=== PATIENT | female | born 1940 | race Caucasian/White ===

== ENCOUNTER 2018-06-18 00:35 | Emergency (ER) | payer MEDICARE, OTHER, SELFPAY ==
[2018-06-18 00:35] VITALS: BP 183/91; PULSE 87; RESP 16; TEMP 36.4; O2SAT 96; BMI 32.8
--- NOTE | 2018-06-18 01:15 | EKG12_ITS ---
Test Reason : CP Blood Pressure : / mmHG Vent. Rate : 082 BPM Atrial Rate : 082 BPM P-R Int : 142 ms QRS Dur : 082 ms QT Int : 374 ms P-R-T Axes : 057 057 066 degrees QTc Int : 436 ms Normal sinus rhythm Low voltage QRS Borderline ECG Confirmed by AZUL RODRIGUEZ, TORIE ([id number]), science editor TY STAUFFER ([id number]) on 06/22/2018 5:12:04 PM Referred By: SHON Confirmed By:TORIE LIANG MD
--- NOTE | 2018-06-18 01:15 | RAD_ITS ---
STUDY: X-RAY CHEST REASON FOR EXAM: Female, 78 years old. Chest pain. TECHNIQUE: AP portable chest COMPARISON: None. FINDINGS: The lungs are clear and expanded. There is no demonstrated pleural abnormality. Mildly elevated right hemidiaphragm. Normal size heart. Normal mediastinum and augustina. Normal visualized pulmonary arteries. Normal visualized aortic arch and descending thoracic aorta. Normal visualized thoracic spine. Normal visualized ribs, clavicles, and shoulders. There is no demonstrated abnormality of the visualized soft tissue structures of the upper abdomen. RAD/Chest 1 View (Portable) IMPRESSION: No acute cardiopulmonary disease. Electronically Signed: Erik Mckinnon MD at 2:10 EST , Service support ,
[2018-06-18 01:24] LABS: Absolute Lymphocyte Count 3.73 X10^3/ul (0.83-4.51); Absolute Neutrophil Count 3.6 X10^3/uL (2.0-7.7); Basophil# 0.03 X10^3/uL; Basophil% 0.4 % (0-1); Eosinophil# 0.28 X10^3/uL; Eosinophils% 3.3 % (0-5); Hematocrit 39.4 % (37-47); Lymphocyte # 3.73 X10^3/ul (4.0); Lymphocyte % 44.6 % (19-41); Mean Corpuscular Hgb 32.2 pg (27.0-32.0); Mean Corpuscular Volume 97.5 fL (81-99); Mean Platelet Vol. 9.9 fl (6.2-12.0); Monocyte% 8.4 % (0-10); Neutrophil # 3.61 X10^3/uL (2.7-7.7); Neutrophil % 43.2 % (47-70); Platelet Count 226 K/mm3 (150-450); RBC Distribution Width CV 13.2 % (11.6-14.6); Red Blood Count 4.04 M/mm3 (4.2-5.4); White Blood Count 8.4 K/mm3 (4.4-11.0)
[2018-06-18 01:26] VITALS: O2SAT 98
[2018-06-18 01:27] LABS: POSITIVE COUNT NO; POSITIVE DIFFERENTIAL NO; POSITIVE MORPHOLOGY NO
[2018-06-18] MEDS: Mag Hydrox/Al Hydrox/Simeth 30 ML UDC PO (01:27)
[2018-06-18 01:38] LABS: ALB/GLOB Ratio 0.9 RATIO (0.9-2.4); AST(SGOT) 34 U/L (15-37); Alanine Aminotransfer ALT/SGPT 63 U/L (13-56); Albumin, Serum 3.5 g/dL (3.2-5.0); Alkaline Phosphatase 131 U/L (45-117); Anion Gap 13 (5-15); BUN 18 mg/dL (7-18); BUN/Creat Ratio 17.1 RATIO (10-20); Calcium,Total 8.1 mg/dL (8.5-10.1); Chloride 108 mmol/L (98-107); Creatinine, Serum 1.05 mg/dL (0.55-1.02); EST Glomerular Filtration Rate 54 mL/min (>60); Est Glom Filt Rate - Afr Amer 65 mL/min (>60); Estimated Creatinine Clearance 32.23 ml/min; Globulin 3.8 g/dL (2.2-4.2); Glucose 104 mg/dL (74-106); Lipase 126 U/L (73-393); Protein, Total 7.3 g/dL (6.4-8.2); Sodium Level 145 mmol/L (136-145)
[2018-06-18 02:27] VITALS: BP 138/70; PULSE 75; RESP 14; O2SAT 95
--- NOTE | 2018-06-18 03:05 | ED.VISSUMM ---
- ER Visit Summary Date of Service: 06/18/18 Chief Complaint: Burning History of Present Illness: The patient is a 78 F with a burning pain that woke her up tonight. She feels like bile is coming up from her stomach. She has pain in her stomach, chest, and throat. She tried to drink some water with no improvement. She reports a history of acid reflux. She also has a history of high blood pressure and high cholesterol. Denies smoking. She does take meloxicam among her other medications. She denies any history of heart disease, PE, or dissection. Physical Examination: Afebrile and vital signs unremarkable except for a blood pressure of 154/74. Alert and oriented. No acute distress. Moving, sitting, breathing, and speaking without difficulty. Heart regular rate and rhythm. Lungs show mild expiratory wheeze diffusely. Abdomen soft and nontender. Calves nontender. Symmetric. Skin normal without rash, pallor, or diaphoresis. Test Results: EKG showed sinus rhythm at a rate of 82. Chest x-ray showed no acute process. CBC normal. Chloride 108, creatinine 1.05, alkaline phosphatase 131 and ALT 63. Lipase normal. Troponin normal. Emergency Department Course and Treatment: Patient was treated with a GI cocktail while awaiting results. Her symptoms sounded GI in nature, but given her risk factors and age, I did check labs, EKG, chest x-ray. Workup was fairly unremarkable. Alkaline phosphatase and ALT were both very slightly elevated and I do not believe this is of any clinical significance at this point. Troponin was normal. Chest x-ray and EKG were unremarkable. Findings were discussed with the patient. She declined admission, delta EKG, delta troponin, albuterol and breathing treatments. She said the GI cocktail helped a little bit but she still had some burning. She was treated with famotidine. She says she would like to follow-up with her doctor and she declined any further testing or care here emergently. Risks and benefits were discussed. Patient should return right away for any new or worsening issues. Treatment Plan: As above Disposition: Discharge Impression: 1. Chest pain unclear etiology This note was generated with [employer] dictation software. It may contain incorrect words, spelling, and punctuation that were not noted in review of the chart prior to signing ED Disposition - Plan for ED Patient: Referrals: Sarah Moore MD [Primary Care Provider] -
--- NOTE | 2018-06-18 03:08 | ED.DEP ---
ED Disposition - Plan for ED Patient: Instructions: ED Chest Pain Atypical Unkn Cause Referrals: Sarah Moore MD [Primary Care Provider] -
[2018-06-18 03:25] VITALS: BP 157/89; PULSE 85; RESP 16; O2SAT 100
--- NOTE | 2018-06-18 03:25 | ED.RN ---
pressure bandage applied to pt after she bled through first bandage.
== END 2018-06-18 03:27 | disposition home or self-care (01) ==
LOC: ED 01:45
PROVIDERS: Emergency Provider Emergency Medicine; Family Provider Internal Medicine; PCP Internal Medicine
DX: R07.9 Chest pain, unspecified (principal); R10.9 Unspecified abdominal pain; J02.9 Acute pharyngitis, unspecified; I10 Essential (primary) hypertension; K21.9 Gastro-esophageal reflux disease without esophagitis; E78.00 Pure hypercholesterolemia, unspecified
CPT/HCPCS: 71045; 80053; 83690; 84484; 85025; 93005; 99285; A4216; J3490

== ENCOUNTER → 2018-11-24 07:53 | Outpatient (CLI) | payer MEDICARE, OTHER, SELFPAY ==
--- NOTE | 2018-11-24 08:05 | RAD_ITS ---
STUDY: X-RAY - ESOPHAGUS (BARIUM SWALLOW) WITH FLUOROSCOPY REASON FOR EXAM: Female, 78 years old. Dysphagia for solids and liquids. TECHNIQUE: 21 view(s) of the esophagus were obtained following swallowing of barium. FLUOROSCOPY TIME (if supplied): (1:00) minutes/seconds COMPARISON: None. FINDINGS: There is no demonstrated esophageal foreign body. There is dilatation of the esophagus. Decreased peristaltic activity. No mass lesion is seen. The patient ingested a 12 mm tablet of barium. The tablet is trapped at the gastroesophageal junction. There is atherosclerotic calcification of the aortic arch with tortuosity of the descending aorta. Normal visualized pulmonary parenchyma. Normal visualized osseous structures of the thorax. RAD/Esophagus Only IMPRESSION: Dilated esophagus with decreased peristaltic activity suggestive of achalasia. There is trapping of the 12 mm tablet of barium at the gastroesophageal junction. Electronically Signed: Vincenzo Ruby, at 10:23 EDT , Service support ,
== END ==
PROVIDERS: Family Provider Internal Medicine; PCP Internal Medicine; Referring Provider Nurse Practitioner Adult Health; Visit Provider Nurse Practitioner Adult Health
DX: R13.10 Dysphagia, unspecified (principal)
CPT/HCPCS: 74220

== ENCOUNTER 2021-11-26 04:08 | Emergency (ER) | payer MEDICARE, OTHER, SELFPAY ==
[2021-11-26 04:09] VITALS: BP 156/83; PULSE 73; RESP 16; TEMP 35.7; O2SAT 98; BMI 31.4
--- NOTE | 2021-11-26 04:24 | CT_ITS ---
INDICATION: neck pain, neuro EXAMINATION: CT Spine Cervical W/O Contrast Injection TECHNIQUE: Helically acquired images were obtained of the cervical spine. 2D reformatted images were reviewed. A radiation dose optimization technique was used for this scan. IV Contrast dosage and agent: None. COMPARISON: None. FINDINGS: VERTEBRAE: No fracture or traumatic subluxation. No suspicious osseous lesion identified. Minimal chronic-appearing grade 1 retrolisthesis of C2 over C3. Preserved cervical lordosis. DISCS and SPINAL CANAL: Mild degenerative disc space narrowing at C2-3 and C6-7. Multilevel degenerative facet arthropathy and small endplate osteophytes. No significant spinal canal stenosis. There are few levels of mild neural foraminal stenosis secondary to uncovertebral osteophytes and hypertrophic facet changes (on the right at C2-3, bilaterally C3-4, left C4-5, bilaterally at C6-7). NECK SOFT TISSUES: No prevertebral soft tissue swelling. No other acute findings. LUNG APICES: No acute findings. CT/Spine Cervical without Contras IMPRESSION: Mild cervical spondylosis with no acute osseous abnormality. Electronically Signed: Musa Damon MD at 5:08 EDT ,
--- NOTE | 2021-11-26 04:25 | EKG12_ITS ---
Test Reason : BACKPAIN Blood Pressure : / mmHG Vent. Rate : 066 BPM Atrial Rate : 066 BPM P-R Int : 156 ms QRS Dur : 088 ms QT Int : 414 ms P-R-T Axes : 036 014 025 degrees QTc Int : 434 ms Normal sinus rhythm Normal ECG Confirmed by AZUL RODRIGUEZ, TORIE ([id number]), assignment editor MIRIAM MEJIA ([id number]) on 11/27/2021 1:07:43 PM Referred By: MARJNA Confirmed By:TORIE LIANG MD
--- NOTE | 2021-11-26 04:27 | EX.ED.DYSGE1 ---
HPI History of Present Illness Chief Complaint: Back Informant: patient Onset/Context/Timing Onset: Weeks (1) Context: Gradual Onset Timing: Continuous and Waxes and wanes Quality: pain Location: left neck and shoulder, into LUE Current Severity: Severe Maximum Severity: Severe Worsened by: moving head and LUE Relieved by: nothing Associated Symptoms Associated Symptoms: weakness and paresthesias throughout LUE Narrative Narrative: Patient states she is having severe pain in the left side of her neck, shoulder, shoulder blade, and into her left upper extremity. It feels funny in her hand, all fingers. She states her left arm feels heavy/weak. She denies any chest discomfort or shortness of breath or diaphoresis, no nausea or vomiting or abdominal pain. She has had no rash. She did have a shingles shot in the past. She has never had this pain before the past week, she presents at 4 AM because the pain has become so severe tonight for no obvious reason. She denies any injury or obvious trigger for this pain when it started. She does states she has a history of migraines and last year her neurologist with obtained an MRI of her head as well as her cervical spine, and was told that she has degenerative disc disease in her neck but she was not having this pain at that time. She also states that she occasionally gets a shooting pain down her left lower extremity but without back pain and it is not bothering her right now. She denies any bowel or bladder dysfunction. She walked without any difficulty into the emergency department this morning. She denies having headache right now. No vision changes. [facility] Medical History (Updated 11/26/21 @ 05:[address] Peter Perez MD) Degenerative disc disease GERD (gastroesophageal reflux disease) Hypertension Migraines Home Medications cholestyramine-aspartame 4 gram oral powder (Cholestyramine Light) 1 dose PO DAILY 06/18/18 [History Last Taken Unknown] clindamycin HCl 300 mg capsule 1 cap PO 4X/DAY 06/18/18 [History Last Taken Unknown] ergocalciferol (vitamin D2) 1,250 mcg (50,000 unit) capsule (Vitamin D2) 50,000 unit PO QWEEK 06/18/18 [History Last Taken Unknown] meloxicam 15 mg tablet 15 mg PO DAILY 06/18/18 [History Last Taken Unknown] omeprazole 20 mg capsule,delayed release 20 mg PO DAILY 06/18/18 [History Last Taken Unknown] potassium chloride 10 mEq tablet,extended release(part/cryst) 10 meq PO DAILY 06/18/18 [History Last Taken Unknown] hydrocodone-acetaminophen 5-325mg 5mg-325mg 1 tab PO Q6H PRN PRN Pain 3 days #12 TABLETS 11/26/21 [Rx Last Taken Unknown] Allergy/AdvReac Type Severity Reaction Status Date / Time albuterol Allergy Unknown Verified 11/26/21 04:11 amoxicillin Allergy Hives Verified 11/26/21 04:11 Penicillins Allergy Hives Verified 11/26/21 04:11 sulfamethoxazole Allergy Hives Verified 11/26/21 04:11 [From Bactrim] trimethoprim [From Bactrim] Allergy Hives Verified 11/26/21 04:11 Social History Smoking Status: Never smoker ROS ROS ED Constitutional Constitutional ED: Denies chills or fever(s) Eyes Eyes: Denies change in vision or diplopia ENT ENT ED: Denies rhinorrhea or sore throat Cardiovascular Cardiovascular: Denies chest pain or palpitations Respiratory/Chest Respiratory/Chest: Denies cough or dyspnea Gastrointestinal Gastrointestinal: Denies abdominal pain, diarrhea, nausea or vomiting Genitourinary Genitourinary ED: Denies dysuria or hematuria Musculoskeletal Musculoskeletal: Reports extremity pain and neck pain; Denies back pain Integumentary Denies abscess or rash Neurologic Neurologic: Reports as per HPI, paresthesias LUE and weakness; Denies headache(s) Psychiatric Psychiatric: Denies anxiety or suicidal thoughts EXAM Physical Exam Const Vital Signs: 11/26/21 04:09 Temperature 96.3 F L Temperature Source Temporal Pulse Rate 73 Respiratory Rate 16 Blood Pressure 156/83 H Blood Pressure Mean 107 Pulse Ox 98 Oxygen Delivery Method Room Air Positive well nourished and well developed Constitutional Narrative: Uncomfortable in mild painful distress, grunting. No respiratory distress. General Appearance ED: well developed HEENT Reports moist mucous membranes HEENT Narrative: Normal voice normal oropharynx normocephalic and atraumatic Eyes PERRL and EOMs intact bilaterally Neck Neck Narrative: Holding head over toward the right of midline, does not want to move it because it hurts worse to do so. Supple without meningismus. No carotid bruits. Resp normal respiratory effort and clear to auscultation bilaterally Cardio regular rate, regular rhythm, no murmurs and peripheral pulses 2+ throughout GI non-tender and non-distended Auscultation: normoactive bowel sounds Palpation: soft Back/Spine no CVA tenderness General Back: other FROM Extremity normal to inspection Extremity Narrative: Limited range of motion to the left upper extremity due to pain. Exam is limited due to patient not wanting to move anything because it hurts in the left upper extremity, neck, periscapular area. Everywhere is mildly tender in the scapula/neck/shoulder area. General Extremety ED: Yes edema; Negative for pulses abnormal or tenderness General Extremity: edema bilateral lower extremity Details: mild; Negative for pulses abnormal Neuro oriented x3, CN's II-XII intact bilaterally and no sensory deficits noted Neuro Narrative: Mild weakness left upper extremity versus limited by pain. Normal symmetric 2+ biceps and triceps reflexes, same with patella. Dysesthesias all fingers left upper extremity. No rashes normal appearance of skin. Sensorium / Orientation: awake and alert Skin no rashes or lesions noted and no wounds MDM MDM MDM Narrative Medical decision making narrative: I suspect patient is having a multilevel cervical radiculopathy given the history, exam, and a history of DDD in her cervical spine. However the differential certainly could include cardiac etiologies with referred pain, muscular etiologies, and other cervical spine processes. She has no fevers or chills or reason to have an epidural abscess or other similar emergent pathology. She does not have definitive objective neurologic deficits that speak to the need for an emergent MRI. I did left shoulder x-rays in addition, given the area of her pain and limited exam, 4 views of my interpretation shows no acute abnormality but chronic arthritic abnormalities/changes. Cardiac work-up is negative with a normal EKG and a negative troponin high-sensitivity within numerical result of 4. MRI is not available at this time, I performed a CT of her cervical spine it does not show anything acute but it does show multiple areas of neuroforaminal stenoses, and actually at multiple levels on the left which certainly could be consistent with her clinical presentation. She was treated here with morphine which did help quite a bit and she was much more comfortable. I suspect this is all cervical radiculopathy. We will send her home with a prescription for something for pain, and encourage close outpatient follow-up. Should be given her PCP as well as nutrition specialist since she was having weakness and never had this in the past. She certainly she can choose to follow-up with a physician if she so desires but I am referring her to our local physicians. Lab Data Attestation: I reviewed the patient's lab results. Labs: Laboratory Results - last 24 hr 11/26/21 11/26/21 04:32 04:32 WBC 6.6 RBC 4.10 L Hgb 12.5 Hct 37.2 MCV 90.7 MCH 30.5 MCHC 33.6 RDW Std Deviation 42.9 RDW Coeff of Alea 13.0 Plt Count 253 MPV 9.5 Immature Gran % (Auto) 0.200 Neut % (Auto) 49.5 Lymph % (Auto) 35.1 [place] % (Auto) 12.2 H Eos % (Auto) 2.4 Baso % (Auto) 0.6 Absolute Neuts (auto) 3.2 Absolute Lymphs (auto) 2.30 Nucleated RBC % 0 Sodium 136 Potassium 3.3 L Chloride 102 Carbon Dioxide 27.0 Anion Gap 7 BUN 16 Creatinine 1.00 Estim Creat Clear Calc 49.94 Est GFR (MDRD) Af Amer 69 Est GFR (MDRD) Non-Af 57 L BUN/Creatinine Ratio 16.0 Glucose 102 Calcium 8.9 Troponin I High Sens 4 Radiography Diagnostic Testing: Clinical Impression(s) from Imaging Studies Cervical Spine CT 11/26/21 04:24 IMPRESSION: Mild cervical spondylosis with no acute osseous abnormality. Electronically Signed: Musa Damon MD at 5:08 EDT , Rhythm Strip Rhythm Strip: Sinus Rhythm Rate: 65 Ectopy: None EKG Initial EKG: Attestation: I personally reviewed and interpreted this EKG as follows: Interpretation: Sinus Rhythm and No Acute Injury Pattern Comments: normal EKG Discharge Plan Triage Chief Complaint: Back ED Provider: Peter Perez Dx/Rx/DC Orders Clinical Impression: Cervical radiculopathy, acute, Acute pain of left shoulder, Neck pain on left side Instructions: ED Radiculopathy, Cervical Prescriptions: New hydrocodone-acetaminophen [hydrocodone-acetaminophen] 1 TABLET tablet 1 tab PO Q6H PRN PRN (Reason: Pain) 3 Days Qty: 12 0RF No Action clindamycin HCl 300 MG capsule 1 cap PO 4X/DAY Label Comments: Take 1 capsule by mouth four times daily. meloxicam 15 MG tablet 15 mg PO DAILY omeprazole 20 MG capsule 20 mg PO DAILY ergocalciferol (vitamin D2) [Vitamin D2] 50,000 UNIT capsule 50,000 unit PO QWEEK potassium chloride 10 MEQ tablet,ER particles/crystals 10 meq PO DAILY cholestyramine-aspartame [Cholestyramine Light] 210 GM powder 1 dose PO DAILY Label Comments: USE ONE SCOOP mixed in liquid DAILY FOR ONE WEEK THEN MAY INCREASE TOTWICE DAILY DIRECTED Rx Instructions: 1 scoop daily Primary Care Provider: Sarah Moore Referrals: Sarah Moore MD [Primary Care Provider] - (as needed if in need of further pain control) Altaf Hines DO [Med Staff - Active Staff] - (call for spine follow up appt) Disposition Disposition: Home, Self Care
[2021-11-26] MEDS: Ondansetron 4 MG/2 ML Vial IV (04:31)
[2021-11-26] MEDS: Morphine 4 MG/ML Syringe IV (04:31)
[2021-11-26 04:37] LABS: Absolute Neutrophil Count 3.2 X10^3/uL (2.0-7.7); Basophil# 0.04 X10^3/uL; Basophil% 0.6 % (0-1); Eosinophil# 0.16 X10^3/uL; Eosinophils% 2.4 % (0-5); Hematocrit 37.2 % (37-47); Hemoglobin 12.5 g/dL (12.0-15.0); Lymphocyte % 35.1 % (19-41); Mean Corp Hgb Conc 33.6 g/dL (32-36); Mean Corpuscular Hgb 30.5 pg (27.0-32.0); Mean Corpuscular Volume 90.7 fL (81-99); Mean Platelet Vol. 9.5 fl (6.2-12.0); Monocyte% 12.2 % (0-10); NRBC Flagged by Analyzer 0 % (0-5); Neutrophil # 3.24 X10^3/uL (2.7-7.7); Neutrophil % 49.5 % (47-70); Platelet Count 253 K/mm3 (150-450); RBC Distribution Width SD 42.9 fl (35.1-43.9); White Blood Count 6.6 K/mm3 (4.4-11.0)
--- NOTE | 2021-11-26 04:44 | RAD_ITS ---
INDICATION: Pain radiating from neck into left shoulder. EXAMINATION/TECHNIQUE: X-RAY - LEFT XR Shoulder Min 2 Views: AP neutral, internal rotation, external rotation, and scapular Y views COMPARISON: None. FINDINGS: SOFT TISSUES: No significant soft tissue swelling. BONES/JOINTS: No acute fracture or subluxation. Normal alignment. Preservation of the joint space(s). Prominent osteophyte along the medial humeral head at the inferior margin of the glenohumeral joint. Mild acromioclavicular osteophytosis. Punctate calcification abutting superior lateral humeral head at the level of the rotator cuff insertion. RAD/Shoulder min 2 Views IMPRESSION: Mild glenohumeral and acromioclavicular osteoarthrosis with mild calcific tendinitis at level of rotator cuff insertion. Electronically Signed: Musa Damon MD at 5:35 EDT ,
[2021-11-26 05:08] LABS: Anion Gap 7 (5-15); BUN 16 mg/dL (7-18); Calcium,Total 8.9 mg/dL (8.5-10.1); Chloride 102 mmol/L (98-107); EST Glomerular Filtration Rate 57 mL/min (>60); Est Glom Filt Rate - Afr Amer 69 mL/min (>60); Estimated Creatinine Clearance 49.94 ml/min; Glucose 102 mg/dL (74-106); Potassium 3.3 mmol/L (3.5-5.1); Sodium Level 136 mmol/L (136-145); Troponin-I HS 4 pg/mL (3.0-54.0)
[2021-11-26 05:36] VITALS: RESP 18
== END 2021-11-26 05:44 | disposition home or self-care (01) ==
PROVIDERS: Emergency Provider Emergency Medicine; PCP Internal Medicine; Visit Provider Emergency Medicine
DX: M50.11 Cervical disc disorder with radiculopathy, high cervical region (principal); M19.012 Primary osteoarthritis, left shoulder
CPT/HCPCS: 72125; 73030; 80048; 84484; 85025; 93005; 96374; 96375; 99283; A4216; J2405

== ENCOUNTER → 2022-10-08 | Outpatient (CLI) | payer MEDICARE, OTHER, SELFPAY ==
[2022-10-08 10:52] LABS: Absolute Lymphocyte Count 2.11 X10^3/uL (0.83-4.51); Absolute Neutrophil Count 3.9 X10^3/uL (2.0-7.7); Basophil# 0.05 X10^3/uL; Basophil% 0.7 % (0-1); Eosinophil# 0.23 X10^3/uL; Eosinophils% 3.3 % (0-5); Hematocrit 40.9 % (37-47); Hemoglobin 13.5 g/dL (12.0-15.0); Lymphocyte # 2.11 X10^3/ul (0.83-4.51); Lymphocyte % 30.7 % (19-41); Mean Corpuscular Hgb 30.8 pg (27.0-32.0); Mean Corpuscular Volume 93.2 fL (81-99); Monocyte# 0.58 X10^3/uL; Monocyte% 8.4 % (0-10); NRBC Flagged by Analyzer 0 % (0-5); Neutrophil # 3.88 X10^3/uL (2.7-7.7); Neutrophil % 56.6 % (47-70); Platelet Count 250 K/mm3 (150-450); RBC Distribution Width CV 12.9 % (11.6-14.6); RBC Distribution Width SD 44.2 fl (35.1-43.9); Red Blood Count 4.39 M/mm3 (4.2-5.4); White Blood Count 6.9 K/mm3 (4.4-11.0)
[2022-10-08 11:30] LABS: Vitamin D,25 Hydroxy 62.4 ng/mL
[2022-10-08 11:39] LABS: ALB/GLOB Ratio 0.8 RATIO (0.9-2.4); AST(SGOT) 19 U/L (15-37); Alanine Aminotransfer ALT/SGPT 24 U/L (13-56); Albumin, Serum 3.3 g/dL (3.2-5.0); Alkaline Phosphatase 98 U/L (45-117); Anion Gap 6 (5-15); BUN 20 mg/dL (7-18); BUN/Creat Ratio 19.8 RATIO (10-20); Chloride 108 mmol/L (98-107); Cholesterol 189 mg/dL (200); Creatinine, Serum 1.01 mg/dL (0.55-1.02); EST Glomerular Filtration Rate 56 mL/min (>60); Est Glom Filt Rate - Afr Amer 68 mL/min (>60); Globulin 4.1 g/dL (2.2-4.2); Glucose 88 mg/dL (74-106); High Density Lipoprotein 67 mg/dL; Magnesium 2.1 mg/dL (1.6-2.6); Potassium 4.2 mmol/L (3.5-5.1); Protein, Total 7.4 g/dL (6.4-8.2); Sodium Level 141 mmol/L (136-145); Thyroid Stim Hormone (TSH) 1.25 uIU/mL (0.358-3.74); Triglycerides 93 mg/dL; Very Low Density Lipoprotein 19 mg/dL (5-40)
== END | disposition home or self-care (01) ==
LOC: LAB 09:19
PROVIDERS: PCP Internal Medicine; Referring Provider Internal Medicine; Visit Provider Internal Medicine
DX: E55.9 Vitamin D deficiency, unspecified (principal); M19.90 Unspecified osteoarthritis, unspecified site; I10 Essential (primary) hypertension; E78.00 Pure hypercholesterolemia, unspecified
CPT/HCPCS: 36415; 80053; 80061; 82306; 83735; 84443; 85025

== ENCOUNTER 2022-11-12 07:46 | Day surgery (SDC) | payer MEDICARE, OTHER, SELFPAY ==
[2022-11-12] VITALS (7 sets, daily range): BP systolic 117–143; BP diastolic 59–79; PULSE 79–89; RESP 16; TEMP 36.3–36.6; O2SAT 98–100; BMI 30.7
[2022-11-12] MEDS: Lactated Ringers 1,000 ML 15 ML IV (08:16)
--- NOTE | 2022-11-12 08:28 | HP.PCM_ITS ---
History and Physical Date of Admission: 11/12/22 Visit Reasons: COLONOSCOPY Chief Complaint: colonoscopy Is patient in pain?: No Allergies albuterol Allergy (Verified 10/22/22 13:15) Unknownamoxicillin Allergy (Verified 10/22/22 13:15) HivesPenicillins Allergy (Verified 10/22/22 13:15) Hivessulfamethoxazole [From Bactrim] Allergy (Verified 10/22/22 13:15) Hivestrimethoprim [From Bactrim] Allergy (Verified 10/22/22 13:15) Hives Medications cholestyramine-aspartame 4 gram oral powder (Cholestyramine Light) 1 dose PO DAILY 06/18/18 [History Confirmed 10/22/22] omeprazole 20 mg capsule,delayed release 20 mg PO DAILY 06/18/18 [History Confirmed 10/22/22] cholecalciferol (vitamin D3) 125 mcg (5,000 unit) capsule 125 mcg PO DAILY 08/28/22 [History Confirmed 10/22/22] coq10 PO 08/28/22 [History Confirmed 10/22/22] fremanezumab-vfrm 225 mg/1.5 mL subcutaneous auto-injector (Ajovy) 225 mg subcut QMONTH 08/28/22 [History Confirmed 10/22/22] ketonazole shampoo topical 08/28/22 [History Confirmed 10/22/22] magnesium 250 mg tablet See Rx Instructions PO DAILY 08/28/22 [History Confirmed 10/22/22] meclizine 12.5 mg tablet 12.5 mg PO BID-QID PRN 08/28/22 [History Confirmed 10/22/22] methocarbamol 750 mg tablet 750 mg PO .COMPLEX PRN 08/28/22 [History Confirmed 10/22/22] riboflavin (vitamin B2) 100 mg tablet 100 mg PO BID 08/28/22 [History Confirmed 10/22/22] rizatriptan 10 mg tablet See Rx Instructions PO .COMPLEX 08/28/22 [History Confirmed 10/22/22] spironolactone 25 mg tablet 25 mg PO DAILY 08/28/22 [History Confirmed 10/22/22] sucralfate 1 gram tablet 1 g PO BID 08/28/22 [History Confirmed 10/22/22] triamcinolone acetonide 0.1 % topical cream 1 applic topical BID #30 grams 09/11/22 [Rx Confirmed 10/22/22] diclofenac sodium 1 % topical gel 2 g topical BID PRN Osteoarthritis #100 grams 09/30/22 [Rx Confirmed 10/22/22] PFSH Medical History (Updated 10/22/22 @ 13:[address] Shalom Pratt MD) Chronic GERD Degenerative disc disease GERD (gastroesophageal reflux disease) Hearing problem High cholesterol Hypertension IBS (irritable bowel syndrome) Migraines Osteoarthritis Recurrent infections UTI (urinary tract infection) Surgical History (Updated 08/28/22 @ 09:42 by Omega Bustillos) Bunion FH: cholecystectomy H/O: hysterectomy History of bladder surgery History of knee replacement Family History (Updated 08/28/22 @ 09:59 by Omega Bustillos) Mother Hypertension Arthritis Bowel disease Myocardial infarction, Onset Age: 70 Age related osteoporosisFather Diabetes Myocardial infarction, Onset Age: 50 Social History (Updated 09/11/22 @ 15:26 by Omega Bustillos) adopted: No household members: spouse housing: house number of children: 6 current occupational status: employed current occupation: [employer] current occupational exposures/hazards: No pets and animals: Yes pets and animals: cat(s) leisure activities: exercise, reading and other history of recent travel: No sexually active: No Smoking Status: Never smoker alcohol intake: never substance use type: does not use well-balanced diet: daily or most days caffeine: No eating out: rarely or never during the past year weight has: increased > 10 lbs what type of physical activity do you participate in: walking and aerobics 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 Sonya Sethi for surgical consultation regarding colonoscopy. Most recent colonoscopy was January 09, [address] Bhavin Brown. By report she might of had previous polyps. It is a note that she has also had a previous esophagogastroduodenoscopy November 02, 2018 which demonstrated normal esophagus some mild gastritis. That was performed by Dr. Toy Clay. Past 2 years the patient's had progressive diarrhea. She is tentatively been diagnosed as having irritable bowel syndrome. To help with her symptoms she was started on colestipol which has helped. No bright red blood per rectum or melena. Last colonoscopy was over 10 years ago. She does have any abdominal pain. Note no unexpected weight loss. 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 She does get swelling in her legs but she is able to relieve that in the afternoons by elevating her legs. She has been told that recently a slight heart murmur was detected but that that is not felt to be of consequence. She is interested however in trying to help determine the potential source of her diarrhea and any other particular treatment patterns that might be pertinent. ROS General General: Yes fatigue; No weight change, appetite, colon cancer, breast cancer or weakness HEENT HEENT: Yes eye surgery; No difficulty swallowing, eye injury, swollen glands or hoarseness Endo Endocrine: No thyroid disease, diabetes mellitus, thyroid cancer, Hair loss, heat intolerance or cold intolerance Skin Skin: Yes rash; No changing moles Musc Musculoskeletal: Yes arthritis; No back problems, rheumatoid arthritis, gout or joint pain Cardio Cardiovascular: Yes murmur and high blood pressure; No pacemaker, heart disease, atrial fibrillation, heart attack, heart stent, palpitations, shortness of breat with exertion or chest pain Psych Psychiatric: No depression, anxiety or hearing voices Resp Respiratory: Yes shortness of breath, No sleep apnea, No cough, No COPD, No asthma, No emphysema and No wheezing Gastro Gastrointestinal: No abdominal pain, No nausea or vomiting, Yes diarrhea, No constipation, No blood in stool, Yes acid reflux, Yes hemorrhoids, No ulcers, No gallbladder problem and No black,tarry stools Kevin Hematologic: No blood thinners, No blood disorders, No bleeding, No anemia and No blood clots Neuro Neurologic: No system reviewed and no additional complaints, except as documented, No as per HPI, No abnormal gait, No abnormal hearing, No abnormal movements, No abnormal speech, No behavioral changes, No burning sensations, No confusion, No convulsions, No disequilibrium, No dizziness, No localized weakness, No frequent falls, No headache(s), No lack of coordination, No loss of vision, No memory loss, No numbness, No other visual disturbances, No radicular pain, No restless legs, No sensory deficit, No syncope, No tingling, No tremor(s), No weakness and No other Exam Const General: cooperative, comfortable and no acute distress [facility] Head: normal to inspection Eyes General: appearance normal, both eyes and all related structures Neck Neck: normal visual inspection Chest Chest palpation & inspection: normal inspection of the chest Resp Effort & Inspection: normal respiratory effort Auscultation: clear to auscultation bilaterally Cardio Rate: regular rate Rhythm: regular rhythm GI Inspection: normal to inspection Palpation: soft and no hepatosplenomegaly Musc Cervical Spine: normal cervical lordosis Skin General: no rashes or lesions noted Neuro General: patient alert and patient awake Extrem Other: 2+ bilateral extremity nonpitting edema Psych Appearance: grossly normal Assessment and Plan Assessment and Plan (1) Chronic diarrhea: Status: Chronic Plan Chronic diarrhea of undetermined etiology. The patient is living a very high quality of life and is still fully employed for close to 40 hours/week. I recommend to her colonoscopy with possible biopsy or polypectomy as indicated. Careful inspection for source of diarrhea with possible random biopsies. She is had an opportunity ask and have questions answered. I very much appreciate the kind option of assisting with the surgical care. We will schedule procedure at her discretion. Copy: Dr. Sonya Pratt M.D., F.A.C.S I have examined the patient and the H&P has been reviewed. There are no clinical changes since date of exam. Shalom Pratt M.D., F.A.C.S.
--- NOTE | 2022-11-12 09:00 | COLBX_PTH ---
PATIENT: KENDAL SHARP LOC: EN U#:[id number] AGE/SX: 82/F ROOM: RE11/12/[address]: Dr. Shalom Pratt MD : 1940 BED: DIS: 11/12/2022 SPEC #: [id number] RECD: 11/12/22 11:48 STATUS: TYSHAWN ARTEM #: [id number] KEKE: 11/12/22 09:[address]: Shalom Pratt DEPT: SURGICAL PATHOLOGY RECD BY: Pham Jensen ENTERED: 11/12/22 12:21 SP TYPE: COLON BX OT DR: Dr. Sonya Sethi MD Tissues: A - COLON BIOPSY B - Sigmoid colon biopsy Procedures: Surgery Specimen Level IV HEADER OPERATION: Colonoscopy (MAC) with polypectomy and biopsies PRE-OP DIAGNOSIS: Chronic diarrhea TISSUE SUBMITTED: A - Random colon biopsies, B - Distal sigmoid polyp MICROSCOPIC DIAGNOSIS A. Colon, random biopsy: No pathologic change. B. Distal sigmoid colon polyp, biopsy: Benign fragment of colonic mucosa with thermal artifact. AM:jorge 11/13/2022 MICROSCOPIC DESCRIPTION Slides are reviewed. GROSS DESCRIPTION A - Received in fixative is one container labeled with the patient's name and designated random colon biopsy. The specimen consists of multiple irregular fragments of light carranza soft tissue that in aggregate measure 1.5 x 0.5 x 0.1 cm. The specimen is totally submitted in one cassette. B - Received in fixative is one container labeled with the patient's name and designated distal sigmoid polyp. The specimen consists of one irregular fragment of light carranza soft tissue that measures 0.2 x 0.2 x 0.1 cm. The specimen is totally submitted in one cassette. / SJ:jorge 11/12/2022 TC:5 CPT: 56551 x2
--- NOTE | 2022-11-12 09:53 | OP.CCLET_ITS ---
11/12/2022 Sonya Sethi [facility] [address] [place] [address] Re : Colonoscopy procedure for [facility] Dear Dr. Sethi This procedure was performed on Saturday, November 12, 2022. My impressions and recommendations are as follows: Impressions : - Hemorrhoids found on perianal exam. - One 4 mm polyp in the distal sigmoid colon, removed with a hot snare. Resected and retrieved. - Diverticulosis in the sigmoid colon and in the descending colon. - Biopsies were taken with a cold forceps from the entire colon for evaluation of microscopic colitis. Recommendations : - Discharge patient to home. - Resume previous diet. - Continue present medications. - Repeat colonoscopy in 5 years for surveillance based on pathology results. - Telephone my office for pathology results in 1 week. My findings are described in the full procedure note, which is enclosed. If I can be of further assistance, please feel free to contact me at Doctor phone number(s): Work: . Sincerely, Shalom Pratt MD 11/12/2022 9:52:34 AM This report has been signed electronically.
--- NOTE | 2022-11-12 09:53 | OP.COLON_ITS ---
Patient Name: Clemencia Taylor Procedure Date: 11/12/2022 7:21 AM Date of : 1940 Age: 82 Procedure: Colonoscopy Indications: Chronic diarrhea Providers: Shalom Pratt MD Referring MD: Sonya Sethi Medicines: See the Anesthesia note for documentation of the administered medications Patient Profile: Last Colonoscopy: December 2010. Complications: No immediate complications. Procedure: Pre-Anesthesia Assessment: - Prior to the procedure, a History and Physical was performed, and patient medications and allergies were reviewed. The patient's tolerance of previous anesthesia was also reviewed. The risks and benefits of the procedure and the sedation options and risks were discussed with the patient. All questions were answered, and informed consent was obtained. Prior Anticoagulants: The patient has taken no previous anticoagulant or antiplatelet agents. ASA Grade Assessment: II - A patient with mild systemic disease. After reviewing the risks and benefits, the patient was deemed in satisfactory condition to undergo the procedure. After I obtained informed consent, the scope was passed under direct vision. Throughout the procedure, the patient's blood pressure, pulse, and oxygen saturations were monitored continuously. The pediatric colonoscope was introduced through the anus and advanced to the cecum, identified by appendiceal orifice and ileocecal valve. The colonoscopy was performed without difficulty. The patient tolerated the procedure well. The quality of the bowel preparation was good. The ileocecal valve was photographed. Scope In: 9:28:35 AM Scope Withdrawal Time 0 hours 10 minutes 24 seconds Scope Out: 9:46:15 AM Total Procedure Duration Time 0 hours 17 minutes 40 seconds Findings: Hemorrhoids were found on perianal exam. A 4 mm polyp was found in the distal sigmoid colon. The polyp was sessile. The polyp was removed with a hot snare. Resection and retrieval were complete. Multiple diverticula were found in the sigmoid colon and descending colon. Biopsies for histology were taken with a cold forceps from the entire colon for evaluation of microscopic colitis. Impression: - Hemorrhoids found on perianal exam. - One 4 mm polyp in the distal sigmoid colon, removed with a hot snare. Resected and retrieved. - Diverticulosis in the sigmoid colon and in the descending colon. - Biopsies were taken with a cold forceps from the entire colon for evaluation of microscopic colitis. Recommendation: - Discharge patient to home. - Resume previous diet. - Continue present medications. - Repeat colonoscopy in 5 years for surveillance based on pathology results. - Telephone my office for pathology results in 1 week. Procedure Code(s): --- Professional --- 69264, Colonoscopy, flexible; with removal of tumor(s), polyp(s), or other lesion(s) by snare technique 08603, 59, Colonoscopy, flexible; with biopsy, single or multiple Diagnosis Code(s): --- Professional --- K64.9, Unspecified hemorrhoids D12.5, Benign neoplasm of sigmoid colon K52.9, Noninfective gastroenteritis and colitis, unspecified K57.30, Diverticulosis of large intestine without perforation or abscess without bleeding CPT copyright 2017 [employer]. All rights reserved. The codes documented in this report are preliminary and upon resource agent review may be revised to meet current compliance requirements. Shalom Pratt MD 11/12/2022 9:52:34 AM This report has been signed electronically. Number of Addenda: 0 Note Initiated On: 11/12/2022 7:21 AM
--- NOTE | 2022-11-12 09:58 | NURSING ---
dr awan spoke to family
== END 2022-11-12 10:47 | disposition home or self-care (01) ==
LOC: EN 07:46 → AC 07:47
PROVIDERS: PCP Internal Medicine; Referring Provider Internal Medicine; Visit Provider Surgery
PROC: 0DJD8ZZ Inspection of Lower Intestinal Tract, Via Natural or Artificial Opening Endoscopic (ICD-10-PCS; CPT 45378; principal; 2022-11-12 08:55)
DX: K57.30 Diverticulosis of large intestine without perforation or abscess without bleeding (principal); K29.70 Gastritis, unspecified, without bleeding; I10 Essential (primary) hypertension; K64.9 Unspecified hemorrhoids; E78.00 Pure hypercholesterolemia, unspecified; D12.5 Benign neoplasm of sigmoid colon; K52.9 Noninfective gastroenteritis and colitis, unspecified
CPT/HCPCS: 45385; 45380; 88305; J7120; J2405

== ENCOUNTER 2022-11-12 11:28 | Emergency (ER) | payer MEDICARE, OTHER, SELFPAY ==
[2022-11-12 11:29] VITALS: BP 129/64; PULSE 83; RESP 14; TEMP 36.6; O2SAT 99; BMI 31.1
--- NOTE | 2022-11-12 11:50 | RAD_ITS ---
INDICATION: LEFT FOOT PAIN AFTER SYNCOPAL EPISODE. EXAMINATION/TECHNIQUE: X-RAY - LEFT XR Foot Min 3 Views 3 VIEWS COMPARISON: None. FINDINGS: SOFT TISSUES: No soft tissue swelling or gas. No radiopaque foreign body. BONES/JOINTS: No acute fracture or subluxation. Normal alignment. Preservation of the joint space.. No sclerotic or destructive changes observed. RAD/Foot min 3 Views IMPRESSION: No acute osseous abnormality of the left foot. Electronically Signed: Chente De La Cruz MD at 12:12 EDT Reading Location ID and State: [id number] / Unknown , Service support ,
--- NOTE | 2022-11-12 12:54 | EX.ED.DYSGE1 ---
HPI History of Present Illness Chief Complaint: Lower Extremity Injury Narrative Narrative: Patient is a 82-year-old female who had a injury yesterday. Patient was getting ready for her colonoscopy prep and in the middle of drinking her colonoscopy prep. Patient had a near syncopal episode where she had fallen, twisting her left foot somehow. Patient still was able to complete the colonoscopy prep yesterday, and she did have a colonoscopy today were only 1 polyp was removed. No complications during the colonoscopy today. Patient is having pain to the top of her left foot. Patient works at a [employer] where she is walking and moving frequently. She is due to start working again on November 14. Patient is able to walk with pain on the left foot. Patient has no other injury from the fall yesterday. Patient did not hit her head. She has no chest pain or shortness of breath, no other acute complaints. [facility] Medical History (Updated 11/12/22 @ 12:[address] Altaf Vidal, DO) Chronic GERD CPAP (continuous positive airway pressure) dependence Degenerative disc disease GERD (gastroesophageal reflux disease) Hearing problem Heart murmur High cholesterol History of echocardiogram History of IBS Hypertension IBS (irritable bowel syndrome) Migraines MRSA infection Non-smoker Osteoarthritis Recurrent infections Sleep apnea UTI (urinary tract infection) Wears glasses Wears hearing aid Home Medications omeprazole 20 mg capsule,delayed release 40 mg PO DAILY 06/18/18 [History Last Taken Unknown] cholecalciferol (vitamin D3) 125 mcg (5,000 unit) capsule 125 mcg PO DAILY 08/28/22 [History Last Taken Unknown] coq10 1 tab PO 1XD 08/28/22 [History Last Taken Unknown] fremanezumab-vfrm 225 mg/1.5 mL subcutaneous auto-injector (Ajovy) 225 mg subcut QMONTH 08/28/22 [History Last Taken Unknown] ketonazole shampoo 1 applic topical 1XD PRN dry skin 08/28/22 [History Last Taken Unknown] magnesium 250 mg tablet See Rx Instructions PO DAILY 08/28/22 [History Last Taken Unknown] meclizine 12.5 mg tablet 12.5 mg PO BID-QID PRN motion sickness 08/28/22 [History Last Taken Unknown] methocarbamol 750 mg tablet 750 mg PO .COMPLEX PRN pain 08/28/22 [History Last Taken Unknown] riboflavin (vitamin B2) 100 mg tablet 100 mg PO BID 08/28/22 [History Last Taken Unknown] rizatriptan 10 mg tablet See Rx Instructions PO .COMPLEX 08/28/22 [History Last Taken Unknown] spironolactone 25 mg tablet 25 mg PO DAILY 08/28/22 [History Last Taken Unknown] sucralfate 1 gram tablet 1 g PO BID 08/28/22 [History Last Taken Unknown] triamcinolone acetonide 0.1 % topical cream 1 applic topical BID #30 grams 09/11/22 [Rx Last Taken Unknown] diclofenac sodium 1 % topical gel 2 g topical BID PRN Osteoarthritis #100 grams 09/30/22 [Rx Last Taken Unknown] colestipol 1 gram tablet 1 g PO DAILY 11/11/22 [History Last Taken Unknown] Allergy/AdvReac Type Severity Reaction Status Date / Time albuterol Allergy Unknown Verified 11/12/22 11:29 amoxicillin Allergy Hives Verified 11/12/22 11:29 Penicillins Allergy Hives Verified 11/12/22 11:29 sulfamethoxazole Allergy Hives Verified 11/12/22 11:29 [From Bactrim] trimethoprim [From Bactrim] Allergy Hives Verified 11/12/22 11:29 Family History Mother Hypertension Arthritis Bowel disease Myocardial infarction, Onset Age: 70 Age related osteoporosis Father Diabetes Myocardial infarction, Onset Age: 50 Surgical History Bunion (~1988) FH: cholecystectomy H/O: hysterectomy (~1980) History of bladder surgery (~2003) History of knee replacement (~2013) Social History (Updated 09/11/22 @ 15:26 by Omega Bustillos) adopted: No household members: spouse housing: house number of children: 6 current occupational status: employed current occupation: [employer] current occupational exposures/hazards: No pets and animals: Yes pets and animals: cat(s) leisure activities: exercise, reading and other history of recent travel: No sexually active: No Smoking Status: Never smoker alcohol intake: never substance use type: does not use well-balanced diet: daily or most days caffeine: No eating out: rarely or never during the past year weight has: increased > 10 lbs what type of physical activity do you participate in: walking and aerobics brenda/buddhist: Religion seatbelt use: always do you feel safe at home: Yes ROS ROS ED ROS Narrative REVIEW OF SYSTEMS: Unless otherwise stated in this report the patient's positive and negative responses for review of systems for constitutional, eyes, ENT, cardiovascular, respiratory, gastrointestinal, neurological, , musculoskeletal, and integument systems and related systems to the presenting problem are either stated in the history of present illness or were not pertinent or were negative for the symptoms and/or complaints related to the presenting medical problem. EXAM Physical Exam Narrative Exam Narrative: Vital signs reviewed and patient is not hypoxic. General: The patient appears well and in no apparent distress. Patient is resting comfortably on cart. Not toxic, lethargic, or listless. Skin: Warm, dry, no pallor noted. There is no rash noted. Head: Normocephalic, atraumatic Eye: Normal conjunctiva, no drainage, EOMI. PERRL. Ears, Nose, Mouth, and Throat: oral mucosa is moist. Nares patent. Mouth without vesicles. Cardiovascular: Regular Rate and Rhythm, no murmurs, gallops, or rubs Respiratory: Patient is in no distress, no accessory muscle use, lungs are clear to auscultation, no wheezing, rales or rhonchi Musculoskeletal: The patient has full range of motion of all extremities and joints with no difficulty except to left foot. Patient has normal swelling inflammation to bilateral lateral malleoli, patient states that is chronic and dependent edema. Patient has moderate tenderness palpation to the dorsal aspect of the midfoot with minimal redness. Patient has mild pain with flexion extension of all 5 toes as well. Patient's Achilles tendon is intact. No pain to proximal fibular head. No pain to the medial or lateral malleoli of the left ankle. Patient has no motor, no sensory deficits. No obvious deformity to the left foot. Neurological: A&O x4, normal speech, no focal neurological deficits. Psychiatric: Cooperative Const Vital Signs: 11/12/22 11:29 Temperature 97.8 F Temperature Source Temporal Pulse Rate 83 Respiratory Rate 14 Blood Pressure 129/64 H Blood Pressure Mean 85 Pulse Ox 99 Oxygen Delivery Method Room Air MDM MDM MDM Narrative Medical decision making narrative: Procedure note: Patient had Valentino wrap and postop shoe placed to the left foot. Splint was assisted with Dr. Vidal. The patient was neurovascular intact before and after the splint was placed. The affected bones/injured area had proper alignment in a splint. Education on splint care at home was given at bedside. Patient and family had no questions at disposition. Patient was educated using ice, use anti-inflammatories, and wear Valentino wrap and postop shoe when she is ambulating for the next 3 to 5 days. Patient was given a work note with restrictions as well, she is due to go back to work at the [employer] on November 14. Patient had no abnormalities during the colonoscopy today. Patient at bedside. No questions at discharge. Patient x-ray showed no acute findings Radiography X-Ray: Read by ED Physician (Left foot x-ray shows no acute fracture, dislocation or acute abnormality.) Diagnostic Testing: Clinical Impression(s) from Imaging Studies Foot X-Ray 11/12/22 11:50 IMPRESSION: No acute osseous abnormality of the left foot. Electronically Signed: Chente De La Cruz MD at 12:12 EDT Reading Location ID and State: [facility] / Unknown , Service support , Discharge Plan Triage Chief Complaint: Lower Extremity Injury ED Provider: Altaf Vidal Dx/Rx/DC Orders Clinical Impression: Acute pain of left foot, Sprain of foot, left Instructions: Treating?Strains and Sprains, ED Bandage Elastic Wrap, ED Foot Sprain, ED RICE, ED Splints and Casts Prescriptions: No Action triamcinolone acetonide 0.1 % cream 1 applic topical BID Qty: 30 1RF Ajovy Autoinjector 225 mg/1.5 mL auto-injector 225 mg subcut QMONTH methocarbamol 750 mg tablet 750 mg PO .COMPLEX PRN (Reason: pain) Rx Instructions: 1 - 2 tabs orally daily PRN; rizatriptan 10 mg tablet See Rx Instructions PO .COMPLEX Rx Instructions: take 1 tab at onset of headache; if no relief may repeat 1 tab after at least 2 hrs; max = 3 tabs/24 hr PO spironolactone 25 mg tablet 25 mg PO DAILY sucralfate 1 gram tablet 1 g PO BID ketonazole shampoo 1 applic topical 1XD PRN (Reason: dry skin) Rx Instructions: 2% meclizine 12.5 mg tablet 12.5 mg PO BID-QID PRN (Reason: motion sickness) magnesium 250 mg tablet See Rx Instructions PO DAILY Rx Instructions: 2 tabs =500mg orally daily; coq10 1 tab PO 1XD Rx Instructions: 300mg daily riboflavin (vitamin B2) 100 mg tablet 100 mg PO BID cholecalciferol (vitamin D3) 125 mcg (5,000 unit) capsule 125 mcg PO DAILY omeprazole 20 MG capsule 40 mg PO DAILY colestipol 1 gram tablet 1 g PO DAILY diclofenac sodium 1 % gel 2 g topical BID PRN (Reason: Osteoarthritis) Qty: 100 5RF Rx Instructions: apply to affected area, wash hands after application. Stand Alone Forms: ED Work / School Excuse Primary Care Provider: Sonya Sethi Referrals: Sonya Sethi MD [Primary Care Provider] - Activity Restrictions/Additional Instructions: Ice 20 minutes on, 20 minutes off. Follow-up with PCP in the next 3 to 5 days no improvement. Work note given. Continue anti-inflammatories and ice. Use the Valentino wrap and a postop shoe only when you are ambulating. Disposition Disposition: Home, Self Care Discharge Date/Time: 11/12/22 12:57
== END 2022-11-12 12:57 | disposition home or self-care (01) ==
PROVIDERS: Emergency Provider Emergency Medicine; PCP Internal Medicine; Visit Provider Emergency Medicine
DX: S93.602A Unspecified sprain of left foot, initial encounter (principal); M79.672 Pain in left foot; I10 Essential (primary) hypertension; E78.00 Pure hypercholesterolemia, unspecified; K21.9 Gastro-esophageal reflux disease without esophagitis; G43.909 Migraine, unspecified, not intractable, without status migrainosus; Z90.49 Acquired absence of other specified parts of digestive tract; Z90.710 Acquired absence of both cervix and uterus; Z96.659 Presence of unspecified artificial knee joint; W18.39XA Other fall on same level, initial encounter
CPT/HCPCS: 73630; 99282

== ENCOUNTER 2023-06-04 15:49 | Emergency (ER) | payer MEDICARE, OTHER, SELFPAY ==
[2023-06-04 15:50] VITALS: BP 159/83; PULSE 96; RESP 16; TEMP 36.5; O2SAT 98; BMI 33.2
--- NOTE | 2023-06-04 16:38 | CT_ITS ---
STUDY: CT ABDOMEN AND PELVIS WITH CONTRAST REASON FOR EXAM: Female, 83 years old. abdominal pain RADIATION DOSAGE (If Supplied By Facility): CTDIvol = ( 12.72 ) mGy, DLP = ( 739.85 ) mGycm TECHNIQUE: Transaxial images were obtained from the dome of the diaphragm to the symphysis pubis without oral contrast. IV 100mL Isovue-300 was administered. Sagittal and coronal images were reconstructed. Individualized dose optimization techniques were used for this CT. COMPARISON: None. FINDINGS: Calcified granuloma left lung base. Calcific coronary artery disease and aortic valve disease. Normal liver. Gallbladder surgically absent. Normal spleen. Normal pancreas. Normal bilateral adrenal glands. Normal right kidney. Normal left kidney. Normal visualized stomach. Air-fluid levels in the small bowel. Colonic diverticulosis. Increased stool in the colon. Appendix not identified. Calcified plaque along the aorta and its branches. Normal inferior vena cava. Normal retroperitoneum. Normal urinary bladder. Fat-containing umbilical hernia. Grade [address] L4-5. [address]/Abdomen/Pelvis W IV Cont ONLY IMPRESSION: Mild ileus. Increased stool. Electronically Signed: Petey Kunz MD at 18:23 EST ,
[2023-06-04 17:09] LABS: Color, Urine Yellow (Yellow); Glucose, Dipstick Normal (Normal); Ketone-Dipstick Negative (Negative); Leukocyte Esterase-Dipstick 500 /ul (Negative); Mucous, Urine 0 SEEN /hpf (<or=2+); Nitrite-Dipstick Negative (Negative); Occult Blood-Urine 10 /ul (Negative); Protein-Dipstick 15 mg/dl (Negative); Red Blood Cells-Urine 0 SEEN /hpf (0-5); Urine Bilirubin Dipstick Negative (Negative); Urine Clarity Sl. Cloudy (Clear); Urine Urobilinogen Normal (Normal)
[2023-06-04 17:11] LABS: Absolute Neutrophil Count 6.1 X10^3/uL (2.0-7.7); Basophil# 0.05 X10^3/uL; Basophil% 0.5 % (0-1); Eosinophil# 0.28 X10^3/uL; Hematocrit 39.1 % (37-47); Hemoglobin 13.1 g/dL (12.0-15.0); Lymphocyte % 23.5 % (19-41); Mean Corp Hgb Conc 33.5 g/dL (32-36); Mean Corpuscular Hgb 30.5 pg (27.0-32.0); Mean Corpuscular Volume 90.9 fL (81-99); Mean Platelet Vol. 9.5 fl (6.2-12.0); Monocyte# 0.74 X10^3/uL; Monocyte% 7.9 % (0-10); NRBC Flagged by Analyzer 0 % (0-5); Neutrophil # 6.05 X10^3/uL (2.7-7.7); Neutrophil % 64.8 % (47-70); Platelet Count 249 K/mm3 (150-450); RBC Distribution Width CV 12.5 % (11.6-14.6); RBC Distribution Width SD 41.3 fl (35.1-43.9); White Blood Count 9.4 K/mm3 (4.4-11.0)
[2023-06-04 17:16] LABS: Bacteria RARE /hpf (None Seen); Squamous Epithelial Cells - UA 0-5 SEEN /hpf (5-10); White Blood Cells >100 SEEN /hpf (0-5)
[2023-06-04 17:39] LABS: ALB/GLOB Ratio 0.9 RATIO (0.9-2.4); AST(SGOT) 22 U/L (15-37); Alanine Aminotransfer ALT/SGPT 32 U/L (13-56); Albumin, Serum 3.6 g/dL (3.2-5.0); Alkaline Phosphatase 87 U/L (45-117); Anion Gap 6 (5-15); BUN 24 mg/dL (7-18); BUN/Creat Ratio 20.5 RATIO (10-20); Calcium,Total 9.3 mg/dL (8.5-10.1); Chloride 108 mmol/L (98-107); Creatinine, Serum 1.17 mg/dL (0.55-1.02); EST Glomerular Filtration Rate 47 mL/min (>60); Est Glom Filt Rate - Afr Amer 57 mL/min (>60); Estimated Creatinine Clearance 33.45 ml/min; Globulin 4.2 g/dL (2.2-4.2); Glucose 98 mg/dL (74-106); Lipase 30 U/L (13-75); Potassium 3.7 mmol/L (3.5-5.1); Protein, Total 7.8 g/dL (6.4-8.2); Sodium Level 138 mmol/L (136-145)
--- NOTE | 2023-06-04 17:55 | ED.VIS.GI ---
HPI HPI - GI History of Present Illness Chief Complaint: Abd Pain Narrative Narrative: 83-year-old female presenting with left lower quadrant abdominal pain. She states at times she has pain in the left back as well. Denies history of kidney stones or diverticulitis. Patient states her pain has been there constantly in the left lower quadrant for 2 weeks. It comes and goes in the left flank. Denies diarrhea or constipation. Has not had any fevers and may have had some chills. No urinary or vaginal complaints. She is eating and drinking normally. She is not vomiting. Patient states she was seen by her PCP today and was sent to the ER for evaluation. Urinalysis apparently was negative in the office. [facility] Medical History Chronic GERD CPAP (continuous positive airway pressure) dependence Degenerative disc disease GERD (gastroesophageal reflux disease) Hearing problem Heart murmur High cholesterol History of echocardiogram History of IBS Hypertension IBS (irritable bowel syndrome) Migraines MRSA infection Non-smoker Osteoarthritis Recurrent infections Sleep apnea UTI (urinary tract infection) Wears glasses Wears hearing aid Home Medications cholecalciferol (vitamin D3) 125 mcg (5,000 unit) capsule 125 mcg PO DAILY 08/28/22 [History Last Taken Unknown] coq10 1 tab PO 1XD 08/28/22 [History Last Taken Unknown] fremanezumab-vfrm 225 mg/1.5 mL subcutaneous auto-injector (Ajovy) 225 mg subcut QMONTH 08/28/22 [History Last Taken Unknown] ketonazole shampoo 1 applic topical 1XD PRN dry skin 08/28/22 [History Last Taken Unknown] magnesium 250 mg tablet See Rx Instructions PO DAILY 08/28/22 [History Last Taken Unknown] methocarbamol 750 mg tablet 750 mg PO .COMPLEX PRN pain 08/28/22 [History Last Taken Unknown] riboflavin (vitamin B2) 100 mg tablet 100 mg PO BID 08/28/22 [History Last Taken Unknown] rizatriptan 10 mg tablet See Rx Instructions PO .COMPLEX 08/28/22 [History Last Taken Unknown] triamcinolone acetonide 0.1 % topical cream 1 applic topical BID #30 grams 09/11/22 [Rx Last Taken Unknown] diclofenac sodium 1 % topical gel 2 g topical BID PRN Osteoarthritis #100 grams 09/30/22 [Rx Last Taken Unknown] diphenoxylate-atropine 2.5 mg-0.025 mg tablet 1 tab PO BID PRN diarrhea #30 tabs 05/19/23 [Rx Last Taken Unknown] meclizine 12.5 mg tablet 12.5 mg PO BID-QID PRN motion sickness #30 tabs 05/19/23 [Rx Last Taken Unknown] omeprazole 20 mg capsule,delayed release 40 mg (2 x 20 mg) PO DAILY #90 caps 05/19/23 [Rx Last Taken Unknown] spironolactone 25 mg tablet 25 mg PO DAILY #90 tabs 05/19/23 [Rx Last Taken Unknown] sucralfate 1 gram tablet 1 g PO BID #180 tabs 05/19/23 [Rx Last Taken Unknown] colestipol 1 gram tablet 1 g PO TID #270 tabs 05/26/23 [Rx Last Taken Unknown] Allergy/AdvReac Type Severity Reaction Status Date / Time albuterol Allergy Unknown Verified 06/04/23 15:50 amoxicillin Allergy Hives Verified 06/04/23 15:50 Penicillins Allergy Hives Verified 06/04/23 15:50 sulfamethoxazole Allergy Hives Verified 06/04/23 15:50 [From Bactrim] trimethoprim [From Bactrim] Allergy Hives Verified 06/04/23 15:50 Family History Mother Hypertension Arthritis Bowel disease Myocardial infarction, Onset Age: 70 Age related osteoporosis Father Diabetes Myocardial infarction, Onset Age: 50 Surgical History Bunion (~1988) FH: cholecystectomy H/O: hysterectomy (~1980) History of bladder surgery (~2003) History of knee replacement (~2013) Social History adopted: No household members: spouse housing: house number of children: 6 current occupational status: employed current occupation: [employer] current occupational exposures/hazards: No pets and animals: Yes pets and animals: cat(s) leisure activities: exercise, reading and other history of recent travel: No sexually active: No Smoking Status: Never smoker alcohol intake: never substance use type: does not use well-balanced diet: daily or most days caffeine: No eating out: rarely or never during the past year weight has: increased > 10 lbs what type of physical activity do you participate in: walking and aerobics brenda/jew: Worship seatbelt use: always do you feel safe at home: Yes ROS ROS ED Constitutional Constitutional ED: Reports chills; Denies fever(s) or sweats Eyes Eyes: Denies blurry vision or change in vision ENT ENT ED: Denies ear pain or sore throat Cardiovascular Cardiovascular: Denies chest pain, palpitations or racing heartbeat Respiratory/Chest Respiratory/Chest: Denies cough, dyspnea or sputum Gastrointestinal Gastrointestinal: Reports abdominal pain; Denies constipation, diarrhea, nausea or vomiting Genitourinary Genitourinary ED: Denies dysuria, hematuria or urinary frequency Musculoskeletal Musculoskeletal: Reports back pain; Denies arthralgias, myalgias or neck pain Integumentary Denies abscess, Abrasions or rash Neurologic Neurologic: Denies headache(s), paresthesias or weakness Psychiatric Psychiatric: Denies anxiety, depression, suicidal ideation or suicidal thoughts Endocrine Endocrinology: Denies polydipsia or polyuria EXAM Physical Exam Const Vital Signs: 06/04/23 15:50 06/04/23 20:00 06/04/23 21:06 Temperature 97.7 F L Temperature Source Temporal Pulse Rate 96 81 89 Respiratory Rate 16 16 14 Blood Pressure 159/83 H 186/105 H 159/91 H Blood Pressure Mean 108 132 113 Pulse Ox 98 98 99 Oxygen Delivery Method Room Air Positive well nourished General Appearance ED: NAD HEENT Reports moist mucous membranes normocephalic and atraumatic Eyes PERRL and EOMs intact bilaterally Neck no lymphadenopathy Resp normal respiratory effort Cardio regular rate and regular rhythm GI Palpation: tender LLQ Back/Spine no CVA tenderness Neuro Sensorium / Orientation: alert Motor Exam: strength 5/5 throughout Psych mental status grossly normal and thought process normal Skin no wounds MDM MDM MDM Narrative Medical decision making narrative: Patient presenting with left lower quadrant abdominal pain and left flank pain. Patient presenting with right flank pain. Differential includes colitis, diverticulitis, gastritis, pancreatitis, constipation, UTI, pyelonephritis, renal calculi, ureteral calculi, bowel obstruction, malignancy, dehydration, electrolyte abnormalities.. Patient denies analgesia or antiemetics. CBC was obtained to assess white blood cell count, hemoglobin, platelets. CMP to assess liver function, renal function, electrolytes, glucose. Lipase to assess for pancreatitis. Urinalysis to assess for UTI. Will obtain CT of the abdomen/pelvis with IV contrast. CBC shows normal white blood cell count 9.4. Hemoglobin 13.1. Platelets 249. Creatinine slightly elevated today at 1.17. Patient will given IV fluids. Electrolytes are normal. LFTs are normal. Lipase negative. Urinalysis shows 500 leukocyte esterase, 0-5 squamous epithelial cells and greater than 100 WBCs. Patient has not having any culture. CT of the abdomen pelvis with IV contrast shows no evidence of diverticulitis or other acute finding there is increased stool and an ileus. Patient counseled on findings. I feel she stable for discharge. Return precautions discussed. Impression: 1. Ileus 2. Constipation 3. Abdominal pain Lab Data Attestation: I reviewed the patient's lab results. Labs: Laboratory Results - last 24 hr 06/04/23 06/04/23 16:50 17:00 WBC 9.4 RBC 4.30 Hgb 13.1 Hct 39.1 MCV 90.9 MCH 30.5 MCHC 33.5 RDW Std Deviation 41.3 RDW Coeff of Alea 12.5 Plt Count 249 MPV 9.5 Immature Gran % (Auto) 0.300 Neut % (Auto) 64.8 Lymph % (Auto) 23.5 Grady % (Auto) 7.9 Eos % (Auto) 3.0 Baso % (Auto) 0.5 Absolute Neuts (auto) 6.1 Absolute Lymphs (auto) 2.20 Nucleated RBC % 0 Sodium 138 Potassium 3.7 Chloride 108 H Carbon Dioxide 24.0 Anion Gap 6 BUN 24 H Creatinine 1.17 H Estim Creat Clear Calc 33.45 Est GFR (MDRD) Af Amer 57 L Est GFR (MDRD) Non-Af 47 L BUN/Creatinine Ratio 20.5 H Glucose 98 Calcium 9.3 Total Bilirubin 0.30 AST 22 ALT 32 Alkaline Phosphatase 87 Total Protein 7.8 Albumin 3.6 Globulin 4.2 Albumin/Globulin Ratio 0.9 Lipase 30 Urine Color Yellow Urine Clarity Sl. Cloudy Urine pH 6.0 Ur Specific [place] 1.010 Urine Protein 15 H Urine Glucose (UA) Normal Urine Ketones Negative Urine Occult Blood 10 H Urine Nitrite Negative Urine Bilirubin Negative Urine Urobilinogen Normal Ur Leukocyte Esterase 500 H Urine RBC 0 SEEN Urine WBC >100 SEEN Ur Squamous Epith Cells 0-5 SEEN Urine Bacteria RARE Urine Mucus 0 SEEN Radiography Diagnostic Testing: Clinical Impression(s) from Imaging Studies Abdomen/Pelvis CT 06/04/23 16:38 IMPRESSION: Mild ileus. Increased stool. Electronically Signed: Petey Kunz MD at 18:23 EST Reading Location ID and State: [facility] / [place] Tel , Service support , Discharge Plan Triage Chief Complaint: Abd Pain ED Provider: Xavier Cherry Dx/Rx/DC Orders Instructions: ED Abdominal Pain Unkn Cause Fem, ED Constipation (Adult) Prescriptions: No Action triamcinolone acetonide 0.1 % cream 1 applic topical BID Qty: 30 1RF Ajovy Autoinjector 225 mg/1.5 mL auto-injector 225 mg subcut QMONTH methocarbamol 750 mg tablet 750 mg PO .COMPLEX PRN (Reason: pain) Rx Instructions: 1 - 2 tabs orally daily PRN; rizatriptan 10 mg tablet See Rx Instructions PO .COMPLEX Rx Instructions: take 1 tab at onset of headache; if no relief may repeat 1 tab after at least 2 hrs; max = 3 tabs/24 hr PO ketonazole shampoo 1 applic topical 1XD PRN (Reason: dry skin) Rx Instructions: 2% magnesium 250 mg tablet See Rx Instructions PO DAILY Rx Instructions: 2 tabs =500mg orally daily; coq10 1 tab PO 1XD Rx Instructions: 300mg daily riboflavin (vitamin B2) 100 mg tablet 100 mg PO BID cholecalciferol (vitamin D3) 125 mcg (5,000 unit) capsule 125 mcg PO DAILY diclofenac sodium 1 % gel 2 g topical BID PRN (Reason: Osteoarthritis) Qty: 100 5RF Rx Instructions: apply to affected area, wash hands after application. meclizine 12.5 mg tablet 12.5 mg PO BID-QID PRN (Reason: motion sickness) Qty: 30 1RF omeprazole 20 mg capsule,delayed release(DR/EC) 40 mg PO DAILY Qty: 90 3RF spironolactone 25 mg tablet 25 mg PO DAILY Qty: 90 3RF diphenoxylate-atropine 2.5-0.025 mg tablet 1 tab PO BID PRN (Reason: diarrhea) Qty: 30 1RF sucralfate 1 gram tablet 1 g PO BID Qty: 180 3RF colestipol 1 gram tablet 1 g PO TID Qty: 270 3RF Primary Care Provider: Sonya Sethi Referrals: Sonya Sethi MD [Primary Care Provider] - Disposition Disposition: Home, Self Care Discharge Date/Time: 06/04/23 21:07
[2023-06-04 20:00] VITALS: BP 186/105; PULSE 81; RESP 16; O2SAT 98
[2023-06-04 21:06] VITALS: BP 159/91; PULSE 89; RESP 14; O2SAT 99
== END 2023-06-04 21:07 | disposition home or self-care (01) ==
PROVIDERS: Emergency Provider Student in an Organized Health Care Education/Training Program; PCP Internal Medicine; Visit Provider Student in an Organized Health Care Education/Training Program
DX: R10.32 Left lower quadrant pain (principal); K56.7 Ileus, unspecified; E78.00 Pure hypercholesterolemia, unspecified; I10 Essential (primary) hypertension; Z79.899 Other long term (current) drug therapy; K21.9 Gastro-esophageal reflux disease without esophagitis; Z90.49 Acquired absence of other specified parts of digestive tract; Z90.710 Acquired absence of both cervix and uterus; Z96.659 Presence of unspecified artificial knee joint; K59.00 Constipation, unspecified
CPT/HCPCS: 74177; 80053; 81001; 83690; 85025; 87086; 99283; Q9967; A4216

== ENCOUNTER → 2023-07-01 | Outpatient (CLI) | payer MEDICARE, OTHER, SELFPAY ==
--- NOTE | 2023-07-01 13:34 | EKG12_ITS ---
Test Reason : DYSPNEA Blood Pressure : / mmHG Vent. Rate : 089 BPM Atrial Rate : 089 BPM P-R Int : 162 ms QRS Dur : 086 ms QT Int : 374 ms P-R-T Axes : 062 034 063 degrees QTc Int : 455 ms Normal sinus rhythm Normal ECG Confirmed by Randy Hussein ([id number]), business editor MIRIAM MEJIA ([id number]) on 07/02/2023 9:21:54 AM Referred By: Sonya Sethi Confirmed By:Randy Hussein
[2023-07-01 15:42] LABS: Absolute Lymphocyte Count 2.47 X10^3/uL (0.83-4.51); Absolute Neutrophil Count 5.5 X10^3/uL (2.0-7.7); Basophil# 0.05 X10^3/uL; Basophil% 0.5 % (0-1); Eosinophil# 0.28 X10^3/uL; Eosinophils% 3.1 % (0-5); Hematocrit 39.1 % (37-47); Hemoglobin 12.8 g/dL (12.0-15.0); Lymphocyte # 2.47 X10^3/ul (0.83-4.51); Lymphocyte % 27.1 % (19-41); Mean Corp Hgb Conc 32.7 g/dL (32-36); Mean Corpuscular Hgb 29.8 pg (27.0-32.0); Mean Corpuscular Volume 91.1 fL (81-99); Monocyte# 0.83 X10^3/uL; Monocyte% 9.1 % (0-10); NRBC Flagged by Analyzer 0 % (0-5); Neutrophil # 5.45 X10^3/uL (2.7-7.7); Platelet Count 263 K/mm3 (150-450); RBC Distribution Width SD 43.2 fl (35.1-43.9); Red Blood Count 4.29 M/mm3 (4.2-5.4); White Blood Count 9.1 K/mm3 (4.4-11.0)
[2023-07-01 15:55] LABS: Erythrocyte Sedimentation Rate 7 mm/hr (0-30)
[2023-07-01 16:36] LABS: Vitamin B12 611 pg/mL (211-911)
[2023-07-01 16:43] LABS: ALB/GLOB Ratio 0.9 RATIO (0.9-2.4); AST(SGOT) 28 U/L (15-37); Alanine Aminotransfer ALT/SGPT 31 U/L (13-56); Albumin, Serum 3.6 g/dL (3.2-5.0); Alkaline Phosphatase 96 U/L (45-117); Anion Gap 9 (5-15); BUN 22 mg/dL (7-18); Calcium,Total 9.1 mg/dL (8.5-10.1); Chloride 105 mmol/L (98-107); EST Glomerular Filtration Rate 57 mL/min (>60); Est Glom Filt Rate - Afr Amer 68 mL/min (>60); Free T3 3.2 pg/mL (2.18-3.98); Globulin 3.8 g/dL (2.2-4.2); Glucose 97 mg/dL (74-106); Potassium 3.5 mmol/L (3.5-5.1); Protein, Total 7.4 g/dL (6.4-8.2); Sodium Level 142 mmol/L (136-145); T4 Free Direct 0.95 ng/dL (0.76-1.46); Thyroid Stim Hormone (TSH) 1.28 uIU/mL (0.358-3.74)
--- OUTSIDE RECORDS SUMMARY | 2023-07-01 18:34 | XMS RPT_ITS | CCD ---
Author Name Unknown Address [address] [place] [address] Organization [facility] Care Team Providers Care Fig Washer Name Role Phone ADITYA PORTILLO Attending Unavailable ADITYA PORTILLO Primary Care Unavailable ADITYA PORTILLO Admitting Unavailable Adarsh Conrad MD Unavailable Kenney Atkins MD Primary Care Provider Kenney Atkins MD Primary Care Provider MORRO OTTO Admitting Unavailable MORRO OTTO Attending Unavailable MILLY KENNEY Primary Care Unavailable MORRO OTTO Admitting Unavailable MORRO OTTO Attending Unavailable MILLY, KENNEY Primary Care Unavailable Kenney Atkins MD Primary Care Provider Kenney Atkins MD Primary Care Provider Santa Sethi MD Primary Care Provider Kenney Atkins MD Primary Care Provider KENNEY ATKINS Primary Care Unavailable TERRANCE MCCAIN Attending Unavailable KENNEY ATKINS Primary Care Unavailable MILLY KENNEY Primary Care Unavailable KENNEY ATKINS Attending Unavailable JENNIFER LEDESMA Referring Unavailable SANTA SETHI Primary Care Unavailable JENNIFER LEDESMA Attending Unavailable SANTA SETHI Primary Care Unavailable SANTA SETHI Primary Care Unavailable KENNEY ATKINS Primary Care Unavailable Allergies Allergy Classification Reported Allergen(s) Allergy Type Date of Onset Reaction(s) Facility (20 sources) Amoxicillin; Translations: [AMOXICILLIN] Drug Allergy 05-13-19 04 Hives [facility] [place] [facility] Work Phone: (2 sources) Hmg-Coa Reductase Inhibitors (Statins) drug allergy 06-12-[address] [facility] Work Phone: (2 sources) Penicillins (Antibiotic) drug allergy 06-12-[address] [facility] Work Phone: (2 sources) Sulfamethoxazole / Trimethoprim Drug Allergy 06-12-19 22 headaches [facility] Work Phone: (20 sources) Albuterol; Translations: [ALBUTEROL] Drug Allergy 04-04-20 11 Intolerance [facility] Work Phone: (20 sources) Amitriptyline; Translations: [AMITRIPTYLINE] Drug Allergy 02-24-20 15 Mental Status Change [facility] Work Phone: (20 sources) Angiotensin Converting Enzyme (Jazmin) Inhibitors; Translations: [JAZMIN INHIBITORS] allergy to substance 05-13-19 04 Other: See Comments [facility] Work Phone: (20 sources) Caffeine; Translations: [CAFFEINE] Drug Allergy 05-13-19 04 Mental Status Change [facility] Work Phone: (20 sources) Codeine; Translations: [CODEINE] Drug Allergy 07-18-19 22 GI Upset, Other: See Comments [facility] Work Phone: (20 sources) Doxycycline; Translations: [DOXYCYCLINE HYCLATE] Drug Allergy 08-10-[address] [facility] Work Phone: (1 source) fluticasone / salmeterol; Translations: [ADVAIR DISKUS] Drug Allergy 07-18-[address] [facility] Work Phone: (1 source) levoFLOXacin; Translations: [LEVAQUIN] Drug Allergy 07-18-19 22 dizziness at 500mg dose [facility] Work Phone: (1 source) traMADol Drug Allergy 07-18-19 22 headache [facility] Work Phone: (1 source) PNEUMOVAX; Translations: [PNEUMOVAX] food allergy 07-18-19 22 arm swelled up for about 8 months [facility] Work Phone: (20 sources) HYDANTOINS; Translations: [HYDANTOINS] drug allergy 05-13-19 04 Other: See Comments [facility] Work Phone: (20 sources) fluticasone / salmeterol; Translations: [FLUTICASONE PROPION-SALMETEROL] Drug Allergy 04-04-20 11 Intolerance [facility] (5 sources) HMG-CoA reductase inhibitor; Translations: [VDLVBZJ-UFL-ASI REDUCTASE INHIBITORS] Propensity to adverse reactions to drug 03-22-20 15 Other: See Comments [facility] (20 sources) levoFLOXacin; Translations: [LEVOFLOXACIN] Drug Allergy 10-14-19 19 Intolerance [facility] Work Phone: (20 sources) Streptococcus pneumoniae type 1 capsular polysaccharide antigen / Streptococcus pneumoniae type 10A capsular polysaccharide antigen / Streptococcus pneumoniae type 11A capsular polysaccharide antigen / Streptococcus pneumoniae type 12F capsular polysaccharide antigen / Streptococcus pneumoniae type 14 capsular polysaccharide antigen / Streptococcus pneumoniae type 15B capsular polysaccharide antigen / Streptococcus pneumoniae type 17F capsular polysaccharide antigen / Streptococcus pneumoniae type 18C capsular polysaccharide antigen / Streptococcus pneumoniae type 19A capsular polysaccharide antigen / Streptococcus pneumoniae type 19F capsular polysaccharide antigen / Streptococcus pneumoniae type 2 capsular polysaccharide antigen / Streptococcus pneumoniae type 20 capsular polysaccharide antigen / Streptococcus pneumoniae type 22F capsular polysaccharide antigen / Streptococcus pneumoniae type 23F capsular polysaccharide antigen / Streptococcus pneumoniae type 3 capsular polysaccharide antigen / Streptococcus pneumoniae type 33F capsular polysaccharide antigen / Streptococcus pneumoniae type 4 capsular polysaccharide antigen / Streptococcus pneumoniae type 5 capsular polysaccharide antigen / Streptococcus pneumoniae type 6B capsular polysaccharide antigen / Streptococcus pneumoniae type 7F capsular polysaccharide antigen / Streptococcus pneumoniae type 8 capsular polysaccharide antigen / Streptococcus pneumoniae type 9N capsular polysaccharide antigen / Streptococcus pneumoniae type 9V capsular polysaccharide antigen; Translations: [PNEUMOCOCCAL 23-SANTOSH PS VACCINE] Drug Allergy 08-10-19 06 Other: See Comments [facility] (20 sources) Sulfamethoxazole / Trimethoprim; Translations: [SULFAMETHOXAZOLE-T RIMETHOPRIM] Drug Allergy 12-11-19 11 Rash, Other: See Comments [facility] Work Phone: (20 sources) traMADol; Translations: [TRAMADOL HCL] Drug Allergy 02-22-20 14 Other: See Comments [facility] Work Phone: (20 sources) HMG-CoA reductase inhibitor Propensity to adverse reactions to drug 03-22-20 15 Other: See Comments [facility] Medications Current Medications Medication Drug Class(es) Dates Sig (Normalized) Sig (Original) cefdinir 300 mg oral capsule (5 sources) Cephalosporin Antibacterial Start: 01-14-2023 End: 01-21-2023 take 1 capsule by mouth twice daily cefdinir (OMNICEF) 300 mg capsule Take 1 capsule by mouth twice daily for 7 days. 14 capsule 0 01/14/2023 01/21/2023 Active Completed/Discontinued Medications Medication Drug Class(es) Dates Sig (Normalized) Sig (Original) Acetaminophen (20 sources) acetaminophen (T YLENOL ORAL) Take by mouth as needed. 0 Active Problems Active Problems Problem Classification Problem Date Documented Da te Episodic/Chronic Disorders of lipid metabolism (20 sources) Mixed hyperlipidemia; Translations: [Mixed hyperlipidemia] Onset: 6 03-22-2015 Chronic Esophageal disorders (20 sources) Gastroesophageal reflux disease; Translations: [Gastro-esophageal reflux disease without esophagitis] Onset: 6 11-11-2005 Chronic Essential hypertension (20 sources) Hypertensive disorder; Translations: [Essential (primary) hypertension] Onset: 0 10-26-2009 Chronic Fluid and electrolyte disorders (1 source) Hypokalemia; Translations: [Hypokalemia] Episodic Genitourinary symptoms and ill-defined conditions (3 sources) Dysuria; Translations: [Dysuria] Episodic Headache; including migraine (20 sources) Migraine without aura; Translations: [Migraine without aura, not intractable, without status migrainosus] Onset: 6 05-11-2015 Chronic Immunizations and screening for infectious disease (1 source) Needs influenza immunization; Translations: [Encounter for immunization] Episodic Intestinal infection (1 source) Infection caused by Helicobacter pylori; Translations: [Other specified bacterial intestinal infections] Episodic Malaise and fatigue (4 sources) Weakness; Translations: [Fatigue] Onset: 0 Episodic Menopausal disorders (20 sources) Atrophic vaginitis; Translations: [Postmenopausal atrophic vaginitis] Onset: 7 08-09-2016 Chronic Noninfectious gastroenteritis (2 sources) Chronic diarrhea; Translations: [Noninfective gastroenteritis and colitis, unspecified] Episodic Nonspecific chest pain (1 source) Other chest pain; Translations: [Other chest pain] Onset: 0 Episodic Nutritional deficiencies (20 sources) Vitamin D deficiency; Translations: [Vitamin D deficiency, unspecified] Onset: 2 04-24-2012 Chronic Nutritional deficiencies (1 source) Cobalamin deficiency; Translations: [Deficiency of other specified B group vitamins] Episodic Osteoarthritis (20 sources) Degenerative joint disease involving multiple joints; Translations: [Polyosteoarthritis, unspecified] Onset: 6 09-24-2015 Chronic Osteoporosis (20 sources) Osteoporosis; Translations: [Age-related osteoporosis without current pathological fracture] Onset: 6 04-23-2021 Chronic Other connective tissue disease (2 sources) Trigger finger, right middle finger; Translations: [Trigger finger (acquired)] Onset: 2 06-12-2021 Episodic Other connective tissue disease (2 sources) Palmar fascial fibromatosis [Dupuytren]; Translations: [Contracture of palmar fascia] Onset: 2 06-12-2021 Episodic Other female genital disorders (1 source) Mass of vulva; Translations: [Other specified noninflammatory disorders of vulva and perineum] Episodic Other gastrointestinal disorders (20 sources) Irritable bowel syndrome; Translations: [Irritable bowel syndrome without diarrhea] Onset: 6 05-11-2015 Chronic Other gastrointestinal disorders (1 source) Functional disorder of intestine; Translations: [Functional intestinal disorder, unspecified] Episodic Other infections; including parasitic (1 source) Disorder due to infection; Translations: [Unspecified infectious disease] Episodic Other lower respiratory disease (1 source) Wheezing; Translations: [Wheezing] Episodic Other screening for suspected conditions (not mental disorders or infectious disease) (1 source) Patient encounter status; Translations: [Encounter for screening for diabetes mellitus] Episodic Other upper respiratory infections (2 sources) Bacterial sinusitis; Translations: [Chronic sinusitis, unspecified] Chronic Other upper respiratory infections (3 sources) Acute maxillary sinusitis; Translations: [Acute maxillary sinusitis, unspecified] Episodic Residual codes; unclassified (20 sources) Obstructive sleep apnea syndrome; Translations: [Obstructive sleep apnea (adult) (pediatric)] Onset: 6 05-11-2015 Chronic Residual codes; unclassified (1 source) Procedure not done; Translations: [Procedure and treatment not carried out, unspecified reason] 11-12-2022 Episodic Spondylosis; intervertebral disc disorders; other back problems (5 sources) Cervical spondylosis without myelopathy; Translations: [Spondylosis without myelopathy or radiculopathy, cervical region] Onset: 2 Chronic Urinary tract infections (4 sources) Recurrent urinary tract infection; Translations: [Urinary tract infection, site not specified] Onset: 4 Episodic Viral infection (1 source) Viral disease; Translations: [Viral infection, unspecified] Episodic Past or Other Problems Problem Classification Problem Date Documented Da te Episodic/Chronic Other circulatory disease (20 sources) Choking sensation; Translations: [Other specified symptoms and signs involving the circulatory and respiratory systems] Onset: 03-16-2019 03-16-2019 Episodic Spondylosis; intervertebral disc disorders; other back problems (20 sources) Lumbar radiculopathy; Translations: [Radiculopathy, lumbar region] Onset: 12-07-2013 12-07-2013 Episodic Unclassified (2 sources) Problem Results Test Name Value Interpretation Reference Range Facil ity Vital Signs Date Time Vital Sign Value Performing Clinician Facility 01-14-2023 09:31-0400 Body temperature 97.81 [degF] Lyly Calvillo PA-C Work Phone: [facility] 01-14-2023 09:31-0400 Body weight 73.48 kg Lyly Calvillo PA-C Work Phone: [facility] 01-14-2023 09:31-0400 Diastolic blood pressure 74 mm[Hg] Lyly NAIR-Renaldo Work Phone: [facility] 01-14-2023 09:31-0400 Heart rate 92 /min Lyly Athy PA-C Work Phone: [facility] 01-14-2023 09:31-0400 Respiratory rate 16 /min Lyly Athy PA-C Work Phone: [facility] 01-14-2023 09:31-0400 SaO2% (BldA) [Mass fraction] 99 % Lyly Athy PA-C Work Phone: [facility] 01-14-2023 09:31-0400 Systolic blood pressure 128 mm[Hg] Lyly Athy PA-C Work Phone: [facility] 01-08-2023 13:44-0400 Body temperature 97.7 [degF] Petey Campos MD Work Phone: [facility] 01-08-2023 13:44-0400 Body weight 73.94 kg Petey Campos MD Work Phone: [facility] 01-08-2023 13:44-0400 Diastolic blood pressure 80 mm[Hg] Petey Campos MD Work Phone: [facility] 01-08-2023 13:44-0400 Heart rate 88 /min Petey Campos MD Work Phone: [facility] 01-08-2023 13:44-0400 Respiratory rate 16 /min Petey Campos MD Work Phone: [facility] 01-08-2023 13:44-0400 SaO2% (BldA) [Mass fraction] 99 % Petey Campos MD Work Phone: [facility] 01-08-2023 13:44-0400 Systolic blood pressure 124 mm[Hg] Petey Campos MD Work Phone: [facility] 11-12-2022 11:06-0400 Body temperature 97 [degF] Altaf Katz APRN.S[employer] MACHINE [employer] Work Phone: [facility] 11-12-2022 11:06-0400 Body weight 70.31 kg Altaf Katz APRN.[employer]INE [employer] Work Phone: [facility] 11-12-2022 11:06-0400 Diastolic blood pressure 80 mm[Hg] [facility]TERY[facility].[employer] Work Phone: [facility] 11-12-2022 11:06-0400 Heart rate 92 /min [facility].[employer] Work Phone: [facility] 11-12-2022 11:06-0400 Respiratory rate 16 /min [facility] [employer].[employer] Work Phone: [facility] 11-12-2022 11:06-0400 SaO2% (BldA) [Mass fraction] 99 % [facility] [employer].[employer] Work Phone: [facility] 11-12-2022 11:06-0400 Systolic blood pressure 122 mm[Hg] [facility].[employer] Work Phone: [facility] 07-23-2022 09:27-0400 Body height 152.4 cm Kenney Atkins MD Work Phone: [facility] 07-23-2022 09:27-0400 Body temperature 97.5 [degF] Kenney Atkins MD Work Phone: [facility] 07-23-2022 09:27-0400 Body weight 70.76 kg Kenney Atkins MD Work Phone: [facility] 07-23-2022 09:27-0400 Diastolic blood pressure 76 mm[Hg] Kenney Atkins MD Work Phone: [facility] 07-23-2022 09:27-0400 Heart rate 91 /min Kenney Atkins MD Work Phone: [facility] 07-23-2022 09:27-0400 Respiratory rate 12 /min Kenney Atkins MD Work Phone: [facility] 07-23-2022 09:27-0400 SaO2% (BldA) [Mass fraction] 96 % Kenney Atkins MD Work Phone: [facility] 07-23-2022 09:27-0400 Systolic blood pressure 126 mm[Hg] Kenney Atkins MD Work Phone: [facility] 06-04-2022 14:22-0500 Diastolic blood pressure 80 mm[Hg] Kenney Atkins MD Work Phone: [facility] 06-04-2022 14:22-0500 Systolic blood pressure 132 mm[Hg] Kenney Atkins MD Work Phone: [facility] 06-04-2022 13:23-0500 Body height 152.4 cm Kenney Atkins MD Work Phone: [facility] 06-04-2022 13:23-0500 Body temperature 97.7 [degF] Kenney Atkins MD Work Phone: [facility] 06-04-2022 13:23-0500 Body weight 69.4 kg Kenney Atkins MD Work Phone: [facility] 06-04-2022 13:23-0500 Heart rate 86 /min Kenney Atkins MD Work Phone: [facility] 06-04-2022 13:23-0500 Respiratory rate 12 /min Kenney Atkins MD Work Phone: [facility] 06-04-2022 13:23-0500 SaO2% (BldA) [Mass fraction] 98 % Kenney Atkins MD Work Phone: [facility] 05-17-2022 13:24-0500 Body weight 68.95 kg Nellie Tustin BATTERYMAN.[employer]ACH[employer] Work Phone: [facility] 05-17-2022 13:24-0500 Diastolic blood pressure 70 mm[Hg] Nellie Pamela BATTERYMAN.[employer] Work Phone: [facility] 05-17-2022 13:24-0500 Systolic blood pressure 132 mm[Hg] Nellie Pamela BATTERYMAN.[employer] Work Phone: [facility] 04-29-2022 09:25-0500 Body temperature 97.59 [degF] Petey Campos MD Work Phone: [facility] 04-29-2022 09:25-0500 Body weight 67.77 kg Petey Campos MD Work Phone: [facility] 04-29-2022 09:25-0500 Diastolic blood pressure 84 mm[Hg] Petey Campos MD Work Phone: [facility] 04-29-2022 09:25-0500 Heart rate 104 /min Petey Campos MD Work Phone: [facility] 04-29-2022 09:25-0500 Respiratory rate 18 /min Petey Campos MD Work Phone: [facility] 04-29-2022 09:25-0500 SaO2% (BldA) [Mass fraction] 98 % Petey Campos MD Work Phone: [facility] 04-29-2022 09:25-0500 Systolic blood pressure 124 mm[Hg] Petey Campos MD Work Phone: [facility] 04-23-2022 09:01-0500 Body temperature 98.6 [degF] Margaux Callow BATTERYMAN.[employer] Work Phone: [facility] 04-23-2022 09:01-0500 Body weight 68.49 kg Margaux Callow BATTERYMAN.[employer] Work Phone: [facility] 04-23-2022 09:01-0500 Diastolic blood pressure 90 mm[Hg] Margaux Callow BATTERYMAN.[employer] Work Phone: [facility] 04-23-2022 09:01-0500 Heart rate 96 /min Margaux Callow BATTERYMAN.[employer] Work Phone: [facility] 04-23-2022 09:01-0500 Respiratory rate 18 /min Margaux Callow BATTERYMAN.[employer] Work Phone: [facility] 04-23-2022 09:01-0500 SaO2% (BldA) [Mass fraction] 100 % Margaux Callow BATTERYMAN.[employer] Work Phone: [facility] 04-23-2022 09:01-0500 Systolic blood pressure 138 mm[Hg] Margaux Callow DEJAN Work Phone: [facility] 02-12-2022 12:12-0400 Body temperature 97.39 [degF] Kenney Atkins MD Work Phone: [facility] 02-12-2022 12:12-0400 Body weight 71.67 kg Kenney Atkins MD Work Phone: [facility] 02-12-2022 12:12-0400 Diastolic blood pressure 80 mm[Hg] Kenney Atkins MD Work Phone: [facility] 02-12-2022 12:12-0400 Heart rate 77 /min Kenney Atkins MD Work Phone: [facility] 02-12-2022 12:12-0400 Respiratory rate 14 /min Kenney Atkins MD Work Phone: [facility] 02-12-2022 12:12-0400 SaO2% (BldA) [Mass fraction] 9 % Kenney Atkins MD Work Phone: [facility] 02-12-2022 12:12-0400 Systolic blood pressure 132 mm[Hg] Kenney Atkins MD Work Phone: [facility] 01-10-2022 15:09-0400 Body height 151.1 cm Teresa Rodriguez PA-C Work Phone: [facility] 01-10-2022 15:09-0400 Body weight 72.08 kg Teresa Rodriguez PA-C Work Phone: [facility] 01-10-2022 15:09-0400 Diastolic blood pressure 67 mm[Hg] Teresa Rodriguez PA-C Work Phone: [facility] 01-10-2022 15:09-0400 Heart rate 80 /min Teresa Rodriguez PA-C Work Phone: [facility] 01-10-2022 15:09-0400 SaO2% (BldA) [Mass fraction] 99 % Teresa Rodriguez PA-C Work Phone: [facility] 01-10-2022 15:09-0400 Systolic blood pressure 153 mm[Hg] Teresa Rodriguez PA-C Work Phone: [facility] 12-14-2021 13:34-0400 Body height 149.9 cm Kenney Atkins MD Work Phone: [facility] 12-14-2021 13:34-0400 Body temperature 97.81 [degF] Kenney Atkins MD Work Phone: [facility] 12-14-2021 13:34-0400 Body weight 69.85 kg Kenney Atkins MD Work Phone: [facility] 12-14-2021 13:34-0400 Diastolic blood pressure 72 mm[Hg] Kenney Atkins MD Work Phone: [facility] 12-14-2021 13:34-0400 Heart rate 68 /min Kenney Atkins MD Work Phone: [facility] 12-14-2021 13:34-0400 Respiratory rate 12 /min Kenney Atkins MD Work Phone: [facility] 12-14-2021 13:34-0400 SaO2% (BldA) [Mass fraction] 98 % Kenney Atkins MD Work Phone: [facility] 12-14-2021 13:34-0400 Systolic blood pressure 138 mm[Hg] Kenney Atkins MD Work Phone: [facility] 11-13-2021 09:45-0400 Body height 149.9 cm Kenney Atkins MD Work Phone: [facility] 11-13-2021 09:45-0400 Body temperature 98.1 [degF] Kenney Atkins MD Work Phone: [facility] 11-13-2021 09:45-0400 Body weight 70.76 kg Kenney Atkins MD Work Phone: [facility] 11-13-2021 09:45-0400 Diastolic blood pressure 72 mm[Hg] Kenney Atkins MD Work Phone: [facility] 11-13-2021 09:45-0400 Heart rate 83 /min Kenney Atkins MD Work Phone: [facility] 11-13-2021 09:45-0400 Respiratory rate 12 /min Kenney Atkins MD Work Phone: [facility] 11-13-2021 09:45-0400 SaO2% (BldA) [Mass fraction] 97 % Kenney Atkins MD Work Phone: [facility] 11-13-2021 09:45-0400 Systolic blood pressure 132 mm[Hg] Kenney Atkins MD Work Phone: [facility] 11-09-2021 09:09-0400 Body height 149.9 cm Jennifer Leedsma PA-C Work Phone: [facility] 11-09-2021 09:09-0400 Body temperature 97.7 [degF] Jennifer Ledesma PA-C Work Phone: [facility] 11-09-2021 09:09-0400 Body weight 71.67 kg Jennifer Ledesma PA-C Work Phone: [facility] 11-09-2021 09:09-0400 Diastolic blood pressure 76 mm[Hg] Jennifer Ledesma PA-C Work Phone: [facility] 11-09-2021 09:09-0400 Heart rate 98 /min Jennifer Ledesma PA-C Work Phone: [facility] 11-09-2021 09:09-0400 Respiratory rate 14 /min Jennifer Ledesma PA-C Work Phone: [facility] 11-09-2021 09:09-0400 SaO2% (BldA) [Mass fraction] 97 % Jennifer Ledesma PA-C Work Phone: [facility] 11-09-2021 09:09-0400 Systolic blood pressure 142 mm[Hg] Jennifer Ledesma PA-C Work Phone: [facility] 11-01-2021 11:19-0400 Body height 152.4 cm Terrance Mccain MD Work Phone: [facility] 11-01-2021 11:19-0400 Body weight 70.53 kg Terrance Mccain MD Work Phone: [facility] 11-01-2021 11:19-0400 Diastolic blood pressure 71 mm[Hg] Terrance Mccain MD Work Phone: [facility] 11-01-2021 11:19-0400 Heart rate 86 /min Terrance Mccain MD Work Phone: [facility] 11-01-2021 11:19-0400 Systolic blood pressure 137 mm[Hg] Terrance Mccain MD Work Phone: [facility] NEGATED: Highlighted [id number] 10:48-0400 Body height 152.4 cm Madison Delgadoaro AT [facility] Work Phone: NEGATED: Highlighted [id number] 10:48-0400 Body height 152 cm Madison Sandyaro AT [facility] Work Phone: NEGATED: Highlighted [id number] 10:48-0400 Body mass index (BMI) [Ratio] 30.18 kg/m2 Madison Sandyaro AT [facility] Work Phone: NEGATED: Highlighted [id number] 10:48-0400 Body weight 69.85 kg Madison Applebobbyaro AT [facility] Work Phone: NEGATED: Highlighted [id number] 10:48-0400 Body weight 70 kg Madison Sandyaro AT [facility] Work Phone: NEGATED: Highlighted [id number] 10:17-0500 Body height 152.4 cm Maureen Dumont RN [facility] Work Phone: NEGATED: Highlighted [id number] 10:17-0500 Body height 152 cm Maureen Dumont RN [facility] Work Phone: NEGATED: Highlighted [id number] 10:17-0500 Body mass index (BMI) [Ratio] 30.18 kg/m2 Maureen Dumont RN [facility] Work Phone: NEGATED: Highlighted [id number] 10:17-0500 Body weight 69.85 kg Maureen Dumont RN [facility] Work Phone: NEGATED: Highlighted [id number] 10:170500 Body weight 70 kg Maureen Dumont RN [facility] Work Phone: Encounters Encounter Date Encounter Type Care Provider Facility Start: 06-25-2023 Telephone encounter Terrance dumont MD Work Phone: Neurology Procedures Date Procedure Procedure Detail Performing Clinician Start: 01-08-2023 Urnls dip stick/tabl et rgnt auto w/o microscopy Lyly FULTONC Work Phone: Start: 04-29-2022 COVID WITH FLUA+B, ROUTINE Petey Campos MD Work Phone: Start: 04-23-2022 COVID WITH FLUA+B, ROUTINE Margaux Aaron APRN.CNP Work Phone: Start: 02-12-2022 INFLUENZA SEASONAL QUADRIVALENT HIGH DOSE AGE 65+ Kenney Atkins MD Work Phone: Start: 11-09-2021 Urnls dip stick/tabl et rgnt auto w/o microscopy Jennifer Ledesma PA-C Work Phone: Start: 07-17-2021 End: 07-17-2021 BP scrn no perf at interval Adarsh Conrad MD Work Phone: Start: 07-17-2021 End: 07-17-2021 Calc BMI abv up hoang f/u Adarsh Conrad MD Work Phone: Start: 07-17-2021 End: 03-22-2022 Current tobacco non-user cad cap copd pv dm Adarsh Conrad MD Work Phone: Start: 07-17-2021 End: 07-17-2021 Docrev cur meds by samantha Conrad MD Work Phone: Start: 07-17-2021 End: 07-17-2021 No doc of pain Adarsh Conrad MD Work Phone: Start: 07-17-2021 End: 07-17-2021 Patient encounter procedure Adarsh Conrad MD Work Phone: Start: 06-12-2021 End: 06-12-2021 BP scrn no perf at interval Adarsh Conrad MD Work Phone: Start: 06-12-2021 End: 06-12-2021 Calc BMI abv up hoang f/u Adarsh Conrad MD Work Phone: Start: 06-12-2021 End: 06-12-2021 Current tobacco non-user cad cap copd pv dm Adarsh Conrad MD Work Phone: Start: 06-12-2021 End: 06-12-2021 Docrev cur meds by samantha Conrad MD Work Phone: Start: 06-12-2021 End: 06-12-2021 Pain doc pos and plan Adarsh Conrad MD Work Phone: Start: 06-12-2021 End: 06-12-2021 Patient encounter procedure Adarsh Conrad MD Work Phone: Start: 03-20-2018 Adult depression screening assessment Terrance Mccain MD Work Phone: NEGATED: Highlighted rowStart: 07-17-2021 End: 07-17-2021 Documentation of current medications Madison Lambert AT NEGATED: Highlighted rowStart: 06-12-2021 End: 06-12-2021 Documentation of current medications Maureen Dumont RN Plan of Treatment Date Care Activity Detail Author Start: 05-14-2025 DIABETES SCREEN DIABETES SCREEN [facility] Start: 05-14-2025 Diabetes Screening Diabetes Screening [facility] Start: 11-29-2023 DIABETES SCREEN DIABETES SCREEN [facility] Start: 04-28-2023 Advance Directive Discussion Advance Directive Discussion [facility] Start: 04-28-2023 Depression Assessment Depression Assessment [facility] Start: 02-12-2023 ANNUAL PCP TEAM CHRONIC DISEASE VISIT ANNUAL PCP TEAM CHRONIC DISEASE VISIT [facility] Start: 12-27-2022 Influenza vaccination [facility] Start: 12-14-2022 ANNUAL PCP TEAM CHRONIC DISEASE VISIT ANNUAL PCP TEAM CHRONIC DISEASE VISIT [facility] Start: 11-13-2022 ANNUAL PCP TEAM CHRONIC DISEASE VISIT ANNUAL PCP TEAM CHRONIC DISEASE VISIT [facility] Start: 07-10-2022 ANNUAL PCP TEAM CHRONIC DISEASE VISIT ANNUAL PCP TEAM CHRONIC DISEASE VISIT [facility] Start: 07-10-2022 BP CONTROLLED (<130/80) BP CONTROLLED (<130/80) [facility] Start: 05-15-2022 End: 07-15-2022 Basic metabolic 2000 panel - Serum or Plasma BASIC METABOLIC PNL Lab Routine Mixed hyperlipidemia Expected: 05/15/2022, Expires: 07/15/2022 [facility] Work Phone: Immunizations Immunization Date Immunization Notes Care Provider Fa cili 02-12-2022 influenza, high-dose , quadrivalent vaccine (FLUZONE HIGH DOSE QUADRIVALENT) Kenney Atkins MD Work Phone: [facility] 02-12-2022 influenza virus vacc ine, unspecified formulation Petey Campos MD Work Phone: [facility] 11-28-2020 zoster vaccine recombinant Terrance Mccain MD Work Phone: [facility] Work Phone: 08-03-2020 zoster vaccine recombinant Terrance Mccain MD Work Phone: [facility] Work Phone: 01-04-2020 influenza, high-dose , quadrivalent vaccine (FLUZONE HIGH DOSE QUADRIVALENT) Terrance Mccain MD Work Phone: [facility] 02-02-2019 influenza, high dose seasonal, preservative-free Terrance Mccain MD Work Phone: [facility] 02-23-2015 influenza, high dose seasonal, preservative-free Terrance Mccain MD Work Phone: [facility] 02-04-2014 influenza, injectabl e, quadrivalent, preservative free Terrance Mccain MD Work Phone: [facility] 03-19-2013 influenza virus vacc ine, unspecified formulation Terrance Mccain MD Work Phone: [facility] 03-03-2012 influenza virus vacc ine, unspecified formulation Terrance Mccain MD Work Phone: [facility] 01-29-2011 influenza virus vacc ine, unspecified formulation Terrance Mccain MD Work Phone: [facility] 02-09-2010 influenza virus vacc ine, unspecified formulation Terrance Mccain MD Work Phone: [facility] Work Phone: 08-10-2007 tetanus and diphther ia toxoids, adsorbed, preservative free, for adult use (2 Lf of tetanus toxoid and 2 Lf of diphtheria toxoid) Terrance Mccain MD Work Phone: [facility] 03-06-2007 influenza virus vacc ine, unspecified formulation Terrance Mccain MD Work Phone: [facility] Work Phone: 03-15-2005 influenza virus vacc ine, unspecified formulation Terrance Mccain MD Work Phone: [facility] Work Phone: 05-06-1994 pneumococcal polysaccharide vaccine, 23 valent Terrance Mccain MD Work Phone: [facility] Work Phone: Payers Date Payer Category Payer Private Health Insurance [facility] A[employer] SUPPLEMENT [id number] 2014-Present [phone] [id number] [place] [address] Indemnity [id number] 2014 Private Health Insurance [facility] [employer] SUPPLEMENT [id number] 2014-Present [phone] [address] [place] [address] Indemnity [id number] 2014 Unknown [id number] 2007 Medicare [id number] 2007 Medicare MEDICARE MEDICAR E A AND B [id number] 2007-Present [phone] [place] [address] Medicare [id number] 2007 Medicare MEDICARE MEDICAR E A AND B [id number] 2007-Present [phone] [place] [address] Medicare [id number] 1940 Unknown [id number] Unknown [id number] Social History Date Type Detail Facility Start: 07-17-2021 End: 07-17-2021 Assertion Unknown if ever smoked [facility] Work Phone: Start: 11-18-2011 End: 12-14-2021 Tobacco smoking status NHIS Never smoked tobacco [facility] Start: 07-10-2021 End: 07-23-2022 Alcohol intake Current non-drinker of alcohol (finding) [facility] Start: 1940 Sex Assigned At Not on file [facility] Start: 10-22-2021 End: 03-12-2022 Exposure to SARS-CoV-2 (event) Not sure [facility] Start: 11-18-2011 End: 12-14-2021 Tobacco use and exposure Smokeless tobacco non-user [facility] Start: 11-01-2022 End: 11-12-2022 History of Social function [facility] Start: 11-01-2022 End: 11-12-2022 Tobacco use panel [facility] Adult Depression Screening Assessment 0 [facility] Start: 04-22-2023 Alcohol intake Ex-drinker (finding) [facility] NEGATED: Highlighted rowStart: 06-12-2021 End: 06-12-2021 Alcohol use Alcohol use [facility] Work Phone: NEGATED: Highlighted rowStart: 06-12-2021 End: 06-12-2021 Details of drug misuse behavior Details of drug misuse behavior [facility] Work Phone: NEGATED: Highlighted rowStart: 06-12-2021 End: 06-12-2021 Employment detail Employment detail [facility] Work Phone: NEGATED: Highlighted rowStart: 06-12-2021 End: 06-12-2021 Assertion Never smoker [facility] Work Phone: NEGATED: Highlighted rowStart: 07-17-2021 End: 07-17-2021 Employment detail Employment detail [facility] Work Phone: Medical Equipment Procedure Code Equipment Code Equipment Origin al Text Equipment Identifier Dates Yevgeniy Bn Smpx P Ra dpq Fd Strl - [id number] Start: 02-02-2014 Comp Fem 4 Rt Kn Ps Yevgeniy Trthln - [id number] Start: 02-02-2014 Ins Tib 4 11mm K n X3 Ps Trthln - [id number] Start: 02-02-2014 Ins Tib 4 11mm K n X3 Ps Trthln - [id number] Start: 02-23-2014 Comp Pat 3 10mm 32mm Asym - [id number] Start: 02-02-2014 Baseplt Tib Trth ln 4 Kn Yevgeniy - [id number] Start: 02-02-2014 Clinical Notes 03-30-2016 to 06-25-2023 Telephone Encounter - Linda Nava - 06/25/2023 1:11 PM Lyly Lang PA- C - 01/14/2023 10:59 AM EDTTelephone Encounter - Ronit KrishnamurthyHELGA snell - 01/11/2023 8:50 AM EDTPatient Instructions Note Date & Type Note Facility 06-25-2023 Miscellaneous Notes Kendal is calling Terrance Mccain MD today to request a 90 day supply of : fremanezumab-vfrm (AJOVY AUTOINJECTOR) 225 mg/1.5 mL auto-injector to be sent to [facility]. It costs her more if she only gets one at a time like the current script is written for. No chief complaint on file. Patient has been identified by name and birthdate. Duration of symptoms: N/A Person calling: self Call patient at: on cell [phone] (home) [phone] (cell) Was an appointment scheduled: No Closing statement: Results or non-symptom based questions: Thank you for calling [facility], your call will be returned within the next business day. Linda Martínez documented in this encounter [facility] 04-22-2023 Note HNO ID: [id number] Author: Jennifer Ledesma PA-C Service: ? Author Type: Physician Acid Dumper Type: Progress Notes Filed: 04/22/2023 4:01 PM Note Text: [facility] [place] Some elements copied from his previous note, which have been updated where appropriate, and all reflect current medical decision making from date of this visit. PATIENT INFO: Kendal Taylor CHIEF COMPLAINT: UTI Follow-up HPI: This is a 83 year old female who is here for follow up on recurrent UTIs UTI prevention, topical Estrogen working but unable to afford the brand name so new Rx sent to P today Refilled Estrogen and Macrodantin 50 mg daily Restart Topical estrogen and daily Macrobid 50 mg once daily Urine Culture sent today Results for orders placed or performed in visit on 04/22/23 UA DIP, URINE (POC) Result Value Ref Range GLUCOSE UA (POCT) Negative Negative mg/dL BILIRUBIN UA (POCT) Negative Negative KETONE UA (POCT) Trace Negative mg/dL SPECIFIC GRAVITY UA (POCT) >=1.030 1.005 - 1.030 HEMOGLOBIN/BLOOD UA (POCT) Trace-intact (A) Negative PH UA (POCT) 5.5 4.5 - 8.0 PROTEIN UA (POCT) Negative Negative mg/dL UROBILINOGEN UA (POCT) 0.2 Normal E.U./dL NITRITE UA (POCT) Positive (A) Negative LEUKOCYTES UA (POCT) Moderate (A) Negative COLOR UA (POCT) Yellow CLARITY UA (POCT) Cloudy *Note: Due to a large number of results and/or encounters for the requested time period, some results have not been displayed. A complete set of results can be found in Results Review. MEDICATIONS benzonatate (TESSALON PERLES) 100 mg capsule Take 2 capsules by mouth three times daily as needed. rizatriptan (MAXALT) 10 mg tablet Take 1 tablet by mouth as needed (at onset of headache. May repeat after 2 hours.). Do not exceed 30 mg per day. fremanezumab-vfrm ([email or web address] AUTOINJECTOR) 225 mg/1.5 mL auto-injector Inject 1.5 mL subcutaneously once every month. Do not shake. spironolactone (ALDACTONE) 25 mg tablet Take 1 tablet by mouth once daily. colestipol (COLESTID) 1 gram tablet Take 3 tablets by mouth once daily. sucralfate (CARAFATE) 1 gram tablet Take 1 tablet by mouth twice daily. methocarbamol (ROBAXIN) 750 mg tablet Take 1 tablet by mouth twice daily as needed. riboflavin, vitamin B2, (VITAMIN B2) 100 mg tab Take 200 mg by mouth twice daily. MAGNESIUM ORAL Take 500 mg by mouth daily at bedtime. coenzyme Q10 (COENZYME Q-10) 100 mg cap capsule Take 200 mg by mouth once daily. diphenoxylate-atropine (LOMOTIL) 2.5-0.025 mg per tablet Take 1 tablet by mouth twice daily as needed for diarrhea for up to 90 days. omeprazole (PRILOSEC) 40 mg capsule TAKE 1 CAPSULE DAILY meclizine (ANTIVERT) 12.5 mg tab Take 1 tablet by mouth three times daily as needed (dizziness). acetaminophen (TYLENOL ORAL) Take by mouth as needed. cholecalciferol, vitamin D3, (VITAMIN D3 ORAL) Take 5,000 Units by mouth once daily. nitrofurantoin macrocrystal (MACRODANTIN) 50 mg capsule Take 1 capsule by mouth once daily. estradiol (E2) emollient cream 0.2 mg/gram (CPD) Finger-Tip amount applied to indicated area at bedtime every other day fluconazole (DIFLUCAN) 150 mg tablet Take 1 tablet by mouth Every 3 Days. ketoconazole (NIZORAL) 2 % shampoo Apply to scalp rash every other day until clear- Lather and rinse and then lather 2nd time and leave set on hair for 5 min and rinse again. (Patient not taking: Reported on 04/22/2023) HYDROcodone-acetaminophen (NORCO) 5-325 mg per tablet Take 1 tablet by mouth every 8 hours as needed for pain. (Patient not taking: Reported on 04/22/2023) potassium chloride SR (MICRO-K) 10 mEq CR capsule Take 1 capsule by mouth once daily. (Patient not taking: Reported on 04/22/2023) REVIEW OF SYSTEMS: GENERAL: No fever, chills, weight loss, or fatigue. PHYSICAL EXAM: Blood pressure 140/72, pulse 94, temperature 36.6 ?C (97.9 ?F), temperature source Temporal, resp. rate 12, height 149.9 cm (4' 11 ), weight 77 kg (169 lb 12.8 oz), SpO2 99%. GENERAL:WNL nutrition, no deformities, healthy appearing IMPRESSION/PLAN: > History of Atrophic Vaginitis > Topical Estrogen - Refilled at [facility] > UTI - Restart Topical estrogen and daily Macrobid 50 mg once daily Urine Culture sent today > [address] [place], PA-C for refill JOHANNA Combs MT, PA-C Electronically signed [facility] 01-14-2023 Note HNO ID: [id number] Author: Lyly Calvillo PA-C Service: ? Author Type: Physician Acid Dumper Type: Progress Notes Filed: 01/14/2023 11:03 AM Note Text: This note was created using Pole Starriter. Demi Taylor is a 82 year old female. HPI Patient presents with a chief complaint of sinus pressure and congestion over the past 10 days. She has had a cough. No chest pain. She states sometimes it is productive. She had a fever in the beginning but none since then. She did take some Tylenol today for her headache. No home COVID test done. She denies sick contacts. No diarrhea or vomiting. She states she has had sinus infections previously and this feels similar. Review of Systems Constitutional: Positive for fatigue and fever. HENT: Positive for congestion, sinus pressure and sinus pain. Negative for ear pain and sore throat. Respiratory: Positive for cough. Negative for shortness of breath and wheezing. Cardiovascular: Negative. Gastrointestinal: Negative. Genitourinary: Negative. Musculoskeletal: Negative. All other systems reviewed and are negative. 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 12/24/2010 Carpal tunnel syndrome, right 06/05/2015 Contact dermatitis and other eczema, due to unspecified cause 05/14/2006 Diarrhea Diverticulosis of colon (without mention of hemorrhage) DIVERTICULOSIS OF COLON W/O BLEED 08/09/2005 Essential hypertension, benign Fracture of left distal radius 06/04/2011 Inguinal hernia without mention of obstruction or gangrene, unilateral or unspecified, (not specified as recurrent) 12/14/2013 Internal hemorrhoids without mention of complication 01/09/2011 IRRITABLE COLON 08/09/2005 Knee joint replacement status 04/04/2014 Macular edema 08/17/2010 Osteoarthritis OSTEOPOROSIS NOS 08/09/2005 Personal history of colonic polyps 11/11/2005 Colonoscopy - 11 October 2005 - Repeat in five years PURE HYPERCHOLESTEROLEM 08/09/2005 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 14 capsule 0 rizatriptan (MAXALT) 10 mg tablet Take 1 tablet by mouth as needed (at onset of headache. May repeat after 2 hours.). Do not exceed 30 mg per day. 10 tablet 3 spironolactone (ALDACTONE) 25 mg tablet Take 1 tablet by mouth once daily. 90 tablet 3 colestipol (COLESTID) 1 gram tablet Take 3 tablets by mouth once daily. 270 tablet 3 sucralfate (CARAFATE) 1 gram tablet Take 1 tablet by mouth twice daily. 360 tablet 3 methocarbamol (ROBAXIN) 750 mg tablet Take 1 tablet by mouth twice daily as needed. 60 tablet 3 conjugated estrogens (PREMARIN) vaginal cream Apply finger-tip amount as directed in handout ( no applicator needed) daily 30 g 4 riboflavin, vitamin B2, (VITAMIN B2) 100 mg tab Take 200 mg by mouth twice daily. MAGNESIUM ORAL Take 500 mg by mouth daily at bedtime. coenzyme Q10 (COENZYME Q-10) 100 mg cap capsule Take 200 mg by mouth once daily. diphenoxylate-atropine (LOMOTIL) 2.5-0.025 mg per tablet Take 1 tablet by mouth twice daily as needed for diarrhea for up to 90 days. 90 tablet 1 potassium chloride SR (MICRO-K) 10 mEq CR capsule Take 1 capsule by mouth once daily. 90 capsule 3 omeprazole (PRILOSEC) 40 mg capsule TAKE 1 CAPSULE DAILY 90 capsule 3 meclizine (ANTIVERT) 12.5 mg tab Take 1 tablet by mouth three times daily as needed (dizziness). 90 tablet 1 acetaminophen (TYLENOL ORAL) Take by mouth as needed. cholecalciferol, vitamin D3, (VITAMIN D3 ORAL) Take 5,000 Units by mouth once daily. cefdinir (OMNICEF) 300 mg capsule Take 1 capsule by mouth twice daily for 7 days. 14 capsule 0 benzonatate (TESSALON PERLES) 100 mg capsule Take 2 capsules by mouth three times daily as needed. 30 capsule 0 fremanezumab-vfrm (flyRuby.comOVY AUTOINJECTOR) 225 mg/1.5 mL auto-injector Inject 1.5 mL subcutaneously once every month. Do not shake. 4.5 mL 3 fluconazole (DIFLUCAN) 150 mg tablet Take 1 tablet by mouth Every 3 Days. (Patient not taking: Reported on 01/08/2023) 3 tablet 1 ketoconazole (NIZORAL) 2 % shampoo Apply to scalp rash every other day until clear- Lather and rinse and then lather 2nd time and leave set on hair for 5 min and rinse again. (Patient taking differently: once daily as needed. Apply to scalp rash every other day until clear- Lather and rinse and then lather 2nd time and leave set on hair for 5 min and rinse again.) 120 mL 2 nitrofurantoin macrocrystal (MACRODANTIN) 50 mg capsule Take 1 capsule by mouth once daily. (Patient not taking: (more content not included)... [facility] 01-14-2023 History of Present illness Narrative This note was created using Pole Starriter. Subjective Kendal Taylor is a 82 year old female. HPI Patient presents with a chief complaint of sinus pressure and congestion over the past 10 days. She has had a cough. No chest pain. She states sometimes it is productive. She had a fever in the beginning but none since then. She did take some Tylenol today for her headache. No home COVID test done. She denies sick contacts. No diarrhea or vomiting. She states she has had sinus infections previously and this feels similar. Review of Systems Constitutional: Positive for fatigue and fever. HENT: Positive for congestion, sinus pressure and sinus pain. Negative for ear pain and sore throat. Respiratory: Positive for cough. Negative for shortness of breath and wheezing. Cardiovascular: Negative. Gastrointestinal: Negative. Genitourinary: Negative. Musculoskeletal: Negative. All other systems reviewed and are negative. 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 12/24/2010 Carpal tunnel syndrome, right 06/05/2015 Contact dermatitis and other eczema, due to unspecified cause 05/14/2006 Diarrhea Diverticulosis of colon (without mention of hemorrhage) DIVERTICULOSIS OF COLON W/O BLEED 08/09/2005 Essential hypertension, benign Fracture of left distal radius 06/04/2011 Inguinal hernia without mention of obstruction or gangrene, unilateral or unspecified, (not specified as recurrent) 12/14/2013 Internal hemorrhoids without mention of complication 01/09/2011 IRRITABLE COLON 08/09/2005 Knee joint replacement status 04/04/2014 Macular edema 08/17/2010 Osteoarthritis OSTEOPOROSIS NOS 08/09/2005 Personal history of colonic polyps 11/11/2005 Colonoscopy - 11 October 2005 - Repeat in five years PURE HYPERCHOLESTEROLEM 08/09/2005 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 14 capsule 0 rizatriptan (MAXALT) 10 mg tablet Take 1 tablet by mouth as needed (at onset of headache. May repeat after 2 hours.). Do not exceed 30 mg per day. 10 tablet 3 spironolactone (ALDACTONE) 25 mg tablet Take 1 tablet by mouth once daily. 90 tablet 3 colestipol (COLESTID) 1 gram tablet Take 3 tablets by mouth once daily. 270 tablet 3 sucralfate (CARAFATE) 1 gram tablet Take 1 tablet by mouth twice daily. 360 tablet 3 methocarbamol (ROBAXIN) 750 mg tablet Take 1 tablet by mouth twice daily as needed. 60 tablet 3 conjugated estrogens (PREMARIN) vaginal cream Apply finger-tip amount as directed in handout ( no applicator needed) daily 30 g 4 riboflavin, vitamin B2, (VITAMIN B2) 100 mg tab Take 200 mg by mouth twice daily. MAGNESIUM ORAL Take 500 mg by mouth daily at bedtime. coenzyme Q10 (COENZYME Q-10) 100 mg cap capsule Take 200 mg by mouth once daily. diphenoxylate-atropine (LOMOTIL) 2.5-0.025 mg per tablet Take 1 tablet by mouth twice daily as needed for diarrhea for up to 90 days. 90 tablet 1 potassium chloride SR (MICRO-K) 10 mEq CR capsule Take 1 capsule by mouth once daily. 90 capsule 3 omeprazole (PRILOSEC) 40 mg capsule TAKE 1 CAPSULE DAILY 90 capsule 3 meclizine (ANTIVERT) 12.5 mg tab Take 1 tablet by mouth three times daily as needed (dizziness). 90 tablet 1 acetaminophen (TYLENOL ORAL) Take by mouth as needed. cholecalciferol, vitamin D3, (VITAMIN D3 ORAL) Take 5,000 Units by mouth once daily. cefdinir (OMNICEF) 300 mg capsule Take 1 capsule by mouth twice daily for 7 days. 14 capsule 0 benzonatate (TESSALON PERLES) 100 mg capsule Take 2 capsules by mouth three times daily as needed. 30 capsule 0 fremanezumab-vfrm (AJOVY AUTOINJECTOR) 225 mg/1.5 mL auto-injector Inject 1.5 mL subcutaneously once every month. Do not shake. 4.5 mL 3 fluconazole (DIFLUCAN) 150 mg tablet Take 1 tablet by mouth Every 3 Days. (Patient not taking: Reported on 01/08/2023) 3 tablet 1 ketoconazole (NIZORAL) 2 % shampoo Apply to scalp rash every other day until clear- Lather and rinse and then lather 2nd time and leave set on hair for 5 min and rinse again. (Patient taking differently: once daily as needed. Apply to scalp rash every other day until clear- Lather and rinse and then lather 2nd time and leave set on hair for 5 min and rinse again.) 120 mL 2 nitrofurantoin macrocrystal (MACRODANTIN) 50 mg capsule Take 1 capsule by mouth once daily. (Patient not taking: Reported on 01/08/2023) 90 capsule 3 HYDROcodone-acetaminophen (NORCO) 5-325 mg per tablet Take 1 tablet by mouth every 8 hours as needed for pain. 30 tablet 0 No current facility-administered medications for this visit. PAST SURGICAL HISTORY Procedure Laterality Date ANTERIOR COLPORRAPHY RPR CYSTOCELE W/CYSTO 2003 Cystocele repair ARTHROSCOPY KNEE DIAGNOSTIC W/WO SYNOVIAL BX SPX 2004 Arthroscopy, knee right ARTHROSCOPY KNEE DIAGNOSTIC W/WO SYNOVIAL BX SPX 1994 Arthroscopy, knee left and right COLONOSCOPY FLX DX W/COLLJ SPEC WHEN PFRMD 10/01/2002 Colonoscopy COLONOSCOPY FLX DX W/COLLJ SPEC WHEN PFRMD 01/09/2011 Colonoscopy COLONOSCOPY W/BIOPSY SINGLE/MULTIPLE 10/11/05 Diverticulosis CYSTOSCOPY 04/13/15 DESTRUCTION BENIGN LESIONS UP TO 14 10/16/06 Right infraorbital skin lesion ablation ESOPHAGOGASTRODUODENOSCOPY TRANSORAL DIAGNOSTIC 11/02/2018 EGD LAPAROSCOPY SURG CHOLECYSTECTOMY 1989' Cholecystectomy, lap PAST SURGICAL HISTORY OF 09/29 repair prolapse bladder PAST SURGICAL HISTORY OF eye laser surgery PAST SURGICAL HISTORY OF 1988 B/L bunion surgery - Dr. Solis - [facility] PAST SURGICAL HISTORY OF 02/02/2014 right TKA & I&D of right TKA on 02/23/14 PAST SURGICAL HISTORY OF 06/02/2015 right ring trigger finger release REVISE MEDIAN N/CARPAL TUNNEL SURG 06/02/2015 right carpal tunnel release SKIN BX, 1 LESION 03/10/12 Left cheek skin lesion bx TOTAL ABDOMINAL HYSTERECT W/WO RMVL TUBE OVARY 1981 FAMILY HISTORY Problem Relation Age of Onset Heart Mother Hypertension Mother other (Colitis) Mother Heart Father Diabetes Father DVT Father Diabetes Paternal Aunt Diabetes Paternal Uncle Hypertension Maternal Grandmother Heart Maternal Grandmother DVT Brother other (Colitis) Sister Social History Tobacco Use Smoking status: Never Smokeless tobacco: Never Vaping Use Vaping Use: Never used Substance Use Topics Alcohol use: No Drug use: No Objective BP 128/74 Pulse 92 Temp 36.6 C (97.8 F) Resp 16 Wt 73.5 kg (162 lb) SpO2 99% BMI 31.64 kg/m Physical Exam Vitals reviewed. Constitutional: Appearance: Normal appearance. HENT: Head: Normocephalic and atraumatic. Right Ear: Tympanic membrane, ear canal and external ear normal. Left Ear: Tympanic membrane, ear canal and external ear normal. Nose: Congestion present. Right Sinus: Maxillary sinus tenderness and frontal sinus tenderness present. Left Sinus: Maxillary sinus tenderness and frontal sinus tenderness present. Mouth/Throat: Mouth: Mucous membranes are moist. Pharynx: Oropharynx is clear. Cardiovascular: Rate and Rhythm: Normal rate and regular rhythm. Heart sounds: Normal heart sounds. Pulmonary: Effort: Pulmonary effort is normal. Breath sounds: Normal breath sounds. Musculoskeletal: Cervical back: Neck supple. Lymphadenopathy: Cervical: No cervical adenopathy. Skin: General: Skin is warm and dry. Neurological: General: No focal deficit present. Mental Status: She is alert. Assessment and Plan ASSESSMENT/PLAN: 1. Acute non-recurrent pansinusitis - ICD9: 461.8, ICD10: J01.40 - Will begin treatment with as per antibiotic as written, see orders - Supportive care with plenty of fluids, rest, and analgesia prn. - Follow up in 3-5 days if symptoms persist or worsen. Lyly Calvillo PA-C documented in this encounter [facility] 01-11-2023 Miscellaneous Notes Left detailed message on identifiable voicemail Is on the correct antibiotic according to urine culture please make sure symptoms are improving. If symptoms or not improving she should follow-up with primary care. documented in this encounter [facility] 01-10-2023 Miscellaneous Notes Patient returned call. She reports she is taking macrobid as directed by EC until 01/15/23. She verbalized understanding to resume the 50 mg Macrodantin the following day. She does have a prescription of the macrodantin coming for [facility]. I called and left a message for the patient to contact the office. I recommend holding 50 mg Macrodantin only when taking full course of antibiotics for UTI JOHANNA Combs, MAL, MECHE Patient called. Verified name and date of . Patient seen in Urgent Care yesterday for UTI and was ordered Macrodantin 100 MG by mouth twice daily for seven days. She is questioning being able to resume taking Macrodantin 50 MG daily as maintenance dose stating Dr. Atkins has told her to stop taking it in July due to seeing her for being tired. Had been doing well on the maintenance dose and plans to have refill done to restart taking it after higher dose completed. Patient would like Jennifer Ledesma PA-C to review and verify okay to restart taking the 50 MG daily. Please review and advise. Flower Baez LPN documented in this encounter [facility] 01-08-2023 Note HNO ID: [id number] Author: Petey Campos MD Service: ? Author Type: Physician Type: Progress Notes Filed: 01/08/2023 2:18 PM Note Text: Patient presents with: Urinary Frequency: burning with urination, low back pain and odor x 5 days HPI: Symptoms for 5 days. Dysuria: Yes Frequency: Yes Hematuria: No Nausea: No Fever or chills: no but does not feel well Back pain: Yes Abdominal pain: Yes Prior UTI: Yes She had been on nitrofurantoin through urology, but her mail away pharmacy said her doctor cancelled the prescription. MEDICATIONS: Current Outpatient Medications Medication Sig rizatriptan (MAXALT) 10 mg tablet Take 1 tablet by mouth as needed (at onset of headache. May repeat after 2 hours.). Do not exceed 30 mg per day. fremanezumab-vfrm (flyRuby.comOVY AUTOINJECTOR) 225 mg/1.5 mL auto-injector Inject 1.5 mL subcutaneously once every month. Do not shake. spironolactone (ALDACTONE) 25 mg tablet Take 1 tablet by mouth once daily. colestipol (COLESTID) 1 gram tablet Take 3 tablets by mouth once daily. sucralfate (CARAFATE) 1 gram tablet Take 1 tablet by mouth twice daily. methocarbamol (ROBAXIN) 750 mg tablet Take 1 tablet by mouth twice daily as needed. ketoconazole (NIZORAL) 2 % shampoo Apply to scalp rash every other day until clear- Lather and rinse and then lather 2nd time and leave set on hair for 5 min and rinse again. (Patient taking differently: once daily as needed. Apply to scalp rash every other day until clear- Lather and rinse and then lather 2nd time and leave set on hair for 5 min and rinse again.) conjugated estrogens (PREMARIN) vaginal cream Apply finger-tip amount as directed in handout ( no applicator needed) daily riboflavin, vitamin B2, (VITAMIN B2) 100 mg tab Take 200 mg by mouth twice daily. MAGNESIUM ORAL Take 500 mg by mouth daily at bedtime. coenzyme Q10 (COENZYME Q-10) 100 mg cap capsule Take 200 mg by mouth once daily. HYDROcodone-acetaminophen (NORCO) 5-325 mg per tablet Take 1 tablet by mouth every 8 hours as needed for pain. diphenoxylate-atropine (LOMOTIL) 2.5-0.025 mg per tablet Take 1 tablet by mouth twice daily as needed for diarrhea for up to 90 days. potassium chloride SR (MICRO-K) 10 mEq CR capsule Take 1 capsule by mouth once daily. omeprazole (PRILOSEC) 40 mg capsule TAKE 1 CAPSULE DAILY meclizine (ANTIVERT) 12.5 mg tab Take 1 tablet by mouth three times daily as needed (dizziness). acetaminophen (TYLENOL ORAL) Take by mouth as needed. cholecalciferol, vitamin D3, (VITAMIN D3 ORAL) Take 5,000 Units by mouth once daily. fluconazole (DIFLUCAN) 150 mg tablet Take 1 tablet by mouth Every 3 Days. (Patient not taking: Reported on 01/08/2023) nitrofurantoin macrocrystal (MACRODANTIN) 50 mg capsule Take 1 capsule by mouth once daily. (Patient not taking: Reported on 01/08/2023) No current facility-administered medications for this visit. ALLERGIES: ALLERGIES Allergen Reactions Jazmin Inhibitors Other: See Comments listril, zestril; makes headaches worse Advair Diskus [Flut* Intolerance sore mouth Albuterol Intolerance anxiety,jitters,tachycardia Amitriptyline Mental Status Change sedation with high doses only. Takes regularly Amoxicillin Hives HIVES Bactrim [Sulfametho* Rash, Other: See Comments fever from medication Caffeine Mental Status Change NAUSEA, MIGRAINES excedrin plus Mountain Dew but can tolerate low dose caffeine seizure 1980 Codeine GI Upset, Other: See Comments NAUSEA, MIGRAINES Doxycycline Hyclate Hives hives Hydantoins Other: See Comments Dilantin; does not remember reaction Levaquin [Levofloxa* Intolerance Dizziness at 500mg dose Pneumovax 23 [Pneum* Other: See Comments had one in 1997,, had reaction; arm swelled up for about 8 months [id number]-[id number] Red* Other: See Comments pt declines-not work Ultram [Tramadol Hc* Other: See Comments headache VITALS: BP 124/80 Pulse 88 Temp 36.5 ?C (97.7 ?F) Resp 16 Wt 73.9 kg (163 lb) SpO2 99% BMI 31.83 kg/m? PHYSICAL EXAM: GEN: NAD HEENT: EOMI, conjunctiva clear, HEART: regular rate and rhythm, no murmurs LUNGS: clear to auscultation, no wheezes or crackles, no increased WOB ABDOMEN: Soft, nondistended, no masses, suprapubic tenderness BACK: No CVA tenderness ASSESSMENT/PLAN: 1. Urinary frequency - ICD9: 788.41, ICD10: R35.0 - UA positive for efrain esterase and hematuria - UA DIP, URINE (POC) - URINE CULTURE Start - NITROFURANTOIN MONOHYDRATE AND MACROCRYSTAL 100 MG ORAL CAP. Suppressive dose prescription has not been cancelled in the EMR - it is not clear why the pharmacy did not continue filling it. She will contact urology to see about a refill. She has switched PCP to Navdeep since Dr Atkins is doing a fellowship. Petey Campos MD [facility] 01-08-2023 History of Present illness Narrative Patient presents with: Urinary Frequency: burning with urination, low back pain and odor x 5 days HPI: Symptoms for 5 days. Dysuria: Yes Frequency: Yes Hematuria: No Nausea: No Fever or chills: no but does not feel well Back pain: Yes Abdominal pain: Yes Prior UTI: Yes She had been on nitrofurantoin through urology, but her mail away pharmacy said her doctor cancelled the prescription. MEDICATIONS: Current Outpatient Medications Medication Sig rizatriptan (MAXALT) 10 mg tablet Take 1 tablet by mouth as needed (at onset of headache. May repeat after 2 hours.). Do not exceed 30 mg per day. fremanezumab-vfrm (AJOVY AUTOINJECTOR) 225 mg/1.5 mL auto-injector Inject 1.5 mL subcutaneously once every month. Do not shake. spironolactone (ALDACTONE) 25 mg tablet Take 1 tablet by mouth once daily. colestipol (COLESTID) 1 gram tablet Take 3 tablets by mouth once daily. sucralfate (CARAFATE) 1 gram tablet Take 1 tablet by mouth twice daily. methocarbamol (ROBAXIN) 750 mg tablet Take 1 tablet by mouth twice daily as needed. ketoconazole (NIZORAL) 2 % shampoo Apply to scalp rash every other day until clear- Lather and rinse and then lather 2nd time and leave set on hair for 5 min and rinse again. (Patient taking differently: once daily as needed. Apply to scalp rash every other day until clear- Lather and rinse and then lather 2nd time and leave set on hair for 5 min and rinse again.) conjugated estrogens (PREMARIN) vaginal cream Apply finger-tip amount as directed in handout ( no applicator needed) daily riboflavin, vitamin B2, (VITAMIN B2) 100 mg tab Take 200 mg by mouth twice daily. MAGNESIUM ORAL Take 500 mg by mouth daily at bedtime. coenzyme Q10 (COENZYME Q-10) 100 mg cap capsule Take 200 mg by mouth once daily. HYDROcodone-acetaminophen (NORCO) 5-325 mg per tablet Take 1 tablet by mouth every 8 hours as needed for pain. diphenoxylate-atropine (LOMOTIL) 2.5-0.025 mg per tablet Take 1 tablet by mouth twice daily as needed for diarrhea for up to 90 days. potassium chloride SR (MICRO-K) 10 mEq CR capsule Take 1 capsule by mouth once daily. omeprazole (PRILOSEC) 40 mg capsule TAKE 1 CAPSULE DAILY meclizine (ANTIVERT) 12.5 mg tab Take 1 tablet by mouth three times daily as needed (dizziness). acetaminophen (TYLENOL ORAL) Take by mouth as needed. cholecalciferol, vitamin D3, (VITAMIN D3 ORAL) Take 5,000 Units by mouth once daily. fluconazole (DIFLUCAN) 150 mg tablet Take 1 tablet by mouth Every 3 Days. (Patient not taking: Reported on 01/08/2023) nitrofurantoin macrocrystal (MACRODANTIN) 50 mg capsule Take 1 capsule by mouth once daily. (Patient not taking: Reported on 01/08/2023) No current facility-administered medications for this visit. ALLERGIES: ALLERGIES Allergen Reactions Jazmin Inhibitors Other: See Comments listril, zestril; makes headaches worse Advair Diskus [Flut* Intolerance sore mouth Albuterol Intolerance anxiety,jitters,tachycardia Amitriptyline Mental Status Change sedation with high doses only. Takes regularly Amoxicillin Hives HIVES Bactrim [Sulfametho* Rash, Other: See Comments fever from medication Caffeine Mental Status Change NAUSEA, MIGRAINES excedrin plus Mountain Dew but can tolerate low dose caffeine seizure 1980 Codeine GI Upset, Other: See Comments NAUSEA, MIGRAINES Doxycycline Hyclate Hives hives Hydantoins Other: See Comments Dilantin; does not remember reaction Levaquin [Levofloxa* Intolerance Dizziness at 500mg dose Pneumovax 23 [Pneum* Other: See Comments had one in 1997,, had reaction; arm swelled up for about 8 months [id number]-Nao-Fvp Red* Other: See Comments pt declines-not work Ultram [Tramadol Hc* Other: See Comments headache VITALS: BP 124/80 Pulse 88 Temp 36.5 C (97.7 F) Resp 16 Wt 73.9 kg (163 lb) SpO2 99% BMI 31.83 kg/m PHYSICAL EXAM: GEN: NAD HEENT: EOMI, conjunctiva clear, HEART: regular rate and rhythm, no murmurs LUNGS: clear to auscultation, no wheezes or crackles, no increased WOB ABDOMEN: Soft, nondistended, no masses, suprapubic tenderness BACK: No CVA tenderness ASSESSMENT/PLAN: 1. Urinary frequency - ICD9: 788.41, ICD10: R35.0 - UA positive for efrain esterase and hematuria - UA DIP, URINE (POC) - URINE CULTURE Start - NITROFURANTOIN MONOHYDRATE & MACROCRYSTAL 100 MG ORAL CAP. Suppressive dose prescription has not been cancelled in the EMR - it is not clear why the pharmacy did not continue filling it. She will contact urology to see about a refill. She has switched PCP to Navdeep since Dr Atkins is doing a fellowship. Petey Campos MD documented in this encounter [facility] 12-31-2022 Miscellaneous Notes PA for Robaxin completed and approved documented in this encounter [facility] 11-18-2022 Note Patient Outreach (KATI TNAV) TAYLORKENDAL SIDDIQUI ([id number]) 1940 F Date Time Provider Department 11/18/22 CAMI RATLIFF During your visit today, we recorded the following information about you: Cami Ratliff MA 11/18/2022 1:39 PM Signed POPULATION HEALTH NAVIGATION OUTREACH Action/ no answer [email or web address] message sent ANNUAL MEDICARE WELLNESS EXAN ADVANCE DIRECTIVE DISCUSSION Patient Identified by Name and : NO Outreach Outcome/Action Unable to reach patient: Phone number not valid / voicemail full Disruptor Beamhart message sent Did you use a PCP flex slot to schedule this appointment? N/A Reason for Outreach Care Gap or Scheduling/Wellness visits Payer: Payor: MEDICARE / Plan: MEDICARE A AND B / Product Type: Medicare / Care Gap Reviewed:: Annual Wellness visit Reminder: Reminder note to check Health Maintenance for items below Health Maintenance items due: COVID-19 VACCINE(1) Never done DTAP,TDAP,TD(1 - Tdap) due on 08/11/2007 ADVANCE DIRECTIVE DISCUSSION Never done Navigation Signature: Cami Ratliff MA November 18, 2022 9:05 AM Allergies As of Date: 11/18/2022 Noted Allergy Reaction JAZMIN INHIBITORS 05/13/2003 14 - Other: See Comments Comments: listril, zestril; makes headaches worse ADVAIR DISKUS (FLUTICASONE PROPIO*04/04/2011 5 - Intolerance Comments: sore mouth ALBUTEROL 04/04/2011 5 - Intolerance Comments: anxiety,jitters,tachycardia AMITRIPTYLINE 02/23/2015 1 - Mental Status Change Comments: sedation with high doses only. Takes regularly AMOXICILLIN 05/13/2003 4 - Hives Comments: HIVES BACTRIM (SULFAMETHOXAZOLE-TRIMETH* 011 2 - Rash 14 - Other: See Comments Comments: fever from medication CAFFEINE 05/13/2003 1 - Mental Status Change Comments: NAUSEA, MIGRAINES excedrin plus Mountain Dew but can tolerate low dose caffeine seizure 1980 CODEINE 8 - GI Upset 14 - Other: See Comments Comments: NAUSEA, MIGRAINES DOXYCYCLINE HYCLATE 08/10/2007 4 - Hives Comments: hives HYDANTOINS 05/13/2003 14 - Other: See Comments Comments: Dilantin; does not remember reaction LEVAQUIN (LEVOFLOXACIN) 10/13/2018 5 - Intolerance Comments: Dizziness at 500mg dose PNEUMOVAX 23 (PNEUMOCOCCAL 23-SANTOSH*08/09/2005 14 - Other: See Comments Comments: had one in 1997,, had reaction; arm swelled up for about 8 months ERNGRQL-IRT-OHA REDUCTASE INHIBIT*03/22/2015 14 - Other: See Comments Comments: pt declines-not work ULTRAM (TRAMADOL HCL) 02/21/2014 14 - Other: See Comments Comments: headache Date Reviewed: 11/12/2022 Reviewed by: Altaf Katz APRN.SCREW MACHINE HAND - Fully Assessed Reason for Visit: Population Health Navigation Outreach [3910] Cmt: TATE ARREOLA PCSA Prescriptions as of 11/18/2022 - rizatriptan (MAXALT) 10 mg tablet Take 1 tablet by mouth as needed (at onset of headache. May repeat after 2 hours.). Do not exceed 30 mg per day. - fremanezumab-vfrm (AJOVY AUTOINJECTOR) 225 mg/1.5 mL auto-injector Inject 1.5 mL subcutaneously once every month. Do not shake. - spironolactone (ALDACTONE) 25 mg tablet Take 1 tablet by mouth once daily. - fluconazole (DIFLUCAN) 150 mg tablet Take 1 tablet by mouth Every 3 Days. - colestipol (COLESTID) 1 gram tablet Take 3 tablets by mouth once daily. - sucralfate (CARAFATE) 1 gram tablet Take 1 tablet by mouth twice daily. - methocarbamol (ROBAXIN) 750 mg tablet Take 1 tablet by mouth twice daily as needed. - sodium chloride (SALINE MIST) 0.65 % nasal spray Use 1 Sully in the nose as needed for cold/allergy symptoms. - ketoconazole (NIZORAL) 2 % shampoo Apply to scalp rash every other day until clear- Lather and rinse and then lather 2nd time and leave set on hair for 5 min and rinse again. - conjugated estrogens (PREMARIN) vaginal cream Apply finger-tip amount as directed in handout ( no applicator needed) daily - nitrofurantoin macrocrystal (MACRODANTIN) 50 mg capsule Take 1 capsule by mouth once daily. - riboflavin, vitamin B2, (VITAMIN B2) 100 mg tab Take 200 mg by mouth twice daily. - MAGNESIUM ORAL Take 500 mg by mouth daily at bedtime. - coenzyme Q10 (COENZYME Q-10) 100 mg cap capsule Take 200 mg by mouth once daily. - HYDROcodone-acetaminophen (NORCO) 5-325 mg per tablet Take 1 tablet by mouth every 8 hours as needed for pain. - diphenoxylate-atropine (LOMOTIL) 2.5-0.025 mg per tablet Take 1 tablet by mouth twice daily as needed for diarrhea for up to 90 days. - potassium chloride SR (MICRO-K) 10 mEq CR capsule Take 1 capsule by mouth once daily. - omeprazole (PRILOSEC) 40 mg capsule TAKE 1 CAPSULE DAILY - meclizine (ANTIVERT) 12.5 mg tab Take 1 tablet by mouth three times daily as needed (dizziness). - acetaminophen (TYLENOL ORAL) Take by mouth as needed. - cholecalciferol, vitamin D3, (VITAMIN D3 ORAL) Take 5,000 Units by mouth once daily. Problem List As Of Date 11/18/2022 Not (more content not included)... [facility] 11-18-2022 Note HNO ID: [id number] Author: Cami Ratliff MA Service: ? Author Type: Bliss Press Operator Type: Progress Notes Filed: 11/18/2022 1:39 PM Note Text: POPULATION HEALTH NAVIGATION OUTREACH Action/I no answer RoommateFitt message sent ANNUAL MEDICARE WELLNESS EXAN ADVANCE DIRECTIVE DISCUSSION Patient Identified by Name and : NO Outreach Outcome/Action Unable to reach patient: Phone number not valid / voicemail full Disruptor Beamhart message sent Did you use a PCP flex slot to schedule this appointment? N/A Reason for Outreach Care Gap or Scheduling/Wellness visits Payer: Payor: MEDICARE / Plan: MEDICARE A AND B / Product Type: Medicare / Care Gap Reviewed:: Annual Wellness visit Reminder: Reminder note to check Health Maintenance for items below Health Maintenance items due: COVID-19 VACCINE(1) Never done DTAP,TDAP,TD(1 - Tdap) due on 08/11/2007 ADVANCE DIRECTIVE DISCUSSION Never done Navigation Signature: Cami Ratliff MA November 18, 2022 9:05 AM [facility] 11-12-2022 Note HNO ID: [id number] Author: Altaf Katz APRN.CNP Service: ? Author Type: Nurse Practitioner Type: Progress Notes Filed: 11/12/2022 11:24 AM Note Text: Nontoxic-appearing female presents urgent care chief complaint left foot and ankle pain. Duration of symptoms today associated symptoms left ankle or foot pain. Patient states she had a syncopal episode when she was on the toilet resulting in falling off the toilet injuring her foot. Bruising and swelling noted to the foot. With patient's syncopal episode recommend patient be seen the ED for further evaluation care. Patient verbalized understand agrees with plan of care. Altaf Katz APRN.CNP [facility] 11-12-2022 History of Present illness Narrative Nontoxic-appearing female presents urgent care chief complaint left foot and ankle pain. Duration of symptoms today associated symptoms left ankle or foot pain. Patient states she had a syncopal episode when she was on the toilet resulting in falling off the toilet injuring her foot. Bruising and swelling noted to the foot. With patient's syncopal episode recommend patient be seen the ED for further evaluation care. Patient verbalized understand agrees with plan of care. Altaf Katz APRN.CNP documented in this encounter [facility] 11-01-2022 Note HNO ID: [id number] Author: Terrance Mccain MD Service: ? Author Type: Physician Type: Progress Notes Filed: 11/01/2022 11:31 AM Note Text: DISTANCE HEALTH VISIT This is a virtual visit using HIPAA compliant video platform. All issues as below were discussed and addressed but no physical exam was performed unless allowed by visual confirmation. If it was felt that the patient should be evaluated in clinic then they were directed there. Patient and/or parent(s) verbally consented to visit. I have communicated my name and active licensure. The patient's identity and physical location were verified at the time of this visit. Either the patient or their legal door to door sales representative has been informed of the risks and benefits of -- and alternatives to -- treatment through a remote evaluation and consents to proceed with the evaluation remotely. [facility] [place] Follow up visit History of Present Illness: Ms. Taylor is a 82 year old female following up for headaches. I last saw her on 06/18/2022. Briefly, she has a long history of migraines without aura that have responded well to Ajovy. She continues to do very well. She states that she had a temporary increase in headaches in August because she had to work more hours due to a colleague's illness. However, over the last week she has stopped working so much and things seem to be improving. Outside of that time period, she has been getting migraines once every 6 weeks and they are not debilitating. Maxalt aborts them consistently. She denies any side effects from Ajovy. She has no other complaints at this time. She will on rare occasion use Robaxin when her neck bothers her but overall her neck pain has been much better since she underwent facet blocks in February 2022. Current prophylactics: Ajovy Prior prophylactics: Amitriptyline, Aimovig, Topamax, sertraline, pregabalin, nortriptyline, gabapentin, atenolol, Flexeril Current abortives: Maxalt, Robaxin Prior abortives: Imitrex, Amerge, nabumetone, Fioricet The patient's prior records were reviewed including any lab testing, imaging, and procedures done since their last visit with me. Review of symptoms including constitutional, eyes, ENT, neck, respiratory, cardiovascular, GI, , musculoskeletal, hematologic, oncologic, endocrine, and psychiatric categories is unchanged. No new details in the family history or social history were offered by the patient. Vital Signs: There were no vitals taken for this visit. IMPRESSION: Migraines without aura, well controlled on Ajovy. Maxalt and Robaxin work well as abortives. We will stay the course. Follow-up in 6 months or earlier if needed. All questions were answered. PLAN/RECOMMENDATIONS: Continue Ajovy monthly Continue Maxalt and Robaxin as needed Follow-up in 6 months The duration of this appointment visit was 20 minutes of [id number] time with the patient. At least 50% of this time was spent in counseling, explanation of diagnosis, planning of further management, and coordination of care. Portions of this note have been composed using voice recognition and may contain sap technical developer errors Terrance Mccain M.D. [facility] Associate Staff Department of Neurology Referring provider: No referring provider defined for this encounter. Primary care provider: Kennye Atkins [address] [place] [address] [facility] 11-01-2022 History of Present illness Narrative DISTANCE HEALTH VISIT This is a virtual visit using HIPAA compliant video platform. All issues as below were discussed and addressed but no physical exam was performed unless allowed by visual confirmation. If it was felt that the patient should be evaluated in clinic then they were directed there. Patient and/or parent(s) verbally consented to visit. I have communicated my name and active licensure. The patient's identity and physical location were verified at the time of this visit. Either the patient or their legal door to door sales representative has been informed of the risks and benefits of -- and alternatives to -- treatment through a remote evaluation and consents to proceed with the evaluation remotely. [facility] [place] Follow up visit History of Present Illness: Ms. Taylor is a 82 year old female following up for headaches. I last saw her on 06/18/2022. Briefly, she has a long history of migraines without aura that have responded well to Ajovy. She continues to do very well. She states that she had a temporary increase in headaches in August because she had to work more hours due to a colleague's illness. However, over the last week she has stopped working so much and things seem to be improving. Outside of that time period, she has been getting migraines once every 6 weeks and they are not debilitating. Maxalt aborts them consistently. She denies any side effects from Ajovy. She has no other complaints at this time. She will on rare occasion use Robaxin when her neck bothers her but overall her neck pain has been much better since she underwent facet blocks in February 2022. Current prophylactics: Ajovy Prior prophylactics: Amitriptyline, Aimovig, Topamax, sertraline, pregabalin, nortriptyline, gabapentin, atenolol, Flexeril Current abortives: Maxalt, Robaxin Prior abortives: Imitrex, Amerge, nabumetone, Fioricet The patient's prior records were reviewed including any lab testing, imaging, and procedures done since their last visit with me. Review of symptoms including constitutional, eyes, ENT, neck, respiratory, cardiovascular, GI, , musculoskeletal, hematologic, oncologic, endocrine, and psychiatric categories is unchanged. No new details in the family history or social history were offered by the patient. Vital Signs: There were no vitals taken for this visit. IMPRESSION: Migraines without aura, well controlled on Ajovy. Maxalt and Robaxin work well as abortives. We will stay the course. Follow-up in 6 months or earlier if needed. All questions were answered. PLAN/RECOMMENDATIONS: Continue Ajovy monthly Continue Maxalt and Robaxin as needed Follow-up in 6 months The duration of this appointment visit was 20 minutes of [id number] time with the patient. At least 50% of this time was spent in counseling, explanation of diagnosis, planning of further management, and coordination of care. Portions of this note have been composed using voice recognition and may contain sap technical developer errors Terrance Mccain M.D. [facility] Staff Department of Neurology Referring provider: No referring provider defined for this encounter. Primary care provider: Kenney Atkins [address] [phone] documented in this encounter [facility] 08-21-2022 Miscellaneous Notes ABRAM: 06/18/2022 NOV: Visit date not found Orders Pended Riya Rodriguez MA Patient has been identified by name and date of : Yes Requested Prescriptions Pending Prescriptions Disp Refills fremanezumab-vfrm (AJOVY AUTOINJECTOR) 225 mg/1.5 mL auto-injector Sig: Inject 1.5 mL subcutaneously once every month. Do not shake. RX INSTRUCTIONS: Patient aware RX will be sent to pharmacy. No need to notify patient. Linda Martínez documented in this encounter [facility] 07-23-2022 Note HNO ID: [id number] Author: Kenney Atkins MD Service: ? Author Type: Physician Type: Progress Notes Filed: 07/23/2022 11:37 AM Note Text: Reason for Visit Patient presents with: Follow Up: 6 week follow up-BP Kendal Taylor is a 82 year old female who presents here today for Above Complaints.. Health Maintenance COVID-19 VACCINE(1) DTAP,TDAP,TD(1 - Tdap) ADVANCE DIRECTIVE DISCUSSION HPI Fatigue: Every visit we are grapple with her fatigue, she complains in the office of being really tired and with lack of energy, sometimes the way she reports seems like she never have good days in between but today we got a clearer understanding that there are periods of good days in between. Notes that last visit we treated for uri with zpak and for 5 weeks she felt good and beginning last week she started feeling Tired again. She was doing some spring cleaning and just did not have the time or energy to get that completed Today she feels run down. Notes that every 5/6 weeks she has a uri or uti or vaginal infection or so she thinks and is down. Thinks her immunity is lacking. And she would like to see how to build it up or atleast know what her problem really is. Currently she thinks she has a vaginal infection. She refuses to use therapy for having sleep apnea as she did not benefit from it. And her previous pcp stopped it since the machine aggravated migraines she was told to not use it. She does not want to michael the machine. After starting her on the spirololactone her bp is doing much better than before did not need the 50 mg but just the 25, and needs terminal manager medication to be sent for the same No problem-specific Assessment AND Plan notes found for this encounter. 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 12/24/2010 Carpal tunnel syndrome, right 06/05/2015 Contact dermatitis and other eczema, due to unspecified cause 05/14/2006 Diarrhea Diverticulosis of colon (without mention of hemorrhage) DIVERTICULOSIS OF COLON W/O BLEED 08/09/2005 Essential hypertension, benign Fracture of left distal radius 06/04/2011 Inguinal hernia without mention of obstruction or gangrene, unilateral or unspecified, (not specified as recurrent) 12/14/2013 Internal hemorrhoids without mention of complication 01/09/2011 IRRITABLE COLON 08/09/2005 Knee joint replacement status 04/04/2014 Macular edema 08/17/2010 Osteoarthritis OSTEOPOROSIS NOS 08/09/2005 Personal history of colonic polyps 11/11/2005 Colonoscopy - 11 October 2005 - Repeat in five years PURE HYPERCHOLESTEROLEM 08/09/2005 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- treated w/focal laser Right carpal tunnel syndrome 04/03/2015 Snoring Trigger ring finger of right hand 06/05/2015 Trochanteric bursitis of left hip 07/19/2016 Unspecified migraine Unspecified sleep apnea 2003 hypoxic sleep apnea Wound infection after surgery 03/07/2014 PAST SURGICAL HISTORY Procedure Laterality Date ANTERIOR COLPORRAPHY RPR CYSTOCELE W/CYSTO 2003 Cystocele repair ARTHROSCOPY KNEE DIAGNOSTIC W/WO SYNOVIAL BX SPX 2004 Arthroscopy, knee right ARTHROSCOPY KNEE DIAGNOSTIC W/WO SYNOVIAL BX SPX 1994 Arthroscopy, knee left and right COLONOSCOPY FLX DX W/COLLJ SPEC WHEN PFRMD 10/01/2002 Colonoscopy COLONOSCOPY FLX DX W/COLLJ SPEC WHEN PFRMD 01/09/2011 Colonoscopy COLONOSCOPY W/BIOPSY SINGLE/MULTIPLE 10/11/05 Diverticulosis CYSTOSCOPY 04/13/15 DESTRUCTION BENIGN LESIONS UP TO 14 10/16/06 Right infraorbital skin lesion ablation ESOPHAGOGASTRODUODENOSCOPY TRANSORAL DIAGNOSTIC 11/02/2018 EGD LAPAROSCOPY SURG CHOLECYSTECTOMY 1989' Cholecystectomy, lap PAST SURGICAL HISTORY OF 09/29 repair prolapse bladder PAST SURGICAL HISTORY OF eye laser surgery PAST SURGICAL HISTORY OF 1988 B/L bunion surgery - Dr. Solis - [facility] PAST SURGICAL HISTORY OF 02/02/2014 right TKA AND IANDD of right TKA on 02/23/14 PAST SURGICAL HISTORY OF 06/02/2015 right ring trigger finger release REVISE MEDIAN N/CARPAL TUNNEL SURG 06/02/2015 right carpal tunnel release SKIN BX, 1 LESION 03/10/12 Left cheek skin lesion bx TOTAL ABDOMINAL HYSTERECT W/WO RMVL TUBE OVARY 1980 FAMILY HISTORY Problem Relation Age of Onset Heart Mother Hypertension Mother other (Colitis) Mother Heart Father Diabetes Father DVT Father Diabetes Paternal Aunt Diabetes Paternal Uncle Hypertension Maternal Grandmother Heart Maternal Grandmother DVT Brother other (Colitis) Sister Social History Tobacco Use Smoking status: Never Smokeless tobacco: Never Vaping Use Vaping Use: Never used Substance Use Topics Alcohol use: No Drug use: No Past medical history, appointments, medications, allergies reviewed. Pertinent Lab/Diagnostic Studies are reviewed and discussed today Current Outpatient Medications: rizatriptan (MAXALT) 10 mg tablet colestipol (COLESTID) 1 gram tablet sucralfate (CARAFATE) 1 gram tablet (more content not included)... [facility] 07-23-2022 History of Present illness Narrative Reason for Visit Patient presents with: Follow Up: 6 week follow up-BP Kendal Taylor is a 82 year old female who presents here today for Above Complaints.. Health Maintenance COVID-19 VACCINE(1) DTAP,TDAP,TD(1 - Tdap) ADVANCE DIRECTIVE DISCUSSION HPI Fatigue: Every visit we are grapple with her fatigue, she complains in the office of being really tired and with lack of energy, sometimes the way she reports seems like she never have good days in between but today we got a clearer understanding that there are periods of good days in between. Notes that last visit we treated for uri with zpak and for 5 weeks she felt good and beginning last week she started feeling Tired again. She was doing some spring cleaning and just did not have the time or energy to get that completed Today she feels run down. Notes that every 5/6 weeks she has a uri or uti or vaginal infection or so she thinks and is down. Thinks her immunity is lacking. And she would like to see how to build it up or atleast know what her problem really is. Currently she thinks she has a vaginal infection. She refuses to use therapy for having sleep apnea as she did not benefit from it. And her previous pcp stopped it since the machine aggravated migraines she was told to not use it. She does not want to michael the machine. After starting her on the spirololactone her bp is doing much better than before did not need the 50 mg but just the 25, and needs terminal manager medication to be sent for the same No problem-specific Assessment & Plan notes found for this encounter. 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 12/24/2010 Carpal tunnel syndrome, right 06/05/2015 Contact dermatitis and other eczema, due to unspecified cause 05/14/2006 Diarrhea Diverticulosis of colon (without mention of hemorrhage) DIVERTICULOSIS OF COLON W/O BLEED 08/09/2005 Essential hypertension, benign Fracture of left distal radius 06/04/2011 Inguinal hernia without mention of obstruction or gangrene, unilateral or unspecified, (not specified as recurrent) 12/14/2013 Internal hemorrhoids without mention of complication 01/09/2011 IRRITABLE COLON 08/09/2005 Knee joint replacement status 04/04/2014 Macular edema 08/17/2010 Osteoarthritis OSTEOPOROSIS NOS 08/09/2005 Personal history of colonic polyps 11/11/2005 Colonoscopy - 11 October 2005 - Repeat in five years PURE HYPERCHOLESTEROLEM 08/09/2005 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- treated w/focal laser Right carpal tunnel syndrome 04/03/2015 Snoring Trigger ring finger of right hand 06/05/2015 Trochanteric bursitis of left hip 07/19/2016 Unspecified migraine Unspecified sleep apnea 2004 hypoxic sleep apnea Wound infection after surgery 03/07/2014 PAST SURGICAL HISTORY Procedure Laterality Date ANTERIOR COLPORRAPHY RPR CYSTOCELE W/CYSTO 2004 Cystocele repair ARTHROSCOPY KNEE DIAGNOSTIC W/WO SYNOVIAL BX SPX 2004 Arthroscopy, knee right ARTHROSCOPY KNEE DIAGNOSTIC W/WO SYNOVIAL BX SPX 1994 Arthroscopy, knee left and right COLONOSCOPY FLX DX W/COLLJ SPEC WHEN PFRMD 10/01/2002 Colonoscopy COLONOSCOPY FLX DX W/COLLJ SPEC WHEN PFRMD 01/09/2011 Colonoscopy COLONOSCOPY W/BIOPSY SINGLE/MULTIPLE 10/11/05 Diverticulosis CYSTOSCOPY 04/13/15 DESTRUCTION BENIGN LESIONS UP TO 14 10/16/06 Right infraorbital skin lesion ablation ESOPHAGOGASTRODUODENOSCOPY TRANSORAL DIAGNOSTIC 11/02/2018 EGD LAPAROSCOPY SURG CHOLECYSTECTOMY 1989' Cholecystectomy, lap PAST SURGICAL HISTORY OF 09/29 repair prolapse bladder PAST SURGICAL HISTORY OF eye laser surgery PAST SURGICAL HISTORY OF 1988 B/L bunion surgery - Dr. Solis - [facility] PAST SURGICAL HISTORY OF 02/02/2014 right TKA & I&D of right TKA on 02/23/14 PAST SURGICAL HISTORY OF 06/02/2015 right ring trigger finger release REVISE MEDIAN N/CARPAL TUNNEL SURG 06/02/2015 right carpal tunnel release SKIN BX, 1 LESION 03/10/12 Left cheek skin lesion bx TOTAL ABDOMINAL HYSTERECT W/WO RMVL TUBE OVARY 1980 FAMILY HISTORY Problem Relation Age of Onset Heart Mother Hypertension Mother other (Colitis) Mother Heart Father Diabetes Father DVT Father Diabetes Paternal Aunt Diabetes Paternal Uncle Hypertension Maternal Grandmother Heart Maternal Grandmother DVT Brother other (Colitis) Sister Social History Tobacco Use Smoking status: Never Smokeless tobacco: Never Vaping Use Vaping Use: Never used Substance Use Topics Alcohol use: No Drug use: No Past medical history, appointments, medications, allergies reviewed. Pertinent Lab/Diagnostic Studies are reviewed and discussed today Current Outpatient Medications: rizatriptan (MAXALT) 10 mg tablet colestipol (COLESTID) 1 gram tablet sucralfate (CARAFATE) 1 gram tablet methocarbamol (ROBAXIN) 750 mg tablet spironolactone (ALDACTONE) 50 mg tablet fluconazole (DIFLUCAN) 150 mg tablet sodium chloride (SALINE MIST) 0.65 % nasal spray ketoconazole (NIZORAL) 2 % shampoo conjugated estrogens (PREMARIN) vaginal cream nitrofurantoin macrocrystal (MACRODANTIN) 50 mg capsule riboflavin, vitamin B2, (VITAMIN B2) 100 mg tab MAGNESIUM ORAL coenzyme Q10 (COENZYME Q-10) 100 mg cap capsule HYDROcodone-acetaminophen (NORCO) 5-325 mg per tablet diphenoxylate-atropine (LOMOTIL) 2.5-0.025 mg per tablet potassium chloride SR (MICRO-K) 10 mEq CR capsule omeprazole (PRILOSEC) 40 mg capsule meclizine (ANTIVERT) 12.5 mg tab fremanezumab-vfrm (AJOVY AUTOINJECTOR) 225 mg/1.5 mL auto-injector acetaminophen (TYLENOL ORAL) cholecalciferol, vitamin D3, (VITAMIN D3 ORAL) Current Facility-Administered Medications: bupivacaine 7.5 mg injection (SENSORCAINE) Review of Systems CONSTITUTIONAL: No fevers, chills night sweats, unintended weight loss CARDIOVASCULAR: No chest pain, dyspnea, palpitations, orthopnea, PND, ankle edema. PULM: No dyspnea, unexplained cough. GI: No dysphagia/odynophagia, problematic reflux, constipation, diarrhea, changes in stool habits, hematochezia, melena. : No new urinary complaints, including dysuria, gross hematuria or pyuria. NEURO: No new balance problems, peripheral weakness/paresthesias or numbness of concern. Physical Exam BP 126/76 (BP Site: Left Arm, BP Position: Sitting, BP Cuff Size: Large Adult) Pulse 91 Temp 36.4 C (97.5 F) Resp 12 Ht 152.4 cm (5') Wt 70.8 kg (156 lb) SpO2 96% BMI 30.47 kg/m General appearance: Well appearing, alert, in no acute distress, well nourished. Skin: Skin color, texture, turgor normal, no suspicious rashes or lesions Head: Normocephalic, no masses, lesions, tenderness or abnormalities Eyes: Anicteric sclera. Pupils are equally round and reactive to light. Extraocular movements are intact. Lungs: Lungs clear to auscultation. No wheezing, rhonchi, rales Heart: RRR without murmur, gallop, or rubs. Extremities: No deformities, edema, skin discoloration, clubbing or cyanosis. Good capillary refill. ASSESSMENT/PLAN: 1. Recurrent infections - ICD9: 136.9, ICD10: B99.9 (primary diagnosis) - CONSULT TO IMMUNOLOGY 2. Primary hypertension - ICD9: 401.9, ICD10: I10 - good control - Recommended regular aerobic exercise. - Recommend home blood pressure monitoring, to bring results in on next visit - Goal of BP <130/80 3. Mixed hyperlipidemia - ICD9: 272.2, ICD10: E78.2 - good control - Continue current medication. 4. VARUN (obstructive sleep apnea) - ICD9: 327.23, ICD10: G47.33 Refuses to use the treatment for it. Kenney Atkins MD documented in this encounter [facility] 07-09-2022 Miscellaneous Notes Physician: Wan Call from patient requesting refill. Please E-Scribe Last OV: 06/18/2022 with Wan Future OV: Not Scheduled. Requested Prescriptions Pending Prescriptions Disp Refills rizatriptan (MAXALT) 10 mg tablet 10 tablet 3 Sig: Take 1 tablet by mouth as needed (at onset of headache. May repeat after 2 hours.). Do not exceed 30 mg per day. [facility]acy Name: [facility] documented in this encounter [facility] 06-07-2022 Miscellaneous Notes Left detailed message on [facility]. ----- Message from Kenney Atkins MD sent at 06/06/2022 8:06 AM EST ----- Please let her know that her thyroid, vit b12 and vit d which are normal Regards, Kenney Atkins MD documented in this encounter [facility] 06-04-2022 History of Present illness Narrative Reason for Visit Patient presents with: Follow Up: c/o dizziness when lays down, fatigue and swollen lower legs Kendal Taylor is a 82 year old female who presents here today for Above Complaints.. Health Maintenance COVID-19 VACCINE(1) DTAP,TDAP,TD(1 - Tdap) ADVANCE DIRECTIVE DISCUSSION DEPRESSION ASSESSMENT HPI HTN: Compliant with medications. Denies any chest pain, palpitations, or edema. No SOB. Doesn't check BP at home generally. Careful with diet to avoid salt, trying to eat more fruits and vegetables, exercises regularly. Today bp is on the higher side. Concerned that she is not able to loose weight. Says she is exercising daily. From reviewing what she is doing. Stretches and strengthening. She say she is doing exercise all the time but is referring to house work. Fatigue: Fell ill in March, not that she was fine before that but she was much much better. But after that, she feels much more fatigued than before. She has many medication allergies, so was put on chlorthalidone, her bp recent is not controlled. And she shows some preazotemia. She had been on macrobid , not sure if that contributes to the fatigue Echo showed diastolic dysfunction and she is on the water pill , spironolactone today was started. Lungs stable She thinks she has a sinus infection now, right below her eyes, and feels like stuff is draining from her throat. She wants an abx today. Says jose charles works She refuses to admit to having sleep apnea. Does not use it. No problem-specific Assessment & Plan notes found for this encounter. 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 12/24/2010 Carpal tunnel syndrome, right 06/05/2015 Contact dermatitis and other eczema, due to unspecified cause 05/14/2006 Diarrhea Diverticulosis of colon (without mention of hemorrhage) DIVERTICULOSIS OF COLON W/O BLEED 08/09/2005 Essential hypertension, benign Fracture of left distal radius 06/04/2011 Inguinal hernia without mention of obstruction or gangrene, unilateral or unspecified, (not specified as recurrent) 12/14/2013 Internal hemorrhoids without mention of complication 01/09/2011 IRRITABLE COLON 08/09/2005 Knee joint replacement status 04/04/2014 Macular edema 08/17/2010 Osteoarthritis OSTEOPOROSIS NOS 08/09/2005 Personal history of colonic polyps 11/11/2005 Colonoscopy - 11 October 2005 - Repeat in five years PURE HYPERCHOLESTEROLEM 08/09/2005 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- treated w/focal laser Right carpal tunnel syndrome 04/03/2015 Snoring Trigger ring finger of right hand 06/05/2015 Trochanteric bursitis of left hip 07/19/2016 Unspecified migraine Unspecified sleep apnea 2004 hypoxic sleep apnea Wound infection after surgery 03/07/2014 PAST SURGICAL HISTORY Procedure Laterality Date ANTERIOR COLPORRAPHY RPR CYSTOCELE W/CYSTO 2004 Cystocele repair ARTHROSCOPY KNEE DIAGNOSTIC W/WO SYNOVIAL BX SPX 2004 Arthroscopy, knee right ARTHROSCOPY KNEE DIAGNOSTIC W/WO SYNOVIAL BX SPX 1994 Arthroscopy, knee left and right COLONOSCOPY FLX DX W/COLLJ SPEC WHEN PFRMD 10/01/2002 Colonoscopy COLONOSCOPY FLX DX W/COLLJ SPEC WHEN PFRMD 01/09/2011 Colonoscopy COLONOSCOPY W/BIOPSY SINGLE/MULTIPLE 10/11/05 Diverticulosis CYSTOSCOPY 04/13/15 DESTRUCTION BENIGN LESIONS UP TO 14 10/16/06 Right infraorbital skin lesion ablation ESOPHAGOGASTRODUODENOSCOPY TRANSORAL DIAGNOSTIC 11/02/2018 EGD LAPAROSCOPY SURG CHOLECYSTECTOMY Cholecystectomy, lap PAST SURGICAL HISTORY OF 09/29 repair prolapse bladder PAST SURGICAL HISTORY OF eye laser surgery PAST SURGICAL HISTORY OF 1988 B/L bunion surgery - Dr. Solis - [facility] PAST SURGICAL HISTORY OF 02/02/2014 right TKA & I&D of right TKA on 02/23/14 PAST SURGICAL HISTORY OF 06/02/2015 right ring trigger finger release REVISE MEDIAN N/CARPAL TUNNEL SURG 06/02/2015 right carpal tunnel release SKIN BX, 1 LESION 03/10/12 Left cheek skin lesion bx TOTAL ABDOMINAL HYSTERECT W/WO RMVL TUBE OVARY 1980 FAMILY HISTORY Problem Relation Age of Onset Heart Mother Hypertension Mother other (Colitis) Mother Heart Father Diabetes Father DVT Father Diabetes Paternal Aunt Diabetes Paternal Uncle Hypertension Maternal Grandmother Heart Maternal Grandmother DVT Brother other (Colitis) Sister Social History Tobacco Use Smoking status: Never Smokeless tobacco: Never Vaping Use Vaping Use: Never used Substance Use Topics Alcohol use: No Drug use: No Past medical history, appointments, medications, allergies reviewed. Pertinent Lab/Diagnostic Studies are reviewed and discussed today Current Outpatient Medications: fluconazole (DIFLUCAN) 150 mg tablet colestipol (COLESTID) 1 gram tablet sodium chloride (SALINE MIST) 0.65 % nasal spray rizatriptan (MAXALT) 10 mg tablet ketoconazole (NIZORAL) 2 % shampoo conjugated estrogens (PREMARIN) vaginal cream nitrofurantoin macrocrystal (MACRODANTIN) 50 mg capsule riboflavin, vitamin B2, (VITAMIN B2) 100 mg tab MAGNESIUM ORAL coenzyme Q10 (COENZYME Q-10) 100 mg cap capsule HYDROcodone-acetaminophen (NORCO) 5-325 mg per tablet diphenoxylate-atropine (LOMOTIL) 2.5-0.025 mg per tablet potassium chloride SR (MICRO-K) 10 mEq CR capsule omeprazole (PRILOSEC) 40 mg capsule meclizine (ANTIVERT) 12.5 mg tab sucralfate (CARAFATE) 1 gram tablet chlorthalidone (HYGROTON) 25 mg tablet fremanezumab-vfrm (AJOVY AUTOINJECTOR) 225 mg/1.5 mL auto-injector methocarbamol (ROBAXIN) 750 mg tablet acetaminophen (TYLENOL ORAL) cholecalciferol, vitamin D3, (VITAMIN D3 ORAL) Current Facility-Administered Medications: bupivacaine 7.5 mg injection (SENSORCAINE) Review of Systems CONSTITUTIONAL: No fevers, chills night sweats, unintended weight loss CARDIOVASCULAR: No chest pain, dyspnea, palpitations, orthopnea, PND, ankle edema. PULM: No dyspnea, unexplained cough. GI: No dysphagia/odynophagia, problematic reflux, constipation, diarrhea, changes in stool habits, hematochezia, melena. : No new urinary complaints, including dysuria, gross hematuria or pyuria. NEURO: No new balance problems, peripheral weakness/paresthesias or numbness of concern. Physical Exam BP 140/90 (BP Site: Left Arm, BP Position: Sitting, BP Cuff Size: Large Adult) Pulse 86 Temp 36.5 C (97.7 F) Resp 12 Ht 152.4 cm (5') Wt 69.4 kg (153 lb) SpO2 98% BMI 29.88 kg/m General appearance: Well appearing, alert, in no acute distress, well nourished. Skin: Skin color, texture, turgor normal, no suspicious rashes or lesions Head: Normocephalic, no masses, lesions, tenderness or abnormalities Eyes: Anicteric sclera. Pupils are equally round and reactive to light. Extraocular movements are intact. Lungs: Lungs clear to auscultation. No wheezing, rhonchi, rales Heart: RRR without murmur, gallop, or rubs. Extremities: No deformities, edema, skin discoloration, clubbing or cyanosis. Good capillary refill. ASSESSMENT/PLAN: 1. Uncontrolled hypertension - ICD9: 401.9, ICD10: I10 (primary diagnosis) Recheck bp was normal 2. Other fatigue - ICD9: 780.79, ICD10: R53.83 Unclear reason 3. Vitamin D deficiency - ICD9: 268.9, ICD10: E55.9 Checking level s 4. Sinusitis, unspecified chronicity, unspecified location - ICD9: 473.9, ICD10: J32.9 She always needs a zpak to get rid of infections 5. Recurrent UTI - ICD9: 599.0, ICD10: N39.0 On chronic macrobid. 6. Mixed hyperlipidemia - ICD9: 272.2, ICD10: E78.2 - good control - Continue current medication. Kenney Atkins MD documented in this encounter [facility] 05-17-2022 History of Present illness Narrative Kendal Taylor is a 82 year old female who presents for problem visit vulvar lump for several month(s). HPI: pt is c/o of a lump on the left labia area. She states that it has been there for several months and it is now getting larger. She denies any pain or drainage from the area. OB History T0 L6 SAB1 IAB0 Ectopic0 Multiple0 Live Births0 Support Services Manager History LMP: Hysterectomy Age at Menarche: Age at First : Age at Menopause: Support Services Manager History Comments: Sexual Activity: Yes; Male; seldom Contraception: No contraception data on record 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 12/24/2010 Carpal tunnel syndrome, right 06/05/2015 Contact dermatitis and other eczema, due to unspecified cause 05/14/2006 Diarrhea Diverticulosis of colon (without mention of hemorrhage) DIVERTICULOSIS OF COLON W/O BLEED 08/09/2005 Essential hypertension, benign Fracture of left distal radius 06/04/2011 Inguinal hernia without mention of obstruction or gangrene, unilateral or unspecified, (not specified as recurrent) 12/14/2013 Internal hemorrhoids without mention of complication 01/09/2011 IRRITABLE COLON 08/09/2005 Knee joint replacement status 04/04/2014 Macular edema 08/17/2010 Osteoarthritis OSTEOPOROSIS NOS 08/09/2005 Personal history of colonic polyps 11/11/2005 Colonoscopy - 11 October 2005 - Repeat in five years PURE HYPERCHOLESTEROLEM 08/09/2005 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- treated w/focal laser Right carpal tunnel syndrome 04/03/2015 Snoring Trigger ring finger of right hand 06/05/2015 Trochanteric bursitis of left hip 07/19/2016 Unspecified migraine Unspecified sleep apnea 2004 hypoxic sleep apnea Wound infection after surgery 03/07/2014 PAST SURGICAL HISTORY Procedure Laterality Date ANTERIOR COLPORRAPHY RPR CYSTOCELE W/CYSTO 2004 Cystocele repair ARTHROSCOPY KNEE DIAGNOSTIC W/WO SYNOVIAL BX SPX 2004 Arthroscopy, knee right ARTHROSCOPY KNEE DIAGNOSTIC W/WO SYNOVIAL BX SPX 1994 Arthroscopy, knee left and right COLONOSCOPY FLX DX W/COLLJ SPEC WHEN PFRMD 10/01/2002 Colonoscopy COLONOSCOPY FLX DX W/COLLJ SPEC WHEN PFRMD 01/09/2011 Colonoscopy COLONOSCOPY W/BIOPSY SINGLE/MULTIPLE 10/11/05 Diverticulosis CYSTOSCOPY 04/13/15 DESTRUCTION BENIGN LESIONS UP TO 14 10/16/06 Right infraorbital skin lesion ablation ESOPHAGOGASTRODUODENOSCOPY TRANSORAL DIAGNOSTIC 11/02/2018 EGD LAPAROSCOPY SURG CHOLECYSTECTOMY Cholecystectomy, lap PAST SURGICAL HISTORY OF 09/29 repair prolapse bladder PAST SURGICAL HISTORY OF eye laser surgery PAST SURGICAL HISTORY OF 1988 B/L bunion surgery - Dr. Solis - [facility] PAST SURGICAL HISTORY OF 02/02/2014 right TKA & I&D of right TKA on 02/23/14 PAST SURGICAL HISTORY OF 06/02/2015 right ring trigger finger release REVISE MEDIAN N/CARPAL TUNNEL SURG 06/02/2015 right carpal tunnel release SKIN BX, 1 LESION 03/10/12 Left cheek skin lesion bx TOTAL ABDOMINAL HYSTERECT W/WO RMVL TUBE OVARY 1980 FAMILY HISTORY Problem Relation Age of Onset Heart Mother Hypertension Mother other (Colitis) Mother Heart Father Diabetes Father DVT Father Diabetes Paternal Aunt Diabetes Paternal Uncle Hypertension Maternal Grandmother Heart Maternal Grandmother DVT Brother other (Colitis) Sister Social History Tobacco Use Smoking status: Never Smokeless tobacco: Never Vaping Use Vaping Use: Never used Substance Use Topics Alcohol use: No Drug use: No Current Outpatient Medications Medication Sig fluconazole (DIFLUCAN) 150 mg tablet Take 1 tablet by mouth Every 3 Days. colestipol (COLESTID) 1 gram tablet Take 3 tablets by mouth once daily. sodium chloride (SALINE MIST) 0.65 % nasal spray Use 1 Sully in the nose as needed for cold/allergy symptoms. rizatriptan (MAXALT) 10 mg tablet Take 1 tablet by mouth as needed (at onset of headache. May repeat after 2 hours.). Do not exceed 30 mg per day. ketoconazole (NIZORAL) 2 % shampoo Apply to scalp rash every other day until clear- Lather and rinse and then lather 2nd time and leave set on hair for 5 min and rinse again. (Patient taking differently: once daily as needed. Apply to scalp rash every other day until clear- Lather and rinse and then lather 2nd time and leave set on hair for 5 min and rinse again.) conjugated estrogens (PREMARIN) vaginal cream Apply finger-tip amount as directed in handout ( no applicator needed) daily nitrofurantoin macrocrystal (MACRODANTIN) 50 mg capsule Take 1 capsule by mouth once daily. riboflavin, vitamin B2, (VITAMIN B2) 100 mg tab Take 200 mg by mouth twice daily. MAGNESIUM ORAL Take 500 mg by mouth daily at bedtime. coenzyme Q10 (COENZYME Q-10) 100 mg cap capsule Take 200 mg by mouth once daily. HYDROcodone-acetaminophen (NORCO) 5-325 mg per tablet Take 1 tablet by mouth every 8 hours as needed for pain. diphenoxylate-atropine (LOMOTIL) 2.5-0.025 mg per tablet Take 1 tablet by mouth twice daily as needed for diarrhea for up to 90 days. potassium chloride SR (MICRO-K) 10 mEq CR capsule Take 1 capsule by mouth once daily. omeprazole (PRILOSEC) 40 mg capsule TAKE 1 CAPSULE DAILY meclizine (ANTIVERT) 12.5 mg tab Take 1 tablet by mouth three times daily as needed (dizziness). sucralfate (CARAFATE) 1 gram tablet Take 1 tablet by mouth twice daily. chlorthalidone (HYGROTON) 25 mg tablet Take 0.5 tablets by mouth once daily. fremanezumab-vfrm (flyRuby.comOVY AUTOINJECTOR) 225 mg/1.5 mL auto-injector Inject 1.5 mL subcutaneously once every month. Do not shake. methocarbamol (ROBAXIN) 750 mg tablet Take 1 tablet by mouth twice daily as needed. acetaminophen (TYLENOL ORAL) Take by mouth as needed. cholecalciferol, vitamin D3, (VITAMIN D3 ORAL) Take 5,000 Units by mouth once daily. sucralfate (CARAFATE) 1 gram tablet Take 1 tablet by mouth twice daily. (Patient not taking: Reported on 05/17/2022) chlorthalidone (HYGROTON) 25 mg tablet Take 0.5 tablets by mouth once daily. (Patient not taking: Reported on 05/17/2022) Current Facility-Administered Medications Medication Dose Route Frequency bupivacaine 7.5 mg injection (SENSORCAINE) 3 mL OTHER As Directed Allergies As of Date: 05/17/2022 Allergen Noted Reaction JAZMIN INHIBITORS 05/13/2003 Other: See Comments ADVAIR DISKUS [FLUTICASONE PROPIO*04/04/2011 Intolerance ALBUTEROL 04/04/2011 Intolerance AMITRIPTYLINE 02/23/2015 Mental Status Change AMOXICILLIN 05/13/2003 Hives BACTRIM [SULFAMETHOXAZOLE-TRIMETH* 011 Rash and Other: See Comments CAFFEINE 05/13/2003 Mental Status Change CODEINE GI Upset and Other: See Comments DOXYCYCLINE HYCLATE 08/10/2007 Hives HYDANTOINS 05/13/2003 Other: See Comments LEVAQUIN [LEVOFLOXACIN] 10/13/2018 Intolerance PNEUMOVAX 23 [PNEUMOCOCCAL 23-SANTOSH*08/09/2005 Other: See Comments ENHGYKX-SUY-SCY REDUCTASE INHIBIT*03/22/2015 Other: See Comments ULTRAM [TRAMADOL HCL] 02/21/2014 Other: See Comments Fully Assessed 05/17/2022 REVIEW OF SYSTEMS Expanded ROS: N/A Allergies and current medication updated:Yes EXAM: BP 132/70 Wt 152 lb (68.9kg) GENERAL: pleasant, female in no apparent distress HEENT: Normocephalic, atraumatic, and no lesions CHEST: Normal inspiratory effort PELVIC: external genitalia normal, normal Bartholin's glands, urethra, [place]'s glands, physiologic discharge present, normal appearing perineal body and perianal region, +on the left outer labia majora there is a 1 mm occulusion cyst NEURO: alert and oriented x3,exam grossly non-focal ASSESSMENT/PLAN: 1. Vulvar lump - ICD9: 625.8, ICD10: N90.89 No need for any treatment at this time, if there is any change and the lump becomes larger or painful return to the office for removal Nellie Santiago APRN.CNP Medical Decision Making: Problems: Low: Acute, uncomplicated illness or injury Risk: Low: Low risk from testing/treatment Medical Decision Making Level: 3 - Low documented in this encounter [facility] 05-15-2022 Miscellaneous Notes ----- Message from Kenney Atkins MD sent at 05/15/2022 6:29 AM EST ----- Will address in upcoming office visit documented in this encounter [facility] 05-13-2022 Miscellaneous Notes Sent her the fluconazole. Regards, Kenney Atkins MD Pt reports she was recently on antibiotics for a sinus infection. She reports she has a vaginal yeast infection and asking if provider would order her treatment? Requesting Macy Arreola. Please call pt with update. Thank you. documented in this encounter [facility] 05-02-2022 Miscellaneous Notes Next appointment 05/21/22 Patient has been identified by name and date of : Yes Last office visit in this department: 02/12/2022 RX INSTRUCTIONS: Patient aware RX will be sent to pharmacy. No need to notify patient. Patient phones requesting refills as follows: Pays less if she gets 90 day supply plus 3 refills at the pharmacy. Requested Prescriptions Pending Prescriptions Disp Refills colestipol (COLESTID) 1 gram tablet 90 tablet 3 Sig: Take 3 tablets by mouth once daily. Please review and advise. Michell Canales documented in this encounter [facility] 04-29-2022 History of Present illness Narrative Patient presents with: Sinus Infection,frequent/recurring: X2 weeks Seen 04/23 for same HPI: Feeling sick for 3 weeks. Seen 1 week ago and tested negative for COVID and influenza. She feels no better and symptoms are moving to her chest. She worked a couple days last week, but does not feel well enough to work currently. Positive symptoms: Cough, Chest tightness, Sore throat, Sinus pressure, Nasal Congestion, Headache, Rhinorrhea (had blood today), Post nasal drainage, Body Aches, Malaise, Fatigue, Negative symptoms: Nausea, Vomiting, Diarrhea, OTC: Tylenol, omnicef 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 12/24/2010 Carpal tunnel syndrome, right 06/05/2015 Contact dermatitis and other eczema, due to unspecified cause 05/14/2006 Diarrhea Diverticulosis of colon (without mention of hemorrhage) DIVERTICULOSIS OF COLON W/O BLEED 08/09/2005 Essential hypertension, benign Fracture of left distal radius 06/04/2011 Inguinal hernia without mention of obstruction or gangrene, unilateral or unspecified, (not specified as recurrent) 12/14/2013 Internal hemorrhoids without mention of complication 01/09/2011 IRRITABLE COLON 08/09/2005 Knee joint replacement status 04/04/2014 Macular edema 08/17/2010 Osteoarthritis OSTEOPOROSIS NOS 08/09/2005 Personal history of colonic polyps 11/11/2005 Colonoscopy - 11 October 2005 - Repeat in five years PURE HYPERCHOLESTEROLEM 08/09/2005 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 sodium chloride (SALINE MIST) 0.65 % nasal spray Use 1 Sully in the nose as needed for cold/allergy symptoms. rizatriptan (MAXALT) 10 mg tablet Take 1 tablet by mouth as needed (at onset of headache. May repeat after 2 hours.). Do not exceed 30 mg per day. ketoconazole (NIZORAL) 2 % shampoo Apply to scalp rash every other day until clear- Lather and rinse and then lather 2nd time and leave set on hair for 5 min and rinse again. conjugated estrogens (PREMARIN) vaginal cream Apply finger-tip amount as directed in handout ( no applicator needed) daily nitrofurantoin macrocrystal (MACRODANTIN) 50 mg capsule Take 1 capsule by mouth once daily. sucralfate (CARAFATE) 1 gram tablet Take 1 tablet by mouth twice daily. riboflavin, vitamin B2, (VITAMIN B2) 100 mg tab Take 200 mg by mouth twice daily. MAGNESIUM ORAL Take 500 mg by mouth daily at bedtime. coenzyme Q10 (COENZYME Q-10) 100 mg cap capsule Take 200 mg by mouth once daily. HYDROcodone-acetaminophen (NORCO) 5-325 mg per tablet Take 1 tablet by mouth every 8 hours as needed for pain. diphenoxylate-atropine (LOMOTIL) 2.5-0.025 mg per tablet Take 1 tablet by mouth twice daily as needed for diarrhea for up to 90 days. chlorthalidone (HYGROTON) 25 mg tablet Take 0.5 tablets by mouth once daily. potassium chloride SR (MICRO-K) 10 mEq CR capsule Take 1 capsule by mouth once daily. omeprazole (PRILOSEC) 40 mg capsule TAKE 1 CAPSULE DAILY meclizine (ANTIVERT) 12.5 mg tab Take 1 tablet by mouth three times daily as needed (dizziness). colestipol (COLESTID) 1 gram tablet Take 3 tablets by mouth once daily. sucralfate (CARAFATE) 1 gram tablet Take 1 tablet by mouth twice daily. chlorthalidone (HYGROTON) 25 mg tablet Take 0.5 tablets by mouth once daily. fremanezumab-vfrm (AJOVY AUTOINJECTOR) 225 mg/1.5 mL auto-injector Inject 1.5 mL subcutaneously once every month. Do not shake. methocarbamol (ROBAXIN) 750 mg tablet Take 1 tablet by mouth twice daily as needed. acetaminophen (TYLENOL ORAL) Take by mouth as needed. cholecalciferol, vitamin D3, (VITAMIN D3 ORAL) Take 5,000 Units by mouth once daily. Current Facility-Administered Medications Medication Dose Route Frequency bupivacaine 7.5 mg injection (SENSORCAINE) 3 mL OTHER As Directed ALLERGIES: ALLERGIES Allergen Reactions Jazmin Inhibitors Other: See Comments listril, zestril; makes headaches worse Advair Diskus [Flut* Intolerance sore mouth Albuterol Intolerance anxiety,jitters,tachycardia Amitriptyline Mental Status Change sedation with high doses only. Takes regularly Amoxicillin Hives HIVES Bactrim [Sulfametho* Rash, Other: See Comments fever from medication Caffeine Mental Status Change NAUSEA, MIGRAINES excedrin plus Mountain Dew but can tolerate low dose caffeine seizure 1980 Codeine GI Upset, Other: See Comments NAUSEA, MIGRAINES Doxycycline Hyclate Hives hives Hydantoins Other: See Comments Dilantin; does not remember reaction Levaquin [Levofloxa* Intolerance Dizziness at 500mg dose Pneumovax 23 [Pneum* Other: See Comments had one in 1997,, had reaction; arm swelled up for about 8 months Pisdxqo-Ixz-Qlw Red* Other: See Comments pt declines-not work Ultram [Tramadol Hc* Other: See Comments headache VITALS: BP 124/84 Pulse 104 Temp 36.4 C (97.6 F) Resp 18 Wt 67.8 kg (149 lb 6.4 oz) SpO2 98% BMI 29.18 kg/m PHYSICAL EXAM: GEN: mildly ill and uncomfortable appearing HEENT: PERRL, EOMI, conjunctiva clear Ears: canals clear. TMs without erythema, bulge, or effusion Sinuses: tender frontal sinus, tender maxillary sinuses Throat: moist mucous membranes, mild erythema, no exudate Neck: supple, no thyromegaly, no lymphadenopathy HEART: regular rate and rhythm, no murmurs LUNGS: coughs consistently with deep inspiration, expiratory wheezes, no crackles, no increased WOB ASSESSMENT/PLAN: 1. Viral illness - ICD9: 079.99, ICD10: B34.9 (primary diagnosis) 2. Wheezing - ICD9: 786.07, ICD10: R06.2 Lingering vs multiple illness. Continue omnicef for sinusitis. Add - PREDNISONE 10 MG TABLET taper Retest for - COVID WITH FLUA+B, ROUTINE Work note provided. Petey Campos MD documented in this encounter [facility] 04-24-2022 Miscellaneous Notes Left detailed message on a secured voicemail. Violet Ac Please notify of negative influenza and covid test. Continue comfort measures for symptoms as you would for a cold. Any worsening symptoms follow up with PCP or ER. Nicole Webster APRN.JACKLYN documented in this encounter [facility] 04-23-2022 History of Present illness Narrative Subjective HPI Kendal presents today with two weeks hx of sinus congestion, throat irritation, ears are popping, and dry cough, she has not had a fever, she is eating and drinking n/v/d. Her is sick as well. Blood pressure 138/90, pulse 96, temperature 37 C (98.6 F), resp. rate 18, weight 68.5 kg (151 lb), SpO2 100 %. 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 12/24/2010 Carpal tunnel syndrome, right 06/05/2015 Contact dermatitis and other eczema, due to unspecified cause 05/14/2006 Diarrhea Diverticulosis of colon (without mention of hemorrhage) DIVERTICULOSIS OF COLON W/O BLEED 08/09/2005 Essential hypertension, benign Fracture of left distal radius 06/04/2011 Inguinal hernia without mention of obstruction or gangrene, unilateral or unspecified, (not specified as recurrent) 12/14/2013 Internal hemorrhoids without mention of complication 01/09/2011 IRRITABLE COLON 08/09/2005 Knee joint replacement status 04/04/2014 Macular edema 08/17/2010 Osteoarthritis OSTEOPOROSIS NOS 08/09/2005 Personal history of colonic polyps 11/11/2005 Colonoscopy - 11 October 2005 - Repeat in five years PURE HYPERCHOLESTEROLEM 08/09/2005 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- treated w/focal laser Right carpal tunnel syndrome 04/03/2015 Snoring Trigger ring finger of right hand 06/05/2015 Trochanteric bursitis of left hip 07/19/2016 Unspecified migraine Unspecified sleep apnea 2004 hypoxic sleep apnea Wound infection after surgery 03/07/2014 PAST SURGICAL HISTORY Procedure Laterality Date ANTERIOR COLPORRAPHY RPR CYSTOCELE W/CYSTO 2004 Cystocele repair ARTHROSCOPY KNEE DIAGNOSTIC W/WO SYNOVIAL BX SPX 2004 Arthroscopy, knee right ARTHROSCOPY KNEE DIAGNOSTIC W/WO SYNOVIAL BX SPX 1994 Arthroscopy, knee left and right COLONOSCOPY FLX DX W/COLLJ SPEC WHEN PFRMD 10/01/2002 Colonoscopy COLONOSCOPY FLX DX W/COLLJ SPEC WHEN PFRMD 01/09/2011 Colonoscopy COLONOSCOPY W/BIOPSY SINGLE/MULTIPLE 10/11/05 Diverticulosis CYSTOSCOPY 04/13/15 DESTRUCTION BENIGN LESIONS UP TO 14 10/16/06 Right infraorbital skin lesion ablation ESOPHAGOGASTRODUODENOSCOPY TRANSORAL DIAGNOSTIC 11/02/2018 EGD LAPAROSCOPY SURG CHOLECYSTECTOMY 1989' Cholecystectomy, lap PAST SURGICAL HISTORY OF 09/29 repair prolapse bladder PAST SURGICAL HISTORY OF eye laser surgery PAST SURGICAL HISTORY OF 1988 B/L bunion surgery - Dr. Solis - [facility] PAST SURGICAL HISTORY OF 02/02/2014 right TKA & I&D of right TKA on 02/23/14 PAST SURGICAL HISTORY OF 06/02/2015 right ring trigger finger release REVISE MEDIAN N/CARPAL TUNNEL SURG 06/02/2015 right carpal tunnel release SKIN BX, 1 LESION 03/10/12 Left cheek skin lesion bx TOTAL ABDOMINAL HYSTERECT W/WO RMVL TUBE OVARY 1980 ALLERGIES Jazmin Inhibitors, Advair Diskus [Fluticasone Propion-Salmeterol], Albuterol, Amitriptyline, Amoxicillin, Bactrim [Sulfamethoxazole-Trimethoprim], Caffeine, Codeine, Doxycycline Hyclate, Hydantoins, Levaquin [Levofloxacin], Pneumovax 23 [Pneumococcal 23-Santosh Ps Vaccine], Keqpqgt-Zdn-Xfm Reductase Inhibitors, and Ultram [Tramadol Hcl] MEDICATIONS rizatriptan (MAXALT) 10 mg tablet^Take 1 tablet by mouth as needed (at onset of headache. May repeat after 2 hours.). Do not exceed 30 mg per day.^Disp: 10 tablet^Rfl: 3 ketoconazole (NIZORAL) 2 % shampoo^Apply to scalp rash every other day until clear- Lather and rinse and then lather 2nd time and leave set on hair for 5 min and rinse again.^Disp: 120 mL^Rfl: 2 conjugated estrogens (PREMARIN) vaginal cream^Apply finger-tip amount as directed in handout ( no applicator needed) daily^Disp: 30 g^Rfl: 4 nitrofurantoin macrocrystal (MACRODANTIN) 50 mg capsule^Take 1 capsule by mouth once daily.^Disp: 90 capsule^Rfl: 3 sucralfate (CARAFATE) 1 gram tablet^Take 1 tablet by mouth twice daily.^Disp: 60 tablet^Rfl: 0 riboflavin, vitamin B2, (VITAMIN B2) 100 mg tab^Take 200 mg by mouth twice daily.^Disp: ^Rfl: MAGNESIUM ORAL^Take 500 mg by mouth daily at bedtime.^Disp: ^Rfl: coenzyme Q10 (COENZYME Q-10) 100 mg cap capsule^Take 200 mg by mouth once daily.^Disp: ^Rfl: HYDROcodone-acetaminophen (NORCO) 5-325 mg per tablet^Take 1 tablet by mouth every 8 hours as needed for pain.^Disp: 30 tablet^Rfl: 0 diphenoxylate-atropine (LOMOTIL) 2.5-0.025 mg per tablet^Take 1 tablet by mouth twice daily as needed for diarrhea for up to 90 days.^Disp: 90 tablet^Rfl: 1 chlorthalidone (HYGROTON) 25 mg tablet^Take 0.5 tablets by mouth once daily.^Disp: 90 tablet^Rfl: 3 potassium chloride SR (MICRO-K) 10 mEq CR capsule^Take 1 capsule by mouth once daily.^Disp: 90 capsule^Rfl: 3 omeprazole (PRILOSEC) 40 mg capsule^TAKE 1 CAPSULE DAILY^Disp: 90 capsule^Rfl: 3 meclizine (ANTIVERT) 12.5 mg tab^Take 1 tablet by mouth three times daily as needed (dizziness).^Disp: 90 tablet^Rfl: 1 colestipol (COLESTID) 1 gram tablet^Take 3 tablets by mouth once daily.^Disp: 90 tablet^Rfl: 3 sucralfate (CARAFATE) 1 gram tablet^Take 1 tablet by mouth twice daily.^Disp: 120 tablet^Rfl: 3 chlorthalidone (HYGROTON) 25 mg tablet^Take 0.5 tablets by mouth once daily.^Disp: 90 tablet^Rfl: 3 fremanezumab-vfrm (AJOVY AUTOINJECTOR) 225 mg/1.5 mL auto-injector^Inject 1.5 mL subcutaneously once every month. Do not shake.^Disp: 3 Pen^Rfl: 3 methocarbamol (ROBAXIN) 750 mg tablet^Take 1 tablet by mouth twice daily as needed.^Disp: 60 tablet^Rfl: 3 acetaminophen (TYLENOL ORAL)^Take by mouth as needed. ^Disp: ^Rfl: cholecalciferol, vitamin D3, (VITAMIN D3 ORAL)^Take 5,000 Units by mouth once daily.^Disp: ^Rfl: FAMILY HISTORY Problem Relation Age of Onset Heart Mother Hypertension Mother other (Colitis) Mother Heart Father Diabetes Father DVT Father Diabetes Paternal Aunt Diabetes Paternal Uncle Hypertension Maternal Grandmother Heart Maternal Grandmother DVT Brother other (Colitis) Sister Social History Tobacco Use Smoking status: Never Smokeless tobacco: Never Vaping Use Vaping Use: Never used Substance Use Topics Alcohol use: No Drug use: No Review of Systems HENT: Positive for congestion, sinus pain and sore throat. Respiratory: Positive for cough (dry). Negative for hemoptysis, sputum production, shortness of breath and wheezing. All other systems reviewed and are negative. Objective Physical Exam Constitutional: General: She is not in acute distress. Appearance: Normal appearance. HENT: Head: Normocephalic and atraumatic. Comments: Sinus tenderness with palpation of maxillary area Right Ear: Tympanic membrane, ear canal and external ear normal. Left Ear: Tympanic membrane, ear canal and external ear normal. Nose: Congestion present. Mouth/Throat: Mouth: Mucous membranes are moist. Pharynx: No oropharyngeal exudate or posterior oropharyngeal erythema. Eyes: Extraocular Movements: Extraocular movements intact. Pupils: Pupils are equal, round, and reactive to light. Cardiovascular: Rate and Rhythm: Normal rate and regular rhythm. Pulses: Normal pulses. Heart sounds: Normal heart sounds. Pulmonary: Effort: Pulmonary effort is normal. No respiratory distress. Breath sounds: Normal breath sounds. No stridor. No wheezing, rhonchi or rales. Chest: Chest wall: No tenderness. Abdominal: General: Abdomen is flat. Palpations: Abdomen is soft. Musculoskeletal: General: Normal range of motion. Cervical back: Normal range of motion. Lymphadenopathy: Cervical: No cervical adenopathy. Skin: General: Skin is warm and dry. Neurological: General: No focal deficit present. Mental Status: She is alert and oriented to person, place, and time. Psychiatric: Mood and Affect: Mood normal. ASSESSMENT/PLAN: 1. URI, acute - ICD9: 465.9, ICD10: J06.9 (primary diagnosis) - Discussed viral etiology and rationale for treatment. - Symptomatic treatment with prn analgesia - Supportive care with fluids and rest - COVID WITH FLUA+B, ROUTINE 2. Bacterial sinusitis - ICD9: 473.9, 041.9, ICD10: J32.9, B96.89 - Will begin treatment with Omnicef due to multiple allergies, hives with pcn years ago agree to try Saline nasal spray Vaporizer at bedside If not improving or worsening follow up is needed Increase fluids Margaux Aaron APRN.S[employer] documented in this encounter [facility] 04-05-2022 Miscellaneous Notes ABRAM: 01/10/2022 NOV: 05/24/2022 Orders Pended Riya Rodriguez MA Patient has been identified by name and date of : Yes Requested Prescriptions Pending Prescriptions Disp Refills rizatriptan (MAXALT) 10 mg tablet 10 tablet 3 Sig: Take 1 tablet by mouth as needed (at onset of headache. May repeat after 2 hours.). Do not exceed 30 mg per day. RX INSTRUCTIONS: Patient aware RX will be sent to pharmacy. No need to notify patient. Imtiaz Christopher Pss documented in this encounter [facility] 02-12-2022 History of Present illness Narrative Reason for Visit Patient presents with: Recheck: 3 month Sinus Problem: 10 days Immunizations: Flu vaccination Kendal Taylor is a 81 year old female who presents here today for Above Complaints.. Health Maintenance COVID-19 VACCINE(1) BP CONTROLLED (<130/80) DTAP,TDAP,TD(1 - Tdap) ADVANCE DIRECTIVE DISCUSSION DEPRESSION ASSESSMENT INFLUENZA(1) HPI For recurrent uti, she is on Estrogen and Macrodantin 50 mg daily. Estrogen alone did not work. No uti in 3 months with the combination. Sees [facility] for trigger finger and mucinous cyst , was drained but it is coming back She is still working at [employer] 4 days a week and one days she works 7 hours. Has been having sinus infection and pressure in the throat, it has been just green, for the past 12 days, Pain behind the maxillary and the frontal sinuses. She often gets this at this time year and she needs an abx. She denies having sob or much cough, mild She was at the spine doctor, teresa rodriguez recently. Patient would like to get some relief from them. Needs her labs recheck No problem-specific Assessment & Plan notes found for this encounter. 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 12/24/2010 Carpal tunnel syndrome, right 06/05/2015 Contact dermatitis and other eczema, due to unspecified cause 05/14/2006 Diarrhea Diverticulosis of colon (without mention of hemorrhage) DIVERTICULOSIS OF COLON W/O BLEED 08/09/2005 Essential hypertension, benign Fracture of left distal radius 06/04/2011 Inguinal hernia without mention of obstruction or gangrene, unilateral or unspecified, (not specified as recurrent) 12/14/2013 Internal hemorrhoids without mention of complication 01/09/2011 IRRITABLE COLON 08/09/2005 Knee joint replacement status 04/04/2014 Macular edema 08/17/2010 Osteoarthritis OSTEOPOROSIS NOS 08/09/2005 Personal history of colonic polyps 11/11/2005 Colonoscopy - 11 October 2005 - Repeat in five years PURE HYPERCHOLESTEROLEM 08/09/2005 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- treated w/focal laser Right carpal tunnel syndrome 04/03/2015 Snoring Trigger ring finger of right hand 06/05/2015 Trochanteric bursitis of left hip 07/19/2016 Unspecified migraine Unspecified sleep apnea 2004 hypoxic sleep apnea Wound infection after surgery 03/07/2014 PAST SURGICAL HISTORY Procedure Laterality Date ANTERIOR COLPORRAPHY RPR CYSTOCELE W/CYSTO 2004 Cystocele repair ARTHROSCOPY KNEE DIAGNOSTIC W/WO SYNOVIAL BX SPX 2004 Arthroscopy, knee right ARTHROSCOPY KNEE DIAGNOSTIC W/WO SYNOVIAL BX SPX 1994 Arthroscopy, knee left and right COLONOSCOPY FLX DX W/COLLJ SPEC WHEN PFRMD 10/01/2002 Colonoscopy COLONOSCOPY FLX DX W/COLLJ SPEC WHEN PFRMD 01/09/2011 Colonoscopy COLONOSCOPY W/BIOPSY SINGLE/MULTIPLE 10/11/05 Diverticulosis CYSTOSCOPY 04/13/15 DESTRUCTION BENIGN LESIONS UP TO 14 10/16/06 Right infraorbital skin lesion ablation ESOPHAGOGASTRODUODENOSCOPY TRANSORAL DIAGNOSTIC 11/02/2018 EGD LAPAROSCOPY SURG CHOLECYSTECTOMY 1989' Cholecystectomy, lap PAST SURGICAL HISTORY OF 09/29 repair prolapse bladder PAST SURGICAL HISTORY OF eye laser surgery PAST SURGICAL HISTORY OF 1988 B/L bunion surgery - Dr. Solis - [facility] PAST SURGICAL HISTORY OF 02/02/2014 right TKA & I&D of right TKA on 02/23/14 PAST SURGICAL HISTORY OF 06/02/2015 right ring trigger finger release REVISE MEDIAN N/CARPAL TUNNEL SURG 06/02/2015 right carpal tunnel release SKIN BX, 1 LESION 03/10/12 Left cheek skin lesion bx TOTAL ABDOMINAL HYSTERECT W/WO RMVL TUBE OVARY 1980 FAMILY HISTORY Problem Relation Age of Onset Heart Mother Hypertension Mother other (Colitis) Mother Heart Father Diabetes Father DVT Father Diabetes Paternal Aunt Diabetes Paternal Uncle Hypertension Maternal Grandmother Heart Maternal Grandmother DVT Brother other (Colitis) Sister Social History Tobacco Use Smoking status: Never Smokeless tobacco: Never Vaping Use Vaping Use: Never used Substance Use Topics Alcohol use: No Drug use: No Past medical history, appointments, medications, allergies reviewed. Pertinent Lab/Diagnostic Studies are reviewed and discussed today Current Outpatient Medications: conjugated estrogens (PREMARIN) vaginal cream nitrofurantoin macrocrystal (MACRODANTIN) 50 mg capsule sucralfate (CARAFATE) 1 gram tablet riboflavin, vitamin B2, (VITAMIN B2) 100 mg tab MAGNESIUM ORAL coenzyme Q10 (COENZYME Q-10) 100 mg cap capsule HYDROcodone-acetaminophen (NORCO) 5-325 mg per tablet rizatriptan (MAXALT) 10 mg tablet diphenoxylate-atropine (LOMOTIL) 2.5-0.025 mg per tablet potassium chloride SR (MICRO-K) 10 mEq CR capsule omeprazole (PRILOSEC) 40 mg capsule meclizine (ANTIVERT) 12.5 mg tab colestipol (COLESTID) 1 gram tablet sucralfate (CARAFATE) 1 gram tablet fremanezumab-vfrm (AJOVY AUTOINJECTOR) 225 mg/1.5 mL auto-injector methocarbamol (ROBAXIN) 750 mg tablet acetaminophen (TYLENOL ORAL) cholecalciferol, vitamin D3, (VITAMIN D3 ORAL) chlorthalidone (HYGROTON) 25 mg tablet chlorthalidone (HYGROTON) 25 mg tablet Current Facility-Administered Medications: perflutren lipid microspheres 1.3 mL in NaCl (PF) 0.9% 10 mL injection (DEFINITY) sodium chloride 0.9 % (flush) 10 mL (BD POSIFLUSH) bupivacaine 7.5 mg injection (SENSORCAINE) Review of Systems CONSTITUTIONAL: No fevers, chills night sweats, unintended weight loss CARDIOVASCULAR: No chest pain, dyspnea, palpitations, orthopnea, PND, ankle edema. PULM: No dyspnea, unexplained cough. GI: No dysphagia/odynophagia, problematic reflux, constipation, diarrhea, changes in stool habits, hematochezia, melena. : No new urinary complaints, including dysuria, gross hematuria or pyuria. NEURO: No new balance problems, peripheral weakness/paresthesias or numbness of concern. Physical Exam BP 132/80 Pulse 77 Temp 36.3 C (97.4 F) Resp 14 Wt 71.7 kg (158 lb) SpO2 (!) 9% BMI 30.86 kg/m General appearance: Well appearing, alert, in no acute distress, well nourished. Skin: Skin color, texture, turgor normal, no suspicious rashes or lesions Head: Normocephalic, no masses, lesions, tenderness or abnormalities Eyes: Anicteric sclera. Pupils are equally round and reactive to light. Extraocular movements are intact. Lungs: Lungs clear to auscultation. No wheezing, rhonchi, rales Heart: RRR without murmur, gallop, or rubs. Extremities: No deformities, edema, skin discoloration, clubbing or cyanosis. Good capillary refill. ASSESSMENT/PLAN: 1. Acute non-recurrent maxillary sinusitis - ICD9: 461.0, ICD10: J01.00 (primary diagnosis) - Will begin treatment with as per antibiotic as written, see orders - CLINDAMYCIN HCL 300 MG CAPSULE Discussed risk of c diff. 2. Need for influenza vaccination - ICD9: V04.81, ICD10: Z23 - INFLUENZA SEASONAL QUADRIVALENT HIGH DOSE AGE 65+ 3. Mixed hyperlipidemia - ICD9: 272.2, ICD10: E78.2 Does not tolerate statins, we could try her on Zetia in the future - LIPID PANEL BASIC - BASIC METABOLIC PNL - CBC + DIFF 4. Encounter for screening for diabetes mellitus - ICD9: V77.1, ICD10: Z13.1 - CBC + DIFF Kenney Atkins MD documented in this encounter [facility] 02-08-2022 Miscellaneous Notes She should not take the Hyder Narcotic Pain Meds while on Diflucan it can interact. Jennifer Ledesma, MPAS, MT, PA-C Pt advised and verbalizes understanding. Janine Bo MA documented in this encounter [facility] 01-25-2022 Miscellaneous Notes Patient reports [facility] tells her they cannot get sucralfate right now, something to do with the animal health technician. Advised her to ask pcp to send 30 day supply to [facility]. Pended. Patient ask office to phone her when Rx is sent. documented in this encounter [facility] 01-17-2022 Miscellaneous Notes Received voicemail 01-17-22 at 2:39 PM. I'm Kendal Taylor. My date is [birth year]. I've seen Teresa Rodriguez on January 10 and he wanted me to get an appointment with Dr. Morro Otto and I have not been able to get an appointment it's going to have to be through your office. Thank you. My phone number is [phone]. Forwarded to Pain PSS pool to contact patient to schedule. DOROTHY Ho, RN January 17, 2022 3:35 PM documented in this encounter [facility] 01-10-2022 History of Present illness Narrative Images from the original note were not included. Teresa Rodriguez PA-C [facility] [address] [id number] 01/10/2022 ASSESSMENT AND PLAN: Assessment : Encounter Diagnosis ICD-10-CM 1. Cervical spondylosis without myelopathy M47.812 CONSULT TO SPINE INTERVENTION 2. Arthropathy of cervical facet joint M47.812 CONSULT TO SPINE INTERVENTION Discussion: Ms. Taylor Is a very pleasant 81-year-old female here for evaluation of neck and shoulder pain primarily on the left side. She has had 6 visits of supervised PT ending in June of 2020 as noted below. She is on a daily HEP. Had a bad reaction with eye symptoms after a prior cervical facet injection series. The injections helped the neck pain She ended up in the emergency department for the same symptoms in November 2021. She demonstrates essentially normal physical exam with excellent strength, normal reflexes, normal mobilization and gait and stance. Her primary issue is neck pain today and there is diminished motion in lateral rotation bilaterally. She has fairly normal flexion and extension. There is crepitus with motion. There is pain on palpation at the back of her neck musculature. She brought in in November 26, [address] scan that shows disc degeneration primarily at C6-7 and a little lesser degree at C2-3. There does not appear to be instability or any acute findings noted. Central cervical canal appears to be normal caliber. I think she would likely still benefit from cervical facet blocks. The reaction that she described to her last set of cervical facets is quite unusual and I am not sure I can connect the dots between those injections and her right ocular symptoms. She is willing to retry injections. I would start with MBB's and eventually consider RFA's if symptoms return and persist Plan : REFERAL FOR SERVICES: -Consult to Pain Anesthesia: The purpose will be for both diagnostic and therapeutic purposes. The patient is instructed to pay attention to the amount of pain during the anesthetic phase, and during that time to perform the activities that typically exacerbate the pain to determine what percentage of relief is gained. The patient is instructed that the steroid phase of the injection may take up to a week or more to provide relief, and to pay attention to the percentage of relief obtained during the steroid phase. If the steroid phase gives significant pain relief, the procedure can be repeated. MEDICATIONS: -Current medication regimen is appropriate for this problem. ACTIVITY RECOMMENDATIONS: -The patient is encouraged to avoid bed rest and maintain normal activity. -The patient is encouraged to exercise regularly as tolerated. FOLLOW-UP: -The patient is instructed to return as needed. ADDITIONAL DISCUSSION: -We discussed the difference between hurt vs harm as it relates to chronic pain. This document has been created with the use of voice recognition technology. It may contain inaccuracies: (e.g. misspellings, inaccurate syntax or word sense) that have escaped review. Time spent: 45 minutes today with this patient visit. This includes felr-[id number] time, review of chart records regarding conservative care history, spine-pertinent imaging, and communication/care coordination with referring provider, problem-specific history-taking and counseling/education regarding treatment options. cc: SELF Phone: N/A Fax: Results of consultation to be transmitted via electronic medical record for those providers who practice within [facility] or with access to [facility] via [facility], or via letter. ################################# ################################# ###### CHIEF COMPLAINT: Patient is here for the neck pain, left shoulder. Pain in the neck triggers her migraines. Has the neck pain for years but in the last 1.5 months ago had very bad pain for the 3 weeks. Level of the pain at this moment is 3/10, dull/ ache. 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 This was completed 1 years ago. The therapy provided a notable amount of relief. Spinal Injections: She has gotten prior spinal injections. Cervical facet injection /BILATERAL Cervical Facet Block(s) (Medial Branch) @ C2-3, C3-4, C4-5 with Fluoroscopic Guidance - BILATERAL Other: None Current Outpatient Medications Medication Sig Dispense Refill riboflavin, vitamin B2, (VITAMIN B-2) 100 mg tab Take 200 mg by mouth twice daily. MAGNESIUM ORAL Take 500 mg by mouth daily at bedtime. coenzyme Q10 (COENZYME Q-10) 100 mg cap capsule Take 200 mg by mouth once daily. HYDROcodone-acetaminophen (NORCO) 5-325 mg per tablet Take 1 tablet by mouth every 8 hours as needed for pain. 30 tablet 0 rizatriptan (MAXALT) 10 mg tablet Take 1 tablet by mouth as needed (at onset of headache. May repeat after 2 hours.). Do not exceed 30 mg per day. 10 tablet 3 diphenoxylate-atropine (LOMOTIL) 2.5-0.025 mg per tablet Take 1 tablet by mouth twice daily as needed for diarrhea for up to 90 days. 90 tablet 1 mometasone (ELOCON) 0.1 % cream Apply 1 application to affected area once daily. 80 g 0 chlorthalidone (HYGROTON) 25 mg tablet Take 0.5 tablets by mouth once daily. 90 tablet 3 potassium chloride SR (MICRO-K) 10 mEq CR capsule Take 1 capsule by mouth once daily. 90 capsule 3 omeprazole (PRILOSEC) 40 mg capsule TAKE 1 CAPSULE DAILY 90 capsule 3 conjugated estrogens (PREMARIN) vaginal cream Apply finger-tip amount as directed in handout ( no applicator needed) daily 30 g 4 nitrofurantoin macrocrystal (MACRODANTIN) 50 mg capsule Take 1 capsule by mouth daily at bedtime. 30 capsule 2 meclizine (ANTIVERT) 12.5 mg tab Take 1 tablet by mouth three times daily as needed (dizziness). 90 tablet 1 colestipol (COLESTID) 1 gram tablet Take 3 tablets by mouth once daily. 90 tablet 3 sucralfate (CARAFATE) 1 gram tablet Take 1 tablet by mouth twice daily. 120 tablet 3 fremanezumab-vfrm (flyRuby.comOVTubis AUTOINJECTOR) 225 mg/1.5 mL auto-injector Inject 1.5 mL subcutaneously once every month. Do not shake. 3 Pen 3 methocarbamol (ROBAXIN) 750 mg tablet Take 1 tablet by mouth twice daily as needed. 60 tablet 3 acetaminophen (TYLENOL ORAL) Take by mouth as needed. cholecalciferol, vitamin D3, (VITAMIN D3 ORAL) Take 5,000 Units by mouth. chlorthalidone (HYGROTON) 25 mg tablet Take 0.5 tablets by mouth once daily. (Patient not taking: Reported on 01/10/2022) 90 tablet 3 Current Facility-Administered Medications Medication Dose Route Frequency Provider Last Rate Last Admin perflutren lipid microspheres 1.3 mL in NaCl (PF) 0.9% 10 mL injection (DEFINITY) INTRAVENOUS DIRECTED PRN Seth Pérez APRN.SCREW MACHINE HAND sodium chloride 0.9 % (flush) 10 mL (BD POSIFLUSH) 10 mL INTRAVENOUS DIRECTED PRN Seth Pérez APRN.SCREW MACHINE HAND bupivacaine 7.5 mg injection (SENSORCAINE) 3 mL OTHER As Directed Clinton Aguirre MD 7.5 mg at 11/30/19 1331 Allergies: Jazmin Inhibitors, Advair Diskus [Fluticasone Propion-Salmeterol], Albuterol, Amitriptyline, Amoxicillin, Bactrim [Sulfamethoxazole-Trimethoprim], Caffeine, Codeine, Doxycycline Hyclate, Hydantoins, Levaquin [Levofloxacin], Pneumovax 23 [Pneumococcal 23-Santosh Ps Vaccine], Yffiugr-Nts-Moi Reductase Inhibitors, and Ultram [Tramadol Hcl] 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 12/24/2010 Carpal tunnel syndrome, right 06/05/2015 Contact dermatitis and other eczema, due to unspecified cause 05/14/2006 Diarrhea Diverticulosis of colon (without mention of hemorrhage) DIVERTICULOSIS OF COLON W/O BLEED 08/09/2005 Essential hypertension, benign Fracture of left distal radius 06/04/2011 Inguinal hernia without mention of obstruction or gangrene, unilateral or unspecified, (not specified as recurrent) 12/14/2013 Internal hemorrhoids without mention of complication 01/09/2011 IRRITABLE COLON 08/09/2005 Knee joint replacement status 04/04/2014 Macular edema 08/17/2010 Osteoarthritis OSTEOPOROSIS NOS 08/09/2005 Personal history of colonic polyps 11/11/2005 Colonoscopy - 11 October 2005 - Repeat in five years PURE HYPERCHOLESTEROLEM 08/09/2005 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- treated w/focal laser Right carpal tunnel syndrome 04/03/2015 Snoring Trigger ring finger of right hand 06/05/2015 Trochanteric bursitis of left hip 07/19/2016 Unspecified migraine Unspecified sleep apnea 2004 hypoxic sleep apnea Wound infection after surgery 03/07/2014 PAST SURGICAL HISTORY Procedure Laterality Date ANTERIOR COLPORRAPHY RPR CYSTOCELE W/CYSTO 2004 Cystocele repair ARTHROSCOPY KNEE DIAGNOSTIC W/WO SYNOVIAL BX SPX 2004 Arthroscopy, knee right ARTHROSCOPY KNEE DIAGNOSTIC W/WO SYNOVIAL BX SPX 1994 Arthroscopy, knee left and right COLONOSCOPY FLX DX W/COLLJ SPEC WHEN PFRMD 10/01/2002 Colonoscopy COLONOSCOPY FLX DX W/COLLJ SPEC WHEN PFRMD 01/09/2011 Colonoscopy COLONOSCOPY W/BIOPSY SINGLE/MULTIPLE 10/11/05 Diverticulosis CYSTOSCOPY 04/13/15 DESTRUCTION BENIGN LESIONS UP TO 14 10/16/06 Right infraorbital skin lesion ablation ESOPHAGOGASTRODUODENOSCOPY TRANSORAL DIAGNOSTIC 11/02/2018 EGD LAPAROSCOPY SURG CHOLECYSTECTOMY 1989' Cholecystectomy, lap PAST SURGICAL HISTORY OF 09/29 repair prolapse bladder PAST SURGICAL HISTORY OF eye laser surgery PAST SURGICAL HISTORY OF 1988 B/L bunion surgery - Dr. Solis - [facility] PAST SURGICAL HISTORY OF 02/02/2014 right TKA & I&D of right TKA on 02/23/14 PAST SURGICAL HISTORY OF 06/02/2015 right ring trigger finger release REVISE MEDIAN N/CARPAL TUNNEL SURG 06/02/2015 right carpal tunnel release SKIN BX, 1 LESION 03/10/12 Left cheek skin lesion bx TOTAL ABDOMINAL HYSTERECT W/WO RMVL TUBE OVARY 1980 Social History Tobacco Use Smoking status: Never Smokeless tobacco: Never Vaping Use Vaping Use: Never used Substance Use Topics Alcohol use: No Drug use: No FAMILY HISTORY Problem Relation Age of Onset Heart Mother Hypertension Mother other (Colitis) Mother Heart Father Diabetes Father DVT Father Diabetes Paternal Aunt Diabetes Paternal Uncle Hypertension Maternal Grandmother Heart Maternal Grandmother DVT Brother other (Colitis) Sister PHYSICAL EXAM: Blood pressure 153/67, pulse 80, height 151.1 cm (4' 11.5 ), weight 72.1 kg (158 lb 14.4 oz), SpO2 99 %. Body mass index is 31.56 kg/m . General: Patient is a(n) good historian. The patient appears approximately the recorded age and is sitting comfortably in the examining room. The patient is average height in stature and is overweight in appearance. This individual has no difficulty arising from a sitting position and does have difficulty acquiring a full, upright position when standing. Station and Gait: mildly flexed posture and antalgic gait leaning forward and short strides, but age-appropriate MENTAL STATUS EXAMINATION: The patient was neatly dressed and well groomed. The patient had excellent eye contact and rapport was easy to establish. The patient appeared to be alert and oriented in all spheres. The patient's overall medical judgment appeared to be good.The patient's motivation for treatment was judged based on today's encounter to be excellent. SPINE: Cervical Lordosis: Increased Thoracic Kyphosis: Increased Skin: Normal-no rashes, bruises, lesions, or signs of localized trauma., Skin color, texture and turgor normal. Paraspinal atrophy: No Range of Motion: Flexion: 1 fingerbreadths from chin to chest Pain: No Extension: within normal limits Rotation: Right: limited with pain Left: limited with pain PALPATION TENDERNESS: Moderate tenderness at: cervical spine and shoulders/trapezius Hyperesthesia present: No Regional symptoms present: No Increased pain with axial loading: No Distraction: Normal Pain responses: appropriate NEUROLOGIC EXAM: Requires verbal cues to minimize cog-wheel or give-way resistance: No MOTOR: Deltoid R: 5/5 L: 5/5 Biceps R: 5/5 L: 5/5 Wrist Extension R: 5/5 L: 5/5 Wrist Flexion R: 5/5 L: 5/5 Triceps R: 5/5 L: 5/5 Optometrist President/Practice Owner R: 5/5 L: 5/5 Interossei R: 5/5 L: 5/5 SENSATION to Light Touch: Cervical: C2-T2 symmetrically normal. Thoracic: T1-L1 symmetrically normal. Spurling's: Reproduces axial pain only. REFLEXES: Upper Extremity: All Upper Extremity reflexes symmetrically normal. Lower Extremity: All Lower Extremity reflexes symmetrically normal. Bright's: Negative bilaterally. Clonus: R: 0 beats/Normal L: 0 beats/Normal Babinski Sign Present: Negative bilaterally. IMAGING STUDIES: See discussion above documented in this encounter [facility] 12-18-2021 Miscellaneous Notes Patient calls and is notified that prescription was sent to [facility]. Ramandeep Barry RN Patient states her script for Hyder 5/325 was sent to [facility] on 12/14. Asking for script to be cancelled at [facility] and sent to [facility] pharmacy in [place] please. Please call patient once script sent to [facility], per request. Thank you. documented in this encounter [facility] 12-14-2021 History of Present illness Narrative Reason for Visit Patient presents with: Same Day Appointment: neck pain Kendal Taylor is a 81 year old female who presents here today for Above Complaints. Health Maintenance COVID-19 VACCINE(1) BP CONTROLLED (<130/80) DTAP,TDAP,TD(1 - Tdap) DEPRESSION SCREENING ADVANCE DIRECTIVE DISCUSSION HPI Has a pinched nerves in the back, is seeing Dr. Shin in [place]. She would like some narco, she saw Dr. Burr who found the pinched nerve and is on robaxin. Patient would like medication to go to [facility] in [place]. No problem-specific Assessment & Plan notes found for this encounter. 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 12/24/2010 Carpal tunnel syndrome, right 06/05/2015 Contact dermatitis and other eczema, due to unspecified cause 05/14/2006 Diarrhea Diverticulosis of colon (without mention of hemorrhage) DIVERTICULOSIS OF COLON W/O BLEED 08/09/2005 Essential hypertension, benign Fracture of left distal radius 06/04/2011 Inguinal hernia without mention of obstruction or gangrene, unilateral or unspecified, (not specified as recurrent) 12/14/2013 Internal hemorrhoids without mention of complication 01/09/2011 IRRITABLE COLON 08/09/2005 Knee joint replacement status 04/04/2014 Macular edema 08/17/2010 Osteoarthritis OSTEOPOROSIS NOS 08/09/2005 Personal history of colonic polyps 11/11/2005 Colonoscopy - 11 October 2005 - Repeat in five years PURE HYPERCHOLESTEROLEM 08/09/2005 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- treated w/focal laser Right carpal tunnel syndrome 04/03/2015 Snoring Trigger ring finger of right hand 06/05/2015 Trochanteric bursitis of left hip 07/19/2016 Unspecified migraine Unspecified sleep apnea 2004 hypoxic sleep apnea Wound infection after surgery 03/07/2014 PAST SURGICAL HISTORY Procedure Laterality Date ANTERIOR COLPORRAPHY RPR CYSTOCELE W/CYSTO 2004 Cystocele repair ARTHROSCOPY KNEE DIAGNOSTIC W/WO SYNOVIAL BX SPX 2004 Arthroscopy, knee right ARTHROSCOPY KNEE DIAGNOSTIC W/WO SYNOVIAL BX SPX 1994 Arthroscopy, knee left and right COLONOSCOPY FLX DX W/COLLJ SPEC WHEN PFRMD 10/01/2002 Colonoscopy COLONOSCOPY FLX DX W/COLLJ SPEC WHEN PFRMD 01/09/2011 Colonoscopy COLONOSCOPY W/BIOPSY SINGLE/MULTIPLE 10/11/05 Diverticulosis CYSTOSCOPY 04/13/15 DESTRUCTION BENIGN LESIONS UP TO 14 10/16/06 Right infraorbital skin lesion ablation ESOPHAGOGASTRODUODENOSCOPY TRANSORAL DIAGNOSTIC 11/02/2018 EGD LAPAROSCOPY SURG CHOLECYSTECTOMY Cholecystectomy, lap PAST SURGICAL HISTORY OF 09/29 repair prolapse bladder PAST SURGICAL HISTORY OF eye laser surgery PAST SURGICAL HISTORY OF 1988 B/L bunion surgery - Dr. Solis - [facility] PAST SURGICAL HISTORY OF 02/02/2014 right TKA & I&D of right TKA on 02/23/14 PAST SURGICAL HISTORY OF 06/02/2015 right ring trigger finger release REVISE MEDIAN N/CARPAL TUNNEL SURG 06/02/2015 right carpal tunnel release SKIN BX, 1 LESION 03/10/12 Left cheek skin lesion bx TOTAL ABDOMINAL HYSTERECT W/WO RMVL TUBE OVARY 1981 FAMILY HISTORY Problem Relation Age of Onset Heart Mother Hypertension Mother other (Colitis) Mother Heart Father Diabetes Father DVT Father Diabetes Paternal Aunt Diabetes Paternal Uncle Hypertension Maternal Grandmother Heart Maternal Grandmother DVT Brother other (Colitis) Sister Social History Tobacco Use Smoking status: Never Smokeless tobacco: Never Vaping Use Vaping Use: Never used Substance Use Topics Alcohol use: No Drug use: No Past medical history, appointments, medications, allergies reviewed. Pertinent Lab/Diagnostic Studies are reviewed and discussed today Current Outpatient Medications: rizatriptan (MAXALT) 10 mg tablet diphenoxylate-atropine (LOMOTIL) 2.5-0.025 mg per tablet mometasone (ELOCON) 0.1 % cream chlorthalidone (HYGROTON) 25 mg tablet potassium chloride SR (MICRO-K) 10 mEq CR capsule omeprazole (PRILOSEC) 40 mg capsule conjugated estrogens (PREMARIN) vaginal cream nitrofurantoin macrocrystal (MACRODANTIN) 50 mg capsule meclizine (ANTIVERT) 12.5 mg tab colestipol (COLESTID) 1 gram tablet sucralfate (CARAFATE) 1 gram tablet chlorthalidone (HYGROTON) 25 mg tablet fremanezumab-vfrm (AJOVY AUTOINJECTOR) 225 mg/1.5 mL auto-injector methocarbamol (ROBAXIN) 750 mg tablet chlorthalidone (HYGROTON) 25 mg tablet acetaminophen (TYLENOL ORAL) cholecalciferol, vitamin D3, (VITAMIN D3 ORAL) Current Facility-Administered Medications: perflutren lipid microspheres 1.3 mL in NaCl (PF) 0.9% 10 mL injection (DEFINITY) sodium chloride 0.9 % (flush) 10 mL (BD POSIFLUSH) bupivacaine 7.5 mg injection (SENSORCAINE) Review of Systems CONSTITUTIONAL: No fevers, chills night sweats, unintended weight loss CARDIOVASCULAR: No chest pain, dyspnea, palpitations, orthopnea, PND, ankle edema. PULM: No dyspnea, unexplained cough. GI: No dysphagia/odynophagia, problematic reflux, constipation, diarrhea, changes in stool habits, hematochezia, melena. : No new urinary complaints, including dysuria, gross hematuria or pyuria. NEURO: No new balance problems, peripheral weakness/paresthesias or numbness of concern. Physical Exam BP 138/72 (BP Site: Right Arm, BP Position: Sitting, BP Cuff Size: Large Adult) Pulse 68 Temp 36.6 C (97.8 F) Resp 12 Ht 149.9 cm (4' 11 ) Wt 69.9 kg (154 lb) SpO2 98% BMI 31.10 kg/m General appearance: Well appearing, alert, in no acute distress, well nourished. Skin: Skin color, texture, turgor normal, no suspicious rashes or lesions Head: Normocephalic, no masses, lesions, tenderness or abnormalities Eyes: Anicteric sclera. Pupils are equally round and reactive to light. Extraocular movements are intact. ASSESSMENT/PLAN: 1. Neck pain - ICD9: 723.1, ICD10: M54.2 (primary diagnosis) Started her on the vicodin til she sees the pain management doctor - HYDROCODONE 5 MG-ACETAMINOPHEN 325 MG TABLET 2. Primary hypertension - ICD9: 401.9, ICD10: I10 Not very controlled Kenney Atkins MD documented in this encounter [facility] 12-04-2021 Miscellaneous Notes Spoke with patient and advised per Dr.Feldman andres to see local specialist or [facility] realty loan specialist. Currently she is doing better and will not be scheduling either. Spoke with patient. She went to [facility] ED for c/o pain into the left shoulder and arm. Pain in the neck shooting straight up her head and down her right leg. Left arm and right leg became heavy feeling She was told by the ED that the issues is cervical disc related and to see a spine physician. She was give Hyder. Cervical spine CT only showed : Mild cervical spondylosis with no acute osseous abnormality. I advised we will need the disc with actual images. She was referred to a realty loan specialist there - Dr.Jeffery Hines She requests your recommendations. Aware will be out until Friday Kendal Taylor is calling Terrance Mccain MD today with concern regarding Patient Question.Patient states she was seen in ER for pain, thought she was having stroke or heart attack. But it was the disc in neck. They did testing: ct scan and xray. And she was given morphine. Patient was told to follow up with spine doctor and needed some guidance from you on what to do? She states the pain is still there, and it radiates down her neck, and shoulder.none of her medication is working. Please advise. Patient has been identified by name and birthdate. Duration of symptoms: N/A Person calling: self Call patient at: at home [phone] (home) [phone] (cell) Was an appointment scheduled: No Closing statement: Results or non-symptom based questions: Thank you for calling [facility], your call will be returned within the next business day. Shandra Morfin Pss documented in this encounter [facility] 11-30-2021 Miscellaneous Notes ABRAM:11/01/2021 NOV: Visit date not found Urine Panel: No results found for: UQCANN, UQBNZL, FYR2GZG, UQAMPH, UQMAMP, UQBUPRE, UQNORBUP, UQMTHD, UQEDDP, UQTRAM, UQDTRM, UQFNTL, UQNFTL, UQCODE, UQMORP, UQDCDN, UQHCOD, UQOXYC, UQHMOR, UQOXYM, UQCREA, UQPH, UQSPGR, UQOXID, UQSPQ Orders Pended Riya Rodriguez MA Patient has been identified by name and date of : Yes Pending Prescriptions Disp Refills RIZATRIPTAN 10 MG TABLET 10 tablet 3 Sig: Take 1 tablet by mouth as needed (at onset of headache. May repeat after 2 hours.). Do not exceed 30 mg per day. JAYNE: No RX INSTRUCTIONS: Patient requesting a call when RX is approved and sent to the pharmacy. Please call patient at: home Shandra Morfin Pss documented in this encounter [facility] 11-21-2021 Miscellaneous Notes PDMP website checked and validated. All prescriptions have been APPROPRIATELY filled. No suspicious activity was identified. 11/21/2021 by Lida Noel APRN.JACKLYN patient is out of medication Patient has been identified by name and date of : Yes Patient phones for refill(s): Pending Prescriptions Disp Refills DIPHENOXYLATE-ATROPINE 2.5 MG-0.025 MG TABLET 90 tablet 1 Sig: Take 1 tablet by mouth twice daily as needed for diarrhea for up to 90 days. SARTHAK Class: C-V JAYNE: No Date of last office visit in primary care: 11/13/2021 Last 2 Encounter Wt Readings: Date: Wt: 11/13/2021 70.8 kg (156 lb) 11/09/2021 71.7 kg (158 lb) Previous labs/tests for medication: Not applicable Please advise. Thank you. Kiah Kidd LPN documented in this encounter [facility] 11-13-2021 History of Present illness Narrative Reason for Visit Patient presents with: Established Patient: 4 month follow up- med refills Kendal Taylor is a 81 year old female who presents here today for Above Complaints.. Health Maintenance COVID-19 VACCINE(1) BP CONTROLLED (<130/80) DEPRESSION SCREENING ADVANCE DIRECTIVE DISCUSSION HPI Recurrent uti: having a uti currently, cipro for 7 days and then will take daily macrobid, 50 mgs for 3 months, She complains right now of esophageal irritation, discomfort in the stomach, same symptoms she had last time with h pylori. She refuses to use a sleep machine, as it escalated her migraines. No problem-specific Assessment & Plan notes found for this encounter. 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 12/24/2010 Carpal tunnel syndrome, right 06/05/2015 Contact dermatitis and other eczema, due to unspecified cause 05/14/2006 Diarrhea Diverticulosis of colon (without mention of hemorrhage) DIVERTICULOSIS OF COLON W/O BLEED 08/09/2005 Essential hypertension, benign Fracture of left distal radius 06/04/2011 Inguinal hernia without mention of obstruction or gangrene, unilateral or unspecified, (not specified as recurrent) 12/14/2013 Internal hemorrhoids without mention of complication 01/09/2011 IRRITABLE COLON 08/09/2005 Knee joint replacement status 04/04/2014 Macular edema 08/17/2010 Osteoarthritis OSTEOPOROSIS NOS 08/09/2005 Personal history of colonic polyps 11/11/2005 Colonoscopy - 11 October 2005 - Repeat in five years PURE HYPERCHOLESTEROLEM 08/09/2005 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- treated w/focal laser Right carpal tunnel syndrome 04/03/2015 Snoring Trigger ring finger of right hand 06/05/2015 Trochanteric bursitis of left hip 07/19/2016 Unspecified migraine Unspecified sleep apnea 2003 hypoxic sleep apnea Wound infection after surgery 03/07/2014 PAST SURGICAL HISTORY Procedure Laterality Date ANTERIOR COLPORRAPHY RPR CYSTOCELE W/CYSTO 2004 Cystocele repair ARTHROSCOPY KNEE DIAGNOSTIC W/WO SYNOVIAL BX SPX 2004 Arthroscopy, knee right ARTHROSCOPY KNEE DIAGNOSTIC W/WO SYNOVIAL BX SPX 1994 Arthroscopy, knee left and right COLONOSCOPY FLX DX W/COLLJ SPEC WHEN PFRMD 10/01/2002 Colonoscopy COLONOSCOPY FLX DX W/COLLJ SPEC WHEN PFRMD 01/09/2011 Colonoscopy COLONOSCOPY W/BIOPSY SINGLE/MULTIPLE 10/11/05 Diverticulosis CYSTOSCOPY 04/13/15 DESTRUCTION BENIGN LESIONS UP TO 14 10/16/06 Right infraorbital skin lesion ablation ESOPHAGOGASTRODUODENOSCOPY TRANSORAL DIAGNOSTIC 11/02/2018 EGD LAPAROSCOPY SURG CHOLECYSTECTOMY Cholecystectomy, lap PAST SURGICAL HISTORY OF 09/29 repair prolapse bladder PAST SURGICAL HISTORY OF eye laser surgery PAST SURGICAL HISTORY OF 1988 B/L bunion surgery - Dr. Solis - [facility] PAST SURGICAL HISTORY OF 02/02/2014 right TKA & I&D of right TKA on 02/23/14 PAST SURGICAL HISTORY OF 06/02/2015 right ring trigger finger release REVISE MEDIAN N/CARPAL TUNNEL SURG 06/02/2015 right carpal tunnel release SKIN BX, 1 LESION 03/10/12 Left cheek skin lesion bx TOTAL ABDOMINAL HYSTERECT W/WO RMVL TUBE OVARY 1981 FAMILY HISTORY Problem Relation Age of Onset Heart Mother Hypertension Mother other (Colitis) Mother Heart Father Diabetes Father DVT Father Diabetes Paternal Aunt Diabetes Paternal Uncle Hypertension Maternal Grandmother Heart Maternal Grandmother DVT Brother other (Colitis) Sister Social History Tobacco Use Smoking status: Never Smoker Smokeless tobacco: Never Used Vaping Use Vaping Use: Never used Substance Use Topics Alcohol use: No Drug use: No Past medical history, appointments, medications, allergies reviewed. Pertinent Lab/Diagnostic Studies are reviewed and discussed today Current Outpatient Medications: omeprazole (PRILOSEC) 40 mg capsule ciprofloxacin HCl (CIPRO) 500 mg tablet conjugated estrogens (PREMARIN) vaginal cream nitrofurantoin macrocrystal (MACRODANTIN) 50 mg capsule rizatriptan (MAXALT) 10 mg tablet meclizine (ANTIVERT) 12.5 mg tab colestipol (COLESTID) 1 gram tablet sucralfate (CARAFATE) 1 gram tablet chlorthalidone (HYGROTON) 25 mg tablet fremanezumab-vfrm (AJOVY AUTOINJECTOR) 225 mg/1.5 mL auto-injector methocarbamol (ROBAXIN) 750 mg tablet chlorthalidone (HYGROTON) 25 mg tablet potassium chloride SR (MICRO-K) 10 mEq CR capsule acetaminophen (TYLENOL ORAL) cholecalciferol, vitamin D3, (VITAMIN D3 ORAL) diphenoxylate-atropine (LOMOTIL) 2.5-0.025 mg per tablet Current Facility-Administered Medications: perflutren lipid microspheres 1.3 mL in NaCl (PF) 0.9% 10 mL injection (DEFINITY) sodium chloride 0.9 % (flush) 10 mL (BD POSIFLUSH) bupivacaine 7.5 mg injection (SENSORCAINE) Review of Systems CONSTITUTIONAL: No fevers, chills night sweats, unintended weight loss CARDIOVASCULAR: No chest pain, dyspnea, palpitations, orthopnea, PND, ankle edema. PULM: No dyspnea, unexplained cough. GI: No dysphagia/odynophagia, problematic reflux, constipation, diarrhea, changes in stool habits, hematochezia, melena. : No new urinary complaints, including dysuria, gross hematuria or pyuria. NEURO: No new balance problems, peripheral weakness/paresthesias or numbness of concern. Physical Exam BP 132/72 (BP Site: Left Arm, BP Position: Sitting, BP Cuff Size: Large Adult) Pulse 83 Temp 36.7 C (98.1 F) Resp 12 Ht 149.9 cm (4' 11 ) Wt 70.8 kg (156 lb) SpO2 97% BMI 31.51 kg/m General appearance: Well appearing, alert, in no acute distress, well nourished. Skin: Skin color, texture, turgor normal, no suspicious rashes or lesions Head: Normocephalic, no masses, lesions, tenderness or abnormalities Eyes: Anicteric sclera. Pupils are equally round and reactive to light. Extraocular movements are intact. Lungs: Lungs clear to auscultation. No wheezing, rhonchi, rales Heart: RRR without murmur, gallop, or rubs. Extremities: No deformities, edema, skin discoloration, clubbing or cyanosis. Good capillary refill. ASSESSMENT/PLAN: 1. H. pylori infection - ICD9: 041.86, ICD10: A04.8 (primary diagnosis) - H PYLORI AG BY EIA,STOOL - BREATH TEST H PYLORI 2. Chronic diarrhea - ICD9: 787.91, ICD10: K52.9 3. Essential hypertension - ICD9: 401.9, ICD10: I10 - good control - Recommended regular aerobic exercise. - Recommend home blood pressure monitoring, to bring results in on next visit - Goal of BP <130/80 - CHLORTHALIDONE 25 MG TABLET 4. Hypokalemia - ICD9: 276.8, ICD10: E87.6 - POTASSIUM CHLORIDE ER 10 MEQ CAPSULE,EXTENDED RELEASE 5. Recurrent UTI - ICD9: 599.0, ICD10: N39.0 acute - Patient education for prevention given Kenney Atkins MD error documented in this encounter [facility] 11-12-2021 Miscellaneous Notes Called patient. Verified name and date of . Informed of results and of orders. Patient verbalizes understanding. Flower Baez LPN Please, notify patient the urine culture was Positive She should hold 50 mg Macrobid and start Cipro and can start it again the week after finishing Cipro Treatment e-scripted: Cipro 500 mg Patient had GI upset with Levaquin but hoping she can try it And will need a 2 week post-treatment urine culture ( orders are in) Thank you, JOHANNA Combs, MT, MECHE Patient called. Verified name and date of . Patient states having been seen Friday for a UTI and reports that she continues to have horrible back pain and symptoms of UTI is not easing up with the maintenance dose of antibiotic (Macrondantin 50 MG) and is asking if she can have a antibiotic that is stronger to clear up this UTI then do the maintenance dose? Please review and advise. Flower Baez LPN documented in this encounter [facility] 11-09-2021 History of Present illness Narrative Images from the original note were not included. [facility] [place] PATIENT INFO: Kendal L Brandon CHIEF COMPLAINT: UTI Follow-up HPI: This is a 81 year old female who is here for follow up on recurrent UTIs UTI prevention, with Premarin but still getting UTI from time to time Refilled Estrogen Results for orders placed or performed in visit on 11/09/21 UA DIP, URINE (POC) Result Value Ref Range GLUCOSE UA (POCT) Negative Negative mg/dL BILIRUBIN UA (POCT) Negative Negative KETONE UA (POCT) Negative Negative mg/dL SPECIFIC GRAVITY UA (POCT) 1.015 1.005 - 1.030 HEMOGLOBIN/BLOOD UA (POCT) Trace-intact (A) Negative PH UA (POCT) 6.0 4.5 - 8.0 PROTEIN UA (POCT) Negative Negative mg/dL UROBILINOGEN UA (POCT) 0.2 Normal E.U./dL NITRITE UA (POCT) Negative Negative LEUKOCYTES UA (POCT) Small (A) Negative COLOR UA (POCT) Yellow CLARITY UA (POCT) Cloudy *Note: Due to a large number of results and/or encounters for the requested time period, some results have not been displayed. A complete set of results can be found in Results Review. MEDICATIONS rizatriptan (MAXALT) 10 mg tablet Take 1 tablet by mouth as needed (at onset of headache. May repeat after 2 hours.). Do not exceed 30 mg per day. meclizine (ANTIVERT) 12.5 mg tab Take 1 tablet by mouth three times daily as needed (dizziness). colestipol (COLESTID) 1 gram tablet Take 3 tablets by mouth once daily. sucralfate (CARAFATE) 1 gram tablet Take 1 tablet by mouth twice daily. chlorthalidone (HYGROTON) 25 mg tablet Take 0.5 tablets by mouth once daily. fremanezumab-vfrm (AJOVY AUTOINJECTOR) 225 mg/1.5 mL auto-injector Inject 1.5 mL subcutaneously once every month. Do not shake. methocarbamol (ROBAXIN) 750 mg tablet Take 1 tablet by mouth twice daily as needed. chlorthalidone (HYGROTON) 25 mg tablet Take 1 tablet by mouth once daily. PREMARIN vaginal cream APPLY PEA SIZED AMOUNT AT BEDTIME THREE TIMES A WEEK potassium chloride SR (MICRO-K) 10 mEq CR capsule Take 1 capsule by mouth once daily. omeprazole (PRILOSEC) 40 mg capsule Take 1 capsule by mouth once daily. acetaminophen (TYLENOL ORAL) Take by mouth as needed. cholecalciferol, vitamin D3, (VITAMIN D3 ORAL) Take 5,000 Units by mouth. diphenoxylate-atropine (LOMOTIL) 2.5-0.025 mg per tablet Take 1 tablet by mouth twice daily as needed for Diarrhea for up to 90 days. REVIEW OF SYSTEMS: GENERAL: No fever, chills, weight loss, or fatigue. PHYSICAL EXAM: Blood pressure 142/76, pulse 98, temperature 36.5 C (97.7 F), temperature source Temporal, resp. rate 14, height 149.9 cm (4' 11 ), weight 71.7 kg (158 lb), SpO2 97 %. GENERAL:WNL nutrition, no deformities, healthy appearing IMPRESSION/PLAN: > History of Atrophic Vaginitis > Topical Estrogen - Refilled > Urinary Incontinence > s/p Sling with Dr. Martinez in the past > Recurrent UTI > Macrobid 50 mg Daily for 3 months Follow up 3 month with JOHANNA Lacey MT, PA-C for medication change JOHANNA Combs MT, PA-C CC Post Void Residual HPI: Kendal Taylor is a 81 year old female. The patient is here now for an appointment with JOHANNA Combs MT, PA-COV. Procedure: Explained procedure to patient and verbalizes understanding. Performed a PVR. Patient urinated and instructed to empty bladder as much as possible just prior to having PVR done using bladder ultrasound scanner. Results of scan: 0 mL The patient tolerated the procedure well. Plan: Appointment with Jennifer. documented in this encounter [facility] 11-01-2021 Instructions Terrance Mccain MD - 11/01/2021 11:43 AM EDT Continue Ajovy monthly Continue Maxalt and Robaxin as needed Follow up in 6 months documented in this encounter [facility] 11-01-2021 History of Present illness Narrative [facility] [place] Follow up visit History of Present Illness: Ms. Taylor is a 81 year old female presenting for follow-up of headaches. I last saw her on 06/05/2021. She has a history of migraines without aura that have responded well to CGRP antibodies. Patient continues to do well. She is still averaging about 1-2 migraines per month. Maxalt works very well as an abortive. She was switched from Aimovig to Ajovy for financial reasons and Ajovy works just as well. She also notes that with Aimovig she had some muscle stiffness as a side effect but has not noticed this with Ajovy. Her neck pain is much better and she exercises daily. She will use Robaxin about 2 days/week. She is still getting frequent UTIs. She follows with infectious diseases and her primary care physician for these. Patient's only concern is that sometimes when she is speaking she will know which she is trying to say but will forget the word. She will usually recall it after a few seconds. She has not had any other issues with memory or cognition. She has no other complaints at this time. The patient's prior records were reviewed including and lab testing, imaging, and procedures done since their last visit with me. Review of symptoms including constitutional, eyes, ENT, neck, respiratory, cardiovascular, GI, , musculoskeletal, hematologic, oncologic, endocrine, and psychiatric categories is unchanged. No new details in the family history or social history were offered by the patient. Vital Signs: BP 137/71 (BP Site: Left Arm, BP Position: Sitting, BP Cuff Size: Regular Adult) Pulse 86 Ht 152.4 cm (5') Wt 70.5 kg (155 lb 8 oz) BMI 30.37 kg/m IMPRESSION/PLAN: 1) Migraines without aura-Well controlled. Continue Ajovy monthly. Continue Robaxin/Maxalt PRN. 2) Word-finding difficulty-Suspect this is normal aging. Reassured her and encouraged her to let me know if she experiences further cognitive issues. 3) Recurrent UTIs-Seen by ID. Encouraged continued follow-up with PCP. F/u in 6 months. All questions answered. The duration of this appointment visit was 30 minutes of ihix-ju-huoe time with the patient. At least 50% of this time was spent in counseling, explanation of diagnosis, planning of further management, and coordination of care. Portions of this note have been composed using voice recognition and may contain sap technical developer errors Terrance Mccain M.D. [facility] Associate Staff Department of Neurology Referring provider: Terrance Mccain [address] [place] [id number] Primary care provider: [place] [address] documented in this encounter [facility] 10-17-2021 Miscellaneous Notes Pt called back and states she is going to go to Urgent Care for treatment. Janine Bo Patient calling and states she is having symptoms of a UTI and urinary incontinence. Patient is asking is she can have something for the UTI? Requesting RX be called into [facility] in [place]. documented in this encounter [facility] 09-13-2021 Miscellaneous Notes Pt is not seen in our office. This med was filled by neurology Will route to Neurologist Patient has been identified by name and date of : Yes Pending Prescriptions Disp Refills RIZATRIPTAN 10 MG TABLET 10 tablet 3 Sig: Take 1 tablet by mouth as needed (at onset of headache. May repeat after 2 hours.). Do not exceed 30 mg per day. JAYNE: No RX INSTRUCTIONS: Patient requesting a call when RX is approved and sent to the pharmacy. Please call patient at: [phone] IF this is not going to be filled please call patient Clotilde Hong documented in this encounter [facility] 09-05-2021 Miscellaneous Notes Sent Disruptor Beamhart message to Kendal informing her we need to reschedule her appointment on 11/29/[address] Mccain because he will not be seeing patients this day. 1st attempt to reschedule. Nika Osorio documented in this encounter [facility] 05-09-2021 Miscellaneous Notes I would prefer a virtual visit Patient calls in to request an appointment with provider for continued sinus congestion and cough. Patient reports she believes it is now a sinus infection. Appointment scheduled for 05/11/2021. Patient also requesting paper copy of work excuse. 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 Patient is aware. Lilliana Palacios RN I sent a mychart ;letter of sick leave Pt called in and reports that she came in to and had a Covid test that came back negative. States that she does not believe that she can work the rest of the week and would like provider to write her a note to have the rest of the week off of work. Reports that she has a cough and is bringing up green/yellow mucus, nasal drainage, and is weak (dosen't think she would be able to be on her feet all 6 hours at work). wouldn't give her an antibiotic for this because they told her it was viral and told her to take OTC medications. Pt is on Macrobid for a UTI at this time. Please call and advise. documented in this encounter [facility] 12-23-2019 Note HNO ID: [id number] Author: Clinton Aguirre Service: ? Author Type: Physician Type: Progress Notes Filed: 12/27/2019 7:37 AM Note Text: [facility] [place] Interval Evaluation Form CHIEF COMPLAINT: Neck pain Interval HPI December 27, 2019 Patient returns for f/u regarding above complaints, she is s/p bilat C2-5 MBB, patient reports >80% relief lasting duration of LA, she still reports some relief especially with the tightness in her shoulders. She is currently following with a neurologist to optimize her headache medication management. She is pleased with how the injection went and wishes to focus on the neurology route at this time. Pain currently 2-3/ HPI November 18, 2019: Kendal Taylor is a 79 year old female presenting to the office for evaluation and treatment of right>left neck pain, which is worse with extension. Patient states the neck pain extends into the base of her skull and into her head. She has been taking fioricet, which helps with the pain. In the past, she has also tried amitriptyline, patient states she was too sedated. She continues to take meloxicam. Pain interferes with the patient's ability to be active; and also interferes with the patient's ability to sleep at night. Pain currently 3-4/10, 7-8/10 PAIN DETAIL: Location: neck pain Radiation: none Onset: >3 years Timing of Pain: frequently Pain Quality: aching, numb, sharp, shooting Alleviating: rest Exacerbating: activity, movement Prior therapies: PT last completed last year, mobic, heat/cold packs, amitriptyline ADDITIONAL SYMPTOMS: No changes in urinary habits. No changes in bowel movement frequency. Able to restrain bowel movement. 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 12/24/2010 - Carpal tunnel syndrome, right 06/05/2015 - Contact dermatitis and other eczema, due to unspecified cause 05/14/2006 - Diarrhea - Diverticulosis of colon (without mention of hemorrhage) - DIVERTICULOSIS OF COLON W/O BLEED 08/09/2005 - Essential hypertension, benign - Fracture of left distal radius 06/04/2011 - Inguinal hernia without mention of obstruction or gangrene, unilateral or unspecified, (not specified as recurrent) 12/14/2013 - Internal hemorrhoids without mention of complication 01/09/2011 - IRRITABLE COLON 08/09/2005 - Knee joint replacement status 04/04/2014 - Macular edema 08/17/2010 - Osteoarthritis - OSTEOPOROSIS NOS 08/09/2005 - Personal history of colonic polyps 11/11/2005 Colonoscopy - 11 October 2005 - Repeat in five years - PURE HYPERCHOLESTEROLEM 08/09/2005 - 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- treated w/focal laser - Right carpal tunnel syndrome 04/03/2015 - Snoring - Trigger ring finger of right hand 06/05/2015 - Trochanteric bursitis of left hip 07/19/2016 - Unspecified migraine - Unspecified sleep apnea 2003 hypoxic sleep apnea - Wound infection after surgery 03/07/2014 Psych: denies PAST SURGICAL HISTORY: PAST SURGICAL HISTORY Procedure Laterality Date - ANTER COLPORRHAPHY,BLAD/VAGINA 2004 Cystocele repair - COLONOSCOP W/ OR W/O BRSH SPEC 10/01/2002 Colonoscopy - COLONOSCOP W/ OR W/O BRSH SPEC 01/09/2011 Colonoscopy - COLONOSCOPY W/BX 10/11/05 Diverticulosis - CYSTOSCOPY 04/13/15 - DESTR LESION BENIGN/PREMAL 10/16/06 Right infraorbital skin lesion ablation - EGD W/O OR W/BRUSH/WASH 11/02/2018 EGD - KNEE SCOPE,DIAGNOSTIC 2004 Arthroscopy, knee right - KNEE SCOPE,DIAGNOSTIC 1994 Arthroscopy, knee left and right - LAPAROSCOPIC CHOLEYCYSTECTOMY Cholecystectomy, lap - PAST SURGICAL HISTORY OF 09/29 repair prolapse bladder - PAST SURGICAL HISTORY OF eye laser surgery - PAST SURGICAL HISTORY OF 1988 B/L bunion surgery - Dr. Solis - [facility] - PAST SURGICAL HISTORY OF 02/02/2014 right TKA AND IANDD of right TKA on 02/23/14 - PAST SURGICAL HISTORY OF 06/02/2015 right ring trigger finger release - [facility] N/CARPAL TUNNEL SURG 06/02/2015 right carpal tunnel release - SKIN BX, 1 LESION 03/10/12 Left cheek skin lesion bx - TOTAL ABDOM HYSTERECTOMY 1980 SOCIAL HISTORY: Social History Tobacco Use - Smoking status: Never Smoker - Smokeless tobacco: Never Used Substance Use Topics - Alcohol use: No - Drug use: No Social History Social History Narrative Not on file - Illicits: denies - EtOH: denies FAMILY HISTORY: FAMILY HISTORY Problem Relation Age of Onset - Heart Mother - Hypertension Mother - other (Colitis) Mother - Heart Father - Diabetes Father - DVT Father - Diabetes Paternal Aunt - Diabetes Paternal Uncle - Hypertension Maternal Grandmother - Heart Maternal Grandmother - DVT Brother - other (Colitis) Sister Reviewed, no history of chronic pain in parents, and is non-contributory MEDICATIONS: Current Outpatient Medications Medication Sig Dispense Refill - erenumab-aooe (more content not included)... [facility] 12-01-2019 Note HNO ID: [id number] Author: Clinton Aguirre Service: ? Author Type: Physician Type: Procedures Filed: 12/01/2019 12:34 PM Note Text: HEMALATHA Taylor is a 79 year old female who presents with neck pain here for cerv MBB Review of Systems REVIEW OF SYTEMS: Systemic Symptoms: Negative except as noted. Head Symptoms: Negative except as noted. Pulmonary Symptoms: Negative except as noted. Other ROS: Negative except as noted. Cardiovascular Symptoms: Negative except as noted. Gastrointestinal Symptoms: Negative except as noted. Genitourinary Symptoms: Negative except as noted. Neurological Symptoms: Negative except as noted. Endocrine Symptoms: Negative except as noted. Hematologic Symptoms: No History of Easy Bleeding. No History of Bruising. Musculoskeletal Symptoms: Negative except as noted. Skin Symptoms: Negative except as noted. Psychiatric Symptoms: Not feeling depressed. Not thinking about suicide. 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 12/24/2010 - Carpal tunnel syndrome, right 06/05/2015 - Contact dermatitis and other eczema, due to unspecified cause 05/14/2006 - Diarrhea - Diverticulosis of colon (without mention of hemorrhage) - DIVERTICULOSIS OF COLON W/O BLEED 08/09/2005 - Essential hypertension, benign - Fracture of left distal radius 06/04/2011 - Inguinal hernia without mention of obstruction or gangrene, unilateral or unspecified, (not specified as recurrent) 12/14/2013 - Internal hemorrhoids without mention of complication 01/09/2011 - IRRITABLE COLON 08/09/2005 - Knee joint replacement status 04/04/2014 - Macular edema 08/17/2010 - Osteoarthritis - OSTEOPOROSIS NOS 08/09/2005 - Personal history of colonic polyps 11/11/2005 Colonoscopy - 11 October 2005 - Repeat in five years - PURE HYPERCHOLESTEROLEM 08/09/2005 - 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- treated w/focal laser - Right carpal tunnel syndrome 04/03/2015 - Snoring - Trigger ring finger of right hand 06/05/2015 - Trochanteric bursitis of left hip 07/19/2016 - Unspecified migraine - Unspecified sleep apnea 2003 hypoxic sleep apnea - Wound infection after surgery 03/07/2014 PAST SURGICAL HISTORY Procedure Laterality Date - ANTER COLPORRHAPHY,BLAD/VAGINA 2003 Cystocele repair - COLONOSCOP W/ OR W/O [facility] SPEC 10/01/2002 Colonoscopy - COLONOSCOP W/ OR W/O [facility] SPEC 01/09/2011 Colonoscopy - COLONOSCOPY W/BX 10/11/05 Diverticulosis - CYSTOSCOPY 04/13/15 - DESTR LESION BENIGN/PREMAL 10/16/06 Right infraorbital skin lesion ablation - EGD W/O OR W/BRUSH/WASH 11/02/2018 EGD - KNEE SCOPE,DIAGNOSTIC 2004 Arthroscopy, knee right - KNEE SCOPE,DIAGNOSTIC 1994 Arthroscopy, knee left and right - LAPAROSCOPIC CHOLEYCYSTECTOMY 1989' Cholecystectomy, lap - PAST SURGICAL HISTORY OF 09/29 repair prolapse bladder - PAST SURGICAL HISTORY OF eye laser surgery - PAST SURGICAL HISTORY OF 1988 B/L bunion surgery - Dr. Solis - [facility] - PAST SURGICAL HISTORY OF 02/02/2014 right TKA AND IANDD of right TKA on 02/23/14 - PAST SURGICAL HISTORY OF 06/02/2015 right ring trigger finger release - [facility] N/CARPAL TUNNEL SURG 06/02/2015 right carpal tunnel release - SKIN BX, 1 LESION 03/10/12 Left cheek skin lesion bx - TOTAL ABDOM HYSTERECTOMY 1980 Family History Problem Relation Age of Onset - Heart Mother - Hypertension Mother - other (Colitis) Mother - Heart Father - Diabetes Father - DVT Father - Diabetes Paternal Aunt - Diabetes Paternal Uncle - Hypertension Maternal Grandmother - Heart Maternal Grandmother - DVT Brother - other (Colitis) Sister Social History Tobacco Use - Smoking status: Never Smoker - Smokeless tobacco: Never Used Substance Use Topics - Alcohol use: No - Drug use: No Current Outpatient Medications Medication Sig Dispense Refill - colesevelam (WELCHOL) 625 mg tablet Take 3 tablets by mouth twice daily with meals. 180 tablet 5 - acetaminophen (TYLENOL ORAL) Take by mouth. - cholecalciferol, vitamin D3, (VITAMIN D3 ORAL) Take 5,000 Units by mouth. - topiramate (TOPAMAX) 25 mg tablet Take 1 tablet by mouth daily at bedtime. 30 tablet 1 - tiZANidine (ZANAFLEX) 2 mg tablet Take 1 tablet by mouth at bedtime as needed (muscle spasms). 30 tablet 1 - diclofenac sodium (VOLTAREN) 1 % topical gel Apply 2 g to affected area four times daily. 200 g 2 - acetaminophen 325 mg-caffeine 40 mg-butalbital 50 mg (FIORICET) per tablet Take 1 tablet by mouth three times daily as needed (For tension headaches). 90 tablet 1 - diphenoxylate-atropine (LOMOTIL) 2.5-0.025 mg per tablet Take 1 tablet by mouth twice daily as needed for Diarrhea for up to 90 days. 90 tablet 0 - chlorthalidone (HYGROTON) 25 mg tablet Take 0.5 tablets by mouth once daily. 90 tablet 3 - meloxicam (MOBIC) 15 mg tablet Take 1 tablet by mouth once daily. 90 tablet 3 - ergocalciferol 50,000 (more content not included)... [facility] 11-30-2019 Note Procedure (AGSPINE3) BRANDONKENDAL L ([id number]) 1940 F Date Time Provider Department 11/30/19 10:00 AM HERBERTH, JAJADEN AGSPINE3 During your visit today, we recorded the following information about you: Temperature Pulse Blood pressure Weight 97.7 degrees 70/minute 160/68 70.8 kg Height 1.499 m Graciela Tyson LPN 11/30/2019 9:36 AM Signed Aging Room Operator: Are you on a blood thinner: NO If yes, is a hold required: NO Last dose of blood thinner: NO INR result today: NO Do you require a Lovenox bridge: NO Are you a diabetic: NO BS result today: NO Are you/could you be : NO Are you taking Xanax for the procedure: NO Are you currently on an antibiotic: NO Are you currently on a steroid: NO HELGA Parson LPN 12/01/2019 12:34 PM Signed Subjective HPI Review of Systems Eyes: Negative for blurred vision and double vision. Respiratory: Negative for shortness of breath. Cardiovascular: Negative for chest pain and leg swelling. Gastrointestinal: Positive for diarrhea. Negative for constipation, nausea and vomiting. IBS Genitourinary: Negative for dysuria. Skin: Negative for itching. Neurological: Positive for headaches. Negative for dizziness, tingling and weakness. Endo/Heme/Allergies: Bruises/bleeds easily. Psychiatric/Behavioral: Negative for depression and suicidal ideas. 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 12/24/2010 - Carpal tunnel syndrome, right 06/05/2015 - Contact dermatitis and other eczema, due to unspecified cause 05/14/2006 - Diarrhea - Diverticulosis of colon (without mention of hemorrhage) - DIVERTICULOSIS OF COLON W/O BLEED 08/09/2005 - Essential hypertension, benign - Fracture of left distal radius 06/04/2011 - Inguinal hernia without mention of obstruction or gangrene, unilateral or unspecified, (not specified as recurrent) 12/14/2013 - Internal hemorrhoids without mention of complication 01/09/2011 - IRRITABLE COLON 08/09/2005 - Knee joint replacement status 04/04/2014 - Macular edema 08/17/2010 - Osteoarthritis - OSTEOPOROSIS NOS 08/09/2005 - Personal history of colonic polyps 11/11/2005 Colonoscopy - 11 October 2005 - Repeat in five years - PURE HYPERCHOLESTEROLEM 08/09/2005 - 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- treated w/focal laser - Right carpal tunnel syndrome 04/03/2015 - Snoring - Trigger ring finger of right hand 06/05/2015 - Trochanteric bursitis of left hip 07/19/2016 - Unspecified migraine - Unspecified sleep apnea 2003 hypoxic sleep apnea - Wound infection after surgery 03/07/2014 PAST SURGICAL HISTORY Procedure Laterality Date - ANTER COLPORRHAPHY,BLAD/VAGINA 2003 Cystocele repair - COLONOSCOP W/ OR W/O BRSH SPEC 10/01/2002 Colonoscopy - COLONOSCOP W/ OR W/O BRSH SPEC 01/09/2011 Colonoscopy - COLONOSCOPY W/BX 10/11/05 Diverticulosis - CYSTOSCOPY 04/13/15 - DESTR LESION BENIGN/PREMAL 10/16/06 Right infraorbital skin lesion ablation - EGD W/O OR W/BRUSH/WASH 11/02/2018 EGD - KNEE SCOPE,DIAGNOSTIC 2004 Arthroscopy, knee right - KNEE SCOPE,DIAGNOSTIC 1994 Arthroscopy, knee left and right - LAPAROSCOPIC CHOLEYCYSTECTOMY Cholecystectomy, lap - PAST SURGICAL HISTORY OF 09/29 repair prolapse bladder - PAST SURGICAL HISTORY OF eye laser surgery - PAST SURGICAL HISTORY OF 1988 B/L bunion surgery - Dr. Solis - [facility] - PAST SURGICAL HISTORY OF 02/02/2014 right TKA AND IANDD of right TKA on 02/23/14 - PAST SURGICAL HISTORY OF 06/02/2015 right ring trigger finger release - [facility] N/CARPAL TUNNEL SURG 06/02/2015 right carpal tunnel release - SKIN BX, 1 LESION 03/10/12 Left cheek skin lesion bx - TOTAL ABDOM HYSTERECTOMY 1980 FAMILY HISTORY Problem Relation Age of Onset - Heart Mother - Hypertension Mother - other (Colitis) Mother - Heart Father - Diabetes Father - DVT Father - Diabetes Paternal Aunt - Diabetes Paternal Uncle - Hypertension Maternal Grandmother - Heart Maternal Grandmother - DVT Brother - other (Colitis) Sister Social History Tobacco Use - Smoking status: Never Smoker - Smokeless tobacco: Never Used Substance Use Topics - Alcohol use: No - Drug use: No Current Meds colesevelam (WELCHOL) 625 mg tablet Take 3 tablets by mouth twice daily with meals. acetaminophen (TYLENOL ORAL) Take by mouth. cholecalciferol, vitamin D3, (VITAMIN D3 ORAL) Take 5,000 Units by mouth. topiramate (TOPAMAX) 25 mg tablet Take 1 tablet by mouth daily at bedtime. tiZANidine (ZANAFLEX) 2 mg tablet Take 1 tablet by mouth at bedtime as needed (muscle spasms). diclofenac sodium (VOLTAREN) 1 % topical gel Apply 2 g to affected area four times daily. acetaminophen 325 mg-caffeine 40 mg-butalbital 50 mg (FIORICET) per tablet Take 1 tablet by mouth three times daily as needed (For tension headaches). (more content not included)... [facility] 11-30-2019 Note HNO ID: [id number] Author: Graciela Tyson LPN Service: ? Author Type: ? Type: Progress Notes Filed: 12/01/2019 12:34 PM Note Text: Subjective HPI Review of Systems Eyes: Negative for blurred vision and double vision. Respiratory: Negative for shortness of breath. Cardiovascular: Negative for chest pain and leg swelling. Gastrointestinal: Positive for diarrhea. Negative for constipation, nausea and vomiting. IBS Genitourinary: Negative for dysuria. Skin: Negative for itching. Neurological: Positive for headaches. Negative for dizziness, tingling and weakness. Endo/Heme/Allergies: Bruises/bleeds easily. Psychiatric/Behavioral: Negative for depression and suicidal ideas. 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 12/24/2010 - Carpal tunnel syndrome, right 06/05/2015 - Contact dermatitis and other eczema, due to unspecified cause 05/14/2006 - Diarrhea - Diverticulosis of colon (without mention of hemorrhage) - DIVERTICULOSIS OF COLON W/O BLEED 08/09/2005 - Essential hypertension, benign - Fracture of left distal radius 06/04/2011 - Inguinal hernia without mention of obstruction or gangrene, unilateral or unspecified, (not specified as recurrent) 12/14/2013 - Internal hemorrhoids without mention of complication 01/09/2011 - IRRITABLE COLON 08/09/2005 - Knee joint replacement status 04/04/2014 - Macular edema 08/17/2010 - Osteoarthritis - OSTEOPOROSIS NOS 08/09/2005 - Personal history of colonic polyps 11/11/2005 Colonoscopy - 11 October 2005 - Repeat in five years - PURE HYPERCHOLESTEROLEM 08/09/2005 - 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- treated w/focal laser - Right carpal tunnel syndrome 04/03/2015 - Snoring - Trigger ring finger of right hand 06/05/2015 - Trochanteric bursitis of left hip 07/19/2016 - Unspecified migraine - Unspecified sleep apnea 2003 hypoxic sleep apnea - Wound infection after surgery 03/07/2014 PAST SURGICAL HISTORY Procedure Laterality Date - ANTER COLPORRHAPHY,BLAD/VAGINA 2003 Cystocele repair - COLONOSCOP W/ OR W/O BRSH SPEC 10/01/2002 Colonoscopy - COLONOSCOP W/ OR W/O BRSH SPEC 01/09/2011 Colonoscopy - COLONOSCOPY W/BX 10/11/05 Diverticulosis - CYSTOSCOPY 04/13/15 - DESTR LESION BENIGN/PREMAL 10/16/06 Right infraorbital skin lesion ablation - EGD W/O OR W/BRUSH/WASH 11/02/2018 EGD - KNEE SCOPE,DIAGNOSTIC 2004 Arthroscopy, knee right - KNEE SCOPE,DIAGNOSTIC 1994 Arthroscopy, knee left and right - LAPAROSCOPIC CHOLEYCYSTECTOMY Cholecystectomy, lap - PAST SURGICAL HISTORY OF 09/29 repair prolapse bladder - PAST SURGICAL HISTORY OF eye laser surgery - PAST SURGICAL HISTORY OF 1988 B/L bunion surgery - Dr. Solis - [facility] - PAST SURGICAL HISTORY OF 02/02/2014 right TKA AND IANDD of right TKA on 02/23/14 - PAST SURGICAL HISTORY OF 06/02/2015 right ring trigger finger release - [facility] N/CARPAL TUNNEL SURG 06/02/2015 right carpal tunnel release - SKIN BX, 1 LESION 03/10/12 Left cheek skin lesion bx - TOTAL ABDOM HYSTERECTOMY 1980 FAMILY HISTORY Problem Relation Age of Onset - Heart Mother - Hypertension Mother - other (Colitis) Mother - Heart Father - Diabetes Father - DVT Father - Diabetes Paternal Aunt - Diabetes Paternal Uncle - Hypertension Maternal Grandmother - Heart Maternal Grandmother - DVT Brother - other (Colitis) Sister Social History Tobacco Use - Smoking status: Never Smoker - Smokeless tobacco: Never Used Substance Use Topics - Alcohol use: No - Drug use: No Current Meds colesevelam (WELCHOL) 625 mg tablet Take 3 tablets by mouth twice daily with meals. acetaminophen (TYLENOL ORAL) Take by mouth. cholecalciferol, vitamin D3, (VITAMIN D3 ORAL) Take 5,000 Units by mouth. topiramate (TOPAMAX) 25 mg tablet Take 1 tablet by mouth daily at bedtime. tiZANidine (ZANAFLEX) 2 mg tablet Take 1 tablet by mouth at bedtime as needed (muscle spasms). diclofenac sodium (VOLTAREN) 1 % topical gel Apply 2 g to affected area four times daily. acetaminophen 325 mg-caffeine 40 mg-butalbital 50 mg (FIORICET) per tablet Take 1 tablet by mouth three times daily as needed (For tension headaches). diphenoxylate-atropine (LOMOTIL) 2.5-0.025 mg per tablet Take 1 tablet by mouth twice daily as needed for Diarrhea for up to 90 days. chlorthalidone (HYGROTON) 25 mg tablet Take 0.5 tablets by mouth once daily. meloxicam (MOBIC) 15 mg tablet Take 1 tablet by mouth once daily. ergocalciferol 50,000 unit capsule (VITAMIN D2, DRISDOL) TAKE ONE CAPSULE BY MOUTH ONCE A WEEK potassium chloride SR (MICRO-K) 10 mEq CR capsule Take 1 capsule by mouth once daily. Omeprazole 40 mg capsule Take 1 capsule by mouth once daily. conjugated estrogens (PREMARIN) vaginal cream pea-sized amount qhs three times weekly ketoconazole (NIZORAL) 2 % shampoo Apply to scalp rash every other day until clear- Lather and rinse and then lather 2nd t (more content not included)... [facility] 11-18-2019 Note HNO ID: [id number] Author: Clinton Aguirre Service: ? Author Type: Physician Type: Progress Notes Filed: 11/22/2019 2:06 AM Note Text: [facility] [place] Initial Evaluation Form CHIEF COMPLAINT: Neck pain Referred by: KENNEY ATKINS MD [id number] [facility] [id number] [facility] November 18, 2019: Kendal Taylor is a 79 year old female presenting to the office for evaluation and treatment of right>left neck pain, which is worse with extension. Patient states the neck pain extends into the base of her skull and into her head. She has been taking fioricet, which helps with the pain. In the past, she has also tried amitriptyline, patient states she was too sedated. She continues to take meloxicam. Pain interferes with the patient's ability to be active; and also interferes with the patient's ability to sleep at night. Pain currently 3-08/05, -12/05 PAIN DETAIL: Location: neck pain Radiation: none Onset: >3 years Timing of Pain: frequently Pain Quality: aching, numb, sharp, shooting Alleviating: rest Exacerbating: activity, movement Prior therapies: PT last completed last year, mobic, heat/cold packs, amitriptyline ADDITIONAL SYMPTOMS: No changes in urinary habits. No changes in bowel movement frequency. Able to restrain bowel movement. 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 12/24/2010 - Carpal tunnel syndrome, right 06/05/2015 - Contact dermatitis and other eczema, due to unspecified cause 05/14/2006 - Diarrhea - Diverticulosis of colon (without mention of hemorrhage) - DIVERTICULOSIS OF COLON W/O BLEED 08/09/2005 - Essential hypertension, benign - Fracture of left distal radius 06/04/2011 - Inguinal hernia without mention of obstruction or gangrene, unilateral or unspecified, (not specified as recurrent) 12/14/2013 - Internal hemorrhoids without mention of complication 01/09/2011 - IRRITABLE COLON 08/09/2005 - Knee joint replacement status 04/04/2014 - Macular edema 08/17/2010 - Osteoarthritis - OSTEOPOROSIS NOS 08/09/2005 - Personal history of colonic polyps 11/11/2005 Colonoscopy - 11 October 2005 - Repeat in five years - PURE HYPERCHOLESTEROLEM 08/09/2005 - 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- treated w/focal laser - Right carpal tunnel syndrome 04/03/2015 - Snoring - Trigger ring finger of right hand 06/05/2015 - Trochanteric bursitis of left hip 07/19/2016 - Unspecified migraine - Unspecified sleep apnea 2003 hypoxic sleep apnea - Wound infection after surgery 03/07/2014 Psych: denies PAST SURGICAL HISTORY: PAST SURGICAL HISTORY Procedure Laterality Date - ANTER COLPORRHAPHY,BLAD/VAGINA 2003 Cystocele repair - COLONOSCOP W/ OR W/O BRSH SPEC 10/01/2002 Colonoscopy - COLONOSCOP W/ OR W/O BRSH SPEC 01/09/2011 Colonoscopy - COLONOSCOPY W/BX 10/11/05 Diverticulosis - CYSTOSCOPY 04/13/15 - DESTR LESION BENIGN/PREMAL 10/16/06 Right infraorbital skin lesion ablation - EGD W/O OR W/BRUSH/WASH 11/02/2018 EGD - KNEE SCOPE,DIAGNOSTIC 2004 Arthroscopy, knee right - KNEE SCOPE,DIAGNOSTIC 1994 Arthroscopy, knee left and right - LAPAROSCOPIC CHOLEYCYSTECTOMY 1989' Cholecystectomy, lap - PAST SURGICAL HISTORY OF 09/29 repair prolapse bladder - PAST SURGICAL HISTORY OF eye laser surgery - PAST SURGICAL HISTORY OF 1988 B/L bunion surgery - Dr. Solis - [facility] - PAST SURGICAL HISTORY OF 02/02/2014 right TKA AND IANDD of right TKA on 02/23/14 - PAST SURGICAL HISTORY OF 06/02/2015 right ring trigger finger release - [facility] N/CARPAL TUNNEL SURG 06/02/2015 right carpal tunnel release - SKIN BX, 1 LESION 03/10/12 Left cheek skin lesion bx - TOTAL ABDOM HYSTERECTOMY 1980 SOCIAL HISTORY: Social History Tobacco Use - Smoking status: Never Smoker - Smokeless tobacco: Never Used Substance Use Topics - Alcohol use: No - Drug use: No Social History Social History Narrative Not on file - Illicits: denies - EtOH: denies FAMILY HISTORY: FAMILY HISTORY Problem Relation Age of Onset - Heart Mother - Hypertension Mother - other (Colitis) Mother - Heart Father - Diabetes Father - DVT Father - Diabetes Paternal Aunt - Diabetes Paternal Uncle - Hypertension Maternal Grandmother - Heart Maternal Grandmother - DVT Brother - other (Colitis) Sister Reviewed, no history of chronic pain in parents, and is non-contributory MEDICATIONS: Current Outpatient Medications Medication Sig Dispense Refill - acetaminophen (TYLENOL ORAL) Take by mouth. - cholecalciferol, vitamin D3, (VITAMIN D3 ORAL) Take 5,000 Units by mouth. - acetaminophen 325 mg-caffeine 40 mg-butalbital 50 mg (FIORICET) per tablet Take 1 tablet by mouth three times daily as needed (For tension headaches). 90 tablet 1 - diphenoxylate-atropine (LOMOTIL) 2.5-0.025 mg per tablet Take 1 tablet by mouth twice daily as needed for Nazia (more content not included)... [facility] documented as of this encounter (statuses as of 09/05/2021) [facility]12-03-2016 History of Past illness Narrative* Problem Noted Date Resolved Date Primary osteoarthritis of left knee 03/30/2016 08/01/2017 Neck pain 07/25/2014 07/18/2020 Diarrhea 01/09/2011 04/14/2013 Abdominal pain, unspecified site 10/11/2005 04/14/2013 RECURRENT UTI'S 08/12/2005 01/31/2016 documented as of this encounter (statuses as of 09/13/2021) [facility]12-03-2016 History of Past illness Narrative* Problem Noted Date Resolved Date Primary osteoarthritis of left knee 03/30/2016 08/01/2017 Neck pain 07/25/2014 07/18/2020 Diarrhea 01/09/2011 04/14/2013 Abdominal pain, unspecified site 10/11/2005 04/14/2013 RECURRENT UTI'S 08/12/2005 01/31/2016 documented as of this encounter (statuses as of 10/17/2021) [facility]12-03-2016 History of Past illness Narrative* Problem Noted Date Resolved Date Primary osteoarthritis of left knee 03/30/2016 08/01/2017 Neck pain 07/25/2014 07/18/2020 Diarrhea 01/09/2011 04/14/2013 Abdominal pain, unspecified site 10/11/2005 04/14/2013 RECURRENT UTI'S 08/12/2005 01/31/2016 documented as of this encounter (statuses as of 11/01/2021) [facility] History of Past illness Narrative* Problem Noted Date Resolved Date Primary osteoarthritis of left knee 03/30/2016 08/01/2017 Neck pain 07/25/2014 07/18/2020 Diarrhea 01/09/2011 04/14/2013 Abdominal pain, unspecified site 10/11/2005 04/14/2013 RECURRENT UTI'S 08/12/2005 01/31/2016 documented as of this encounter (statuses as of 11/09/2021) [facility] History of Past illness Narrative* Problem Noted Date Resolved Date Primary osteoarthritis of left knee 03/30/2016 08/01/2017 Neck pain 07/25/2014 07/18/2020 Diarrhea 01/09/2011 04/14/2013 Abdominal pain, unspecified site 10/11/2005 04/14/2013 RECURRENT UTI'S 08/12/2005 01/31/2016 documented as of this encounter (statuses as of 11/09/2021) [facility] History of Past illness Narrative* Problem Noted Date Resolved Date Primary osteoarthritis of left knee 03/30/2016 08/01/2017 Neck pain 07/25/2014 07/18/2020 Diarrhea 01/09/2011 04/14/2013 Abdominal pain, unspecified site 10/11/2005 04/14/2013 RECURRENT UTI'S 08/12/2005 01/31/2016 documented as of this encounter (statuses as of 11/12/2021) [facility] History of Past illness Narrative* Problem Noted Date Resolved Date Primary osteoarthritis of left knee 03/30/2016 08/01/2017 Neck pain 07/25/2014 07/18/2020 Diarrhea 01/09/2011 04/14/2013 Abdominal pain, unspecified site 10/11/2005 04/14/2013 RECURRENT UTI'S 08/12/2005 01/31/2016 documented as of this encounter (statuses as of 11/13/2021) [facility] History of Past illness Narrative* Problem Noted Date Resolved Date Primary osteoarthritis of left knee 03/30/2016 08/01/2017 Neck pain 07/25/2014 07/18/2020 Diarrhea 01/09/2011 04/14/2013 Abdominal pain, unspecified site 10/11/2005 04/14/2013 RECURRENT UTI'S 08/12/2005 01/31/2016 documented as of this encounter (statuses as of 11/21/2021) [facility] History of Past illness Narrative* Problem Noted Date Resolved Date Primary osteoarthritis of left knee 03/30/2016 08/01/2017 Neck pain 07/25/2014 07/18/2020 Diarrhea 01/09/2011 04/14/2013 Abdominal pain, unspecified site 10/11/2005 04/14/2013 RECURRENT UTI'S 08/12/2005 01/31/2016 documented as of this encounter (statuses as of 11/30/2021) [facility] History of Past illness Narrative* Problem Noted Date Resolved Date Primary osteoarthritis of left knee 03/30/2016 08/01/2017 Neck pain 07/25/2014 07/18/2020 Diarrhea 01/09/2011 04/14/2013 Abdominal pain, unspecified site 10/11/2005 04/14/2013 RECURRENT UTI'S 08/12/2005 01/31/2016 documented as of this encounter (statuses as of 12/04/2021) [facility] History of Past illness Narrative* Problem Noted Date Resolved Date Primary osteoarthritis of left knee 03/30/2016 08/01/2017 Neck pain 07/25/2014 07/18/2020 Diarrhea 01/09/2011 04/14/2013 Abdominal pain, unspecified site 10/11/2005 04/14/2013 RECURRENT UTI'S 08/12/2005 01/31/2016 documented as of this encounter (statuses as of 12/14/2021) [facility] History of Past illness Narrative* Problem Noted Date Resolved Date Primary osteoarthritis of left knee 03/30/2016 08/01/2017 Neck pain 07/25/2014 07/18/2020 Diarrhea 01/09/2011 04/14/2013 Abdominal pain, unspecified site 10/11/2005 04/14/2013 RECURRENT UTI'S 08/12/2005 01/31/2016 documented as of this encounter (statuses as of 12/18/2021) [facility] History of Past illness Narrative* Problem Noted Date Resolved Date Primary osteoarthritis of left knee 03/30/2016 08/01/2017 Neck pain 07/25/2014 07/18/2020 Diarrhea 01/09/2011 04/14/2013 Abdominal pain, unspecified site 10/11/2005 04/14/2013 RECURRENT UTI'S 08/12/2005 01/31/2016 documented as of this encounter (statuses as of 01/10/2022) [facility] History of Past illness Narrative* Problem Noted Date Resolved Date Primary osteoarthritis of left knee 03/30/2016 08/01/2017 Neck pain 07/25/2014 07/18/2020 Diarrhea 01/09/2011 04/14/2013 Abdominal pain, unspecified site 10/11/2005 04/14/2013 RECURRENT UTI'S 08/12/2005 01/31/2016 documented as of this encounter (statuses as of 01/17/2022) [facility] History of Past illness Narrative* Problem Noted Date Resolved Date Primary osteoarthritis of left knee 03/30/2016 08/01/2017 Neck pain 07/25/2014 07/18/2020 Diarrhea 01/09/2011 04/14/2013 Abdominal pain, unspecified site 10/11/2005 04/14/2013 RECURRENT UTI'S 08/12/2005 01/31/2016 documented as of this encounter (statuses as of 01/25/2022) [facility] History of Past illness Narrative* Problem Noted Date Resolved Date Primary osteoarthritis of left knee 03/30/2016 08/01/2017 Neck pain 07/25/2014 07/18/2020 Diarrhea 01/09/2011 04/14/2013 Abdominal pain, unspecified site 10/11/2005 04/14/2013 RECURRENT UTI'S 08/12/2005 01/31/2016 documented as of this encounter (statuses as of 02/08/2022) [facility] History of Past illness Narrative* Problem Noted Date Resolved Date Primary osteoarthritis of left knee 03/30/2016 08/01/2017 Neck pain 07/25/2014 07/18/2020 Diarrhea 01/09/2011 04/14/2013 Abdominal pain, unspecified site 10/11/2005 04/14/2013 RECURRENT UTI'S 08/12/2005 01/31/2016 documented as of this encounter (statuses as of 02/11/2022) [facility] History of Past illness Narrative* Problem Noted Date Resolved Date Primary osteoarthritis of left knee 03/30/2016 08/01/2017 Neck pain 07/25/2014 07/18/2020 Diarrhea 01/09/2011 04/14/2013 Abdominal pain, unspecified site 10/11/2005 04/14/2013 RECURRENT UTI'S 08/12/2005 01/31/2016 documented as of this encounter (statuses as of 02/11/2022) [facility] History of Past illness Narrative* Problem Noted Date Resolved Date Primary osteoarthritis of left knee 03/30/2016 08/01/2017 Neck pain 07/25/2014 07/18/2020 Diarrhea 01/09/2011 04/14/2013 Abdominal pain, unspecified site 10/11/2005 04/14/2013 RECURRENT UTI'S 08/12/2005 01/31/2016 documented as of this encounter (statuses as of 02/12/2022) [facility] History of Past illness Narrative* Problem Noted Date Resolved Date Primary osteoarthritis of left knee 03/30/2016 08/01/2017 Neck pain 07/25/2014 07/18/2020 Diarrhea 01/09/2011 04/14/2013 Abdominal pain, unspecified site 10/11/2005 04/14/2013 RECURRENT UTI'S 08/12/2005 01/31/2016 documented as of this encounter (statuses as of 04/05/2022) [facility] History of Past illness Narrative* Problem Noted Date Resolved Date Primary osteoarthritis of left knee 03/30/2016 08/01/2017 Neck pain 07/25/2014 07/18/2020 Diarrhea 01/09/2011 04/14/2013 Abdominal pain, unspecified site 10/11/2005 04/14/2013 RECURRENT UTI'S 08/12/2005 01/31/2016 documented as of this encounter (statuses as of 04/21/2022) [facility] History of Past illness Narrative* Problem Noted Date Resolved Date Primary osteoarthritis of left knee 03/30/2016 08/01/2017 Neck pain 07/25/2014 07/18/2020 Diarrhea 01/09/2011 04/14/2013 Abdominal pain, unspecified site 10/11/2005 04/14/2013 RECURRENT UTI'S 08/12/2005 01/31/2016 documented as of this encounter (statuses as of 04/28/2022) [facility] History of Past illness Narrative* Problem Noted Date Resolved Date Primary osteoarthritis of left knee 03/30/2016 08/01/2017 Neck pain 07/25/2014 07/18/2020 Diarrhea 01/09/2011 04/14/2013 Abdominal pain, unspecified site 10/11/2005 04/14/2013 RECURRENT UTI'S 08/12/2005 01/31/2016 documented as of this encounter (statuses as of 04/30/2022) [facility] History of Past illness Narrative* Problem Noted Date Resolved Date Primary osteoarthritis of left knee 03/30/2016 08/01/2017 Neck pain 07/25/2014 07/18/2020 Diarrhea 01/09/2011 04/14/2013 Abdominal pain, unspecified site 10/11/2005 04/14/2013 RECURRENT UTI'S 08/12/2005 01/31/2016 documented as of this encounter (statuses as of 05/02/2022) [facility] History of Past illness Narrative* Problem Noted Date Resolved Date Primary osteoarthritis of left knee 03/30/2016 08/01/2017 Neck pain 07/25/2014 07/18/2020 Diarrhea 01/09/2011 04/14/2013 Abdominal pain, unspecified site 10/11/2005 04/14/2013 RECURRENT UTI'S 08/12/2005 01/31/2016 documented as of this encounter (statuses as of 05/04/2022) [facility] History of Past illness Narrative* Problem Noted Date Resolved Date Primary osteoarthritis of left knee 03/30/2016 08/01/2017 Neck pain 07/25/2014 07/18/2020 Diarrhea 01/09/2011 04/14/2013 Abdominal pain, unspecified site 10/11/2005 04/14/2013 RECURRENT UTI'S 08/12/2005 01/31/2016 documented as of this encounter (statuses as of 05/14/2022) [facility] History of Past illness Narrative* Problem Noted Date Resolved Date Primary osteoarthritis of left knee 03/30/2016 08/01/2017 Neck pain 07/25/2014 07/18/2020 Diarrhea 01/09/2011 04/14/2013 Abdominal pain, unspecified site 10/11/2005 04/14/2013 RECURRENT UTI'S 08/12/2005 01/31/2016 documented as of this encounter (statuses as of 05/15/2022) [facility] History of Past illness Narrative* Problem Noted Date Resolved Date Primary osteoarthritis of left knee 03/30/2016 08/01/2017 Neck pain 07/25/2014 07/18/2020 Diarrhea 01/09/2011 04/14/2013 Abdominal pain, unspecified site 10/11/2005 04/14/2013 RECURRENT UTI'S 08/12/2005 01/31/2016 documented as of this encounter (statuses as of 05/17/2022) [facility]2016 History of Past illness Narrative* Problem Noted Date Resolved Date Primary osteoarthritis of left knee 03/30/2016 08/01/2017 Neck pain 07/25/2014 07/18/2020 Diarrhea 01/09/2011 04/14/2013 Abdominal pain, unspecified site 10/11/2005 04/14/2013 RECURRENT UTI'S 08/12/2005 01/31/2016 documented as of this encounter (statuses as of 06/07/2022) [facility] History of Past illness Narrative* Problem Noted Date Resolved Date Primary osteoarthritis of left knee 03/30/2016 08/01/2017 Neck pain 07/25/2014 07/18/2020 Diarrhea 01/09/2011 04/14/2013 Abdominal pain, unspecified site 10/11/2005 04/14/2013 RECURRENT UTI'S 08/12/2005 01/31/2016 documented as of this encounter (statuses as of 07/02/2022) [facility] History of Past illness Narrative* Problem Noted Date Resolved Date Primary osteoarthritis of left knee 03/30/2016 08/01/2017 Neck pain 07/25/2014 07/18/2020 Diarrhea 01/09/2011 04/14/2013 Abdominal pain, unspecified site 10/11/2005 04/14/2013 RECURRENT UTI'S 08/12/2005 01/31/2016 documented as of this encounter (statuses as of 07/09/2022) [facility] History of Past illness Narrative* Problem Noted Date Resolved Date Primary osteoarthritis of left knee 03/30/2016 08/01/2017 Neck pain 07/25/2014 07/18/2020 Diarrhea 01/09/2011 04/14/2013 Abdominal pain, unspecified site 10/11/2005 04/14/2013 RECURRENT UTI'S 08/12/2005 01/31/2016 documented as of this encounter (statuses as of 07/23/2022) [facility] History of Past illness Narrative* Problem Noted Date Resolved Date Primary osteoarthritis of left knee 03/30/2016 08/01/2017 Neck pain 07/25/2014 07/18/2020 Diarrhea 01/09/2011 04/14/2013 Abdominal pain, unspecified site 10/11/2005 04/14/2013 RECURRENT UTI'S 08/12/2005 01/31/2016 documented as of this encounter (statuses as of 11/01/2022) [facility] History of Past illness Narrative* Problem Noted Date Diagnosed Date Resolved Date Primary osteoarthritis of left knee 03/30/2016 08/01/2017 Neck pain 07/25/2014 07/18/2020 Diarrhea 01/09/2011 04/14/2013 Abdominal pain, unspecified site 10/11/2005 04/14/2013 RECURRENT UTI'S 08/12/2005 01/31/2016 documented as of this encounter (statuses as of 11/12/2022) [facility] History of Past illness Narrative* Problem Noted Date Diagnosed Date Resolved Date Primary osteoarthritis of left knee 03/30/2016 08/01/2017 Neck pain 07/25/2014 07/18/2020 Diarrhea 01/09/2011 04/14/2013 Abdominal pain, unspecified site 10/11/2005 04/14/2013 RECURRENT UTI'S 08/12/2005 01/31/2016 documented as of this encounter (statuses as of 12/07/2022) [facility] History of Past illness Narrative* Problem Noted Date Diagnosed Date Resolved Date Primary osteoarthritis of left knee 03/30/2016 08/01/2017 Neck pain 07/25/2014 07/18/2020 Diarrhea 01/09/2011 04/14/2013 Abdominal pain, unspecified site 10/11/2005 04/14/2013 RECURRENT UTI'S 08/12/2005 01/31/2016 documented as of this encounter (statuses as of 12/27/2022) [facility]2016 History of Past illness Narrative* Problem Noted Date Diagnosed Date Resolved Date Primary osteoarthritis of left knee 03/30/2016 08/01/2017 Neck pain 07/25/2014 07/18/2020 Diarrhea 01/09/2011 04/14/2013 Abdominal pain, unspecified site 10/11/2005 04/14/2013 RECURRENT UTI'S 08/12/2005 01/31/2016 documented as of this encounter (statuses as of 01/01/2023) [facility]2016 History of Past illness Narrative* Problem Noted Date Diagnosed Date Resolved Date Primary osteoarthritis of left knee 03/30/2016 08/01/2017 Neck pain 07/25/2014 07/18/2020 Diarrhea 01/09/2011 04/14/2013 Abdominal pain, unspecified site 10/11/2005 04/14/2013 RECURRENT UTI'S 08/12/2005 01/31/2016 documented as of this encounter (statuses as of 01/08/2023) [facility] History of Past illness Narrative* Problem Noted Date Diagnosed Date Resolved Date Primary osteoarthritis of left knee 03/30/2016 08/01/2017 Neck pain 07/25/2014 07/18/2020 Diarrhea 01/09/2011 04/14/2013 Abdominal pain, unspecified site 10/11/2005 04/14/2013 RECURRENT UTI'S 08/12/2005 01/31/2016 documented as of this encounter (statuses as of 01/10/2023) [facility] History of Past illness Narrative* Problem Noted Date Diagnosed Date Resolved Date Primary osteoarthritis of left knee 03/30/2016 08/01/2017 Neck pain 07/25/2014 07/18/2020 Diarrhea 01/09/2011 04/14/2013 Abdominal pain, unspecified site 10/11/2005 04/14/2013 RECURRENT UTI'S 08/12/2005 01/31/2016 documented as of this encounter (statuses as of 01/11/2023) [facility] History of Past illness Narrative* Problem Noted Date Diagnosed Date Resolved Date Primary osteoarthritis of left knee 03/30/2016 08/01/2017 Neck pain 07/25/2014 07/18/2020 Diarrhea 01/09/2011 04/14/2013 Abdominal pain, unspecified site 10/11/2005 04/14/2013 RECURRENT UTI'S 08/12/2005 01/31/2016 documented as of this encounter (statuses as of 01/14/2023) [facility]2016 History of Past illness Narrative* Problem Noted Date Diagnosed Date Resolved Date Primary osteoarthritis of left knee 03/30/2016 08/01/2017 Neck pain 07/25/2014 07/18/2020 Diarrhea 01/09/2011 04/14/2013 Abdominal pain, unspecified site 10/11/2005 04/14/2013 RECURRENT UTI'S 08/12/2005 01/31/2016 documented as of this encounter (statuses as of 03/15/2023) [facility] History of Past illness Narrative* Problem Noted Date Diagnosed Date Resolved Date Primary osteoarthritis of left knee 03/30/2016 08/01/2017 Neck pain 07/25/2014 07/18/2020 Diarrhea 01/09/2011 04/14/2013 Abdominal pain, unspecified site 10/11/2005 04/14/2013 RECURRENT UTI'S 08/12/2005 01/31/2016 documented as of this encounter (statuses as of 06/26/2023) [facility] [place] noteThere may be information available, but it has not been provided by the sender.[facility] Work Phone: Evaluation note* Diagnosis Migraine without aura and without status migrainosus, not intractable Migraine without aura, without mention of intractable migraine without mention of status migrainosus Neck pain Cervicalgia [facility] Diagnosis Migraine without aura and without status migrainosus, not intractable- Primary Migraine without aura, without mention of intractable migraine without mention of status migrainosus [facility]* Diagnosis Atrophic vaginitis- Primary Postmenopausal atrophic vaginitis Recurrent UTI Urinary tract infection, site not specified Dysuria [facility] [place] [facility]* Diagnosis Dysuria [facility] [place] [facility]* Diagnosis H. pylori infection- Primary Helicobacter pylori (H. pylori) Chronic diarrhea Diarrhea Essential hypertension Unspecified essential hypertension Hypokalemia Hypopotassemia Recurrent UTI Urinary tract infection, site not specified [facility] [place] [facility]* Diagnosis Chronic diarrhea Diarrhea [facility]* Diagnosis Migraine without aura and without status migrainosus, not intractable Migraine without aura, without mention of intractable migraine without mention of status migrainosus Neck pain Cervicalgia [facility] [place] [facility]* Diagnosis Neck pain- Primary Cervicalgia Primary hypertension Unspecified essential hypertension [facility]* Diagnosis Neck pain Cervicalgia [facility]* Diagnosis Cervical spondylosis without myelopathy- Primary Arthropathy of cervical facet joint Cervical spondylosis without myelopathy [facility]* Diagnosis Primary osteoarthritis of both knees- Primary Primary localized osteoarthrosis, lower leg Cervical spondylosis without myelopathy [facility]* Diagnosis Cervical spondylosis without myelopathy- Primary [facility] [place] [facility]* Diagnosis Acute non-recurrent maxillary sinusitis- Primary Need for influenza vaccination Need for prophylactic vaccination and inoculation against influenza Mixed hyperlipidemia Encounter for screening for diabetes mellitus Screening for diabetes mellitus Cervical spondylosis without myelopathy Cervical spondylosis without myelopathy [facility] [place] [facility]* Diagnosis Migraine without aura and without status migrainosus, not intractable Migraine without aura, without mention of intractable migraine without mention of status migrainosus Neck pain Cervicalgia [facility]* Diagnosis URI, acute- Primary Acute upper respiratory infections of unspecified site Bacterial sinusitis Unspecified sinusitis (chronic) [facility] [place] [facility]* Diagnosis Viral illness- Primary Unspecified viral infection, in conditions classified elsewhere and of unspecified site Wheezing [facility] [place] [facility]* Diagnosis Functional bowel disorder Unspecified functional disorder of intestine Mixed hyperlipidemia [facility] [place] [facility]* Diagnosis Vulvar lump- Primary Other specified symptom associated with female genital organs [facility] [place] [facility]* Diagnosis Uncontrolled hypertension- Primary Unspecified essential hypertension Other fatigue Vitamin D deficiency Unspecified vitamin D deficiency Sinusitis, unspecified chronicity, unspecified location Recurrent UTI Urinary tract infection, site not specified Mixed hyperlipidemia Vitamin B12 deficiency Other B-complex deficiencies [facility]* Diagnosis Migraine without aura and without status migrainosus, not intractable Migraine without aura, without mention of intractable migraine without mention of status migrainosus Neck pain Cervicalgia [facility]* Diagnosis Recurrent infections- Primary Unspecified infectious and parasitic diseases Primary hypertension Unspecified essential hypertension Mixed hyperlipidemia VARUN (obstructive sleep apnea) Obstructive sleep apnea (adult) (pediatric) [facility] [place] [facility]* Diagnosis Migraine without aura and without status migrainosus, not intractable- Primary Migraine without aura, without mention of intractable migraine without mention of status migrainosus Neck pain Cervicalgia [facility]* Diagnosis Procedure not carried out- Primary Procedure not carried out for other reasons [facility]* Diagnosis Urinary frequency- Primary [facility] [place] [facility]* Diagnosis Acute non-recurrent pansinusitis- Primary [facility] Instruction Description Start Date Patient advised to follow-up with Primary Care Physician for BMI management. [facility] Work Phone: Instructions* Instruction Description Start Date Patient advised to follow-up with Primary Care Physician for BMI management. 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 Advance Directive(s) Chief Complaint Chief Complaint Description Start Date right hand pain Preliminary chief co mplaint data, not yet signed by the author as of Chief Complaint Description Start Date right hand pain Preliminary chief co mplaint data, not yet signed by the author as of Reason for Referral Specialty Diagnoses / Procedures Referred By Contac t Referred To Contact Diagnoses Cervical spondylosis without myelopathy Arthropathy of cervical facet joint Procedures CONSULT TO SPINE INTERVENTION Teresa Rodriguez PA-C [address] [place] [address] Referral ID Status Reason Start Date Expiration Date Visits Requested Visits Authorized [id number] Authorized PCP Requested Referral 01/10/2022 04/10/2022 3 3 Specialty Diagnoses / Procedures Referred By Contac t Referred To Contact Immunology Diagnoses Recurrent infections Procedures CONSULT TO IMMUNOLOGY OFFICE/OUTPATIENT [facility] 60-74 MINUTES Kenney Atkins MD [address] [place] [id number] Referral ID Status Reason Start Date Expiration Date Visits Requested Visits Authorized [id number] Authorized PCP Requested Referral 07/23/2022 07/23/2023 1 1 Health Concerns Infection Onset Date Last Indicated Resolved Time COVID-19 Rule-Out 05/07/2021 05/07/2021 05/08/2021 5:41 AM EST Infection Onset Date Last Indicated Resolved Time COVID-19 Rule-Out 04/29/2022 04/29/2022 04/30/2022 12:50 AM EST Additional Source Comments INFORMATION SOURCE (unrecogn ized section and content) DATE CREATED AUTHOR AUTHOR'S ORGANIZ ATION 05/20/2020 [facility] DATE CREATED AUTHOR AUTHOR'S ORGANIZ ATION 10/26/2020 [facility] DATE CREATED AUTHOR AUTHOR'S ORGANIZ ATION 03/14/2022 [facility] DATE CREATED AUTHOR AUTHOR'S ORGANIZ ATION 06/28/2023 [facility] Reason for Visit (unrecogniz ed section and content) Reason For Visit Description Start Date Follow-up by complaint Preliminary reason f or visit data, not yet signed by the author as of right hand pain Reason Comments Appointment Reason Onset Date Comments Refill Request 09/13/2021 Reason Comments UTI and urinary incontinence Reason Comments Chronic Migraine Reason Comments Follow Up Reason Comments Orders Results Reason Comments Established Patient 4 month follow up- m ed refills Reason Onset Date Comments Refill Request 11/20/2021 Reason Onset Date Comments Refill Request 11/30/2021 Reason Comments Patient Question Reason Comments Same Day Appointment neck pain Reason Comments Patient Request Reason Comments New Patient Neck Pain Pain (Shoulder Pain) Left Reason Onset Date Comments Refill Request 01/25/2022 Reason Comments medication instruction Reason Onset Date Comments Recheck 3 month Sinus Problem 10 days Immunizations 02/12/2022 Flu vaccination Reason Onset Date Comments Refill Request 04/04/2022 Reason Comments Chest Congestion cough x 10 days Reason Comments Results Reason Comments Sinus Infection,frequent/recurring X2 we eksSeen 04/23 for same Reason Comments Refill Request Reason Comments Vaginal Problem cyst Reason Comments Follow Up c/o dizziness when l ays down, fatigue and swollen lower legs Reason Onset Date Comments Refill Request 07/09/2022 Reason Comments Follow Up 6 week follow up-BP Reason Comments Migraine Reason Comments Ankle Injury left ankle pain from fall yesterday Reason Comments Insurance Authorization Reason Comments Urinary Frequency burning with urinati on, low back pain and odor x 5 days Reason Comments Medication Problem Reason Comments Sinus Problem sinus pressure, drai nage, cough, sore throat and headache x 9 days Reason Onset Date Comments Refill Request 08/21/2022 Reason Comments Medication Request Source Comments (unrecognize d section and content) In the event this informatio n is protected by the Federal Confidentiality of Alcohol and Drug Abuse Patient Records regulations: The Federal rules restrict any use of the information to criminally investigate or prosecute any alcohol or drug abuse patient.[facility]In the event this information is protected by the Federal Confidentiality of Alcohol and Drug Abuse Patient Records regulations: The Federal rules restrict any use of the information to criminally investigate or prosecute any alcohol or drug abuse patient.[facility] HamiltonIn the event this information is protected by the Federal Confidentiality of Alcohol and Drug Abuse Patient Records regulations: The Federal rules restrict any use of the information to criminally investigate or prosecute any alcohol or drug abuse patient.[facility] HamiltonIn the event this information is protected by the Federal Confidentiality of Alcohol and Drug Abuse Patient Records regulations: The Federal rules restrict any use of the information to criminally investigate or prosecute any alcohol or drug abuse patient.[facility] HamiltonIn the event this information is protected by the Federal Confidentiality of Alcohol and Drug Abuse Patient Records regulations: The Federal rules restrict any use of the information to criminally investigate or prosecute any alcohol or drug abuse patient.[facility] HamiltonIn the event this information is protected by the Federal Confidentiality of Alcohol and Drug Abuse Patient Records regulations: The Federal rules restrict any use of the information to criminally investigate or prosecute any alcohol or drug abuse patient.[facility] HamiltonIn the event this information is protected by the Federal Confidentiality of Alcohol and Drug Abuse Patient Records regulations: The Federal rules restrict any use of the information to criminally investigate or prosecute any alcohol or drug abuse patient.[facility] HamiltonIn the event this information is protected by the Federal Confidentiality of Alcohol and Drug Abuse Patient Records regulations: The Federal rules restrict any use of the information to criminally investigate or prosecute any alcohol or drug abuse patient.[facility] HamiltonIn the event this information is protected by the Federal Confidentiality of Alcohol and Drug Abuse Patient Records regulations: The Federal rules restrict any use of the information to criminally investigate or prosecute any alcohol or drug abuse patient.[facility] HamiltonIn the event this information is protected by the Federal Confidentiality of Alcohol and Drug Abuse Patient Records regulations: The Federal rules restrict any use of the information to criminally investigate or prosecute any alcohol or drug abuse patient.[facility] HamiltonIn the event this information is protected by the Federal Confidentiality of Alcohol and Drug Abuse Patient Records regulations: The Federal rules restrict any use of the information to criminally investigate or prosecute any alcohol or drug abuse patient.[facility] HamiltonIn the event this information is protected by the Federal Confidentiality of Alcohol and Drug Abuse Patient Records regulations: The Federal rules restrict any use of the information to criminally investigate or prosecute any alcohol or drug abuse patient.[facility] HamiltonIn the event this information is protected by the Federal Confidentiality of Alcohol and Drug Abuse Patient Records regulations: The Federal rules restrict any use of the information to criminally investigate or prosecute any alcohol or drug abuse patient.[facility] HamiltonIn the event this information is protected by the Federal Confidentiality of Alcohol and Drug Abuse Patient Records regulations: The Federal rules restrict any use of the information to criminally investigate or prosecute any alcohol or drug abuse patient.[facility] HamiltonIn the event this information is protected by the Federal Confidentiality of Alcohol and Drug Abuse Patient Records regulations: The Federal rules restrict any use of the information to criminally investigate or prosecute any alcohol or drug abuse patient.[facility] HamiltonIn the event this information is protected by the Federal Confidentiality of Alcohol and Drug Abuse Patient Records regulations: The Federal rules restrict any use of the information to criminally investigate or prosecute any alcohol or drug abuse patient.[facility] HamiltonIn the event this information is protected by the Federal Confidentiality of Alcohol and Drug Abuse Patient Records regulations: The Federal rules restrict any use of the information to criminally investigate or prosecute any alcohol or drug abuse patient.[facility] HamiltonIn the event this information is protected by the Federal Confidentiality of Alcohol and Drug Abuse Patient Records regulations: The Federal rules restrict any use of the information to criminally investigate or prosecute any alcohol or drug abuse patient.[facility] HamiltonIn the event this information is protected by the Federal Confidentiality of Alcohol and Drug Abuse Patient Records regulations: The Federal rules restrict any use of the information to criminally investigate or prosecute any alcohol or drug abuse patient.[facility] HamiltonIn the event this information is protected by the Federal Confidentiality of Alcohol and Drug Abuse Patient Records regulations: The Federal rules restrict any use of the information to criminally investigate or prosecute any alcohol or drug abuse patient.[facility] HamiltonIn the event this information is protected by the Federal Confidentiality of Alcohol and Drug Abuse Patient Records regulations: The Federal rules restrict any use of the information to criminally investigate or prosecute any alcohol or drug abuse patient.[facility] HamiltonIn the event this information is protected by the Federal Confidentiality of Alcohol and Drug Abuse Patient Records regulations: The Federal rules restrict any use of the information to criminally investigate or prosecute any alcohol or drug abuse patient.[facility] HamiltonIn the event this information is protected by the Federal Confidentiality of Alcohol and Drug Abuse Patient Records regulations: The Federal rules restrict any use of the information to criminally investigate or prosecute any alcohol or drug abuse patient.[facility] HamiltonIn the event this information is protected by the Federal Confidentiality of Alcohol and Drug Abuse Patient Records regulations: The Federal rules restrict any use of the information to criminally investigate or prosecute any alcohol or drug abuse patient.[facility] HamiltonIn the event this information is protected by the Federal Confidentiality of Alcohol and Drug Abuse Patient Records regulations: The Federal rules restrict any use of the information to criminally investigate or prosecute any alcohol or drug abuse patient.[facility] HamiltonIn the event this information is protected by the Federal Confidentiality of Alcohol and Drug Abuse Patient Records regulations: The Federal rules restrict any use of the information to criminally investigate or prosecute any alcohol or drug abuse patient.[facility] HamiltonIn the event this information is protected by the Federal Confidentiality of Alcohol and Drug Abuse Patient Records regulations: The Federal rules restrict any use of the information to criminally investigate or prosecute any alcohol or drug abuse patient.[facility] HamiltonIn the event this information is protected by the Federal Confidentiality of Alcohol and Drug Abuse Patient Records regulations: The Federal rules restrict any use of the information to criminally investigate or prosecute any alcohol or drug abuse patient.[facility] HamiltonIn the event this information is protected by the Federal Confidentiality of Alcohol and Drug Abuse Patient Records regulations: The Federal rules restrict any use of the information to criminally investigate or prosecute any alcohol or drug abuse patient.[facility] HamiltonIn the event this information is protected by the Federal Confidentiality of Alcohol and Drug Abuse Patient Records regulations: The Federal rules restrict any use of the information to criminally investigate or prosecute any alcohol or drug abuse patient.[facility] HamiltonIn the event this information is protected by the Federal Confidentiality of Alcohol and Drug Abuse Patient Records regulations: The Federal rules restrict any use of the information to criminally investigate or prosecute any alcohol or drug abuse patient.[facility] HamiltonIn the event this information is protected by the Federal Confidentiality of Alcohol and Drug Abuse Patient Records regulations: The Federal rules restrict any use of the information to criminally investigate or prosecute any alcohol or drug abuse patient.[facility] HamiltonIn the event this information is protected by the Federal Confidentiality of Alcohol and Drug Abuse Patient Records regulations: The Federal rules restrict any use of the information to criminally investigate or prosecute any alcohol or drug abuse patient.[facility] HamiltonIn the event this information is protected by the Federal Confidentiality of Alcohol and Drug Abuse Patient Records regulations: The Federal rules restrict any use of the information to criminally investigate or prosecute any alcohol or drug abuse patient.[facility] HamiltonIn the event this information is protected by the Federal Confidentiality of Alcohol and Drug Abuse Patient Records regulations: The Federal rules restrict any use of the information to criminally investigate or prosecute any alcohol or drug abuse patient.[facility] HamiltonIn the event this information is protected by the Federal Confidentiality of Alcohol and Drug Abuse Patient Records regulations: The Federal rules restrict any use of the information to criminally investigate or prosecute any alcohol or drug abuse patient.[facility] HamiltonIn the event this information is protected by the Federal Confidentiality of Alcohol and Drug Abuse Patient Records regulations: The Federal rules restrict any use of the information to criminally investigate or prosecute any alcohol or drug abuse patient.[facility] HamiltonIn the event this information is protected by the Federal Confidentiality of Alcohol and Drug Abuse Patient Records regulations: The Federal rules restrict any use of the information to criminally investigate or prosecute any alcohol or drug abuse patient.[facility] HamiltonIn the event this information is protected by the Federal Confidentiality of Alcohol and Drug Abuse Patient Records regulations: The Federal rules restrict any use of the information to criminally investigate or prosecute any alcohol or drug abuse patient.[facility] HamiltonIn the event this information is protected by the Federal Confidentiality of Alcohol and Drug Abuse Patient Records regulations: The Federal rules restrict any use of the information to criminally investigate or prosecute any alcohol or drug abuse patient.[facility] HamiltonIn the event this information is protected by the Federal Confidentiality of Alcohol and Drug Abuse Patient Records regulations: The Federal rules restrict any use of the information to criminally investigate or prosecute any alcohol or drug abuse patient.[facility] HamiltonIn the event this information is protected by the Federal Confidentiality of Alcohol and Drug Abuse Patient Records regulations: The Federal rules restrict any use of the information to criminally investigate or prosecute any alcohol or drug abuse patient.[facility] HamiltonIn the event this information is protected by the Federal Confidentiality of Alcohol and Drug Abuse Patient Records regulations: The Federal rules restrict any use of the information to criminally investigate or prosecute any alcohol or drug abuse patient.[facility] HamiltonIn the event this information is protected by the Federal Confidentiality of Alcohol and Drug Abuse Patient Records regulations: The Federal rules restrict any use of the information to criminally investigate or prosecute any alcohol or drug abuse patient.[facility] Care Teams (unrecognized sec tion and content) Fig Washer Relationship Specialty Start Date End Date Kenney Atkins MD [address] [place] [address] PCP - General Internal Medicine 09/03/16 Fig Washer Relationship Specialty Start Date End Date Kenney Atkins MD [address] [place] [address] PCP - General Internal Medicine 09/03/16 Fig Washer Relationship Specialty Start Date End Date Kenney Atkins MD [address] [place] [address] PCP - General Internal Medicine 09/03/16 Fig Washer Relationship Specialty Start Date End Date Kenney Atkins MD [address] [facility] [place] [address] PCP - General Internal Medicine 09/03/16 Fig Washer Relationship Specialty Start Date End Date Kenney Atkins MD [address] [place] [address] PCP - General Internal Medicine 09/03/16 Fig Washer Relationship Specialty Start Date End Date Kenney Atkins MD [address] [facility] [place] [address] PCP - General Internal Medicine 09/03/16 Fig Washer Relationship Specialty Start Date End Date Kenney Atkins MD [address] [facility] [place] [address] PCP - General Internal Medicine 09/03/16 Fig Washer Relationship Specialty Start Date End Date Kenney Atkins MD [address] [facility] [place] [address] PCP - General Internal Medicine 09/03/16 Fig Washer Relationship Specialty Start Date End Date Kenney Atknis MD [address] [facility] [place] [address] PCP - General Internal Medicine 09/03/16 Fig Washer Relationship Specialty Start Date End Date Kenney Atkins MD [address] [place] [address] PCP - General Internal Medicine 09/03/16 Fig Washer Relationship Specialty Start Date End Date Kenney Atkins MD [address] [place] [address] PCP - General Internal Medicine 09/03/16 Fig Washer Relationship Specialty Start Date End Date Kenney Atkins MD [address] [place] [address] PCP - General Internal Medicine 09/03/16 Fig Washer Relationship Specialty Start Date End Date Kenney Atkins MD [address] [facility] [place] [address] PCP - General Internal Medicine 09/03/16 Fig Washer Relationship Specialty Start Date End Date Kenney Atkins MD [address] [facility] [place] [address] PCP - General Internal Medicine 09/03/16 Fig Washer Relationship Specialty Start Date End Date Kenney Atkins MD [address] [place] [address] PCP - General Internal Medicine 09/03/16 Fig Washer Relationship Specialty Start Date End Date Kenney Atkins MD [address] [place] [address] PCP - General Internal Medicine 09/03/16 Fig Washer Relationship Specialty Start Date End Date Kenney Atkins MD [address] [place] [address] PCP - General Internal Medicine 09/03/16 Fig Washer Relationship Specialty Start Date End Date Kenney Atkins MD [address] [place] [address] PCP - General Internal Medicine 09/03/16 Fig Washer Relationship Specialty Start Date End Date Kenney Atkins MD [address] [place] [address] PCP - General Internal Medicine 09/03/16 Fig Washer Relationship Specialty Start Date End Date Kenney Atkins MD [address] [place] [address] PCP - General Internal Medicine 09/03/16 Fig Washer Relationship Specialty Start Date End Date Kenney Atkins MD [address] [place] [address] PCP - General Internal Medicine 09/03/16 Fig Washer Relationship Specialty Start Date End Date Kenney Atkins MD [address] [place] [address] PCP - General Internal Medicine 09/03/16 Fig Washer Relationship Specialty Start Date End Date Kenney Atkins MD [address] [place] [address] PCP - General Internal Medicine 09/03/16 Fig Washer Relationship Specialty Start Date End Date Kenney Atkins MD [address] [place] [address] PCP - General Internal Medicine 09/03/16 Fig Washer Relationship Specialty Start Date End Date Kenney Atkins MD [address] [place] [address] PCP - General Internal Medicine 09/03/16 Fig Washer Relationship Specialty Start Date End Date Santa Sethi MD [address] [place] [address] PCP - General Internal Medicine 01/14/23 Fig Washer Relationship Specialty Start Date End Date Kenney Atkins MD [address] [place] [address] PCP - General Internal Medicine 09/03/16 01/13/23 Santa Sethi MD [address] [place] [address] PCP - General Internal Medicine 01/14/23 Fig Washer Relationship Specialty Start Date End Date Santa Sethi MD [address] [place] [address] PCP - General Internal Medicine 01/14/23 FOR RECORDS PERTAINING TO PATIENTS WHO ARE OR HAVE BEEN ENROLLED IN A CHEMICAL DEPENDENCY/SUBSTANCEABUSE PROGRAM, SOME INFORMATION MAY BE OMITTED. This clinical summary was aggregated from multiple sources. Caution should be exercised in using it in the provision of clinical care. This summary normalizes information from multiple sources, and as a consequence, information in this document may materially change the coding, format and clinical context of patient data. In addition, data may be omitted in some cases. CLINICAL DECISIONS SHOULD BE BASED ON THE PRIMARY CLINICAL RECORDS. [facility]. provides no warranty or guarantee of the accuracy or completeness of information in this document.
== END | disposition home or self-care (01) ==
PROVIDERS: PCP Internal Medicine; Referring Provider Internal Medicine; Visit Provider Internal Medicine
DX: R06.09 Other forms of dyspnea (principal); E53.8 Deficiency of other specified B group vitamins; R53.83 Other fatigue; E78.00 Pure hypercholesterolemia, unspecified
CPT/HCPCS: 36415; 80053; 82607; 84439; 84443; 84481; 85025; 85652; 93005

== ENCOUNTER → 2023-07-07 | Outpatient (CLI) | payer MEDICARE, OTHER, SELFPAY ==
--- OUTSIDE RECORDS SUMMARY | 2023-07-07 12:00 | XMS RPT_ITS | CCD ---
Author Name Unknown Address [address] [place] [address] Organization [facility] Care Team Providers Care Family Engagement Specialist Name Role Phone ADITYA PORTILLO Attending Unavailable [...] Translations: [AMOXICILLIN] Drug Allergy 05-13-19 04 Hives [facility] Work Phone: (2 sources) Hmg-Coa Reductase Inhibitors (Statins) drug allergy 06-12-19 22 Unknown [facility] Work Phone: (2 sources) Penicillins (Antibiotic) drug allergy 06-12-19 22 hives [facility] Work Phone: (2 sources) Sulfamethoxazole / Trimethoprim Drug Allergy 06-12-19 22 headaches [facility] Work Phone: (20 sources) Albuterol; Translations: [ALBUTEROL] Drug Allergy 04-04-20 11 Intolerance [facility] Work Phone: (20 sources) Amitriptyline; Translations: [AMITRIPTYLINE] Drug Allergy 02-24-20 15 Mental Status Change [facility] Work Phone: (20 sources) Angiotensin Converting Enzyme (Jazmin) Inhibitors; Translations: [JAZMIN INHIBITORS] allergy to substance 05-13-19 04 Other: See Comments [facility] Work Phone: (20 sources) Caffeine; Translations: [CAFFEINE] Drug Allergy 05-13-19 04 Mental Status Change [facility] Work Phone: (20 sources) Codeine; Translations: [CODEINE] Drug Allergy 07-18-19 22 GI Upset, Other: See Comments [facility] Work Phone: (20 sources) Doxycycline; Translations: [DOXYCYCLINE HYCLATE] Drug Allergy 08-10-19 08 Hives [facility] Work Phone: (1 source) fluticasone / salmeterol; Translations: [ADVAIR DISKUS] Drug Allergy 07-18-19 22 sore mouth [facility] Work Phone: (1 source) levoFLOXacin; Translations: [LEVAQUIN] Drug Allergy 07-18-19 22 dizziness at 500mg dose [facility] Work Phone: (1 source) traMADol Drug Allergy 07-18-19 22 headache [facility] Work Phone: (1 source) PNEUMOVAX; Translations: [PNEUMOVAX] food allergy 07-18-19 22 arm swelled up for about 8 months [facility] Work Phone: (20 sources) HYDANTOINS; Translations: [HYDANTOINS] drug allergy 05-13-19 04 Other: See Comments [facility] Work Phone: (20 sources) fluticasone / salmeterol; Translations: [FLUTICASONE PROPION-SALMETEROL] Drug Allergy 04-04-[address] [facility] (5 sources) HMG-CoA reductase inhibitor; Translations: [MLPRJYP-TXT-KAK REDUCTASE INHIBITORS] Propensity to adverse reactions to drug 03-22-20 15 Other: See Comments [facility] (20 sources) levoFLOXacin; Translations: [LEVOFLOXACIN] Drug Allergy 10-14-[address] [facility] Work Phone: (20 sources) Streptococcus pneumoniae type [...] Drug Allergy 08-10-19 06 Other: See Comments [facility] (20 sources) Sulfamethoxazole / Trimethoprim; Translations: [SULFAMETHOXAZOLE-T RIMETHOPRIM] Drug Allergy 12-11-19 11 Rash, Other: See Comments [facility] Work Phone: (20 sources) traMADol; Translations: [TRAMADOL HCL] Drug Allergy 02-22-20 14 Other: See Comments [facility] Work Phone: (20 sources) HMG-CoA reductase inhibitor Propensity to adverse reactions to drug 03-22-20 15 Other: See Comments [facility] Medications Current Medications Medication Drug Class(es) Dates [...] 97.81 [degF] Lyly Calvillo PA-C Work Phone: [facility] 01-14-2023 09:31-0400 Body weight 73.48 kg Lyly Calvillo PA-C Work Phone: [facility] 01-14-2023 09:31-0400 Diastolic blood pressure 74 mm[Hg] Lyly NAIR-Renaldo Work Phone: [facility] 01-14-2023 09:31-0400 Heart rate 92 /min Lyly Athy PA-C Work Phone: [facility] 01-14-2023 09:31-0400 Respiratory rate 16 /min Lyly Athy PA-C Work Phone: [facility] 01-14-2023 09:31-0400 SaO2% (BldA) [Mass fraction] 99 % Lyly Athy PA-C Work Phone: [facility] 01-14-2023 09:31-0400 Systolic blood pressure 128 mm[Hg] Lyly Athy PA-C Work Phone: [facility] 01-08-2023 13:44-0400 Body temperature 97.7 [degF] Petey Campos MD Work Phone: [facility] 01-08-2023 13:44-0400 Body weight 73.94 kg Petey Campos MD Work Phone: [facility] 01-08-2023 13:44-0400 Diastolic blood pressure 80 mm[Hg] Petey Campos MD Work Phone: [facility] 01-08-2023 13:44-0400 Heart rate 88 /min Petey Campos MD Work Phone: [facility] 01-08-2023 13:44-0400 Respiratory rate 16 /min Petey Campos MD Work Phone: [facility] 01-08-2023 13:44-0400 SaO2% (BldA) [Mass fraction] 99 % Petey Campos MD Work Phone: [facility] 01-08-2023 13:44-0400 Systolic blood pressure 124 mm[Hg] Petey Campos MD Work Phone: [facility] 11-12-2022 11:06-0400 Body temperature 97 [degF] Altaf Katz APRN.TRAUMA NURSE Work Phone: [facility] 11-12-2022 11:06-0400 Body weight 70.31 kg Altaf Katz APRN.TRAUMA NURSE Work Phone: [facility] 11-12-2022 11:06-0400 Diastolic blood pressure 80 mm[Hg] [facility].TRAUMA NURSE Work Phone: [facility] 11-12-2022 11:06-0400 Heart rate 92 /min [facility].TRAUMA NURSE Work Phone: [facility] 11-12-2022 11:06-0400 Respiratory rate 16 /min [facility].TRAUMA NURSE Work Phone: [facility] 11-12-2022 11:06-0400 SaO2% (BldA) [Mass fraction] 99 % [facility] [employer].TRAUMA NURSE Work Phone: [facility] 11-12-2022 11:06-0400 Systolic blood pressure 122 mm[Hg] [facility] [employer] [facility].TRAUMA NURSE Work Phone: [facility] 07-23-2022 09:27-0400 Body height 152.4 cm Kenney Atkins MD Work Phone: [facility] 07-23-2022 09:27-0400 Body temperature 97.5 [degF] Kenney Atkins MD Work Phone: [facility] 07-23-2022 09:27-0400 Body weight 70.76 kg Kenney Atkins MD Work Phone: [facility] 07-23-2022 09:27-0400 Diastolic blood pressure 76 mm[Hg] Kenney Atkins MD Work Phone: [facility] 07-23-2022 09:27-0400 Heart rate 91 /min Kenney Atkins MD Work Phone: [facility] 07-23-2022 09:27-0400 Respiratory rate 12 /min Kenney Atkins MD Work Phone: [facility] 07-23-2022 09:27-0400 SaO2% (BldA) [Mass fraction] 96 % Kenney Atkins MD Work Phone: [facility] 07-23-2022 09:27-0400 Systolic blood pressure 126 mm[Hg] Kenney Atkins MD Work Phone: [facility] 06-04-2022 14:22-0500 Diastolic blood pressure 80 mm[Hg] Kenney Atkins MD Work Phone: [facility] 06-04-2022 14:22-0500 Systolic blood pressure 132 mm[Hg] Kenney Atkins MD Work Phone: [facility] 06-04-2022 13:23-0500 Body height 152.4 cm Kenney Atkins MD Work Phone: [facility] 06-04-2022 13:23-0500 Body temperature 97.7 [degF] Kenney Atkins MD Work Phone: [facility] 06-04-2022 13:23-0500 Body weight 69.4 kg Kenney Atkins MD Work Phone: [facility] 06-04-2022 13:23-0500 Heart rate 86 /min Kenney Atkins MD Work Phone: [facility] 06-04-2022 13:23-0500 Respiratory rate 12 /min Kenney Atkins MD Work Phone: [facility] 06-04-2022 13:23-0500 SaO2% (BldA) [Mass fraction] 98 % Kenney Atkins MD Work Phone: [facility] 05-17-2022 13:24-0500 Body weight 68.95 kg Nellie Glasco M[employer]ER AND BLENDER.TRAUMA NURSE Work Phone: [facility] 05-17-2022 13:24-0500 Diastolic blood pressure 70 mm[Hg] Nellie Glasco M[employer]ER AND BLENDER.TRAUMA NURSE Work Phone: [facility] 05-17-2022 13:24-0500 Systolic blood pressure 132 mm[Hg] Nellie Glasco MIXER AND BLENDER.TRAUMA NURSE Work Phone: [facility] 04-29-2022 09:25-0500 Body temperature 97.59 [degF] Petey Campos MD Work Phone: [facility] 04-29-2022 09:25-0500 Body weight 67.77 kg Petey Campos MD Work Phone: [facility] 04-29-2022 09:25-0500 Diastolic blood pressure 84 mm[Hg] Petey Campos MD Work Phone: [facility] 04-29-2022 09:25-0500 Heart rate 104 /min Peety Campos MD Work Phone: [facility] 04-29-2022 09:25-0500 Respiratory rate 18 /min Petey Campos MD Work Phone: [facility] 04-29-2022 09:25-0500 SaO2% (BldA) [Mass fraction] 98 % Petey Campos MD Work Phone: [facility] 04-29-2022 09:25-0500 Systolic blood pressure 124 mm[Hg] Petey Campos MD Work Phone: [facility] 04-23-2022 09:01-0500 Body temperature 98.6 [degF] Margaux Callow MIXER AND BLENDER.TRAUMA NURSE Work Phone: [facility] 04-23-2022 09:01-0500 Body weight 68.49 kg Margaux Callow M[employer]ER AND BLENDER.TRAUMA NURSE Work Phone: [facility] 04-23-2022 09:01-0500 Diastolic blood pressure 90 mm[Hg] Margaux Callow MIXER AND BLENDER.TRAUMA NURSE Work Phone: [facility] 04-23-2022 09:01-0500 Heart rate 96 /min Margaux Callow MIXER AND BLENDER.TRAUMA NURSE Work Phone: [facility] 04-23-2022 09:01-0500 Respiratory rate 18 /min Margaux Callow MIXER AND BLENDER.TRAUMA NURSE Work Phone: [facility] 04-23-2022 09:01-0500 SaO2% (BldA) [Mass fraction] 100 % Margaux Callow MIXER AND BLENDER.TRAUMA NURSE Work Phone: [facility] 04-23-2022 09:01-0500 Systolic blood pressure 138 mm[Hg] Margaux Callow DEJAN Work Phone: [facility] 02-12-2022 12:12-0400 Body temperature 97.39 [degF] Kenney Atkins MD Work Phone: [facility] 02-12-2022 12:12-0400 Body weight 71.67 kg Kenney Atkins MD Work Phone: [facility] 02-12-2022 12:12-0400 Diastolic blood pressure 80 mm[Hg] Kenney Atkins MD Work Phone: [facility] 02-12-2022 12:12-0400 Heart rate 77 /min Kenney Atkins MD Work Phone: [facility] 02-12-2022 12:12-0400 Respiratory rate 14 /min Kenney Atkins MD Work Phone: [facility] 02-12-2022 12:12-0400 SaO2% (BldA) [Mass fraction] 9 % Kenney Atkins MD Work Phone: [facility] 02-12-2022 12:12-0400 Systolic blood pressure 132 mm[Hg] Kenney Atkins MD Work Phone: [facility] 01-10-2022 15:09-0400 Body height 151.1 cm Teresa Rodriguez PA-C Work Phone: [facility] 01-10-2022 15:09-0400 Body weight 72.08 kg Teresa Rodriguez PA-C Work Phone: [facility] 01-10-2022 15:09-0400 Diastolic blood pressure 67 mm[Hg] Teresa Rodriguez PA-C Work Phone: [facility] 01-10-2022 15:09-0400 Heart rate 80 /min Teresa Rodriguez PA-C Work Phone: [facility] 01-10-2022 15:09-0400 SaO2% (BldA) [Mass fraction] 99 % Teresa Rodriguez PA-C Work Phone: [facility] 01-10-2022 15:09-0400 Systolic blood pressure 153 mm[Hg] Teresa Rodriguez PA-C Work Phone: [facility] 12-14-2021 13:34-0400 Body height 149.9 cm Kenney Atkins MD Work Phone: [facility] 12-14-2021 13:34-0400 Body temperature 97.81 [degF] Kenney Atkins MD Work Phone: [facility] 12-14-2021 13:34-0400 Body weight 69.85 kg Kenney Atkins MD Work Phone: [facility] 12-14-2021 13:34-0400 Diastolic blood pressure 72 mm[Hg] Kenney Atkins MD Work Phone: [facility] 12-14-2021 13:34-0400 Heart rate 68 /min Kenney Atkins MD Work Phone: [facility] 12-14-2021 13:34-0400 Respiratory rate 12 /min Kenney Atkins MD Work Phone: [facility] 12-14-2021 13:34-0400 SaO2% (BldA) [Mass fraction] 98 % Kenney Atkins MD Work Phone: [facility] 12-14-2021 13:34-0400 Systolic blood pressure 138 mm[Hg] Kenney Atkins MD Work Phone: [facility] 11-13-2021 09:45-0400 Body height 149.9 cm Kenney Atkins MD Work Phone: [facility] 11-13-2021 09:45-0400 Body temperature 98.1 [degF] Kenney Atkins MD Work Phone: [facility] 11-13-2021 09:45-0400 Body weight 70.76 kg Kenney Atkins MD Work Phone: [facility] 11-13-2021 09:45-0400 Diastolic blood pressure 72 mm[Hg] Kenney Atkins MD Work Phone: [facility] 11-13-2021 09:45-0400 Heart rate 83 /min Kenney Atkins MD Work Phone: [facility] 11-13-2021 09:45-0400 Respiratory rate 12 /min Kenney Atkins MD Work Phone: [facility] 11-13-2021 09:45-0400 SaO2% (BldA) [Mass fraction] 97 % Kenney Atkins MD Work Phone: [facility] 11-13-2021 09:45-0400 Systolic blood pressure 132 mm[Hg] Kenney Atkins MD Work Phone: [facility] 11-09-2021 09:09-0400 Body height 149.9 cm Jennifer Ledesma PA-C Work Phone: [facility] 11-09-2021 09:09-0400 Body temperature 97.7 [degF] Jennifer Ledesma PA-C Work Phone: [facility] 11-09-2021 09:09-0400 Body weight 71.67 kg Jennifer Ledesma PA-C Work Phone: [facility] 11-09-2021 09:09-0400 Diastolic blood pressure 76 mm[Hg] Jennifer Ledesma PA-C Work Phone: [facility] 11-09-2021 09:09-0400 Heart rate 98 /min Jennifer Ledesma PA-C Work Phone: [facility] 11-09-2021 09:09-0400 Respiratory rate 14 /min Jennifer Ledesma PA-C Work Phone: [facility] 11-09-2021 09:09-0400 SaO2% (BldA) [Mass fraction] 97 % Jennifer Ledesma PA-C Work Phone: [facility] 11-09-2021 09:09-0400 Systolic blood pressure 142 mm[Hg] Jennifer Ledesma PA-C Work Phone: [facility] 11-01-2021 11:19-0400 Body height 152.4 cm Terrance Mccain MD Work Phone: [facility] 11-01-2021 11:19-0400 Body weight 70.53 kg Terrance Mccain MD Work Phone: [facility] 11-01-2021 11:19-0400 Diastolic blood pressure 71 mm[Hg] Terrance Mccain MD Work Phone: [facility] 11-01-2021 11:19-0400 Heart rate 86 /min Terrance Mccain MD Work Phone: [facility] 11-01-2021 11:19-0400 Systolic blood pressure 137 mm[Hg] Terrance Mccain MD Work Phone: [facility] NEGATED: Highlighted [id number] 10:48-0400 Body height 152.4 cm Madison Delgadoaro AT [facility] Work Phone: NEGATED: Highlighted [id number] 10:48-0400 Body height 152 cm Madison Sandyaro AT [facility] Work Phone: NEGATED: Highlighted [id number] 10:48-0400 Body mass index (BMI) [Ratio] 30.18 kg/m2 Madison Sandyaro AT [facility] Work Phone: NEGATED: Highlighted [id number] 10:48-0400 Body weight 69.85 kg Madison Applebobbyaro AT [facility] Work Phone: NEGATED: Highlighted [id number] 10:48-0400 Body weight 70 kg Madison Sandyaro AT [facility] Work Phone: NEGATED: Highlighted [id number] 10:17-0500 Body height 152.4 cm Maureen Dumont RN [facility] Work Phone: NEGATED: Highlighted [id number] 10:17-0500 Body height 152 cm Maureen Dumont RN [facility] Work Phone: NEGATED: Highlighted [id number] 10:17-0500 Body mass index (BMI) [Ratio] 30.18 kg/m2 Maureen Dumont RN [facility] Work Phone: NEGATED: Highlighted [id number] 10:17-0500 Body weight 69.85 kg Maureen Dumont RN [facility] Work Phone: NEGATED: Highlighted [id number] 10:170500 Body weight 70 kg Maureen Dumont RN [facility] Work Phone: Encounters Encounter Date Encounter [...] Author Start: 05-14-2025 DIABETES SCREEN DIABETES SCREEN [facility] Start: 05-14-2025 Diabetes Screening Diabetes Screening [facility] Start: 11-29-2023 DIABETES SCREEN DIABETES SCREEN [facility] Start: 04-28-2023 Advance Directive Discussion Advance Directive Discussion [facility] Start: 04-28-2023 Depression Assessment Depression Assessment [facility] Start: 02-12-2023 ANNUAL PCP TEAM CHRONIC DISEASE VISIT ANNUAL PCP TEAM CHRONIC DISEASE VISIT [facility] Start: 12-27-[address] [facility] Start: 12-14-2022 ANNUAL PCP TEAM CHRONIC DISEASE VISIT ANNUAL PCP TEAM CHRONIC DISEASE VISIT [facility] Start: 11-13-2022 ANNUAL PCP TEAM CHRONIC DISEASE VISIT ANNUAL PCP TEAM CHRONIC DISEASE VISIT [facility] Start: 07-10-2022 ANNUAL PCP TEAM CHRONIC DISEASE VISIT ANNUAL PCP TEAM CHRONIC DISEASE VISIT [facility] Start: 07-10-2022 BP CONTROLLED (<130/80) BP CONTROLLED (<130/80) [facility] Start: 05-15-2022 End: 07-15-2022 Basic metabolic 2000 panel - Serum or Plasma BASIC METABOLIC PNL Lab Routine Mixed hyperlipidemia Expected: 05/15/2022, Expires: 07/15/2022 [facility] Work Phone: Immunizations Immunization Date Immunization Notes Care Provider Fa cili 02-12-2022 influenza, high-dose , quadrivalent vaccine (FLUZONE HIGH DOSE QUADRIVALENT) Kenney Atkins MD Work Phone: [facility] 02-12-2022 influenza virus vacc ine, unspecified formulation Petey Campos MD Work Phone: [facility] 11-28-2020 zoster vaccine recombinant Terrance Mccain MD Work Phone: [facility] Work Phone: 08-03-2020 zoster vaccine recombinant Terrance Mccain MD Work Phone: [facility] Work Phone: 01-04-2020 influenza, high-dose , quadrivalent vaccine (FLUZONE HIGH DOSE QUADRIVALENT) Terrance Mccain MD Work Phone: [facility] 02-02-2019 influenza, high dose seasonal, preservative-free Terrance Mccain MD Work Phone: [facility] 02-23-2015 influenza, high dose seasonal, preservative-free Terrance Mccain MD Work Phone: [facility] 02-04-2014 influenza, injectabl e, quadrivalent, preservative free Terrance Mccain MD Work Phone: [facility] 03-19-2013 influenza virus vacc ine, unspecified formulation Terrance Mccain MD Work Phone: [facility] 03-03-2012 influenza virus vacc ine, unspecified formulation Terrance Mccain MD Work Phone: [facility] 01-29-2011 influenza virus vacc ine, unspecified formulation Terrance Mccain MD Work Phone: [facility] 02-09-2010 influenza virus vacc ine, unspecified formulation Terrance Mccain MD Work Phone: [facility] Work Phone: 08-10-2007 tetanus and diphther ia toxoids, adsorbed, preservative free, for adult use (2 Lf of tetanus toxoid and 2 Lf of diphtheria toxoid) Terrance Mccain MD Work Phone: [facility] 03-06-2007 influenza virus vacc ine, unspecified formulation Terrance Mccain MD Work Phone: [facility] Work Phone: 03-15-2005 influenza virus vacc ine, unspecified formulation Terrance Mccain MD Work Phone: [facility] Work Phone: 05-06-1994 pneumococcal polysaccharide vaccine, 23 valent Terrance Mccain MD Work Phone: [facility] Work Phone: Payers Date Payer Category Payer Private Health Insurance [facility] AARP SUPPLEMENT [id number] 2014-Present [phone] [address] [place] [address] Indemnity [id number] 2014 Private Health Insurance [facility] AARP SUPPLEMENT [id number] 2014-Present [phone] [address] [place] [address] Indemnity [id number] 2014 Unknown [id number] 2007 Medicare [id number] 2007 Medicare MEDICARE MEDICAR E A AND B [id number] 2007-Present [phone] [place] [address] Medicare [id number] 2007 Medicare MEDICARE MEDICAR E A AND B [id number] 2007-Present [phone] [place] [address] Medicare [id number] 1941 Unknown [id number] Unknown [id number] Social History Date Type Detail Facility Start: 07-17-2021 End: 07-17-2021 Assertion Unknown if ever smoked [facility] Work Phone: Start: 11-18-2011 End: 12-14-2021 Tobacco smoking status NHIS Never smoked tobacco [facility] Start: 07-10-2021 End: 07-23-2022 Alcohol intake Current non-drinker of alcohol (finding) [facility] Start: 1940 Sex Assigned At Not on file C [facility] Start: 10-22-2021 End: 03-12-2022 Exposure to SARS-CoV-2 (event) Not sure [facility] Start: 11-18-2011 End: 12-14-2021 Tobacco use and exposure Smokeless tobacco non-user [facility] Start: 11-01-2022 End: 11-12-2022 History of Social function [facility] Start: 11-01-2022 End: 11-12-[address] [facility] Adult Depression Screening Assessment [address] [facility] Start: 04-22-2023 Alcohol intake Ex-drinker (finding) [facility] NEGATED: Highlighted rowStart: 06-12-2021 End: 06-12-2021 Alcohol use Alcohol use [facility] Work Phone: NEGATED: Highlighted rowStart: 06-12-2021 End: 06-12-2021 Details of drug misuse behavior Details of drug misuse behavior [facility] Work Phone: NEGATED: Highlighted rowStart: 06-12-2021 End: 06-12-2021 Employment detail Employment detail [facility] Work Phone: NEGATED: Highlighted rowStart: 06-12-2021 End: 06-12-2021 Assertion Never smoker [facility] Work Phone: NEGATED: Highlighted rowStart: 07-17-2021 End: 07-17-2021 Employment detail Employment detail [facility] Work Phone: Medical Equipment Procedure Code Equipment Code Equipment Origin al Text Equipment Identifier Dates Yevgeniy Bn Smpx P Ra dpq Fd Strl - [id number] Start: 02-02-2014 Comp Fem 4 Rt Kn Ps Yevgeniy Trthln - [id number] Start: 02-02-2014 Ins Tib 4 11mm K n X3 Ps Trthln - [id number] Start: 02-02-2014 Ins Tib 4 11mm K n X3 Ps Trthln - [id number] Start: 02-23-2014 Comp Pat 3 10mm 32mm Asym - [id number] Start: 02-02-2014 Baseplt Tib Trth ln 4 Kn Yevgeniy - [id number] Start: 02-02-2014 Clinical Notes 03-30-2016 to [...] calling: self Call patient at: on cell [phone] (home) [phone] (cell) Was an appointment scheduled: No Closing statement: Results or non-symptom based questions: Thank you for calling [facility], your call will be returned within the next business day. Linda Martínez documented in this encounter [facility] 04-22-2023 Note HNO ID: [id number] Author: Jennifer Ledesma PA-C Service: ? Author Type: Physician Lcpc Type: Progress Notes Filed: 04/22/2023 4:01 PM Note Text: [facility] [place] Some elements copied from his previous note, [...] not exceed 30 mg per day. fremanezumab-vfrm ([facility] AUTOINJECTOR) 225 mg/1.5 mL auto-injector Inject 1.5 [...] Vaginitis > Topical Estrogen - Refilled at [facility] > UTI - Restart Topical estrogen and daily Macrobid 50 mg once daily Urine Culture sent today > [address] [place], PA-C for refill JOHANNA Combs MT, PA-C Electronically signed [facility] 01-14-2023 Note HNO ID: [id number] Author: Lyly Calvillo PA-C Service: ? Author Type: Physician Lcpc Type: Progress Notes Filed: 01/14/2023 11:03 AM Note Text: This note was created using Widgetlabsriter. Demi Taylor is a 82 year old [...] daily as needed. 30 capsule 0 fremanezumab-vfrm ([facility] Health[facility]Y AUTOINJECTOR) 225 mg/1.5 mL auto-injector Inject 1.5 [...] (Patient not taking: (more content not included)... [facility] 01-14-2023 History of Present illness Narrative This note was created using Widgetlabsriter. Subjective Kendal Taylor is a 82 year [...] B/L bunion surgery - [facility]. Solis [facility] PAST SURGICAL HISTORY OF 02/02/2014 right [...] Lyly Calvillo PA-C documented in this encounter [facility] 01-11-2023 Miscellaneous Notes Left detailed message on identifiable voicemail Is on the correct antibiotic according to urine culture please make sure symptoms are improving. If symptoms or not improving she should follow-up with primary care. documented in this encounter [facility] 01-10-2023 Miscellaneous Notes Patient returned call. She [...] Flower Baez LPN documented in this encounter [facility] 01-08-2023 Note HNO ID: [id number] Author: Petey Campos MD Service: ? Author [...] not exceed 30 mg per day. fremanezumab-vfrm ([facility] AUTOINJECTOR) 225 mg/1.5 mL auto-injector Inject 1.5 [...] arm swelled up for about 8 months [id number] Red* Other: See Comments pt declines-not work [...] is doing a fellowship. Petey Campos MD [facility] 01-08-2023 History of Present illness Narrative [...] arm swelled up for about 8 months Ehraufn-Ydy-Nbl Red* Other: See Comments pt declines-not work [...] Petey Campos MD documented in this encounter [facility] 12-31-2022 Miscellaneous Notes PA for Robaxin completed and approved documented in this encounter [facility] 11-18-2022 Note Patient Outreach (KATI TNAV) TAYLORKENDAL SIDDIQUI ([id number]) 1940 F Date Time Provider Department 11/18/22 CAMI RATLIFF During your visit today, we recorded the following information about you: Cami Ratliff MA 11/18/2022 1:39 PM Signed POPULATION HEALTH NAVIGATION OUTREACH Action/ no answer MobileSuiteshart message sent ANNUAL MEDICARE WELLNESS EXAN ADVANCE DIRECTIVE DISCUSSION Patient Identified by Name and : NO Outreach Outcome/Action Unable to reach patient: Phone number not valid / voicemail full Consumrhart message sent Did you use a PCP [...] arm swelled up for about 8 months VOJVQUQ-BSF-CWK REDUCTASE INHIBIT*03/22/2015 14 - Other: See Comments Comments: pt declines-not work ULTRAM (TRAMADOL HCL) 02/21/2014 14 - Other: See Comments Comments: headache Date Reviewed: 11/12/2022 Reviewed by: Altaf Katz APRN.TRAUMA NURSE - Fully Assessed Reason for Visit: Population [...] MIST) 0.65 % nasal spray Use 1 Winfield in the nose as needed for cold/allergy [...] Date 11/18/2022 Not (more content not included)... [facility] 11-18-2022 Note HNO ID: [id number] Author: Cami Ratliff MA Service: ? Author Type: Construction Equipment Overhauler Type: Progress Notes Filed: 11/18/2022 1:39 PM Note Text: POPULATION HEALTH NAVIGATION OUTREACH Action/I no answer [employer] message sent ANNUAL MEDICARE WELLNESS EXAN ADVANCE DIRECTIVE DISCUSSION Patient Identified by Name and : NO Outreach Outcome/Action Unable to reach patient: Phone number not valid / voicemail full Consumrhart message sent Did you use a PCP [...] Ratliff MA November 18, 2022 9:05 AM [facility] 11-12-2022 Note HNO ID: [id number] Author: Altaf Katz APRN.CNP Service: ? Author [...] with plan of care. Altaf Katz APRN.CNP [facility] 11-12-2022 History of Present illness Narrative [...] Altaf Katz APRN.CNP documented in this encounter [facility] 11-01-2022 Note HNO ID: [id number] Author: Terrance Mccain MD Service: ? Author [...] visit. Either the patient or their legal major account representative has been informed of the risks and benefits of -- and alternatives to -- treatment through a remote evaluation and consents to proceed with the evaluation remotely. [facility] [place] Follow up visit History of Present Illness: [...] this appointment visit was 20 minutes of tect-bj-dgrr time with the patient. At least 50% of this time was spent in counseling, explanation of diagnosis, planning of further management, and coordination of care. Portions of this note have been composed using voice recognition and may contain hot dipper errors Terrance Mccain M.D. [facility] Associate Staff Department of Neurology Referring provider: No referring provider defined for this encounter. Primary care provider: Kenney Atkins [address] [place] [address] [facility] 11-01-2022 History of Present illness Narrative [...] visit. Either the patient or their legal major account representative has been informed of the risks and benefits of -- and alternatives to -- treatment through a remote evaluation and consents to proceed with the evaluation remotely. [facility] [place] Follow up visit History of Present Illness: [...] this appointment visit was 20 minutes of xkqb-gv-atak time with the patient. At least 50% of this time was spent in counseling, explanation of diagnosis, planning of further management, and coordination of care. Portions of this note have been composed using voice recognition and may contain hot dipper errors Terrance Mccain M.D. [facility] Associate Staff Department of Neurology Referring provider: No referring provider defined for this encounter. Primary care provider: Kenney Atkins [address] [id number] documented in this encounter [facility] 08-21-2022 Miscellaneous Notes ABRAM: 06/18/2022 NOV: Visit [...] patient. Linda Martínez documented in this encounter [facility] 07-23-2022 Note HNO ID: [id number] Author: Kenney Atkins MD Service: ? Author [...] mg but just the 25, and needs terminologist medication to be sent for the same [...] B/L bunion surgery - Dr. Solis - [facility] PAST SURGICAL HISTORY OF 02/02/2014 right [...] 1 gram tablet (more content not included)... [facility] 07-23-2022 History of Present illness Narrative [...] mg but just the 25, and needs terminologist medication to be sent for the same [...] B/L bunion surgery - Dr. Solis - [facility] PAST SURGICAL HISTORY OF 02/02/2014 right [...] Kenney Atkins MD documented in this encounter [facility] 07-09-2022 Miscellaneous Notes Physician: Wan Call from [...] Shawanda Antonia Adm documented in this encounter [facility] 06-07-2022 Miscellaneous Notes Left detailed message on [employer]. ----- Message from Kenney Atkins MD sent at 06/06/2022 8:06 AM EST ----- Please let her know that her thyroid, vit b12 and vit d which are normal Regards, Kenney Atkins MD documented in this encounter [facility] 06-04-2022 History of Present illness Narrative Reason [...] B/L bunion surgery - Dr. Solis - [facility] PAST SURGICAL HISTORY OF 02/02/2014 right [...] Kenney Atkins MD documented in this encounter 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 Solis - [facility] PAST SURGICAL HISTORY OF 02/02/2014 right [...] MIST) 0.65 % nasal spray Use 1 Winfield in the nose as needed for cold/allergy [...] 0.5 tablets by mouth once daily. fremanezumab-vfrm ([facility]ruce HealthOVY AUTOINJECTOR) 225 mg/1.5 mL auto-injector Inject 1.5 [...] PNEUMOVAX 23 [PNEUMOCOCCAL 23-SANTOSH*08/09/2005 Other: See Comments SLDGUGU-GST-OOB REDUCTASE INHIBIT*03/22/2015 Other: See Comments ULTRAM [TRAMADOL HCL] 02/21/2014 Other: See Comments Fully Assessed 05/17/2022 REVIEW OF SYSTEMS Expanded ROS: N/A Allergies and current medication updated:Yes EXAM: BP 132/70 Wt 152 lb (68.9kg) GENERAL: pleasant, female in no apparent distress HEENT: Normocephalic, atraumatic, and no lesions CHEST: Normal inspiratory effort PELVIC: external genitalia normal, normal Bartholin's glands, urethra, Gackle's glands, physiologic discharge present, normal appearing perineal [...] 3 - Low documented in this encounter [facility] 05-15-2022 Miscellaneous Notes ----- Message from Kenney Atkins MD sent at 05/15/2022 6:29 AM EST ----- Will address in upcoming office visit documented in this encounter [facility] 05-13-2022 Miscellaneous Notes Sent her the fluconazole. Regards, Kenney Atkins MD Pt reports she was recently on antibiotics for a sinus infection. She reports she has a vaginal yeast infection and asking if provider would order her treatment? Requesting [facility]. Please call pt with update. Thank you. documented in this encounter [facility] 05-02-2022 Miscellaneous Notes Next appointment 05/21/22 Patient [...] advise. Michell Canales documented in this encounter [facility] 04-29-2022 History of Present illness Narrative Patient [...] MIST) 0.65 % nasal spray Use 1 Winfield in the nose as needed for cold/allergy [...] arm swelled up for about 8 months Isbfpfr-Msr-Asf Red* Other: See Comments pt declines-not work [...] Petey Campos MD documented in this encounter [facility] 04-24-2022 Miscellaneous Notes Left detailed message on a secured voicemail. Violet Ac Please notify of negative influenza and covid test. Continue comfort measures for symptoms as you would for a cold. Any worsening symptoms follow up with PCP or ER. Nicole Webster APRN.JACKLYN documented in this encounter [facility] 04-23-2022 History of Present illness Narrative Subjective [...] B/L bunion surgery - Dr. Solis - [facility] PAST SURGICAL HISTORY OF 02/02/2014 right [...] [Levofloxacin], Pneumovax 23 [Pneumococcal 23-Santosh Ps Vaccine], Fgvoypj-Jud-Vvt Reductase Inhibitors, and Ultram [Tramadol Hcl] MEDICATIONS [...] up is needed Increase fluids Margaux Aaron APRN.TRAUMA NURSE documented in this encounter [facility] 04-05-2022 Miscellaneous Notes ABRAM: 01/10/2022 NOV: 05/24/2022 [...] Imtiaz Christopher Pss documented in this encounter [facility] 02-12-2022 History of Present illness Narrative Reason [...] in 3 months with the combination. Sees [facility] for trigger finger and mucinous cyst , was drained but it is coming back She is still working at [email or web address] 4 days a week and one days [...] B/L bunion surgery - Dr. Solis - [facility] PAST SURGICAL HISTORY OF 02/02/2014 right [...] Kenney Atkins MD documented in this encounter [facility] 02-08-2022 Miscellaneous Notes She should not take the Galt Narcotic Pain Meds while on Diflucan it can interact. Jennifer Ledesma, MPAS, MT, PA-C Pt advised and verbalizes understanding. Janine Bo MA documented in this encounter 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 Advised her to ask pcp to send 30 day supply to [facility]. Pended. Patient ask office to phone her when Rx is sent. documented in this encounter [facility] 01-17-2022 Miscellaneous Notes Received voicemail 01-17-22 at 2:39 PM. I'm Kendal Taylor. My date is 42. I've seen Teresa Rodriguez on January 10 and he wanted me to get an appointment with Dr. Morro Otto and I have not been able to get an appointment it's going to have to be through your office. Thank you. My phone number is [phone]. Forwarded to Pain PSS pool to contact patient to schedule. DOROTHY Ho, RN January 17, 2022 3:35 PM documented in this encounter [facility] 01-10-2022 History of Present illness Narrative Images from the original note were not included. Teresa Rodriguez PA-C [facility] [address] [address] 01/10/2022 ASSESSMENT AND PLAN: Assessment : Encounter [...] today with this patient visit. This includes pytv-so-cdif time, review of chart records regarding conservative care history, spine-pertinent imaging, and communication/care coordination with referring provider, problem-specific history-taking and counseling/education regarding treatment options. cc: SELF Phone: N/A Fax: Results of consultation to be transmitted via electronic medical record for those providers who practice within [facility] or with access to [employer] via MD Connect, or via letter. 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 120 tablet 3 fremanezumab-vfrm ([facility] AUTOINJECTOR) 225 mg/1.5 mL auto-injector Inject 1.5 [...] injection (DEFINITY) INTRAVENOUS DIRECTED PRN Seth Pérez APRN.TRAUMA NURSE sodium chloride 0.9 % (flush) 10 mL (BD POSIFLUSH) 10 mL INTRAVENOUS DIRECTED PRN Seth Pérez APRN.TRAUMA NURSE bupivacaine 7.5 mg injection (SENSORCAINE) 3 mL OTHER As Directed Clinton Aguirre MD 7.5 mg at 11/30/19 1331 Allergies: Jazmin Inhibitors, Advair Diskus [Fluticasone Propion-Salmeterol], Albuterol, Amitriptyline, Amoxicillin, Bactrim [Sulfamethoxazole-Trimethoprim], Caffeine, Codeine, Doxycycline Hyclate, Hydantoins, Levaquin [Levofloxacin], Pneumovax 23 [Pneumococcal 23-Santosh Ps Vaccine], Ziehqqz-Ypb-Zos Reductase Inhibitors, and Ultram [Tramadol Hcl] PAST [...] B/L bunion surgery - Dr. Solis - [facility] PAST SURGICAL HISTORY OF 02/02/2014 right [...] L: 5/5 Triceps R: 5/5 L: 5/5 Soap Drier Operator R: 5/5 L: 5/5 Interossei R: 5/5 [...] See discussion above documented in this encounter [facility] 12-18-2021 Miscellaneous Notes Patient calls and is notified that prescription was sent to [facility]. Ramandeep Barry RN Patient states her script for Galt 5/325 was sent to [facility] on 12/14. Asking for script to be cancelled at [facility] and sent to [facility] in [place] please. Please call patient once script sent to [facility], per request. Thank you. documented in this encounter [facility] 12-14-2021 History of Present illness Narrative Reason for Visit Patient presents with: Same Day Appointment: neck pain Kendal Taylor is a 81 year old female who presents here today for Above Complaints. Health Maintenance COVID-19 VACCINE(1) BP CONTROLLED (<130/80) DTAP,TDAP,TD(1 - Tdap) DEPRESSION SCREENING ADVANCE DIRECTIVE DISCUSSION HPI Has a pinched nerves in the back, is seeing Dr. Shin in [place]. She would like some narco, she saw Dr. Burr who found the pinched nerve and is on robaxin. Patient would like medication to go to [facility] in [place]. No problem-specific Assessment & Plan notes found [...] B/L bunion surgery - Dr. Solis - [facility] PAST SURGICAL HISTORY OF 02/02/2014 right [...] Kenney Atkins MD documented in this encounter [facility] 12-04-2021 Miscellaneous Notes Spoke with patient and advised per Dr.Feldman andres to see local specialist or [facility] motor tune up specialist. Currently she is doing better and will not be scheduling either. Spoke with patient. She went to [facility] ED for c/o pain into the left shoulder and arm. Pain in the neck shooting straight up her head and down her right leg. Left arm and right leg became heavy feeling She was told by the ED that the issues is cervical disc related and to see a spine physician. She was give Galt. Cervical spine CT only showed : Mild cervical spondylosis with no acute osseous abnormality. I advised we will need the disc with actual images. She was referred to a motor tune up specialist there - Dr.Jeffery Hines She requests your recommendations. Aware will be out until Friday Kendal Taylor is calling Terrance cMcain MD today with concern regarding Patient Question.Patient [...] calling: self Call patient at: at home [phone] (home) [phone] (cell) Was an appointment scheduled: No Closing statement: Results or non-symptom based questions: Thank you for calling [facility], your call will be returned within the next business day. Shandra Morfin Pss documented in this encounter [facility] 11-30-2021 Miscellaneous Notes ABRAM:11/01/2021 NOV: Visit date not found Urine Panel: No results found for: UQCANN, UQBNZL, NHJ9CAJ, UQAMPH, UQMAMP, UQBUPRE, UQNORBUP, UQMTHD, UQEDDP, UQTRAM, [...] Shandra Morfin Pss documented in this encounter [facility] 11-21-2021 Miscellaneous Notes PDMP website checked and [...] Kiah Kidd LPN documented in this encounter [facility] 11-13-2021 History of Present illness Narrative Reason [...] B/L bunion surgery - Dr. Solis - [facility] PAST SURGICAL HISTORY OF 02/02/2014 right [...] Atkins MD error documented in this encounter [facility] 11-12-2021 Miscellaneous Notes Called patient. Verified name [...] Flower Baez LPN documented in this encounter [facility] 11-09-2021 History of Present illness Narrative Images from the original note were not included. [facility] [place] PATIENT INFO: Kendal L Brandon CHIEF COMPLAINT: [...] Appointment with Jennifer. documented in this encounter [facility] 11-01-2021 Instructions Terrance Mccain MD - 11/01/2021 11:43 AM EDT Continue Ajovy monthly Continue Maxalt and Robaxin as needed Follow up in 6 months documented in this encounter [facility] 11-01-2021 History of Present illness Narrative [facility] [place] Follow up visit History of Present Illness: [...] this appointment visit was 30 minutes of lssb-kz-idpv time with the patient. At least 50% of this time was spent in counseling, explanation of diagnosis, planning of further management, and coordination of care. Portions of this note have been composed using voice recognition and may contain hot dipper errors Terrance Mccain M.D. [facility] Associate Staff Department of Neurology Referring provider: Terrance Mccain [address] [place] [address] Primary care provider: [place] [address] documented in this encounter [facility] 10-17-2021 Miscellaneous Notes Pt called back and states she is going to go to Urgent Care for treatment. Janine Bo Patient calling and states she is having symptoms of a UTI and urinary incontinence. Patient is asking is she can have something for the UTI? Requesting RX be called into [facility] in [place]. documented in this encounter [facility] 09-13-2021 Miscellaneous Notes Pt is not seen [...] to the pharmacy. Please call patient at: [phone] IF this is not going to be filled please call patient Clotilde Hong documented in this encounter [facility] 09-05-2021 Miscellaneous Notes Sent Consumrhart message to Kendal informing her we need to reschedule her appointment on 11/29/[address] Mccain because he will not be seeing patients this day. 1st attempt to reschedule. Nika Osorio documented in this encounter [facility] 05-09-2021 Miscellaneous Notes I would prefer a virtual visit Patient calls in to request an appointment with provider for continued sinus congestion and cough. Patient reports she believes it is now a sinus infection. Appointment scheduled for 05/11/2021. Patient also requesting paper copy of work excuse. 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 Patient is aware. Lilliana [...] call and advise. documented in this encounter [facility] 12-23-2019 Note HNO ID: [id number] Author: Clinton Aguirre Service: ? Author Type: Physician Type: Progress Notes Filed: 12/27/2019 7:37 AM Note Text: [facility] [place] Interval Evaluation Form CHIEF COMPLAINT: Neck pain [...] B/L bunion surgery - Dr. Solis - [facility] - PAST SURGICAL HISTORY OF 02/02/2014 [...] Refill - erenumab-aooe (more content not included)... [facility] 12-01-2019 Note HNO ID: [id number] Author: Clinton Aguirre Service: ? Author Type: [...] Cystocele repair - COLONOSCOP W/ OR W/O [facility] SPEC 10/01/2002 Colonoscopy - COLONOSCOP W/ OR W/O [facility] SPEC 01/09/2011 Colonoscopy - COLONOSCOPY [...] B/L bunion surgery - Dr. Solis - [facility] - PAST SURGICAL HISTORY OF 02/02/2014 [...] - ergocalciferol 50,000 (more content not included)... [facility] 11-30-2019 Note Procedure (AGSPINE3) BRANDONKENDAL L ([id number]) 1940 F Date Time Provider Department 11/30/19 10:00 AM HERBERTH, JAJADEN AGSPINE3 During your visit today, we recorded the following information about you: Temperature Pulse Blood pressure Weight 97.7 degrees 70/minute 160/68 70.8 kg Height 1.499 m Graciela Tyson LPN 11/30/2019 9:36 AM Signed Vocational Rehabilitation Counselor: Are you on a blood thinner: NO [...] B/L bunion surgery - Dr. Solis - [facility] - PAST SURGICAL HISTORY OF 02/02/2014 [...] (For tension headaches). (more content not included)... [facility] 11-30-2019 Note HNO ID: [id number] Author: Graciela Tyson LPN Service: ? Author [...] B/L bunion surgery - Dr. Solis - [facility] - PAST SURGICAL HISTORY OF 02/02/2014 [...] lather 2nd t (more content not included)... [facility] 11-18-2019 Note HNO ID: [id number] Author: Clinton Aguirre Service: ? Author Type: Physician Type: Progress Notes Filed: 11/22/2019 2:06 AM Note Text: [facility] [place] Initial Evaluation Form CHIEF COMPLAINT: Neck pain Referred by: KENNEY ATKINS MD [address] [facility] [address] [facility] November 18, 2019: Kendal Taylor is [...] B/L bunion surgery - Dr. Solis - [facility] - PAST SURGICAL HISTORY OF 02/02/2014 [...] needed for Nazia (more content not included)... [facility] documented as of this encounter (statuses as of 09/05/2021) [facility] History of Past illness Narrative* Problem Noted Date Resolved Date Primary osteoarthritis of left knee 03/30/2016 08/01/2017 Neck pain 07/25/2014 07/18/2020 Diarrhea 01/09/2011 04/14/2013 Abdominal pain, unspecified site 10/11/2005 04/14/2013 RECURRENT UTI'S 08/12/2005 01/31/2016 documented as of this encounter (statuses as of 09/13/2021) [facility] History of Past illness Narrative* Problem Noted Date Resolved Date Primary osteoarthritis of left knee 03/30/2016 08/01/2017 Neck pain 07/25/2014 07/18/2020 Diarrhea 01/09/2011 04/14/2013 Abdominal pain, unspecified site 10/11/2005 04/14/2013 RECURRENT UTI'S 08/12/2005 01/31/2016 documented as of this encounter (statuses as of 10/17/2021) [facility] History of Past illness Narrative* Problem Noted Date Resolved Date Primary osteoarthritis of left knee 03/30/2016 08/01/2017 Neck pain 07/25/2014 07/18/2020 Diarrhea 01/09/2011 04/14/2013 Abdominal pain, unspecified site 10/11/2005 04/14/2013 RECURRENT UTI'S 08/12/2005 01/31/2016 documented as of this encounter (statuses as of 11/01/2021) [facility] of Past illness Narrative* Problem Noted Date Resolved Date Primary osteoarthritis of left knee 03/30/2016 08/01/2017 Neck pain 07/25/2014 07/18/2020 Diarrhea 01/09/2011 04/14/2013 Abdominal pain, unspecified site 10/11/2005 04/14/2013 RECURRENT UTI'S 08/12/2005 01/31/2016 documented as of this encounter (statuses as of 11/09/2021) [facility] of Past illness Narrative* Problem Noted Date Resolved Date Primary osteoarthritis of left knee 03/30/2016 08/01/2017 Neck pain 07/25/2014 07/18/2020 Diarrhea 01/09/2011 04/14/2013 Abdominal pain, unspecified site 10/11/2005 04/14/2013 RECURRENT UTI'S 08/12/2005 01/31/2016 documented as of this encounter (statuses as of 11/09/2021) [facility] of Past illness Narrative* Problem Noted Date Resolved Date Primary osteoarthritis of left knee 03/30/2016 08/01/2017 Neck pain 07/25/2014 07/18/2020 Diarrhea 01/09/2011 04/14/2013 Abdominal pain, unspecified site 10/11/2005 04/14/2013 RECURRENT UTI'S 08/12/2005 01/31/2016 documented as of this encounter (statuses as of 11/12/2021) [facility] of [facility] illness Narrative* Problem Noted Date Resolved Date Primary osteoarthritis of left knee 03/30/2016 08/01/2017 Neck pain 07/25/2014 07/18/2020 Diarrhea 01/09/2011 04/14/2013 Abdominal pain, unspecified site 10/11/2005 04/14/2013 RECURRENT UTI'S 08/12/2005 01/31/2016 documented as of this encounter (statuses as of 11/13/2021) [facility] of [facility] Narrative* Problem Noted Date Resolved Date Primary osteoarthritis of left knee 03/30/2016 08/01/2017 Neck pain 07/25/2014 07/18/2020 Diarrhea 01/09/2011 04/14/2013 Abdominal pain, unspecified site 10/11/2005 04/14/2013 RECURRENT UTI'S 08/12/2005 01/31/2016 documented as of this encounter (statuses as of 11/21/2021) [facility] of [facility] illness Narrative* Problem Noted Date Resolved Date Primary osteoarthritis of left knee 03/30/2016 08/01/2017 Neck pain 07/25/2014 07/18/2020 Diarrhea 01/09/2011 04/14/2013 Abdominal pain, unspecified site 10/11/2005 04/14/2013 RECURRENT UTI'S 08/12/2005 01/31/2016 documented as of this encounter (statuses as of 11/30/2021) [facility] of [facility] illness Narrative* Problem Noted Date Resolved Date Primary osteoarthritis of left knee 03/30/2016 08/01/2017 Neck pain 07/25/2014 07/18/2020 Diarrhea 01/09/2011 04/14/2013 Abdominal pain, unspecified site 10/11/2005 04/14/2013 RECURRENT UTI'S 08/12/2005 01/31/2016 documented as of this encounter (statuses as of 12/04/2021) [facility] History of Past illness Narrative* Problem Noted Date Resolved Date Primary osteoarthritis of left knee 03/30/2016 08/01/2017 Neck pain 07/25/2014 07/18/2020 Diarrhea 01/09/2011 04/14/2013 Abdominal pain, unspecified site 10/11/2005 04/14/2013 RECURRENT UTI'S 08/12/2005 01/31/2016 documented as of this encounter (statuses as of 12/14/2021) [facility] History of Past illness Narrative* Problem Noted Date Resolved Date Primary osteoarthritis of left knee 03/30/2016 08/01/2017 Neck pain 07/25/2014 07/18/2020 Diarrhea 01/09/2011 04/14/2013 Abdominal pain, unspecified site 10/11/2005 04/14/2013 RECURRENT UTI'S 08/12/2005 01/31/2016 documented as of this encounter (statuses as of 12/18/2021) [facility] History of Past illness Narrative* Problem Noted Date Resolved Date Primary osteoarthritis of left knee 03/30/2016 08/01/2017 Neck pain 07/25/2014 07/18/2020 Diarrhea 01/09/2011 04/14/2013 Abdominal pain, unspecified site 10/11/2005 04/14/2013 RECURRENT UTI'S 08/12/2005 01/31/2016 documented as of this encounter (statuses as of 01/10/2022) [facility] History of Past illness Narrative* Problem Noted Date Resolved Date Primary osteoarthritis of left knee 03/30/2016 08/01/2017 Neck pain 07/25/2014 07/18/2020 Diarrhea 01/09/2011 04/14/2013 Abdominal pain, unspecified site 10/11/2005 04/14/2013 RECURRENT UTI'S 08/12/2005 01/31/2016 documented as of this encounter (statuses as of 01/17/2022) [facility] History of Past illness Narrative* Problem Noted Date Resolved Date Primary osteoarthritis of left knee 03/30/2016 08/01/2017 Neck pain 07/25/2014 07/18/2020 Diarrhea 01/09/2011 04/14/2013 Abdominal pain, unspecified site 10/11/2005 04/14/2013 RECURRENT UTI'S 08/12/2005 01/31/2016 documented as of this encounter (statuses as of 01/25/2022) [facility] History of Past illness Narrative* Problem Noted Date Resolved Date Primary osteoarthritis of left knee 03/30/2016 08/01/2017 Neck pain 07/25/2014 07/18/2020 Diarrhea 01/09/2011 04/14/2013 Abdominal pain, unspecified site 10/11/2005 04/14/2013 RECURRENT UTI'S 08/12/2005 01/31/2016 documented as of this encounter (statuses as of 02/08/2022) [facility] History of Past illness Narrative* Problem Noted Date Resolved Date Primary osteoarthritis of left knee 03/30/2016 08/01/2017 Neck pain 07/25/2014 07/18/2020 Diarrhea 01/09/2011 04/14/2013 Abdominal pain, unspecified site 10/11/2005 04/14/2013 RECURRENT UTI'S 08/12/2005 01/31/2016 documented as of this encounter (statuses as of 02/11/2022) [facility] History of Past illness Narrative* Problem Noted Date Resolved Date Primary osteoarthritis of left knee 03/30/2016 08/01/2017 Neck pain 07/25/2014 07/18/2020 Diarrhea 01/09/2011 04/14/2013 Abdominal pain, unspecified site 10/11/2005 04/14/2013 RECURRENT UTI'S 08/12/2005 01/31/2016 documented as of this encounter (statuses as of 02/11/2022) [facility] History of Past illness Narrative* Problem Noted Date Resolved Date Primary osteoarthritis of left knee 03/30/2016 08/01/2017 Neck pain 07/25/2014 07/18/2020 Diarrhea 01/09/2011 04/14/2013 Abdominal pain, unspecified site 10/11/2005 04/14/2013 RECURRENT UTI'S 08/12/2005 01/31/2016 documented as of this encounter (statuses as of 02/12/2022) [facility] History of Past illness Narrative* Problem Noted Date Resolved Date Primary osteoarthritis of left knee 03/30/2016 08/01/2017 Neck pain 07/25/2014 07/18/2020 Diarrhea 01/09/2011 04/14/2013 Abdominal pain, unspecified site 10/11/2005 04/14/2013 RECURRENT UTI'S 08/12/2005 01/31/2016 documented as of this encounter (statuses as of 04/05/2022) [facility] History of Past illness Narrative* Problem Noted Date Resolved Date Primary osteoarthritis of left knee 03/30/2016 08/01/2017 Neck pain 07/25/2014 07/18/2020 Diarrhea 01/09/2011 04/14/2013 Abdominal pain, unspecified site 10/11/2005 04/14/2013 RECURRENT UTI'S 08/12/2005 01/31/2016 documented as of this encounter (statuses as of 04/21/2022) [facility] History of Past illness Narrative* Problem Noted Date Resolved Date Primary osteoarthritis of left knee 03/30/2016 08/01/2017 Neck pain 07/25/2014 07/18/2020 Diarrhea 01/09/2011 04/14/2013 Abdominal pain, unspecified site 10/11/2005 04/14/2013 RECURRENT UTI'S 08/12/2005 01/31/2016 documented as of this encounter (statuses as of 04/28/2022) [facility] History of Past illness Narrative* Problem Noted Date Resolved Date Primary osteoarthritis of left knee 03/30/2016 08/01/2017 Neck pain 07/25/2014 07/18/2020 Diarrhea 01/09/2011 04/14/2013 Abdominal pain, unspecified site 10/11/2005 04/14/2013 RECURRENT UTI'S 08/12/2005 01/31/2016 documented as of this encounter (statuses as of 04/30/2022) [facility] History of Past illness Narrative* Problem Noted Date Resolved Date Primary osteoarthritis of left knee 03/30/2016 08/01/2017 Neck pain 07/25/2014 07/18/2020 Diarrhea 01/09/2011 04/14/2013 Abdominal pain, unspecified site 10/11/2005 04/14/2013 RECURRENT UTI'S 08/12/2005 01/31/2016 documented as of this encounter (statuses as of 05/02/2022) [facility] History of Past illness Narrative* Problem Noted Date Resolved Date Primary osteoarthritis of left knee 03/30/2016 08/01/2017 Neck pain 07/25/2014 07/18/2020 Diarrhea 01/09/2011 04/14/2013 Abdominal pain, unspecified site 10/11/2005 04/14/2013 RECURRENT UTI'S 08/12/2005 01/31/2016 documented as of this encounter (statuses as of 05/04/2022) [facility] History of Past illness Narrative* Problem Noted Date Resolved Date Primary osteoarthritis of left knee 03/30/2016 08/01/2017 Neck pain 07/25/2014 07/18/2020 Diarrhea 01/09/2011 04/14/2013 Abdominal pain, unspecified site 10/11/2005 04/14/2013 RECURRENT UTI'S 08/12/2005 01/31/2016 documented as of this encounter (statuses as of 05/14/2022) [facility] History of Past illness Narrative* Problem Noted Date Resolved Date Primary osteoarthritis of left knee 03/30/2016 08/01/2017 Neck pain 07/25/2014 07/18/2020 Diarrhea 01/09/2011 04/14/2013 Abdominal pain, unspecified site 10/11/2005 04/14/2013 RECURRENT UTI'S 08/12/2005 01/31/2016 documented as of this encounter (statuses as of 05/15/2022) [facility] History of Past illness Narrative* Problem Noted Date Resolved Date Primary osteoarthritis of left knee 03/30/2016 08/01/2017 Neck pain 07/25/2014 07/18/2020 Diarrhea 01/09/2011 04/14/2013 Abdominal pain, unspecified site 10/11/2005 04/14/2013 RECURRENT UTI'S 08/12/2005 01/31/2016 documented as of this encounter (statuses as of 05/17/2022) [facility] History of Past illness Narrative* Problem Noted Date Resolved Date Primary osteoarthritis of left knee 03/30/2016 08/01/2017 Neck pain 07/25/2014 07/18/2020 Diarrhea 01/09/2011 04/14/2013 Abdominal pain, unspecified site 10/11/2005 04/14/2013 RECURRENT UTI'S 08/12/2005 01/31/2016 documented as of this encounter (statuses as of 06/07/2022) [facility] History of Past illness Narrative* Problem Noted Date Resolved Date Primary osteoarthritis of left knee 03/30/2016 08/01/2017 Neck pain 07/25/2014 07/18/2020 Diarrhea 01/09/2011 04/14/2013 Abdominal pain, unspecified site 10/11/2005 04/14/2013 RECURRENT UTI'S 08/12/2005 01/31/2016 documented as of this encounter (statuses as of 07/02/2022) [facility] History of Past illness Narrative* Problem Noted Date Resolved Date Primary osteoarthritis of left knee 03/30/2016 08/01/2017 Neck pain 07/25/2014 07/18/2020 Diarrhea 01/09/2011 04/14/2013 Abdominal pain, unspecified site 10/11/2005 04/14/2013 RECURRENT UTI'S 08/12/2005 01/31/2016 documented as of this encounter (statuses as of 07/09/2022) [facility] History of Past illness Narrative* Problem Noted Date Resolved Date Primary osteoarthritis of left knee 03/30/2016 08/01/2017 Neck pain 07/25/2014 07/18/2020 Diarrhea 01/09/2011 04/14/2013 Abdominal pain, unspecified site 10/11/2005 04/14/2013 RECURRENT UTI'S 08/12/2005 01/31/2016 documented as of this encounter (statuses as of 07/23/2022) [facility] History of Past illness Narrative* Problem Noted Date Resolved Date Primary osteoarthritis of left knee 03/30/2016 08/01/2017 Neck pain 07/25/2014 07/18/2020 Diarrhea 01/09/2011 04/14/2013 Abdominal pain, unspecified site 10/11/2005 04/14/2013 RECURRENT UTI'S 08/12/2005 01/31/2016 documented as of this encounter (statuses as of 11/01/2022) [facility] History of Past illness Narrative* Problem Noted Date Diagnosed Date Resolved Date Primary osteoarthritis of left knee 03/30/2016 08/01/2017 Neck pain 07/25/2014 07/18/2020 Diarrhea 01/09/2011 04/14/2013 Abdominal pain, unspecified site 10/11/2005 04/14/2013 RECURRENT UTI'S 08/12/2005 01/31/2016 documented as of this encounter (statuses as of 11/12/2022) [facility] History of Past illness Narrative* Problem Noted Date Diagnosed Date Resolved Date Primary osteoarthritis of left knee 03/30/2016 08/01/2017 Neck pain 07/25/2014 07/18/2020 Diarrhea 01/09/2011 04/14/2013 Abdominal pain, unspecified site 10/11/2005 04/14/2013 RECURRENT UTI'S 08/12/2005 01/31/2016 documented as of this encounter (statuses as of 12/07/2022) [facility] History of Past illness Narrative* Problem Noted Date Diagnosed Date Resolved Date Primary osteoarthritis of left knee 03/30/2016 08/01/2017 Neck pain 07/25/2014 07/18/2020 Diarrhea 01/09/2011 04/14/2013 Abdominal pain, unspecified site 10/11/2005 04/14/2013 RECURRENT UTI'S 08/12/2005 01/31/2016 documented as of this encounter (statuses as of 12/27/2022) [facility] History of Past illness Narrative* Problem Noted Date Diagnosed Date Resolved Date Primary osteoarthritis of left knee 03/30/2016 08/01/2017 Neck pain 07/25/2014 07/18/2020 Diarrhea 01/09/2011 04/14/2013 Abdominal pain, unspecified site 10/11/2005 04/14/2013 RECURRENT UTI'S 08/12/2005 01/31/2016 documented as of this encounter (statuses as of 01/01/2023) [facility] History of Past illness Narrative* Problem Noted Date Diagnosed Date Resolved Date Primary osteoarthritis of left knee 03/30/2016 08/01/2017 Neck pain 07/25/2014 07/18/2020 Diarrhea 01/09/2011 04/14/2013 Abdominal pain, unspecified site 10/11/2005 04/14/2013 RECURRENT UTI'S 08/12/2005 01/31/2016 documented as of this encounter (statuses as of 01/08/2023) [facility] History of Past illness Narrative* Problem Noted Date Diagnosed Date Resolved Date Primary osteoarthritis of left knee 03/30/2016 08/01/2017 Neck pain 07/25/2014 07/18/2020 Diarrhea 01/09/2011 04/14/2013 Abdominal pain, unspecified site 10/11/2005 04/14/2013 RECURRENT UTI'S 08/12/2005 01/31/2016 documented as of this encounter (statuses as of 01/10/2023) [facility] History of Past illness Narrative* Problem Noted Date Diagnosed Date Resolved Date Primary osteoarthritis of left knee 03/30/2016 08/01/2017 Neck pain 07/25/2014 07/18/2020 Diarrhea 01/09/2011 04/14/2013 Abdominal pain, unspecified site 10/11/2005 04/14/2013 RECURRENT UTI'S 08/12/2005 01/31/2016 documented as of this encounter (statuses as of 01/11/2023) [facility] History of Past illness Narrative* Problem Noted Date Diagnosed Date Resolved Date Primary osteoarthritis of left knee 03/30/2016 08/01/2017 Neck pain 07/25/2014 07/18/2020 Diarrhea 01/09/2011 04/14/2013 Abdominal pain, unspecified site 10/11/2005 04/14/2013 RECURRENT UTI'S 08/12/2005 01/31/2016 documented as of this encounter (statuses as of 01/14/2023) [facility] History of Past illness Narrative* Problem Noted Date Diagnosed Date Resolved Date Primary osteoarthritis of left knee 03/30/2016 08/01/2017 Neck pain 07/25/2014 07/18/2020 Diarrhea 01/09/2011 04/14/2013 Abdominal pain, unspecified site 10/11/2005 04/14/2013 RECURRENT UTI'S 08/12/2005 01/31/2016 documented as of this encounter (statuses as of 03/15/2023) [facility] History of Past illness Narrative* Problem Noted Date Diagnosed Date Resolved Date Primary osteoarthritis of left knee 03/30/2016 08/01/2017 Neck pain 07/25/2014 07/18/2020 Diarrhea 01/09/2011 04/14/2013 Abdominal pain, unspecified site 10/11/2005 04/14/2013 RECURRENT UTI'S 08/12/2005 01/31/2016 documented as of this encounter (statuses as of 06/26/2023) [facility] noteThere may be information available, but it has not been provided by the sender.[facility] Work Phone: Evaluation note* Diagnosis Migraine without aura and without status migrainosus, not intractable Migraine without aura, without mention of intractable migraine without mention of status migrainosus Neck pain Cervicalgia [facility] Diagnosis Migraine without aura and without status migrainosus, not intractable- Primary Migraine without aura, without mention of intractable migraine without mention of status migrainosus [facility] Diagnosis Atrophic vaginitis- Primary Postmenopausal atrophic vaginitis Recurrent UTI Urinary tract infection, site not specified Dysuria [facility]* Diagnosis Dysuria [facility] this [facility]* Diagnosis H. pylori infection- Primary Helicobacter pylori (H. pylori) Chronic diarrhea Diarrhea Essential hypertension Unspecified essential hypertension Hypokalemia Hypopotassemia Recurrent UTI Urinary tract infection, site not specified [facility] this [facility]* Diagnosis Chronic diarrhea Diarrhea [facility] Diagnosis Migraine without aura and without status migrainosus, not intractable Migraine without aura, without mention of intractable migraine without mention of status migrainosus Neck pain Cervicalgia [facility] this [facility]* Diagnosis Neck pain- Primary Cervicalgia Primary hypertension Unspecified essential hypertension [facility] Diagnosis Neck pain Cervicalgia [facility] Diagnosis Cervical spondylosis without myelopathy- Primary Arthropathy of cervical facet joint Cervical spondylosis without myelopathy [facility] Diagnosis Primary osteoarthritis of both knees- Primary Primary localized osteoarthrosis, lower leg Cervical spondylosis without myelopathy [facility] Diagnosis Cervical spondylosis without myelopathy- Primary [facility] this [facility]* Diagnosis Acute non-recurrent maxillary sinusitis- Primary Need for influenza vaccination Need for prophylactic vaccination and inoculation against influenza Mixed hyperlipidemia Encounter for screening for diabetes mellitus Screening for diabetes mellitus Cervical spondylosis without myelopathy Cervical spondylosis without myelopathy [facility] this [facility]* Diagnosis Migraine without aura and without status migrainosus, not intractable Migraine without aura, without mention of intractable migraine without mention of status migrainosus Neck pain Cervicalgia [facility] Diagnosis URI, acute- Primary Acute upper respiratory infections of unspecified site Bacterial sinusitis Unspecified sinusitis (chronic) [facility] this [facility]* Diagnosis Viral illness- Primary Unspecified viral infection, in conditions classified elsewhere and of unspecified site Wheezing [facility] this [facility]* Diagnosis Functional bowel disorder Unspecified functional disorder of intestine Mixed hyperlipidemia [facility] this [facility]* Diagnosis Vulvar lump- Primary Other specified symptom associated with female genital organs [facility] this [facility]* Diagnosis Uncontrolled hypertension- Primary Unspecified essential hypertension Other fatigue Vitamin D deficiency Unspecified vitamin D deficiency Sinusitis, unspecified chronicity, unspecified location Recurrent UTI Urinary tract infection, site not specified Mixed hyperlipidemia Vitamin B12 deficiency Other B-complex deficiencies [facility] Diagnosis Migraine without aura and without status migrainosus, not intractable Migraine without aura, without mention of intractable migraine without mention of status migrainosus Neck pain Cervicalgia [facility] Diagnosis Recurrent infections- Primary Unspecified infectious and parasitic diseases Primary hypertension Unspecified essential hypertension Mixed hyperlipidemia VARUN (obstructive sleep apnea) Obstructive sleep apnea (adult) (pediatric) [facility] this [facility]* Diagnosis Migraine without aura and without status migrainosus, not intractable- Primary Migraine without aura, without mention of intractable migraine without mention of status migrainosus Neck pain Cervicalgia [facility]* Diagnosis Procedure not carried out- Primary Procedure not carried out for other reasons [facility] Diagnosis Urinary frequency- Primary [facility] this [facility]* Diagnosis Acute non-recurrent pansinusitis- Primary [facility] Instruction Description Start Date Patient advised to follow-up with Primary Care Physician for BMI management. [facility] Work Phone: Instructions* Instruction Description Start Date Patient advised to follow-up with Primary Care Physician for BMI management. 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 Advance Directive(s) Chief Complaint Chief [...] TO SPINE INTERVENTION Teresa Rodriguez PA-C [address] [place] [address] Referral ID Status Reason Start Date Expiration Date Visits Requested Visits Authorized [id number] Authorized PCP Requested Referral 01/10/2022 04/10/2022 3 3 Specialty Diagnoses / Procedures Referred By Contac t Referred To Contact Immunology Diagnoses Recurrent infections Procedures CONSULT TO IMMUNOLOGY OFFICE/[facility]IENT [facility] 60-74 MINUTES Kenney Atkins MD [address] [place] [id number] Referral ID Status Reason Start Date Expiration Date Visits Requested Visits Authorized [id number] Authorized PCP Requested Referral 07/23/2022 07/23/2023 1 1 Health Concerns Infection Onset Date Last Indicated Resolved Time COVID-19 Rule-Out 05/07/2021 05/07/2021 05/08/2021 5:41 AM EST Infection Onset Date Last Indicated Resolved Time COVID-19 Rule-Out 04/29/2022 04/29/2022 04/30/2022 12:50 AM EST Additional Source Comments INFORMATION SOURCE (unrecogn ized section and content) DATE CREATED AUTHOR AUTHOR'S ORGANIZ ATION 05/20/2020 [facility] DATE CREATED AUTHOR AUTHOR'S ORGANIZ ATION 10/26/2020 [facility] DATE CREATED AUTHOR AUTHOR'S ORGANIZ ATION 03/14/2022 [facility] DATE CREATED AUTHOR AUTHOR'S ORGANIZ ATION 07/04/2023 [facility] Reason for Visit (unrecogniz ed section [...] or prosecute any alcohol or drug abuse patient.[facility] the event this information is protected by the Federal Confidentiality of Alcohol and Drug Abuse Patient Records regulations: The Federal rules restrict any use of the information to criminally investigate or prosecute any alcohol or drug abuse patient.[facility] the event this information is protected by the Federal Confidentiality of Alcohol and Drug Abuse Patient Records regulations: The Federal rules restrict any use of the information to criminally investigate or prosecute any alcohol or drug abuse patient.[facility] the event this information is protected by the Federal Confidentiality of Alcohol and Drug Abuse Patient Records regulations: The Federal rules restrict any use of the information to criminally investigate or prosecute any alcohol or drug abuse patient.[facility] the event this information is protected by the Federal Confidentiality of Alcohol and Drug Abuse Patient Records regulations: The Federal rules restrict any use of the information to criminally investigate or prosecute any alcohol or drug abuse patient.[facility] the event this information is protected by the Federal Confidentiality of Alcohol and Drug Abuse Patient Records regulations: The Federal rules restrict any use of the information to criminally investigate or prosecute any alcohol or drug abuse patient.[facility] the event this information is protected by the Federal Confidentiality of Alcohol and Drug Abuse Patient Records regulations: The Federal rules restrict any use of the information to criminally investigate or prosecute any alcohol or drug abuse patient.[facility] the event this information is protected by the Federal Confidentiality of Alcohol and Drug Abuse Patient Records regulations: The Federal rules restrict any use of the information to criminally investigate or prosecute any alcohol or drug abuse patient.[facility] the event this information is protected by the Federal Confidentiality of Alcohol and Drug Abuse Patient Records regulations: The Federal rules restrict any use of the information to criminally investigate or prosecute any alcohol or drug abuse patient.[facility] the event this information is protected by the Federal Confidentiality of Alcohol and Drug Abuse Patient Records regulations: The Federal rules restrict any use of the information to criminally investigate or prosecute any alcohol or drug abuse patient.[facility] the event this information is protected by the Federal Confidentiality of Alcohol and Drug Abuse Patient Records regulations: The Federal rules restrict any use of the information to criminally investigate or prosecute any alcohol or drug abuse patient.[facility] the event this information is protected by the Federal Confidentiality of Alcohol and Drug Abuse Patient Records regulations: The Federal rules restrict any use of the information to criminally investigate or prosecute any alcohol or drug abuse patient.[facility] the event this information is protected by the Federal Confidentiality of Alcohol and Drug Abuse Patient Records regulations: The Federal rules restrict any use of the information to criminally investigate or prosecute any alcohol or drug abuse patient.[facility] the event this information is protected by the Federal Confidentiality of Alcohol and Drug Abuse Patient Records regulations: The Federal rules restrict any use of the information to criminally investigate or prosecute any alcohol or drug abuse patient.[facility] HospitalIn the event this information is protected by the Federal Confidentiality of Alcohol and Drug Abuse Patient Records regulations: The Federal rules restrict any use of the information to criminally investigate or prosecute any alcohol or drug abuse patient.[facility] HospitalIn the event this information is protected by the Federal Confidentiality of Alcohol and Drug Abuse Patient Records regulations: The Federal rules restrict any use of the information to criminally investigate or prosecute any alcohol or drug abuse patient.[facility] HospitalIn the event this information is protected by the Federal Confidentiality of Alcohol and Drug Abuse Patient Records regulations: The Federal rules restrict any use of the information to criminally investigate or prosecute any alcohol or drug abuse patient.[facility] HospitalIn the event this information is protected by the Federal Confidentiality of Alcohol and Drug Abuse Patient Records regulations: The Federal rules restrict any use of the information to criminally investigate or prosecute any alcohol or drug abuse patient.[facility] HospitalIn the event this information is protected by the Federal Confidentiality of Alcohol and Drug Abuse Patient Records regulations: The Federal rules restrict any use of the information to criminally investigate or prosecute any alcohol or drug abuse patient.[facility] HospitalIn the event this information is protected by the Federal Confidentiality of Alcohol and Drug Abuse Patient Records regulations: The Federal rules restrict any use of the information to criminally investigate or prosecute any alcohol or drug abuse patient.[facility] HospitalIn the event this information is protected by the Federal Confidentiality of Alcohol and Drug Abuse Patient Records regulations: The Federal rules restrict any use of the information to criminally investigate or prosecute any alcohol or drug abuse patient.[facility] HospitalIn the event this information is protected by the Federal Confidentiality of Alcohol and Drug Abuse Patient Records regulations: The Federal rules restrict any use of the information to criminally investigate or prosecute any alcohol or drug abuse patient.[facility] HospitalIn the event this information is protected by the Federal Confidentiality of Alcohol and Drug Abuse Patient Records regulations: The Federal rules restrict any use of the information to criminally investigate or prosecute any alcohol or drug abuse patient.[facility] HospitalIn the event this information is protected by the Federal Confidentiality of Alcohol and Drug Abuse Patient Records regulations: The Federal rules restrict any use of the information to criminally investigate or prosecute any alcohol or drug abuse patient.[facility] HospitalIn the event this information is protected by the Federal Confidentiality of Alcohol and Drug Abuse Patient Records regulations: The Federal rules restrict any use of the information to criminally investigate or prosecute any alcohol or drug abuse patient.[facility] HospitalIn the event this information is protected by the Federal Confidentiality of Alcohol and Drug Abuse Patient Records regulations: The Federal rules restrict any use of the information to criminally investigate or prosecute any alcohol or drug abuse patient.[facility] HospitalIn the event this information is protected by the Federal Confidentiality of Alcohol and Drug Abuse Patient Records regulations: The Federal rules restrict any use of the information to criminally investigate or prosecute any alcohol or drug abuse patient.[facility] HospitalIn the event this information is protected by the Federal Confidentiality of Alcohol and Drug Abuse Patient Records regulations: The Federal rules restrict any use of the information to criminally investigate or prosecute any alcohol or drug abuse patient.[facility] HospitalIn the event this information is protected by the Federal Confidentiality of Alcohol and Drug Abuse Patient Records regulations: The Federal rules restrict any use of the information to criminally investigate or prosecute any alcohol or drug abuse patient.[facility] HospitalIn the event this information is protected by the Federal Confidentiality of Alcohol and Drug Abuse Patient Records regulations: The Federal rules restrict any use of the information to criminally investigate or prosecute any alcohol or drug abuse patient.[facility] HospitalIn the event this information is protected by the Federal Confidentiality of Alcohol and Drug Abuse Patient Records regulations: The Federal rules restrict any use of the information to criminally investigate or prosecute any alcohol or drug abuse patient.[facility] HospitalIn the event this information is protected by the Federal Confidentiality of Alcohol and Drug Abuse Patient Records regulations: The Federal rules restrict any use of the information to criminally investigate or prosecute any alcohol or drug abuse patient.[facility] HospitalIn the event this information is protected by the Federal Confidentiality of Alcohol and Drug Abuse Patient Records regulations: The Federal rules restrict any use of the information to criminally investigate or prosecute any alcohol or drug abuse patient.[facility] HospitalIn the event this information is protected by the Federal Confidentiality of Alcohol and Drug Abuse Patient Records regulations: The Federal rules restrict any use of the information to criminally investigate or prosecute any alcohol or drug abuse patient.[facility] HospitalIn the event this information is protected by the Federal Confidentiality of Alcohol and Drug Abuse Patient Records regulations: The Federal rules restrict any use of the information to criminally investigate or prosecute any alcohol or drug abuse patient.[facility] HospitalIn the event this information is protected by the Federal Confidentiality of Alcohol and Drug Abuse Patient Records regulations: The Federal rules restrict any use of the information to criminally investigate or prosecute any alcohol or drug abuse patient.[facility] HospitalIn the event this information is protected by the Federal Confidentiality of Alcohol and Drug Abuse Patient Records regulations: The Federal rules restrict any use of the information to criminally investigate or prosecute any alcohol or drug abuse patient.[facility] HospitalIn the event this information is protected by the Federal Confidentiality of Alcohol and Drug Abuse Patient Records regulations: The Federal rules restrict any use of the information to criminally investigate or prosecute any alcohol or drug abuse patient.[facility] HospitalIn the event this information is protected by the Federal Confidentiality of Alcohol and Drug Abuse Patient Records regulations: The Federal rules restrict any use of the information to criminally investigate or prosecute any alcohol or drug abuse patient.[facility] HospitalIn the event this information is protected by the Federal Confidentiality of Alcohol and Drug Abuse Patient Records regulations: The Federal rules restrict any use of the information to criminally investigate or prosecute any alcohol or drug abuse patient.[facility] HospitalIn the event this information is protected by the Federal Confidentiality of Alcohol and Drug Abuse Patient Records regulations: The Federal rules restrict any use of the information to criminally investigate or prosecute any alcohol or drug abuse patient.[facility] HospitalIn the event this information is protected by the Federal Confidentiality of Alcohol and Drug Abuse Patient Records regulations: The Federal rules restrict any use of the information to criminally investigate or prosecute any alcohol or drug abuse patient.[facility] HospitalIn the event this information is protected by the Federal Confidentiality of Alcohol and Drug Abuse Patient Records regulations: The Federal rules restrict any use of the information to criminally investigate or prosecute any alcohol or drug abuse patient.[facility] HospitalIn the event this information is protected by the Federal Confidentiality of Alcohol and Drug Abuse Patient Records regulations: The Federal rules restrict any use of the information to criminally investigate or prosecute any alcohol or drug abuse patient.[facility] Care Teams (unrecognized sec tion and content) Family Engagement Specialist Relationship Specialty Start Date End Date Kenney Atkins MD [address] [place] [address] PCP - General Internal Medicine 09/03/16 Family Engagement Specialist Relationship Specialty Start Date End Date Kenney Atkins MD [address] [place] [address] PCP - General Internal Medicine 09/03/16 Family Engagement Specialist Relationship Specialty Start Date End Date Kenney Atkins MD [address] [place] [address] PCP - General Internal Medicine 09/03/16 Family Engagement Specialist Relationship Specialty Start Date End Date Kenney Atkins MD [address] [facility] [place] [address] PCP - General Internal Medicine 09/03/16 Family Engagement Specialist Relationship Specialty Start Date End Date Kenney Atkins MD [address] [place] [address] PCP - General Internal Medicine 09/03/16 Family Engagement Specialist Relationship Specialty Start Date End Date Kenney Atkins MD [address] [facility] [place] [address] PCP - General Internal Medicine 09/03/16 Family Engagement Specialist Relationship Specialty Start Date End Date Kenney Atkins MD [address] [facility] [place] [address] PCP - General Internal Medicine 09/03/16 Family Engagement Specialist Relationship Specialty Start Date End Date Kenney Atkins MD [address] [facility] [place] [address] PCP - General Internal Medicine 09/03/16 Family Engagement Specialist Relationship Specialty Start Date End Date Kenney Atkins MD [address] [facility] [place] [address] PCP - General Internal Medicine 09/03/16 Family Engagement Specialist Relationship Specialty Start Date End Date Kenney Atkins MD [address] [place] [address] PCP - General Internal Medicine 09/03/16 Family Engagement Specialist Relationship Specialty Start Date End Date Kenney Atkins MD [address] [place] [address] PCP - General Internal Medicine 09/03/16 Family Engagement Specialist Relationship Specialty Start Date End Date Kenney Atkins MD [address] [place] [address] PCP - General Internal Medicine 09/03/16 Family Engagement Specialist Relationship Specialty Start Date End Date Kenney Atkins MD [address] [facility] [place] [address] PCP - General Internal Medicine 09/03/16 Family Engagement Specialist Relationship Specialty Start Date End Date Kenney Atkins MD [address] [facility] [place] [address] PCP - General Internal Medicine 09/03/16 Family Engagement Specialist Relationship Specialty Start Date End Date Kenney Atkins MD [address] [place] [address] PCP - General Internal Medicine 09/03/16 Family Engagement Specialist Relationship Specialty Start Date End Date Kenney Atkins MD [address] [place] [address] PCP - General Internal Medicine 09/03/16 Family Engagement Specialist Relationship Specialty Start Date End Date Kenney Atkins MD [address] [place] [address] PCP - General Internal Medicine 09/03/16 Family Engagement Specialist Relationship Specialty Start Date End Date Kenney Atkins MD [address] [place] [address] PCP - General Internal Medicine 09/03/16 Family Engagement Specialist Relationship Specialty Start Date End Date Kenney Atkins MD [address] [place] [address] PCP - General Internal Medicine 09/03/16 Family Engagement Specialist Relationship Specialty Start Date End Date Kenney Atkins MD [address] [place] [address] PCP - General Internal Medicine 09/03/16 Family Engagement Specialist Relationship Specialty Start Date End Date Kenney Atkins MD [address] [place] [address] PCP - General Internal Medicine 09/03/16 Family Engagement Specialist Relationship Specialty Start Date End Date Kenney Atkins MD [address] [place] [address] PCP - General Internal Medicine 09/03/16 Family Engagement Specialist Relationship Specialty Start Date End Date Kenney Atkins MD [address] [place] [address] PCP - General Internal Medicine 09/03/16 Family Engagement Specialist Relationship Specialty Start Date End Date Kenney Atkins MD [address] [place] [address] PCP - General Internal Medicine 09/03/16 Family Engagement Specialist Relationship Specialty Start Date End Date Kenney Atkins MD [address] [place] [address] PCP - General Internal Medicine 09/03/16 Family Engagement Specialist Relationship Specialty Start Date End Date Santa Sethi MD [address] [place] [address] PCP - General Internal Medicine 01/14/23 Family Engagement Specialist Relationship Specialty Start Date End Date Kenney Atkins MD [address] [place] [address] PCP - General Internal Medicine 09/03/16 01/13/23 Santa Sethi MD [address] [place] [address] PCP - General Internal Medicine 01/14/23 Family Engagement Specialist Relationship Specialty Start Date End Date Santa Sethi MD [address] [place] [address] PCP - General Internal Medicine 01/14/23 FOR [...] BE BASED ON THE PRIMARY CLINICAL RECORDS. [facility] HospitalPop[facility]. provides no warranty or guarantee of the accuracy or completeness of information in this document.
== END | disposition home or self-care (01) ==
LOC: LABSPEC 11:08
PROVIDERS: PCP Internal Medicine; Visit Provider Physician Assistant Medical
DX: R30.0 Dysuria (principal); N39.0 Urinary tract infection, site not specified
CPT/HCPCS: 87086; 87088

== ENCOUNTER → 2023-07-30 | Outpatient (CLI) | payer MEDICARE, OTHER, SELFPAY ==
--- NOTE | 2023-07-30 17:56 | STRESSREP ---
Stress Test Report Exercise myocardial perfusion stress test. 83-year-old lady with a history of dyspnea and fatigue Stress protocol: Resting EKG demonstrates normal sinus rhythm with a rate of 76 bpm resting blood pressure is 138/94 mmHg. The patient exercised according to the regular Remington protocol for a total duration of 3 minutes attaining a maximum heart rate of 137 bpm which was 99% of maximum predicted heart rate; the maximum workload was 4.6 metabolic equivalents. At rest there were no ST or T wave changes noted to suggest ischemia and at peak exercise upsloping ST changes only were noted which did not meet the criteria for ischemia. No clinical angina was noted the test was terminated due to the target heart rate being achieved/fatigue. The peak blood pressure was 190/80 mmHg. Rate-pressure product was 22,800. Myocardial perfusion protocol. 12 point mCi of technetium 99m sestamibi was injected at rest. The patient exercised according to regular Remington protocol for total duration of 3-minute and at peak exercise 34.1 mCi of technetium 99m sestamibi was injected stress images were obtained stress and rest images were reconstructed in comparing the short axis vertical long and horizontal long axis. Gated images were also obtained. Perfusion SPECT analysis: Review of the stress images demonstrate normal uptake of tracer noted in all areas of the myocardium. The resting images similarly demonstrate normal uptake of tracer noted in all areas of the myocardium. No areas of reversibility are noted to suggest ischemia no previous infarct was noted. Gated SPECT analysis: The gated ejection fraction is 85%. Conclusion: Normal exercise myocardial perfusion stress test at a low workload Preserved ejection fraction. The low workload may affect sensitivity for detection of ischemia.
== END | disposition home or self-care (01) ==
LOC: CVS 06:07
PROVIDERS: PCP Internal Medicine; Referring Provider Internal Medicine; Visit Provider Internal Medicine
DX: R06.09 Other forms of dyspnea (principal)
CPT/HCPCS: 78452; 93017; A9500

== ENCOUNTER → 2023-10-20 | Outpatient (CLI) | payer MEDICARE, OTHER, SELFPAY ==
--- NOTE | 2023-10-20 08:07 | ECHOD_ITS ---
Reason For Study: Dyspnea Procedure This was a 2D Doppler, Color Flow transthoracic echocardiogram. Exam performed in department. Left Ventricle Normal size and thickness. The left ventricular ejection fraction is 65 %. Normal diastology for age. Right Ventricle Normal right ventricle. Atria The left and right atria are normal. Bubble contrast study is negative for PFO/ASD. Aneurysmal atrial septum. Mitral Valve Mild mitral annular calcification. Mild (1+) mitral valve insufficiency. Tricuspid Valve Trivial tricuspid valve insufficiency. Normal pulmonary artery pressure. Aortic Valve Mild diffuse aortic valve calcification. Mild aortic stenosis. Trivial aortic valve insufficiency. Pulmonic Valve The pulmonic valve is not well visualized. Great Vessels Normal sized aortic root. Pericardium/Pleural No pericardial effusion. Medication 22 gauge I.V. with prn adaptor inserted into right arm. Performed a rapid injection of agitated mix of 9 cc saline and 1cc air to assess for atrial septal defect. MMode/2D Measurements & Calculations LVIDd: 5.0 cm IVSd: 0.70 cm LVOT diam: 2.0 cm LVIDs: 3.0 cm LVPWd: 0.71 cm RVDd: 3.2 cm FS: 39.6 % LVOT area: 3.0 cm2 Ao root diam: 3.1 cm LAV(MOD-bp): 50.5 ml LVAd ap4: 19.3 cm2 ACS: 1.2 cm LAV(MOD-bp) Indexed: 30.1 ml/m2 LVLd ap4: 6.7 cm LA dimension: 3.4 cm LAV(MOD-sp2): 52.1 ml EDV(MOD-sp4): 45.6 ml LAV(MOD-sp4): 47.6 ml EDV(sp4-el): 47.4 ml LVAs ap4: 10.7 cm2 LVLs ap4: 5.7 cm ESV(MOD-sp4): 18.3 ml ESV(sp4-el): 17.0 ml EF(MOD-sp4): 59.9 % EF(sp4-el): 64.1 % SV(MOD-sp4): 27.3 ml SV(sp4-el): 30.4 ml LA A4 area: 18.1 cm2 RA A4 area: 14.8 cm2 TAPSE: 1.8 cm Time Measurements MV dec time: 0.17 sec Doppler Measurements & Calculations MV E max jez: 87.6 cm/sec Lat Peak E' Jez: 9.2 cm/sec Med Peak E' Jez: 7.3 cm/sec MV A max jez: 92.5 cm/sec E/E' lat: 9.6 E/E' med: 12.0 MV E/A: 0.95 MV V2 max: 98.8 cm/sec MV P1/2t max jez: 95.7 cm/sec Ao V2 max: 234.1 cm/sec MV max P.9 mmHg MV P1/2t: 60.2 msec Ao max P.0 mmHg MV V2 mean: 61.7 cm/sec MV dec slope: 465.6 cm/sec2 Ao V2 mean: 162.3 cm/sec MV mean P.8 mmHg MVA(P1/2t): 3.7 cm2 Ao mean P.0 mmHg MV V2 VTI: 26.8 cm Ao V2 VTI: 56.1 cm MVA(VTI): 3.1 cm2 AV (velocity ratio): 0.49 HAYDEE(I,D): 1.5 cm2 HAYDEE(V,D): 1.5 cm2 AI max jez: 378.5 cm/sec LV V1 max: 113.2 cm/sec SV(LVOT): 83.5 ml AI max P.4 mmHg LV V1 max P.1 mmHg LV V1 mean P.0 mmHg AI dec slope: 253.6 cm/sec2 LV V1 mean: 82.5 cm/sec AI P1/2t: 437.1 msec LV V1 VTI: 27.7 cm PA V2 max: 97.5 cm/sec TR max jez: 185.0 cm/sec PA max PG (full): 1.9 mmHg TR max P.7 mmHg PA V2 mean: 72.1 cm/sec PA mean PG (full): 1.1 mmHg ECHO/Echo Complete Interpretation Summary The left ventricular ejection fraction is 65 %. Mild mitral annular calcification. Aneurysmal atrial septum. Bubble contrast study is negative for PFO/ASD. Mild (1+) mitral valve insufficiency. Mild aortic stenosis. Ordering Physician: Sonya Sethi Performed By: Ned Colbert RCS
== END | disposition home or self-care (01) ==
LOC: CVS 07:49
PROVIDERS: PCP Internal Medicine; Visit Provider Internal Medicine
DX: R06.09 Other forms of dyspnea (principal)
CPT/HCPCS: 93306; A4216

== ENCOUNTER → 2023-12-04 | Outpatient (CLI) | payer MEDICARE, OTHER, SELFPAY ==
[2023-12-04 12:18] LABS: Mucous, Urine 0 SEEN /hpf (<or=2+); Red Blood Cells-Urine 0 SEEN /hpf (0-5)
[2023-12-04 12:46] LABS: Color, Urine Yellow (Yellow); Glucose, Dipstick Normal (Normal); Ketone-Dipstick Negative (Negative); Leukocyte Esterase-Dipstick 500 /ul (Negative); Nitrite-Dipstick Negative (Negative); Occult Blood-Urine 10 /ul (Negative); Protein-Dipstick 15 mg/dl (Negative); Urine Bilirubin Dipstick Negative (Negative); Urine Clarity Clear (Clear); Urine Urobilinogen Normal (Normal)
[2023-12-04 13:03] LABS: Bacteria 2+ /hpf (None Seen); Squamous Epithelial Cells - UA 5-10 SEEN /hpf (5-10); White Blood Cells >100 SEEN /hpf (0-5)
== END | disposition home or self-care (01) ==
LOC: LABSPEC 12:05
PROVIDERS: PCP Internal Medicine; Referring Provider Physician Assistant Surgical; Visit Provider Physician Assistant Surgical
DX: R30.0 Dysuria (principal)
CPT/HCPCS: 81001; 87077; 87086; 87088; 87186

== ENCOUNTER → 2024-02-04 | Outpatient (CLI) | payer MEDICARE, OTHER, SELFPAY ==
[2024-02-04 13:21] LABS: Anion Gap 10 (5-15); BUN 28 mg/dL (7-18); Calcium,Total 9.8 mg/dL (8.5-10.1); Chloride 100 mmol/L (98-107); Creatinine, Serum 0.97 mg/dL (0.55-1.02); EST Glomerular Filtration Rate 59 mL/min (>60); Est Glom Filt Rate - Afr Amer 71 mL/min (>60); Glucose 104 mg/dL (74-106); Magnesium 1.7 mg/dL (1.6-2.6); Sodium Level 139 mmol/L (136-145)
== END | disposition home or self-care (01) ==
LOC: LAB 11:52
PROVIDERS: PCP Internal Medicine; Referring Provider Internal Medicine; Visit Provider Internal Medicine
DX: I10 Essential (primary) hypertension (principal)
CPT/HCPCS: 36415; 80048; 83735

== ENCOUNTER → 2024-05-11 | Outpatient (CLI) | payer MEDICARE, OTHER, SELFPAY | END | disposition home or self-care (01) | LOC: LABSPEC 09:58 | PROVIDERS: PCP Internal Medicine; Referring Provider Physician Assistant; Visit Provider Physician Assistant | DX: R30.0 Dysuria (principal) ==

== ENCOUNTER → 2024-05-24 | Outpatient (CLI) | payer MEDICARE, OTHER, SELFPAY ==
[2024-05-24 12:33] LABS: Bacteria 0 SEEN /hpf (None Seen); Mucous, Urine 0 SEEN /hpf (<or=2+); White Blood Cells 0 SEEN /hpf (0-5)
[2024-05-24 12:48] LABS: Color, Urine Yellow (Yellow); Glucose, Dipstick Normal (Normal); Ketone-Dipstick Negative (Negative); Leukocyte Esterase-Dipstick Negative /ul (Negative); Nitrite-Dipstick Negative (Negative); Occult Blood-Urine Negative /ul (Negative); Protein-Dipstick Negative (Negative); Urine Bilirubin Dipstick Negative (Negative); Urine Clarity Clear (Clear); Urine Urobilinogen Normal (Normal)
[2024-05-24 13:16] LABS: Red Blood Cells-Urine 0-5 SEEN /hpf (0-5); Squamous Epithelial Cells - UA 0-5 SEEN /hpf (5-10)
== END | disposition home or self-care (01) ==
LOC: LAB 12:19
PROVIDERS: PCP Internal Medicine; Referring Provider Internal Medicine; Visit Provider Internal Medicine
DX: N39.0 Urinary tract infection, site not specified (principal)
CPT/HCPCS: 81001; 87086; 87088

== ENCOUNTER → 2024-06-22 | Outpatient (CLI) | payer MEDICARE, OTHER, SELFPAY ==
[2024-06-22 18:10] LABS: Chloride 98 mmol/L (96-108); EST Glomerular Filtration Rate 57 (>60); Potassium 3.5 mmol/L (3.3-5.1); Sodium Level 138 mmol/L (133-145); Vitamin B12 641 pg/mL (180-914); Vitamin D,25 Hydroxy 44.5 ng/mL (30-100)
[2024-06-22 18:37] LABS: ALB/GLOB Ratio 1.2 RATIO (0.9-2.4); AST(SGOT) 23 U/L (<=31); Alanine Aminotransfer ALT/SGPT 18 U/L (<=34); Albumin, Serum 4.2 g/dL (3.4-4.8); Alkaline Phosphatase 107 U/L (35-104); Anion Gap 16 (5-15); BUN 31 mg/dL (4-19); Calcium 9.8 mg/dL (7.6-11.0); Cholesterol 225 mg/dL (<=200); Globulin 3.4 g/dL (2.2-4.2); Glucose 100 mg/dL (70-99); High Density Lipoprotein 66 mg/dL; Magnesium 1.9 mg/dL (1.5-2.2); Protein, Total 7.6 g/dL (5.9-8.4); Total Bilirubin 0.26 mg/dL (0.00-1.30); Triglycerides 138 mg/dL; Very Low Density Lipoprotein 28 mg/dL (5-40)
== END | disposition home or self-care (01) ==
PROVIDERS: PCP Internal Medicine; Referring Provider Internal Medicine; Visit Provider Internal Medicine
DX: Z13.220 Encounter for screening for lipoid disorders (principal); E78.00 Pure hypercholesterolemia, unspecified; I10 Essential (primary) hypertension; E53.8 Deficiency of other specified B group vitamins; E55.9 Vitamin D deficiency, unspecified
CPT/HCPCS: 36415; 80053; 80061; 82306; 82607; 83735; 84443

== ENCOUNTER 2024-08-10 14:34 | Emergency (ER) | payer MEDICARE, OTHER, SELFPAY ==
[2024-08-10 14:35] VITALS: BP 153/69; PULSE 90; RESP 16; TEMP 35.9; O2SAT 97
--- NOTE | 2024-08-10 14:45 | RAD_ITS ---
PROCEDURE: ANKLE MIN 3 VIEWS 08/10/2024 REASON FOR EXAM: INJURY/PAIM TECHNIQUE: 3 views of the left ankle COMPARISON: None FINDINGS: Bones: Nondisplaced avulsion fracture of the lateral malleolus. Joints: Joint space narrowing of the distal tibial talar joint. Soft tissues: Soft tissue swelling. Other: RAD/Ankle min 3 Views IMPRESSION: Diffuse soft tissue swelling. Nondisplaced fracture of the lateral malleolus. Reading Location: [place] [address]
[2024-08-10] MEDS: Acetaminophen 325 MG Tablet 650 MG PO (16:40)
--- NOTE | 2024-08-10 16:42 | EDS_ITS ---
HPI History of Present Illness Chief Complaint: Lower Extremity Injury Narrative Narrative: 84-year-old female past medical history of remote bunion surgery of her left foot presents with injury to her left ankle that she sustained last Friday. This was approximately 6 days ago. She states that she fell in her kitchen. She thought she merely sprained her ankle and she states that the bruising on her foot has cleared, but her left lateral ankle remains swollen and she has pain with walking and weightbearing. She is taking Tylenol with mild relief. She presents with her granddaughter for evaluation of the injury to her left ankle that seems to be worsening. [facility] Medical History Wears hearing aid Wears glasses MRSA infection History of IBS Non-smoker CPAP (continuous positive airway pressure) dependence Sleep apnea History of echocardiogram Heart murmur Chronic GERD Osteoarthritis IBS (irritable bowel syndrome) Recurrent infections High cholesterol Hearing problem UTI (urinary tract infection) Degenerative disc disease GERD (gastroesophageal reflux disease) Hypertension Migraines Home Medications ?Medication ?Instructions ?Recorded ?Last Taken ?Type cholecalciferol (vitamin D3) 125 125 mcg PO DAILY 07/18 Unknown History mcg (5,000 unit) capsule coq10 1 tab PO 1XD 08/28/22 Unknow n History fremanezumab-vfrm 225 mg/1.5 mL 225 mg subcut QMONTH 0 08/28/22 Unknown History subcutaneous auto-injector (Ajovy) ketonazole shampoo 1 applic topical 1XD PRN dry skin 08/28/22 Unknown History magnesium 250 mg tablet See Rx Instructions PO DAILY 08/28/22 Unknown History methocarbamol 750 mg tablet 750 mg PO .COMPLEX PRN aaron n 08/28/22 Unknown History riboflavin (vitamin B2) 100 mg 100 mg PO BID 08/28/22 Unknown History tablet rizatriptan 10 mg tablet See Rx Instructions PO .COMP MARCIN 08/28/22 Unknown History triamcinolone acetonide 0.1 % 1 applic topical BID #30 grams 09/11/22 Unknown Rx topical cream diclofenac sodium 1 % topical gel 2 g topical BID PRN Osteoarthritis 09/30/22 Unknown Rx #100 grams diphenoxylate-atropine 2.5 1 tab PO BID PRN diarrhea # 30 tabs 05/19/23 Unknown Rx mg-0.025 mg tablet meclizine 12.5 mg tablet 12.5 mg PO BID-QID PRN motio n 05/19/23 Unknown Rx sickness #30 tabs amlodipine 5 mg tablet 5 mg PO QDAY 02/04/24 Unknow n History ezetimibe 10 mg tablet 10 mg PO QDAY 02/04/24 Unkno wn History potassium chloride 10 mEq 10 meq PO QDAY 02/04/24 Unkn own History capsule,extended release azithromycin 250 mg tablet See Rx Instructions PO .COM PLEX #6 05/11/24 Unknown Rx tabs meclizine 25 mg tablet 12.5 mg (1/2 x 25 mg) PO TID PRN 05/11/24 Unknown Rx dizziness #14 tabs omeprazole 20 mg capsule,delayed 20 mg PO DAILY #90 ca ps 05/26/24 Unknown Rx release sucralfate 1 gram tablet 1 g PO BID #180 tabs 5 Unknown Rx chlorthalidone 50 mg tablet 25 mg PO QDAY 06/28/24 Unk nown History colestipol 1 gram tablet 1 g PO TID #270 tabs 5 Unknown Rx Allergy/AdvReac Type Severity Reaction Status Date / Time albuterol Allergy Unknown Verified 08/10/24 14:35 amoxicillin Allergy Hives Verified 08/10/24 14:35 Penicillins Allergy Hives Verified 08/10/24 14:35 sulfamethoxazole (From Allergy Hives Verified 08/10/24 14:35 Bactrim) trimethoprim (From Bactrim) Allergy Hives Verified 08/10/24 14:35 Family History Mother Hypertension Arthritis Bowel disease Myocardial infarction, Onset Age: 70 Age related osteoporosis Father Diabetes Myocardial infarction, Onset Age: 50 Surgical History History of knee replacement (~2013) History of bladder surgery (~2003) FH: cholecystectomy Bunion (~1988) H/O: hysterectomy (~1980) Social History adopted: No household members: spouse housing: house number of children: 6 current occupational status: employed current occupation: [employer] current occupational exposures/hazards: No pets and animals: Yes pets and animals: cat(s) leisure activities: exercise, reading and other history of recent travel: No sexually active: No Smoking Status: Never smoker alcohol intake: never substance use type: does not use well-balanced diet: daily or most days caffeine: No eating out: rarely or never during the past year weight has: increased > 10 lbs what type of physical activity do you participate in: walking and aerobics brenda/rastafari: Sabianism seatbelt use: always do you feel safe at home: Yes ROS ROS ED ROS Narrative Review of systems positive for left lateral ankle pain and swelling. Prior bruising improving. Pain worse with weightbearing and walking. Has to use walker. Taking Tylenol with mild relief. EXAM Physical Exam Narrative Exam Narrative: GCS 15. ABCs intact. Inspection of the left ankle reveals mild tenderness and swelling about the left lateral malleolus. Palpable dorsalis pedis pulse. No medial malleoli or pain. No palpable Achilles tendon deficit. No pain at base of fifth metatarsal. No proximal fibular head tenderness. Able to flex and extend left knee. EHL intact, left. Const Vital Signs: 08/10/24 14:35 08/10/24 16:49 Temperature 96.6 F L 96.6 F L Temperature Source Temporal Pulse Rate 90 90 Respiratory Rate 16 16 Blood Pressure 153/69 H 153/69 H Blood Pressure Mean 97 97 Pulse Ox 97 97 Oxygen Delivery Method Room Air MDM MDM MDM Narrative Medical decision making narrative: Differential diagnosis includes fracture versus fracture dislocation versus ankle sprain. X-rays were obtained of the left ankle and 3 views and interpreted by myself independently. There is an avulsion fracture noted on the left distal fibula. I reviewed the radiology report which confirms my independent interpretation and comments on diffuse soft tissue swelling and a nondisplaced fracture of the lateral malleolus. Patient requested something for pain in the emergency department and I initially ordered an oxycodone which she had taken previously remotely, but she declined. She preferred Tylenol. She was administered 650 mg orally. I discussed the patient with Dr. Swann, who agrees that as the patient wants something more substantial instead of merely wrapping it, that she can be placed in a walking boot and be weightbearing as tolerated but should still use her walker. She has to follow-up with podiatry and call morning, 2 days from now for an appointment. Additionally, she declined prescription for narcotic pain medication at home as she lives alone. Disposition is discharged home in stable condition. History & Record Review Discussion w/independent historian: Patient Radiography Diagnostic Testing: Clinical Impression(s) from Imaging Studies Ankle X-Ray 08/10/24 14:45 IMPRESSION: Diffuse soft tissue swelling. Nondisplaced fracture of the lateral malleolus. [facility] T[facility] Chief Complaint: Lower Extremity Injury ED Provider: Ernesto Donohue Dx/Rx/DC Orders Clinical Impression: Avulsion fracture of ankle, Swelling of ankle joint, left Instructions: ED Ankle Fracture, ED Ankle Fracture, Distal Fibula Prescriptions: No Action triamcinolone acetonide 0.1 % cream 1 applic topical BID Qty: 30 1RF Ajovy Autoinjector 225 mg/1.5 mL auto-injector 225 mg subcut QMONTH methocarbamol 750 mg tablet 750 mg PO .COMPLEX PRN (Reason: pain) Rx Instructions: 1 - 2 tabs orally daily PRN; rizatriptan 10 mg tablet See Rx Instructions PO .COMPLEX Rx Instructions: take 1 tab at onset of headache; if no relief may repeat 1 tab after at least 2 hrs; max = 3 tabs/24 hr PO ketonazole shampoo 1 applic topical 1XD PRN (Reason: dry skin) Rx Instructions: 2% magnesium 250 mg tablet See Rx Instructions PO DAILY Rx Instructions: 2 tabs =500mg orally daily; coq10 1 tab PO 1XD Rx Instructions: 300mg daily riboflavin (vitamin B2) 100 mg tablet 100 mg PO BID cholecalciferol (vitamin D3) 125 mcg (5,000 unit) capsule 125 mcg PO DAILY potassium chloride 10 mEq capsule, extended release 10 meq PO QDAY amlodipine 5 mg tablet 5 mg PO QDAY ezetimibe 10 mg tablet 10 mg PO QDAY azithromycin 250 mg tablet See Rx Instructions PO .COMPLEX Qty: 6 0RF Rx Instructions: For 250 mg dose pack: take 500 mg today (day 1), then 250 mg for 4 days (days 2-5) PO meclizine 25 mg tablet 12.5 mg PO TID PRN (Reason: dizziness) Qty: 14 0RF diclofenac sodium 1 % gel 2 g topical BID PRN (Reason: Osteoarthritis) Qty: 100 5RF Rx Instructions: apply to affected area, wash hands after application. meclizine 12.5 mg tablet 12.5 mg PO BID-QID PRN (Reason: motion sickness) Qty: 30 1RF diphenoxylate-atropine 2.5-0.025 mg tablet 1 tab PO BID PRN (Reason: diarrhea) Qty: 30 1RF omeprazole 20 mg capsule,delayed release(DR/EC) 20 mg PO DAILY Qty: 90 3RF sucralfate 1 gram tablet 1 g PO BID Qty: 180 3RF chlorthalidone 50 mg tablet 25 mg PO QDAY colestipol 1 gram tablet 1 g PO TID Qty: 270 3RF Primary Care Provider: Sonya Sethi Referrals: Marcel Swann DPM [Med Staff - Active Staff] - Sonya Sethi MD [Primary Care Provider] - Activity Restrictions/Additional Instructions: Use your walker and continue your Tylenol. Weightbearing as tolerated. Wear your boot, but you may remove it for sleeping and bathing. Follow-up with Dr. Swann with podiatry, call the office on morning for an appointment. Print Language: Pashto Disposition Disposition: Home, Self Care
[2024-08-10 16:49] VITALS: BP 153/69; PULSE 90; RESP 16; TEMP 35.9; O2SAT 97
== END 2024-08-10 17:04 | disposition home or self-care (01) ==
LOC: ED 16:46
PROVIDERS: Emergency Provider Emergency Medicine; PCP Internal Medicine; Visit Provider Emergency Medicine
DX: S82.65XA Nondisplaced fracture of lateral malleolus of left fibula, initial encounter for closed fracture (principal); E78.00 Pure hypercholesterolemia, unspecified; I10 Essential (primary) hypertension; K21.9 Gastro-esophageal reflux disease without esophagitis; W19.XXXA Unspecified fall, initial encounter; Z98.890 Other specified postprocedural states
CPT/HCPCS: 73610; 99283

== ENCOUNTER → 2024-09-16 | Outpatient (CLI) | payer MEDICARE, OTHER, SELFPAY ==
[2024-09-16 11:18] LABS: Bacteria 0 SEEN /hpf (None Seen); Mucous, Urine 0 SEEN /hpf (<or=2+); Red Blood Cells-Urine 0 SEEN /hpf (0-5); White Blood Cells 0 SEEN /hpf (0-5)
[2024-09-16 12:28] LABS: Color, Urine Yellow (Yellow); Glucose, Dipstick Normal (Normal); Ketone-Dipstick Negative (Negative); Leukocyte Esterase-Dipstick Negative /ul (Negative); Nitrite-Dipstick Negative (Negative); Occult Blood-Urine Negative /ul (Negative); Protein-Dipstick 15 mg/dl (Negative); Urine Bilirubin Dipstick Negative (Negative); Urine Clarity Clear (Clear); Urine Urobilinogen Normal (Normal)
[2024-09-16 12:41] LABS: Squamous Epithelial Cells - UA 0-5 SEEN /hpf (5-10)
[2024-09-16 12:58] LABS: Anion Gap 14 (5-15); BUN 32 mg/dL (4-19); BUN/Creat Ratio 31.2 RATIO (10-20); Calcium,Total 8.2 mg/dL (7.6-11.0); Carbon Dioxide 25.4 mmol/L (21.0-32.0); Chloride 97 mmol/L (98-108); Creatinine, Serum 1.01 mg/dL (0.70-1.20); EST Glomerular Filtration Rate 55 (>60); Glucose 98 mg/dL (70-99); Potassium 3.5 mmol/L (3.3-5.1); Sodium Level 136 mmol/L (133-145)
[2024-09-16 14:17] LABS: Color, Urine Yellow (Yellow); Glucose, Dipstick Normal (Normal); Ketone-Dipstick Negative (Negative); Leukocyte Esterase-Dipstick Negative /ul (Negative); Nitrite-Dipstick Negative (Negative); Occult Blood-Urine Negative /ul (Negative); Protein-Dipstick 15 mg/dl (Negative); Specific Gravity, Urine 1.005 (1.002-1.030); Urine Bilirubin Dipstick Negative (Negative); Urine Clarity Clear (Clear); Urine Urobilinogen Normal (Normal); Urine pH 6.5 (5.0 - 8.0)
== END | disposition home or self-care (01) ==
PROVIDERS: PCP Internal Medicine; Referring Provider Internal Medicine; Visit Provider Internal Medicine
DX: R30.0 Dysuria (principal); I10 Essential (primary) hypertension; M19.90 Unspecified osteoarthritis, unspecified site; E78.00 Pure hypercholesterolemia, unspecified; K21.9 Gastro-esophageal reflux disease without esophagitis
CPT/HCPCS: 36415; 80048; 81001; 81002; 83735; 87086; 87088

== ENCOUNTER → 2024-10-18 | Outpatient (CLI) | payer MEDICARE, OTHER, SELFPAY ==
--- OUTSIDE RECORDS SUMMARY | 2024-10-15 07:53 | XMS RPT_ITS | CCD ---
Author Organization [facility] Care Team Providers Care Pathologist Name Role Phone ADITYA PORTILLO Attending Unavailable ADITYA PORTILLO Primary Care Unavailable ADITYA PORTILLO Admitting Unavailable Adarsh Conrad MD Unavailable Kenney Atkins MD Primary Care Provider Kenney Atkins MD Primary Care Provider MORRO OTTO Admitting Unavailable MORRO OTTO Attending Unavailable KENNEY ATKINS Primary Care Unavailable MORRO OTTO Admitting Unavailable MORRO OTTO Attending Unavailable KENNEY ATKINS Primary Care Unavailable Kenney Atkins MD Primary Care Provider Dr. Kenney Atkins Primary Care Provider Omega Bustillos Attending Provider Unavailable Dr. Santa Sethi Attending Provider Kenney Atkins MD Primary Care Provider Dr. Kenney Atkins Referring Provider Dr. Shalom Pratt Attending Provider Dr. Santa Sethi Primary Care Provider Dr. Santa Sethi Referring Provider Dr. Shalom Pratt Other Provider Santa Sethi MD Primary Care Provider Kenney Atkins MD Primary Care Provider Dr. Santa Sethi Primary Care Provider Dr. Santa Sethi Attending Provider Dr. Santa Sethi Primary Care Provider Dr. Santa Sethi Attending Provider [phone] Santa Sethi Referring Provider [phone] Randy Hussein Attending Provider [phone] KOREY Kapoor Attending Provider Dr. Santa Sethi Other Provider Dr. Sonny Sanchez Attending Provider Santa Sethi MD Primary Care Provider Kenney Atkins MD Primary Care Provider [place], ALDOAKRAJ Referring Unavailable SANTA SETHI Primary Care Unavailable GAJAILYN, ALDOAKRAJ Attending Unavailable SANTA SETHI Primary Care Unavailable [place], VLAERIE Attending Unavailable SANTA SETHI Referring Unavailable SANTA SETHI Primary Care Unavailable Dr. Santa Sethi MD Primary Care Provider [phone] Dr. Santa Sethi MD Referring Provider Fer Wyatt Attending Provider [phone] Fer Wyatt Referring Provider Dr. Santa Sethi MD Attending Provider Ernesto Donohue MD Emergency Provider Dr. Santa Sethi MD Primary Care Provider Dr. Santa Sethi MD Attending Provider Dr. Santa Sethi MD Referring Provider Ernesto Donohue MD Attending Provider SANTA SETHI Primary Care Unavailable SHEILA INGRAM Attending Unavailable SELF Referring Unavailable PETER PATTON Referring Unavailable SANTA SETHI Primary Care Unavailable PETER PATTON Referring Unavailable SANTA SETHI Primary Care Unavailable PETER PATTON Attending Unavailable SANTA SETHI Primary Care Unavailable GATIMBOANA, ALDOAKRARula Referring Unavailable SANTA SETHI Primary Care Unavailable TERRANCE MCCAIN Attending Unavailable NAVDEEP, SANTA M Primary Care Unavailable [place] VALERIE Referring Unavailable Navdeep, Santa Attending Unavailable Navdeep, Santa Primary Care Unavailable Navdeep, Santa Referring Unavailable Navdeep, Santa Attending Unavailable Navdeep, Santa Primary Care Unavailable Navdeep, Santa Referring Unavailable Navdeep, Santa Primary Care Unavailable Fer Wyatt Referring Unavailable Fer Wyatt Attending Unavailable Navdeep, Santa Primary Care Unavailable Navdeep, Santa Referring Unavailable Steve Viera Attending Unavailable Navdeep, Santa Primary Care Unavailable Dulce Chapman Attending Unavailable Navdeep, Santa Primary Care Unavailable Navdeep, Santa Attending Unavailable Navdeep, Santa Primary Care Unavailable Navdeep, Santa Referring Unavailable Steve Viera Attending Unavailable Navdeep, Santa Primary Care Unavailable Navdeep, Santa Attending Unavailable Navdeep, Santa Referring Unavailable Navdeep, Santa Primary Care Unavailable Fer Wyatt Attending Unavailable Navdeep, Santa Referring Unavailable Navdeep, Santa Primary Care Unavailable Navdeep, Santa Attending Unavailable Navdeep, Santa Referring Unavailable Navdeep, Santa Primary Care Unavailable Navdeep, Santa Attending Unavailable Navdeep, Santa Attending Unavailable Navdeep, Santa Referring Unavailable Navdeep, Santa Primary Care Unavailable Navdeep, Santa Primary Care Unavailable Navdeep, Santa Attending Unavailable Navdeep, Santa Primary Care Unavailable Ernesto Donohue Attending Unavailable Navdeep, Santa Primary Care Unavailable Steve Viera Referring Unavailable Steve Viera Attending Unavailable Navdeep, Santa Primary Care Unavailable Navdeep, Santa Referring Unavailable Navdeep, Santa Attending Unavailable Allergies Allergy Classification Reported Allergen(s) Allergy Type Date of Onset Reaction(s) Facility (20 sources) Amoxicillin; Translations: [AMOXICILLIN] Drug Allergy 05-13-19 04 [facility] Work Phone: (2 sources) Hmg-Coa Reductase Inhibitors (Statins) drug allergy 06-12-19 Unknown [facility] Work Phone: (2 sources) Penicillins (Antibiotic) drug allergy 06-12-19 [facility] Work Phone: (2 sources) Sulfamethoxazole / Trimethoprim Drug Allergy 06-12-19 22 headaches [facility] Work Phone: (20 sources) Albuterol; Translations: [ALBUTEROL] Drug Allergy 04-04-20 11 Intolerance [facility] Work Phone: (20 sources) Amitriptyline; Translations: [AMITRIPTYLINE] Drug Allergy 02-24-20 15 Mental Status Change [facility] Work Phone: (20 sources) Angiotensin Converting Enzyme (Cristine) Inhibitors; Translations: [CRISTINE INHIBITORS] allergy to substance 05-13-19 04 Other: See Comments [facility] Work Phone: (20 sources) Caffeine; Translations: [CAFFEINE] Drug Allergy 05-13-19 04 Mental Status Change [facility] Work Phone: (20 sources) Codeine; Translations: [CODEINE] Drug Allergy 07-18-19 22 GI Upset, Other: See Comments [facility] Work Phone: (20 sources) Doxycycline; Translations: [DOXYCYCLINE HYCLATE] Drug Allergy 08-10-19 08 Hives [facility] Work Phone: (1 source) fluticasone / salmeterol; Translations: [ADVAIR DISKUS] Drug Allergy 07-18-19 22 sore mouth [facility] Work Phone: (1 source) levoFLOXacin; Translations: [LEVAQUIN] Drug Allergy 07-18-19 22 dizziness at 500mg dose [facility] Work Phone: (1 source) traMADol Drug Allergy 07-18-19 22 headache [facility] Work Phone: (1 source) PNEUMOVAX; Translations: [PNEUMOVAX] food allergy 07-18-19 22 arm swelled up for about 8 months [facility] Work Phone: (20 sources) HYDANTOINS; Translations: [HYDANTOINS] drug allergy 05-13-19 04 Other: See Comments [facility] Work Phone: (20 sources) fluticasone / salmeterol; Translations: [FLUTICASONE PROPION-SALMETEROL] Drug Allergy 04-04-20 11 Intolerance [facility] (6 sources) HMG-CoA reductase inhibitor; Translations: [QRGDMDS-LDB-IOQ REDUCTASE INHIBITORS] Propensity to adverse reactions to drug 03-22-20 15 Other: See Comments [facility] (20 sources) levoFLOXacin; Translations: [LEVOFLOXACIN] Drug Allergy 10-14-19 19 Intolerance [facility] Work Phone: (20 sources) Streptococcus pneumoniae [...] Drug Allergy 08-10-19 06 Other: See Comments [facility] (20 sources) Sulfamethoxazole / Trimethoprim; Translations: [SULFAMETHOXAZOLE-T RIMETHOPRIM] Drug Allergy 12-11-19 11 Rash, Other: See Comments [facility] Work Phone: (20 sources) traMADol; Translations: [TRAMADOL HCL] Drug Allergy 02-22-20 14 Other: See Comments [facility] Work Phone: (20 sources) HMG-CoA reductase inhibitor Propensity to adverse reactions to drug 03-22-20 15 Other: See Comments [facility] (12 sources) Penicillins; Translations: [Penicillins] Allergy to substance 11-27-19 [facility] (11 sources) Sulfamethoxazole Drug Allergy 11-27-19 [facility] (11 sources) Trimethoprim Drug Allergy 11-27-19 [facility] (19 sources) Lisinopril; Translations: [LISINOPRIL] Drug Allergy 11-24-19 24 Other: See Comments [facility] (1 source) Amoxicillin Drug Allergy 09-17-19 [facility] (1 source) Sulfamethoxazole Drug Allergy 09-17-19 [facility] (1 source) Trimethoprim Drug Allergy 09-17-19 [facility] Medications Current Medications Medication Drug Class(es) Dates Sig (Normalized) Sig (Original) Acetaminophen (20 sources) acetaminophen (T YLENOL ORAL) Take by mouth as needed. Active acetaminophen (T YLENOL ORAL) Take by mouth as needed. 0 Active acetaminophen (T YLENOL ORAL) Take by mouth. 0 Active TYLENOL 325 MG T ABS 2 tablet by mouth as needed acetaminophen [id number] Madison Lambert AT Comment on above: Take by mouth. Take by mouth as nee ded. acetaminophen 325 mg / HYDROcodone bitartrate 5 mg oral tablet (20 sources) Opioid Agonist Start: 08-13-2024 End: 08-20-2024 take 1 tablet by mouth every six hours as needed for pain HYDROcodone-acetami nophen (NORCO) 5-325 mg per tablet Indications: Closed avulsion fracture of left ankle, initial encounter Take 1 tablet by mouth every 6 hours as needed for pain for up to 7 days. 20 tablet 08/13/2024 08/20/2024 Active Start: 12-14-2021 End: 12-17-2021 take 1 tablet by mouth every eight hours as needed for pain HYDROcodone-acetaminophen (NORCO) 5-325 mg per tablet Indications: Neck pain Take 1 tablet by mouth every 8 hours as needed for pain. 30 tablet 12/17/2021 Active Start: 11-26-2021 End: 09-11-2022 Hydrocodone-Acetaminophen 1 TABLET tablet Discontinued 1 {tbl} PO EVERY 6 HOURS NEEDED as needed for Pain 12 November 26, 2021 September 11, 2022 3:22pm Start: 11-26-2021 End: 09-11-2022 take 1 tablet by mouth every six hours as needed Hydrocodone-Acetaminophen Discontinued 1 TABLET PO EVERY 6 HOURS NEEDED 12 November 26, 2021 September 11, 2022 3:22pm Comment on above: Take 1 tablet by dom th every 8 hours as needed for pain. atropine sulfate 0.025 mg / diphenoxylate hydrochloride 2.5 mg oral tablet (20 sources) Anticholinergic, Cholinergic Muscarinic Antagonist, Antidiarrheal Start: take 1 tablet by mouth twice daily Diphenoxylate-At ropine Active 1 TABLET PO TWICE A DAY May 19, 2023 1:00am Start: 09-14-2019 End: 02-19-2022 Diphenoxylate-Atropine 2.5-0 .025 mg tablet Active 1 {tbl} PO TWICE A DAY as needed for diarrhea May 19, 2023 1:00am Comment on above: Take 1 tablet by dom th twice daily as needed for Diarrhea for up to 90 days. benzonatate 100 mg oral capsule (20 sources) Non-narcotic Antitussive Start: 01-15-20 End: 12-04-19 take 2 capsules by mouth every eight hours as needed benzonatate (TESSALON PERLES) 100 mg capsule Take 2 capsules by mouth three times daily as needed. 30 capsule 01/14/2023 Active Comment on above: Take 2 capsules by m out three times daily as needed. cefdinir 300 mg oral capsule (5 sources) Cephalosporin Antibacterial Start: 01-15-20 End: 01-22-20 take 1 capsule by mouth twice daily cefdinir (OMNICEF) 300 mg capsule Take 1 capsule by mouth twice daily for 7 days. 14 capsule 0 01/14/2023 01/21/2023 Active Start: 04-23-2022 End: 05-03-2022 take 1 capsule by mouth twice daily cefdinir (OMNICEF) 300 mg capsule Take 1 capsule by mouth twice daily for 10 days. 20 capsule 0 04/23/2022 05/03/2022 Comment on above: Take 1 capsule by [facility] twice daily for 10 days. Take 1 capsule by [facility] twice daily for 7 days. chlorthalidone 50 mg oral tablet (20 sources) Thiazide-like Diuretic Start: 06-28-2024 End: 09-16-2024 Chlorthalidone 50 mg tablet Active 25 mg PO daily 90 September 16, 2024 9:31am Start: 12-30-2023 End: 06-28-2024 take 1 tablet by mouth once daily chlorthalidone (HYGROTON) 50 mg tablet Indications: Primary hypertension Take 1 tablet by mouth once daily. 90 tablet 3 12/30/2023 Active Start: 11-24-2023 End: 12-24-2023 take 1 tablet by mouth once daily chlorthalidone (HYGROTON) 50 mg tablet Indications: Primary hypertension Take 1 tablet by mouth once daily. 30 tablet 12/23/2023 12/24/2023 Discontinued Start: 07-10-2021 End: 06-04-2022 take 0.5 tablet by mouth once daily chlorthalidone (HYGROTON) 25 mg tablet Indications: Essential hypertension Take 0.5 tablets by mouth once daily. 90 tablet 3 07/10/2021 06/04/2022 Discontinued Start: 05-24-2021 End: 12-14-2021 take 1 tablet by mouth once daily chlorthalidone (HYGROTON) 25 mg tablet Indications: Essential hypertension Take 1 tablet by mouth once daily. 10 tablet 0 05/24/2021 12/14/2021 Discontinued Start: 12-05-2020 End: 05-24-2021 take 0.5 tablet by mouth once daily chlorthalidone (HYGROTON) 25 mg tablet Indications: Essential hypertension Take 0.5 tablets by mouth once daily. 90 tablet 3 12/05/2020 05/24/2021 Discontinued Comment on above: Take 1 tablet by [facility] once daily. Take 0.5 tablets by mouth once daily. cholecalciferol 0.125 mg oral capsule (11 sources) Vitamin D Start: 08-29-19 take 1 capsule by mouth once daily Cholecalciferol (Vitamin D3) 125 mcg (5,000 unit) capsule Active 125 ug PO DAILY August 28, 2022 12:00am take 1 tablet by mouth once clinton y D-5000 125 MCG (5000 UT) TABS 1 tablet by mouth once a day cholecalciferol (vitamin d3) [id number] Madison Lambert AT cholecalciferol, vitamin D3, (VITAMIN D3 ORAL) (20 sources) take 5000 [IU] by mouth once daily cholecalciferol, vitamin D3, (VITAMIN D3 ORAL) Take 5,000 Units by mouth once daily. Active take 5000 [IU] by mouth once rangel ly cholecalciferol, vitamin D3, (VITAMIN D3 ORAL) Take 5,000 Units by mouth once daily. 0 Active cholecalciferol, vitamin D3, (VITAMIN D3 ORAL) Take 5,000 Units by mouth. 0 Active Comment on above: Take 5,000 Units by mouth. Take 5,000 Units by mouth once daily. sugar-free cholestyramine resin 4000 mg powder for oral suspension (2 sources) Bile Acid Sequestrant Start: 06-18-19 take 1 scoop(s) by mouth once daily Cholestyramine-Asp artame (Cholestyramine Light Powder) 210 GM powder Active 1 DOSE PO DAILY June 18, 2018 1:00am 1 scoop daily clobetasol propionate 0.5 mg/ml topical lotion (1 source) Corticosteroid Start: 09-17-19 Clobetasol 0.05 % lotion Active 1 NMA TOPICAL daily 118 September 16, 2024 12:00am colestipol hydrochloride 1000 mg oral tablet (20 sources) Bile Acid Sequestrant Start: 05-26-19 24 End: 07-06-19 25 Colestipol 1 gram tablet Active 1 g PO THREE TIMES A DAY 270 July 05, 2024 1:08pm Start: 11-11-2022 End: 05-26-2023 Colestipol 1 gram tablet Dis continued 1 g PO DAILY 90 May 19, 2023 5:30pm May 26, 2023 11:56am Start: 07-02-2022 take 3 tablets by mo uth once daily colestipol (COLESTID) 1 gram tablet Indications: Functional bowel disorder , Mixed hyperlipidemia Take 3 tablets by mouth once daily. 270 tablet 3 07/02/2022 Active Start: 12-05-2020 End: 05-02-2022 take 3 tablets by mouth once daily colestipol (COLESTID) 1 gram tablet Indications: Functional bowel disorder , Mixed hyperlipidemia Take 3 tablets by mouth once daily. 90 tablet 3 05/03/2022 Active COLESTIPOL HCL 1 GM TABS 1 tablet once a day colestipol [id number] Maureen Dumont RN Comment on above: Take 3 tablets by [facility] once daily. coq10 (10 sources) Start: 08-28-2022 take 300 mg by mouth once daily coq10 Active 1 {tbl} PO 1 time daily August 28, 2022 12:00am 300mg daily Start: 08-28-2022 take 1 tablet by mouth once da andrew coq10 Active 1 TABLET PO 1 time daily August 27, 2022 11:00pm 300mg daily Start: 08-28-2022 take 1 tablet by mouth once da andrew coq10 Active 1 TABLET PO 1 time daily August 28, 2022 12:00am 300mg daily Start: 08-28-2022 take 300 mg by mouth once clinton y coq10 Active PO August 28, 2022 12:00am 300mg daily diclofenac sodium 0.01 mg/mg topical gel (10 sources) Nonsteroidal Anti-inflammatory Drug Start: 09-30-2022 Diclofenac Sodium 1 % gel Active 2 g TOPICAL TWICE A DAY as needed for Osteoarthritis September 30, 2022 12:00am apply to affected area, wash hands after application. Start: 09-30-2022 Diclofenac Sod ium Active 2 GM TOPICAL TWICE A DAY September 30, 2022 12:00am apply to affected area, wash hands after application. 1 ml erenumab-aooe 140 mg/ml auto-injector (8 sources) Start: 07-20-2024 Erenumab-Aooe (Aimovig Autoinjector) 140 mg/mL auto-injector Active mg SC September 16, 2024 12:00am Start: 04-28-2021 End: 07-05-2021 inject 1 mL by subcutaneous injection every month erenumab-aooe 140 mg/mL subcutaneous auto-injector (AIMOVIG) Inject 1 mL subcutaneously once every month. 3 mL 3 04/28/2021 07/05/2021 Discontinued Comment on above: Inject 1 mL subcutan eously once every month. estradiol (E2) emollient cream 0.2 mg/gram (CPD) (19 sources) Start: 12-26-20 23 estradiol (E2) emollient cream 0.2 mg/gram (CPD) Indications: Atrophic vaginitis Finger-Tip amount applied to indicated area at bedtime every other day 20 g 4 04/22/2023 Active Comment on above: Finger-Tip amount ap plied to indicated area at bedtime every other day ezetimibe 10 mg oral tablet (20 sources) Dietary Cholesterol Absorption Inhibitor Start: 12-30-19 End: 09-17-19 25 take 1 tablet by mouth once daily ezetimibe (ZETIA) 10 mg tablet Indications: Mixed hyperlipidemia Take 1 tablet by mouth once daily. 90 tablet 3 12/30/2023 Active Start: 11-24-2023 End: 12-24-2023 take 1 tablet by mouth once daily ezetimibe (ZETIA) 10 mg tablet Indications: Mixed hyperlipidemia Take 1 tablet by mouth once daily. 30 tablet 12/23/2023 12/24/2023 Discontinued fluconazole 150 mg oral tablet (20 sources) Azole Antifungal Start: 05-13-2022 End: 07-23-2022 fluconazole (DIFLUCAN) 150 mg tablet Take 1 tablet by mouth Every 3 Days. 3 tablet 1 07/23/2022 Active Start: 02-08-2022 End: 02-11-2022 take 1 tablet by mouth once daily fluconazole (DIFLUCAN) 100 mg tablet Take 1 tablet by mouth once daily for 3 days. 3 tablet 0 02/08/2022 02/11/2022 Active Comment on above: Take 1 tablet by dom th once daily for 3 days. Take 1 tablet by dom th Every 3 Days. 1.5 ml fremanezumab-vfrm 150 mg/ml auto-injector (20 sources) Start: 07-19-2024 inject 1.5 mL by subcutaneous injection every month AJOVY AUTOINJECTOR 225 mg/1.5 mL auto-injector INJECT 1.5 ML UNDER THE SKIN ONCE EVERY MONTH, DO NOT SHAKE 4.5 mL 3 07/19/2024 Active Start: 08-28-2022 End: 09-16-2024 Fremanezumab-Vfrm (Ajovy Autoinjector) 225 mg/1.5 mL auto-injector Discontinued 225 mg SC EVERY MONTH August 28, 2022 12:00am September 16, 2024 9:23am Start: 07-05-2021 End: 07-19-2024 inject 1.5 mL by subcutaneous injection every month fremanezumab-vfrm (AJOVY AUTOINJECTOR) 225 mg/1.5 mL auto-injector Inject 1.5 mL subcutaneously once every month. Do not shake. 4.5 mL 3 06/25/2023 07/19/2024 Discontinued Comment on above: Inject 1.5 mL subcut aneously once every month. Do not shake. ketoconazole 20 mg/ml medicated shampoo (20 sources) Azole Antifungal Start: 02-12-2022 ketoconazole (NIZORAL) 2 % shampoo Apply to scalp rash every other day until clear- Lather and rinse and then lather 2nd time and leave set on hair for 5 min and rinse again. 120 mL 2 02/12/2022 Active Comment on above: Apply to scalp rash every other day until clear- Lather and rinse and then lather 2nd time and leave set on hair for 5 min and rinse again. ketonazole shampoo (10 sources) Start: 08-28-2022 ketonazole shampoo Active 1 NMA TOPICAL 1 time daily as needed for dry skin August 28, 2022 12:00am 2% Start: 08-28-2022 ketonazole sha mpoo Active 1 APPLIC TOPICAL 1 time daily August 27, 2022 11:00pm 2% Start: 08-28-2022 ketonazole sha mpoo Active 1 APPLIC TOPICAL 1 time daily August 28, 2022 12:00am 2% Start: 08-28-2022 ketonazole sha mpoo Active TOPICAL August 28, 2022 12:00am 2% Magnesium (20 sources) Start: 08-28-2022 take 2 tablets by mo uth once daily Magnesium 250 mg tablet Active 0 PO DAILY August 28, 2022 12:00am 2 tabs =500mg orally daily; Start: 08-28-2022 take 2 tablets by mo uth once daily Magnesium Active 0 PO DAILY August 27, 2022 11:00pm 2 tabs =500mg orally daily; Start: 08-28-2022 take 2 tablets by mo uth once daily Magnesium Active 0 PO DAILY August 28, 2022 12:00am 2 tabs =500mg orally daily; take 500 mg by mouth once daily at bedtime MAGNESIUM ORAL Take 500 mg by mouth daily at bedtime. Active take 500 mg by mouth once daily at bedtime MAGNESIUM ORAL Take 500 mg by mouth daily at bedtime. 0 Active take 1 tablet by mouth at bedtim e magnesium 500mg 500mg 1 tablet by mouth at bedtime magnesium 500mg 500mg Madison Delgadomatilda AT Comment on above: Take 500 mg by mouth daily at bedtime. meclizine hydrochloride 12.5 mg oral tablet (20 sources) Antiemetic Start: 05-11-2024 Meclizine 25 mg tablet Active 12.5 mg PO THREE TIMES A DAY as needed for dizziness May 11, 2024 1:00am Start: 08-28-2022 End: 09-16-2024 Meclizine 12.5 mg tablet Act kel 12.5 mg PO 2 to 4 times per day as needed for motion sickness September 16, 2024 9:30am Start: 07-10-2021 take 1 tablet by dom th three times daily as needed for dizziness meclizine (ANTIVERT) 12.5 mg tab Indications: vertigo Take 1 tablet by mouth three times daily as needed (dizziness). 90 tablet 1 07/10/2021 Active Comment on above: Take 1 tablet by dom th three times daily as needed (dizziness). methocarbamol 750 mg oral tablet (20 sources) Muscle Relaxant Start: 08-29-19 take 1-2 tablets by mouth once daily as needed for pain Methocarbamol 750 mg tablet Active 750 mg PO .COMPLEX as needed for pain August 28, 2022 12:00am 1 - 2 tabs orally daily PRN; Start: 12-05-2020 End: 05-26-2024 take 1 tablet by mouth twice daily as needed methocarbamol (ROBAXIN) 750 mg tablet Indications: Migraine without aura and without status migrainosus, not intractable , Neck pain Take 1 tablet by mouth two times a day as needed. 60 tablet 3 05/26/2024 Active Comment on above: Take 1 tablet by dom th twice daily as needed. mometasone furoate 1 mg/ml topical cream (15 sources) Corticosteroid Start: 09-16-2024 Mometasone 0.1 % cream Active 1 NMA TOPICAL daily September 16, 2024 12:00am Start: 07-23-2022 End: 10-21-2022 mometasone (ELOCON) 0.1 % cr eam Apply 1 application to affected area once daily. Uses as needed 43 g 3 07/23/2022 10/21/2022 Start: 11-13-2021 End: 02-11-2022 mometasone (ELOCON) 0.1 % cr eam Apply 1 application to affected area once daily. 80 g 0 11/13/2021 02/11/2022 Active Comment on above: Apply 1 application to affected area once daily. Apply 1 application to affected area once daily. Uses as needed nitrofurantoin, macrocrystals 50 mg oral capsule (20 sources) Nitrofuran Antibacterial Start: 04-22-20 End: 04-21-20 take 1 capsule by mouth once daily nitrofurantoin macrocrystal (MACRODANTIN) 50 mg capsule Indications: Atrophic vaginitis , Dysuria Take 1 capsule by mouth once daily. 90 capsule 3 04/22/2023 04/21/2024 Active Start: 11-09-2021 End: 02-08-2023 take 1 capsule by mouth once daily nitrofurantoin macrocrystal (MACRODANTIN) 50 mg capsule Indications: Atrophic vaginitis , Dysuria Take 1 capsule by mouth once daily. 90 capsule 3 02/08/2022 02/08/2023 Start: 11-09-2021 End: 11-09-2021 take 1 capsule by mouth four times daily nitrofurantoin macrocrystal (MACRODANTIN) 50 mg capsule Indications: Dysuria Take 1 capsule by mouth four times daily. 120 capsule 2 11/09/2021 11/09/2021 Discontinued Comment on above: Take 1 capsule by mo uth four times daily. Take 1 capsule by mo uth daily at bedtime. Take 1 capsule by mo uth once daily. omeprazole 20 mg delayed release oral capsule (20 sources) Proton Pump Inhibitor Start: 09-18-2023 End: 05-26-2024 take 1 capsule by mouth once daily Omeprazole 20 mg capsule,delayed release(DR/EC) Active 20 mg PO DAILY May 26, 2024 4:27pm Start: 12-05-2020 End: 11-12-2021 omeprazole (PRILOSEC) 40 mg capsule TAKE 1 CAPSULE DAILY capsule 3 11/12/2021 Active Start: 06-18-2018 End: 09-18-2023 take 2 capsules by mouth once daily Omeprazole 20 mg capsule,delayed release(DR/EC) Discontinued 40 mg PO DAILY May 19, 2023 5:31pm September 18, 2023 8:53am Start: 06-18-2018 End: 05-19-2023 take 40 mg by mouth once daily Omeprazole Active 40 MG PO DAILY May 19, 2023 5:31pm Start: 06-18-2018 take 20 mg by mouth once daily Omeprazole Active 20 MG PO DAILY June 18, 2018 1:00am Comment on above: Take 1 capsule by mo ut once daily. TAKE 1 CAPSULE DAILY microencapsulated potassium chloride 10 meq extended release oral tablet (20 sources) Start: End: take 1 tablet by mouth twice daily potassium chloride ER (KLOR-CON M10) 10 mEq tablet Indications: Hypokalemia Take 1 tablet by mouth two times a day. 60 tablet 3 02/17/2024 Active Start: 02-04-2024 take 1 capsule by mo ut once daily Potassium Chloride 10 mEq capsule, extended release Active 10 meq PO daily February 04, 2024 12:00am Start: 12-30-2023 End: 02-17-2024 take 1 capsule by mouth once daily potassium chloride SR (MICRO-K) 10 mEq CR capsule Indications: Hypokalemia Take 1 capsule by mouth once daily. 90 capsule 3 12/30/2023 02/17/2024 Discontinued Start: 12-23-2023 End: 12-24-2023 take 1 capsule by mouth once daily potassium chloride SR (MICRO-K) 10 mEq CR capsule Indications: Hypokalemia Take 1 capsule by mouth once daily. 30 capsule 12/23/2023 12/24/2023 Discontinued Start: 12-05-2020 End: 12-08-2023 take 1 capsule by mouth once daily potassium chloride SR (MICRO-K) 10 mEq CR capsule Indications: Hypokalemia Take 1 capsule by mouth once daily. 90 capsule 3 11/24/2023 12/08/2023 Discontinued Start: 06-18-2018 End: 09-11-2022 take 1 tablet by mouth once daily Potassium Chloride 10 MEQ tablet,ER particles/crystals Discontinued 10 meq PO DAILY June 18, 2018 1:00am September 11, 2022 3:22pm take 1 tablet by [facility] once daily K-TAB 10 MEQ CR-TABS 1 tablet by mouth once a day potassium chloride [id number] Madison Lambert AT K-TAB 20 MEQ CR- TABS 1 tablet once a day potassium chloride [id number] Maureen Dumont RN Comment on above: Take 1 capsule by [facility] once daily. predniSONE 10 mg oral tablet (2 sources) Start: 04-29-2022 End: 05-04-2022 take 5 tablets by mouth once daily, then take 4 tablets by mouth once daily, then take 3 tablets by mouth once daily, then take 2 tablets by mouth once daily, then take 1 tablet by mouth once daily predniSONE (DELTASONE) 10 mg tablet Indications: Wheezing Take 5 tablets by mouth once daily for 1 day, THEN 4 tablets once daily for 1 day, THEN 3 tablets once daily for 1 day, THEN 2 tablets once daily for 1 day, THEN 1 tablet once daily for 1 day. 15 tablet 0 04/29/2022 05/04/2022 Active Comment on above: Take 5 tablets by [facility] once daily for 1 day, THEN 4 tablets once daily for 1 day, THEN 3 tablets once daily for 1 day, THEN 2 tablets once daily for 1 day, THEN 1 tablet once daily for 1 day. riboflavin 100 mg oral tablet (20 sources) Start: 08-28-2022 take 1 tablet by mouth twice daily Riboflavin (Vitamin B2) 100 mg tablet Active 100 mg PO TWICE A DAY August 28, 2022 12:00am riboflavin, isaura min B2, (VITAMIN B2) 100 mg tab Take 200 mg by mouth twice daily. Active Comment on above: Take 200 mg by mouth twice daily. rizatriptan 10 mg oral tablet (20 sources) Serotonin-1b and Serotonin-1d Receptor Agonist Start: 03-07-20 End: 05-26-19 take 1 tablet by mouth every two hours as needed for headache rizatriptan (MAXALT) 10 mg tablet Indications: Migraine without aura and without status migrainosus, not intractable , Neck pain Take 1 tablet (10 mg) by mouth as needed (at onset of headache. May repeat after 2 hours.). Do not exceed 30 mg per day. 10 tablet 3 05/26/2024 Active Comment on above: Take 1 tablet by dom th as needed (at onset of headache. May repeat after 2 hours.). Do not exceed 30 mg per day. Take 1 tablet (10 mg ) by mouth as needed (at onset of headache. May repeat after 2 hours.). Do not exceed 30 mg per day. spironolactone 25 mg oral tablet (20 sources) Aldosterone Antagonist Start: 07-24-19 End: 09-18-19 24 take 1 tablet by mouth once daily spironolactone (ALDACTONE) 25 mg tablet Take 1 tablet by mouth once daily. 90 tablet 3 07/23/2022 Active Start: 06-04-2022 End: 07-23-2022 take 1 tablet by mouth once daily spironolactone (ALDACTONE) 50 mg tablet Take 1 tablet by mouth once daily. 30 tablet 5 06/04/2022 07/23/2022 Discontinued Comment on above: Take 1 tablet by dom once daily. sucralfate 1000 mg oral tablet (20 sources) Aluminum Complex Start: 07-02-2022 End: 09-16-2024 take 1 tablet by mouth twice daily sucralfate (CARAFATE) 1 gram tablet Take 1 tablet by mouth twice daily. 360 tablet 3 07/02/2022 Active Start: 12-05-2020 End: 05-17-2022 take 1 tablet by mouth twice daily sucralfate (CARAFATE) 1 gram tablet Take 1 tablet by mouth twice daily. 120 tablet 3 07/10/2021 Active Comment on above: Take 1 tablet by dom twice daily. triamcinolone acetonide 1 mg/ml topical cream (10 sources) Corticosteroid Start: 09-11-2022 Triamcinolone Acetonide 0.1 % cream Active 1 NMA TOPICAL TWICE A DAY September 11, 2022 12:00am ubidecarenone 100 mg oral capsule (20 sources) coenzyme Q10 (CO ENZYME Q-10) 100 mg cap capsule Take 200 mg by mouth once daily. Active take [address] [facility] once daily in the morning CO Q-10 300 MG CAPS 1 capsule by mouth every morning coenzyme q10 [id number] Madison Lambert AT Comment on above: Take 200 mg by mouth once daily. Completed/Discontinued Medications Medication Drug Class(es) Dates Sig (Normalized) Sig (Original) amLODIPine 5 mg oral tablet (11 sources) Dihydropyridine Calcium Channel Maren Start: 12-30-2023 End: 09-16-2024 take 1 tablet by mouth once daily Amlodipine 5 mg tablet Discontinued 5 mg PO daily February 04, 2024 12:00am September 16, 2024 9:23am Start: 11-24-2023 End: 12-24-2023 take 1 tablet by mouth once daily amLODIPine (NORVASC) 5 mg tablet Indications: Primary hypertension Take 1 tablet by mouth once daily. 30 tablet 12/23/2023 12/24/2023 Discontinued amovig 140mg 140mg (1 source) amovig 140mg 140 mg 1 syringe subcutaneously once a month amovig 140mg 140mg Madison Bordonaro AT Ascorbic Acid / Collagen (1 source) Vitamin C take 1 capsule by mouth once daily COLLAGEN PLUS VITAMIN C 740-125 MG CAPS 1 capsule by mouth once a day ascorbic acid-collagen [id number] Madison Bordonaro AT azithromycin 250 mg oral tablet (8 sources) Macrolide Antimicrobial Start: 02-04-20 End: 09-17-19 Azithromycin 250 mg tablet Discontinued 0 PO .COMPLEX May 11, 2024 1:00am September 16, 2024 9:16am For 250 mg dose pack: take 500 mg today (day 1), then 250 mg for 4 days (days 2-5) PO Start: 06-04-2022 End: 06-09-2022 azithromycin (ZITHROMAX Z-PA K) 250 mg tablet Take 2 tablets day one, then, 1 tablet daily until gone. 6 tablet 2 06/04/2022 06/09/2022 Comment on above: Take 2 tablets day o ne, then, 1 tablet daily until gone. Bupivacaine (20 sources) Amide Local Anesthetic Start: 11-30-2019 End: 09-26-2022 bupivacaine 7.5 mg injection (SENSORCAINE) Start: 11-30-2019 bupivacaine 7. 5 mg injection (SENSORCAINE) ciprofloxacin 500 mg oral tablet (5 sources) Quinolone Antimicrobial Start: 12-10-2023 End: 02-04-2024 take 1 tablet by mouth twice daily Ciprofloxacin Hcl 500 mg tablet Discontinued 500 mg PO TWICE A DAY December 10, 2023 12:00am February 04, 2024 10:24am Start: 11-12-2021 End: 11-19-2021 take 1 tablet by mouth twice daily ciprofloxacin HCl (CIPRO) 500 mg tablet Take 1 tablet by mouth twice daily for 7 days. 14 tablet 0 11/12/2021 11/19/2021 Active Comment on above: Take 1 tablet by dom twice daily for 7 days. clindamycin 300 mg oral capsule (12 sources) Lincosamide Antibacterial Start: 06-18-2018 End: 09-11-2022 Clindamycin Hcl 300 MG capsule Discontinued 1 NMA PO 4 TIMES DAILY June 18, 2018 1:00am September 11, 2022 3:22pm Start: 06-18-2018 End: 09-11-2022 take 1 capsule by mouth four times daily Clindamycin Hcl Discontinued 1 CAP PO 4 TIMES DAILY June 18, 2018 1:00am September 11, 2022 3:22pm Comment on above: Take [address] [facility] four times daily for 10 days. doxycycline hyclate 100 mg oral capsule (6 sources) Tetracycline-clas s Drug Start: 10-24-2023 End: 11-03-2023 take 1 capsule by mouth twice daily Doxycycline Hyclate 100 mg capsule Discontinued 100 mg PO TWICE A DAY 14 02October 24, 2023 12:00am November 02, 2023 12:00am November 03, 2023 12:05am Start: 09-23-2023 End: 12-04-2023 take 1 tablet by mouth twice daily Doxycycline Hyclate 100 mg tablet Discontinued 100 mg PO TWICE A DAY September 23, 2023 12:00am December 04, 2023 9:58am Take on empty stomach with a couple of crackers and small amount of water. Do not take with dairy products. ergocalciferol 1.25 mg oral capsule (11 sources) Provitamin D2 Compound Start: 06-18-2018 End: 09-11-2022 Ergocalciferol (Vitamin D2) (Vitamin D2) 50,000 UNIT capsule Discontinued 10343 U PO EVERY WEEK June 18, 2018 1:00am September 11, 2022 3:22pm estrogens, conjugated (assisted) 0.625 mg/ml vaginal cream (20 sources) Estrogen Start: 10-14-2022 conjugated est rogens (PREMARIN) vaginal cream Indications: Atrophic vaginitis Apply finger-tip amount as directed in handout ( no applicator needed) daily 30 g 4 02/08/2022 Active Start: 11-09-2021 conjugated est rogens (PREMARIN) vaginal cream Indications: Atrophic vaginitis Apply finger-tip amount as directed in handout ( no applicator needed) daily 30 g 4 11/09/2021 Active Start: 04-02-2021 End: 11-09-2021 PREMARIN vaginal cream Indic ations: Atrophic vaginitis APPLY PEA SIZED AMOUNT AT BEDTIME THREE TIMES A WEEK 30 g 1 04/02/2021 11/09/2021 Discontinued PREMARIN 0.625 M G/GM CREA a small amount to affected area three times a week conjugated estrogens [id number] Madison ZAPATA Comment on above: APPLY PEA SIZED AMOU NT AT BEDTIME THREE TIMES A WEEK Apply finger-tip tess unt as directed in handout ( no applicator needed) daily hydroCHLOROthiazide 12.5 mg / lisinopril 10 mg oral tablet (3 sources) Thiazide Diuretic, Angiotensin Converting Enzyme Inhibitor Start: 2023 End: 2023 Lisinopril-Hydrochlo rothiazide 10-12.5 mg tablet Discontinued 1 {tbl} PO DAILY September 18, 2023 12:00am February 04, 2024 10:25am Lactobacillus acidophilus (2 sources) PROBIOTIC (LACTOBACILLUS) CAPS 1 capsule once a day lactobacillus acidophilus [id number] Maureen Dumont RN melatonin 2 mg extended release oral tablet (1 source) take 1 tablet by mouth at bedtime melatonin tablet 2mg 2mg 1 tablet by mouth at bedtime melatonin tablet 2mg 2mg Madison ZAPATA meloxicam 15 mg oral tablet (11 sources) Nonsteroidal Anti-inflammatory Drug Start: 2018 End: 2022 take 1 tablet by mouth once daily Meloxicam 15 MG tablet Discontinued 15 mg PO DAILY June 18, 2018 1:00am September 11, 2022 3:22pm nitrofurantoin, macrocrystals 25 mg / nitrofurantoin, monohydrate 75 mg oral capsule (16 sources) Nitrofuran Antibacterial Start: 2024 End: 2024 take 1 capsule by mouth every twelve hours at mealtime Nitrofurantoin Monohyd/M-Cryst (Macrobid) 100 mg capsule Discontinued 100 mg PO Q12H 10 5 May 11, 2024 1:00am May 15, 2024 1:00am May 16, 2024 1:12am must administer with a meal/food Start: 12-04-2023 End: 12-11-2023 take 1 capsule by mouth every twelve hours at mealtime Nitrofurantoin Monohyd/M-Cryst 100 mg capsule Discontinued 1 NMA PO Q12H 14 7 December 04, 2023 12:00am December 10, 2023 12:00am December 11, 2023 12:04am administer with a meal/food; swallow whole; do not open, crush, dissolve , or chew Start: 07-05-2023 End: 07-12-2023 take 1 capsule by mouth every twelve hours at mealtime Nitrofurantoin Monohyd/M-Cryst (Macrobid) 100 mg capsule Discontinued 100 mg PO Q12H 14 July 05, 2023 1:00am July 11, 2023 12:00am July 12, 2023 12:16am must administer with a meal/food Start: 01-08-2023 End: 01-15-2023 take 1 capsule by mouth twice daily nitrofurantoin monohydrate and macrocrystal (MACROBID) 100 mg capsule Indications: Urinary frequency Take 1 capsule by mouth twice daily for 7 days. 14 capsule 0 01/08/2023 01/15/2023 Active Start: 05-07-2021 End: 05-17-2021 take 1 capsule by mouth twice daily nitrofurantoin monohydrate and macrocrystal (MACROBID) 100 mg capsule Take 1 capsule by mouth twice daily for 10 days. 20 capsule 0 05/07/2021 05/17/2021 Comment on above: Take [address] [facility] twice daily for 10 days. Take [address] [facility] twice daily for 7 days. perflutren lipid microspheres 1.3 mL in NaCl (PF) 0.9% 10 mL injection (DEFINITY) (20 sources) Start: 12-05-2020 End: 03-06-2022 perflutren lipid microspheres 1.3 mL in NaCl (PF) 0.9% 10 mL injection (DEFINITY) sodium chloride 0.111 meq/ml nasal spray (20 sources) Start: 04-23-2022 End: 12-31-2022 sodium chloride (SALINE MIST) 0.65 % nasal spray Use 1 [place] in the nose as needed for cold/allergy symptoms. 15 mL 0 04/23/2022 12/31/2022 Discontinued (Course of therapy completed) Start: 12-05-2020 End: 03-06-2022 sodium chloride 0.9 % (flush ) 10 mL (BD POSIFLUSH) Comment on above: Use 1 [place] in the n ose as needed for cold/allergy symptoms. [place] BP (3 sources) Start: End: [place] BP Discontinued PO September 18, 2023 12:00am February 04, 2024 10:26am vitamin B2 200mg 200mg (1 source) take 1 tablet by mouth twice daily vitamin B2 200mg 200mg 1 tablet by mouth twice a day vitamin B2 200mg 200mg Madison Lambert AT Problems Active Problems Problem Classification Problem Date Documented Da te Episodic/Chronic Administrative/social admission (3 sources) Persons encountering health services in other specified circumstances; Translations: [Other reasons for seeking consultation] 09-11-2022 Episodic Coronary atherosclerosis and other heart disease (2 sources) Atherosclerotic heart disease of [place] coronary artery without angina pectoris; Translations: [Atherosclerotic heart disease of [place] coronary artery without angina pectoris] Onset: Chronic Disorders of lipid metabolism (20 sources) Mixed hyperlipidemia; Translations: [Mixed hyperlipidemia] Onset: 6 03-22-2015 Chronic Diverticulosis and diverticulitis (2 sources) Diverticulitis of intestine; Translations: [Diverticulitis of intestine, part unspecified, without perforation or abscess without bleeding] 06-04-2023 Chronic Esophageal disorders (20 sources) Gastroesophageal reflux disease; Translations: [Gastro-esophageal reflux disease without esophagitis] Onset: 6 11-11-2005 Chronic Essential hypertension (20 sources) Hypertensive disorder; Translations: [Essential (primary) hypertension] Onset: 0 10-26-2009 Chronic Fracture of lower limb (8 sources) Fracture of ankle; Translations: [Other fracture of unspecified lower leg, initial encounter for closed fracture] Onset: 5 08-10-2024 Episodic Genitourinary symptoms and ill-defined conditions (4 sources) Dysuria; Translations: [Dysuria] Onset: 5 Episodic Headache; including migraine (20 sources) Migraine without aura; Translations: [Migraine without aura, not intractable, without status migrainosus] Onset: 6 05-11-2015 Chronic Immunizations and screening for infectious disease (1 source) Needs influenza immunization; Translations: [Encounter for immunization] Episodic Intestinal infection (1 source) Infection caused by Helicobacter pylori; Translations: [Other specified bacterial intestinal infections] Episodic Malaise and fatigue (14 sources) Weakness; Translations: [Fatigue] Onset: 0 Episodic Menopausal disorders (20 sources) Atrophic vaginitis; Translations: [Postmenopausal atrophic vaginitis] Onset: 7 08-09-2016 Chronic Noninfectious gastroenteritis (13 sources) Chronic diarrhea; Translations: [Noninfective gastroenteritis and [...] multiple joints; Translations: [Polyosteoarthritis, unspecified] Onset: 6 Resolved: 8 09-24-2015 Chronic Osteoporosis (20 sources) Osteoporosis; Translations: [Age-related osteoporosis without current pathological fracture] Onset: 6 04-23-2021 Chronic Other connective tissue disease (2 sources) Trigger finger, right middle finger; Translations: [Trigger finger (acquired)] Onset: 2 06-12-2021 Episodic Other connective tissue disease (2 sources) Palmar fascial fibromatosis [Dupuytren]; Translations: [Contracture of palmar fascia] Onset: 2 06-12-2021 Episodic Other connective tissue disease (12 sources) Foot pain; Translations: [Pain in left foot] 11-12-2022 Episodic Other connective tissue disease (2 sources) Swelling of left lower limb; Translations: [Other specified soft tissue disorders] 09-27-2024 Episodic Other connective tissue disease (1 source) Other specified soft tissue disorders; Translations: [Left leg swelling] Onset: 5 Episodic Other diseases of veins and lymphatics (2 sources) Venous stasis; Translations: [Other specified disorders of veins] 11-24-2023 Episodic Other diseases of veins and lymphatics (1 source) Other specified disorders of veins; Translations: [Venous stasis] Onset: 4 Episodic Other female genital disorders (1 source) Mass of vulva; Translations: [Other specified noninflammatory disorders of vulva and perineum] Episodic Other gastrointestinal disorders (20 sources) Irritable bowel syndrome; Translations: [Irritable bowel syndrome without diarrhea] Onset: 6 05-11-2015 Chronic Other gastrointestinal disorders (1 source) Functional disorder of intestine; Translations: [Functional intestinal disorder, unspecified] Episodic Other gastrointestinal disorders (7 sources) H/O: gastrointestinal disease; Translations: [Personal history of other diseases of the digestive system] 06-04-2023 Episodic Other gastrointestinal disorders (4 sources) Personal history of other diseases of the digestive system; Translations: [Personal history of other diseases of digestive system] 06-04-2023 Episodic Other infections; including parasitic (1 source) Disorder due to infection; Translations: [Unspecified infectious disease] Episodic Other lower respiratory disease (1 source) Wheezing; Translations: [Wheezing] Episodic Other lower respiratory disease (9 sources) Dyspnea on exertion; Translations: [Other forms of dyspnea] 06-30-2023 Episodic Other non-traumatic joint disorders (1 source) Shoulder pain; Translations: [Pain in left shoulder] Episodic Other non-traumatic joint disorders (10 sources) Pain in left shoulder; Translations: [Acute pain of left shoulder] 12-04-2021 Episodic Other non-traumatic joint disorders (2 sources) Swelling of ankle joint; Translations: [Effusion, left ankle] 08-10-2024 Episodic Other non-traumatic joint disorders (1 source) Acute ankle pain; Translations: [Pain in left ankle and joints of left foot] 09-06-2024 Episodic Other nutritional; endocrine; and metabolic disorders (13 sources) Obese class I; Translations: [Obesity, Class I, BMI 30-34.9] Onset: 4 02-16-2024 Chronic Other skin disorders (10 sources) Eruption; Translations: [Rash and other nonspecific skin eruption] 09-11-2022 Episodic Other skin disorders (3 sources) Rash and other nonspecific skin eruption; Translations: [Rash and other nonspecific skin eruption] 09-11-2022 Episodic Other upper respiratory infections (2 sources) Bacterial sinusitis; Translations: [Chronic sinusitis, unspecified] Chronic Other upper respiratory infections (6 sources) Acute maxillary sinusitis; Translations: [Acute maxillary sinusitis, unspecified] Episodic Residual codes; unclassified (20 sources) Obstructive sleep apnea syndrome; Translations: [Obstructive sleep apnea (adult) (pediatric)] Onset: 6 05-11-2015 Chronic Residual codes; unclassified (1 source) Procedure not done; Translations: [Procedure and treatment not carried out, unspecified reason] 11-12-2022 Episodic Spondylosis; intervertebral disc disorders; other back problems (16 sources) Cervical spondylosis without myelopathy; Translations: [Spondylosis without myelopathy or radiculopathy, cervical region] Onset: 2 Chronic Sprains and strains (8 sources) Sprain of foot; Translations: [Unspecified sprain of left foot, initial encounter] 11-12-2022 Episodic Unclassified (1 source) Obesity, Class I, BMI 30-34.9; Translations: [Obesity, Class I, BMI 30-34.9] Onset: 4 Unclassified (1 source) M54.50 - Low back pain, unspecified Unclassified (2 sources) Low back pain, unspecified; Translations: [Low back pain, unspecified] Onset: 5 Viral infection (14 sources) Viral disease; Translations: [Viral infection, unspecified] Episodic Past or Other Problems Problem Classification Problem Date Documented Da te Episodic/Chronic Abdominal pain (20 sources) Left lower quadrant pain; Translations: [Left lower quadrant pain] Onset: 10-11-2005 Resolved: 04-14-2013 06-04-2023 Episodic Fluid and electrolyte disorders (7 sources) Hypokalemia; Translations: [Hypokalemia] Onset: 11-24-2023 Episodic Other circulatory disease (20 sources) Choking sensation; Translations: [Other specified symptoms and signs involving the circulatory and respiratory systems] Onset: 03-16-2019 03-16-2019 Episodic Other gastrointestinal disorders (19 sources) Diarrhea; Translations: [Diarrhea, unspecified] Onset: 01-09-2011 Resolved: 04-14-2013 04-14-2013 Episodic Other lower respiratory disease (6 sources) Other forms of dyspnea; Translations: [Other respiratory abnormalities] Onset: 11-03-2023 06-30-2023 Episodic Other screening for suspected conditions (not mental disorders or infectious disease) (2 sources) Patient encounter status; Translations: [Encounter for screening for diabetes mellitus] Onset: 07-07-2024 Episodic Spondylosis; intervertebral disc disorders; other back problems (20 sources) Lumbar radiculopathy; Translations: [Radiculopathy, lumbar region] Onset: 12-07-2013 Resolved: 07-18-2020 12-07-2013 Episodic Unclassified (2 sources) Problem Urinary tract infections (20 sources) Recurrent urinary tract infection; Translations: [Urinary tract infection, site not specified] Onset: 08-12-2005 Resolved: 01-31-2016 Episodic Results Test Name Value Interpretation Reference Range Facility Inital Evaluation (1) - PT 09-30-2024 Inital Evaluation (1) - PT [facility] [address] [place] [address] [address] [place] [address] / REHABILITATION SERVICES INITIAL EVALUATION MR#: [id number] Acct: [id number] Name: KENDAL TAYLOR Rep #: [id number] : 1940 84 From: Riya Goodman DPT Referring Dr.: Dr. Santa Sethi MD Status: R EG RCR Insurance: MEDICARE PART A B AARP Patient's Visit Information Visit Information Visit Information: KENDAL TAYLOR is a 84 year old F referred to Physical Therapy by Dr. Santa Sethi MD with a diagnosis of Low Back Pain. Date of Evaluation: 09/30/24 Physical Therapist: Riya Goodman DPT Visit Plan Frequency: 2x /Week Duration: 4 Weeks Plan: Focus on core strength/stabilizatio n and postural endurance. HEP Given IE: TA Contraction, Postural Correction, Bridge, SLS Subjective Subjective: Patient reports that she fell August 04- she passed out and fractured her left foot- she went to the MD who put her in a boot and she was not allowed to be on it for 6 weeks and she thinks she may have also twisted her back. She reports the pain is across the whole low back about the belt line up to the kidney level. The pain does radiate down the left leg to the toes. The left leg has been numb for the last 2 years but no one can tell her why. It is also swollen but this is not new. Pain at the worst is 8/10 aggravated by standing. Best is 0/10 and eases are sitting down and resting. Pain is described as sharp and shooting and dull and achy depending on what she is doing. Sleep is disturbed and she can't find a comfortable position. SOB more now than before- no loss or change in bowel or bladder. Recent x-rays no MRI. She was more active prior to this but can't seem to get motivated to get moving again. Lives alone and performs all her own ADL's. PMHx/Meds: in chart Objective Objective: Posture: forward head, rounded shoulders- slight lean to the right- can correct with verbal cues but does not maintain Gait: antalgic- decreased stance on the left LE- poor heel/toe pattern- no AD Observation: in standing- weight shifted to the right LE HR/TR: able with UE A SLS: weight shift but unable to SLS without loss of balance ROM: WNL in all planes of the lumbar and LE- does report tightness or stiffness with all ROM in the lumbar spine Palpation: tender along paraspinals from L1-L5 Sensation: WNL to gross touch bilateral LE Strength: Core: poor, Left: Hip: flexion: 4-/5, abd: 4/5, Add: 4+/5, IR/ER:4-/5, Extn: 4-/5, Knee: 4+/5, Ankle: 5/5 Right: Hip: flexion: 4/5, abd: 4/5, Add: 4+/5, IR/ER:4-/5, Extn: 4/5, Knee: 4+/5, Ankle: 5/5 Flex: HS: mild, Gastroc: moderate Special Tests L/S Slump test left side: Negative L/S Slump test right side: Negative L/S Left Straight Leg Raise: Negative L/S Right Straight Leg Raise: Negative Balance/Special Test Scores Oswestry Low Back Score: 7 Goals Goal 1:: Patient will be I with HEP and progression Goal Time Frame: 4-6 Weeks Goal 2:: Patient will maintain proper posture t/o tx session Goal Time Frame: 4-6 Weeks Goal 3:: Patient will report ability to stand for >30 min without pain Goal Time Frame: 4-6 Weeks Goal 4:: Patient will report 80% improvement Goal Time Frame: 4-6 Weeks Rehabilitation Potential Physical Therapy Diagnosis: Patient presents with hypomobility- she has decreased LE and core strength/stabilizatio n and muscular endurance leading to poor posture and increased pain with ADL's Rehabilitation Potential: Good Anticipated Interventions Therapeutic Exercise to Include: Strength training, Endurance training, Balance training, Coordination, Agility training, Body mechanics, Postural training, Flexibilty training, Gait and locomotor training, Neuromotor development, Dynamic Lumbar Stabilization and Scapular Strength/Stabilizatio n For the Purpose of:: To improve muscle performance and motor function TENS: Yes Cryotherapy (ice pack, ice massage): Yes Thermo therapy (hot pack): Yes Ultrasound (thermal/non thermal): Yes Text: Thank you for the opportunity to evaluate your patient. For Medicare and Medicare HMO plans, please review the plan of care and approve it. It will need to be FAXED BACK to us at [phone] for Medicare purposes. For Medicare only, by signing this I certify the plan of care. Please let me know if there are questions or concerns regarding this plan of care. Physician Signature: Date : 09/30/24 1016 CC: Dr. Santa Sethi MD ELR Signed Normal [facility] Urine Cultureon 09-18-2024 URC Below infection level. Mixed Gram Pos Gram Neg Org [place] Count 1000-10,000 MIXC Mixed contaminants. Submit a new specimen if indicated. Normal [facility] Comment on above: Performed By: #### M 100.2200, L400.0001 #### [facility] [address] [place], [address] URC Mixed Gram Pos Gram Neg Org [place] Count 11,000-25,000 MIXC Mixed contaminants. Submit a new specimen if indicated. Normal [facility] Comment on above: Performed By: #### M 100.2200, L400.0001 #### [facility] [address] [place], [address] Anion gap in Serum or Plasma Ordered By: Santa Sethi on 09-16-2024 Anion gap [Moles/Vol] 14 mmol/L 5-15 [facility] BUN/creatinine ratioOrdered By: Santa Sethi on 09-16-2024 Urea nitrogen/Creatinine [Mass ratio] 31.2 mg/mg High 10-20 [facility] Basic Metabolic Profile (BMP )on 09-16-2024 BUN/CRE 31.2 RATIO High - [facility] Comment on above: Performed By: #### M 100.2199, L400.0001 #### [facility] [address] [place], [address] Calcium [Mass/Vol] 8.2 mg/dL Normal 7.6-11.0 [facility] Comment on above: Performed By: #### M 100.2200, L400.0001 #### [facility] [address] [place], [address] Chloride [Moles/Vol] 97 mmol/L Low 98-108 [facility] Comment on above: Performed By: #### M 100.2200, L400.0001 #### [facility] [address] [place], [address] CO2 [Moles/Vol] 25.4 mmol/L Normal 21.0-32.0 [facility] Comment on above: Performed By: #### M 100.2200, L400.0001 #### [facility] [address] [place], [address] Creatinine [Mass/Vol] 1.01 mg/dL Normal 0.70-1.20 [facility] Comment on above: Performed By: #### M 100.2200, L400.0001 #### [facility] [address] [place], [address] GAP 14 Normal 5-15 [facility] Comment on above: Performed By: #### M 100.2200, L400.0001 #### [facility] [address] [place], [address] GFR/1.73 sq M.predicted among non-blacks MDRD (S/P/Bld) [Vol rate/Area] 55 mL/min/{1.73_m2} Low >60 [facility] Comment on above: Result Comment: mL/m in/1.73m2 CKD-EPI Creatinine Equation (2020) Performed By: #### M 100.2200, L400.0001 #### [facility] [address] [place], [address] Glucose [Mass/Vol] 98 mg/dL Normal 70-99 [facility] Comment on above: Performed By: #### M 100.2200, L400.0001 #### [facility] [address] [place], [address] Potassium [Moles/Vol] 3.5 mmol/L Normal 3.3-5.1 [facility] Comment on above: Performed By: #### M 100.2200, L400.0001 #### [facility] [address] [place], [address] Sodium [Moles/Vol] 136 mmol/L Normal 133-145 [facility] Comment on above: Performed By: #### M 100.2200, L400.0001 #### [facility] [address] [place], [address] Urea nitrogen [Mass/Vol] 32 mg/dL High 4-19 [facility] Comment on above: Performed By: #### M 100.2200, L400.0001 #### [facility] [address] [place], [address] Bilirubin Test strip Ql (U)O rdered By: Santa Sethi on 09-16-2024 Bilirubin Ql (U) Negative Negative [facility] Carbon dioxide, total [Moles /volume] in Central venous bloodOrdered By: Santa Sethi on 09-16-2024 CO2 [Moles/Vol] 25.4 mmol/L 21.0-32.0 [facility] Chloride assayOrdered By: Sri Sethi on 09-16-2024 Chloride [Moles/Vol] 97 mmol/L Low 98-108 [facility] Glomerular filtration rate ( GFR) estimation/1.73 sq m using serum, plasma, or whole bOrdered By: Santa Sethi on 09-16-2024 GFR/1.73 sq M.predicted among non-blacks MDRD (S/P/Bld) [Vol rate/Area] 55 mL/min/{1.73_m2} Low >60 [facility] Comment on above: mL/min/1.73m2 CKD-EP I Creatinine Equation (2020) Ketones Test strip Ql (U)Ord ered By: Santa Sethi on 09-16-2024 Ketones Ql (U) Negative Negative [facility] Laboratory - Chemistry and C hemistry - challengeOrdered By: Santa Sethi on 09-16-2024 Bilirubin Ql (U) Negative [facility] Glucose Ql (U) Negative [facility] Ketones Ql (U) Negative [facility] pH (U) 6.0 [pH] [facility] Specific gravity (U) [Rel density] 1.010 [facility] Urobilinogen (U) [Mass/Vol] 0.1460673 mg/dL [facility] Laboratory - Hematology and Cell countsOrdered By: Santa Sethi on 09-16-2024 Hemoglobin Ql (U) Negative [facility] Laboratory - Specimen inform ationOrdered By: Santa Sethi on 09-16-2024 Clarity (U) Clear [facility] Color (U) YELLOW [facility] Laboratory - UrinalysisOrder ed By: Santa Sethi on 09-16-2024 Nitrite Ql (U) Negative [facility] Protein Ql (U) Negative [facility] MR/BMS.IMBon 09-16-2024 MR/BMS.IMB [facility] [address] [facility] [address] [place] [address] OFFICE VISIT Date of Service: 09/16/24 MR#: [id number] Acct: [id number] Name: KENDAL TAYLOR Rep #: [id number] : 1940 Provider: Dr. 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 Accompanied by: Self Is patient in pain?: Yes (Lower back pain) Pain scale (1-10): 3 Allergies albuterol Allergy (Verified 09/16/24 09:16) Unknown amoxicillin Allergy (Verified 09/16/24 09:16) Hives Penicillins Allergy (Verified 09/16/24 09:16) Hives sulfamethoxazole (From Bactrim) Allergy (Verified 09/16/24 09:16) Hives trimethoprim (From Bactrim) Allergy (Verified 09/16/24 09:16) Hives Medications ???Medication ???Instructions ???Recorded ???Confirmed ???Type cholecalciferol (vitamin D3) 125 125 mcg PO DAILY 08/28/22 09/16/24 History mcg (5,000 unit) capsule coq10 1 tab PO 1XD 08/28/22 09/16/24 His tory ketonazole shampoo 1 applic topical 1XD PRN dry skin 08/28/22 09/16/24 History magnesium 250 mg tablet See Rx Instructions PO DAILY 08/2809/16/24 History methocarbamol 750 mg tablet 750 mg PO .COMPLEX PRN pain 09/16/24 History riboflavin (vitamin B2) 100 mg 100 mg PO BID 08/28/22 09/16/24 Hi story tablet rizatriptan 10 mg tablet See Rx Instructions PO .COMPLEX 09/16/24 History triamcinolone acetonide 0.1 % 1 applic topical BID #30 grams 09/16/24 Rx topical cream diclofenac sodium 1 % topical gel 2 g topical BID PRN Osteoarthriti s 09/30/22 09/16/24 Rx #100 grams diphenoxylate-atropin e 2.5 1 tab PO BID PRN diarrhea #30 tabs 05/19/23 09/16/24 Rx mg-0.025 mg tablet potassium chloride 10 mEq 10 meq PO QDAY 02/04/24 09/16/24 H istory capsule,extended release meclizine 25 mg tablet 12.5 mg (1/2 x 25 mg) PO TID PRN 0 05/11/24 09/16/24 Rx dizziness #14 tabs omeprazole 20 mg capsule,delayed 20 mg PO DAILY #90 caps 05/26/24 0 09/16/24 Rx release colestipol 1 gram tablet 1 g PO TID #270 tabs 07/05/2408/27 Rx chlorthalidone 50 mg tablet 25 mg (1/2 x 50 mg) PO QDAY #90 Rx tabs clobetasol 0.05 % lotion 1 applic topical QDAY #118 mL 08/2709/16/24 Rx erenumab-aooe 140 mg/mL mg subcut 09/16/24 09/16/24 Histor y subcutaneous auto-injector (Aimovig Autoinjector) ezetimibe 10 mg tablet 10 mg PO QDAY #90 tabs 09/16/24 R x meclizine 12.5 mg tablet 12.5 mg PO BID-QID PRN motion 08/27 06/22 Rx sickness #30 tabs mometasone 0.1 % topical cream 1 applic topical QDAY #45 grams 09/16/24 Rx sucralfate 1 gram tablet 1 g PO BID #180 tabs 09/16/24 Rx Have you fallen in the past year?: Yes (08/04/2024; passed out, small fracture to L foot ) PFSH Medical History (Updated 09/16/24 @ 10:[address] Santa Sethi MD) Low back pain Wears hearing aid Wears glasses MRSA infection History of IBS Non-smoker CPAP (continuous positive airway pressure) dependence Sleep apnea History of echocardiogram Heart murmur Chronic GERD Osteoarthritis IBS (irritable bowel syndrome) Recurrent infections High cholesterol Hearing problem UTI (urinary tract infection) Degenerative disc disease GERD (gastroesophageal reflux disease) Hypertension Migraines Surgical History History of knee replacement ( 2013) History of bladder surgery ( 2003) FH: cholecystectomy Bunion ( 1988) H/O: hysterectomy ( 1980) Family History Mother Hypertension Arthritis Bowel disease Myocardial infarction, Onset Age: 70 Age related osteoporosis Father Diabetes Myocardial infarction, Onset Age: 50 Social History adopted: No household members: spouse housing: house number of children: 6 current occupational status: employed current occupation: [employer] current occupational exposures/hazards: No pets and animals: Yes pets and animals: cat(s) leisure activities: exercise, reading and other history of recent travel: No sexually active: No Smoking Status: Never smoker alcohol intake: never substance use type: does not use well-balanced diet: daily or most days caffeine: No eating out: rarely or never durin (more content not included)... Normal [facility] Magnesiumon 09-16-2024 Magnesium [Mass/Vol] 2.0 mg/dL Normal 1.5-2.2 [facility] Comment on above: Performed By: #### M 100.2200, L400.0001 #### [facility] [address] [place], [address] Magnesium measurement (mass/ volume)Ordered By: Santa Sethi on 09-16-2024 Magnesium (Unsp spec) [Mass/Vol] 2.0 mg/dL 1.5-2.2 [facility] Microscopic analysis of urin e for red blood cells (RBC)Ordered By: Santa Sethi on 09-16-2024 Microscopic analysis of urine for red blood cells (RBC) 0 SEEN /hpf 0-5 [facility] Mucus LM Ql (Urine sed)Order ed By: Santa Sethi on 09-16-2024 Mucus Ql (Urine sed) 0 SEEN /hpf [facility] Nitrite Test strip Ql (U)Ord ered By: Santa Sethi on 09-16-2024 Nitrite Ql (U) Negative Negative [facility] No Panel InformationOrdered By: Santa Sethi on 09-16-2024 Urine Leukocytes Negatve [facility] Urine Non-Hemolyzed Blood Negative [facility] Potassium measurement (mass/ volume)Ordered By: Santa Sethi on 09-16-2024 Potassium (Unsp spec) [Mass/Vol] 3.5 mmol/L 3.3-5.1 [facility] Protein Test strip Ql (U)Ord ered By: Santa Sethi on 09-16-2024 Protein Ql (U) 15 mg/dl High Negative [facility] Serum creatinine measurement (mass/volume)Ordered By: Santa Sethi on 09-16-2024 Creatinine [Mass/Vol] 1.01 mg/dL 0.70-1.20 [facility] Serum glucose measurement (m ass/volume)Ordered By: Santa Sethi on 09-16-2024 Glucose [Mass/Vol] 98 mg/dL 70-99 [facility] Serum or plasma calcium toma urement (mass/volume)Ordered By: Santa Sethi on 09-16-2024 Calcium [Mass/Vol] 8.2 mg/dL 7.6-11.0 [facility] Serum or plasma urea nitroge n measurement (mass/volume)Ordered By: Santa Sethi on 09-16-2024 Urea nitrogen [Mass/Vol] 32 mg/dL High 4-19 [facility] Sodium levelOrdered By: Ileana Sethi on 09-16-2024 Sodium [Moles/Vol] 136 mmol/L 133-145 [facility] Squamous epithelial cells de tection in urine sediment by light microscopyOrdered By: Santa Sethi on 09-16-2024 Epithelial cells.squamous LM Ql (Urine sed) 0-5 SEEN /hpf 5-10 [facility] Urinalysis, Completeon 09-16 EPI,SQUAMOUS 0-5 SEEN Normal 5-10 [facility] Comment on above: Order Comment: BREEZY CTOR TO SPECIFY Performed By: #### M 100.2200, L400.0001 #### [facility] [address] [place], [address] BACTERIA 0 SEEN Normal None Seen [facility] Comment on above: Order Comment: BREEZY CTOR TO SPECIFY Performed By: #### M 100.2200, L400.0001 #### [facility] [address] [place], [address] Mucus Ql (Urine sed) 0 SEEN Normal [facility] Comment on above: Order Comment: BREEZY CTOR TO SPECIFY Performed By: #### M 100.2200, L400.0001 #### [facility] [address] [place], [address] RBC 0 SEEN Normal 0-5 [facility] Comment on above: Order Comment: BREEZY CTOR TO SPECIFY Performed By: #### M 100.2200, L400.0001 #### [facility] [address] [place], [address] WBC 0 SEEN Normal 0-5 [facility] Comment on above: Order Comment: BREEZY CTOR TO SPECIFY Performed By: #### M 100.2200, L400.0001 #### [facility] [address] [place], [address] Urinalysis, Routine (Dipstic k)on 09-16-2024 BILIRUBIN URINE Negative Normal Negative [facility] Comment on above: Order Comment: Urine , Random Performed By: #### M 100.2200, L400.0001 #### [facility] [address] [place], [address] Clarity (U) Clear Normal Clear [facility] Comment on above: Order Comment: Urine , Random Performed By: #### M 100.2200, L400.0001 #### [facility] [address] [place], [address] Color (U) Yellow Normal Yellow [facility] Comment on above: Order Comment: Urine , Random Performed By: #### M 100.2200, L400.0001 #### [facility] [address] [place], [address] GLUCOSE, UR Normal Normal Normal [facility] Comment on above: Order Comment: Urine , Random Performed By: #### M 100.2200, L400.0001 #### [facility] [address] [place], [address] KETONE UR Negative Normal Negative [facility] Comment on above: Order Comment: Urine , Random Performed By: #### M 100.2200, L400.0001 #### [facility] [address] [place], [address] LEUK ESTERASE Negative Normal Negative [facility] Comment on above: Order Comment: Urine , Random Performed By: #### M 100.2200, L400.0001 #### [facility] [address] [place], [address] Nitrite Ql (U) Negative Normal Negative [facility] Comment on above: Order Comment: Urine , Random Performed By: #### M 100.2200, L400.0001 #### [facility] [address] [place], [address] OCCULT BLOOD-UR Negative Normal Negative [facility] Comment on above: Order Comment: Urine , Random Performed By: #### M 100.2200, L400.0001 #### [facility] [address] [place], [address] pH UR 6.5 Normal 5.0 - 8.0 [facility] Comment on above: Order Comment: Urine , Random Performed By: #### M 100.2200, L400.0001 #### [facility] [address] [place], [address] PROT DIPSTX 15 mg/dl Abnormal Negative [facility] Comment on above: Order Comment: Urine , Random Performed By: #### M 100.2200, L400.0001 #### [facility] [address] [place], [address] SP.GR. DIPSTX 1.005 Normal 1.002-1.030 [facility] Comment on above: Order Comment: Urine , Random Performed By: #### M 100.2200, L400.0001 #### [facility] [address] [place], [address] UROBILI Normal Normal Normal [facility] Comment on above: Order Comment: Urine , Random Performed By: #### M 100.2200, L400.0001 #### [facility] [address] [place], [address] Urine clarityOrdered By: Olinda Sethi on 09-16-2024 Clarity (U) Clear Clear [facility] Urine color determinationOrd ered By: Santa Sethi on 09-16-2024 Color (U) Yellow Yellow [facility] Urine cultureOrdered By: Olinda eSthi on 09-16-2024 Bacteria identified Cx Nom (U) Mixed Gram Pos & Gram Neg Org Abnormal [facility] Bacteria identified Cx Nom (U) Mixed Gram Pos & Gram Neg Org Abnormal [facility] Urine glucose detectionOrder ed By: Santa Sethi on 09-16-2024 Glucose Ql (U) Normal mg/dl Normal [facility] Urine leukocyte esterase det ection by dipstickOrdered By: Santa Sethi on 09-16-2024 Leukocyte esterase Test strip Ql (U) Negative Negative [facility] Urine pHOrdered By: Santa smart on 09-16-2024 pH (U) 6.5 [pH] 5.0 - 8.0 [facility] Urine sediment bacteria coun t by microscopy (number/high power field)Ordered By: Santa Sethi on 09-16-2024 Bacteria LM.HPF (Urine sed) [#/Area] 0 /[HPF] None Seen [facility] Urine specific gravity measu rementOrdered By: Santa Sethi on 09-16-2024 Specific gravity (U) [Rel density] 1.005 1.002-1.030 [facility] Urine urobilinogen measureme ntOrdered By: Santa Sethi on 09-16-2024 Urobilinogen Ql (U) Normal mg/dl Normal [facility] White blood cell countOrdere d By: Santa Sethi on 09-16-2024 White blood cell count 0 SEEN /hpf 0-5 [facility] CNPNon 09-15-2024 CNPN Telephone (PULMWS) KENDAL TAYLOR ([id number]) 1940 F Date Time Provider Department 09/15/24 JENNIFER LEDESMA PULCHANEL During your visit today, we recorded the following information about you: Linda Hirsch MA 09/15/2024 2:49 PM Signed Patient called in stating she has been having back pain at the kidney level x 3 weeks. AZO helps some, but PCP told her to contact urology office. She has appointment with PCP office tomorrow. Asking for appointment with urology. Please contact patient back at [phone]. Janine Bo MA 09/15/2024 3:31 PM Signed Next opening 10/12 here in [place]. We have 1 Urology provider once a week. Will have PCP evaluate and let us know if she needs something before that. ABRAM Uro 04/22/2023 Recurrent UTI and Atrophic Vaginitis. PHILIPPE Love Laurie, MA 09/16/2024 8:36 AM Signed Pt called and appt scheduled 10/12. She will call back if PCP thinks flank pain is more urgent. PHILIPPE Love Kimberly, LPN 09/17/2024 8:38 AM Signed Patient called. Verified name and date of . Patient did see PCP yesterday and PCP feels the pain is from when she fell in July and is muscular/skeletal. Urine was checked and was all clear and patient will be doing physical therapy. Flower Baez LPN Allergies As of Date: 09/15/2024 Noted Allergy Reaction CRISTINE INHIBITORS 05/13/2003 14 - Other: See Comments Comments: listril, zestril; makes headaches worse ADVAIR DISKUS (FLUTICASONE PROPIO*04/04/2011 5 - Intolerance Comments: sore mouth ALBUTEROL 04/04/2011 5 - Intolerance Comments: anxiety,jitters,tachy cardia AMITRIPTYLINE 02/23/2015 1 - Mental Status Change Comments: sedation with high doses only. Takes regularly AMOXICILLIN 05/13/2003 4 - Hives Comments: HIVES BACTRIM (SULFAMETHOXAZOLE-TRI METH*12/10/2010 2 - Rash 14 - Other: See [...] - Intolerance Comments: Dizziness at 500mg dose LISINOPRIL 11/24/2023 14 - Other: See Comments Comments: Dizziness, almost passed out PNEUMOVAX 23 (PNEUMOCOCCAL 23-SANTOSH*08/09/2005 14 - Other: See Comments Comments: had one in 1997,, had reaction; arm swelled up for about 8 months XQMVTOM-SMT-ABZ REDUCTASE INHIBIT*03/22/2015 14 - Other: See Comments Comments: pt declines-not work ULTRAM (TRAMADOL HCL) 02/21/2014 14 - Other: See Comments Comments: headache Date Reviewed: 09/06/2024 Reviewed by: Peter Patton MD - Fully Assessed Reason for Visit: back pain [Other] Prescriptions as of 09/17/2024 - erenumab-aooe 140 mg/mL subcutaneous auto-injector (AIMOVIG) Inject 1 mL subcutaneously once every month. Do not shake. - methocarbamol (ROBAXIN) 750 mg tablet Take 1 tablet by mouth two times a day as needed. - rizatriptan (MAXALT) 10 mg tablet Take 1 tablet (10 mg) by mouth as needed (at onset of headache. May repeat after 2 hours.). Do not exceed 30 mg per day. - potassium chloride ER (KLOR-CON M10) 10 mEq tablet Take 1 tablet by mouth two times a day. - chlorthalidone (HYGROTON) 50 mg tablet Take 1 tablet by mouth once daily. - ezetimibe (ZETIA) 10 mg tablet Take 1 tablet by mouth once daily. - estradiol (E2) emollient cream 0.2 mg/gram (CPD) Finger-Tip amount applied to indicated area at bedtime every other day - benzonatate (TESSALON PERLES) 100 mg capsule Take 2 capsules by mouth three times daily as needed. - spironolactone (ALDACTONE) 25 mg tablet Take 1 tablet by mouth once daily. - fluconazole (DIFLUCAN) 150 mg tablet Take 1 tablet by mouth Every 3 Days. - colestipol (COLESTID) 1 gram tablet Take 3 tablets by mouth once daily. - sucralfate (CARAFATE) 1 gram tablet Take 1 tablet by mouth twice daily. - ketoconazole (NIZORAL) 2 % shampoo Apply to scalp rash every other day until clear- Lather and rinse and then lather 2nd time and leave set on hair for 5 min and rinse again. - riboflavin, vitamin B2, (VITAMIN B2) 100 mg tab Take 200 mg by mouth twice daily. - MAGNESIUM ORAL Take 500 mg by mouth daily at bedtime. - coenzyme Q10 (COENZYME Q-10) 100 mg cap capsule Take 200 mg by mouth once daily. - HYDROcodone-acetamino phen (NORCO) 5-325 mg per tablet Take 1 tablet by mouth every 8 hours as needed for pain. - diphenoxylate-atropin e (LOMOTIL) 2.5-0.025 mg per tablet Take 1 tablet by mouth twice daily as needed for diarrhea for up to 90 days. - omeprazole (PRILOSEC) 40 mg capsule TAKE 1 CAPSULE DAILY - meclizine (ANTIVERT) 12.5 mg tab (more content not included)... Normal [facility] CNOVon 09-06-2024 CNOV Office Visit (ORTHWS ) KENDAL TAYLOR ([id number]) 1940 F Date Time Provider Department 09/06/24 11:00 AM PETER PATTON During your visit today, we recorded the following information about you: Peter Patton MD 09/27/2024 8:54 AM Signed Peter Patton MD Department of Orthopaedics Orthopaedics [address] [facility] [address] Dept: [phone] Dept September 06, 2024 CHIEF COMPLAINT: Follow Up and Fracture of the Left Ankle (4 weeks 5 days post fracture left ankle ) HPI: HPI Patient here for follow up Left ankle fracture. Stopped wearing cristine wrap over the weekend. Continuing to wear her tennis shoes. Taking no med's for the pain. New x-rays done today. She is doing better from the left ankle but she still has concerns about the swelling in her legs. She states that her wet press tender has said is got nothing to do with her heart and a kidney doctor told her it has not nothing to do with her kidneys. She has not had a vascular workup ASSESSMENT: M79.89 Left leg swelling (primary encounter diagnosis) M25.572 Acute left ankle pain PLAN: I did place a vascular medicine consultation just simply to follow-up with her lower extremity swelling. It may be a situation where she just continues to get her daily activities and and requires compression hose on the leg. OBJECTIVE: Ms. Kendal Taylor is a pleasant 84 year old in no apparent distress. Gen:There were no vitals taken for this visit. nl development, non obese, no deformities ENT: Normocephalic, normal hearing, moist mucosa CV: Pulses:DP/PT= 2+ and symmetric, capillary refill < 2 secs, no peripheral edema/varicosities Skin: no rash, bruising or lesions. Good turgor. Psych: cooperative and appropriate, alert and oriented x 3, good mood and affect. Musculoskeletal: Varus alignment of the left knee. Patient walks with a bit of an antalgic gait to the left. She has diffuse swelling throughout the lower extremity, symmetrical to the right leg, may be slightly worse on the left. She has some very minor tenderness palpation along the lateral ankle and malleolus. Imaging: IMPRESSION: There may be a healing fracture at the tip of the lateral malleolus. Remaining bones are intact with normal alignment. Mild tibiotalar osteoarthritis. Calcaneal enthesophytes. Ripsaw Matcher: TRANG Transcribe Date/Time: Sep 09 2024 8:31P Dictated by : JAYNA ROY MD This examination was interpreted and the report reviewed and electronically signed by: JAYNA ROY MD on Sep 09 2024 8:32PM EST Results-Findings * * *Final Report* * * DATE OF EXAM: Sep 06 2024 10:23AM [id number] - XR ANKLE 3V AP/LAT/OBL LT / PROCEDURE REASON: Closed avulsion fracture of left ankle, initial encounter * * * * Physician Interpretation * * * * EXAMINATION / TECHNIQUE: XR ANKLE 3V AP/LAT/OBL LT HISTORY: pt states left ankle follow up fell last month Closed avulsion fracture of left ankle, initial encounter COMPARISON: None. RESULT: See impression Supporting Subjective Information Below: Past Medical History: PAST MEDICAL HISTORY Diagnosis Date Aortic valve stenosis Atrial septal aneurysm Atrophic vaginitis 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 (HCC) 12/24/2010 Carpal tunnel syndrome, right 06/05/2015 Contact [...] joint replacement status 04/04/2014 Macular edema 08/17/2010 Migraines Mitral valve regurgitation Osteoarthritis OSTEOPOROSIS NOS 08/09/2005 Other forms of dyspnea Personal history of colonic polyps 11/11/2005 Colonoscopy - 11 October 2005 - Repeat in five years PURE HYPERCHOLESTEROLEM 08/09/2005 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- treated w/focal laser Right carpal tunnel syndrome 04/03/2015 Sleep apnea Snoring Trigger ring finger of right hand 06/05/2015 Trochanteric bursitis of left hip 07/19/2016 Unspecified migraine Unspecified sleep apnea 2004 hypoxic sleep apnea Urinary incontinence Venous stasis Wound infection after surgery 03/07/2014 Past Surgical History: PAST SURGICAL HISTORY Procedure Laterality Date ANTERIOR COLPORRAPHY RPR CYSTOCELE W/CYSTO 2003 Cystocele repair ARTHROSCOPY KNEE DIAGNOSTIC W/WO SYNOVIAL BX SPX 2004 Arthroscopy, knee right ARTHROSCOPY KNEE DIAGNOSTIC W/WO SYNOVIAL BX SPX 1994 Arthroscopy, knee left and right COLONOSCOPY FLX DX (more content not included)... Normal [facility] XR ANKLE 3V AP/LAT/OBL LTon 09-06-2024 XR ANKLE 3V AP/LAT/OBL LT * * *Final Report* * * DATE OF EXAM: Sep 06 2024 10:23AM [id number] - XR ANKLE 3V AP/LAT/OBL LT / PROCEDURE REASON: Closed avulsion fracture of left ankle, initial encounter * * * * Physician Interpretation * * * * EXAMINATION / TECHNIQUE: XR ANKLE 3V AP/LAT/OBL LT HISTORY: pt states left ankle follow up fell last month Closed avulsion fracture of left ankle, initial encounter COMPARISON: None. RESULT: See impression IMPRESSION: There may be a healing fracture at the tip of the lateral malleolus. Remaining bones are intact with normal alignment. Mild tibiotalar osteoarthritis. Calcaneal enthesophytes. Ripsaw Matcher: TRANG Transcribe Date/Time: Sep 09 2024 8:31P Dictated by : JAYNA ROY MD This examination was interpreted and the report reviewed and electronically signed by: JAYNA ROY MD on Sep 09 2024 8:32PM EST [id number] Normal [facility] CNOVon 08-13-2024 CNOV Office Visit (ORTHWS ) KENDAL TAYLOR ([id number]) 1940 F Date Time Provider Department 08/13/24 10:00 AM SHEILA INGRAM During your visit today, we recorded the following information about you: Linda Hirsch MA 08/13/2024 11:14 AM Signed AMB ROOMING INTAKE FLOWSHEET DATA Pain Pain Level: 8 Pain Location: Ankle-Left Description: Burning, Throbbing Duration Amount of Time: 1.5 Duration Units: Weeks Frequency: Continuous Intervention/Comfort measure: Splinting, Medication Patient here today for left ankle fracture. She states that she passed out on 08/04/2024 and fell. She was not seen at the ED until 08/10/2024. She has a fracture boot and using a walker. Taking Tylenol for pain, but it is not helping her pain. Sheila Ingram PA-C 08/13/2024 11:14 AM Signed Sheila Ingram PA-C Department of Orthopaedics Orthopaedics [address] [facility] [address] Dept: [phone] Dept August 13, 2024 CHIEF COMPLAINT: New and Fracture of the Left Ankle Right Ankle Fracture: - Sustained a fall in the bathroom on 08/04, resulting in a right ankle injury. - Initially believed it was a sprain; managed with wrapping and icing. - X-ray on 08/06 at [facility] revealed a small, non-displaced fracture of the distal fibula. - Reports burning pain and numbness in the toes. - Current boot is causing discomfort and rubbing, leading to redness. - Pain is not adequately managed with Tylenol; requests additional pain relief for nighttime use. - Lives alone in a two-story house; manages daily activities but requires assistance with groceries and other tasks. - Has a recliner and pillows for elevating the ankle; uses ice for swelling management. ASSESSMENT: S82.892A Closed avulsion fracture of left ankle, initial encounter (primary encounter diagnosis) PLAN: 1. Closed avulsion fracture of left ankle, initial encounter (S82.892A) - Non-displaced fracture at the distal fibula confirmed on X-ray from [facility]. - Significant swelling and tenderness noted; current CAM boot causing discomfort and erythema due to improper fit. - Demonstrated proper application of an CRISTINE wrap for support and advised wearing a well-fitted athletic shoe (Yates) with laces loosened to accommodate swelling. - Advised against the use of anti-inflammatory medications; recommended continuation of Tylenol for pain. - Prescribed [place] for nighttime pain management, cautioning against exceeding recommended Tylenol dosage. - Emphasized the importance of elevation with the ankle above heart level and regular icing to reduce swelling. - Follow-up appointment scheduled in one month for re-evaluation and repeat X-ray to assess healing progress. Will continue to monitor patient for Closed avulsion fracture of left ankle, initial encounter (primary encounter diagnosis), patient to schedule visit as per follow up discussed. Ms. Kendal Taylor was advised as to contrast therapies and/or to take analgesics/anti-infla mmatories as needed and all contraindications were reviewed. OBJECTIVE: Ms. Kendal Taylor is a pleasant 84 year old in no apparent distress. Gen:There were no vitals taken for this visit. nl development, obese, no deformities ENT: Normocephalic, normal hearing, moist mucosa CV: Pulses:DP/PT= 2+ and symmetric, capillary refill < 2 secs, no peripheral edema/varicosities Skin: no rash, bruising or lesions. Good turgor. Psych: cooperative and appropriate, alert and oriented x 3, good mood and affect. Musculoskeletal: Left Lower Extremity: Inspection- swelling Moderate, ecchymosis around the lateral heel / ankle and around the medical heel / ankle, abrasion along the lateral ankle presumably from cam boot. Lateral ankle-Positive pain on palpation of the anterior talofibular ligament, Positive pain on palpation of the posterior talofibular ligament, Positive pain on palpation of the calcaneal fibular ligament. Talar tilt/ inversion without excessive laxity. Anterior and posterior drawer with good endpoint. Medial ankle- Negative on palpation of the distal tibia and medial malleolus, Negative pain on palpation of the medial deltoid ligament complex. Eversion without excessive laxity. Foot- No pain on palpation of the the proximal fifth metatarsal or over the dorsum of the midfoot. Squeeze test and cross leg test Negative. Abbasi test Negative. Neurolomuscular- Sensory intact to light touch L1-S1. Dorsi flexion 5/5, plantar flexion 5/5, extensor hallucis extension: 5/5. Circulatory- Dorsalis pedis pulses palpable, posterior tibial pulses palpable. Imagin view left ankle x-rays [facility] August 10, 2024 Impression diffuse soft tissue swelling. A nondisplaced avulsion fracture of the lateral malleolus. Joint (more content not included)... Normal [facility] Ankle min 3 Viewson 08-11-19 Ankle min 3 Views [facility] Imaging Services [address] [place] [address] Ankle min 3 Views MR#: [id number] Acct: [id number] Name: KENDAL TAYLOR Rep #: [id number] : 1940 F 84 From: Vincenzo quesada MD PCP: Dr. Santa Sethi MD Status: PRE ER Study: Ankle min 3 Views Date of Exam: 08/10/24 Exam# [id number] Ordering Dr: Santa Sethi MD PROCEDURE: ANKLE MIN 3 VIEWS 08/10/2024 REASON FOR EXAM: INJURY/PAIM TECHNIQUE: 3 views of the left ankle COMPARISON: None FINDINGS: Bones: Nondisplaced avulsion fracture of the lateral malleolus. Joints: Joint space narrowing of the distal tibial talar joint. Soft tissues: Soft tissue swelling. Other: RAD/Ankle min 3 Views IMPRESSION: Diffuse soft tissue swelling. Nondisplaced fracture of the lateral malleolus. Reading Location: [facility] CC: Dr. Santa Sethi MD Ripsaw Matcher: Signed Normal [facility] Emergency Department Summary on 08-10-2024 Emergency Department Summary [facility] Medical Records Department [address] [place] [address] Emergency Department Summary 08/10/24 MR#: [id number] Acct: [id number] Name: KENDAL TAYLOR Rep #: [id number] : 1940 84 From: Ernesto Donohue MD PCP: Dr. Santa Sethi MD Status:REG ER Location: ED HPI History of Present Illness Chief Complaint: Lower Extremity Injury Narrative Narrative: 84-year-old female past medical history of remote bunion surgery of her left foot presents with injury to her left ankle that she sustained last Friday. This was approximately 6 days ago. She states that she fell in her kitchen. She thought she merely sprained her ankle and she states that the bruising on her foot has cleared, but her left lateral ankle remains swollen and she has pain with walking and weightbearing. She is taking Tylenol with mild relief. She presents with her granddaughter for evaluation of the injury to her left ankle that seems to be worsening. [facility] Medical History Wears hearing aid Wears glasses MRSA infection History of IBS Non-smoker CPAP (continuous positive airway pressure) dependence Sleep apnea History of echocardiogram Heart murmur Chronic GERD Osteoarthritis IBS (irritable bowel syndrome) Recurrent infections High cholesterol Hearing problem UTI (urinary tract infection) Degenerative disc disease GERD (gastroesophageal reflux disease) Hypertension Migraines Home Medications ???Medication ???Instructions ???Recorded ???Last Taken ???Type cholecalciferol (vitamin D3) 125 125 mcg PO DAILY 08/28/22 Unknown History mcg (5,000 unit) capsule coq10 1 tab PO 1XD 08/28/22 Unknown Hist ory fremanezumab-vfrm 225 mg/1.5 mL 225 mg subcut QMONTH 08/28/22 Unkn own History subcutaneous auto-injector (Ajovy) ketonazole shampoo 1 applic topical 1XD PRN dry skin 08/28/22 Unknown History magnesium 250 mg tablet See Rx Instructions PO DAILY 08/28 Unknown History methocarbamol 750 mg tablet 750 mg PO .COMPLEX PRN pain Unknown History riboflavin (vitamin B2) 100 mg 100 mg PO BID 08/28/22 Unknown His tory tablet rizatriptan 10 mg tablet See Rx Instructions PO .COMPLEX Unknown History triamcinolone acetonide 0.1 % 1 applic topical BID #30 grams Unknown Rx topical cream diclofenac sodium 1 % topical gel 2 g topical BID PRN Osteoarthriti s 09/30/22 Unknown Rx #100 grams diphenoxylate-atropin e 2.5 1 tab PO BID PRN diarrhea #30 tabs 05/19/23 Unknown Rx mg-0.025 mg tablet meclizine 12.5 mg tablet 12.5 mg PO BID-QID PRN motion 04/29 06/21 Unknown Rx sickness #30 tabs amlodipine 5 mg tablet 5 mg PO QDAY 02/04/24 Unknown Hist ory ezetimibe 10 mg tablet 10 mg PO QDAY 02/04/24 Unknown His tory potassium chloride 10 mEq 10 meq PO QDAY 02/04/24 Unknown Hi story capsule,extended release azithromycin 250 mg tablet See Rx Instructions PO .COMPLEX #6 05/11/24 Unknown Rx tabs meclizine 25 mg tablet 12.5 mg (1/2 x 25 mg) PO TID PRN 0 05/11/24 Unknown Rx dizziness #14 tabs omeprazole 20 mg capsule,delayed 20 mg PO DAILY #90 caps 05/26/24 U nknown Rx release sucralfate 1 gram tablet 1 g PO BID #180 tabs 05/26/24 Unkn own Rx chlorthalidone 50 mg tablet 25 mg PO QDAY 06/28/24 Unknown His tory colestipol 1 gram tablet 1 g PO TID #270 tabs 07/05/24 Unkn own Rx Allergy/AdvReac Type Severity Reaction Status Date / Time albuterol Allergy Unknown Verified 08/10/24 14:35 amoxicillin Allergy Hives Verified 08/10/24 14:35 Penicillins Allergy Hives Verified 08/10/24 14:35 sulfamethoxazole (From Allergy Hives Verified 08/10/24 14:35 Bactrim) trimethoprim (From Bactrim) Allergy Hives Verified 08/10/24 14:35 Family History Mother Hypertension Arthritis Bowel disease Myocardial infarction, Onset Age: 70 Age related osteoporosis Father Diabetes Myocardial infarction, Onset Age: 50 Surgical History History of knee replacement ( 2013) History of bladder surgery ( 2003) FH: cholecystectomy Bunion ( 1988) H/O: hysterectomy ( 1980) Social History adopted: No household members: spouse housing: house number of children: 6 current occupational status: employed current occupation: [employer] current occupational exposures/hazards: No pets and animals: Yes pets and animals: cat(s) leisure activities: exercise, reading and other history of recent travel: No sexually active: No Smoking Status: Never smoker alcohol intake: never substance use type: does not use well-balanced diet: daily or most days caffeine: No eating out: r (more content not included)... [facility] 07-19-[address] [facility] Telephone (NEUTWN) KENDAL TAYLOR ([id number]) 1940 F Date Time Provider Department 07/19/24 TERRANCE MCCAIN During your visit today, we recorded the following information about you: Elda Puckett 07/19/2024 1:24 PM Shanita Khanna is calling Terrance Mccain MD today with concern regarding Medication Problem--the Ajovy Auto Injector is too costly---is over #1,000.00 please advise if anything cheaper or if she can just skip it Patient has been identified by name and birthdate. Duration of symptoms: N/A Person calling: self Call patient at: at home [phone] (home) [phone] (cell) Was an appointment scheduled: No Closing statement: Symptom Call: Thank you for calling [facility], your call is very important. A nurse will call in approximately 2-4 hours during business hours. If this is an emergency, please contact 911. Elda Edmondson Pss Kimmie Martins, SHANNAN 07/19/2024 2:35 PM Signed Called patient regarding message below. Helped assist patient with the [facility] savings card. Patient voiced appreciation and will call back if her insurance does not accept Stephanie Palafox 07/19/2024 2:56 PM Signed Patient states [facility] does not accept saving cards. Patient is asking if it would be appropriate to send [facility] in [place] to see what out of pocket costs would be with savings card. Patient is requesting to speak with clinical. Kimmie Martins, SHANNAN 07/19/2024 3:41 PM Signed Spoke to pharmacy. The manufactures total cost is $2,202.02. Medicare requires patient to pay 50%. The pharmacy said that medicare did increase the swan this year. Kimmie Martins, SHANNAN 07/19/2024 4:03 PM Signed Spoke to patient and discussed options including Vyepti. Patient will call back to discuss what she would like to do. Yeny Cooper 07/19/2024 4:35 PM Signed Patient calling to state that Amovig will cost her $[address] Mccain's recommendation. Please assist. Rafaela Montano, SHANNAN 07/20/2024 9:18 AM Signed Spoke with patient. She would like to get the Aimovig, 3 month supply for $361. She states she is getting company and wants to be sure headaches are controlled. She states she has a follow up visit in September and will check out [facility] and where she could get Vyepti close to home before she sees you again. Rafaela Montano, SHANNAN 07/20/2024 9:18 AM Signed Addended by: RAFAELA MONTANO on: 07/20/2024 09:18 AM Modules accepted: Terrance Salomon MD 07/20/2024 10:12 AM Signed Addended by: TERRANCE MCCAIN on: 07/20/2024 10:12 AM Modules accepted: Orders Rafaela Montano RN 07/20/2024 3:45 PM Signed Received form on fax for PA of Aimovig, completed and faxed. Rafaela Montano RN 07/21/2024 9:09 AM Signed Received fax that Aimovig is approved through 07/20/2025 Rudy Allergies As of Date: 07/19/2024 Noted Allergy Reaction CRISTINE INHIBITORS 05/13/2003 14 - Other: See Comments Comments: listril, zestril; makes headaches worse ADVAIR DISKUS (FLUTICASONE PROPIO*04/04/2011 5 - Intolerance Comments: sore mouth ALBUTEROL 04/04/2011 5 - Intolerance Comments: anxiety,jitters,tachy cardia AMITRIPTYLINE 02/23/2015 1 - Mental Status Change Comments: sedation with high doses only. Takes regularly AMOXICILLIN 05/13/2003 4 - Hives Comments: HIVES BACTRIM (SULFAMETHOXAZOLE-TRI METH*12/10/2010 2 - Rash 14 - Other: See [...] - Intolerance Comments: Dizziness at 500mg dose LISINOPRIL 11/24/2023 14 - Other: See Comments Comments: Dizziness, almost passed out PNEUMOVAX 23 (PNEUMOCOCCAL 23-SANTOSH*08/09/2005 14 - Other: See Comments Comments: had one in 1997,, had reaction; arm swelled up for about 8 months GVQZHQF-HEE-WSR REDUCTASE INHIBIT*03/22/2015 14 - Other: See Comments Comments: pt declines-not work ULTRAM (TRAMADOL HCL) 02/21/2014 14 - Other: See Comments Comments: headache Date Reviewed: 02/16/2024 Reviewed by: Hamida Valdez MA - Fully Assessed Reason for Visit: Medication Problem [65] Primary Visit Diagnosis:Migraine without aura and without status migrainosus, not intractable [G43.009] Order(s):erenumab-aoo e 140 mg/mL subcutaneous auto-injector (AIMOVIG)Inject 1 mL subcutaneously once every month. Do not shake.Disp: 3 EachRfl: 1 Prescriptions as of 07/21/2024 - erenumab-aooe 140 mg/mL subcutaneous auto-injector (AIMOVIG) Inject 1 mL subcutaneously once every month. D (more content not included)... Normal [facility] BUN/creatinine ratioOrdered By: Santa Sethi on 06-22-2024 Urea nitrogen/Creatinine [Mass ratio] 31.0 mg/mg High 10-20 [facility] Comment on above: Previous reported re sult: 33.0 RATIOEdited by: VAMSI on 06/22/24:1836 AMENDED REPORT 06/22/241836 BUN/CRE previously reported as: 33.0 H RATIO Bilirubin, totalOrdered By: Santa Sethi on 06-22-2024 Bilirubin [Mass/Vol] 0.26 mg/dL 0.00-1.30 [facility] Comment on above: Previous reported re sult: 0.27 mg/dLEdited by: VAMSI on 06/22/24:1836 AMENDED REPORT 06/22/241836 T BILI previously reported as: 0.27 mg/dL Cholesterol in VLDL [Mass/Vo l]Ordered By: Santa Sethi on 06-22-2024 VLDL Cholesterol 28 mg/dL 5-40 [facility] Comprehensive Metabolic Prof ilon 06-22-2024 Albumin [Mass/Vol] 4.2 g/dL Normal 3.4-4.8 [facility] Comment on above: Result Comment: AMENDED REPORT 06/22/241836 ALB previously reported as: 4.1 g/dL Performed By: #### L 501.5200, L503.0106, L506.1001, L500.4050, L500.4100, L501.9520 #### [facility] [address] [place], [address] Albumin/Globulin [Mass ratio] 1.2 {ratio} Normal 0.9-2.4 [facility] Comment on above: Result Comment: AMENDED REPORT 06/22/241836 A/G previously reported as: 1.1 RATIO Performed By: #### L 501.5200, L503.0106, L506.1001, L500.4050, L500.4100, L501.9520 #### [facility] [address] [place], [address] ALK PHOS 107 U/L High 35-104 [facility] Comment on above: Result Comment: AMENDED REPORT 06/22/241836 ALK P previously reported as: 110 H U/L Performed By: #### L 501.5200, L503.0106, L506.1001, L500.4050, L500.4100, L501.9520 #### [facility] [address] [place], [address] ALT [Catalytic activity/Vol] 18 U/L Normal <=34 [facility] Comment on above: Performed By: #### L 501.5200, L503.0106, L506.1001, L500.4050, L500.4100, L501.9520 #### [facility] [address] [place], [address] Anion gap [Moles/Vol] 16 mmol/L High 5-15 [facility] Comment on above: Result Comment: AMENDED REPORT 06/22/241836 Anion Gap previously reported as: 15 Performed By: #### L 501.5200, L503.0106, L506.1001, L500.4050, L500.4100, L501.9520 #### [facility] [address] [place], [address] AST [Catalytic activity/Vol] 23 U/L Normal <=31 [facility] Comment on above: Result Comment: AMENDED REPORT 06/22/241836 AST previously reported as: 22 U/L Performed By: #### L 501.5200, L503.0106, L506.1001, L500.4050, L500.4100, L501.9520 #### [facility] [address] [place], [address] Bilirubin [Mass/Vol] 0.26 mg/dL Normal 0.00-1.30 [facility] Comment on above: Result Comment: AMENDED REPORT 06/22/241836 T BILI previously reported as: 0.27 mg/dL Performed By: #### L 501.5200, L503.0106, L506.1001, L500.4050, L500.4100, L501.9520 #### [facility] [address] [place], [address] BUN/CRE 31.0 RATIO High 10-20 [facility] Comment on above: Result Comment: AMENDED REPORT 06/22/241836 BUN/CRE previously reported as: 33.0 H RATIO Performed By: #### L 501.5200, L503.0106, L506.1001, L500.4050, L500.4100, L501.9520 #### [facility] [address] [place], [address] Calcium [Mass/Vol] 9.8 mg/dL Normal 7.6-11.0 [facility] Comment on above: Result Comment: AMENDED REPORT 06/22/241836 CA previously reported as: 10.0 mg/dL Performed By: #### L 501.5200, L503.0106, L506.1001, L500.4050, L500.4100, L501.9520 #### [facility] [address] [place], [address] CO2 [Moles/Vol] 24.0 mmol/L Normal 22.0-29.0 [facility] Comment on above: Result Comment: AMENDED REPORT 06/22/241836 CO2 previously reported as: 24.7 mmol/L Performed By: #### L 501.5200, L503.0106, L506.1001, L500.4050, L500.4100, L501.9520 #### [facility] [facility] [address] [place], [address] Creatinine [Mass/Vol] 1.0 mg/dL Normal 0.6-1.0 [facility] Comment on above: Performed By: #### L 501.5200, L503.0106, L506.1001, L500.4050, L500.4100, L501.9520 #### [facility] [address] [place], [address] Globulin (S) [Mass/Vol] 3.4 g/dL Normal 2.2-4.2 [facility] Comment on above: Result Comment: AMENDED REPORT 06/22/241836 GLOB previously reported as: 3.6 g/dL Performed By: #### L 501.5200, L503.0106, L506.1001, L500.4050, L500.4100, L501.9520 #### [facility] [address] [place], [address] Glucose [Mass/Vol] 100 mg/dL High 70-99 [facility] Comment on above: Result Comment: AMENDED REPORT 06/22/241836 GLU previously reported as: 101 H mg/dL Performed By: #### L 501.5200, L503.0106, L506.1001, L500.4050, L500.4100, L501.9520 #### [facility] [address] [place], [address] T PROT 7.6 g/dL Normal 5.9-8.4 [facility] Comment on above: Result Comment: AMENDED REPORT 06/22/241836 T PROT previously reported as: 7.8 g/dL Performed By: #### L 501.5200, L503.0106, L506.1001, L500.4050, L500.4100, L501.9520 #### [facility] [address] [place], [address] Urea nitrogen [Mass/Vol] 31 mg/dL High 4-19 [facility] Comment on above: Result Comment: AMENDED REPORT 06/22/241836 BUN previously reported as: 33 H mg/dL Performed By: #### L 501.5200, L503.0106, L506.1001, L500.4050, L500.4100, L501.9520 #### [facility] [address] [place], [address] ALB Normal 3.2-5.0 [facility] Comment on above: Result Comment: PUTT ING UNDER DIFFERENT REQ Performed By: #### M 100.2200, L400.0001 #### [facility] [address] [place], [address] ALK PHOS Normal 45-117 [facility] Comment on above: Result Comment: PUTT ING UNDER DIFFERENT REQ Performed By: #### M 100.2200, L400.0001 #### [facility] [address] [place], [address] ALT Normal 13-56 [facility] Comment on above: Result Comment: PUTT ING UNDER DIFFERENT REQ Performed By: #### M 100.2200, L400.0001 #### [facility] [address] [place], [address] AST Normal 15-37 [facility] Comment on above: Result Comment: PUTT ING UNDER DIFFERENT REQ Performed By: #### M 100.2200, L400.0001 #### [facility] [address] [place], [address] BUN Normal 7-18 [facility] Comment on above: Result Comment: PUTT ING UNDER DIFFERENT REQ Performed By: #### M 100.2200, L400.0001 #### [facility] [address] [place], [address] BUN/CRE Normal 10-20 [facility] Comment on above: Result Comment: PUTT ING UNDER DIFFERENT REQ Performed By: #### M 100.2200, L400.0001 #### [facility] [address] [place], [address] Calcium Normal 8.5-10.1 [facility] Comment on above: Result Comment: PUTT ING UNDER DIFFERENT REQ Performed By: #### M 100.2200, L400.0001 #### [facility] [address] [place], [address] CL Normal 98-107 [facility] Comment on above: Result Comment: PUTT ING UNDER DIFFERENT REQ Performed By: #### M 100.2200, L400.0001 #### [facility] [address] [place], [address] CO2 Normal 21.0-32.0 [facility] Comment on above: Result Comment: PUTT ING UNDER DIFFERENT REQ Performed By: #### M 100.2200, L400.0001 #### [facility] [address] [place], [address] CREAT,SERUM Normal 0.55-1.02 [facility] Comment on above: Result Comment: PUTT ING UNDER DIFFERENT REQ Performed By: #### M 100.2200, L400.0001 #### [facility] [address] [place], [address] eGFR Normal >60 [facility] Comment on above: Result Comment: PUTT ING UNDER DIFFERENT REQ Performed By: #### M 100.2200, L400.0001 #### [facility] [address] [place], [address] EST GFR - AA Normal >60 [facility] Comment on above: Result Comment: PUTT ING UNDER DIFFERENT REQ Performed By: #### M 100.2200, L400.0001 #### [facility] [address] [place], [address] GAP Normal 5-15 [facility] Comment on above: Result Comment: PUTT ING UNDER DIFFERENT REQ Performed By: #### M 100.2200, L400.0001 #### [facility] [address] [place], [address] GLU Normal 74-106 [facility] Comment on above: Result Comment: PUTT ING UNDER DIFFERENT REQ Performed By: #### M 100.2200, L400.0001 #### [facility] [address] [place], [address] Potassium Normal 3.5-5.1 [facility] Comment on above: Result Comment: PUTT ING UNDER DIFFERENT REQ Performed By: #### M 100.2200, L400.0001 #### [facility] [address] [place], [address] T BILI Normal 0.20-1.00 [facility] Comment on above: Result Comment: PUTT ING UNDER DIFFERENT REQ Performed By: #### M 100.2200, L400.0001 #### [facility] [address] [place], [address] T PROT Normal 6.4-8.2 [facility] Comment on above: Result Comment: PUTT ING UNDER DIFFERENT REQ Performed By: #### M 100.2200, L400.0001 #### [facility] [address] [place], [address] Comprehensive Metabolic Profil Normal 136-145 [facility] Comment on above: Result Comment: PUTT ING UNDER DIFFERENT REQ Performed By: #### M 100.2200, L400.0001 #### [facility] [address] [place], [address] Creatinine [Moles/Vol]Ordere d By: Santa Sethi on 06-22-2024 Creatinine [Mass/Vol] 1.0 mg/dL 0.6-1.0 [facility] GFR/1.73 sq M.predicted georges g non-blacks MDRD (S/P/Bld) [Vol rate/Area]Ordered By: Santa Sethi on 06-22-2024 Estimated GFR (MDRD) Non-Af Amer 57 Low >60 [facility] Comment on above: mL/min/1.73m2 CKD-EP I Creatinine Equation (2020) Glomerular filtration rate ( GFR) estimation/1.73 sq m using serum, plasma, or whole bOrdered By: Santa Sethi on 06-22-2024 GFR/1.73 sq M.predicted among non-blacks MDRD (S/P/Bld) [Vol rate/Area] 57 mL/min/{1.73_m2} Low >60 [facility] Comment on above: mL/min/1.73m2 CKD-EP I Creatinine Equation (2020) L503.0106on 06-22-2024 Cobalamin (Vitamin B12) [Mass/Vol] 641 pg/mL Normal 180-914 [facility] Comment on above: Performed By: #### L 501.5200, L503.0106, L506.1001, L500.4050, L500.4100, L501.9520 #### [facility] [address] [place], [address] L506.1001on 06-22-2024 Vitamin D 25-OH 44.5 ng/mL Normal 30-100 [facility] Comment on above: Result Comment: Isaura min D Status Deficiency: <20 ng/mL (50nmol/L) Insufficiency: 20-30 ng/mL (50-75 nmol/L) Sufficiency: 30-100 ng/mL (75-250 nmol/L) Toxicity: >100 ng/mL (>250 nmol/L) Performed By: #### L 501.5200, L503.0106, L506.1001, L500.4050, L500.4100, L501.9520 #### [facility] [address] [place], [address] Laboratory - Chemistry and C hemistry - challengeOrdered By: Santa Sethi on 06-22-2024 AST [Catalytic activity/Vol] 23 U/L <32 [facility] Comment on above: Previous reported re sult: 22 U/LEdited by: VAMSI on 06/22/24:1837 AMENDED REPORT 06/22/241836 AST previously reported as: 22 U/L Cobalamin (Vitamin B12) [Mass/Vol] 641 pg/mL 180-914 [facility] Lipid Profileon 06-22-2024 Cholesterol in LDL [Mass/Vol] 131 mg/dL High 0-130 [facility] Comment on above: Performed By: #### L 501.5200, L503.0106, L506.1001, L500.4050, L500.4100, L501.9520 #### [facility] [address] [place], [address] HDL Normal [facility] Comment on above: Result Comment: PUTT ING UNDER DIFFERENT REQ The drugs N-Acetylcysteine and Metamizole may falsely depress this assay. Performed By: #### M 100.2200, L400.0001 #### [facility] [address] [place], [address] TRIG Normal [facility] Comment on above: Result Comment: PUTT ING UNDER DIFFERENT REQ The drugs N-Acetylcysteine and Metamizole may falsely depress this assay. Performed By: #### M 100.2200, L400.0001 #### [facility] [address] [place], [address] CHOL Normal 200 [facility] Comment on above: Result Comment: PUTT ING UNDER DIFFERENT REQ Performed By: #### M 100.2200, L400.0001 #### [facility] [address] [place], [address] LDL Normal 0-130 [facility] Comment on above: Result Comment: PUTT ING UNDER DIFFERENT REQ Performed By: #### M 100.2200, L400.0001 #### [facility] [address] [place], [address] VLDL Normal 5-40 [facility] Comment on above: Result Comment: PUTT ING UNDER DIFFERENT REQ Performed By: #### M 100.2200, L400.0001 #### [facility] [address] [place], [address] Low density lipoprotein (LDL ) cholesterol measurementOrdered By: Santa Sethi on 06-22-2024 Cholesterol in LDL [Mass/Vol] 131 mg/dL High 0-130 [facility] Magnesiumon 06-22-2024 Magnesium [Mass/Vol] 1.9 mg/dL Normal 1.5-2.2 [facility] Comment on above: Performed By: #### L 501.5200, L503.0106, L506.1001, L500.4050, L500.4100, L501.9520 #### [facility] [address] [place], [address] Magnesium (Unsp spec) [Mass/ Vol]Ordered By: Santa Sethi on 06-22-2024 Magnesium [Mass/Vol] 1.9 mg/dL 1.5-2.2 [facility] Magnesium measurement (mass/ volume)Ordered By: Santa Sethi on 06-22-2024 Magnesium (Unsp spec) [Mass/Vol] 1.9 mg/dL 1.5-2.2 [facility] No Panel InformationOrdered By: Santa Sethi on 06-22-2024 Vitamin D 25-Hydroxy 44.5 ng/mL 30-100 [facility] Comment on above: Vitamin D StatusDefi ciency: <20 ng/mL (50nmol/L)Insufficiency: 20-30 ng/mL (50-75 nmol/L)Sufficiency: 30-100 ng/mL (75-250 nmol/L)Toxicity: >100 ng/mL (>250 nmol/L) Serum globulin measurementOr dered By: Santa Sethi on 06-22-2024 Globulin (S) [Mass/Vol] 3.4 g/dL 2.2-4.2 [facility] Comment on above: Previous reported re sult: 3.6 g/dLEdited by: VAMSI on 06/22/24:1836 AMENDED REPORT 06/22/241836 GLOB previously reported as: 3.6 g/dL Serum glucose measurement (m ass/volume)Ordered By: Santa Sethi on 06-22-2024 Glucose [Mass/Vol] 100 mg/dL High 70-99 [facility] Comment on above: Previous reported re sult: 101 mg/dLEdited by: VAMSI on 06/22/24:1836 AMENDED REPORT 06/22/241836 GLU previously reported as: 101 H mg/dL Serum or plasma alanine carl otransferase (ALT) measurementOrdered By: Santa Sethi on 06-22-2024 ALT [Catalytic activity/Vol] 18 U/L <35 [facility] Serum or plasma albumin toma urement (mass/volume)Ordered By: Santa Sethi on 06-22-2024 Albumin [Mass/Vol] 4.2 g/dL 3.4-4.8 [facility] Comment on above: Previous reported re sult: 4.1 g/dLEdited by: VAMSI on 06/22/24:1836 AMENDED REPORT 06/22/241836 ALB previously reported as: 4.1 g/dL Serum or plasma albumin/glob ulin mass ratioOrdered By: Santa Sethi on 06-22-2024 Albumin/Globulin [Mass ratio] 1.2 {ratio} 0.9-2.4 [facility] Comment on above: Previous reported re sult: 1.1 RATIOEdited by: VAMSI on 06/22/24:1836 AMENDED REPORT 06/22/241836 A/G previously reported as: 1.1 RATIO Serum or plasma alkaline silvia sphatase measurementOrdered By: Santa Sethi on 06-22-2024 ALP [Catalytic activity/Vol] 107 U/L High 35-104 [facility] Comment on above: Previous reported re sult: 110 U/LEdited by: VAMSI on 06/22/24:1836 AMENDED REPORT 06/22/241836 ALK P previously reported as: 110 H U/L Serum or plasma anion gap de termination (moles/volume)Ordered By: Santa Sethi on 06-22-2024 Anion gap [Moles/Vol] 16 mmol/L High 5-15 [facility] Comment on above: Previous reported re sult: 15 Edited by: VAMSI on 06/22/24:1836 AMENDED REPORT 06/22/241836 Anion Gap previously reported as: 15 Serum or plasma calcium toma urement (mass/volume)Ordered By: Santa Sethi on 06-22-2024 Calcium [Mass/Vol] 9.8 mg/dL 7.6-11.0 [facility] Comment on above: Previous reported re sult: 10.0 mg/dLEdited by: VAMSI on 06/22/24:1836 AMENDED REPORT 06/22/241836 CA previously reported as: 10.0 mg/dL Serum or plasma cholesterol in HDL measurement (mass/volume)Ordered By: Santa Sethi on 06-22-2024 Cholesterol in HDL [Mass/Vol] 66 mg/dL >40 [facility] Comment on above: National Cholesterol Education Program (NCEP) guidelines:<40 mg/dL: Low HDL-cholesterol (major risk factor for CHD)>= 60 mg/dL: High HDL-cholesterol (negative risk factor for CHD)HDL-cholesterol is affected by a number of factors, e.g. smoking, exercise, hormones, sex and age. Serum or plasma cholesterol in VLDL measurement (mass/volume)Ordered By: Santa Sethi on 06-22-2024 Cholesterol in VLDL [Mass/Vol] 28 mg/dL 5-40 [facility] Serum or plasma cholesterol measurement (mass/volume)Ordered By: Santa Sethi on 06-22-2024 Cholesterol [Mass/Vol] 225 mg/dL High <201 [facility] Comment on above: Cholesterol level, D esirable <200 mg/dLBorderline high cholesterol 200-239 mg/dLHigh cholesterol >=240 mg/dLRecommendations of the NCEP Adult Treatment Panel for the following risk-cutoff thresholds for the [place] population. Serum or plasma creatinine m easurement (moles/volume)Ordered By: Santa Sethi on 06-22-2024 Creatinine [Moles/Vol] 1.0 mg/dL 0.6-1.0 [facility] Serum or plasma potassium me asurementOrdered By: Santa Sethi on 06-22-2024 Potassium [Moles/Vol] 3.5 mmol/L 3.3-5.1 [facility] Serum or plasma sodium measu rement (moles/volume)Ordered By: Santa Sethi on 06-22-2024 Sodium [Moles/Vol] 138 mmol/L 133-145 [facility] Serum or plasma urea nitroge n measurement (mass/volume)Ordered By: Santa Sethi on 06-22-2024 Urea nitrogen [Mass/Vol] 31 mg/dL High 4-19 [facility] Comment on above: Previous reported re sult: 33 mg/dLEdited by: VAMSI on 06/22/24:1836 AMENDED REPORT 06/22/241836 BUN previously reported as: 33 H mg/dL TSH DL <= 0.005 mIU/L QnOrde red By: Santa Sethi on 06-22-2024 Thyroid Stimulating Hormone (TSH) 2.050 uIU/mL 0.300-4.200 [facility] TSH Qn 2.050 uIU/mL 0.300-4.200 [facility] Thyroid Stim Hormone (TSH)on 06-22-2024 TSH 2.050 uIU/mL Normal 0.300-4.200 [facility] Comment on above: Performed By: #### L 501.5200, L503.0106, L506.1001, L500.4050, L500.4100, L501.9520 #### [facility] [address] [place], [address] Total proteinOrdered By: Olinda Sethi on 06-22-2024 Protein [Mass/Vol] 7.6 g/dL 5.9-8.[address] [facility] [facility] Comment on above: Previous reported re sult: 7.8 g/dLEdited by: VAMSI on 06/22/24:1836 AMENDED REPORT 06/22/241836 T PROT previously reported as: 7.8 g/dL Triglycerides measurementOrd ered By: Santa Sethi on 06-22-2024 Triglyceride [Mass/Vol] 138 mg/dL <199 [facility] Comment on above: The drugs N-Acetylcy steine and Metamizole may falsely depress this assay. Normal range: <150 mg/dLBorderline High: 150-199 mg/dLHigh: 200-499 mg/dLVery High: >500 mg/dL CNPNon 06-09-2024 CNPN Telephone (NEUTWN) KENDAL TAYLOR ([id number]) 1940 F Date Time Provider Department 06/09/24 TERRANCE MCCAIN During your visit today, we recorded the following information about you: Shaylee Sanchez 06/09/2024 9:57 AM Shanita Khanna is calling Terrance Mccain MD today to request Insurance Authorization (Needed for aimovig) please call [id number]. Patient has been identified by name and birthdate. Duration of symptoms: N/A Person calling: self Call patient at: on cell [phone] (home) [phone] (cell) Was an appointment scheduled: No Closing statement: Prior Authorization Calls: Thank you for calling [facility], your call will be returned within the next 24 hours or next business day. Rafaela Preez, SHANNAN 06/09/2024 10:14 AM Signed PA requested through [facility] Rafaela Montano RN 06/09/2024 4:28 PM Signed Pa questions answered and sent. Rafaela Montano RN 06/10/2024 4:43 PM Signed Maliha approved Allergies As of Date: 06/09/2024 Noted Allergy Reaction CRISTINE INHIBITORS 05/13/2003 14 - Other: See Comments Comments: listril, zestril; makes headaches worse ADVAIR DISKUS (FLUTICASONE PROPIO*04/04/2011 5 - Intolerance Comments: sore mouth ALBUTEROL 04/04/2011 5 - Intolerance Comments: anxiety,jitters,tachy cardia AMITRIPTYLINE 02/23/2015 1 - Mental Status Change Comments: sedation with high doses only. Takes regularly AMOXICILLIN 05/13/2003 4 - Hives Comments: HIVES BACTRIM (SULFAMETHOXAZOLE-TRI METH*12/10/2010 2 - Rash 14 - Other: See [...] - Intolerance Comments: Dizziness at 500mg dose LISINOPRIL 11/24/2023 14 - Other: See Comments Comments: Dizziness, almost passed out PNEUMOVAX 23 (PNEUMOCOCCAL 23-SANTOSH*08/09/2005 14 - Other: See Comments Comments: had one in 1997,, had reaction; arm swelled up for about 8 months IKOMSOF-EQF-QWI REDUCTASE INHIBIT*03/22/2015 14 - Other: See Comments Comments: pt declines-not work ULTRAM (TRAMADOL HCL) 02/21/2014 14 - Other: See Comments Comments: headache Date Reviewed: 02/16/2024 Reviewed by: Hamida Valdez MA - Fully Assessed Reason for Visit: Insurance Authorization [1979] Cmt: Needed for aimovig Prescriptions as of 06/10/2024 - methocarbamol (ROBAXIN) 750 mg tablet Take 1 tablet by mouth two times a day as needed. - rizatriptan (MAXALT) 10 mg tablet Take 1 tablet (10 mg) by mouth as needed (at onset of headache. May repeat after 2 hours.). Do not exceed 30 mg per day. - potassium chloride ER (KLOR-CON M10) 10 mEq tablet Take 1 tablet by mouth two times a day. - chlorthalidone (HYGROTON) 50 mg tablet Take 1 tablet by mouth once daily. - ezetimibe (ZETIA) 10 mg tablet Take 1 tablet by mouth once daily. - fremanezumab-vfrm (Contentment LtdOVY AUTOINJECTOR) 225 mg/1.5 mL auto-injector Inject 1.5 mL subcutaneously once every month. Do not shake. - estradiol (E2) emollient cream 0.2 mg/gram (CPD) Finger-Tip amount applied to indicated area at bedtime every other day - benzonatate (TESSALON PERLES) 100 mg capsule Take 2 capsules by mouth three times daily as needed. - spironolactone (ALDACTONE) 25 mg tablet Take 1 tablet by mouth once daily. - fluconazole (DIFLUCAN) 150 mg tablet Take 1 tablet by mouth Every 3 Days. - colestipol (COLESTID) 1 gram tablet Take 3 tablets by mouth once daily. - sucralfate (CARAFATE) 1 gram tablet Take 1 tablet by mouth twice daily. - ketoconazole (NIZORAL) 2 % shampoo Apply to scalp rash every other day until clear- Lather and rinse and then lather 2nd time and leave set on hair for 5 min and rinse again. - riboflavin, vitamin B2, (VITAMIN B2) 100 mg tab Take 200 mg by mouth twice daily. - MAGNESIUM ORAL Take 500 mg by mouth daily at bedtime. - coenzyme Q10 (COENZYME Q-10) 100 mg cap capsule Take 200 mg by mouth once daily. - HYDROcodone-acetamino phen (NORCO) 5-325 mg per tablet Take 1 tablet by mouth every 8 hours as needed for pain. - diphenoxylate-atropin e (LOMOTIL) 2.5-0.025 mg per tablet Take 1 tablet by mouth twice daily as needed for diarrhea for up to 90 days. - omeprazole (PRILOSEC) 40 mg capsule TAKE 1 CAPSULE DAILY - meclizine (ANTIVERT) 12.5 mg tab Take 1 tablet by mouth three times daily as needed (dizziness). - acetaminophen (TYLENOL ORAL) Take by mouth as needed. - cholecalciferol, vitamin D3, (VITAMIN D3 ORAL) Take 5,000 Units by mouth once daily. Problem List As Of Date 06/09/2024 Noted Resolved (more content not included)... Normal [facility] Urine Cultureon 05-26-2024 URC Mixed Gram Positive Organisms [place] Count 1000-10,000 MIXC Mixed contaminants. Submit a new specimen if indicated. Normal [facility] Comment on above: Performed By: #### M 100.2200, L400.0001 #### [facility] [address] [place], [place], [id number] Bilirubin Test strip Ql (U)O rdered By: Santa Sethi on 05-24-2024 Bilirubin Ql (U) Negative Negative [facility] Epithelial cells.squamous LM Ql (Urine sed)Ordered By: Santa Sethi on 05-24-2024 Epithelial cells.squamous LM.HPF (Urine sed) [#/Area] 0 /[HPF] 5-10 [facility] Glucose Ql (U)Ordered By: Sri Sethi on 05-24-2024 Urine Glucose (UA) Normal mg/dl Normal [facility] Ketones Test strip Ql (U)Ord ered By: Santa Sethi on 05-24-2024 Ketones Ql (U) Negative Negative [facility] Microscopic analysis of urin e for red blood cells (RBC)Ordered By: Santa Sethi on 05-24-2024 Urine RBC 0-5 SEEN /hpf 0-5 [facility] Mucus LM Ql (Urine sed)Order ed By: Santa Sethi on 05-24-2024 Mucus Ql (Urine sed) 0 SEEN /hpf [facility] Nitrite Test strip Ql (U)Ord ered By: Santa Sethi on 05-24-2024 Nitrite Ql (U) Negative Negative [facility] Protein Test strip Ql (U)Ord ered By: Santa Sethi on 05-24-2024 Protein Ql (U) Negative Negative [facility] Urinalysis, Completeon 05-24 EPI,SQUAMOUS 0-5 SEEN Normal 5-10 [facility] Comment on above: Order Comment: BREEZY CTOR TO SPECIFY Performed By: #### M 100.2200, L400.0001 #### [facility] [address] [place], [address] RBC 0-5 SEEN Normal 0-5 [facility] Comment on above: Order Comment: BREEZY CTOR TO SPECIFY Performed By: #### M 100.2200, L400.0001 #### [facility] [address] [place], [address] BACTERIA 0 SEEN Normal None Seen [facility] Comment on above: Order Comment: BREEZY CTOR TO SPECIFY Performed By: #### M 100.2200, L400.0001 #### [facility] [address] [place], [address] Mucus Ql (Urine sed) 0 SEEN Normal [facility] Comment on above: Order Comment: BREEZY CTOR TO SPECIFY Performed By: #### M 100.2200, L400.0001 #### [facility] [address] [place], [address] WBC 0 SEEN Normal 0-5 [facility] Comment on above: Order Comment: BREEZY CTOR TO SPECIFY Performed By: #### M 100.2200, L400.0001 #### [facility] [address] [place], [address] Urine blood detectionOrdered By: Santa Sethi on 05-24-2024 Urine Occult Blood Negative Negative [facility] Urine clarityOrdered By: Olinda Sethi on 05-24-2024 Clarity (U) Clear Clear [facility] Urine color determinationOrd ered By: Santa Sethi on 05-24-2024 Color (U) Yellow Yellow [facility] Urine cultureOrdered By: Olinda Sethi on 05-24-2024 Bacteria identified Cx Nom (U) Positive Abnormal [facility] Urine leukocyte esterase det ection by dipstickOrdered By: Santa Sethi on 05-24-2024 Leukocyte esterase Test strip Ql (U) Negative Negative [facility] Urine pHOrdered By: Santa smart on 05-24-2024 pH (U) 6.0 [pH] 5.0 - 8.0 [facility] Urine sediment bacteria coun t by microscopy (number/high power field)Ordered By: Santa Sethi on 05-24-2024 Bacteria LM.HPF (Urine sed) [#/Area] 0 /[HPF] None Seen [facility] Urine specific gravity measu rementOrdered By: Santa Sethi on 05-24-2024 Specific gravity (U) [Rel density] 1.010 1.002-1.030 [facility] Urobilinogen Ql (U)Ordered B y: Santa Sethi on 05-24-2024 Urine Urobilinogen Normal mg/dl Normal [facility] White blood cell countOrdere d By: Santa Sethi on 05-24-2024 Urine WBC 0 SEEN /hpf 0-5 [facility] Urine Cultureon 05-14-2024 URC Mixed Gram Pos Gram Neg Org [place] Count 80,000-100,000 MIXC Mixed contaminants. Submit a new specimen if indicated. Normal [facility] Comment on above: Performed By: #### M 100.2200, L400.0001 #### [facility] Laboratory [address] [place], [place], [id number] Laboratory - Chemistry and C hemistry - challengeon 05-11-2024 Bilirubin Ql (U) Negative [facility] Glucose Ql (U) Negative [facility] Ketones Ql (U) Negative [facility] pH (U) 6.5 [pH] [facility] Specific gravity (U) [Rel density] 1.010 [facility] Urobilinogen (U) [Mass/Vol] Negative [facility] Laboratory - Hematology and Cell countson 05-11-2024 Hemoglobin Ql (U) Negative [facility] Laboratory - Specimen inform ationon 05-11-2024 Clarity (U) Clear [facility] Color (U) Yellow [facility] Laboratory - Urinalysison Nitrite Ql (U) Negative [facility] Protein Ql (U) Trace [facility] No Panel Informationon 05-11 Urine Leukocytes Positive [facility] Urine Non-Hemolyzed Blood Negative [facility] Urgent Care Visit Reporton 0 05-11-2024 Urgent Care Visit Report [facility] [address] , [address] [place] [address] OFFICE VISIT Date of Service: 05/11/24 MR#: [id number] Acct: [id number] Name: KENDAL TAYLOR Rep #: [id number] : 1940 Provider: KOREY Alfred Age/Sex: 84/F Location: 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 Is patient in pain?: No Allergies albuterol Allergy (Verified 05/11/24 08:53) Unknown amoxicillin Allergy (Verified 05/11/24 08:53) Hives Penicillins Allergy (Verified 05/11/24 08:53) Hives sulfamethoxazole (From Bactrim) Allergy (Verified 05/11/24 08:53) Hives trimethoprim (From Bactrim) Allergy (Verified 05/11/24 08:53) Hives Medications ???Medication ???Instructions ???Recorded ???Confirmed ???Type cholecalciferol (vitamin D3) 125 125 mcg PO DAILY 08/28/22 02/04/24 History mcg (5,000 unit) capsule coq10 1 tab PO 1XD 08/28/22 02/04/24 History fremanezumab-vfrm 225 mg/1.5 mL 225 mg subcut QMONTH 08/28/22 02/04/24 History subcutaneous auto-injector (Ajovy) ketonazole shampoo 1 applic topical 1XD PRN dry skin 08/28/22 02/04/24 History magnesium 250 mg tablet See Rx Instructions PO DAILY 08/28/22 02/04/24 History methocarbamol 750 mg tablet 750 mg PO .COMPLEX PRN pain 08/28/22 02/04/24 History riboflavin (vitamin B2) 100 mg 100 mg PO BID 08/28/22 02/04/24 History tablet rizatriptan 10 mg tablet See Rx Instructions PO .COMPLEX 08/28/22 02/04/24 History triamcinolone acetonide 0.1 % 1 applic topical BID #30 grams 09/11/22 02/04/24 Rx topical cream diclofenac sodium 1 % topical gel 2 g topical BID PRN Osteoarthritis 09/30/22 02/04/24 Rx #100 grams diphenoxylate-atropin e 2.5 1 tab PO BID PRN diarrhea #30 tabs 05/19/23 02/04/24 Rx mg-0.025 mg tablet meclizine 12.5 mg tablet 12.5 mg PO BID-QID PRN motion 05/19/23 02/04/24 Rx sickness #30 tabs sucralfate 1 gram tablet 1 g PO BID #180 tabs 05/19/23 02/04/24 Rx colestipol 1 gram tablet 1 g PO TID #270 tabs 05/26/23 02/04/24 Rx omeprazole 20 mg capsule,delayed 20 mg PO DAILY #90 caps 09/18/23 02/04/24 Rx release amlodipine 5 mg tablet 5 mg PO QDAY 02/04/24 02/04/24 History chlorthalidone 50 mg tablet 50 mg PO QDAY 02/04/24 02/04/24 History ezetimibe 10 mg tablet 10 mg PO QDAY 02/04/24 02/04/24 History potassium chloride 10 mEq 10 meq PO QDAY 02/04/24 02/04/24 History capsule,extended release azithromycin 250 mg tablet See Rx Instructions PO .COMPLEX #6 05/11/24 05/11/24 Rx tabs meclizine 25 mg tablet 12.5 mg (1/2 x 25 mg) PO TID PRN 05/11/24 05/11/24 Rx dizziness #14 tabs nitrofurantoin 100 mg PO Q12H 5 days #10 caps 05/11/24 05/11/24 Rx monohydrate/macrocrys tals 100 mg capsule (Macrobid) Is last menstrual period known: No Post menopausal: Yes Patient : No Have you fallen in the past year?: No Nurse's Note: lightheaded, drainage, ST x 3 weeks. dysuria x 2 days. concern for UTI PFSH Medical History Wears hearing aid Wears glasses MRSA infection History of IBS Non-smoker CPAP (continuous positive airway pressure) dependence Sleep apnea History of echocardiogram Heart murmur Chronic GERD Osteoarthritis IBS (irritable bowel syndrome) Recurrent infections High cholesterol Hearing problem UTI (urinary tract infection) Degenerative disc disease GERD (gastroesophageal reflux disease) Hypertension Migraines Surgical History History of knee replacement ( 2013) History of bladder surgery ( 2003) FH: cholecystectomy Bunion ( 1988) H/O: hysterectomy ( 1980) Family History Mother Hypertension Arthritis Bowel disease Myocardial infarction, Onset Age: 70 Age related osteoporosis Father Diabetes Myocardial infarction, Onset Age: 50 Social History adopted: No household members: spouse housing: house number of children: 6 current occupational status: employed current occupation: [employer] current occupational exposures/hazards: No pets and animals: Yes pets and animals: cat(s) leisure activities: exercise, reading and other history of recent travel: No sexually a (more content not included)... Normal [facility] Urine cultureOrdered By: Seven Rodríguez on 05-11-2024 Bacteria identified Cx Nom (U) Mixed Gram Pos & Gram Neg Org Abnormal [facility] Lipid 1996 panelon 4 Cholesterol [Mass/Vol] 228 mg/dL High <200 Cl [facility] Comment on above: Order Comment: Speci men Type: BLOOD SPECIMEN Ordering Facility: [facility] Address: [address] [place] [address] Result Comment: <200 mg/dL, Desirable 200-239 mg/dL, Borderline high >239 mg/dL, High Performed By: #### 2 4331-1 #### [facility] CLIA [id number] [address] [place] [address] [place] [facility] CLIA [id number] [address] [place] [address] Cholesterol in HDL [Mass/Vol] 60 mg/dL Normal >39 [facility] Comment on above: Order Comment: Nargis adams Type: BLOOD SPECIMEN Ordering Facility: [facility] Address: [address] [place] [address] Result Comment: 40-5 9 mg/dL, Acceptable >59 mg/dL, High: Negative risk factor for coronary heart disease <40 mg/dL, Low: Positive risk factor for coronary heart disease Performed By: #### 2 4331-1 #### [facility] CLIA [id number] [address] [place] [address] [place] [facility] CLIA [id number] [address] [place] [address] [place] Cholesterol in LDL [Mass/Vol] 132 mg/dL High <100 [facility] Comment on above: Order Comment: Nargis adams Type: BLOOD SPECIMEN Ordering Facility: [facility] Address: [address] [place] [address] Result Comment: <100 mg/dL, Optimal 100-129 mg/dL, Near optimal/above optimal 130-159 mg/dL, Borderline high 160-189 mg/dL, High >189 mg/dL, Very high Secondary prevention optimal LDL Cholesterol levels are recommended to be < 70 mg/dL Performed By: #### 2 4331-1 #### [facility] CLIA [id number] [address] [place] [address] [place] [facility] CLIA [id number] [address] [place] [address] [place] Cholesterol in LDL/Cholesterol in HDL [Mass ratio] 2.20 {ratio} Normal <2.54 [facility] Comment on above: Order Comment: Nargis adams Type: BLOOD SPECIMEN Ordering Facility: [facility] Address: [address] [place] [address] Result Comment: Miesha pimentel: 1. National Cholesterol Education Program ATP III Guideline At-A-Glance Quick Desk Reference: National Heart, Lung, and Blood Bruner. National Institutes of Health. 2001: NIH Publication No. 01-3305. 2. An International Atherosclerosis Society position paper: global recommendations for the management of dyslipidemia: executive summary, Atherosclerosis. 2014: 232(2):410-413. Performed By: #### 2 4331-1 #### [facility] CLIA [id number] [address] [place] [address] [place] [facility] CLIA [id number] [address] [place] [address] [place] Cholesterol in VLDL [Mass/Vol] 36 mg/dL High <30 [facility] Comment on above: Order Comment: Nargis adams Type: BLOOD SPECIMEN Ordering Facility: [facility] Address: [address] [place] [address] Performed By: #### 2 4331-1 #### [facility] CLIA [id number] [address] [place] [address] [place] [facility] CLIA [id number] [address] [place] [address] [place] Cholesterol non HDL [Mass/Vol] 168 mg/dL High <130 [facility] Comment on above: Order Comment: Nargis admas Type: BLOOD SPECIMEN Ordering Facility: [facility] Address: [address] [place] [address] Result Comment: <130 mg/dL, Optimal 130-159 mg/dL, Near optimal/above optimal 160-189 mg/dL, Borderline high 190-219 mg/dL, High >219 mg/dL, Very high Secondary prevention optimal non HDL Cholesterol levels are recommended to be <100 mg/dL Performed By: #### 2 4331-1 #### [facility] CLIA [id number] [address] [place] [address] [place] [facility] CLIA [id number] [address] [place] [address] [place] Cholesterol.total/Lisa sterol in HDL [Mass ratio] 3.80 {ratio} Normal <5.10 [facility] Comment on above: Order Comment: Speci men Type: BLOOD SPECIMEN Ordering Facility: [facility] Address: [address] [place] [address] Performed By: #### 2 4331-1 #### [facility] CLIA [id number] [address] [place] [address] [place] [facility] CLIA [id number] [address] [place] [address] [place] FASTING TIME 12 hrs Normal [facility] Comment on above: Order Comment: Speci men Type: BLOOD SPECIMEN Ordering Facility: [facility] Address: [address] [place] [address] Performed By: #### 2 4331-1 #### [facility] CLIA [id number] [address] [place] [address] [place] [facility] CLIA [id number] [address] [place] [address] [place] Triglyceride [Mass/Vol] 178 mg/dL High <150 C [facility] Comment on above: Order Comment: Speci men Type: BLOOD SPECIMEN Ordering Facility: [facility] Address: [address] [place] [address] Result Comment: <150 mg/dL, Normal 150-199 mg/dL, Borderline high 200-499 mg/dL, High >499 mg/dL, Very high Performed By: #### 2 4331-1 #### [facility] CLIA [id number] [address] [place] [address] [place] [facility] CLIA [id number] [address] [place] [address] [facility] TAYLORKENDAL SIDDIQUI ([id number]) 1940 F Date Time Provider Department 02/17/24 VALERIE KOTHARI During your visit today, we recorded the following information about you: Michell Helms LPN 02/17/2024 9:42 AM Signed ----- Message from Valerie Kothari MD sent at 02/17/2024 9:33 AM EDT ----- Good morning, Could we please let the patient know that her potassium is slightly reduced. Will send a prescription for potassium supplementation to her pharmacy. Valerie Kothari MD, Michell Murray LPN 02/17/2024 9:46 AM Signed Spoke with patient about test results and informed her Dr. Kothari is sending a prescription for potassium supplementation to her pharmacy. Patient verbalizes understanding. Michell Helms LPN Allergies As of Date: 02/17/2024 Noted Allergy Reaction CRISTINE INHIBITORS 05/13/2003 14 - Other: See Comments Comments: listril, zestril; makes headaches worse ADVAIR DISKUS (FLUTICASONE PROPIO*04/04/2011 5 - Intolerance Comments: sore mouth ALBUTEROL 04/04/2011 5 - Intolerance Comments: anxiety,jitters,tachy cardia AMITRIPTYLINE 02/23/2015 1 - Mental Status Change Comments: sedation with high doses only. Takes regularly AMOXICILLIN 05/13/2003 4 - Hives Comments: HIVES BACTRIM (SULFAMETHOXAZOLE-TRI METH*12/10/2010 2 - Rash 14 - Other: See [...] - Intolerance Comments: Dizziness at 500mg dose LISINOPRIL 11/24/2023 14 - Other: See Comments Comments: Dizziness, almost passed out PNEUMOVAX 23 (PNEUMOCOCCAL 23-SANTOSH*08/09/2005 14 - Other: See Comments Comments: had one in 1997,, had reaction; arm swelled up for about 8 months GHWRFAT-KYN-[id number] REDUCTASE INHIBIT*03/22/2015 14 - Other: See Comments Comments: pt declines-not work ULTRAM (TRAMADOL HCL) 02/21/2014 14 - Other: See Comments Comments: headache Date Reviewed: 02/16/2024 Reviewed by: Hamida Valdez MA - Fully Assessed Reason for Visit: Results [95] Prescriptions as of 02/17/2024 - potassium chloride ER (KLOR-CON M10) 10 mEq tablet Take 1 tablet by mouth two times a day. - chlorthalidone (HYGROTON) 50 mg tablet Take 1 tablet by mouth once daily. - ezetimibe (ZETIA) 10 mg tablet Take 1 tablet by mouth once daily. - rizatriptan (MAXALT) 10 mg tablet Take 1 tablet (10 mg) by mouth as needed (at onset of headache. May repeat after 2 hours.). Do not exceed 30 mg per day. - methocarbamol (ROBAXIN) 750 mg tablet Take 1 tablet by mouth two times a day as needed. - fremanezumab-vfrm (AJOVY AUTOINJECTOR) 225 mg/1.5 mL auto-injector Inject 1.5 mL subcutaneously once every month. Do not shake. - nitrofurantoin macrocrystal (MACRODANTIN) 50 mg capsule Take 1 capsule by mouth once daily. - estradiol (E2) emollient cream 0.2 mg/gram (CPD) Finger-Tip amount applied to indicated area at bedtime every other day - benzonatate (TESSALON PERLES) 100 mg capsule Take 2 capsules by mouth three times daily as needed. - spironolactone (ALDACTONE) 25 mg tablet Take 1 tablet by mouth once daily. - fluconazole (DIFLUCAN) 150 mg tablet Take 1 tablet by mouth Every 3 Days. - colestipol (COLESTID) 1 gram tablet Take 3 tablets by mouth once daily. - sucralfate (CARAFATE) 1 gram tablet Take 1 tablet by mouth twice daily. - ketoconazole (NIZORAL) 2 % shampoo Apply to scalp rash every other day until clear- Lather and rinse and then lather 2nd time and leave set on hair for 5 min and rinse again. - riboflavin, vitamin B2, (VITAMIN B2) 100 mg tab Take 200 mg by mouth twice daily. - MAGNESIUM ORAL Take 500 mg by mouth daily at bedtime. - coenzyme Q10 (COENZYME Q-10) 100 mg cap capsule Take 200 mg by mouth once daily. - HYDROcodone-acetamino phen (NORCO) 5-325 mg per tablet Take 1 tablet by mouth every 8 hours as needed for pain. - diphenoxylate-atropin e (LOMOTIL) 2.5-0.025 mg per tablet Take 1 tablet by mouth twice daily as needed for diarrhea for up to 90 days. - omeprazole (PRILOSEC) 40 mg capsule TAKE 1 CAPSULE DAILY - meclizine (ANTIVERT) 12.5 mg tab Take 1 tablet by mouth three times daily as needed (dizziness). - acetaminophen (TYLENOL ORAL) Take by mouth as needed. - cholecalciferol, vitamin D3, (VITAMIN D3 ORAL) Take 5,000 Units by mouth once daily. Problem List As Of Date 02/17/2024 Noted Resolved ESOPHAGEAL REFLUX [K21.9] 08/09/2005 Osteoporosis [M81.0] 08/09/2005 RECURRENT UTI'S [N39.0] 08/12/2005 01/31/2016 (more content not included)... Normal [facility] Basic metabolic 2000 panelon 02-16-2024 Anion gap [Moles/Vol] 13 mmol/L 8 - 15 mmol/L [facility] Calcium [Mass/Vol] 9.4 mg/dL 8.5 - 10. 2 mg/dL [facility] Chloride [Moles/Vol] 99 mmol/L 98 - 10 7 mmol/L [facility] CO2 [Moles/Vol] 27 mmol/L 22 - 30 mmol/L [facility] Creatinine [Mass/Vol] 0.97 mg/dL High 0.58 - 0.96 mg/dL [facility] GFR/1.73 sq M.predicted among non-blacks MDRD (S/P/Bld) [Vol rate/Area] 58 mL/min/{1.73_m2} Low - PINF [facility] Comment on above: Estimated Glomerular Filtration Rate (eGFR) is calculated using the 2020 CKD-EPI creatinine equation. This equation utilizes serum creatinine, sex, and age as parameters. The creatinine assay has traceable calibration to isotope dilution-mass spectrometry. Refer to KDIGO guidelines for clinical interpretation. In patients with unstable renal function, e.g. those with acute kidney injury, the eGFR may not accurately reflect actual GFR. Glucose [Mass/Vol] 96 mg/dL 74 - 99 mg/dL [facility] Comment on above: The [place] Diabete s Association (ADA) provides guidance for cutoff values for fasting glucose and random glucose. The ADA defines fasting as no caloric intake for at least 8 hours. Fasting plasma glucose results between 100 to 125 mg/dL indicate increased risk for diabetes (prediabetes). Fasting plasma glucose results greater than or equal to 126 mg/dL meet the criteria for diagnosis of diabetes. In the absence of unequivocal hyperglycemia, results should be confirmed by repeat testing. In a patient with classic symptoms of hyperglycemia or hyperglycemic crisis, random plasma glucose results greater than or equal to 200 mg/dL meet the criteria for diagnosis of diabetes. Reference: Standards of Medical Care in Diabetes 2016, [place] Diabetes Association. Diabetes Care. 2016.39(Suppl 1). Interpretation and review of laboratory results Abnormal [facility] Potassium [Moles/Vol] 3.5 mmol/L Low 3.7 - 5.1 mmol/L [facility] Sodium [Moles/Vol] 139 mmol/L 136 - 144 mmol/L [facility] Urea nitrogen [Mass/Vol] 20 mg/dL 7 - 21 mg/dL [facility] Anion gap [Moles/Vol] 13 mmol/L Normal 8-15 [facility] Comment on above: Order Comment: Speci men Type: BLOOD SPECIMEN Ordering Facility: [facility] Address: [address] [place] [address] Performed By: #### 2 4321-2 #### [facility] CLIA [id number] [address] [place] [address] [place] Calcium [Mass/Vol] 9.4 mg/dL Normal 8.5-10.2 [facility] Comment on above: Order Comment: Speci men Type: BLOOD SPECIMEN Ordering Facility: [facility] Address: [address] [place] [address] Performed By: #### 2 4321-2 #### [facility] CLIA [id number] [address] [place] [address] [place] Chloride [Moles/Vol] 99 mmol/L Normal 98-107 [facility] Comment on above: Order Comment: Speci men Type: BLOOD SPECIMEN Ordering Facility: [facility] Address: [address] [place] [address] Performed By: #### 2 4321-2 #### [facility] CLIA [id number] [address] [place] CO2 [Moles/Vol] 27 mmol/L Normal 22-30 [facility] Comment on above: Order Comment: Speci men Type: BLOOD SPECIMEN Ordering Facility: [facility] Address: [address] [place] [address] Performed By: #### 2 4321-2 #### [facility] CLIA [id number] [address] [place] Creatinine [Mass/Vol] 0.97 mg/dL High 0.58-0.96 [facility] Comment on above: Order Comment: Speci men Type: BLOOD SPECIMEN Ordering Facility: [facility] Address: [address] [place] [address] Performed By: #### 2 4321-2 #### [facility] CLIA [id number] [address] [place] Creatinine and Glomerular filtration rate.predicted panel (S/P/Bld) 58 mL/min/1.73m??? Low >=60 [facility] Comment on above: Order Comment: Speci men Type: BLOOD SPECIMEN Ordering Facility: [facility] Address: [address] [place] [address] Result Comment: Amy mated Glomerular Filtration Rate (eGFR) is calculated using the 2020 CKD-EPI creatinine equation. This equation utilizes serum creatinine, sex, and age as parameters. The creatinine assay has traceable calibration to isotope dilution-mass spectrometry. Refer to KDIGO guidelines for clinical interpretation. In patients with unstable renal function, e.g. those with acute kidney injury, the eGFR may not accurately reflect actual GFR. Performed By: #### 2 4321-2 #### [facility] CLIA [id number] [address] [place] [address] [place] Glucose [Mass/Vol] 96 mg/dL Normal 74-99 [facility] Comment on above: Order Comment: Nargis adams Type: BLOOD SPECIMEN Ordering Facility: [facility] Address: [address] [place] [address] Result Comment: The [place] Diabetes Association (ADA) provides guidance for cutoff values for fasting glucose and random glucose. The ADA defines fasting as no caloric intake for at least 8 hours. Fasting plasma glucose results between 100 to 125 mg/dL indicate increased risk for diabetes (prediabetes). Fasting plasma glucose results greater than or equal to 126 mg/dL meet the criteria for diagnosis of diabetes. In the absence of unequivocal hyperglycemia, results should be confirmed by repeat testing. In a patient with classic symptoms of hyperglycemia or hyperglycemic crisis, random plasma glucose results greater than or equal to 200 mg/dL meet the criteria for diagnosis of diabetes. Reference: Standards of Medical Care in Diabetes 2016, [place] Diabetes Association. Diabetes Care. 2016.39(Suppl 1). Performed By: #### 2 4321-2 #### [facility] CLIA [id number] [address] [place] [address] [place] Potassium [Moles/Vol] 3.5 mmol/L Low 3.7-5.1 [facility] Comment on above: Order Comment: Nargis adams Type: BLOOD SPECIMEN Ordering Facility: [facility] Address: [address] [place] [place] [id number] Performed By: #### 2 4321-2 #### [facility] CLIA [id number] [address] [place] [address] [place] Sodium [Moles/Vol] 139 mmol/L Normal 136-144 [facility] Comment on above: Order Comment: Nargis adams Type: BLOOD SPECIMEN Ordering Facility: [facility] Address: [address] [id number] Performed By: #### 2 4321-2 #### [facility] CLIA [id number] [address] Urea nitrogen [Mass/Vol] 20 mg/dL Normal 7-21 [facility] Comment on above: Order Comment: Masoodindira adams Type: BLOOD SPECIMEN Ordering Facility: [facility] Address: [address] [place] [id number] Performed By: #### 2 4321-2 #### [facility] CLIA [id number] [address] CNOVon 02-16-2024 CNOV Office Visit (AGCARDPOB) KENDAL TAYLOR ([id number]) 1940 F Date Time Provider Department 02/16/24 10:00 AM VALERIE KOTHARI AGCARDPOB During your visit today, we recorded the following information about you: Pulse Blood pressure Weight 88/minute 124/74 74.4 kg Hamida Valdez MA 02/16/2024 9:54 AM Signed Pt has severe muscle pain while taking amlodipine. Pt stopped taking. Valerie Kothari MD 02/16/2024 10:28 AM Signed Chief Complaint: Patient presents with: CARD Follow Up 3 Month: Primary hypertension Kendal Taylor is a 83 year old female referred to me by Santa Sethi . She presents with exertional fatigue and dyspnea.. He was seen by myself in the past. She has morbid obesity, hypertension, hyperlipidemia, has been noticing fatigue since the beginning of the year. In the past, she has had ischemic workup that included a 2D echo on 10/16/2023 that demonstrated normal LV with mild aortic stenosis. Similarly, an exercise nuclear stress test done on 07/21/2023 demonstrated no ischemia. During the last office visit, her blood pressure was suboptimally controlled. We had added amlodipine. She took it for 2 weeks. After that, she had flulike illness and had sinusitis during which she had discontinued amlodipine. She brings blood pressure recordings at home home for the past 2 weeks. They range b/n 120-130 systolic, Diastoilc b/n 70-80 mm Hg. Denies any other specific cardiac complaints. Also, she mentions that her potassium level was low and her primary care provider has started on potassium supplementation. No hospitalizations or admissions for any cardiac or noncardiac issues. 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 w/focal laser Right carpal tunnel syndrome 04/03/2015 Sleep apnea Snoring Trigger ring finger of right hand 06/05/2015 Trochanteric bursitis of left hip 07/19/2016 Unspecified migraine Unspecified sleep apnea 2003 hypoxic sleep apnea Urinary incontinence Venous stasis Wound infection after surgery 03/07/2014 PAST SURGICAL [...] 14 10/16/06 Right infraorbital skin lesion ablation ESOPHAGOGASTRODUODENO SCOPY TRANSORAL DIAGNOSTIC 11/02/2018 EGD LAPAROSCOPY SURG CHOLECYSTECTOMY Cholecystectomy, lap PAST SURGICAL HISTORY OF 09/29 repair prolapse bladder PAST SURGICAL HISTORY OF eye laser surgery PAST SURGICAL HISTORY OF 1988 B/L bunion surgery - Dr. Solis - [facility] PAST SURGICAL HISTORY OF 02/02/2014 right TKA [...] Never Smokeless tobacco: Never Vaping Use Vaping status: Never Used Substance Use Topics Alcohol use: Not Currently Drug use: Never Current Outpatient Medications Medication Sig chlorthal (more content not included)... Normal [facility] Basic Metabolic Profile (BMP )on 02-04-2024 BUN/CRE 29.0 RATIO High 10-20 [facility] Comment on above: Performed By: #### M 100.2200, L400.0001 #### [facility] [address] [place], [address] CA,Total 9.8 mg/dL Normal 8.5-10.1 [facility] Comment on above: Performed By: #### M 100.2200, L400.0001 #### [facility] [address] [place], [address] Chloride [Moles/Vol] 100 mmol/L Normal 98-107 [facility] Comment on above: Performed By: #### M 100.2200, L400.0001 #### [facility] [address] [place], [address] CO2 [Moles/Vol] 29.0 mmol/L Normal 21.0-32.0 [facility] Comment on above: Performed By: #### M 100.2200, L400.0001 #### [facility] [address] [place], [address] Creatinine [Mass/Vol] 0.97 mg/dL Normal 0.55-1.02 [facility] Comment on above: Result Comment: The validity of the calculated GFR GFRAA in patients over 70 years has not been determined. Clinical correlation is essential. Performed By: #### M 100.2200, L400.0001 #### [facility] [address] [place], [address] EST GFR - AA 71 mL/min Normal >60 [facility] Comment on above: Result Comment: Afri can Bulgarian GFR Calc Performed By: #### M 100.2200, L400.0001 #### [facility] [address] [place], [address] GAP 10 Normal 5-15 [facility] Comment on above: Performed By: #### M 100.2200, L400.0001 #### [facility] [address] [place], [address] GFR/1.73 sq M.predicted among non-blacks MDRD (S/P/Bld) [Vol rate/Area] 59 mL/min/{1.73_m2} Low >60 [facility] Comment on above: Result Comment: Non- GFR Calc Performed By: #### M 100.2200, L400.0001 #### [facility] [address] [place], [address] Glucose [Mass/Vol] 104 mg/dL Normal 74-106 [facility] Comment on above: Result Comment: Fast ing Glucose result from 100 to 125 mg/dL suggests IMPAIRED HOMEOSTASIS per A.D.A. criteria. Performed By: #### M 100.2200, L400.0001 #### [facility] [address] [place], [address] Potassium [Moles/Vol] 3.0 mmol/L Low 3.5-5.1 [facility] Comment on above: Performed By: #### M 100.2200, L400.0001 #### [facility] [address] [place], [address] Sodium [Moles/Vol] 139 mmol/L Normal 136-145 [facility] Comment on above: Performed By: #### M 100.2200, L400.0001 #### [facility] [address] [place], [address] Urea nitrogen [Mass/Vol] 28 mg/dL High 7-18 [facility] Comment on above: Performed By: #### M 100.2200, L400.0001 #### [facility] [address] [place], [address] MR/Nir 02-04-2024 /KAYLENE.ELISHA [facility] [address] [place] [address] OFFICE VISIT Date of Service: 02/04/24 MR#: [id number] Acct: [id number] Name: KENDAL TAYLOR Rep #: [id number] : 1940 Provider: Dr. 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5 mL 225 mg subcut QMONTH 08/28/22 02/04/24 History subcutaneous auto-injector (Ajovy) ketonazole shampoo 1 applic topical 1XD PRN dry skin 08/28/22 02/04/24 History magnesium 250 mg tablet See Rx Instructions PO DAILY 08/28/22 02/04/24 History methocarbamol 750 mg tablet 750 mg PO .COMPLEX PRN pain 08/28/22 02/04/24 History riboflavin (vitamin B2) 100 mg 100 mg PO BID 08/28/22 02/04/24 History tablet rizatriptan 10 mg tablet See Rx Instructions PO .COMPLEX 08/28/22 02/04/24 History triamcinolone acetonide 0.1 % 1 applic topical BID #30 grams 09/11/22 02/04/24 Rx topical cream diclofenac sodium 1 % topical gel 2 g topical BID PRN Osteoarthritis 09/30/22 02/04/24 Rx #100 grams diphenoxylate-atropin e 2.5 1 tab PO BID PRN diarrhea #30 tabs 05/19/23 02/04/24 Rx mg-0.025 mg tablet meclizine 12.5 mg tablet 12.5 mg PO BID-QID PRN motion 05/19/23 02/04/24 Rx sickness #30 tabs sucralfate 1 gram tablet 1 g PO BID #180 tabs 05/19/23 02/04/24 Rx colestipol 1 gram tablet 1 g PO TID #270 tabs 05/26/23 02/04/24 Rx omeprazole 20 mg capsule,delayed 20 mg PO DAILY #90 caps 09/18/23 02/04/24 Rx release amlodipine 5 mg tablet 5 mg PO QDAY 02/04/24 02/04/24 History azithromycin 250 mg tablet See Rx Instructions PO .COMPLEX #6 02/04/24 02/04/24 Rx (Zithromax) tabs chlorthalidone 50 mg tablet 50 mg PO QDAY 02/04/24 02/04/24 History ezetimibe 10 mg tablet 10 mg PO QDAY 02/04/24 02/04/24 History potassium chloride 10 mEq 10 meq PO QDAY 02/04/24 02/04/24 History capsule,extended release Have you fallen in the past year?: No PFSH Medical History Wears hearing aid Wears glasses MRSA infection History of IBS Non-smoker CPAP (continuous positive airway pressure) dependence Sleep apnea History of echocardiogram Heart murmur Chronic GERD Osteoarthritis IBS (irritable bowel syndrome) Recurrent infections High cholesterol Hearing problem UTI (urinary tract infection) Degenerative disc disease GERD (gastroesophageal reflux disease) Hypertension Migraines Surgical History History of knee replacement ( 2013) History of bladder surgery ( 2003) FH: cholecystectomy Bunion ( 1988) H/O: hysterectomy ( 1980) Family History Mother Hypertension Arthritis Bowel disease Myocardial infarction, Onset Age: 70 Age related osteoporosis Father Diabetes Myocardial infarction, Onset Age: 50 Social History adopted: No household members: spouse housing: house number of children: 6 current occupational status: employed current occupation: [employer] current occupational exposures/hazards: No pets and animals: Yes pets and animals: cat(s) leisure activities: exercise, reading and other history of recent travel: No sexually active: No Smoking Status: Never smoker alcohol intake: never substance use type: does not use well-balanced diet: daily or most days caffeine: No eating out: rarely or never during the past year weight has: increased > 10 lbs what type of physical activity do you participate in: walking and aerobics brenda/episcopal: Worship seatbelt use: always do you feel safe at (more content not included)... Normal [facility] Magnesiumon 02-04-2024 Magnesium [Mass/Vol] 1.7 mg/dL Normal 1.6-2.6 [facility] Comment on above: Performed By: #### M 100.2200, L400.0001 #### [facility] [address] [place], [place], [address] [facility] 12-22-[address] [facility] Telephone (AGCARDPOB ) KENDAL TAYLOR ([id number]) 1940 F Date Time Provider Department 12/22/23 VALERIE KOTHARI AGCARDPOB During your visit today, we recorded the following information about you: Maia Zhou RN 12/22/2023 1:27 PM Signed Pt called in and states she will run out of chlorthalidone before receiving it from [facility]. Requests 30 day supply to [facility] in [place]. I called in Chlorthalidone 50 mg 1 tablet by mouth daily, 30 day supply Maia Zhou RN Allergies As of Date: 12/22/2023 Noted Allergy Reaction CRISTINE INHIBITORS 05/13/2003 14 - Other: See Comments Comments: listril, zestril; makes headaches worse ADVAIR DISKUS (FLUTICASONE PROPIO*04/04/2011 5 - Intolerance Comments: sore mouth ALBUTEROL 04/04/2011 5 - Intolerance Comments: anxiety,jitters,tachy cardia AMITRIPTYLINE 02/23/2015 1 - Mental Status Change Comments: sedation with high doses only. Takes regularly AMOXICILLIN 05/13/2003 4 - Hives Comments: HIVES BACTRIM (SULFAMETHOXAZOLE-TRI METH*12/10/2010 2 - Rash 14 - Other: See [...] - Intolerance Comments: Dizziness at 500mg dose LISINOPRIL 11/24/2023 14 - Other: See Comments Comments: Dizziness, almost passed out PNEUMOVAX 23 (PNEUMOCOCCAL 23-SANTOSH*08/09/2005 14 - Other: See Comments Comments: had one in 1997,, had reaction; arm swelled up for about 8 months [id number] REDUCTASE INHIBIT*03/22/2015 14 - Other: See Comments Comments: pt declines-not work ULTRAM (TRAMADOL HCL) 02/21/2014 14 - Other: See Comments Comments: headache Date Reviewed: 11/24/2023 Reviewed by: Valerie Kothari MD - Fully Assessed Reason for Visit: Refill Request [94] Prescriptions as of 03/24/2024 - potassium chloride ER (KLOR-CON M10) 10 mEq tablet Take 1 tablet by mouth two times a day. - chlorthalidone (HYGROTON) 50 mg tablet Take 1 tablet by mouth once daily. - ezetimibe (ZETIA) 10 mg tablet Take 1 tablet by mouth once daily. - rizatriptan (MAXALT) 10 mg tablet Take 1 tablet (10 mg) by mouth as needed (at onset of headache. May repeat after 2 hours.). Do not exceed 30 mg per day. - methocarbamol (ROBAXIN) 750 mg tablet Take 1 tablet by mouth two times a day as needed. - fremanezumab-vfrm (AJOVY AUTOINJECTOR) 225 mg/1.5 mL auto-injector Inject 1.5 mL subcutaneously once every month. Do not shake. - nitrofurantoin macrocrystal (MACRODANTIN) 50 mg capsule Take 1 capsule by mouth once daily. - estradiol (E2) emollient cream 0.2 mg/gram (CPD) Finger-Tip amount applied to indicated area at bedtime every other day - benzonatate (TESSALON PERLES) 100 mg capsule Take 2 capsules by mouth three times daily as needed. - spironolactone (ALDACTONE) 25 mg tablet Take 1 tablet by mouth once daily. - fluconazole (DIFLUCAN) 150 mg tablet Take 1 tablet by mouth Every 3 Days. - colestipol (COLESTID) 1 gram tablet Take 3 tablets by mouth once daily. - sucralfate (CARAFATE) 1 gram tablet Take 1 tablet by mouth twice daily. - ketoconazole (NIZORAL) 2 % shampoo Apply to scalp rash every other day until clear- Lather and rinse and then lather 2nd time and leave set on hair for 5 min and rinse again. - riboflavin, vitamin B2, (VITAMIN B2) 100 mg tab Take 200 mg by mouth twice daily. - MAGNESIUM ORAL Take 500 mg by mouth daily at bedtime. - coenzyme Q10 (COENZYME Q-10) 100 mg cap capsule Take 200 mg by mouth once daily. - HYDROcodone-acetamino phen (NORCO) 5-325 mg per tablet Take 1 tablet by mouth every 8 hours as needed for pain. - diphenoxylate-atropin e (LOMOTIL) 2.5-0.025 mg per tablet Take 1 tablet by mouth twice daily as needed for diarrhea for up to 90 days. - omeprazole (PRILOSEC) 40 mg capsule TAKE 1 CAPSULE DAILY - meclizine (ANTIVERT) 12.5 mg tab Take 1 tablet by mouth three times daily as needed (dizziness). - acetaminophen (TYLENOL ORAL) Take by mouth as needed. - cholecalciferol, vitamin D3, (VITAMIN D3 ORAL) Take 5,000 Units by mouth once daily. Problem List As Of Date 12/22/2023 Noted Resolved ESOPHAGEAL REFLUX [K21.9] 08/09/2005 Osteoporosis [M81.0] 08/09/2005 RECURRENT UTI'S [N39.0] 08/12/2005 01/31/2016 Abdominal pain, unspecified site [R10.9] 10/11/2005 04/14/2013 Migraine without aura [G43.009] 11/11/2005 VARUN (obstructive sleep apnea) [G47.33] 11/11/2005 Mixed hyperlipidemia [E78.2] 11/11/2005 Hypertension [I10] 10/26/2009 Diarrhea [R19.7] 01/09/2011 04/14/2013 (more content not included)... Normal [facility] CNPNon 12-18-2023 CNPN Telephone (NHATWN) KENDAL TAYLOR ([id number]) 1940 F Date Time Provider Department 12/18/23 TERRANCE MCCAIN NMSANDI During your visit today, we recorded the following information about you: Anabell Colby RN 12/18/2023 3:38 PM Addendum PA is unable to be accepted, states methocarbamol is not covered.Tizanidine is tier 2 while Methocarbamol is tier 5. Noted patient has tried Tizanidine, will try completing PA. Anabell Colby RN 12/18/2023 3:51 PM Signed KENDAL TAYLOR ([place]: [id number]) - [id number] Methocarbamol 750MG tablets status: PA Response - Approved Created: December 17, 2023 Sent: December 18, 2023 Allergies As of Date: 12/18/2023 Noted Allergy Reaction CRISTINE INHIBITORS 05/13/2003 14 - Other: See Comments Comments: listril, zestril; makes headaches worse ADVAIR DISKUS (FLUTICASONE PROPIO*04/04/2011 5 - Intolerance Comments: sore mouth ALBUTEROL 04/04/2011 5 - Intolerance Comments: anxiety,jitters,tachy cardia AMITRIPTYLINE 02/23/2015 1 - Mental Status Change Comments: sedation with high doses only. Takes regularly AMOXICILLIN 05/13/2003 4 - Hives Comments: HIVES BACTRIM (SULFAMETHOXAZOLE-TRI METH*12/10/2010 2 - Rash 14 - Other: See [...] - Intolerance Comments: Dizziness at 500mg dose LISINOPRIL 11/24/2023 14 - Other: See Comments Comments: Dizziness, almost passed out PNEUMOVAX 23 (PNEUMOCOCCAL 23-SANTOSH*08/09/2005 14 - Other: See Comments Comments: had one in 1997,, had reaction; arm swelled up for about 8 months [id number] REDUCTASE INHIBIT*03/22/2015 14 - Other: See Comments Comments: pt declines-not work ULTRAM (TRAMADOL HCL) 02/21/2014 14 - Other: See Comments Comments: headache Date Reviewed: 11/24/2023 Reviewed by: Valerie Kothari MD - Fully Assessed Reason for Visit: Medication Authorization [2049] Cmt: Methocarbamol 750MG tablets Prescriptions as of 12/18/2023 - chlorthalidone (HYGROTON) 50 mg tablet Take 1 tablet by mouth once daily. - potassium chloride SR (MICRO-K) 10 mEq CR capsule Take 1 capsule by mouth once daily. - amLODIPine (NORVASC) 5 mg tablet Take 1 tablet by mouth once daily. - ezetimibe (ZETIA) 10 mg tablet Take 1 tablet by mouth once daily. - rizatriptan (MAXALT) 10 mg tablet Take 1 tablet (10 mg) by mouth as needed (at onset of headache. May repeat after 2 hours.). Do not exceed 30 mg per day. - methocarbamol (ROBAXIN) 750 mg tablet Take 1 tablet by mouth two times a day as needed. - fremanezumab-vfrm (AJOVY AUTOINJECTOR) 225 mg/1.5 mL auto-injector Inject 1.5 mL subcutaneously once every month. Do not shake. - nitrofurantoin macrocrystal (MACRODANTIN) 50 mg capsule Take 1 capsule by mouth once daily. - estradiol (E2) emollient cream 0.2 mg/gram (CPD) Finger-Tip amount applied to indicated area at bedtime every other day - benzonatate (TESSALON PERLES) 100 mg capsule Take 2 capsules by mouth three times daily as needed. - spironolactone (ALDACTONE) 25 mg tablet Take 1 tablet by mouth once daily. - fluconazole (DIFLUCAN) 150 mg tablet Take 1 tablet by mouth Every 3 Days. - colestipol (COLESTID) 1 gram tablet Take 3 tablets by mouth once daily. - sucralfate (CARAFATE) 1 gram tablet Take 1 tablet by mouth twice daily. - ketoconazole (NIZORAL) 2 % shampoo Apply to scalp rash every other day until clear- Lather and rinse and then lather 2nd time and leave set on hair for 5 min and rinse again. - riboflavin, vitamin B2, (VITAMIN B2) 100 mg tab Take 200 mg by mouth twice daily. - MAGNESIUM ORAL Take 500 mg by mouth daily at bedtime. - coenzyme Q10 (COENZYME Q-10) 100 mg cap capsule Take 200 mg by mouth once daily. - HYDROcodone-acetamino phen (NORCO) 5-325 mg per tablet Take 1 tablet by mouth every 8 hours as needed for pain. - diphenoxylate-atropin e (LOMOTIL) 2.5-0.025 mg per tablet Take 1 tablet by mouth twice daily as needed for diarrhea for up to 90 days. - omeprazole (PRILOSEC) 40 mg capsule TAKE 1 CAPSULE DAILY - meclizine (ANTIVERT) 12.5 mg tab Take 1 tablet by mouth three times daily as needed (dizziness). - acetaminophen (TYLENOL ORAL) Take by mouth as needed. - cholecalciferol, vitamin D3, (VITAMIN D3 ORAL) Take 5,000 Units by mouth once daily. Problem List As Of Date 12/18/2023 Noted Resolved ESOPHAGEAL REFLUX [K21.9] 08/09/2005 Osteoporosis [M81.0] 08/09/2005 RECURRENT UTI'S [N39.0] 08/12/2005 01/31/2016 Abdominal pain, unspeci (more content not included)... Normal [facility] Urine Cultureon 12-06-2023 URC Klebsiella pneumonia e sp pneum [place] Count >100,000 Klebsiella pneumoniae sp pneum: REACTION Ampicillin Islt ARIELLA >=32 R Ampicillin+Sulbac Islt ARIELLA 4 S ceFAZolin Islt ARIELLA <=4 S Cefepime Islt ARIELLA <=0.12 S cefTRIAXone Islt ARIELLA <=0.25 S Ciprofloxacin Islt ARIELLA 0.5 S Ertapenem Islt ARIELLA <=0.12 S B-Lactamase Extended Susc Islt NEG Gentamicin Islt ARIELLA <=1 S Imipenem Islt ARIELLA <=0.25 S levoFLOXacin Islt ARIELLA 1 S Nitrofurantoin Islt ARIELLA 256 R Pip+Tazo Islt ARIELLA 8 S Tobramycin Islt ARIELLA <=1 S TMP SMX Islt ARIELLA 40 S Normal [facility] Comment on above: Performed By: #### M 100.2200, L400.0001 #### [facility] [address] [place], [place], [id number] TSH SerPl-aCncon 12-04-2023 TSH Qn 1.620 m[IU]/L Normal 0.270-4.200 [facility] Comment on above: Order Comment: Speci men Type: BLOOD SPECIMENOrdering Facility: [facility] Address: [address] [place] [address] Performed By: #### 3 [id number] ####[facility] LABCLIA [id number] [place] [address] [place] Urgent Care Visit Reporton 0 12-04-2023 Urgent Care Visit Report [facility] [address], [address] [place], [place] [address] OFFICE VISIT Date of Service: 12/04/23 MR#: [id number] Acct: [id number] Name: KENDAL TAYLOR Rep #: [id number] : 1940 Provider: KOREY Judd Age/Sex: 83/F Location: [facility] Status: Signed Intake Vital Signs 09/18/23 08:02 12/04/23 09:57 Height 4 ft 11 in 4 ft 11 in Weight: 160 lb BMI 32.3 BP 132/78 H Blood Pressure Location Lt brachial Position Sitting Respiration 16 Pulse 112 H Pulse Source Monitor Temp 98.5 F Temp Source Temporal Pulse Oximetry (%) 98 Oxygen Delivery Method room air Intake Visit Reasons: uti Chief Complaint: dysuria Bench Shear Operator Required: No Accompanied by: Self Is patient in pain?: Yes Allergies albuterol Allergy (Verified 12/04/23 09:58) Unknown amoxicillin Allergy (Verified 12/04/23 09:58) Hives Penicillins Allergy (Verified 12/04/23 09:58) Hives sulfamethoxazole (From Bactrim) Allergy (Verified 12/04/23 09:58) Hives trimethoprim (From Bactrim) Allergy (Verified 12/04/23 09:58) Hives Medications ???Medication ???Instructions ???Recorded ???Confirmed ???Type cholecalciferol (vitamin D3) 125 125 mcg PO DAILY 08/28/22 12/04/23 History mcg (5,000 unit) capsule coq10 1 tab PO 1XD 08/28/22 12/04/23 History fremanezumab-vfrm 225 mg/1.5 mL 225 mg subcut QMONTH 08/28/22 12/04/23 History subcutaneous auto-injector (Ajovy) ketonazole shampoo 1 applic topical 1XD PRN dry skin 08/28/22 12/04/23 History magnesium 250 mg tablet See Rx Instructions PO DAILY 08/28/22 12/04/23 History methocarbamol 750 mg tablet 750 mg PO .COMPLEX PRN pain 08/28/22 12/04/23 History riboflavin (vitamin B2) 100 mg 100 mg PO BID 08/28/22 12/04/23 History tablet rizatriptan 10 mg tablet See Rx Instructions PO .COMPLEX 08/28/22 12/04/23 History triamcinolone acetonide 0.1 % 1 applic topical BID #30 grams 09/11/22 12/04/23 Rx topical cream diclofenac sodium 1 % topical gel 2 g topical BID PRN Osteoarthritis 09/30/22 12/04/23 Rx #100 grams diphenoxylate-atropin e 2.5 1 tab PO BID PRN diarrhea #30 tabs 01/22/24 08/08/24 Rx mg-0.025 mg tablet meclizine 12.5 mg tablet 12.5 mg PO BID-QID PRN motion 05/19/23 12/04/23 Rx sickness #30 tabs sucralfate 1 gram tablet 1 g PO BID #180 tabs 05/19/23 12/04/23 Rx colestipol 1 gram tablet 1 g PO TID #270 tabs 05/26/23 12/04/23 Rx lisinopril 10 1 tab PO DAILY #90 tabs 09/18/23 12/04/23 Rx mg-hydrochlorothiazid e 12.5 mg tablet omeprazole 20 mg capsule,delayed 20 mg PO DAILY #90 caps 09/18/23 12/04/23 Rx release stricton BP PO 09/18/23 12/04/23 History nitrofurantoin 1 cap PO Q12H 7 days #14 caps 12/04/23 12/04/23 Rx monohydrate/macrocrys tals 100 mg capsule Have you fallen in the past year?: No PFSH Medical History Wears hearing aid Wears glasses MRSA infection History of IBS Non-smoker CPAP (continuous positive airway pressure) dependence Sleep apnea History of echocardiogram Heart murmur Chronic GERD Osteoarthritis IBS (irritable bowel syndrome) Recurrent infections High cholesterol Hearing problem UTI (urinary tract infection) Degenerative disc disease GERD (gastroesophageal reflux disease) Hypertension Migraines Surgical History History of knee replacement ( 2013) History of bladder surgery ( 2003) FH: cholecystectomy Bunion ( 1988) H/O: hysterectomy ( 1980) Family History Mother Hypertension Arthritis Bowel disease Myocardial infarction, Onset Age: 70 Age related osteoporosis Father Diabetes Myocardial infarction, Onset Age: 50 Social History adopted: No household members: spouse housing: house number of children: 6 current occupational status: employed current occupation: [employer] current occupational exposures/hazards: No pets and animals: Yes pets and animals: cat(s) leisure activities: exercise, reading and other history of recent travel: No sexually active: No Smoking Status: Never smoker alcohol intake: never substance use type: does not use well-balanced diet: daily or most days caffeine: No eating out: rarely or never during the past year weight has: increased > 10 lbs what type of physical activity do you participate in: walking and aerobics brenda/episcopal: Worship seatbelt use: always do you feel safe at home: Yes HPI HPI Chief Complaint: dysuria Details: KENDAL TAYLOR, is a 83 F who presents to the office today for complaint of dysuria. Patient denies fever, chills, sweats. No nausea, vomiting or diarrhea. She states t (more content not included)... Normal [facility] Urinalysis, Completeon 12-03 BACTERIA 2+ /hpf Normal None Seen [facility] Comment on above: Order Comment: BREEZY CTOR TO SPECIFY Performed By: #### M 100.2200, L400.0001 #### [facility] [address] [place], [address] EPI,SQUAMOUS 5-10 SEEN Normal 5-10 [facility] Comment on above: Order Comment: BREEZY CTOR TO SPECIFY Performed By: #### M 100.2200, L400.0001 #### [facility] [address] [place], [address] WBC >100 SEEN Normal 0-5 [facility] Comment on above: Order Comment: BREEZY CTOR TO SPECIFY Performed By: #### M 100.2200, L400.0001 #### [facility] [address] [place], [address] Mucus Ql (Urine sed) 0 SEEN Normal [facility] Comment on above: Order Comment: BREEZY CTOR TO SPECIFY Performed By: #### M 100.2200, L400.0001 #### [facility] [address] [place], [address] RBC 0 SEEN Normal 0-5 [facility] Comment on above: Order Comment: BREEZY CTOR TO SPECIFY Performed By: #### M 100.2200, L400.0001 #### [facility] [address] [place], [address] [facility] 11-24-2023 CNOV Office Visit (AGCARDPOB) KENDAL TAYLOR ([id number]) 1940 F Date Time Provider Department 11/24/23 3:20 PM VALERIE KOTHARI AGCARDPOMark During your visit today, we recorded the following information about you: Pulse Blood pressure Weight Height 93/minute 158/91 76.2 kg 1.499 m Hamida Valdez MA 11/24/2023 4:55 PM Signed Patient has been experiencing SOB, leg swelling and fatigue. aVlerie Kothari MD 11/24/2023 3:58 PM Signed Coronary Artery Disease View image View image What is coronary artery disease? Coronary artery disease (CAD) is a type of heart disease caused by a problem with the blood vessels that bring blood and oxygen to the heart muscle. These arteries are called the coronary arteries. This disease increases your risk for heart attack and sudden . What is the cause? Fatty deposits called plaque may build up in blood vessels and make them narrower. The narrowing decreases the amount of blood flow to the heart. Plaque also increases the chance that blood clots may form and block a blood vessel, which can cause a heart attack or stroke. Your risk for CAD may be higher if you: Have a family history of coronary artery disease at an early age Smoke Have high blood pressure Have diabetes Are very overweight Don?t get enough exercise Have high levels of blood fat--for example, high cholesterol What are the symptoms? Coronary artery disease may not cause any symptoms. When there are symptoms, the most common one is chest pain, called angina. You may feel: A feeling of tightness or heaviness in the chest Squeezing, pressure, or burning in the chest Angina symptoms usually: Last for 5 minutes or less and go away with rest or medicine such as nitroglycerin. Happen when the heart has to work harder, such as after a heavy meal or during physical activity or emotional stress. Angina may also happen when you are resting. Call 911 for emergency help right away if you have symptoms of a heart attack. The most common symptoms include: Chest pain or pressure, squeezing, or fullness in the center of your chest that lasts more than a few minutes, or goes away and comes back (may feel like indigestion or heartburn) Pain or discomfort in one or both arms or shoulders, or in your back, neck, jaw, or stomach Trouble breathing Breaking out in a cold sweat for no known reason If your provider has prescribed nitroglycerin for angina, pain that does not go away after taking your nitroglycerin as directed Along with these symptoms, you may also feel very tired, faint, or be sick to your stomach. How is it diagnosed? Your healthcare provider will ask about your symptoms and medical history and examine you. Tests may include: Blood tests An ECG (also called an EKG or electrocardiogram), which measures and records your heartbeat. An exercise treadmill test to see how your heart works when you exercise An echocardiogram, which uses sound waves (ultrasound) to see how well your heart is pumping Angiogram, which is a series of X-rays taken after your healthcare provider injects a special dye into your blood vessels to show the suero of the arteries and any blockage CT scan, which uses X-rays and a computer to show detailed pictures of the arteries How is it treated? Your treatment depends on many factors, such as your age, heart muscle function, and other health problems. At first, treatment may include diet changes and an exercise program. Your healthcare provider may prescribe medicine. Many people need to take 2 or more medicines to help prevent a heart attack or stroke. It may take several weeks or months to find the best treatment for you. Your provider may also prescribe other types of medicine to lower blood pressure, help stop chest pain, control an irregular heartbeat, help prevent blood clots, or lower blood fat (cholesterol). Your provider may recommend a daily low dose of aspirin. Taking an aspirin every day may lower your risk for a heart attack or stroke. Not everyone should take aspirin. Daily use of aspirin can cause problems, such as stomach irritation, bleeding, and hearing loss. Ask your healthcare provider if you should take aspirin and if so, how much to take. If your coronary arteries are badly blocked, you may need balloon angioplasty or bypass surgery. A balloon angioplasty opens blocked blood vessels and improves blood flow. A metal mesh device called a stent is usually left in the blood vessels to help keep them open. Bypass surgery uses blood vessels from other parts of the body, or manmade material, to make a new path around a blocked area. How can I take care of myself? If you have coronary artery disease, there are things you can do to take care of yourself now and prevent problems in the future. Follow your provider's (more content not included)... Normal [facility]gent Care Visit Reporton 0 10-24-2023 Urgent Care Visit Report [facility] [address], [address] [place] [address] OFFICE VISIT Date of Service: 10/24/23 MR#: [id number] Acct: [id number] Name: KENDAL TAYLOR Rep #: [id number] : 1940 Provider: KOREY Judd Age/Sex: 83/F Location: [facility] Status: Signed Intake Vital Signs 09/18/23 08:02 10/24/23 14:25 Height 4 ft 11 in Weight: 172 lb BMI 34.7 BP 148/85 H 130/82 H Blood Pressure Location Lt brachial Lt brachial Position Sitting Sitting Respiration 16 17 Pulse 98 92 Pulse Source Monitor NIBP Temp 98.4 F 98.6 F Temp Source Temporal Temporal Pulse Oximetry (%) 94 97 Oxygen Delivery Method room air room air Intake Visit Reasons: POSSIBLE SINUS INFECTION Chief Complaint: chest congestion, cough, grn mucus Bench Shear Operator Required: No Is patient in pain?: No Allergies albuterol Allergy (Verified 10/24/23 14:26) Unknown amoxicillin Allergy (Verified 10/24/23 14:26) Hives Penicillins Allergy (Verified 10/24/23 14:26) Hives sulfamethoxazole (From Bactrim) Allergy (Verified 10/24/23 14:26) Hives trimethoprim (From Bactrim) Allergy (Verified 10/24/23 14:26) Hives Is last menstrual period known: No Post menopausal: Yes Patient : No Have you fallen in the past year?: No Nurse's Note: chest congestion, cough, grn mucus x 2 weeks. upper body is sore from coughing. [facility] Medical History Wears hearing aid Wears glasses MRSA infection History of IBS Non-smoker CPAP (continuous positive airway pressure) dependence Sleep apnea History of echocardiogram Heart murmur Chronic GERD Osteoarthritis IBS (irritable bowel syndrome) Recurrent infections High cholesterol Hearing problem UTI (urinary tract infection) Degenerative disc disease GERD (gastroesophageal reflux disease) Hypertension Migraines Surgical History History of knee replacement ( 2013) History of bladder surgery ( 2003) FH: cholecystectomy Bunion ( 1988) H/O: hysterectomy ( 1980) Family History Mother Hypertension Arthritis Bowel disease Myocardial infarction, Onset Age: 70 Age related osteoporosis Father Diabetes Myocardial infarction, Onset Age: 50 Social History adopted: No household members: spouse housing: house number of children: 6 current occupational status: employed current occupation: [employer] current occupational exposures/hazards: No pets and animals: Yes pets and animals: cat(s) leisure activities: exercise, reading and other history of recent travel: No sexually active: No Smoking Status: Never smoker alcohol intake: never substance use type: does not use well-balanced diet: daily or most days caffeine: No eating out: rarely or never during the past year weight has: increased > 10 lbs what type of physical activity do you participate in: walking and aerobics brenda/episcopal: Worship seatbelt use: always do you feel safe at home: Yes HPI HPI Chief Complaint: chest congestion, cough, grn mucus Details: KENDAL TAYLOR, is a 83 F who presents to the office today for complaint of sinus congestion/pressure and pain as well as chest congestion and cough. Patient states that her cough has been interrupting her sleep. She denies fever, chills, sweats. No nausea, vomiting or diarrhea. No hemoptysis, shortness of breath or difficulty breathing. No loss of taste or smell. No other associated symptoms or alleviating/aggravati ng factors. ROS Const Constitutional: Positive for other (ROS negative x 6 except what is described above) Exam Const General: cooperative and healthy appearing HENMT Head: normal to inspection Ears: hearing grossly normal bilaterally, TM's normal bilaterally and EAC's normal Nose: nasal discharge purulent Face and sinus: sinus tenderness frontal and maxillary Mouth: oral mucosae normal Throat: abnormal tonsil bilaterally erythema and hypertrophy 1+ and postnasal drainage Resp Effort Inspection: normal respiratory effort Auscultation: Bilateral: Clear to Auscultation Cardio Palpation: normal PMI Rate: regular rate Rhythm: regular rhythm Neuro General: patient alert and CN's II-XI intact bilaterally Psych Appearance: grossly normal Mental Status: mental status grossly normal Coding Level of Care Code Off vis,est,level 3 Diagnoses Acute sinusitis J01.90 Assessment and Plan Assessment and Plan (1) Acute sinusitis: Status: Acute Plan: Doxycycline and benzonatate as prescribed today. Encouraged to get plenty of rest, drink lots of clear liquids, (more content not included)... Normal [facility] Echo Completeon 10-20-2023 Echo Complete [facility] [address] [place] [address] Echo Complete 10/20/23 0818 MR#: [id number] Acct: [id number] Name: KENDAL TAYLOR Rep #: [id number] : 1940 83 From: Dulce Chapman MD Attending Dr: Dr. Santa Sethi MD Status: RE G CLI Ordering Dr: Santa Sethi MD Date: 10/20/23 Location: [facility] Sex: F C Admitted: Reason For Study: Dyspnea Procedure This was a 2D Doppler, Color Flow transthoracic echocardiogram. Exam performed in department. Left Ventricle Normal size and thickness. The left ventricular ejection fraction is 65 %. Normal diastology for age. Right Ventricle Normal right ventricle. Atria The left and right atria are normal. Bubble contrast study is negative for PFO/ASD. Aneurysmal atrial septum. Mitral Valve Mild mitral annular calcification. Mild (1+) mitral valve insufficiency. Tricuspid Valve Trivial tricuspid valve insufficiency. Normal pulmonary artery pressure. Aortic Valve Mild diffuse aortic valve calcification. Mild aortic stenosis. Trivial aortic valve insufficiency. Pulmonic Valve The pulmonic valve is not well visualized. Great Vessels Normal sized aortic root. Pericardium/Pleural No pericardial effusion. Medication 22 gauge I.V. with prn adaptor inserted into right arm. Performed a rapid injection of agitated mix of 9 cc saline and 1cc air to assess for atrial septal defect. MMode/2D Measurements Calculations LVIDd: 5.0 cm IVSd: 0.70 cm LVOT diam: 2.0 cm LVIDs: 3.0 cm LVPWd: 0.71 cm RVDd: 3.2 cm FS: 39.6 % LVOT area: 3.0 cm2 Ao root diam: 3.1 cm LAV(MOD-bp): 50.5 ml LVAd ap4: 19.3 cm2 ACS: 1.2 cm LAV(MOD-bp) Indexed: 30.1 ml/m2 LVLd ap4: 6.7 cm LA dimension: 3.4 cm LAV(MOD-sp2): 52.1 ml EDV(MOD-sp4): 45.6 ml LAV(MOD-sp4): 47.6 ml EDV(sp4-el): 47.4 ml LVAs ap4: 10.7 cm2 LVLs ap4: 5.7 cm ESV(MOD-sp4): 18.3 ml ESV(sp4-el): 17.0 ml EF(MOD-sp4): 59.9 % EF(sp4-el): 64.1 % SV(MOD-sp4): 27.3 ml SV(sp4-el): 30.4 ml LA A4 area: 18.1 cm2 RA A4 area: 14.8 cm2 TAPSE: 1.8 cm Time Measurements MV dec time: 0.17 sec Doppler Measurements Calculations MV E max alem: 87.6 cm/sec Lat Peak E' Alem: 9.2 cm/sec Med Peak E' Alem: 7.3 cm/sec MV A max alem: 92.5 cm/sec E/E' lat: 9.6 E/E' med: 12.0 MV E/A: 0.95 MV V2 max: 98.8 cm/sec MV P1/2t max alem: 95.7 cm/sec Ao V2 max: 234.1 cm/sec MV max P.9 mmHg MV P1/2t: 60.2 msec Ao max P.0 mmHg MV V2 mean: 61.7 cm/sec MV dec slope: 465.6 cm/sec2 Ao V2 mean: 162.3 cm/sec MV mean P.8 mmHg MVA(P1/2t): 3.7 cm2 Ao mean P.0 mmHg MV V2 VTI: 26.8 cm Ao V2 VTI: 56.1 cm MVA(VTI): 3.1 cm2 AV (velocity ratio): 0.49 HAYDEE(I,D): 1.5 cm2 HAYDEE(V,D): 1.5 cm2 AI max alem: 378.5 cm/sec LV V1 max: 113.2 cm/sec SV(LVOT): 83.5 ml AI max P.4 mmHg LV V1 max P.1 mmHg LV V1 mean P.0 mmHg AI dec slope: 253.6 cm/sec2 LV V1 mean: 82.5 cm/sec AI P1/2t: 437.1 msec LV V1 VTI: 27.7 cm PA V2 max: 97.5 cm/sec TR max alem: 185.0 cm/sec PA max PG (full): 1.9 mmHg TR max P.7 mmHg PA V2 mean: 72.1 cm/sec PA mean PG (full): 1.1 mmHg ECHO/Echo Complete Interpretation Summary The left ventricular ejection fraction is 65 %. Mild mitral annular calcification. Aneurysmal atrial septum. Bubble contrast study is negative for PFO/ASD. Mild (1+) mitral valve insufficiency. Mild aortic stenosis. Ordering Physician: Santa Sethi Performed By: Ned Colbert RCS 10/20/23 1024 Date Dulce Chapman MD CC: Dr. Santa Setih MD Date Dictated: 10/20/23817 Date Transcribed: 10/20/23 1024 Ripsaw Matcher: Signed Normal [facility] Culture, urineOrdered By: Toya Hui on 07-05-2023 Bacteria identified Cx Nom (U) Mixed Gram Pos & Gram Neg Org [facility] Laboratory - Chemistry and C hemistry - challengeon 07-05-2023 Bilirubin Ql (U) Negative [facility] Glucose Ql (U) Negative [facility] Ketones Ql (U) Negative [facility] pH (U) 5.0 [pH] [facility] Specific gravity (U) [Rel density] 1.010 [facility] Urobilinogen (U) [Mass/Vol] Negative [facility] Laboratory - Hematology and Cell countson 07-05-2023 Hemoglobin Ql (U) Negative [facility] Laboratory - Specimen inform ationon 07-05-2023 Clarity (U) Clear [facility] Color (U) Dk Yellow [facility] Laboratory - Urinalysison Nitrite Ql (U) Negative [facility] Protein Ql (U) Negative [facility] No Panel Informationon 07-04 Urine Leukocytes Positive [facility] Urine Non-Hemolyzed Blood Negative [facility] Absolute lymphocyte countOrd ered By: Santa Sethi on 07-01-2023 Lymphocytes Auto (Unsp spec) [#/Vol] 2.47 10*3/uL 0.83-4.51 [facility] Automated lymphocyte count a s percentage of total leukocytesOrdered By: Santa Sethi on 07-01-2023 Lymphocytes/100 WBC Auto (Unsp spec) 27.1 % 19-41 [facility] Basophil percentageOrdered B y: Santa Sethi on 07-01-2023 Basophils/100 WBC (Bld) 0.5 % 0-1 [facility] Bilirubin [Mass/Vol] 0.30 mg/dL 0.20-1.00 [facility] Comment on above: For patients on eltr ombopag therapy, use of Dimension Otto TBIL is not recommended. Chloride [Moles/Vol] 105 mmol/L 98-107 [facility] Eosinophils/100 WBC (Bld) 3.1 % 0-5 [facility] Glucose [Mass/Vol] 97 mg/dL 74-106 [facility] Hemoglobin (Bld) [Mass/Vol] 12.8 g/dL 12.0-15.0 [facility] Monocytes/100 WBC (Bld) 9.1 % 0-10 [facility] Neutrophils (Bld) [#/Vol] 5.5 10*3/uL 2.0-7.7 [facility] Neutrophils/100 WBC (Bld) 60.0 % 47-70 [facility] Potassium [Moles/Vol] 3.5 mmol/L 3.5-5.1 [facility] Protein [Mass/Vol] 7.4 g/dL 6.4-8.2 [facility] Sodium [Moles/Vol] 142 mmol/L 136-145 [facility] WBC (Bld) [#/Vol] 9.1 10*3/uL 4.4-11.0 [facility] Determination of erythrocyte mean corpuscular volume (MCV)Ordered By: Santa Sethi on 07-01-2023 MCV (RBC) [Entitic vol] 91.1 fL 81-99 [facility] Erythrocyte distribution wid th ratioOrdered By: Santa Sethi on 07-01-2023 Erythrocyte distribution width (RBC) [Ratio] 13.0 % 11.6-14.6 [facility] Erythrocyte distribution wid th standard deviationOrdered By: Santa Sethi on 07-01-2023 Erythrocyte distribution width (RBC) [Entitic vol] 43.2 fL 35.1-43.9 [facility] Erythrocyte sedimentation ra teOrdered By: Santa Sethi on 07-01-2023 ESR (Bld) [Velocity] 7 mm/h 0-30 [facility] Hematocrit Auto (Bld) [Volum e fraction]Ordered By: Santa Sethi on 07-01-2023 Hematocrit (Bld) [Volume fraction] 39.1 % 37-47 [facility] Immature granulocytes/100 WB C Auto (Bld)Ordered By: Santa Sethi on 07-01-2023 Immature granulocytes/100 WBC (Bld) 0.200 % 0.0-0.9 [facility] Comment on above: IG% - Immature Granu locytes (promyelocytes, myelocytes and metamyelocytes) > 1% indicates that a LEFT SHIFT is Present. Laboratory - Chemistry and C hemistry - challengeOrdered By: Santa Sethi on 07-01-2023 Albumin/Globulin [Mass ratio] 0.9 {ratio} 0.9-2.4 [facility] ALP [Catalytic activity/Vol] 96 U/L 45-117 [facility] ALT [Catalytic activity/Vol] 31 U/L 13-56 [facility] CO2 [Moles/Vol] 28.0 mmol/L 21.0-32.0 [facility] Cobalamin (Vitamin B12) [Mass/Vol] 611 pg/mL 211-911 [facility] Globulin (S) [Mass/Vol] 3.8 g/dL 2.2-4.2 [facility] Urea nitrogen/Creatinine [Mass ratio] 22.0 mg/mg 10-20 [facility] Laboratory - Hematology and Cell countsOrdered By: Santa Sethi on 07-01-2023 MCH (RBC) [Entitic mass] 29.8 pg 27.0-32.0 [facility] MCHC (RBC) [Mass/Vol] 32.7 g/dL 32-36 [facility] Nucleated RBC/100 WBC (Bld) [Ratio] 0 % 0-5 [facility] Platelet mean volume (Bld) [Entitic vol] 10.0 fL 6.2-12.0 [facility] Platelets (Bld) [#/Vol] 263 10*3/uL 150-450 [facility] No Panel InformationOrdered By: Santa Sethi on 07-01-2023 Estimated GFR (MDRD) Amer 68 mL/min >60 [facility] Comment on above: GFR Calc Estimated GFR (MDRD) Non-Af Amer 57 mL/min >60 [facility] Comment on above: Non- GFR Calc Free Triiodothyronine (T3) pg/dL 3.2 pg/mL 2.18-3.98 [facility] RBC Auto (Bld) [#/Vol]Ordere d By: Santa Sethi on 07-01-2023 RBC (Bld) [#/Vol] 4.29 10*6/uL 4.2-5.4 [facility] Serum or plasma calcium toma urement (mass/volume)Ordered By: Santa Sethi on 07-01-2023 Calcium [Mass/Vol] 9.1 mg/dL 8.5-10.1 [facility] Serum or plasma creatinine m easurement (mass/volume)Ordered By: Santa Sethi on 07-01-2023 Creatinine [Mass/Vol] 1.00 mg/dL 0.55-1.02 [facility] Comment on above: The validity of the calculated GFR & GFRAA in patients over 70 years has not been determined. Clinical correlation is essential. Serum or plasma thyroid stim ulating hormone (TSH) measurement (units/volume)Ordered By: Santa Sethi on 07-01-2023 TSH Qn 1.28 uIU/mL 0.358-3.74 [facility] Serum or plasma urea nitroge n measurement (mass/volume)Ordered By: Santa Sethi on 07-01-2023 Urea nitrogen [Mass/Vol] 22 mg/dL 7-18 [facility] Thin prep Papanicolaou smear with manual screeningOrdered By: Santa Sethi on 07-01-2023 Thin prep Papanicolaou smear with manual screening 3.6 g/dL 3.2-5.0 [facility] Thin prep Papanicolaou smear with manual screening 28 U/L 15-37 [facility] Thin prep Papanicolaou smear with manual screening 9 5-15 [facility] Thin prep Papanicolaou smear with manual screening 0.95 ng/dL 0.76-1.46 [facility] Absolute lymphocyte countOrd ered By: Xavier Cherry on 06-04-2023 Lymphocytes Auto (Unsp spec) [#/Vol] 2.20 10*3/uL 0.83-4.51 [facility] Automated lymphocyte count a s percentage of total leukocytesOrdered By: Xavier Cherry on 06-04-2023 Lymphocytes/100 WBC Auto (Unsp spec) 23.5 % 19-41 [facility] Basophil percentageOrdered B y: Xavier Cherry on 06-04-2023 Basophil percentage >100 SEEN /hpf 0-5 [facility] Basophils/100 WBC (Bld) 0.5 % 0-1 [facility] Bilirubin [Mass/Vol] 0.30 mg/dL 0.20-1.00 [facility] Comment on above: For patients on eltr ombopag therapy, use of Dimension Otto TBIL is not recommended. Chloride [Moles/Vol] 108 mmol/L 98-107 [facility] Eosinophils/100 WBC (Bld) 3.0 % 0-5 [facility] Glucose [Mass/Vol] 98 mg/dL 74-106 [facility] Hemoglobin (Bld) [Mass/Vol] 13.1 g/dL 12.0-15.0 [facility] Monocytes/100 WBC (Bld) 7.9 % 0-10 [facility] Neutrophils (Bld) [#/Vol] 6.1 10*3/uL 2.0-7.7 [facility] Neutrophils/100 WBC (Bld) 64.8 % 47-70 [facility] Potassium [Moles/Vol] 3.7 mmol/L 3.5-5.1 [facility] Protein [Mass/Vol] 7.8 g/dL 6.4-8.2 [facility] Sodium [Moles/Vol] 138 mmol/L 136-145 [facility] WBC (Bld) [#/Vol] 9.4 10*3/uL 4.4-11.0 [facility] Culture, urineOrdered By: Do al Cherry on 06-04-2023 Bacteria identified Cx Nom (U) Culture exhibits no growth. [facility] Determination of erythrocyte mean corpuscular volume (MCV)Ordered By: Xavier Cherry on 06-04-2023 MCV (RBC) [Entitic vol] 90.9 fL 81-99 [facility] Erythrocyte distribution wid th ratioOrdered By: Xavier Cherry on 06-04-2023 Erythrocyte distribution width (RBC) [Ratio] 12.5 % 11.6-14.6 [facility] Erythrocyte distribution wid th standard deviationOrdered By: Xavier Cherry on 06-04-2023 Erythrocyte distribution width (RBC) [Entitic vol] 41.3 fL 35.1-43.9 [facility] Hematocrit Auto (Bld) [Volum e fraction]Ordered By: Xavier Cherry on 06-04-2023 Hematocrit (Bld) [Volume fraction] 39.1 % 37-47 [facility] Immature granulocytes/100 WB C Auto (Bld)Ordered By: Xavier Cherry on 06-04-2023 Immature granulocytes/100 WBC (Bld) 0.300 % 0.0-0.9 [facility] Comment on above: IG% - Immature Granu locytes (promyelocytes, myelocytes and metamyelocytes) > 1% indicates that a LEFT SHIFT is Present. Laboratory - Chemistry and C hemistry - challengeOrdered By: Xavier Cherry on 06-04-2023 Albumin/Globulin [Mass ratio] 0.9 {ratio} 0.9-2.4 [facility] ALP [Catalytic activity/Vol] 87 U/L 45-117 [facility] ALT [Catalytic activity/Vol] 32 U/L 13-56 [facility] CO2 [Moles/Vol] 24.0 mmol/L 21.0-32.0 [facility] Globulin (S) [Mass/Vol] 4.2 g/dL 2.2-4.2 [facility] Lipase [Catalytic activity/Vol] 30 U/L 13-75 [facility] Comment on above: Please note:LIPASE r evised reference range effective 22. New Lipase methodology. Expected to produce lower values than the previous assay method. NEW Reference Range: 13 - 75 U/L Urea nitrogen/Creatinine [Mass ratio] 20.5 mg/mg 10-20 [facility] Laboratory - Chemistry and C hemistry - challengeon 06-04-2023 Glucose Ql (U) Negative [facility] Urobilinogen (U) [Mass/Vol] 1 mg/dL [facility] Laboratory - Hematology and Cell countsOrdered By: Xavier Cherry on 06-04-2023 MCH (RBC) [Entitic mass] 30.5 pg 27.0-32.0 [facility] MCHC (RBC) [Mass/Vol] 33.5 g/dL 32-36 [facility] Nucleated RBC/100 WBC (Bld) [Ratio] 0 % 0-5 [facility] Platelet mean volume (Bld) [Entitic vol] 9.5 fL 6.2-12.0 [facility] Platelets (Bld) [#/Vol] 249 10*3/uL 150-450 [facility] Laboratory - Hematology and Cell countson 06-04-2023 Hemoglobin Ql (U) Negative [facility] Laboratory - Specimen inform ationon 06-04-2023 Clarity (U) Clear [facility] Laboratory - Urinalysison Protein Ql (U) Negative [facility] Mucus LM Ql (Urine sed)Order ed By: Xavier Cherry on 06-04-2023 Mucus Ql (Urine sed) 0 SEEN /hpf [facility] Nitrite ur dipstickOrdered B y: Xavier Cherry on 06-04-2023 Nitrite Ql (U) Negative [facility] No Panel InformationOrdered By: Xavier Cherry on 06-04-2023 Urine RBC 0 SEEN /hpf 0-5 [facility] Estimated Creatinine Clearance Calc 33.45 ml/min [facility] Estimated GFR (MDRD) Amer 57 mL/min >60 [facility] Comment on above: GFR Calc Estimated GFR (MDRD) Non-Af Amer 47 mL/min >60 [facility] Comment on above: Non- GFR Calc No Panel Informationon 06-04 Urine Leukocytes Positive [facility] Urine Non-Hemolyzed Blood [facility] Protein Test strip Ql (U)Ord ered By: Xavier Cherry on 06-04-2023 Protein Ql (U) 15 mg/dl Negative [facility] RBC Auto (Bld) [#/Vol]Ordere d By: Xavier Cherry on 06-04-2023 RBC (Bld) [#/Vol] 4.30 10*6/uL 4.2-5.4 [facility] Serum or plasma calcium toma urement (mass/volume)Ordered By: Xavier Cherry on 06-04-2023 Calcium [Mass/Vol] 9.3 mg/dL 8.5-10.1 [facility] Serum or plasma creatinine m easurement (mass/volume)Ordered By: Xavier Cherry on 06-04-2023 Creatinine [Mass/Vol] 1.17 mg/dL 0.55-1.02 [facility] Comment on above: The validity of the calculated GFR & GFRAA in patients over 70 years has not been determined. Clinical correlation is essential. Serum or plasma urea nitroge n measurement (mass/volume)Ordered By: Xavier Cherry on 06-04-2023 Urea nitrogen [Mass/Vol] 24 mg/dL 7-18 [facility] Squamous epithelial cells de tection in urine sediment by light microscopyOrdered By: Xavier Cherry on 06-04-2023 Epithelial cells.squamous LM Ql (Urine sed) 0-5 SEEN /hpf 5-10 [facility] Thin prep Papanicolaou smear with manual screeningOrdered By: Xavier Cherry on 06-04-2023 Thin prep Papanicolaou smear with manual screening 3.6 g/dL 3.2-5.0 [facility] Thin prep Papanicolaou smear with manual screening 22 U/L 15-37 [facility] Thin prep Papanicolaou smear with manual screening 6 5-15 [facility] Urine blood detectionOrdered By: Xavier Cherry on 06-04-2023 RBC Ql (U) 10 /ul Negative [facility] Urine clarityOrdered By: Paddy Cherry on 06-04-2023 Clarity (U) Sl. Cloudy Clear [facility] Urine color determinationOrd ered By: Xavier Cherry on 06-04-2023 Color (U) Yellow [facility] Urine glucose detectionOrder ed By: Xavier Cherry on 06-04-2023 Glucose Ql (U) Normal mg/dl Normal [facility] Urine ketones detection by t est stripOrdered By: Xavier Cherry on 06-04-2023 Ketones Ql (U) Negative [facility] Urine leukocyte esterase det ection by dipstickOrdered By: Xavier Cherry on 06-04-2023 Leukocyte esterase Test strip Ql (U) 500 /ul Negative [facility] Urine pHOrdered By: Xavier oneill on 06-04-2023 pH (U) 6.0 [pH] [facility] Urine sediment bacteria coun t by microscopy (number/high power field)Ordered By: Xavier Cherry on 06-04-2023 Bacteria LM.HPF (Urine sed) [#/Area] RARE /hpf None Seen [facility] Urine specific gravity measu rementOrdered By: Xavier Cherry on 06-04-2023 Specific gravity (U) [Rel density] 1.010 [facility] Urine total bilirubin detect ion by test stripOrdered By: Xavier Cherry on 06-04-2023 Bilirubin Ql (U) Negative [facility] Urine urobilinogen measureme ntOrdered By: Xavier Cherry on 06-04-2023 Urobilinogen Ql (U) Normal mg/dl Normal [facility] UA DIP, URINE (POC)on 2022 BILIRUBIN UA (POCT) Negative Negative [facility] CLARITY UA (POCT) Clear [facility] COLOR UA (POCT) Yellow [facility] GLUCOSE UA (POCT) Negative Negative mg/dL [facility] Hemoglobin Ql (U) Trace-intact Abnormal Negative [facility] KETONE UA (POCT) Negative Negative mg/dL [facility] LEUKOCYTES UA (POCT) Small Abnormal Negative [facility] NITRITE UA (POCT) Negative Negative [facility] [place] PH UA (POCT) 5.5 4.5 - 8.0 [facility] Protein Ql (U) Negative Negative mg/dL [facility] SPECIFIC GRAVITY UA (POCT) 1.010 1.005 - 1.030 [facility] UROBILINOGEN UA (POCT) 0.2 E.U./dL Chanel l E.U./dL [facility] Absolute lymphocyte countOrd ered By: Dr. Sethi on 10-08-2022 Lymphocytes Auto (Unsp spec) [#/Vol] 2.11 10*3/uL 0.83-4.51 [facility] Basophil percentageOrdered B y: Dr. Sethi on 10-08-2022 Basophils/100 WBC (Bld) 0.7 % 0-1 [facility] Bilirubin [Mass/Vol] 0.40 mg/dL 0.20-1.00 [facility] Comment on above: For patients on eltr ombopag therapy, use of Dimension Otto TBIL is not recommended. Chloride [Moles/Vol] 108 mmol/L 98-107 [facility] Cholesterol [Mass/Vol] 189 mg/dL <200 [facility] Comment on above: <200 mg/dL Desirable 200-240 mg/dL Borderline >240 mg/dL High Risk Eosinophils/100 WBC (Bld) 3.3 % 0-5 [facility] Glucose [Mass/Vol] 88 mg/dL 74-106 [facility] Neutrophils (Bld) [#/Vol] 3.9 10*3/uL 2.0-7.7 [facility] Neutrophils/100 WBC (Bld) 56.6 % 47-70 [facility] Potassium [Moles/Vol] 4.2 mmol/L 3.5-5.1 [facility] Protein [Mass/Vol] 7.4 g/dL 6.4-8.2 [facility] Sodium [Moles/Vol] 141 mmol/L 136-145 [facility] Triglyceride [Mass/Vol] 93 mg/dL <199 [facility] Comment on above: The drugs N-Acetylcy steine and Metamizole may falsely depress this assay.Serum Triglycerides Reference Interval Normal <150 mg/dL Borderline high 150 - 199 mg/dL High 200 - 499 mg/dL Very High > or = 500 mg/dL WBC (Bld) [#/Vol] 6.9 10*3/uL 4.4-11.0 [facility] Blood erythrocytes count (nu mber/volume)Ordered By: Dr. Sethi on 10-08-2022 RBC (Bld) [#/Vol] 4.39 10*6/uL 4.2-5.4 [facility] Blood hemoglobin measurement (mass/volume)Ordered By: Dr. Sethi on 10-08-2022 Hemoglobin (Bld) [Mass/Vol] 13.5 g/dL 12.0-15.0 [facility] Blood lymphocytes/100 leukoc ytesOrdered By: Dr. Sethi on 10-08-2022 Lymphocytes/100 WBC (Bld) 30.7 % 19-41 [facility] Blood monocytes/100 leukocyt esOrdered By: Dr. Sethi on 10-08-2022 Monocytes/100 WBC (Bld) 8.4 % 0-10 [facility] Blood platelet mean volumeOr dered By: Dr. Sethi on 10-08-2022 Platelet mean volume (Bld) [Entitic vol] 10.0 fL 6.2-12.0 [facility] Determination of erythrocyte mean corpuscular volume (MCV)Ordered By: Dr. Sethi on 10-08-2022 MCV (RBC) [Entitic vol] 93.2 fL 81-99 [facility] Hematocrit Auto (Bld) [Volum e fraction]Ordered By: Dr. Sethi on 10-08-2022 Hematocrit (Bld) [Volume fraction] 40.9 % 37-47 [facility] Laboratory - Chemistry and C hemistry - challengeOrdered By: Dr. Sethi on 10-08-2022 ALP [Catalytic activity/Vol] 98 U/L 45-117 [facility] ALT [Catalytic activity/Vol] 24 U/L 13-56 [facility] CO2 [Moles/Vol] 27.0 mmol/L 21.0-32.0 [facility] Globulin (S) [Mass/Vol] 4.1 g/dL 2.2-4.2 [facility] Magnesium [Mass/Vol] 2.1 mg/dL 1.6-2.6 [facility] Urea nitrogen/Creatinine [Mass ratio] 19.8 mg/mg 10-20 [facility] Laboratory - Hematology and Cell countsOrdered By: Dr. Sethi on 10-08-2022 Erythrocyte distribution width (RBC) [Entitic vol] 44.2 fL 35.1-43.9 [facility] Erythrocyte distribution width (RBC) [Ratio] 12.9 % 11.6-14.6 [facility] Immature granulocytes/100 WBC (Bld) 0.300 % 0.0-0.9 [facility] Comment on above: IG% - Immature Granu locytes (promyelocytes, myelocytes and metamyelocytes) > 1% indicates that a LEFT SHIFT is Present. MCH (RBC) [Entitic mass] 30.8 pg 27.0-32.0 [facility] Nucleated RBC/100 WBC (Bld) [Ratio] 0 % 0-5 [facility] MCHC Auto (RBC) [Mass/Vol]Or dered By: Dr. Sethi on 10-08-2022 MCHC (RBC) [Mass/Vol] 33.0 g/dL 32-36 [facility] No Panel InformationOrdered By: Dr. Sethi on 10-08-2022 Estimated GFR (MDRD) Amer 68 mL/min >60 [facility] Comment on above: GFR Calc Estimated GFR (MDRD) Non-Af Amer 56 mL/min >60 [facility] Comment on above: Non- GFR Calc Thyroid Stimulating Hormone (TSH) 1.25 uIU/mL 0.358-3.74 [facility] Vitamin D 25-Hydroxy 62.4 ng/mL [facility] Comment on above: Vitamin D 25(OH) Sta tus Range Deficiency <20 ng/mL (50nmol/L) Insufficiency 20 - 30 ng/mL (50 - 75 nmol/L) Sufficiency 30 - 100 ng/mL (75 - 250 nmol/L) Toxicity >100 ng/mL (>250 nmol/L) Platelets bldOrdered By: Dr. Sethi on 10-08-2022 Platelets (Bld) [#/Vol] 250 10*3/uL 150-450 [facility] Serum or plasma albumin toma urement (mass/volume)Ordered By: Dr. Sethi on 10-08-2022 Albumin [Mass/Vol] 3.3 g/dL 3.2-5.0 [facility] Serum or plasma albumin/glob ulin mass ratioOrdered By: Dr. Sethi on 10-08-2022 Albumin/Globulin [Mass ratio] 0.8 {ratio} 0.9-2.4 [facility] Serum or plasma calcium toma urement (mass/volume)Ordered By: Dr. Sethi on 10-08-2022 Calcium [Mass/Vol] 9.0 mg/dL 8.5-10.1 [facility] Serum or plasma cholesterol in HDL measurement (mass/volume)Ordered By: Dr. Sethi on 10-08-2022 Cholesterol in HDL [Mass/Vol] 67 mg/dL >40 [facility] Comment on above: The drugs N-Acetylcy steine and Metamizole may falsely depress this assay. Reference Range HDL <40 mg/dL Low HDL Cholesterol HDL >or= 60 mg/dL High HDL Cholesterol Serum or plasma cholesterol in VLDL measurement (mass/volume)Ordered By: Dr. Sethi on 10-08-2022 Cholesterol in VLDL [Mass/Vol] 19 mg/dL 5-40 [facility] Serum or plasma creatinine m easurement (mass/volume)Ordered By: Dr. Sethi on 10-08-2022 Creatinine [Mass/Vol] 1.01 mg/dL 0.55-1.02 [facility] Comment on above: The validity of the calculated GFR & GFRAA in patients over 70 years has not been determined. Clinical correlation is essential. Serum or plasma low density lipoprotein (LDL) cholesterol measurement (mass/volume)Ordered By: Dr. Sethi on 10-08-2022 Cholesterol in LDL [Mass/Vol] 103 mg/dL 0-130 [facility] Serum or plasma urea nitroge n measurement (mass/volume)Ordered By: Dr. Sethi on 10-08-2022 Urea nitrogen [Mass/Vol] 20 mg/dL 7-18 [facility] Thin prep Papanicolaou smear with manual screeningOrdered By: Dr. Sethi on 10-08-2022 Thin prep Papanicolaou smear with manual screening 19 U/L 15-37 [facility] Thin prep Papanicolaou smear with manual screening 6 5-15 [facility] TSH BLDon 06-05-2022 TSH Qn 1.560 m[IU]/L 0.270 - 4.200 mIU/L [facility] VITAMIN B12 BLOODon 06-05-19 Cobalamin (Vitamin B12) [Mass/Vol] 647 pg/mL 232 - 1,245 pg/mL [facility] VITAMIN D 25 HYDROXYon 06-05 25-hydroxyvitamin D3 [Mass/Vol] 42.3 ng/mL 31.0 - 80.0 ng/mL [facility] Influenza virus A and B RNA and SARS-CoV-2 (COVID-19) N gene panel BINTA+probe (Resp)on 04-30-2022 FLUAV RNA BINTA+probe Ql (Unsp spec) Negative Negative for Influenza A by RT-PCR [facility] FLUBV RNA BINTA+probe Ql (Unsp spec) Negative Negative for Influenza B by RT-PCR [facility] SARS-CoV-2 (COVID-19) RNA BINTA+probe Ql (Resp) SARS-CoV-2 (Agent of COVID-19) Not Detected by RT-PCR or equivalent method. Not Detected [facility] Influenza virus A and B RNA and SARS-CoV-2 (COVID-19) N gene panel BINTA+probe (Resp)on 04-23-2022 FLUAV RNA BINTA+probe Ql (Unsp spec) Negative Negative for Influenza A by RT-PCR [facility] FLUBV RNA BINTA+probe Ql (Unsp spec) Negative Negative for Influenza B by RT-PCR [facility] SARS-CoV-2 (COVID-19) RNA BINTA+probe Ql (Resp) SARS-CoV-2 (Agent of COVID-19) Not Detected by RT-PCR or equivalent method. Not Detected [facility] HISTORY PHYSICALon HISTORY PHYSICAL HNO ID: [id number] Author: Morro Otto MD Service: Pain Management Author Type: Physician Type: HANDP Filed: 03/12/2022 11:08 AM Note Text: HISTORY AND PHYSICAL EXAMINATION PATIENT NAME: Kendal Taylor DATE of SERVICE: 03/12/2022 Kendal Taylor is here for the pain mangement procedure. The patients presents with persistent pain complaints. Kendal Taylor denies any interval changes or new pain complaints or focal neurologic deficits. PAST MEDICAL HISTORY Diagnosis Date Branch retinal [...] 14 10/16/06 Right infraorbital skin lesion ablation ESOPHAGOGASTRODUODENO SCOPY TRANSORAL DIAGNOSTIC 11/02/2018 EGD LAPAROSCOPY SURG CHOLECYSTECTOMY 1989' Cholecystectomy, lap PAST SURGICAL HISTORY OF 09/29 repair prolapse bladder PAST SURGICAL HISTORY OF eye laser surgery PAST SURGICAL HISTORY OF 1988 B/L bunion surgery - Dr. Solis - [facility] PAST SURGICAL HISTORY OF 02/02/2014 right TKA [...] Maternal Grandmother DVT Brother other (Colitis) Sister ALLERGIES Allergen Reactions Cristine Inhibitors Other: See Comments listril, zestril; makes headaches worse Advair Diskus [Flut* Intolerance sore mouth Albuterol Intolerance anxiety,jitters,tachy cardia Amitriptyline Mental Status Change sedation with high doses only. Takes regularly Amoxicillin Hives HIVES Bactrim [Sulfametho* Rash, Other: See Comments fever from medication Caffeine Mental Status Change NAUSEA, MIGRAINES excedrin plus Mountain Dew but can tolerate low dose caffeine seizure 1979 Codeine GI Upset, Other: See Comments NAUSEA, MIGRAINES Doxycycline Hyclate Hives hives Hydantoins Other: See Comments Dilantin; does not remember reaction Levaquin [Levofloxa* Intolerance Dizziness at 500mg dose Pneumovax 23 [Pneum* Other: See Comments had one in 1997,, had reaction; arm swelled up for about 8 months Hruugxz-Yve-Gzn Red* Other: See Comments pt declines-not work Ultram [Tramadol Hc* Other: See Comments headache Current Facility-Administered Medications Medication Dose Route Frequency NaCl 0.9% iv infusion 30 mL/hr INTRAVENOUS CONTINUOUS Physical Exam: Performed in conjunction with observation. The patient is alert and oriented x3. The patient is in no acute distress. Neck: Supple. The range of motion is intact. Lungs: clear CVR: RRR. Extremities: no reported edema or erythema. Examination indicates no changes Impression: Cervical spondylosis Plan: The informed consent has been obtained. The plan is to proceed with the procedure as planned. (more content not included)... [facility] OPERATIVE NOon 03-12-2022 OPERATIVE NO HNO ID: [id number] Author: Morro Otto MD Service: Pain Management Author Type: Physician Type: Operative Report Filed: 03/12/2022 11:50 AM Note Text: PATIENT NAME: Kendal Taylor SERVICE DATE: 03/12/2022 PROCEDURE NOTE PREOPERATIVE DIAGNOSIS(ES) Cervical spondylosis Cervical DDD POSTOPERATIVE DIAGNOSIS(ES): Same PROCEDURE: Right C2,3,4,5 Facet Medial Branch Nerve Blockunder fluoroscopy. ANESTHESIA: Conscious sedation with versed 3 mg IV INDICATIONS: The patient presents with persistent pain. The plan is to proceed with cervical facet medial branch nerve block as a diagnostic and therapeutic approach. The risks and benefits of the procedure were discussed. Specifically, the risks of bleeding, infection, inadvertent dural puncture, spinal heaches, vasovagal reaction, epidural hematoma, partial or permanent nerve injury were covered. The potential side effects of medications used in procedures including increase in lumbar pain, headaches, facial redness or warmth (flushing), anxiety or mood swings, sleeplessness, fever, high blood sugar, brief reduction in immunity were discussed. The patient expressed understanding of potential risks and wishes to proceed with the procedure. PROCEDURE: The patient was brought to the OR. The patient was placed in the prone position with pressure points protected. Continuous hemodynamic monitoring was initiated including blood pressure, EKG, and pulse oximetry. Supplemental oxygen per nasal canula was started. The intravenous medication was administered incrementally to provide conscious sedation and to allow the patient to remain comfortable and conversant throughout the procedure. The area of the posterior cervical spine was prepped povidone-iodine three times and draped into a sterile field. Fluoroscopy was used to identify the location of the right medial branch nerves at the lateral grooves of the each vertebral levels on the C2,3,4,5 side. Skin anesthesia was achieved using 10 cc of bupivacaine 0.25% over the injection sites. A 22 gauge, 3 1/2 spinal needle was slowly inserted at each level using AP, lateral and oblique fluoroscopic imaging. Negative aspiration for blood or CSF was confirmed. A total of 4ml of 1ml of 0.25% Bupivacaine per 5 mg of Kenalog mixtuire was injected. A total of 4 sites were injected in equal and divided doses. The needles were removed and bleeding was nil. A sterile dressing was applied. The patient tolerated the procedure well. The patient was taken to the recovery room in stable condition. EBL: nil Start time: 11:36 AM End time: 11:47 AM I was present the entire time and personally performed the procedure. SIGNATURE: Morro Otto MD DATE: March 12, 2022 TIME: 11:49 AM [facility] XR FLUOROSCOPYon 03-12-2022 XR FLUOROSCOPY * * *Final Report* * * DATE OF EXAM: Mar 12 2022 11:52AM [facility] [id number] - XR FLUOROSCOPY / PROCEDURE REASON: pain * * * * Physician Interpretation * * * * Study: Pain management. XR FLUOROSCOPY HISTORY: Indication: pain PAIN TECHNIQUE: Fluoroscopic Radiation Summary: Plane A, Air Kerma: 1.9 mGy Dose Area Product (DAP): 258.7 mGy*cm^2 Fluoro time: 0:15 min:sec Images obtained: 4 Spot film images/cine fluoroscopy images under fluoroscopic guidance. Images were stored in a permanent archive. Comparison: NONE. RESULT: Findings: Imaging provided for pain management injection(s). There are 4 needles. The tips project over the C2, C3, C4 and C5 - See procedural note in Epic for further discussion. IMPRESSION: As discussed above Ripsaw Matcher: PSCB Transcribe Date/Time: Mar 12 2022 12:04P Dictated by : JEFFERSON MURRAY DO This examination was interpreted and the report reviewed and electronically signed by: JEFFERSON MURRAY DO on Mar 12 2022 12:05PM EST [id number] [facility] HISTORY PHYSICALon 2 HISTORY PHYSICAL HNO ID: [id number] Author: Morro Otto MD Service: Pain Management Author Type: Physician Type: HANDP Filed: 02/26/2022 7:20 AM Note Text: HISTORY AND PHYSICAL EXAMINATION PATIENT NAME: Kendal Taylor DATE of SERVICE: 02/26/2022 Kendal Taylor is here for the pain mangement procedure. The patients presents with persistent pain complaints. Kendal Taylor denies any interval changes or new pain complaints or focal neurologic deficits. PAST MEDICAL HISTORY Diagnosis Date Branch retinal [...] 14 10/16/06 Right infraorbital skin lesion ablation ESOPHAGOGASTRODUODENO SCOPY TRANSORAL DIAGNOSTIC 11/02/2018 EGD LAPAROSCOPY SURG CHOLECYSTECTOMY 1989' Cholecystectomy, lap PAST SURGICAL HISTORY OF 09/29 repair prolapse bladder PAST SURGICAL HISTORY OF eye laser surgery PAST SURGICAL HISTORY OF 1988 B/L bunion surgery - Dr. Solis - [facility] PAST SURGICAL HISTORY OF 02/02/2014 right TKA [...] Maternal Grandmother DVT Brother other (Colitis) Sister ALLERGIES Allergen Reactions Cristine Inhibitors Other: See Comments listril, zestril; makes headaches worse Advair Diskus [Flut* Intolerance sore mouth Albuterol Intolerance anxiety,jitters,tachy cardia Amitriptyline Mental Status Change sedation with high doses only. Takes regularly Amoxicillin Hives HIVES Bactrim [Sulfametho* Rash, Other: See Comments fever from medication Caffeine Mental Status Change NAUSEA, MIGRAINES excedrin plus Mountain Dew but can tolerate low dose caffeine seizure 1979 Codeine GI Upset, Other: See Comments NAUSEA, MIGRAINES Doxycycline Hyclate Hives hives Hydantoins Other: See Comments Dilantin; does not remember reaction Levaquin [Levofloxa* Intolerance Dizziness at 500mg dose Pneumovax 23 [Pneum* Other: See Comments had one in 1997,, had reaction; arm swelled up for about 8 months Wuzhyna-Bnz-Sqn Red* Other: See Comments pt declines-not work Ultram [Tramadol Hc* Other: See Comments headache Current Facility-Administered Medications Medication Dose Route Frequency NaCl 0.9% iv infusion 30 mL/hr INTRAVENOUS CONTINUOUS Physical Exam: Performed in conjunction with observation. The patient is alert and oriented x3. The patient is in no acute distress. Neck: Supple. The range of motion is intact. Lungs: clear CVR: RRR. Extremities: no reported edema or erythema. Examination indicates no changes Impression: Cervical spondylosis Plan: The informed consent has been obtained. The plan is to proceed with the procedure as planned. SIG (more content not included)... Normal [facility] OPERATIVE NOon 02-26-2022 OPERATIVE NO HNO ID: [id number] Author: Morro Otto MD Service: Pain Management Author Type: Physician Type: Operative Report Filed: 02/26/2022 8:08 AM Note Text: PATIENT NAME: Kendal Taylor SERVICE DATE: 02/26/2022 PROCEDURE NOTE PREOPERATIVE DIAGNOSIS(ES) Cervical spondylosis Cervical DDD POSTOPERATIVE DIAGNOSIS(ES): Same PROCEDURE: Left C2,3,4,5 Facet Medial Branch Nerve Blockunder fluoroscopy. ANESTHESIA: Conscious sedation with versed 3 mg IV INDICATIONS: The patient presents with persistent pain. The plan is to proceed with cervical facet medial branch nerve block as a diagnostic and therapeutic approach. The risks and benefits of the procedure were discussed. Specifically, the risks of bleeding, infection, inadvertent dural puncture, spinal heaches, vasovagal reaction, epidural hematoma, partial or permanent nerve injury were covered. The potential side effects of medications used in procedures including increase in lumbar pain, headaches, facial redness or warmth (flushing), anxiety or mood swings, sleeplessness, fever, high blood sugar, brief reduction in immunity were discussed. The patient expressed understanding of potential risks and wishes to proceed with the procedure. PROCEDURE: The patient was brought to the OR. The patient was placed in the prone position with pressure points protected. Continuous hemodynamic monitoring was initiated including blood pressure, EKG, and pulse oximetry. Supplemental oxygen per nasal canula was started. The intravenous medication was administered incrementally to provide conscious sedation and to allow the patient to remain comfortable and conversant throughout the procedure. The area of the posterior cervical spine was prepped povidone-iodine three times and draped into a sterile field. Fluoroscopy was used to identify the location of the C2,3,4,5 medial branch nerves at the lateral grooves of the each vertebral levels on the left side. Skin anesthesia was achieved using 10 cc of bupivacaine 0.25% over the injection sites. A 22 gauge, 3 1/2 spinal needle was slowly inserted at each level using AP, lateral and oblique fluoroscopic imaging. Negative aspiration for blood or CSF was confirmed. A total of 4ml of 1ml of 0.25% Bupivacaine per 5 mg of Kenalog mixtuire was injected. A total of 4 sites were injected in equal and divided doses. The needles were removed and bleeding was nil. A sterile dressing was applied. The patient tolerated the procedure well. The patient was taken to the recovery room in stable condition. EBL: nil Start time: 7:54 AM End time: 8:06 AM I was present the entire time and personally performed the procedure. SIGNATURE: Morro Otto MD DATE: February 26, 2022 TIME: 8:08 AM [facility] XR FLUOROSCOPYon 02-26-2022 XR FLUOROSCOPY * * *Final Report* * * DATE OF EXAM: Feb 26 2022 8:09AM MDR [id number] - XR FLUOROSCOPY / PROCEDURE REASON: PAIN * * * * Physician Interpretation * * * * Cervical spine History: Neck pain. Facet injection Findings: 3 fluoroscopic views submitted. Assessment limited by positioning. There are 4 LEFT-sided needles in the region of upper and mid cervical facet joints. Please refer to the procedure report. Fluoroscopic Radiation Summary: Plane A, Air Kerma: 4.5 mGy Fluoro time: 0:21 min:sec IMPRESSION: Please refer to procedural report and above findings. Ripsaw Matcher: TRANG Transcribe Date/Time: Feb 26 2022 9:26A Dictated by : GLENN FIGUEROA MD This examination was interpreted and the report reviewed and electronically signed by: GLENN FIGUEROA MD on Feb 26 2022 9:27AM EST [id number] [facility] Absolute lymphocyte counton 11-26-2021 Lymphocytes Auto (Unsp spec) [#/Vol] 2.30 10*3/uL 0.83-4.51 [facility] Work Phone: Basophil percentageon 2021 Basophils/100 WBC (Bld) 0.6 % 0-1 [facility] Work Phone: [phone] Chloride [Moles/Vol] 102 mmol/L 98-107 [facility]: Eosinophils/100 WBC (Bld) 2.4 % 0-5 [facility] Work Phone: Glucose [Mass/Vol] 102 mg/dL 74-106 [facility] Work Phone: Comment on above: Fasting Glucose resu lt from 100 to 125 mg/dL suggests IMPAIRED HOMEOSTASIS per A.D.A. criteria. Neutrophils (Bld) [#/Vol] 3.2 10*3/uL 2.0-7.7 [facility] Work Phone: Neutrophils/100 WBC (Bld) 49.5 % 47-70 [facility] Work Phone: Potassium [Moles/Vol] 3.3 mmol/L 3.5-5.1 [facility] Work Phone: Sodium [Moles/Vol] 136 mmol/L 136-145 [facility] Work Phone: WBC (Bld) [#/Vol] 6.6 10*3/uL 4.4-11.0 [facility] Work Phone: Blood erythrocytes count (nu mber/volume)on 11-26-2021 RBC (Bld) [#/Vol] 4.10 10*6/uL 4.2-5.4 [facility]: Blood hemoglobin measurement (mass/volume)on 11-26-2021 Hemoglobin (Bld) [Mass/Vol] 12.5 g/dL 12.0-15.0 [facility] Work Phone: Blood lymphocytes/100 leukoc yteson 11-26-2021 Lymphocytes/100 WBC (Bld) 35.1 % 19-41 [facility] Work Phone: [phone] Blood monocytes/100 leukocyt eson 11-26-2021 Monocytes/100 WBC (Bld) 12.2 % 0-10 [facility] Work Phone: [phone] Blood platelet mean volumeon 11-26-2021 Platelet mean volume (Bld) [Entitic vol] 9.5 fL 6.2-12.0 [facility] Work Phone: Determination of erythrocyte mean corpuscular volume (MCV)on 11-26-2021 MCV (RBC) [Entitic vol] 90.7 fL 81-99 [facility] Work Phone: Hematocrit Auto (Bld) [Volum e fraction]on 11-26-2021 Hematocrit (Bld) [Volume fraction] 37.2 % 37-47 [facility] Work Phone: Laboratory - Chemistry and C hemistry - challengeon 11-26-2021 CO2 [Moles/Vol] 27.0 mmol/L 21.0-32.0 [facility] Work Phone: Urea nitrogen/Creatinine [Mass ratio] 16.0 mg/mg 10-20 [facility] Work Phone: Laboratory - Hematology and Cell countson 11-26-2021 Erythrocyte distribution width (RBC) [Entitic vol] 42.9 fL 35.1-43.9 [facility] Work Phone: Erythrocyte distribution width (RBC) [Ratio] 13.0 % 11.6-14.6 [facility] Work Phone: Immature granulocytes/100 WBC (Bld) 0.200 % 0.0-0.9 [facility] Work Phone: Comment on above: IG% - Immature Granu locytes (promyelocytes, myelocytes and metamyelocytes) > 1% indicates that a LEFT SHIFT is Present. MCH (RBC) [Entitic mass] 30.5 pg 27.0-32.0 [facility] Work Phone: Nucleated RBC/100 WBC (Bld) [Ratio] 0 % 0-5 [facility] Work Phone: MCHC Auto (RBC) [Mass/Vol]on 11-26-2021 MCHC (RBC) [Mass/Vol] 33.6 g/dL 32-36 [facility]: No Panel Informationon 11-26 Estimated Creatinine Clearance Calc 49.94 ml/min [facility] Work Phone: Estimated GFR (MDRD) Amer 69 mL/min >60 [facility] Work Phone: Comment on above: GFR Calc Estimated GFR (MDRD) Non-Af Amer 57 mL/min >60 [facility] Work Phone: Comment on above: Non- GFR Calc Troponin I High Sensitivity 4 pg/mL 3.0-54.0 [facility] Work Phone: Comment on above: Please Note: New Taina t Units and Gender Specific Reference Ranges. For more information see Policy Stat Procedure Otto High Sensitivity Troponin (TNIH) and attachments. Platelets bldon 11-26-2021 Platelets (Bld) [#/Vol] 253 10*3/uL 150-450 [facility] Work Phone: Serum or plasma calcium toma urement (mass/volume)on 11-26-2021 Calcium [Mass/Vol] 8.9 mg/dL 8.5-10.1 [facility] Work Phone: Serum or plasma creatinine m easurement (mass/volume)on 11-26-2021 Creatinine [Mass/Vol] 1.00 mg/dL 0.55-1.02 [facility] Work Phone: Comment on above: The validity of the calculated GFR & GFRAA in patients over 70 years has not been determined. Clinical correlation is essential. Serum or plasma urea nitroge n measurement (mass/volume)on 11-26-2021 Urea nitrogen [Mass/Vol] 16 mg/dL 7-18 [facility] Work Phone: Thin prep Papanicolaou smear with manual screeningon 11-26-2021 Thin prep Papanicolaou smear with manual screening 7 - [facility] Work Phone: UA DIP, URINE (POC)on 2021 BILIRUBIN UA (POCT) Negative Negative [facility] CLARITY UA (POCT) Cloudy [facility] COLOR UA (POCT) Yellow [facility] GLUCOSE UA (POCT) Negative Negative mg/dL [facility] HEMOGLOBIN/BLOOD UA (POCT) Trace-intact Abnormal Negative [facility] KETONE UA (POCT) Negative Negative mg/dL [facility] LEUKOCYTES UA (POCT) Small Abnormal Negative [facility] NITRITE UA (POCT) Negative Negative [facility] PH UA (POCT) 6.0 4.5 - 8.0 [facility] Protein Ql (U) Negative Negative mg/dL [facility] SPECIFIC GRAVITY UA (POCT) 1.015 1.005 - 1.030 [facility] UROBILINOGEN UA (POCT) 0.2 E.U./dL Chanel l E.U./dL [facility] Clinical Summary: Sergio rivers 07-17-2021 MC25 OP Hand Invalid Interpretation Code [facility] Work Phone: Office Visit: Follow-up by renaldo ochoa, Rm: 10on 07-17-2021 NEGATED: Highlighted rowxray history of the right hand on 06/12/2021 at [facility] Invalid Interpretation Code [facility] Work Phone: XR Chest PA and Lateralon IMPRESSION: Stable exam without acute findings. Ripsaw Matcher: TRANG Transcribe Date/Time: Jul 03 2021 3:33P Dictated by : OLYA SEAMAN MD This examination was interpreted and the report reviewed and electronically signed by: OLYA SEAMAN MD on Jul 03 2021 3:35PM [facility] DIVISION OF RADIOLOGY * * *Final Report* * * DATE OF EXAM: Jul 03 2021 3:25PM WOX [id number] - XR CHEST 2V FRONTAL/LAT / PROCEDURE REASON: multiple diagnoses * * * * Physician Interpretation * * * * EXAMINATION: CHEST RADIOGRAPH (2 VIEW FRONTAL & LATERAL) CLINICAL HISTORY: Fatigue, unspecified type Dyspnea on exertion MQ: XC2_6 EXAM DATE/TIME: 07/03/2021 3:25 PM COMPARISON: Chest x-ray on 08/01/2017 RESULT: Lines, tubes, and devices: None. Lungs and pleura: Stable calcified granulomas in the bilateral lungs. No consolidation. No lung mass. No pleural effusion. No pneumothorax. Cardiomediastinal silhouette: Stable cardiomediastinal silhouette. Bones and soft tissues: There are mild degenerative changes in the spine. DIVISION OF RADIOLOGY Provider, Angelina Bruno - 07/03/2021 * * *Final Report* * * DATE OF EXAM: Jul 03 2021 3:25PM WOX [id number] - XR CHEST 2V FRONTAL/LAT / PROCEDURE REASON: multiple diagnoses * * * * Physician Interpretation * * * * EXAMINATION: CHEST RADIOGRAPH (2 VIEW FRONTAL & LATERAL) CLINICAL HISTORY: Fatigue, unspecified type Dyspnea on exertion MQ: XC2_6 EXAM DATE/TIME: 07/03/2021 3:25 PM COMPARISON: Chest x-ray on 08/01/2017 RESULT: Lines, tubes, and devices: None. Lungs and pleura: Stable calcified granulomas in the bilateral lungs. No consolidation. No lung mass. No pleural effusion. No pneumothorax. Cardiomediastinal silhouette: Stable cardiomediastinal silhouette. Bones and soft tissues: There are mild degenerative changes in the spine. IMPRESSION IMPRESSION: Stable exam without acute findings. Ripsaw Matcher: PSCB Transcribe Date/Time: Jul 03 2021 3:33P Dictated by : OLYA SEAMAN MD This examination was interpreted and the report reviewed and electronically signed by: OLYA SEAMAN MD on Jul 03 2021 3:35PM EST [facility] Radiology Study observation (narrative) [place] [facility] XR Chest PA and LateralOrder ed By: Cc Provider on 07-03-2021 [facility] Clinical Summary: Sergio rivers 06-12-2021 MC25 OP Hand Invalid Interpretation Code [facility] Work Phone: Office Visit: New - visi t with practice, Rm: 11on 06-12-2021 NEGATED: Highlighted rowTobacco smoking status Tobacco smoking status Invalid Interpretation Code [facility] Work Phone: CORONAVIRUS PCR [CCL]on 03-29 REF LAB REPORT Negative Normal [facility] Comment on above: Performed By: #### [id number] #### [facility],[address] [place] [address] SEND TO ? NO Normal [facility] Comment on above: Performed By: #### [id number] #### [facility],[address] [place], [place] [id number] COVID 19 Result INSPECTOR REPAIRER SANDSTONE Negative Normal [facility] Comment on above: Result Comment: Nega tive for COVID19 (SARS CoV2) by PCR. This test was developed and its performance characteristics determined by [facility]'s [facility] [place]. This test has been authorized by FDA under an Emergency Use Authorization (EUA). This test has been validated in accordance with the FDA's Guidance Document Policy for Diagnostics Testing in Laboratories Certified to Perform High Complexity Testing under CLIA prior to Emergency use Authorization for Coronavirus Disease 2019 during the Public Health Emergency issued on June 26, [place] [address] Timmy Gudino III, M.D. [id number] Performed By: #### [id number] #### [facility],[address] [place] [address] COVID 19 Source INSPECTOR REPAIRER SANDSTONE Nasopharyngeal Swab Normal [facility] Comment on above: Result Comment: Lynn ected on 04/25 AT 0624: Previously reported as U Performed By: #### [id number] #### [place] [id number] Coronavirus 2019on 0 COVID 19 Result INSPECTOR REPAIRER SANDSTONE Normal Negative for COVID19 (SARS CoV2) by PCR. [facility] Comment on above: Result Comment: Nega tive for This test was developed and its performance characteristics determined by [facility]'s [facility] [place]. This test has been authorized by FDA under an Emergency Use Authorization (EUA). This test has been validated in accordance with the FDA's Guidance Document Policy for Diagnostics Testing in Laboratories Certified to Perform High Complexity Testing under CLIA prior to Emergency use Authorization for Coronavirus Disease 2019 during the Public Health Emergency issued on June 26, 2019. COVID19 (SARS This test was developed and its performance characteristics determined by [facility] [place]. This test has been authorized by FDA under an Emergency Use Authorization (EUA). This test has been validated in accordance with the FDA's Guidance Document Policy for Diagnostics Testing in Laboratories Certified to Perform High Complexity Testing under CLIA prior to Emergency use Authorization for Coronavirus Disease 2019 during the Public Health Emergency issued on June 26, 2019. CoV2) by PCR. This test was developed and its performance characteristics determined by [facility] [place]. This test has been authorized by FDA under an Emergency Use Authorization (EUA). This test has been validated in accordance with the FDA's Guidance Document Policy for Diagnostics Testing in Laboratories Certified to Perform High Complexity Testing under CLIA prior to Emergency use Authorization for Coronavirus Disease 2019 during the Public Health Emergency issued on June 26, 2019. COVID 19 Source INSPECTOR REPAIRER SANDSTONE Normal [facility] Comment on above: Result Comment: Naso pharyngeal Corrected on 04/25 AT 0624: Previously reported as U Swab Corrected on 04/25 AT 0624: Previously reported as U Vital Signs Date Time Vital Sign Value Performing Clinician Facility 09-16-2024 09:29-0400 Body height 149.[address] Santa Sethi MD Work Phone: [facility] 09-16-2024 09:29-0400 Body mass index (BMI) [Ratio] 34.2 kg/m2 Dr. Santa Sethi MD Work Phone: [facility] 09-16-2024 09:29-0400 Body temperature 98.4 [degF] Dr. Santa Sethi MD Work Phone: [facility] 09-16-2024 09:29-0400 Body weight 76.[address] Santa Sethi MD Work Phone: [facility] 09-16-2024 09:29-0400 Diastolic blood pressure 79 mm[Hg] Dr. Santa Sethi MD Work Phone: [facility] 09-16-2024 09:29-0400 Heart rate 88 /min Dr. Santa Sethi MD Work Phone: [facility] 09-16-2024 09:29-0400 Respiratory rate 16 /min Dr. Santa Sethi MD Work Phone: [facility] 09-16-2024 09:29-0400 SaO2% (BldA) [Mass fraction] 95 % Dr. Santa Sethi MD Work Phone: [facility] 09-16-2024 09:29-0400 Systolic blood pressure 142 mm[Hg] Dr. Santa Sethi MD Work Phone: [facility] 08-10-2024 16:49-0400 Body temperature 96.6 [degF] Dr. Santa Sethi MD Work Phone: [facility] 08-10-2024 16:49-0400 Diastolic blood pressure 69 mm[Hg] Dr. Santa Sethi MD Work Phone: [facility] 08-10-2024 16:49-0400 Heart rate 90 /min Dr. Santa Sethi MD Work Phone: [facility] 08-10-2024 16:49-0400 Respiratory rate 16 /min Dr. Santa Sethi MD Work Phone: [facility] 08-10-2024 16:49-0400 SaO2% (BldA) [Mass fraction] 97 % Dr. Santa Sethi MD Work Phone: [facility] 08-10-2024 16:49-0400 Systolic blood pressure 153 mm[Hg] Dr. Santa Sethi MD Work Phone: [facility] 08-10-2024 14:35-0400 Body height 149.[address] Santa Sethi MD Work Phone: [facility] 05-11-2024 08:57-0500 Body temperature 97.7 [degF] Dr. Santa Sethi MD Work Phone: [facility] 05-11-2024 08:57-0500 Diastolic blood pressure 64 mm[Hg] Dr. Santa Sethi MD Work Phone: [facility] 05-11-2024 08:57-0500 Heart rate 68 /min Dr. Santa Sethi MD Work Phone: [facility] 05-11-2024 08:57-0500 Respiratory rate 16 /min Dr. Santa Sethi MD Work Phone: [facility] 05-11-2024 08:57-0500 SaO2% (BldA) [Mass fraction] 97 % Dr. Santa Sethi MD Work Phone: [facility] 05-11-2024 08:57-0500 Systolic blood pressure 146 mm[Hg] Dr. Santa Sethi MD Work Phone: [facility] 02-16-2024 09:52-0400 Body mass index (BMI) [Ratio] 33.12 kg/m2 Valerie Kothari MD Work Phone: [facility] 02-16-2024 09:52-0400 Body weight 74.39 kg Valerie Kothari MD Work Phone: [facility] 02-16-2024 09:52-0400 Diastolic blood pressure 74 mm[Hg] Valerie Kothari MD Work Phone: [facility] 02-16-2024 09:52-0400 Heart rate 88 /min Valerie Kothari MD Work Phone: [facility] 02-16-2024 09:52-0400 SaO2% (BldA) [Mass fraction] 98 % Valerie Kothari MD Work Phone: [facility] 02-16-2024 09:52-0400 Systolic blood pressure 124 mm[Hg] Valerie Kothari MD Work Phone: [facility] 11-24-2023 15:20-0400 Body height 149.9 cm Valerie Kothari MD Work Phone: [facility] 11-24-2023 15:20-0400 Body mass index (BMI) [Ratio] 33.93 kg/m2 Valerie Kothari MD Work Phone: [facility] 11-24-2023 15:20-0400 Body weight 76.2 kg Valerie Kothari MD Work Phone: [facility] 11-24-2023 15:20-0400 Diastolic blood pressure 91 mm[Hg] Valerie Kothari MD Work Phone: [facility] 11-24-2023 15:20-0400 Heart rate 93 /min Valerie Kothari MD Work Phone: [facility] 11-24-2023 15:20-0400 SaO2% (BldA) [Mass fraction] 97 % Valerie Kothari MD Work Phone: [facility] 11-24-2023 15:20-0400 Systolic blood pressure 158 mm[Hg] Valerie Kothari MD Work Phone: [facility] 07-05-2023 10:37-0500 Body height 149.[address] Santa Sethi Work Phone: [facility] 07-05-2023 10:37-0500 Body mass index (BMI) [Ratio] 33.9 kg/m2 Dr. Santa Sethi Work Phone: [facility] 07-05-2023 10:37-0500 Body temperature 97.8 [degF] Dr. Santa Sethi Work Phone: [facility] 07-05-2023 10:37-0500 Body weight 76.[address] Santa Sethi Work Phone: [facility] 07-05-2023 10:37-0500 Diastolic blood pressure 84 mm[Hg] Dr. Santa Sethi Work Phone: [facility] 07-05-2023 10:37-0500 Heart rate 101 /min Dr. Santa Sethi Work Phone: [facility] 07-05-2023 10:37-0500 Respiratory rate 17 /min Dr. Santa Sethi Work Phone: [facility] 07-05-2023 10:37-0500 SaO2% (BldA) [Mass fraction] 97 % Dr. Santa Sethi Work Phone: [facility] 07-05-2023 10:37-0500 Systolic blood pressure 136 mm[Hg] Dr. Santa Sethi Work Phone: [facility] 06-30-2023 13:58-0500 Body height 149.[address] Santa Sethi Work Phone: [facility] 06-30-2023 13:58-0500 Body mass index (BMI) [Ratio] 33.9 kg/m2 Dr. Santa Sethi Work Phone: [facility] 06-30-2023 13:58-0500 Body temperature 98.1 [degF] Dr. Santa Sethi Work Phone: [facility] 06-30-2023 13:58-0500 Body weight 76.[address] Santa Sethi Work Phone: [facility] 06-30-2023 13:58-0500 Diastolic blood pressure 95 mm[Hg] Dr. Santa Sethi Work Phone: [facility] 06-30-2023 13:58-0500 Heart rate 92 /min Dr. Santa Sethi Work Phone: [facility] 06-30-2023 13:58-0500 SaO2% (BldA) [Mass fraction] 95 % Dr. Santa Sethi Work Phone: [facility] 06-30-2023 13:58-0500 Systolic blood pressure 149 mm[Hg] Dr. Santa Sethi Work Phone: [facility] 06-04-2023 21:06-0500 Diastolic blood pressure 91 mm[Hg] Dr. Santa Sethi Work Phone: [facility] 06-04-2023 21:06-0500 Heart rate 89 /min Dr. Santa Sethi Work Phone: [facility] 06-04-2023 21:06-0500 Respiratory rate 14 /min Dr. Santa Sethi Work Phone: [facility] 06-04-2023 21:06-0500 SaO2% (BldA) [Mass fraction] 99 % Dr. Santa Sethi Work Phone: [facility] 06-04-2023 21:06-0500 Systolic blood pressure 159 mm[Hg] Dr. Santa Sethi Work Phone: [facility] 06-04-2023 15:50-0500 Body height 149.[address] Santa Sethi Work Phone: [facility] 06-04-2023 15:50-0500 Body mass index (BMI) [Ratio] 33.2 kg/m2 Dr. Santa Sethi Work Phone: [facility] 06-04-2023 15:50-0500 Body temperature 97.7 [degF] Dr. Santa Sethi Work Phone: [facility] 06-04-2023 15:50-0500 Body weight 74.[address] Santa Sethi Work Phone: [facility] 06-04-2023 14:22-0500 Body mass index (BMI) [Ratio] 33.4 kg/m2 Dr. Santa Sethi Work Phone: [facility] 06-04-2023 14:22-0500 Body temperature 97.1 [degF] Dr. Santa Sethi Work Phone: [facility] 06-04-2023 14:22-0500 Body weight 75.[address] Santa Sethi Work Phone: [facility] 06-04-2023 14:22-0500 Diastolic blood pressure 84 mm[Hg] Dr. Santa Sethi Work Phone: [facility] 06-04-2023 14:22-0500 Heart rate 94 /min Dr. Santa Sethi Work Phone: [facility] 06-04-2023 14:22-0500 Respiratory rate 16 /min Dr. Santa Sethi Work Phone: [facility] 06-04-2023 14:22-0500 SaO2% (BldA) [Mass fraction] 98 % Dr. Santa Sethi Work Phone: [facility] 06-04-2023 14:22-0500 Systolic blood pressure 156 mm[Hg] Dr. Santa Sethi Work Phone: [facility] 01-14-2023 09:31-0400 Body temperature 97.81 [degF] Lyly Athy PA-C Work Phone: [facility] 01-14-2023 09:31-0400 Body weight 73.48 kg Lyly Athy PA-C Work Phone: [facility] 01-14-2023 09:31-0400 Diastolic blood pressure 74 mm[Hg] Lyly Athy PA-C Work Phone: [facility] 01-14-2023 09:31-0400 Heart rate 92 /min Lyly Athy PA-C Work Phone: [facility] 01-14-2023 09:31-0400 Respiratory rate 16 /min Lyly Athy PA-C Work Phone: [facility] 01-14-2023 09:31-0400 SaO2% (BldA) [Mass fraction] 99 % Lyly Athy PA-C Work Phone: [facility] 01-14-2023 09:31-0400 Systolic blood pressure 128 mm[Hg] Lyly Athy PA-C Work Phone: [facility] 01-08-2023 13:44-0400 Body temperature 97.7 [degF] Petey Campos MD Work Phone: [facility] 01-08-2023 13:44-0400 Body weight 73.94 kg Petey Campos MD Work Phone: [facility] 01-08-2023 13:44-0400 Diastolic blood pressure 80 mm[Hg] Petey Campos MD Work Phone: [facility] 01-08-2023 13:44-0400 Heart rate 88 /min Petey Campos MD Work Phone: [facility] 01-08-2023 13:44-0400 Respiratory rate 16 /min Petey Campos MD Work Phone: [facility] 01-08-2023 13:44-0400 SaO2% (BldA) [Mass fraction] 99 % Petey Campos MD Work Phone: [facility] 01-08-2023 13:44-0400 Systolic blood pressure 124 mm[Hg] Petey Campos MD Work Phone: [facility] 11-12-2022 11:29-0400 Body height 149.[address] Kenney Atkins Work Phone: [facility] 11-12-2022 11:29-0400 Body mass index (BMI) [Ratio] 31.1 kg/m2 Dr. Kenney Atkins Work Phone: 5(388)638-882941 [place] [address] 11-12-2022 11:29-0400 Body temperature 97.8 [degF] Dr. Kenney Atkins Work Phone: 6(341)076-069941 [place] [address] 11-12-2022 11:29-0400 Body weight 70.[address] Kenney Atkins Work Phone: 7(888)302-891741 [place] [address] 11-12-2022 11:29-0400 Diastolic blood pressure 64 mm[Hg] Dr. Kenney Atkins Work Phone: 9(840)216-042441 [place] [address] 11-12-2022 11:29-0400 Heart rate 83 /min Dr. Kenney Atkins Work Phone: [facility] 11-12-2022 11:29-0400 Respiratory rate 14 /min Dr. Kenney Atkins Work Phone: [facility] 11-12-2022 11:29-0400 SaO2% (BldA) [Mass fraction] 99 % Dr. Kenney Atkins Work Phone: [facility] 11-12-2022 11:29-0400 Systolic blood pressure 129 mm[Hg] Dr. Kenney Atkins Work Phone: [facility] 11-12-2022 11:06-0400 Body temperature 97 [degF] Altaf [facility] EXTENSION AGENT.JEWELRY SALES REPRESENTATIVE Work Phone: [facility] 11-12-2022 11:06-0400 Body weight 70.31 kg [facility] EXTENSION AGENT.JEWELRY SALES REPRESENTATIVE Work Phone: [facility] 11-12-2022 11:06-0400 Diastolic blood pressure 80 mm[Hg] Altaf [facility] EXTENSION AGENT.JEWELRY SALES REPRESENTATIVE Work Phone: [facility] 11-12-2022 11:06-0400 Heart rate 92 /min Altaf [facility] EXTENSION AGENT.JEWELRY SALES REPRESENTATIVE Work Phone: [facility] 11-12-2022 11:06-0400 Respiratory rate 16 /min [facility] EXTENSION AGENT.JEWELRY SALES REPRESENTATIVE Work Phone: [facility] 11-12-2022 11:06-0400 SaO2% (BldA) [Mass fraction] 99 % [facility] EXTENSION AGENT.JEWELRY SALES REPRESENTATIVE Work Phone: [facility] 11-12-2022 11:06-0400 Systolic blood pressure 122 mm[Hg] Altaf [facility] EXTENSION AGENT.JEWELRY SALES REPRESENTATIVE Work Phone: [facility] 11-12-2022 10:10-0400 Body temperature 97.7 [degF] Dr. Kenney Atkins Work Phone: [facility] 11-12-2022 10:10-0400 Diastolic blood pressure 79 mm[Hg] Dr. Kenney Atkins Work Phone: 0(639)292-812584 [place] [address] 11-12-2022 10:10-0400 Heart rate 79 /min Dr. Kenney Atkins Work Phone: 4(483)673-067784 [place] [address] 11-12-2022 10:10-0400 Respiratory rate 16 /min Dr. Kenney Atkins Work Phone: 0(678)076-907484 [place] [address] 11-12-2022 10:10-0400 SaO2% (BldA) [Mass fraction] 100 % Dr. Kenney Atkins Work Phone: 5(461)790-564184 [place] [address] 11-12-2022 10:10-0400 Systolic blood pressure 143 mm[Hg] Dr. Kenney Atkins Work Phone: 6(538)216-030584 [place] [address] 11-12-2022 08:03-0400 Body height 149.[address] Kenney Atkins Work Phone: 2(773)399-780084 [place] [address] 11-12-2022 08:03-0400 Body mass index (BMI) [Ratio] 30.7 kg/m2 Dr. Kenney Atkins Work Phone: 3(567)250-885184 [place] [address] 11-12-2022 08:03-0400 Body weight [address] Kenney Atkins Work Phone: 6(995)067-305284 [place] [address] 10-22-2022 13:13-0400 Body mass index (BMI) [Ratio] 31.8 kg/m2 Dr. Kenney Atkins Work Phone: 9(507)345-528584 [place] [address] 10-22-2022 13:13-0400 Body temperature 97.2 [degF] Dr. Kenney Atkins Work Phone: 2(252)086-601784 [place] [address] 10-22-2022 13:13-0400 Body weight 71.[address] Kenney Atkins Work Phone: 8(164)076-988584 [place] [address] 10-22-2022 13:13-0400 Diastolic blood pressure 86 mm[Hg] Dr. Kenney Atkins Work Phone: 1(674)677-521884 [place] [address] 10-22-2022 13:13-0400 Heart rate 83 /min Dr. Kenney Atkins Work Phone: 1(998)197-183441 [place] [address] 10-22-2022 13:13-0400 Respiratory rate 17 /min Dr. Kenney Atkins Work Phone: 8(947)680-582884 [place] [address] 10-22-2022 13:13-0400 SaO2% (BldA) [Mass fraction] 98 % Dr. Kenney Atkins Work Phone: 0(146)091-922184 [place] [address] 10-22-2022 13:13-0400 Systolic blood pressure 154 mm[Hg] Dr. Kenney Atkins Work Phone: 8(145)462-559484 [place] [address] 09-11-2022 15:19-0400 Body height 149.[address] Kenney Atkins Work Phone: 3(004)945-903484 [place] [address] 09-11-2022 15:19-0400 Body mass index (BMI) [Ratio] 31.9 kg/m2 Dr. Kenney Atkins Work Phone: 1(866)377-721384 [place] [address] 09-11-2022 15:19-0400 Body temperature 98.2 [degF] Dr. Kenney Atkins Work Phone: 1(150)349-437484 [place] [address] 09-11-2022 15:19-0400 Body weight 71.[address] Kenney Atkins Work Phone: 9(374)305-820484 [place] [address] 09-11-2022 15:19-0400 Diastolic blood pressure 79 mm[Hg] Dr. Kenney Atkins Work Phone: 5(176)466-587184 [place] [address] 09-11-2022 15:19-0400 Heart rate 81 /min Dr. Kenney Atkins Work Phone: 7(199)464-228784 [place] [address] 09-11-2022 15:19-0400 Respiratory rate 16 /min Dr. Kenney Atkins Work Phone: 3(407)399-068784 [place] [address] 09-11-2022 15:19-0400 SaO2% (BldA) [Mass fraction] 95 % Dr. Kenney Atkins Work Phone: 2(646)882-917984 [place] [address] 09-11-2022 15:19-0400 Systolic blood pressure 150 mm[Hg] Dr. Kenney Atkins Work Phone: [facility] 07-23-2022 09:27-0400 Body height 152.4 cm Kenney Atkins MD Work Phone: [facility] 07-23-2022 09:27-0400 Body temperature 97.5 [degF] Kenney Atkins MD Work Phone: [facility] 07-23-2022 09:27-0400 Body weight 70.76 kg Kenney Atkins MD Work Phone: [facility] 07-23-2022 09:27-0400 Diastolic blood pressure 76 mm[Hg] Kenney Atkins MD Work Phone: [facility] 07-23-2022 09:27-0400 Heart rate 91 /min Kenney Atkins MD Work Phone: [facility] 07-23-2022 09:27-0400 Respiratory rate 12 /min Kenney Atkins MD Work Phone: [facility] 07-23-2022 09:27-0400 SaO2% (BldA) [Mass fraction] 96 % Kenney Atkins MD Work Phone: [facility] 07-23-2022 09:27-0400 Systolic blood pressure 126 mm[Hg] Kenney Atkins MD Work Phone: [facility] 06-04-2022 14:22-0500 Diastolic blood pressure 80 mm[Hg] Kenney Atkins MD Work Phone: [facility] 06-04-2022 14:22-0500 Systolic blood pressure 132 mm[Hg] Kenney Atkins MD Work Phone: [facility] 06-04-2022 13:23-0500 Body height 152.4 cm Kenney Atkins MD Work Phone: [facility] 06-04-2022 13:23-0500 Body temperature 97.7 [degF] Kenney Atkins MD Work Phone: [facility] 06-04-2022 13:23-0500 Body weight 69.4 kg Kenney Atkins MD Work Phone: [facility] 06-04-2022 13:23-0500 Heart rate 86 /min Kenney Atkins MD Work Phone: [facility] 06-04-2022 13:23-0500 Respiratory rate 12 /min Kenney Atkins MD Work Phone: [facility] 06-04-2022 13:23-0500 SaO2% (BldA) [Mass fraction] 98 % Kenney Atkins MD Work Phone: [facility] 05-17-2022 13:24-0500 Body weight 68.95 kg Nellie Pamela EXTENSION AGENT.JEWELRY SALES REPRESENTATIVE Work Phone: [facility] 05-17-2022 13:24-0500 Diastolic blood pressure 70 mm[Hg] Nellie Pamela EXTENSION AGENT.JEWELRY SALES REPRESENTATIVE Work Phone: [facility] 05-17-2022 13:24-0500 Systolic blood pressure 132 mm[Hg] Nellie [place]ahu[place] EXTENSION AGENT.JEWELRY SALES REPRESENTATIVE Work Phone: [facility] 04-29-2022 09:25-0500 Body temperature 97.59 [degF] Petey Campos MD Work Phone: [facility] 04-29-2022 09:25-0500 Body weight 67.77 kg Petey Campos MD Work Phone: [facility] 04-29-2022 09:25-0500 Diastolic blood pressure 84 mm[Hg] Petey Campos MD Work Phone: [facility] 04-29-2022 09:25-0500 Heart rate 104 /min Petey Campos MD Work Phone: [facility] 04-29-2022 09:25-0500 Respiratory rate 18 /min Petey Campos MD Work Phone: [facility] 04-29-2022 09:25-0500 SaO2% (BldA) [Mass fraction] 98 % Petey Campos MD Work Phone: [facility] 04-29-2022 09:25-0500 Systolic blood pressure 124 mm[Hg] Petey Campos MD Work Phone: [facility] 04-23-2022 09:01-0500 Body temperature 98.6 [degF] Margaux Call EXTENSION AGENT.JEWELRY SALES REPRESENTATIVE Work Phone: [facility] 04-23-2022 09:01-0500 Body weight 68.49 kg EXTENSION AGENT.JEWELRY SALES REPRESENTATIVE Work Phone: [facility] 04-23-2022 09:01-0500 Diastolic blood pressure 90 mm[Hg] EXTENSION AGENT.JEWELRY SALES REPRESENTATIVE Work Phone: [facility] 04-23-2022 09:01-0500 Heart rate 96 /min EXTENSION AGENT.JEWELRY SALES REPRESENTATIVE Work Phone: [facility] 04-23-2022 09:01-0500 Respiratory rate 18 /min ow EXTENSION AGENT.JEWELRY SALES REPRESENTATIVE Work Phone: [facility] 04-23-2022 09:01-0500 SaO2% (BldA) [Mass fraction] 100 % EXTENSION AGENT.JEWELRY SALES REPRESENTATIVE Work Phone: [facility] 04-23-2022 09:01-0500 Systolic blood pressure 138 mm[Hg] EXTENSION AGENT.JEWELRY SALES REPRESENTATIVE Work Phone: [facility] 02-12-2022 12:12-0400 Body temperature 97.39 [degF] Kenney Atkins MD Work Phone: [facility] 02-12-2022 12:12-0400 Body weight 71.67 kg Kenney Atkins MD Work Phone: [facility] 02-12-2022 12:12-0400 Diastolic blood pressure 80 mm[Hg] Kenney Atkins MD Work Phone: [facility] 02-12-2022 12:12-0400 Heart rate 77 /min Kenney Atkins MD Work Phone: [facility] 02-12-2022 12:12-0400 Respiratory rate 14 /min Kenney Atkins MD Work Phone: [facility] 02-12-2022 12:12-0400 SaO2% (BldA) [Mass fraction] 9 % Kenney Atkins MD Work Phone: [facility] 02-12-2022 12:12-0400 Systolic blood pressure 132 mm[Hg] Kenney Atkins MD Work Phone: [facility] 01-10-2022 15:09-0400 Body height 151.1 cm Teresa Rodriguez PA-C Work Phone: [facility] 01-10-2022 15:09-0400 Body weight 72.08 kg Teresa Rodriguez PA-C Work Phone: [facility] 01-10-2022 15:09-0400 Diastolic blood pressure 67 mm[Hg] Teresa NAIR-C Work Phone: [facility] 01-10-2022 15:09-0400 Heart rate 80 /min Teresa NAIR-C Work Phone: [facility] 01-10-2022 15:09-0400 SaO2% (BldA) [Mass fraction] 99 % Teresa NAIR-C Work Phone: [facility] 01-10-2022 15:09-0400 Systolic blood pressure 153 mm[Hg] Teresa Rodriguez PA-C Work Phone: [facility] 12-14-2021 13:34-0400 Body height 149.9 cm Kenney Atkins MD Work Phone: [facility] 12-14-2021 13:34-0400 Body temperature 97.81 [degF] Kenney Atkins MD Work Phone: [facility] 12-14-2021 13:34-0400 Body weight 69.85 kg Kenney Atkins MD Work Phone: [facility] 12-14-2021 13:34-0400 Diastolic blood pressure 72 mm[Hg] Kenney Atkins MD Work Phone: [facility] 12-14-2021 13:34-0400 Heart rate 68 /min Kenney Atkins MD Work Phone: [facility] 12-14-2021 13:34-0400 Respiratory rate 12 /min Kenney Atkins MD Work Phone: [facility] 12-14-2021 13:34-0400 SaO2% (BldA) [Mass fraction] 98 % Kenney Atkins MD Work Phone: [facility] 12-14-2021 13:34-0400 Systolic blood pressure 138 mm[Hg] Kenney Atkins MD Work Phone: [facility] 11-26-2021 05:36-0400 Respiratory rate 18 /min [facility] Work Phone: 11-26-2021 04:09-0400 Body height 149.86 cm [facility] Work Phone: 11-26-2021 04:09-0400 Body mass index (BMI) [Ratio] 31.4 kg/m2 [facility] Work Phone: 11-26-2021 04:09-0400 Body temperature 96.3 [degF] [facility] Work Phone: 11-26-2021 04:09-0400 Body weight 70.5 kg [facility] Work Phone: 11-26-2021 04:09-0400 Diastolic blood pressure 83 mm[Hg] [facility] Work Phone: 11-26-2021 04:09-0400 Heart rate 73 /min [facility] Work Phone: 11-26-2021 04:09-0400 SaO2% (BldA) [Mass fraction] 98 % [facility] Work Phone: 11-26-2021 04:09-0400 Systolic blood pressure 156 mm[Hg] [facility] Work Phone: 11-13-2021 09:45-0400 Body height 149.9 cm Kenney Atkins MD Work Phone: [facility] 11-13-2021 09:45-0400 Body temperature 98.1 [degF] Kenney Atkins MD Work Phone: [facility] 11-13-2021 09:45-0400 Body weight 70.76 kg Kenney Atkins MD Work Phone: [facility] 11-13-2021 09:45-0400 Diastolic blood pressure 72 mm[Hg] Kenney Atkins MD Work Phone: [facility] 11-13-2021 09:45-0400 Heart rate 83 /min Kenney Atkins MD Work Phone: [facility] 11-13-2021 09:45-0400 Respiratory rate 12 /min Kenney Atkins MD Work Phone: [facility] 11-13-2021 09:45-0400 SaO2% (BldA) [Mass fraction] 97 % Kenney Atkins MD Work Phone: [facility] 11-13-2021 09:45-0400 Systolic blood pressure 132 mm[Hg] Kenney Atkins MD Work Phone: [facility] 11-09-2021 09:09-0400 Body height 149.9 cm Jennifer Ledesma PA-C Work Phone: [facility] 11-09-2021 09:09-0400 Body temperature 97.7 [degF] Jennifer Ledesma PA-C Work Phone: [facility] 11-09-2021 09:09-0400 Body weight 71.67 kg Jennifer Ledesma PA-C Work Phone: [facility] 11-09-2021 09:09-0400 Diastolic blood pressure 76 mm[Hg] Jennifer Ledesma PA-C Work Phone: [facility] 11-09-2021 09:09-0400 Heart rate 98 /min Jennifer Ledesma PA-C Work Phone: [facility] 11-09-2021 09:09-0400 Respiratory rate 14 /min Jennifer Ledesma PA-C Work Phone: [facility] 11-09-2021 09:09-0400 SaO2% (BldA) [Mass fraction] 97 % Jennifer Ledesma PA-C Work Phone: [facility] 11-09-2021 09:09-0400 Systolic blood pressure 142 mm[Hg] Jennifer Ledesma PA-C Work Phone: [facility] 11-01-2021 11:19-0400 Body height 152.4 cm Terrance Mccain MD Work Phone: [facility] 11-01-2021 11:19-0400 Body weight 70.53 kg Terrance Mccain MD Work Phone: [facility] 11-01-2021 11:19-0400 Diastolic blood pressure 71 mm[Hg] Terrance Mccain MD Work Phone: [facility] 11-01-2021 11:19-0400 Heart rate 86 /min Terrance Mccain MD Work Phone: [facility] 11-01-2021 11:19-0400 Systolic blood pressure 137 mm[Hg] Terrance Mccain MD Work Phone: [facility] NEGATED: Highlighted [id number] 10:48-0400 Body height 152.4 cm Madison Lambert AT [facility] Work Phone: NEGATED: Highlighted [id number] 10:48-0400 Body height 152 cm Madison Lambert AT [facility] Work Phone: NEGATED: Highlighted [id number] 10:48-0400 Body mass index (BMI) [Ratio] 30.18 kg/m2 Madison Lambert AT [facility] Work Phone: NEGATED: Highlighted [id number] 10:48-0400 Body weight 69.85 kg Madison Lambert AT [facility] Work Phone: NEGATED: Highlighted [id number] 10:48-0400 Body weight 70 kg Madison Fausto AT [facility] Work Phone: NEGATED: Highlighted [id number] 10:17-0500 Body height 152.4 cm Maureen Dumont RN [facility] Work Phone: NEGATED: Highlighted [id number] 10:17-0500 Body height 152 cm Maureen Dumont RN [facility] Work Phone: NEGATED: Highlighted [id number] 10:17-0500 Body mass index (BMI) [Ratio] 30.18 kg/m2 Maureen Dumont RN [facility] Work Phone: NEGATED: Highlighted [id number] 10:17-0500 Body weight 69.85 kg Maureen Dumont RN [facility] Work Phone: NEGATED: Highlighted [id number] 10:17-0500 Body weight 70 kg Maureen Dumont RN [facility] Work Phone: Encounters Encounter Date Encounter Type Care Provider Facility Start: 10-15-2024 ambulatory Santa Sethi Facility :[facility] Start: 10-12-2024 ambulatory Santa Sethi Facility :[facility] Start: 09-16-2024 End: 09-16-[address] Santa Sethi MD Work Phone: [facility] Work Phone: Start: 09-16-2024 End: 09-16-[address] Santa Sethi MD -Laboratory Work Phone: Start: 09-16-2024 End: 09-16-[address] Santa Sethi MD -[facility] Work Phone: Start: 09-16-2024 End: 09-16-2024 ambulatory Santa Sethi Facility:[facility] Start: 09-16-2024 End: 09-16-2024 ambulatory Santa Sethi Facility:[facility] Start: 09-06-2024 End: 09-06-2024 Patient encounter procedure Peter Patton MD Work Phone: Orthopaedics Comment on above: Left leg swelling (P rimary Dx); Acute left ankle pain Start: 09-06-2024 End: 09-06-2024 ambulatory PETER PATTON Facility:[facility] Start: 09-06-2024 End: 09-06-2024 Subsequent hospital visit by physician X[facility] Work Phone: Radiology Comment on above: Closed avulsion frac ture of left ankle, initial encounter [S82.892A] Start: 08-31-2024 End: 08-31-2024 Orders Only Peter Patton MD Work Phone: Orthopaedics Comment on above: Closed avulsion frac ture of left ankle, initial encounter (Primary Dx) Start: 08-13-2024 End: 08-13-2024 Patient encounter procedure Sheila Ingram PA-C Work Phone: Orthopaedics Comment on above: Closed avulsion frac ture of left ankle, initial encounter (Primary Dx) Start: 08-13-2024 End: 08-13-2024 ambulatory SANTA SETHI Facility:[facility] Start: 08-10-2024 End: 08-10-2024 Emergency department patient visit Dr. Santa Sethi MD Work Phone: -Emergency Department Work Phone: Start: 07-19-2024 End: 07-19-2024 Refill Terrance Mccain MD Work Phone: Neurology Comment on above: Refill Request Start: 07-19-2024 End: 07-19-2024 Telephone encounter Terrance Mccain MD Work Phone: Neurology Comment on above: Medication Problem Start: 06-22-2024 End: 06-22-[address] Santa Sethi MD Work Phone: [facility] Work Phone: Start: 06-22-2024 End: 06-22-[address] Santa Sethi MD -Laboratory Work Phone: Start: 06-22-2024 End: 06-22-2024 ambulatory [facility] Facility:[facility] Start: 06-09-2024 End: 06-10-2024 Telephone encounter Terrance Mccain MD Work Phone: Neurology Comment on above: Insurance Authorizat ion (Needed for [employer]) Start: 05-26-2024 End: 05-26-2024 Refill Terrance Mccain MD Work Phone: Neurology Comment on above: Refill Request Start: 05-24-2024 End: 05-24-[address] Santa Sethi MD -Laboratory Work Phone: Start: 05-24-2024 End: 05-24-2024 ambulatory [facility] Facility:[facility] Start: 05-11-2024 End: 05-11-2024 Patient encounter procedure Fer NAIR -Laboratory, Specimen Work Phone: Start: 05-11-2024 End: 05-11-2024 Patient encounter procedure [facility] Work Phone: Start: 05-11-2024 End: 05-11-2024 ambulatory [facility] Facility:[facility] Start: 05-11-2024 End: 05-11-2024 ambulatory [facility] Facility:[facility] Start: 02-18-2024 End: 02-18-2024 ambulatory [facility] Facility:[facility] Start: 02-17-2024 End: 02-17-2024 Orders Only Valerie Kothari MD Work Phone: [facility] Comment on above: Hypokalemia (Primary Dx) Results Start: 02-16-2024 End: 02-16-2024 Office outpatient visit 40 minutes Valerie Kothari MD Work Phone: [facility] Comment on above: Primary hypertension (Primary Dx); Exertional dyspnea; Mixed hyperlipidemia; Venous stasis; Obesity, Class I, BMI 30-34.9 Start: 02-16-2024 End: 02-16-2024 ambulatory VALERIE KOTHARI Facility:[facility] Start: 02-04-2024 End: 02-04-2024 ambulatory [facility] Facility:[facility] Start: 02-04-2024 End: 02-04-2024 [facility] Facility:[facility] Start: 12-24-2023 End: 12-30-2023 Refill Valerie Kothari MD Work Phone: [facility] Comment on above: Refill Request Start: 12-22-2023 End: 03-24-2024 Telephone encounter Valerie Kothari MD Work Phone: [facility] Comment on above: Refill Request Start: 12-20-2023 End: 12-22-2023 Refill Valerie Kothari MD Work Phone: [facility] Comment on above: Refill Request Start: 12-18-2023 End: 12-18-2023 Telephone encounter Terrance Mccain MD Work Phone: Neurology Comment on above: Medication Authoriza tion (Methocarbamol 750MG tablets/) Start: 12-08-2023 End: 12-23-2023 Refill Valerie Kothari MD Work Phone: [facility] Cardiology [facility] Comment on above: Refill Request Start: 12-04-2023 End: 12-04-2023 [facility] Facility:[facility] Start: 12-04-2023 End: 12-04-2023 [facility] Facility:[facility] Start: 11-24-2023 End: 11-24-2023 Patient encounter procedure Valerie Kothari MD Work Phone: [facility] Cardiology [facility] Comment on above: Primary hypertension (Primary Dx); Mixed hyperlipidemia; Exertional dyspnea; Hypokalemia; Venous stasis Start: 11-24-2023 End: 11-24-2023 ambulatory CAROLINERula KOTHARI [facility] Start: 10-24-2023 End: 10-24-2023 ambulatory Santa Sethi Facility:[facility] Start: 10-20-2023 ambulatory Santa Sethi Facility :[facility] Start: 10-20-2023 End: 10-20-2023 ambulatory Santareed Sethi Facility:[facility] Start: 10-14-2023 End: 10-14-2023 ambulatory Terrance Mccain MD Work Phone: Neurology Comment on above: Migraine without aur a and without status migrainosus, not intractable (Primary Dx); Neck pain Start: 10-14-2023 End: 10-14-2023 Telemedicine consultation with patient Terrance Mccain MD Work Phone: Neurology Start: 07-30-2023 Non-patient / Non-visit Dr. Sri Sethi Work Phone: [facility] Start: 07-30-2023 End: 07-30-[address] Santa Sethi Work Phone: [facility] Work Phone: Start: 07-30-2023 End: 07-30-[address] Santa Sethi Work Phone: [facility]-Cardiovascula r Services Work Phone: Start: 07-07-2023 End: 07-07-[address] Santa Sethi Work Phone: [facility] Work Phone: Start: 07-07-2023 End: 07-07-[address] Santa Sethi Work Phone: [facility]-Laboratory, Specimen Work Phone: Start: 07-05-2023 End: 07-05-[address] Santa Sethi Work Phone: [facility] Work Phone: Start: 07-01-2023 End: 07-01-2023 Non-patient / Non-visit Dr. Santa Sethi Work Phone: [facility] Work Phone: Start: 07-01-2023 End: 07-01-[address] Santa Sethi Work Phone: [facility] Work Phone: Start: 07-01-2023 End: 07-01-[address] Santa Sethi Work Phone: [facility]-Pulmonary Services/Neurology Work Phone: Start: 06-30-2023 End: 06-30-[address] Santa Sethi Work Phone: [facility] Work Phone: Start: 06-25-2023 Telephone encounter Terrance dumont MD Work Phone: Neurology Comment on above: Medication Request Start: 06-04-2023 End: 06-04-2023 Emergency department patient visit Dr. Santa Sethi Work Phone: [facility]-Emergency Department Work Phone: Start: 06-04-2023 End: 06-04-2023 Patient encounter procedure Dr. Santa Sethi Work Phone: [facility] Work Phone: Start: 01-14-2023 End: 01-14-2023 Patient encounter procedure Lyly FULTONC Work Phone: [facility] Comment on above: Acute non-recurrent pansinusitis (Primary Dx) Start: 01-11-2023 Telephone encounter Vandana Delcid APRN.CNP Work Phone: [facility] Comment on above: Results Start: 01-09-2023 Telephone encounter Jennifer FULTONC Work Phone: Urology Comment on above: Medication Problem Start: 01-08-2023 End: 01-08-2023 Patient encounter procedure Petey Campos MD Work Phone: [facility] Comment on above: Urinary frequency (P rimary Dx) Start: 12-31-2022 Telephone encounter Terrance dumont MD Work Phone: Neurology Comment on above: Insurance Authorizat ion Start: 12-27-2022 Orders Only Terrance Mccain MD Work Phone: Neurology Start: 12-06-2022 Refill Lida Noel EXTENSION AGENT .JEWELRY SALES REPRESENTATIVE Work Phone: [facility] [place] Comment on above: Refill Request Start: 11-12-2022 End: 11-12-2022 Emergency department patient visit Dr. Kenney Atkins Work Phone: [facility]-Emergency Department Work Phone: Start: 11-12-2022 End: 11-12-2022 Patient encounter procedure Altaf Gianna EXTENSION AGENT.JEWELRY SALES REPRESENTATIVE Work Phone: [facility] Comment on above: Procedure not kimberly d out (Primary Dx) Start: 11-12-2022 Non-patient / Non-visit Dr. Tiffany Atkins Work Phone: [facility] Start: 11-12-2022 End: 11-12-2022 Admission to same day surgery center Dr. Kenney Atkins Work Phone: [facility]-Endoscopy Work Phone: Start: 11-12-2022 End: 11-12-[address] Kenney Atkins Work Phone: [facility] Work Phone: Start: 11-01-2022 End: 11-01-2022 ambulatory Terrance Mccain MD Work Phone: Neurology Comment on above: Migraine without aur a and without status migrainosus, not intractable (Primary Dx); Neck pain Start: 11-01-2022 End: 11-01-2022 Telemedicine consultation with patient Terrance Mccani MD Work Phone: [facility] Start: 10-22-2022 End: 10-22-[address] Kenney Atkins Work Phone: [facility] Work Phone: Start: 10-08-2022 End: 10-08-[address] Kenney Atkins Work Phone: [facility] Work Phone: Start: 10-08-2022 End: 10-08-[address] Kenney Atkins Work Phone: [facility]-Laboratory Start: 09-11-2022 End: 09-11-[address] Kenney Atkins Work Phone: [facility] [place] Start: 08-28-2022 Non-patient / Non-visit Dr. Tiffany Atkins Work Phone: [facility] Start: 08-21-2022 Refill Terrance Mccain MD Work Phone: Neurology Comment on above: Refill Request Start: 07-23-2022 End: 07-23-2022 Patient encounter procedure Kenney Atkins MD Work Phone: [facility] Comment on above: Recurrent infections (Primary Dx); Primary hypertension; Mixed hyperlipidemia; VARUN (obstructive sleep apnea) Start: 07-09-2022 Refill Terrance Mccain MD Work Phone: Neurology Comment on above: Refill Request Start: 06-07-2022 Telephone encounter Kenney ford MD Work Phone: [facility] Comment on above: Results Start: 06-04-2022 End: 06-04-2022 Patient encounter procedure Kenney Atkins MD Work Phone: [facility] Comment on above: Uncontrolled hyperte nsion (Primary Dx); Other fatigue; Vitamin D deficiency; Sinusitis, unspecified chronicity, unspecified location; Recurrent UTI; Mixed hyperlipidemia; Vitamin B12 deficiency Start: 05-17-2022 End: 05-17-2022 Patient encounter procedure Nellie Anahuacmichael MANZANO.JEWELRY SALES REPRESENTATIVE Work Phone: OB/Gynecology Comment on above: Vulvar lump (Primary Dx) Start: 05-15-2022 Telephone encounter Kenney ford MD Work Phone: [facility] Comment on above: Results Start: 05-13-2022 Telephone encounter Kenney ford MD Work Phone: [facility] Comment on above: Patient Request Start: 05-02-2022 Refill Kenney Penn Work Phone: [facility] [place] Comment on above: Refill Request Start: 04-29-2022 End: 04-29-2022 Patient encounter procedure Petey Campos MD Work Phone: [facility] Comment on above: Viral illness (Prima ry Dx); Wheezing Start: 04-24-2022 Telephone encounter Nicloe Webster APRN.JEWELRY SALES REPRESENTATIVE Work Phone: [facility] Comment on above: Results Start: 04-23-2022 End: 04-23-2022 Patient encounter procedure Margaux Aaron APRN.JEWELRY SALES REPRESENTATIVE Work Phone: [facility] Comment on above: URI, acute (Primary Dx); Bacterial sinusitis Start: 04-04-2022 Refill Terrance Mccain MD Work Phone: Neurology Comment on above: Refill Request Start: 03-12-2022 End: 03-12-2022 ambulatory MORRO OTTO Facility:[facility] Start: 02-26-2022 End: 02-26-2022 ambulatory MORRO OTTO Facility:[facility] Start: 02-12-2022 End: 02-12-2022 Patient encounter procedure Kenney Atkins MD Work Phone: [facility] [place] Comment on above: Acute non-recurrent maxillary sinusitis (Primary Dx); Need for influenza vaccination; Mixed hyperlipidemia; Encounter for screening for diabetes mellitus Start: 02-11-2022 Orders Only Morro Otto MD Work Phone: Pain Management Comment on above: Primary osteoarthrit is of both knees (Primary Dx); Cervical spondylosis without myelopathy Cervical spondylosis without myelopathy (Primary Dx) Start: 02-08-2022 Telephone encounter Jennifer mayen PA-C Work Phone: Urology Comment on above: medication instructi on Start: 01-25-2022 Refill Kenney Penn Work Phone: [facility] [place] Comment on above: Refill Request Start: 01-17-2022 Telephone encounter Morro rivers MD Work Phone: Pain Management Comment on above: Appointment Start: 01-10-2022 End: 01-10-2022 Patient encounter procedure Teresa Rodriguez PA-C Work Phone: [facility] Comment on above: Cervical spondylosis without myelopathy (Primary Dx); Arthropathy of cervical facet joint Start: 12-17-2021 Telephone encounter Kenney ford MD Work Phone: [facility] [place] Comment on above: Patient Request Start: 12-14-2021 End: 12-14-2021 Patient encounter procedure Kenney Atkins MD Work Phone: [facility] [place] Comment on above: Neck pain (Primary D x); Primary hypertension Start: 11-30-2021 Refill Terrance Mccain MD Work Phone: Neurology Comment on above: Refill Request Patient Question Start: 11-26-2021 End: 11-26-2021 [facility] Start: 11-20-2021 Refill Kenney Penn Work Phone: [facility] [place] Comment on above: Refill Request Start: 11-13-2021 End: 11-13-2021 Patient encounter procedure Kenney Atkins MD Work Phone: [facility] [place] Comment on above: H. pylori infection (Primary Dx); Chronic diarrhea; Essential hypertension; Hypokalemia; Recurrent UTI Start: 11-12-2021 Telephone encounter Jennifer mayen PA-C Work Phone: Urology Comment on above: Orders; Results Start: 11-09-2021 End: 11-09-2021 Patient encounter procedure Jennifer Correiatiarra NAIR-Renaldo Work Phone: Urology Comment on above: Atrophic vaginitis ( Primary Dx); Recurrent UTI; Dysuria Dysuria Start: 11-01-2021 End: 11-01-2021 Patient encounter procedure Terrance Mccain MD Work Phone: Neurology Comment on above: Migraine without aur a and without status migrainosus, not intractable (Primary Dx) Start: 10-17-2021 Telephone encounter Jennifer Correia tiarra MCGREGOR Work Phone: Urology Comment on above: UTI and urinary inco ntinence Start: 09-13-2021 Refill Terrance Mccain MD Work Phone: Neurology Comment on above: Refill Request Start: 09-05-2021 Telephone encounter Terrance dumont MD Work Phone: Neurology Comment on above: Appointment Start: 07-03-2021 End: 07-03-2021 Subsequent hospital visit by physician Xr [facility] Work Phone: Radiology Comment on above: Fatigue, unspecified type [R53.83] Start: 05-08-2021 Telephone encounter Kenney ford MD Work Phone: [facility] [place] Comment on above: Patient Question Start: 04-24-2020 End: 04-24-2020 Patient encounter procedure ADITYA Ladi BANDAR [facility] Procedures Date Procedure Procedure Detail Performing Clinician Start: 09-16-2024 Urnls dip stick/tabl et reagent auto microscopy Dr. Santa Sethi MD Work Phone: Start: 09-16-[address] Santa Sethi MD Work Phone: Start: 08-10-2024 X-ray of ankle, thre e or more views Dr. Santa Sethi MD Work Phone: Start: 05-24-[address] Santa Sethi MD Work Phone: Start: 05-11-[address] Santa Sethi MD Work Phone: Start: 07-30-2023 Radionuclide imaging of perfusion of myocardium under exercise stress Dr. Santa Sethi Work Phone: Start: 07-05-[address] Santa Sethi Work Phone: Start: 06-04-2023 Computed tomography of abdomen and pelvis with intravenous contrast Dr. Santa Sethi Work Phone: Start: 06-04-[address] Santa Sethi Work Phone: Start: 01-08-2023 Urnls dip stick/tabl et rgnt auto w/o microscopy Lyly FULTONC Work Phone: Start: 11-12-2022 X-ray of both feet Dr. Kenney Atkins Work Phone: Start: 11-12-[address] Kenney Atkins Work Phone: Start: 04-29-2022 COVID WITH FLUA+B, ROUTINE Petey Campos MD Work Phone: Start: 04-23-2022 COVID WITH FLUA+B, ROUTINE Margaux Aaron APRN.CNP Work Phone: Start: 02-12-2022 INFLUENZA SEASONAL QUADRIVALENT HIGH DOSE AGE 65+ Kenney Atkins MD Work Phone: Start: 11-26-2021 Plain X-ray of shoulder Start: 11-26-2021 CT cervical spine without contrast Start: 11-09-2021 Urnls dip stick/tabl et rgnt auto w/o microscopy Jennifer FULTONC Work Phone: Start: 07-17-2021 End: 07-17-2021 BP scrn no perf at interval Adarsh Conrad MD Work Phone: Start: 07-17-2021 End: 07-17-2021 Calc BMI abv up hoang f/u Adarsh Conrad MD Work Phone: Start: 07-17-2021 End: 07-17-2021 Current tobacco non-user cad cap copd pv dm Adarsh Conrad MD Work Phone: Start: 07-17-2021 End: 07-17-2021 Docrev cur meds by samantha Conrad MD Work Phone: Start: 07-17-2021 End: 07-17-2021 No doc of pain Adarsh Conrad MD Work Phone: Start: 07-17-2021 End: 07-17-2021 Patient encounter procedure Adarsh Conrad MD Work Phone: Start: 07-03-2021 Radiologic exam ches t 2 views Robin Orozco MD Work Phone: Start: 06-12-2021 End: 06-12-2021 [...] Treatment Date Care Activity Detail Author Start: 02-15-2027 Diabetes Screening Diabetes Screenjuan abraham [facility] Start: 05-14-2025 DIABETES SCREEN DIABETES SCREEN [facility] Start: 05-14-2025 Diabetes Screening Diabetes Screenjuan abraham [facility] Start: 02-18-2025 End: 02-18-2025 Patient encounter procedure 02/18/2025 11:00 AM EDT Office Visit [facility] [address] [place] [address] Valerie Kothari MD [address] [id number] 1 Yr f/u [facility] Comment on above: 1 Yr f/u Start: 12-27-2024 Influenza vaccination Influenz a Vaccine (Season Ended) [facility] Start: 10-22-2024 End: 10-22-2024 Patient encounter procedure 10/22/2024 2:30 PM EDT Office Visit Neurology [address] [place], [place] [id number] [place] [id number] [place] [address] Annual follow up Neurology Comment on above: Annual follow up Start: 10-12-2024 End: 10-12-2024 Patient encounter procedure 10/12/2024 10:30 AM EDT Office Visit Urology [address] [place] [address] Jennifer Ledesma PA-C [address] [place] [address] Yearly check recurrent UTI and atrophic vaginitis pt also with flank pain Urology Comment on above: Yearly check recurre nt UTI and atrophic vaginitis pt also with flank pain Start: 09-16-2024 Patient referral [facility] Work Phone: Start: 09-06-2024 End: 09-06-2024 Patient encounter procedure 09/06/2024 11:00 AM EDT Office Visit Orthopaedics [address] [place] [address] Peter Patton MD [address] [place] [address] 4 week follow up Orthopaedics Comment on above: 4 week follow up Start: 08-10-2024 [facility] Start: 04-28-2024 Advance Directive Discussion Advance Directive Discussion [facility] Start: 02-16-2024 End: 05-17-2024 Lipid 1996 panel - Serum or Plasma LIPID PANEL BASIC Lab Routine Mixed hyperlipidemia Expected: 02/16/2024, Expires: 05/17/2024 [facility] Work Phone: Comment on above: Expected: 02/16/2024 , Expires: 05/17/2024 Start: 02-16-2024 End: 02-16-2024 Patient encounter procedure [facility] Comment on above: Return in about 3 mo nths (around 02/24/2024), marsha. Return in about 3 mo nths (around 02/24/2024), marsha. /sab Start: 12-28-2023 Covid-19 Vaccine ( season) Covid-19 Vaccine ( season) [facility] Start: 12-28-2023 Covid-19 Vaccine ( season) Covid-19 Vaccine ( season) [facility] Start: 12-28-2023 Influenza vaccination [facility] Start: 11-29-2023 DIABETES SCREEN DIABETES SCREEN [facility] Start: 11-24-2023 End: 02-23-2024 Thyrotropin [Units/volume] in Serum or Plasma THYROID STIMULATING HORMONE Lab Routine Exertional dyspnea Expected: 11/24/2023, Expires: 02/23/2024 [facility] Work Phone: Comment on above: Expected: 11/24/2023 , Expires: 02/23/2024 Start: 06-04-2023 [facility] Start: 06-04-2023 [facility] Start: 06-04-2023 Bacteria identified in Urine by Culture [facility] Start: 04-28-2023 Advance Directive Discussion Advance Directive Discussion [facility] Start: 04-28-2023 Depression Assessment Depression Ass essment [facility] Start: 02-12-2023 ANNUAL PCP TEAM CHRONIC DISEASE VISIT ANNUAL PCP TEAM CHRONIC DISEASE VISIT [facility] Start: 12-27-2022 Covid-19 Vaccine () Covid-19 Vaccine () [facility] Start: 12-27-2022 Influenza vaccination [facility] Start: 12-14-2022 ANNUAL PCP TEAM CHRONIC DISEASE VISIT ANNUAL PCP TEAM CHRONIC DISEASE VISIT [facility] Start: 11-13-2022 ANNUAL PCP TEAM CHRONIC DISEASE VISIT ANNUAL PCP TEAM CHRONIC DISEASE VISIT [facility] Start: 11-12-2022 Patient discharge [facility] Start: 07-10-2022 ANNUAL PCP TEAM CHRONIC DISEASE VISIT ANNUAL PCP TEAM CHRONIC DISEASE VISIT [facility] Start: 07-10-2022 BP CONTROLLED (<130/80) BP CONTROLLED (<130/80) [facility] Start: 05-15-2022 End: 07-15-2022 Basic metabolic 2000 panel - Serum or Plasma BASIC METABOLIC PNL Lab Routine Mixed hyperlipidemia Expected: 05/15/2022, Expires: 07/15/2022 [facility] Work Phone: Comment on above: Expected: 05/15/2022 , Expires: 07/15/2022 Start: 05-15-2022 End: 07-15-2022 CBC W Auto Differential panel - Blood CBC + DIFF Lab Routine Mixed hyperlipidemia Encounter for screening for diabetes mellitus Expected: 05/15/2022, Expires: 07/15/2022 [facility] Work Phone: Comment on above: Expected: 05/15/2022 , Expires: 07/15/2022 Start: 05-15-2022 End: 07-15-2022 Lipid 1996 panel - Serum or Plasma LIPID PANEL BASIC Lab Routine Mixed hyperlipidemia Expected: 05/15/2022, Expires: 07/15/2022 [facility] Work Phone: Comment on above: Expected: 05/15/2022 , Expires: 07/15/2022 Start: 04-28-2022 ADVANCE DIRECTIVE DISCUSSION ADVANCE DIRECTIVE DISCUSSION [facility] Start: 04-28-2022 DEPRESSION ASSESSMENT DEPRESSION ASS ESSMENT [facility] Start: 12-27-2021 Influenza vaccination INFLUENZA (#1) [facility] Start: 12-05-2021 Urine microalbumin profile DTAP,TDAP,TD (1 - Tdap) [facility] Comment on above: Postponed from 08/10 (Insurance Coverage) Start: 11-13-2021 End: 01-13-2022 Helicobacter pylori [Quantitative] in Stomach by urea breath test BREATH TEST H PYLORI Lab Routine H. pylori infection Expected: 11/13/2021, Expires: 01/13/2022 [facility] Work Phone: Comment on above: Expected: 11/13/2021 , Expires: 01/13/2022 Start: 07-17-2021 End: 07-17-2021 Patient encounter procedure Appointment [facility] Work Phone: Start: 06-12-2021 End: 06-12-2021 Patient encounter procedure Appointment [facility] Work Phone: Start: 06-12-2021 End: 06-12-2021 Radex hand minimum 3 views XR HAND 3+ VWS-RT [facility] Work Phone: Start: 04-28-2021 ADVANCE DIRECTIVE DISCUSSION ADVANCE DIRECTIVE DISCUSSION [facility] Start: 04-28-2021 DEPRESSION ASSESSMENT DEPRESSION ASS ESSMENT [facility] Start: 03-20-2019 Adult depression screening assessment DEPRESSION SCREENING [facility] Start: 2016 RSV Vaccine (1 - 1-dose 75+ series) RSV Vaccine (1 - 1-dose 75+ series) [facility] Start: 04-17-2013 Screening for osteoporosis Bone Density Screening [facility] Start: 08-11-2007 Urine microalbumin profile [facility] Start: 2001 RSV Vaccine (1 - 1-dose 60+ series) RSV Vaccine (1 - 1-dose 60+ series) [facility] Start: 1959 Anxiety Screening Anxiety Screening [facility] Start: 1959 BP CONTROLLED (<130/80) BP CONTROLLED (<130/80) [facility] Start: 1959 Depression Screening Depression Scre ening [facility] Start: 1946 COVID-19 VACCINE (#1) COVID-19 VACCI NE (#1) [facility] Start: 1941 COVID-19 VACCINE (#1) COVID-19 VACCI NE (#1) [facility] Bacteria identified in Urine by Culture URINE CULTURE Microbiology Routine Dysuria Ordered: 11/09/2021 [facility] Work Phone: Comment on above: Ordered: 11/09/2021 Bacteria identified in Urine by Culture URINE CULTURE Microbiology Routine Urinary frequency 01/08/2023 2:38 PM EDT [facility] Work Phone: CBC W Auto Differential panel - Blood [facility] Colonoscopy [facility] CT angiography of coronary arteries [facility] Helicobacter pylori Ag [Presence] in Stool by Immunoassay H PYLORI AG BY EIA,STOOL Microbiology Routine H. pylori infection 11/13/2021 11:42 AM EDT [facility] Work Phone: Patient Education [facility] Work Phone: Patient referral [facility] Work Phone: POST VOID RESIDUAL POST VOID RES IDUAL Procedures Routine Dysuria Ordered: 11/09/2021 [facility] Work Phone: Comment on above: Ordered: 11/09/2021 Urinalysis complete panel - Urine [facility] End: 09-30-2025 XR Ankle - left AP and Lateral and oblique XR ANKLE GENERAL 3V AP/LAT/OBL LEFT Radiology Routine Closed avulsion fracture of left ankle, initial encounter 1 Occurrences starting 08/31/2024 until 09/30/2025 [facility] Work Phone: Comment on above: 1 Occurrences starti ng 08/31/2024 until 09/30/2025 XR Ankle - left AP a nd Lateral and oblique XR ANKLE GENERAL 3V AP/LAT/OBL LEFT Radiology Routine Closed avulsion fracture of left ankle, initial encounter 09/06/2024 10:23 AM EDT [facility] Work Phone: [facility] Immunizations Immunization Date Immunization Notes Care Provider [facility] 02-12-2022 influenza, high-dose , quadrivalent vaccine (FLUZONE HIGH DOSE QUADRIVALENT) Kenney Atkins MD Work Phone: [facility] 02-12-2022 influenza virus vacc ine, unspecified formulation Petey Campos MD Work Phone: [facility] 11-28-2020 zoster vaccine recombinant Terrance Mccain MD Work Phone: [facility] Work Phone: 08-03-2020 zoster vaccine recombinant Terrance Mccain MD Work Phone: [facility] Work Phone: 01-04-2020 influenza, high-dose , quadrivalent vaccine (FLUZONE HIGH DOSE QUADRIVALENT) Terrance Mccain MD Work Phone: [facility] 02-02-2019 influenza, high dose seasonal, preservative-free Terrance Mccain MD Work Phone: [facility] 02-23-2015 influenza, high dose seasonal, preservative-free Terrance Mccain MD Work Phone: [facility] 02-04-2014 influenza, injectabl e, quadrivalent, preservative free Terrance Mccain MD Work Phone: [facility] 03-19-2013 influenza virus vacc ine, unspecified formulation Terrance Mccain MD Work Phone: [facility] 03-03-2012 influenza virus vacc ine, unspecified formulation Terrance Mccain MD Work Phone: [facility] 01-29-2011 influenza virus vacc ine, unspecified formulation Terrance Mccain MD Work Phone: [facility] 02-09-2010 influenza virus vacc ine, unspecified formulation Terrance Mccain MD Work Phone: [facility] Work Phone: 08-10-2007 tetanus and diphther ia toxoids, adsorbed, preservative free, for adult use (2 Lf of tetanus toxoid and 2 Lf of diphtheria toxoid) Terrance Mccain MD Work Phone: [facility] 03-06-2007 influenza virus vacc ine, unspecified formulation Terrance Mccain MD Work Phone: [facility] Work Phone: 03-15-2005 influenza virus vacc ine, unspecified formulation Terrance Mccain MD Work Phone: [facility] Work Phone: 05-06-1994 pneumococcal polysaccharide vaccine, 23 valent Terrance Mccain MD Work Phone: [facility] Work Phone: Payers Date Payer Category Payer Self-pay [id number] 2014 Private Health Insurance [facility] AAR SUPPLEMENT [id number] 2014-Present [phone] [address] [place] [address] Indemnity [id number] 2014 Private Health Insurance [id number] 2014 Unknown [id number] 2007 Medicare MEDICARE MEDICAR E A AND B [id number] 2007-Present [phone] [address] [address] [place] [address] Medicare [id number] 2007 Medicare [id number] 2006 Medicare [id number] 1941 Unknown [id number] Unknown [id number] Unknown [id number] Unknown [id number] Unknown [id number] Unknown [id number] .462 Unknown [id number] .462 Unknown [id number] .462 Unknown [id number] .462 Unknown [id number] .[id number] Unknown [id number] .462 Unknown [id number] .462 Unknown [id number] .462 Unknown [id number] .462 Unknown [id number] .[id number] Unknown [id number] Unknown [id number] Unknown [id number] .462 Social History Date Type Detail Facility Start: 11-26-2021 End: 07-05-2023 Assertion Unknown if ever smoked [facility] Work Phone: Start: 11-18-2011 End: 12-14-2021 Tobacco smoking status NHIS Never smoked tobacco [facility] Start: 06-29-2021 End: 07-10-2021 Alcohol intake Current non-drinker of alcohol (finding) [facility] Start: 1940 Sex Assigned At Not on file [facility] Start: 05-30-2021 End: 03-12-2022 Exposure to SARS-CoV-2 (event) Not sure [facility] Start: 1940 Sex Assigned At Female [facility] Start: 11-18-2011 End: 12-14-2021 Tobacco use and exposure Smokeless tobacco non-user [facility] Start: 11-01-2022 End: 11-12-2022 History of Social function [facility] Start: 11-01-2022 End: 11-12-2022 Tobacco use panel [facility] Adult Depression Screening Assessment 0 [facility] Start: 04-22-2023 End: 09-06-2024 Alcohol intake Ex-drinker (finding) [facility] Start: 07-07-2024 End: 08-10-2024 Sex Female (finding) [facility] NEGATED: Highlighted rowStart: 06-12-2021 End: 06-12-2021 Alcohol use Alcohol use [facility] Work Phone: NEGATED: Highlighted rowStart: 06-12-2021 End: 06-12-2021 Details of drug misuse behavior Details of drug misuse behavior [facility] Work Phone: NEGATED: Highlighted rowStart: 06-12-2021 End: 06-12-2021 Employment detail Employment detail [facility] Work Phone: NEGATED: Highlighted rowStart: 06-12-2021 End: 06-12-2021 Assertion Never smoker [facility] Work Phone: NEGATED: Highlighted rowStart: 07-17-2021 End: 07-17-2021 Employment detail Employment detail Maria C [facility] Work Phone: Medical Equipment Procedure Code Equipment Code Equipment Origin al Text Equipment Identifier Dates Yevgeniy Bn Smpx P Ra dpq Fd Strl - [id number] Start: 02-02-2014 Comp Fem 4 Rt Kn Ps Yevgeniy Trthln - [id number] Start: 02-02-2014 Ins Tib 4 11mm K n X3 Ps Trthln - [id number] Start: 02-02-2014 Ins Tib 4 11mm K n X3 Ps Trthln - [id number] Start: 02-23-2014 Comp Pat 3 10mm 32mm Asym - [id number] Start: 02-02-2014 Baseplt Tib Trth ln 4 Kn Yevgeniy - [id number] Start: 02-02-2014 Goals Date Patient Goal Desired Activity /State Personal health goal Functional Status Date Assessment Result Facility 11-21-2014 Are you deaf, or do you have serious difficulty hearing Yes 11/21/2014 9:16 AM Seth Prado LPN Yes [facility] 11-21-2014 Are you blind, or do you have serious difficulty seeing, even when wearing glasses No 11/21/2014 9:16 AM Seth Prado LPN No [facility] 11-21-2014 Do you have serious difficulty walking or climbing stairs No 11/21/2014 9:16 AM Seth Prado LPN No [facility] 11-21-2014 Do you have difficul ty dressing or bathing No 11/21/2014 9:16 AM Seth Prado LPN No [facility] 11-21-2014 Because of a physica l, mental, or emotional condition, do you have difficulty doing errands alone such as visiting a physician's office or shopping No 11/21/2014 9:16 AM Seth Prado LPN No [facility] Mental Status Date Assessment Result Facility 11-12-2022 Cognitive function Voice/Name [facility] Work Phone: 11-12-2022 Cognitive function Patient Marion diaz Person;Place;Time [facility] Work Phone: 11-21-2014 Because of a physica l, mental, or emotional condition, do you have serious difficulty concentrating, remembering, or making decisions No 11/21/2014 9:16 AM EDT Seth Samano LPN No [facility] Clinical Notes 03-30-2016 to 09-16-2024 Note Date & Type Note Facility 09-16-2024 Evaluation note Diagnosis Onset Date Resolution Degenerative disc disease acute September 16, 2024 9:12am High cholesterol acute August 9:12am Osteoarthritis acute September 16, 2024 9:12am Chronic GERD chronic September 16 9:12am Hypertension chronic September 16 9:12am [facility] Work Phone: 1(524) 479-652105-12-2025 NoteHNO ID: [id number] Author: PETER PATTON MD Service: ? Author Type: Physician Type: Progress Notes Filed: 09/27/2024 08:54 Note Text: Peter Patton MD Department of Orthopaedics Orthopaedics [address] [facility] [address] Dept: [phone] Dept September 06, 2024 CHIEF COMPLAINT: Follow Up and Fracture of the Left Ankle (4 weeks 5 days post fracture left ankle ) HPI: HPI Patient here for follow up Left ankle fracture. Stopped wearing cristine wrap over the weekend. Continuing to wear her tennis shoes. Taking no med's for the pain. New x-rays done today. She is doing better from the left ankle but she still has concerns about the swelling in her legs. She states that her wet press tender has said is got nothing to do with her heart and a kidney doctor told her it has not nothing to do with her kidneys. She has not had a vascular workup ASSESSMENT: M79.89 Left leg swelling (primary encounter diagnosis) M25.572 Acute left ankle pain PLAN: I did place a vascular medicine consultation just simply to follow-up with her lower extremity swelling. It may be a situation where she just continues to get her daily activities and and requires compression hose on the leg. OBJECTIVE: Ms. Kendal Taylor is a pleasant 84 year old in no apparent distress. Gen:There were no vitals taken for this visit. nl development, non obese, no deformities ENT: Normocephalic, normal hearing, moist mucosa CV: Pulses:DP/PT= 2+ and symmetric, capillary refill < 2 secs, no peripheral edema/varicosities Skin: no rash, bruising or lesions. Good turgor. Psych: cooperative and appropriate, alert and oriented x 3, good mood and affect. Musculoskeletal: Varus alignment of the left knee. Patient walks with a bit of an antalgic gait to the left. She has diffuse swelling throughout the lower extremity, symmetrical to the right leg, may be slightly worse on the left. She has some very minor tenderness palpation along the lateral ankle and malleolus. Imaging: IMPRESSION: There may be a healing fracture at the tip of the lateral malleolus. Remaining bones are intact with normal alignment. Mild tibiotalar osteoarthritis. Calcaneal enthesophytes. Ripsaw Matcher: TRANG Transcribe Date/Time: Sep 09 2024 8:31P Dictated by : JAYNA ROY MD This examination was interpreted and the report reviewed and electronically signed by: JAYNA ROY MD on Sep 09 2024 8:32PM EST Results-Findings * * *Final Report* * * DATE OF EXAM: Sep 06 2024 10:23AM [id number] - XR ANKLE 3V AP/LAT/OBL LT / PROCEDURE REASON: Closed avulsion fracture of left ankle, initial encounter * * * * Physician Interpretation * * * * EXAMINATION / TECHNIQUE: XR ANKLE 3V AP/LAT/OBL LT HISTORY: pt states left ankle follow up fell last month Closed avulsion fracture of left ankle, initial encounter COMPARISON: None. RESULT: See impression Supporting Subjective Information Below: Past Medical History: PAST MEDICAL HISTORY Diagnosis Date Aortic valve stenosis Atrial septal aneurysm Atrophic vaginitis 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 (HCC) 12/24/2010 Carpal tunnel syndrome, right 06/05/2015 Contact [...] joint replacement status 04/04/2014 Macular edema 08/17/2010 Migraines Mitral valve regurgitation Osteoarthritis OSTEOPOROSIS NOS 08/09/2005 Other forms of dyspnea Personal history of colonic polyps 11/11/2005 Colonoscopy - 11 October 2005 - Repeat in five years PURE HYPERCHOLESTEROLEM 08/09/2005 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- treated w/focal laser Right carpal tunnel syndrome 04/03/2015 Sleep apnea Snoring Trigger ring finger of right hand 06/05/2015 Trochanteric bursitis of left hip 07/19/2016 Unspecified migraine Unspecified sleep apnea 2004 hypoxic sleep apnea Urinary incontinence Venous stasis Wound infection after surgery 03/07/2014 Past Surgical History: PAST SURGICAL HISTORY Procedure Laterality Date ANTERIOR COLPORRAPHY RPR CYSTOCELE W/CYSTO 2003 Cystocele repair ARTHROSCOPY KNEE DIAGNOSTIC W/WO SYNOVIAL BX SPX 2004 Arthroscopy, knee right ARTHROSCOPY KNEE DIAGNOSTIC W/WO SYNOVIAL BX SPX 1994 Arthroscopy, knee left and right COLONOSCOPY FLX DX W/COLLJ SPEC WHEN PFRMD 10/01/2002 Colonoscopy COLONOSCOPY FLX DX W/COLLJ SPEC WHEN PFRMD 01/09/2011 Colonoscopy COLONOSCOPY W/BIOPSY SINGLE/MULTIPLE 10/11/05 Diverticulosis CYSTOSCOPY 12 (more content not included)...[facility]05-12-2025 History of Present illness Narrative* Peter Patton MD - 09/06/2024 11:03 AM EDT Peter Patton MD Department of Orthopaedics Orthopaedics [address] [facility] [address] Dept: [phone] Dept September 06, 2024 CHIEF COMPLAINT: Follow Up and Fracture of the Left Ankle (4 weeks 5 days post fracture left ankle ) HPI: HPI Patient here for follow up Left ankle fracture. Stopped wearing cristine wrap over the weekend. Continuing to wear her tennis shoes. Taking no med's for the pain. New x-rays done today. She is doing better from the left ankle but she still has concerns about the swelling in her legs. She states that hercardiologist has said is got nothing to do with her heart and a kidney doctor told her it has not nothing to do with her kidneys. She has not had a vascular workup ASSESSMENT: M79.89 Left leg swelling (primary encounter diagnosis) M25.572 Acute left ankle pain PLAN: I did place a vascular medicine consultation just simply to follow-up with her lower extremity swelling. It may be a situation where she just continues to get her daily activities and and requires compression hose on the leg. OBJECTIVE: Ms. Kendal Taylor is a pleasant 84 year old in no apparent distress. Gen:There were no vitals taken for this visit. nl development, non obese, no deformities ENT: Normocephalic, normal hearing, moist mucosa CV: Pulses:DP/PT= 2+ and symmetric, capillary refill < 2 secs, no peripheral edema/varicosities Skin: no rash, bruising or lesions. Good turgor. Psych: cooperative and appropriate, alert and oriented x 3, good mood and affect. Musculoskeletal: Varus alignment of the left knee. Patient walks with a bit of an antalgic gait to the left. She hasdiffuse swelling throughout the lower extremity, symmetrical to the right leg, may be slightly worse on the left. She has some very minor tenderness palpation along the lateral ankle and malleolus. Imaging: IMPRESSION: There may be a healing fracture at the tip of the lateral malleolus. Remaining bones are intact with normal alignment. Mild tibiotalar osteoarthritis. Calcaneal enthesophytes. Ripsaw Matcher: TRANG Transcribe Date/Time: Sep 09 2024 8:31P Dictated by : JAYNA ROY MD This examination was interpreted and the report reviewed and electronically signed by: JAYNA ROY MD on Sep 09 2024 8:32PM EST Results-Findings * * *Final Report* * * DATE OF EXAM: Sep 06 2024 10:23AM [id number] - XR ANKLE 3V AP/LAT/OBL LT / PROCEDURE REASON: Closed avulsion fracture of left ankle, initial encounter * * * * Physician Interpretation * * * * EXAMINATION / TECHNIQUE: XR ANKLE 3V AP/LAT/OBL LT HISTORY: pt states left ankle follow up fell last month Closed avulsion fracture of left ankle, initial encounter COMPARISON: None. RESULT: See impression Supporting Subjective Information Below: Past Medical History: PAST MEDICAL HISTORY Diagnosis Date Aortic valve stenosis Atrial septal aneurysm Atrophic vaginitis 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 (HCC) 12/24/2010 Carpal tunnel syndrome, right 06/05/2015 Contact [...] joint replacement status 04/04/2014 Macular edema 08/17/2010 Migraines Mitral valve regurgitation Osteoarthritis OSTEOPOROSIS NOS 08/09/2005 Other forms of dyspnea Personal history of colonic polyps 11/11/2005 Colonoscopy - 11 October 2005 - Repeat in five years PURE HYPERCHOLESTEROLEM 08/09/2005 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- treated w/focal laser Right carpal tunnel syndrome 04/03/2015 Sleep apnea Snoring Trigger ring finger of right hand 06/05/2015 Trochanteric bursitis of left hip 07/19/2016 Unspecified migraine Unspecified sleep apnea 2004 hypoxic sleep apnea Urinary incontinence Venous stasis Wound infection after surgery 03/07/2014 Past Surgical History: PAST SURGICAL HISTORY Procedure Laterality Date ANTERIOR [...] B/L bunion surgery - Dr. Solis - [facility] PAST SURGICAL HISTORY OF 02/02/2014 right TKA & I&D of right TKA on 02/23/14 PAST SURGICAL HISTORY OF 06/02/2015 right ring trigger finger release [facility] N/CARPAL TUNNEL SURG 06/02/2015 right carpal tunnel release SKIN BX, 1 LESION 03/10/12 Left cheek skin lesion bx TOTAL ABDOMINAL HYSTERECT W/WO RMVL TUBE OVARY 1980 Medications: Current Outpatient Medications Medication Sig erenumab-aooe 140 mg/mL subcutaneous auto-injector (AIMOVIG) Inject 1 mL subcutaneously once every month. Do not shake. methocarbamol (ROBAXIN) 750 mg tablet Take 1 tablet by mouth two times a day as needed. rizatriptan (MAXALT) 10 mg tablet Take 1 tablet (10 mg) by mouth as needed (at onset of headache. May repeat after 2 hours.). Do not exceed 30 mg per day. potassium chloride ER (KLOR-CON M10) 10 mEq tablet Take 1 tablet by mouth two times a day. chlorthalidone (HYGROTON) 50 mg tablet Take 1 tablet by mouth once daily. ezetimibe (ZETIA) 10 mg tablet Take 1 tablet by mouth once daily. estradiol (E2) emollient cream 0.2 mg/gram (CPD) Finger-Tip amount applied to indicated area at bedtime every other day benzonatate (TESSALON PERLES) 100 mg capsule Take 2 capsules by mouth three times daily as needed. spironolactone (ALDACTONE) 25 mg tablet Take 1 tablet by mouth once daily. fluconazole (DIFLUCAN) 150 mg tablet Take 1 tablet by mouth Every 3 Days. colestipol (COLESTID) 1 gram tablet Take 3 tablets by mouth once daily. sucralfate (CARAFATE) 1 gram tablet Take 1 tablet by mouth twice daily. ketoconazole (NIZORAL) 2 % shampoo Apply to scalp rash every other day until clear- Lather and rinse and then lather 2nd time and leave set on hair for 5 min and rinse again. riboflavin, vitamin B2, (VITAMIN B2) 100 mg tab Take 200 mg by mouth twice daily. MAGNESIUM ORAL Take 500 mg by mouth daily at bedtime. coenzyme Q10 (COENZYME Q-10) 100 mg cap capsule Take 200 mg by mouth once daily. HYDROcodone-acetaminophen (NORCO) 5-325 mg per tablet Take 1 tablet by mouth every 8 hours as needed for pain. omeprazole (PRILOSEC) 40 mg capsule TAKE 1 CAPSULE DAILY (Patient taking differently: Take 20 mg bymouth once daily.) meclizine (ANTIVERT) 12.5 mg tab Take 1 tablet by mouth three times daily as needed (dizziness). acetaminophen (TYLENOL ORAL) Take by mouth as needed. cholecalciferol, vitamin D3, (VITAMIN D3 ORAL) Take 5,000 Units by mouth once daily. diphenoxylate-atropine (LOMOTIL) 2.5-0.025 mg per tablet Take 1 tablet by mouth twice daily as needed for diarrhea for up to 90 days. No current facility-administered medications for this visit. Allergies: Cristine Inhibitors, Advair Diskus [Fluticasone Propion-Salmeterol], Albuterol, Amitriptyline, Amoxicillin, Bactrim [Sulfamethoxazole-Trimethoprim], Caffeine, Codeine, Doxycycline Hyclate, Hydantoins, Levaquin [Levofloxacin], Lisinopril, Pneumovax 23 [Pneumococcal 23-Santosh Ps Vaccine], Nxblxww-Lol-Rpj Reductase Inhibitors, and Ultram [Tramadol Hcl] ROS: General (negative for fatigue, malaise, weight loss/gain) HEENT (negative for headache, earache, recent vision changes, sinus pain, sore throat) Respiratory (no recent shortness of breath, hemoptysis) CV (negative for chest tightness, palpitations) Musculoskeletal (see HPI) Psych (no depression, anxiety) Recording using [employer] software for draft documentation of the visit was discussed with the patient/authorized outside sales representative; all questions welcomed and answered. Patient/authorized outside sales representative agreed to proceed Peter Patton MD [facility] History of Present illness Narrative* Violet Snow RT(R) - 09/06/2024 10:40 AM EDT Radiology Service Progress Note PATIENT NAME: Kendal Taylor DATE OF SERVICE: September 06, 2024 TIME: 2:14 PM PATIENT IDENTITY VERIFICATION COMPLETED USING TWO (2) IDENTIFIERS: Name and Date of confirmedby patient verbally. FALL SCREENING: Has the patient had 2 falls in the last year or 1 fall with injury or currently using an Ambulatory Assistive Device (Walker, Cane, Wheelchair, Crutches, etc.)? Yes, Patient High Riskfor Falls What interventions were put in place to prevent falls during this visit? Increased Observations by Caregivers PATIENT GENDER DATA: Assigned female at . status: : No status:NO. PATIENT RELEVANT IMPLANT DATA REVIEWED: Not Applicable PATIENT PRESENTS WITH AN IMPLANTABLE OR ATTACHED ON SITE NURSE: No RADIOLOGY DEPARTMENT: General X-ray: Exam(s) Completed: Lower Extremity X- Ray(s): Ankle, Left PERIPHERAL IV DATA: Not applicable SIGNED BY: RT Alice(Abhijit) September 06, 2024 2:14 PM documented in this [facility]Mary[facility]25 NoteHNO ID: [id number] Author: VIOLET SNOW RT(R) Service: ? Author Type: Technologist Type: Progress Notes Filed: 09/06/2024 14:15 Note Text: Radiology Service Progress Note PATIENT NAME: Kendal Taylor DATE OF SERVICE: September 06, 2024 TIME: 2:14 PM PATIENT IDENTITY VERIFICATION COMPLETED USING TWO (2) IDENTIFIERS: Name and Date of confirmed by patient verbally. FALL SCREENING: Has the patient had 2 falls in the last year or 1 fall with injury or currently using an Ambulatory Assistive Device (Walker, Cane, Wheelchair, Crutches, etc.)? Yes, Patient High Risk for Falls What interventions were put in place to prevent falls during this visit? Increased Observations by Caregivers PATIENT GENDER DATA: Assigned female at . status: : No status: NO. PATIENT RELEVANT IMPLANT DATA REVIEWED: Not Applicable PATIENT PRESENTS WITH AN IMPLANTABLE OR ATTACHED ON SITE NURSE: No RADIOLOGY DEPARTMENT: General X-ray: Exam(s) Completed: Lower Extremity X-Ray(s): Ankle, Left PERIPHERAL IV DATA: Not applicable SIGNED BY: RT Alice(Abhijit) September 06, 2024 2:14 [facility]04-18-2025 NoteHNO ID: [id number] Author: SHEILA INGRAM PA-C Service: ? Author Type: Physician Heating Equipment Installer Type: Progress Notes Filed: 08/13/2024 11:14 Note Text: Sheila Ingram PA-C Department of Orthopaedics Orthopaedics [address] [facility] [address] Dept: [phone] Dept August 13, 2024 CHIEF COMPLAINT: New and Fracture of the Left Ankle Right Ankle Fracture: - Sustained a fall in the bathroom on 08/04, resulting in a right ankle injury. - Initially believed it was a sprain; managed with wrapping and icing. - X-ray on 08/06 at [facility] revealed a small, non-displaced fracture of the distal fibula. - Reports burning pain and numbness in the toes. - Current boot is causing discomfort and rubbing, leading to redness. - Pain is not adequately managed with Tylenol; requests additional pain relief for nighttime use. - Lives alone in a two-story house; manages daily activities but requires assistance with groceries and other tasks. - Has a recliner and pillows for elevating the ankle; uses ice for swelling management. ASSESSMENT: S82.892A Closed avulsion fracture of left ankle, initial encounter (primary encounter diagnosis) PLAN: 1. Closed avulsion fracture of left ankle, initial encounter (S82.892A) - Non-displaced fracture at the distal fibula confirmed on X-ray from [facility]. - Significant swelling and tenderness noted; current CAM boot causing discomfort and erythema due to improper fit. - Demonstrated proper application of an CRISTINE wrap for support and advised wearing a well-fitted athletic shoe (Yates) with laces loosened to accommodate swelling. - Advised against the use of anti-inflammatory medications; recommended continuation of Tylenol for pain. - Prescribed [place] for nighttime pain management, cautioning against exceeding recommended Tylenol dosage. - Emphasized the importance of elevation with the ankle above heart level and regular icing to reduce swelling. - Follow-up appointment scheduled in one month for re-evaluation and repeat X-ray to assess healing progress. Will continue to monitor patient for Closed avulsion fracture of left ankle, initial encounter (primary encounter diagnosis), patient to schedule visit as per follow up discussed. Ms. Kendal Taylor was advised as to contrast therapies and/or to take analgesics/anti-inflammatories as needed and all contraindications were reviewed. OBJECTIVE: Ms. Kendal Taylor is a pleasant 84 year old in no apparent distress. Gen:There were no vitals taken for this visit. nl development, obese, no deformities ENT: Normocephalic, normal hearing, moist mucosa CV: Pulses:DP/PT= 2+ and symmetric, capillary refill < 2 secs, no peripheral edema/varicosities Skin: no rash, bruising or lesions. Good turgor. Psych: cooperative and appropriate, alert and oriented x 3, good mood and affect. Musculoskeletal: Left Lower Extremity: Inspection- swelling Moderate, ecchymosis around the lateral heel / ankle and around the medical heel / ankle, abrasion along the lateral ankle presumably from cam boot. Lateral ankle-Positive pain on palpation of the anterior talofibular ligament, Positive pain on palpation of the posterior talofibular ligament, Positive pain on palpation of the calcaneal fibular ligament. Talar tilt/ inversion without excessive laxity. Anterior and posterior drawer with good endpoint. Medial ankle- Negative on palpation of the distal tibia and medial malleolus, Negative pain on palpation of the medial deltoid ligament complex. Eversion without excessive laxity. Foot- No pain on palpation of the the proximal fifth metatarsal or over the dorsum of the midfoot. Squeeze test and cross leg test Negative. Abbasi test Negative. Neurolomuscular- Sensory intact to light touch L1-S1. Dorsi flexion 5/5, plantar flexion 5/5, extensor hallucis extension: 5/5. Circulatory- Dorsalis pedis pulses palpable, posterior tibial pulses palpable. Imagin view left ankle x-rays [facility] August 10, 2024 Impression diffuse soft tissue swelling. A nondisplaced avulsion fracture of the lateral malleolus. Joint space narrowing of the distal tibial talar joint. Supporting Subjective Information Below: Past Surgical History: PAST SURGICAL HISTORY Procedure Laterality Date ANTERIOR [...] 14 10/16/06 Right infraorbital skin lesion ablation ESOPHAGOGASTRODUODE (more content not included)...[facility] 08-13-2024 History of Present illness Narrative* Sheila Ingram PA-C - 08/13/2024 10:33 AM EDT Sheila Ingram PA-C Department of Orthopaedics Orthopaedics [address] [facility] [address] Dept: [phone] Dept August 13, 2024 CHIEF COMPLAINT: New and Fracture of the Left Ankle Right Ankle Fracture: - Sustained a fall in the bathroom on 08/04, resulting in a right ankle injury. - Initially believed it was a sprain; managed with wrapping and icing. - X-ray on 08/06 at [facility] revealed a small, non-displaced fracture of the distal fibula. - Reports burning pain and numbness in the toes. - Current boot is causing discomfort and rubbing, leading to redness. - Pain is not adequately managed with Tylenol; requests additional pain relief for nighttime use. - Lives alone in a two-story house; manages daily activities but requires assistance with groceriesand other tasks. - Has a recliner and pillows for elevating the ankle; uses ice for swelling management. ASSESSMENT: S82.892A Closed avulsion fracture of left ankle, initial encounter (primary encounter diagnosis) PLAN: 1. Closed avulsion fracture of left ankle, initial encounter (S82.892A) - Non-displaced fracture at the distal fibula confirmed on X-ray from [facility]. - Significant swelling and tenderness noted; current CAM boot causing discomfort and erythema due to improper fit. - Demonstrated proper application of an CRISTINE wrap for support and advised wearing a well-fitted athletic shoe (Yates) with laces loosened to accommodate swelling. - Advised against the use of anti-inflammatory medications; recommended continuation of Tylenol forpain. - Prescribed [place] for nighttime pain management, cautioning against exceeding recommended Tylenol dosage. - Emphasized the importance of elevation with the ankle above heart level and regular icing to reduce swelling. - Follow-up appointment scheduled in one month for re-evaluation and repeat X- ray to assess healingprogress. Will continue to monitor patient for Closed avulsion fracture of left ankle, initial encounter (primary encounter diagnosis), patient to schedule visit as per follow up discussed. Ms. Kendal Taylor was advised as to contrast therapies and/or to take analgesics/anti-inflammatories as needed and all contraindications were reviewed. OBJECTIVE: Ms. Kendal Taylor is a pleasant 84 year old in no apparent distress. Gen:There were no vitals taken for this visit. nl development, obese, no deformities ENT: Normocephalic, normal hearing, moist mucosa CV: Pulses:DP/PT= 2+ and symmetric, capillary refill < 2 secs, no peripheral edema/varicosities Skin: no rash, bruising or lesions. Good turgor. Psych: cooperative and appropriate, alert and oriented x 3, good mood and affect. Musculoskeletal: Left Lower Extremity: Inspection- swelling Moderate, ecchymosis around the lateral heel / ankle and around the medical heel / ankle, abrasion along the lateral ankle presumably from cam boot. Lateral ankle-Positive pain on palpation of the anterior talofibular ligament, Positive pain on palpation of the posterior talofibular ligament, Positive pain on palpation of the calcaneal fibular ligament. Talar tilt/ inversion without excessive laxity. Anterior and posterior drawer with good endpoint. Medial ankle- Negative on palpation of the distal tibia and medial malleolus, Negative pain on palpation of the medial deltoid ligament complex. Eversion without excessive laxity. Foot- No pain on palpation of the the proximal fifth metatarsal or over the dorsum of the midfoot. Squeeze test and cross leg test Negative. Abbasi test Negative. Neurolomuscular- Sensory intact to light touch L1-S1. Dorsi flexion 5/5, plantar flexion 5/5, extensor hallucis extension: 5/5. Circulatory- Dorsalis pedis pulses palpable, posterior tibial pulses palpable. Imagin view left ankle x-rays [facility] August 10, 2024 Impression diffuse soft tissue swelling. A nondisplaced avulsion fracture of the lateral malleolus.Joint space narrowing of the distal tibial talar joint. Supporting Subjective Information Below: Past Surgical History: PAST SURGICAL HISTORY Procedure Laterality Date ANTERIOR [...] B/L bunion surgery - Dr. Solis - [facility] PAST SURGICAL HISTORY OF 02/02/2014 right TKA & I&D of right TKA on 02/23/14 PAST SURGICAL HISTORY OF 06/02/2015 right ring trigger finger release [facility] N/CARPAL TUNNEL SURG 06/02/2015 right carpal tunnel release SKIN BX, 1 LESION 03/10/12 Left cheek skin lesion bx TOTAL ABDOMINAL HYSTERECT W/WO RMVL TUBE OVARY 1980 Medications: Current Outpatient Medications Medication Sig erenumab-aooe 140 mg/mL subcutaneous auto-injector (AIMOVIG) Inject 1 mL subcutaneously once every month. Do not shake. methocarbamol (ROBAXIN) 750 mg tablet Take 1 tablet by mouth two times a day as needed. rizatriptan (MAXALT) 10 mg tablet Take 1 tablet (10 mg) by mouth as needed (at onset of headache. May repeat after 2 hours.). Do not exceed 30 mg per day. potassium chloride ER (KLOR-CON M10) 10 mEq tablet Take 1 tablet by mouth two times a day. chlorthalidone (HYGROTON) 50 mg tablet Take 1 tablet by mouth once daily. ezetimibe (ZETIA) 10 mg tablet Take 1 tablet by mouth once daily. estradiol (E2) emollient cream 0.2 mg/gram (CPD) Finger-Tip amount applied to indicated area at bedtime every other day fluconazole (DIFLUCAN) 150 mg tablet Take 1 tablet by mouth Every 3 Days. colestipol (COLESTID) 1 gram tablet Take 3 tablets by mouth once daily. sucralfate (CARAFATE) 1 gram tablet Take 1 tablet by mouth twice daily. ketoconazole (NIZORAL) 2 % shampoo Apply to scalp rash every other day until clear- Lather and rinse and then lather 2nd time and leave set on hair for 5 min and rinse again. riboflavin, vitamin B2, (VITAMIN B2) 100 mg tab Take 200 mg by mouth twice daily. MAGNESIUM ORAL Take 500 mg by mouth daily at bedtime. coenzyme Q10 (COENZYME Q-10) 100 mg cap capsule Take 200 mg by mouth once daily. omeprazole (PRILOSEC) 40 mg capsule TAKE 1 CAPSULE DAILY (Patient taking differently: Take 20 mg bymouth once daily.) meclizine (ANTIVERT) 12.5 mg tab Take 1 tablet by mouth three times daily as needed (dizziness). acetaminophen (TYLENOL ORAL) Take by mouth as needed. cholecalciferol, vitamin D3, (VITAMIN D3 ORAL) Take 5,000 Units by mouth once daily. HYDROcodone-acetaminophen (NORCO) 5-325 mg per tablet Take 1 tablet by mouth every 6 hours as needed for pain for up to 7 days. benzonatate (TESSALON PERLES) 100 mg capsule Take 2 capsules by mouth three times daily as needed. spironolactone (ALDACTONE) 25 mg tablet Take 1 tablet by mouth once daily. (Patient not taking: Reported on 08/13/2024) HYDROcodone-acetaminophen (NORCO) 5-325 mg per tablet Take 1 tablet by mouth every 8 hours as needed for pain. (Patient not taking: Reported on 08/13/2024) diphenoxylate-atropine (LOMOTIL) 2.5-0.025 mg per tablet Take 1 tablet by mouth twice daily as needed for diarrhea for up to 90 days. No current facility-administered medications for this visit. Allergies: Cristine Inhibitors, Advair Diskus [Fluticasone Propion-Salmeterol], Albuterol, Amitriptyline, Amoxicillin, Bactrim [Sulfamethoxazole-Trimethoprim], Caffeine, Codeine, Doxycycline Hyclate, Hydantoins, Levaquin [Levofloxacin], Lisinopril, Pneumovax 23 [Pneumococcal 23-Santosh Ps Vaccine], Ploqsqh-Woy-Osg Reductase Inhibitors, and Ultram [Tramadol Hcl] ROS: General (negative for fatigue, malaise, weight loss/gain) HEENT (negative for headache, earache, recent vision changes, sinus pain, sore throat) Respiratory (no recent shortness of breath, hemoptysis) CV (negative for chest tightness, palpitations) Musculoskeletal (see HPI) Psych (no depression, anxiety) This note was partially generated using [employer] voice recognition system, and there may be some incorrect words, spellings, and punctuation that were not noted in checking the note before saving. Sheila Ingram PA-C * Linda Hirsch MA - 08/13/2024 9:51 AM EDT AMB ROOMING INTAKE FLOWSHEET DATA Pain Pain Level: 8 Pain Location: Ankle-Left Description: Burning, Throbbing Duration Amount of Time: 1.5 Duration Units: Weeks Frequency: Continuous Intervention/Comfort measure: Splinting, Medication Patient here today for left ankle fracture. She states that she passed out on 08/04/2024 and fell. She was not seen at the ED until 08/10/2024. She has a fracture boot and using a walker. Taking Tylenol for pain, but it is not helping her pain. [facility] NoteHNO ID: [id number] Author: LINDA HIRSCH MA Service: ? Author Type: Film Critic Type: Progress Notes Filed: 08/13/2024 11:14 Note Text: AMB ROOMING INTAKE FLOWSHEET DATA Pain Pain Level: 8 Pain Location: Ankle-Left Description: Burning, Throbbing Duration Amount of Time: 1.5 Duration Units: Weeks Frequency: Continuous Intervention/Comfort measure: Splinting, Medication Patient here today for left ankle fracture. She states that she passed out on 08/04/2024 and fell. She was not seen at the ED until 08/10/2024. She has a fracture boot and using a walker. Taking Tylenol for pain, but it is not helping her pain.[facility]2025 Discharge summary [facility] Medical Records Department [address] [place] [address] Emergency Department Summary 08/10/24 MR#: [id number] Acct: [id number] Name: KENDAL TAYLOR Rep #:[id number] : 1940 84 From: Ernesto Donohue MD PCP: Dr. Santa Sethi MD Status:REG ER Location: ED HPI History of Present Illness Chief Complaint: Lower Extremity Injury Narrative Narrative: 84-year-old female past medical history of remote bunion surgery of her left foot presents with injury to her left ankle that she sustained last Friday. This was approximately 6 days ago. She states that she fell in her kitchen. She thought she merely sprained her ankle and she states that the bruising on her foot has cleared, but her left lateral ankle remains swollen and she has pain with walking and weightbearing. She is taking Tylenol with mild relief. She presents with her granddaughterfor evaluation of the injury to her left ankle that seems to be worsening. [facility] Medical History Wears hearing aid Wears glasses MRSA infection History of IBS Non-smoker CPAP (continuous positive airway pressure) dependence Sleep apnea History of echocardiogram Heart murmur Chronic GERD Osteoarthritis IBS (irritable bowel syndrome) Recurrent infections High cholesterol Hearing problem UTI (urinary tract infection) Degenerative disc disease GERD (gastroesophageal reflux disease) Hypertension Migraines Home Medications ?Medication ?Instructions ?Recorded ?Last Taken ?Type cholecalciferol (vitamin D3) 125 125 mcg PO DAILY 07/18 Unknown History mcg (5,000 unit) capsule coq10 1 tab PO 1XD 08/28/22 Unknow n History fremanezumab-vfrm 225 mg/1.5 mL 225 mg subcut QMONTH 0 08/28/22 Unknown History subcutaneous auto-injector (Ajovy) ketonazole shampoo 1 applic topical 1XD PRN dry skin 08/28/22 Unknown History magnesium 250 mg tablet See Rx Instructions PO DAILY 08/28/22 Unknown History methocarbamol 750 mg tablet 750 mg PO .COMPLEX PRN aaron n 08/28/22 Unknown History riboflavin (vitamin B2) 100 mg 100 mg PO BID 08/28/22 Unknown History tablet rizatriptan 10 mg tablet See Rx Instructions PO .COMP MARCIN 08/28/22 Unknown History triamcinolone acetonide 0.1 % 1 applic topical BID #30 grams 09/11/22 Unknown Rx topical cream diclofenac sodium 1 % topical gel 2 g topical BID PRN Osteoarthritis 09/30/22 Unknown Rx #100 grams diphenoxylate-atropine 2.5 1 tab PO BID PRN diarrhea # 30 tabs 05/19/23 Unknown Rx mg-0.025 mg tablet meclizine 12.5 mg tablet 12.5 mg PO BID-QID PRN motio n 05/19/23 Unknown Rx sickness #30 tabs amlodipine 5 mg tablet 5 mg PO QDAY 02/04/24 Unknow n History ezetimibe 10 mg tablet 10 mg PO QDAY 02/04/24 Unkno wn History potassium chloride 10 mEq 10 meq PO QDAY 02/04/24 Unkn own History capsule,extended release azithromycin 250 mg tablet See Rx Instructions PO .COM PLEX #6 05/11/24 Unknown Rx tabs meclizine 25 mg tablet 12.5 mg (1/2 x 25 mg) PO TID PRN 05/11/24 Unknown Rx dizziness #14 tabs omeprazole 20 mg capsule,delayed 20 mg PO DAILY #90 ca ps 05/26/24 Unknown Rx release sucralfate 1 gram tablet 1 g PO BID #180 tabs 5 Unknown Rx chlorthalidone 50 mg tablet 25 mg PO QDAY 06/28/24 Unk nown History colestipol 1 gram tablet 1 g PO TID #270 tabs 5 Unknown Rx Allergy/AdvReac Type Severity Reaction Status Date / Time albuterol Allergy Unknown Verified 08/10/24 14:35 amoxicillin Allergy Hives Verified 08/10/24 14:35 Penicillins Allergy Hives Verified 08/10/24 14:35 sulfamethoxazole (From Allergy Hives Verified 08/10/24 14:35 Bactrim) trimethoprim (From Bactrim) Allergy Hives Verified 08/10/24 14:35 Family History Mother Hypertension Arthritis Bowel disease Myocardial infarction, Onset Age: 70 Age related osteoporosis Father Diabetes Myocardial infarction, Onset Age: 50 Surgical History History of knee replacement (~2013) History of bladder surgery (~2003) FH: cholecystectomy Bunion (~1988) H/O: hysterectomy (~1980) Social History adopted: No household members: spouse housing: house number of children: 6 current occupational status: employed current occupation: [employer] current occupational exposures/hazards: No pets and animals: Yes pets and animals: cat(s) leisure activities: exercise, reading and other history of recent travel: No sexually active: No Smoking Status: Never smoker alcohol intake: never substance use type: does not use well-balanced diet: daily or most days caffeine: No eating out: rarely or never during the past year weight has: increased > 10 lbs what type of physical activity do you participate in: walking and aerobics brenda/episcopal: Worship seatbelt use: always do you feel safe at home: Yes ROS ROS ED ROS Narrative Review of systems positive for left lateral ankle pain and swelling. Prior bruising improving. Painworse with weightbearing and walking. Has to use walker. Taking Tylenol with mild relief. EXAM Physical Exam Narrative Exam Narrative: GCS 15. ABCs intact. Inspection of the left ankle reveals mild tenderness and swelling about the left lateral malleolus. Palpable dorsalis pedis pulse. No medial malleoli or pain. No palpable Achilles tendon deficit. No pain at base of fifth metatarsal. No proximal fibular head tenderness. Able to flex and extend left knee. EHL intact, left. Const Vital Signs: 08/10/24 14:35 08/10/24 16:49 Temperature 96.6 F L 96.6 F L Temperature Source Temporal Pulse Rate 90 90 Respiratory Rate 16 16 Blood Pressure 153/69 H 153/69 H Blood Pressure Mean 97 97 Pulse Ox 97 97 Oxygen Delivery Method Room Air MDM MDM MDM Narrative Medical decision making narrative: Differential diagnosis includes fracture versus fracture dislocation versus ankle sprain. X-rays were obtained of the left ankle and 3 views and interpreted by myself independently. There is an avulsion fracture noted on theleft distal fibula. I reviewed the radiology report which confirms my independent interpretation and comments on diffuse soft tissue swelling and a nondisplaced fracture of the lateral malleolus. Patient requested something for pain in the emergency department and I initiallyordered an oxycodone which she had taken previously remotely, but she declined. She preferred Tylenol. She was administered 650 mg orally. I discussed the patient with Dr. Swann, who agrees that as the patient wants something more substantial instead of merely wrapping it, that she can be placed in a walking boot and be weightbearing as tolerated but should still use her walker. She hasto follow-up with podiatry and call morning, 2 days from now for an appointment. Additionally, she declined prescription for narcotic pain medication at home as she lives alone. Disposition is discharged home in stablecondition. History & Record Review Discussion w/independent historian: Patient Radiography Diagnostic Testing: Clinical Impression(s) from Imaging Studies Ankle X-Ray 08/10/24 14:45 IMPRESSION: Diffuse soft tissue swelling. Nondisplaced fracture of the lateral malleolus. Reading Location: [place] [address] Discharge Plan Triage Chief Complaint: Lower Extremity Injury ED Provider: Ernesto Donohue Dx/Rx/DC Orders Clinical Impression: Avulsion fracture of ankle, Swelling of ankle joint, left Instructions: ED Ankle Fracture, ED Ankle Fracture, Distal Fibula Prescriptions: No Action triamcinolone acetonide 0.1 % cream 1 applic topical BID Qty: 30 1RF Ajovy Autoinjector 225 mg/1.5 mL auto-injector 225 mg subcut QMONTH methocarbamol 750 mg tablet 750 mg PO .COMPLEX PRN (Reason: pain) Rx Instructions: 1 - 2 tabs orally daily PRN; rizatriptan 10 mg tablet See Rx Instructions PO .COMPLEX Rx Instructions: take 1 tab at onset of headache; if no relief may repeat 1 tab after at least2 hrs; max = 3 tabs/24hr PO ketonazole shampoo 1 applic topical 1XD PRN (Reason: dry skin) Rx Instructions: 2% magnesium 250 mg tablet See Rx Instructions PO DAILY Rx Instructions: 2 tabs =500mg orally daily; coq10 1 tab PO 1XD Rx Instructions: 300mg daily riboflavin (vitamin B2) 100 mg tablet 100 mg PO BID cholecalciferol (vitamin D3) 125 mcg (5,000 unit) capsule 125 mcg PO DAILY potassium chloride 10 mEq capsule, extended release 10 meq PO QDAY amlodipine 5 mg tablet 5 mg PO QDAY ezetimibe 10 mg tablet 10 mg PO QDAY azithromycin 250 mg tablet See Rx Instructions PO .COMPLEX Qty: 6 0RF Rx Instructions: For 250 mg dose pack: take 500 mg today (day 1), then 250 mg for 4 days (days2- 5) PO meclizine 25 mg tablet 12.5 mg PO TID PRN (Reason: dizziness) Qty: 14 0RF diclofenac sodium 1 % gel 2 g topical BID PRN (Reason: Osteoarthritis) Qty: 100 5RF Rx Instructions: apply to affected area, wash hands after application. meclizine 12.5 mg tablet 12.5 mg PO BID-QID PRN (Reason: motion sickness) Qty: 30 1RF diphenoxylate-atropine 2.5-0.025 mg tablet 1 tab PO BID PRN (Reason: diarrhea) Qty: 30 1RF omeprazole 20 mg capsule,delayed release(DR/EC) 20 mg PO DAILY Qty: 90 3RF sucralfate 1 gram tablet 1 g PO BID Qty: 180 3RF chlorthalidone 50 mg tablet 25 mg PO QDAY colestipol 1 gram tablet 1 g PO TID Qty: 270 3RF Primary Care Provider: Santa Sethi Referrals: Jayna Swann DPM [Med Staff - Active Staff] - Santa Sethi MD [Primary Care Provider] - Activity Restrictions/Additional Instructions: Use your walker and continue your Tylenol. Weightbearing as tolerated. Wear your boot, but you may remove it for sleeping and bathing. Follow-up with Dr. Swann with podiatry, call the office on morning for an appointment. Print Language: Ukrainian Disposition Disposition: Home, Self Care What to do if you have Problems For any increased pain, shortness of breath, bleeding, nausea or vomiting, chestpain, or any unexpected problems, contact your Primary Care Provider. Call [facility] ([phone]) or report tothe closest Emergency Room. Call 911 if necessary. 08/10/24 1650 Cosigner Signature (if applicable): CC: Dr. Santa Sethi MD ~ Signed [facility]2025 Radiology Diagnostic study note [facility] Imaging Services [address] [place] [address] Ankle min 3 Views MR#: [id number] Acct: [id number] Name: KENDAL TAYLOR Rep #: [id number] : 1940 F 84 From: Alan Ruby MD PCP: Dr. Santa Sethi MD Status: PRE ER Study:Ankle min 3 Views Date of Exam: Exam# [id number] Ordering Dr: Santa Sethi MD PROCEDURE: ANKLE MIN 3 VIEWS 08/10/2024 REASON FOR EXAM: INJURY/PAIM TECHNIQUE: 3 views of the left ankle COMPARISON: None FINDINGS: Bones: Nondisplaced avulsion fracture of the lateral malleolus. Joints: Joint space narrowing of the distal tibial talar joint. Soft tissues: Soft tissue swelling. Other: RAD/Ankle min 3 Views IMPRESSION: Diffuse soft tissue swelling. Nondisplaced fracture of the lateral malleolus. Reading Location: [place] [address] CC: Dr. Santa Sethi MD ~ Ripsaw Matcher: Signed [facility]2025 Discharge summary Author Ernesto Donohue [facility] Note Date/Time August 10, 2024 4:5 0pm [facility] Medical Records Department [address] [place] [address] Emergency Department Summary 08/10/24 MR#: [id number] Acct: [id number] Name: KENDAL TAYLOR Rep #:[id number] : 1940 84 From: Ernesto Donohue MD PCP: Dr. Santa Sethi MD Status:REG ER Location: ED HPI History of Present Illness Chief Complaint: Lower Extremity Injury Narrative Narrative: 84-year-old female past medical history of remote bunion surgery of her left foot presents with injury to her left ankle that she sustained last Friday. This was approximately 6 days ago. She states that she fell in her kitchen. She thought she merely sprained her ankle and she states that the bruising on her foot has cleared, but her left lateral ankle remains swollen and she has pain with walking and weightbearing. She is taking Tylenol with mild relief. She presents with her granddaughter for evaluation of the injury to her left ankle that seems to be worsening. [facility] Medical History Wears hearing aid Wears glasses MRSA infection History of IBS Non-smoker CPAP (continuous positive airway pressure) dependence Sleep apnea History of echocardiogram Heart murmur Chronic GERD Osteoarthritis IBS (irritable bowel syndrome) Recurrent infections High cholesterol Hearing problem UTI (urinary tract infection) Degenerative disc disease GERD (gastroesophageal reflux disease) Hypertension Migraines Home Medications ?Medication ?Instructions ?Recorded ?Last Taken ?Type cholecalciferol (vitamin D3) 125 125 mcg PO DAILY 07/18 Unknown History mcg (5,000 unit) capsule coq10 1 tab PO 1XD 08/28/22 Unknow n History fremanezumab-vfrm 225 mg/1.5 mL 225 mg subcut QMONTH 0 08/28/22 Unknown History subcutaneous auto-injector (Ajovy) ketonazole shampoo 1 applic topical 1XD PRN dry skin 08/28/22 Unknown History magnesium 250 mg tablet See Rx Instructions PO DAILY 08/28/22 Unknown History methocarbamol 750 mg tablet 750 mg PO .COMPLEX PRN aaron n 08/28/22 Unknown History riboflavin (vitamin B2) 100 mg 100 mg PO BID 08/28/22 Unknown History tablet rizatriptan 10 mg tablet See Rx Instructions PO .COMP MARCIN 08/28/22 Unknown History triamcinolone acetonide 0.1 % 1 applic topical BID #30 grams 09/11/22 Unknown Rx topical cream diclofenac sodium 1 % topical gel 2 g topical BID PRN Osteoarthritis 09/30/22 Unknown Rx #100 grams diphenoxylate-atropine 2.5 1 tab PO BID PRN diarrhea # 30 tabs 05/19/23 Unknown Rx mg-0.025 mg tablet meclizine 12.5 mg tablet 12.5 mg PO BID-QID PRN motio n 05/19/23 Unknown Rx sickness #30 tabs amlodipine 5 mg tablet 5 mg PO QDAY 02/04/24 Unknow n History ezetimibe 10 mg tablet 10 mg PO QDAY 02/04/24 Unkno wn History potassium chloride 10 mEq 10 meq PO QDAY 02/04/24 Unkn own History capsule,extended release azithromycin 250 mg tablet See Rx Instructions PO .COM PLEX #6 05/11/24 Unknown Rx tabs meclizine 25 mg tablet 12.5 mg (1/2 x 25 mg) PO TID PRN 05/11/24 Unknown Rx dizziness #14 tabs omeprazole 20 mg capsule,delayed 20 mg PO DAILY #90 ca ps 05/26/24 Unknown Rx release sucralfate 1 gram tablet 1 g PO BID #180 tabs 5 Unknown Rx chlorthalidone 50 mg tablet 25 mg PO QDAY 06/28/24 Unk nown History colestipol 1 gram tablet 1 g PO TID #270 tabs 5 Unknown Rx Allergy/AdvReac Type Severity Reaction Status Date / Time albuterol Allergy Unknown Verified 08/10/24 14:35 amoxicillin Allergy Hives Verified 08/10/24 14:35 Penicillins Allergy Hives Verified 08/10/24 14:35 sulfamethoxazole (From Allergy Hives Verified 08/10/24 14:35 Bactrim) trimethoprim (From Bactrim) Allergy Hives Verified 08/10/24 14:35 Family History Mother Hypertension Arthritis Bowel disease Myocardial infarction, Onset Age: 70 Age related osteoporosis Father Diabetes Myocardial infarction, Onset Age: 50 Surgical History History of knee replacement (~2013) History of bladder surgery (~2003) FH: cholecystectomy Bunion (~1988) H/O: hysterectomy (~1980) Social History adopted: No household members: spouse housing: house number of children: 6 current occupational status: employed current occupation: [employer] current occupational exposures/hazards: No pets and animals: Yes pets and animals: cat(s) leisure activities: exercise, reading and other history of recent travel: No sexually active: No Smoking Status: Never smoker alcohol intake: never substance use type: does not use well-balanced diet: daily or most days caffeine: No eating out: rarely or never during the past year weight has: increased > 10 lbs what type of physical activity do you participate in: walking and aerobics brenda/episcopal: Worship seatbelt use: always do you feel safe at home: Yes ROS ROS ED ROS Narrative Review of systems positive for left lateral ankle pain and swelling. Prior bruising improving. Pain worse with weightbearing and walking. Has to use walker. Taking Tylenol with mild relief. EXAM Physical Exam Narrative Exam Narrative: GCS 15. ABCs intact. Inspection of the left ankle reveals mild tenderness and swelling about the left lateral malleolus. Palpable dorsalis pedis pulse. No medial malleoli or pain. No palpable Achilles tendon deficit. No pain at base of fifth metatarsal. No proximal fibular head tenderness. Able to flex and extend left knee. EHL intact, left. Const Vital Signs: 08/10/24 14:35 08/10/24 16:49 Temperature 96.6 F L 96.6 F L Temperature Source Temporal Pulse Rate 90 90 Respiratory Rate 16 16 Blood Pressure 153/69 H 153/69 H Blood Pressure Mean 97 97 Pulse Ox 97 97 Oxygen Delivery Method Room Air MDM MDM MDM Narrative Medical decision making narrative: Differential diagnosis includes fracture versus fracture dislocation versus ankle sprain. X-rays were obtained of the left ankle and 3 views and interpreted by myself independently. There is an avulsion fracture noted on theleft distal fibula. I reviewed the radiology report which confirms my independent interpretation and comments on diffuse soft tissue swelling and a nondisplaced fracture of the lateral malleolus. Patient requested something for pain in the emergency department and I initiallyordered an oxycodone which she had taken previously remotely, but she declined. She preferred Tylenol. She was administered 650 mg orally. I discussed the patient with Dr. Swann, who agrees that as the patient wants something more substantial instead of merely wrapping it, that she can be placed in a walking boot and be weightbearing as tolerated but should still use her walker. She hasto follow-up with podiatry and call morning, 2 days from now for an appointment. Additionally, she declined prescription for narcotic pain medication at home as she lives alone. Disposition is discharged home in stablecondition. History & Record Review Discussion w/independent historian: Patient Radiography Diagnostic Testing: Clinical Impression(s) from Imaging Studies Ankle X-Ray 08/10/24 14:45 IMPRESSION: Diffuse soft tissue swelling. Nondisplaced fracture of the lateral malleolus. Reading Location: [facility] Discharge Plan Triage Chief Complaint: Lower Extremity Injury ED Provider: Ernesto Donohue Dx/Rx/DC Orders Clinical Impression: Avulsion fracture of ankle, Swelling of ankle joint, left Instructions: ED Ankle Fracture, ED Ankle Fracture, Distal Fibula Prescriptions: No Action triamcinolone acetonide 0.1 % cream 1 applic topical BID Qty: 30 1RF Ajovy Autoinjector 225 mg/1.5 mL auto-injector 225 mg subcut QMONTH methocarbamol 750 mg tablet 750 mg PO .COMPLEX PRN (Reason: pain) Rx Instructions: 1 - 2 tabs orally daily PRN; rizatriptan 10 mg tablet See Rx Instructions PO .COMPLEX Rx Instructions: take 1 tab at onset of headache; if no relief may repeat 1 tab after at least2 hrs; max = 3 tabs/24 hr PO ketonazole shampoo 1 applic topical 1XD PRN (Reason: dry skin) Rx Instructions: 2% magnesium 250 mg tablet See Rx Instructions PO DAILY Rx Instructions: 2 tabs =500mg orally daily; coq10 1 tab PO 1XD Rx Instructions: 300mg daily riboflavin (vitamin B2) 100 mg tablet 100 mg PO BID cholecalciferol (vitamin D3) 125 mcg (5,000 unit) capsule 125 mcg PO DAILY potassium chloride 10 mEq capsule, extended release 10 meq PO QDAY amlodipine 5 mg tablet 5 mg PO QDAY ezetimibe 10 mg tablet 10 mg PO QDAY azithromycin 250 mg tablet See Rx Instructions PO .COMPLEX Qty: 6 0RF Rx Instructions: For 250 mg dose pack: take 500 mg today (day 1), then 250 mg for 4 days (days2- 5) PO meclizine 25 mg tablet 12.5 mg PO TID PRN (Reason: dizziness) Qty: 14 0RF diclofenac sodium 1 % gel 2 g topical BID PRN (Reason: Osteoarthritis) Qty: 100 5RF Rx Instructions: apply to affected area, wash hands after application. meclizine 12.5 mg tablet 12.5 mg PO BID-QID PRN (Reason: motion sickness) Qty: 30 1RF diphenoxylate-atropine 2.5-0.025 mg tablet 1 tab PO BID PRN (Reason: diarrhea) Qty: 30 1RF omeprazole 20 mg capsule,delayed release(DR/EC) 20 mg PO DAILY Qty: 90 3RF sucralfate 1 gram tablet 1 g PO BID Qty: 180 3RF chlorthalidone 50 mg tablet 25 mg PO QDAY colestipol 1 gram tablet 1 g PO TID Qty: 270 3RF Primary Care Provider: Santa Sethi Referrals: Jayna Swann DPM [Med Staff - Active Staff] - Santa Sethi MD [Primary Care Provider] - Activity Restrictions/Additional Instructions: Use your walker and continue your Tylenol. Weightbearing as tolerated. Wear your boot, but you may remove it for sleeping and bathing. Follow-up with Dr. Swann with podiatry, call the office on morning for an appointment. Print Language: Ukrainian Disposition Disposition: Home, Self Care What to do if you have Problems For any increased pain, shortness of breath, bleeding, nausea or vomiting, chestpain, or any unexpected problems, contact your Primary Care Provider. Call [facility] ([phone]) or report to the closest Emergency Room. Call 911 if necessary. 08/10/24 1650 <Electronically signed by Ernesto Donohue MD> Cosigner Signature (if applicable): CC: Dr. Santa Sethi MD ~ Signed [facility] Work Phone: [phone]) 358-464203-24-2025 Telephone encounter Note* Telephone Encounter - Yeny Cooper PAC - 07/19/2024 4:33 PM EDT Patient calling to state that Amovig will cost her $[address] Mccain's recommendation. Please assist. [facility]03-24-2025 Miscellaneous Notes* Telephone Encounter - Yeny Cooper PAC - 07/19/2024 4:33 PM EDT Patient calling to state that Amovig will cost her $[address] Mccain's recommendation. Please assist. * Telephone Encounter - Kimmie Martins RN - 07/19/2024 3:59 PM EDT Spoke to patient and discussed options including Vyepti. Patient will call back to discuss what shewould like to do. * Telephone Encounter - Kimmie Martins RN - 07/19/2024 3:40 PM EDT Spoke to pharmacy. The manufactures total cost is $2,202.02. Medicare requires patient to pay 50%. The pharmacy said that medicare did increase the swan this year. * Telephone Encounter - Stephanie Palafox - 07/19/2024 2:54 PM EDT Patient states [facility] does not accept saving cards. Patient is asking if it would be appropriate to send new prescription to [facility] to seewhat out of pocket costs would be with savings card. Patient is requesting to speak with clinical. * Telephone Encounter - Kimmie Martins RN - 07/19/2024 2:22 PM EDT Called patient regarding message below. Helped assist patient with the [employer] savings card. Patient voiced appreciation and will call back if her insurance does not accept * Telephone Encounter - Elda Puckett - 07/19/2024 1:23 PM EDT Kendal is calling Terrance Mccain MD today with concern regarding Medication Problem--the Ajovy Auto Injector is too costly---is over #1,000.00 please advise if anything cheaper or if she can just skip it Patient has been identified by name and birthdate. Duration of symptoms: N/A Person calling: self Call patient at: at home [phone] (home) [phone] (cell) Was an appointment scheduled: No Closing statement: Symptom Call: Thank you for calling [facility], your call is very important. A nurse will call in approximately 2-4 hours during business hours. If this is an emergency, please contact 911. Elda Martínez documented in this encounterMary[facility]03[facility] Telephone encounter Note * Telephone Encounter - Kimmie Martins RN - 07/19/2024 3:59 PM EDT Spoke to patient and discussed options including Vyepti. Patient will call back to discuss what shewould like to do. [facility]03-24-2025 Telephone encounter Note* Telephone Encounter - Kimmie Martins RN - 07/19/2024 3:40 PM EDT Spoke to pharmacy. The manufactures total cost is $2,202.02. Medicare requires patient to pay 50%. The pharmacy said that medicare did increase the swan this year. [facility]03-24-2025 Telephone encounter Note* Telephone Encounter - Stephanie Palafox - 07/19/2024 2:54 PM EDT Patient states [facility] does not accept saving cards. Patient is asking if it would be appropriate to send new prescription to [facility] in [place] to seewhat out of pocket costs would be with savings card. Patient is requesting to speak with clinical. [facility]03-24-2025 Telephone encounter Note* Telephone Encounter - Kimmie Martins, RN - 07/19/2024 2:22 PM EDT Called patient regarding message below. Helped assist patient with the Ajovy savings card. Patient voiced appreciation and will call back if her insurance does not accept [facility]03-24-2025 Telephone encounter Note* Telephone Encounter - Elda Puckett - 07/19/2024 1:23 PM EDT Kendal is calling Terrance Mccain MD today with concern regarding Medication Problem--the Ajovy Auto Injector is too costly---is over #1,000.00 please advise if anything cheaper or if she can just skip it Patient has been identified by name and birthdate. Duration of symptoms: N/A Person calling: self Call patient at: at home [phone] (home) [phone] (cell) Was an appointment scheduled: No Closing statement: Symptom Call: Thank you for calling [facility], your call is very important. A nurse will call in approximately 2-4 hours during business hours. If this is an emergency, please contact 911. Elda Martínez [facility]03-24-2025 Telephone encounter Note* Telephone Encounter - Shawanda Gillespie - 07/19/2024 11:57 AM EDT Physician: Wan Call from pharmacy requesting refill. Please E-Scribe Last OV: 10/14/2023 with Wan Future OV: 10/22/2024 with Wan Requested Prescriptions Pending Prescriptions Disp Refills AJOVY AUTOINJECTOR 225 mg/1.5 mL auto-injector [Pharmacy Med Name: AJOVY AUTO- INJECTOR 1.5ML 225MG]4.5 mL 3 Sig: INJECT 1.5 ML UNDER THE SKIN ONCE EVERY MONTH, DO NOT SHAKE Pharmacy Name: [facility] Shawanda Gillespie [facility]03-24-2025 Miscellaneous Notes* Telephone Encounter - Shawanda Gillespie - 07/19/2024 11:57 AM EDT Physician: Wan Call from pharmacy requesting refill. Please E-Scribe Last OV: 10/14/2023 with Wan Future OV: 10/22/2024 with Wan Requested Prescriptions Pending Prescriptions Disp Refills AJOVY AUTOINJECTOR 225 mg/1.5 mL auto-injector [Pharmacy Med Name: AJOVY AUTO- INJECTOR 1.5ML 225MG]4.5 mL 3 Sig: INJECT 1.5 ML UNDER THE SKIN ONCE EVERY MONTH, DO NOT SHAKE [facility] documented in [facility] Telephone encounter Note * Telephone Encounter - Rafaela Montano RN - 06/10/2024 4:43 PM EST Maliha approved [facility]02-13-2025 Miscellaneous Notes* Telephone Encounter - Rafaela Montano RN - 06/10/2024 4:43 PM EST Maliha approved * Telephone Encounter - Rafaela Montano RN - 06/09/2024 4:28 PM EST Pa questions answered and sent. * Telephone Encounter - Rafaela Montano RN - 06/09/2024 10:13 AM EST PA requested through [employer] * Telephone Encounter - Shaylee Sanchez - 06/09/2024 9:56 AM EST Kendal is calling Terrance Mccain MD today to request Insurance Authorization (Needed for aimovig) please call [phone]. Patient has been identified by name and birthdate. Duration of symptoms: N/A Person calling: self Call patient at: on cell [phone] (home) [phone] (cell) Was an appointment scheduled: No Closing statement: Prior Authorization Calls: Thank you for calling [facility], your call will be returned within the next 24 hours or next business day. Shaylee Sanchez documented in this encounterMary[facility] Hospital02-12-2025 Telephone encounter Note * Telephone Encounter - Rafaela Montano RN - 06/09/2024 4:28 PM EST Pa questions answered and sent. [facility]02-12-2025 Telephone encounter Note* Telephone Encounter - Rafaela Montano RN - 06/09/2024 10:13 AM EST PA requested through [facility]02-12-2025 Telephone encounter Note* Telephone Encounter - Shaylee Sanchez - 06/09/2024 9:56 AM EST Kendal is calling Terrance Mccain MD today to request Insurance Authorization (Needed for aimovig) please call [phone]. Patient has been identified by name and birthdate. Duration of symptoms: N/A Person calling: self Call patient at: on cell [phone] (home) [phone] (cell) Was an appointment scheduled: No Closing statement: Prior Authorization Calls: Thank you for calling [facility], your call will be returned within the next 24 hours or next business day. Shaylee Sanchez [facility]01-29-2025 Telephone encounter Note* Telephone Encounter - Shaylee Sanchez - 05/26/2024 3:16 PM EST Prescription Refill Information The patient has been identified by name and date of : Yes Caregiver verified no other encounters exist for this prescription request: Caregiver confirmed with patient/requestor that no other refills are due, in the near future, with this provider at this time: The last office visit in the department: Does the patient have a future office visit with this provider/department: Requested Prescriptions Pending Prescriptions Disp Refills methocarbamol (ROBAXIN) 750 mg tablet 60 tablet 3 Sig: Take 1 tablet by mouth two times a day as needed. rizatriptan (MAXALT) 10 mg tablet 10 tablet 3 Sig: Take 1 tablet (10 mg) by mouth as needed (at onset of headache. May repeat after 2 hours.). Donot exceed 30 mg per day. ##PT STATES AJOVY HAS TO BE SWITCHED TO AIMOVIG AND SENT TO [facility]#Valerie Sanchez May 26, 2024 3:18 PM [facility]01-29-2025 Miscellaneous Notes* Telephone Encounter - Shaylee Sanchez - 05/26/2024 3:16 PM EST Prescription Refill Information The patient has been identified by name and date of : Yes Caregiver verified no other encounters exist for this prescription request: Caregiver confirmed with patient/requestor that no other refills are due, in the near future, with this provider at this time: The last office visit in the department: Does the patient have a future office visit with this provider/department: Requested Prescriptions Pending Prescriptions Disp Refills methocarbamol (ROBAXIN) 750 mg tablet 60 tablet 3 Sig: Take 1 tablet by mouth two times a day as needed. rizatriptan (MAXALT) 10 mg tablet 10 tablet 3 Sig: Take 1 tablet (10 mg) by mouth as needed (at onset of headache. May repeat after 2 hours.). Donot exceed 30 mg per day. ##PT STATES AJOVY HAS TO BE SWITCHED TO AIMOVIG AND SENT TO [facility]## Shaylee Laura May 26, 2024 3:18 PM documented in this encounterMary[facility] Hospital10-22-2024 Telephone encounter Note * Telephone Encounter - Michell Helms LPN - 02/17/2024 9:44 AM EDT Spoke with patient about test results and informed her Dr. Kothari is sending a prescription for potassium supplementation to her pharmacy. Patient verbalizes understanding. Michell Helms LPN [facility]10-22-2024 Miscellaneous Notes* Telephone Encounter - Michell Helms LPN - 02/17/2024 9:44 AM EDT Spoke with patient about test results and informed her Dr. oKthari is sending a prescription for potassium supplementation to her pharmacy. Patient verbalizes understanding. Michell Helms LPN * Telephone Encounter - Michell Helms LPN - 02/17/2024 9:42 AM EDT ----- Message from Valerie Kothari MD sent at 02/17/2024 9:33 AM EDT ----- Good morning, Could we please let the patient know that her potassium is slightly reduced. Will send a prescription for potassium supplementation to her pharmacy. Valerie Kothari MD, documented in this encounterMarymount Hospital10-22-2024 Telephone encounter Note * Telephone Encounter - Michell Helms LPN - 02/17/2024 9:42 AM EDT ----- Message from Valerie Kothari MD sent at 02/17/2024 9:33 AM EDT ----- Good morning, Could we please let the patient know that her potassium is slightly reduced. Will send a prescription for potassium supplementation to her pharmacy. Valerie Kothari MD, MD [facility]10-21-2024 NoteHNO ID: [id number] Author: VALERIE KOTHARI MD Service: ? Author Type: Physician Type: Progress Notes Filed: 02/16/2024 10:28 Note Text: Chief Complaint: Patient presents with: CARD Follow Up 3 Month: Primary hypertension Kendal Taylor is a 83 year old female referred to me by Santa Sethi . She presents with exertional fatigue and dyspnea.. He was seen by myself in the past. She has morbid obesity, hypertension, hyperlipidemia, has been noticing fatigue since the beginning of the year. In the past, she has had ischemic workup that included a 2D echo on 10/16/2023 that demonstrated normal LV with mild aortic stenosis. Similarly, an exercise nuclear stress test done on 07/21/2023 demonstrated no ischemia. During the last office visit, her blood pressure was suboptimally controlled. We had added amlodipine. She took it for 2 weeks. After that, she had flulike illness and had sinusitis during which she had discontinued amlodipine. She brings blood pressure recordings at home home for the past 2 weeks. They range b/n 120-130 systolic, Diastoilc b/n 70-80 mm Hg. Denies any other specific cardiac complaints. Also, she mentions that her potassium level was low and her primary care provider has started on potassium supplementation. No hospitalizations or admissions for any cardiac or noncardiac issues. 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 Solis - [facility] PAST SURGICAL HISTORY OF 02/02/2014 right TKA [...] Never Smokeless tobacco: Never Vaping Use Vaping status: Never Used Substance Use Topics Alcohol use: Not Currently Drug use: Never Current Outpatient Medications Medication Sig chlorthalidone (HYGROTON) 50 mg tablet Take 1 tablet by mouth once daily. ezetimibe (ZETIA) 10 mg tablet Take 1 tablet by mouth once daily. potassium chloride SR (MICRO-K) 10 mEq CR capsule Take 1 capsule by mouth once daily. rizatriptan (MAXALT) 10 mg tablet Take 1 tablet (10 mg) by mouth as needed (at onset of headache. May repeat after 2 hours.). Do not exceed 30 mg per day. meth (more content not included)...[facility]10-21-2024 History of Present illness Narrative* Valerie Kothari MD - 02/16/2024 10:05 AM EDT Chief Complaint: Patient presents with: CARD Follow Up 3 Month: Primary hypertension Kendal Taylor is a 83 year old female referred to me by Santa Sethi . She presents with exertional fatigue and dyspnea.. He was seen by myself in the past. She has morbid obesity, hypertension, hyperlipidemia, has been noticing fatigue since the beginning of the year. In the past, she has had ischemic workup that included a 2D echo on 10/16/2023 that demonstrated normal LV with mild aortic stenosis. Similarly, an exercise nuclear stress test done on 07/21/2023 demonstrated no ischemia. During the last office visit, her blood pressure was suboptimally controlled. We had added amlodipine. She took it for 2 weeks. After that, she had flulike illness and had sinusitis during which she had discontinued amlodipine. She brings blood pressure recordings at home home for the past 2 weeks.They range b/n 120-130 systolic, Diastoilc b/n 70-80 mm Hg. Denies any other specific cardiac complaints. Also, she mentions that her potassium level was low and her primary care provider has started on potassium supplementation. No hospitalizations or admissions for any cardiac or noncardiac issues. 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 w/focal laser Right carpal tunnel syndrome 04/03/2015 Sleep apnea Snoring Trigger ring finger of right hand 06/05/2015 Trochanteric bursitis of left hip 07/19/2016 Unspecified migraine Unspecified sleep apnea 2004 hypoxic sleep apnea Urinary incontinence Venous stasis Wound infection after surgery 03/07/2014 PAST SURGICAL [...] B/L bunion surgery - Dr. Solis - [facility] PAST SURGICAL HISTORY OF 02/02/2014 right TKA [...] Never Smokeless tobacco: Never Vaping Use Vaping status: Never Used Substance Use Topics Alcohol use: Not Currently Drug use: Never Current Outpatient Medications Medication Sig chlorthalidone (HYGROTON) 50 mg tablet Take 1 tablet by mouth once daily. ezetimibe (ZETIA) 10 mg tablet Take 1 tablet by mouth once daily. potassium chloride SR (MICRO-K) 10 mEq CR capsule Take 1 capsule by mouth once daily. rizatriptan (MAXALT) 10 mg tablet Take 1 tablet (10 mg) by mouth as needed (at onset of headache. May repeat after 2 hours.). Do not exceed 30 mg per day. methocarbamol (ROBAXIN) 750 mg tablet Take 1 tablet by mouth two times a day as needed. fremanezumab-vfrm ([employer] AUTOINJECTOR) 225 mg/1.5 mL auto-injector Inject 1.5 mL subcutaneously once every month. Do not shake. nitrofurantoin macrocrystal (MACRODANTIN) 50 mg capsule Take 1 capsule by mouth once daily. estradiol (E2) emollient cream 0.2 mg/gram (CPD) Finger-Tip amount applied to indicated area at bedtime every other day benzonatate (TESSALON PERLES) 100 mg capsule Take 2 capsules by mouth three times daily as needed. spironolactone (ALDACTONE) 25 mg tablet Take 1 tablet by mouth once daily. fluconazole (DIFLUCAN) 150 mg tablet Take 1 tablet by mouth Every 3 Days. colestipol (COLESTID) 1 gram tablet Take 3 tablets by mouth once daily. sucralfate (CARAFATE) 1 gram tablet Take 1 tablet by mouth twice daily. ketoconazole (NIZORAL) 2 % shampoo Apply to scalp rash every other day until clear- Lather and rinse and then lather 2nd time and leave set on hair for 5 min and rinse again. riboflavin, vitamin B2, (VITAMIN B2) 100 mg tab Take 200 mg by mouth twice daily. MAGNESIUM ORAL Take 500 mg by mouth daily at bedtime. coenzyme Q10 (COENZYME Q-10) 100 mg cap capsule Take 200 mg by mouth once daily. HYDROcodone-acetaminophen (NORCO) 5-325 mg per tablet Take 1 tablet by mouth every 8 hours as needed for pain. omeprazole (PRILOSEC) 40 mg capsule TAKE 1 CAPSULE DAILY meclizine (ANTIVERT) 12.5 mg tab Take 1 tablet by mouth three times daily as needed (dizziness). acetaminophen (TYLENOL ORAL) Take by mouth as needed. cholecalciferol, vitamin D3, (VITAMIN D3 ORAL) Take 5,000 Units by mouth once daily. amLODIPine (NORVASC) 5 mg tablet Take 1 tablet by mouth once daily. diphenoxylate-atropine (LOMOTIL) 2.5-0.025 mg per tablet Take 1 tablet by mouth twice daily as needed for diarrhea for up to 90 days. No current facility-administered medications for this visit. ALLERGIES Allergen Reactions Cristine Inhibitors Other: See Comments listril, zestril; makes [...] Levaquin [Levofloxa* Intolerance Dizziness at 500mg dose Lisinopril Other: See Comments Dizziness, almost passed out Pneumovax 23 [Pneum* Other: See Comments had one in 1997,, had reaction; arm swelled up for about 8 months Ridfoaj-Ajr-Vwx Red* Other: See Comments pt declines-not work Ultram [Tramadol Hc* Other: See Comments headache Cardiac Testing None Review of Systems: GENERAL: No weight loss, malaise or fevers. HEENT: Negative for frequent or significant headaches, No changes in hearing or vision, no nose bleeds or other nasal problems NECK: Negative for goiter, pain or significant neck swelling RESPIRATORY: See HPI CARDIOVASCULAR: See H GI: No nausea, vomiting, or diarrhea MUSCULOSKELETAL: Negative for joint pain or swelling, back pain or muscle pain SKIN: Negative for lesions, rash, and itching. ENDOCRINE: Negative for cold or heat intolerance, polyuria or polydipsia. NEURO: No history of headaches, syncope, paralysis, seizures or tremors BP 124/74 (BP Site: Left Arm, BP Position: Sitting, BP Cuff Size: Regular Adult) Pulse 88 Wt 164 lb (74.4 kg) SpO2 98% BMI 33.12 kg/m General physical examination: General Appearance: Well appearing, alert, in no acute distress, well-hydrated, well nourished.. Skin: Skin color, texture, turgor normal, no suspicious rashes or lesions. Head: Normocephalic, no masses, lesions, tenderness or abnormalities. Eyes: Anicteric sclera. Pupils are equally round and reactive to light. Extraocular movements are intact. . Neck: Supple, no adenopathy; thyroid symmetric, normal size, no bruits. Lungs: Lungs clear to auscultation. No wheezing, rhonchi, rales.. Heart: regular rate and rhythm, no murmur, gallop or rub, normal, S1, S2, physiologic split, no lifts, heaves, or thrills, PMI not displaced Peripheral Pulses: Normal. ASSESSMENT/PLAN: 1. Primary hypertension - ICD9: 401.9, ICD10: I10 (primary diagnosis) - Controlled - Continue current medications - Recommend home blood pressure monitoring, to bring results to next visit - Encouraged sodium restriction, DASH or Mediterranean diet - Recommend regular aerobic exercise -Will hold off of amlodipine for now. -Will recheck her potassium levels. 2. Exertional dyspnea - ICD9: 786.09, ICD10: R06.09 -Stable. TSH within normal limits. 3. Mixed hyperlipidemia - ICD9: 272.2, ICD10: E78.2 - Controlled - Continue current medications - Counseled on healthy diet and regular exercise -Currently only on Zetia 10 mg daily. Will recheck her fasting lipid profile. 4. Venous stasis - ICD9: 459.81, ICD10: I87.8 -Uses compression stockings. Symptoms much better than before 5. Obesity, Class I, BMI 30-34.9 - ICD9: 278.00, ICD10: E66.811 -stable Valerie Kothari MD, MD Valerie Kothari MD, [facility] [address] [facility], [address] [place] [address] Facsimile: [phone] documented in this encounterMarymount Hospital10-21-[facility]24 Nurse Note* Hamida Valdez MA - 02/16/2024 9:51 AM EDT Pt has severe muscle pain while taking amlodipine. Pt stopped taking. [facility] Nurse Note* Hamida Valdez MA - 02/16/2024 9:51 AM EDT Pt has severe muscle pain while taking amlodipine. Pt stopped taking. documented in this encounterMarymount Hospital08-28-2024 Telephone encounter Note * Telephone Encounter - Christopher Canada LPN - 12/24/2023 3:02 PM EDT Pt picked up temp supply until Rx could be sent to mail order. Patient's request for medication is as follows: Requested Prescriptions Pending Prescriptions Disp Refills amLODIPine (NORVASC) 5 mg tablet 90 tablet 3 Sig: Take 1 tablet by mouth once daily. chlorthalidone (HYGROTON) 50 mg tablet 90 tablet 3 Sig: Take 1 tablet by mouth once daily. ezetimibe (ZETIA) 10 mg tablet 90 tablet 3 Sig: Take 1 tablet by mouth once daily. potassium chloride SR (MICRO-K) 10 mEq CR capsule 90 capsule 3 Sig: Take 1 capsule by mouth once daily. Last seen 11/24/2023. Follow up scheduled for 02/16/2024. Prescription(s) as above. Please process accordingly. Christopher Canada LPN [facility]08-28-[facility]24 Miscellaneous Notes* Telephone Encounter - Christopher Feliciano LPN - 12/24/2023 3:02 PM EDT Pt picked up temp supply until Rx could be sent to mail order. Patient's request for medication is as follows: Requested Prescriptions Pending Prescriptions Disp Refills amLODIPine (NORVASC) 5 mg tablet 90 tablet 3 Sig: Take 1 tablet by mouth once daily. chlorthalidone (HYGROTON) 50 mg tablet 90 tablet 3 Sig: Take 1 tablet by mouth once daily. ezetimibe (ZETIA) 10 mg tablet 90 tablet 3 Sig: Take 1 tablet by mouth once daily. potassium chloride SR (MICRO-K) 10 mEq CR capsule 90 capsule 3 Sig: Take 1 capsule by mouth once daily. Last seen 11/24/2023. Follow up scheduled for 02/16/2024. Prescription(s) as above. Please process accordingly. Christopher Canada LPN documented in this encounterMarymount Hospital08-26-2024 Telephone encounter Note * Telephone Encounter - Maia Zhou RN - 12/22/2023 1:19 PM EDT Pt called in and states she will run out of chlorthalidone before receiving it from [employer]. Requests 30 day supply to [facility] in [place]. I called in Chlorthalidone 50 mg 1 tablet by mouth daily, 30 day supply Maia Zhou RN [facility]08-26-[facility] Miscellaneous Notes* Telephone Encounter - Maia Zhou RN - 12/22/2023 1:19 PM EDT Pt called in and states she will run out of chlorthalidone before receiving it from [employer]. Requests 30 day supply to [employer] [facility] [employer] in [place]. I called in Chlorthalidone 50 mg 1 tablet by mouth daily, 30 day supply Maia Zhou RN documented in this encounterMarymount Hospital08-26-2024 Telephone encounter Note * Telephone Encounter - Shannon Ramachandran LPN - 12/22/2023 8:50 AM EDT Patient's request for medication is as follows: Requested Prescriptions Pending Prescriptions Disp Refills amLODIPine (NORVASC) 5 mg tablet 30 tablet 0 Sig: Take 1 tablet by mouth once daily. chlorthalidone (HYGROTON) 50 mg tablet 30 tablet 0 Sig: Take 1 tablet by mouth once daily. ezetimibe (ZETIA) 10 mg tablet 30 tablet 0 Sig: Take 1 tablet by mouth once daily. potassium chloride SR (MICRO-K) 10 mEq CR capsule 30 capsule 0 Sig: Take 1 capsule by mouth once daily. Patient called in and states she only has 3 days left of current supply. She will now need a 30 daysupply to local and then will call in for a mail order supply. Prescription(s) as above. Please process accordingly. Shannon Ramachandran LPN [facility]08-26-[facility] Miscellaneous Notes* Telephone Encounter - Shannon Ramachandran LPN - 12/22/2023 8:50 AM EDT Patient's request for medication is as follows: Requested Prescriptions Pending Prescriptions Disp Refills amLODIPine (NORVASC) 5 mg tablet 30 tablet 0 Sig: Take 1 tablet by mouth once daily. chlorthalidone (HYGROTON) 50 mg tablet 30 tablet 0 Sig: Take 1 tablet by mouth once daily. ezetimibe (ZETIA) 10 mg tablet 30 tablet 0 Sig: Take 1 tablet by mouth once daily. potassium chloride SR (MICRO-K) 10 mEq CR capsule 30 capsule 0 Sig: Take 1 capsule by mouth once daily. Patient called in and states she only has 3 days left of current supply. She will now need a 30 daysupply to local and then will call in for a mail order supply. Prescription(s) as above. Please process accordingly. Shannon Ramachandran LPN * Telephone Encounter - Radhika Guzman RN - 12/08/2023 12:00 PM EDT Patient's request for medication is as follows: Requested Prescriptions Pending Prescriptions Disp Refills amLODIPine (NORVASC) 5 mg tablet 90 tablet 3 Sig: Take 1 tablet by mouth once daily. chlorthalidone (HYGROTON) 50 mg tablet 90 tablet 3 Sig: Take 1 tablet by mouth once daily. ezetimibe (ZETIA) 10 mg tablet 90 tablet 3 Sig: Take 1 tablet by mouth once daily. potassium chloride SR (MICRO-K) 10 mEq CR capsule 90 capsule 3 Sig: Take 1 capsule by mouth once daily. Last visit 11/24/23. Next visit 02/16/24. Prescription(s) as above. Please process accordingly. Radhika Guzman RN documented in this encounterMarymount Hospital08-26-2024 Telephone encounter Note * Telephone Encounter - Tanya Abad LPN - 12/22/2023 7:18 AM EDT Prescription requests submitted in encounter 12/08/23. Radhika Guzman RN [facility]08-[facility] Miscellaneous Notes* Telephone Encounter - Tanya Abad LPN - 12/22/2023 7:18 AM EDT Prescription requests submitted in encounter 12/08/23. Radhika Guzman RN documented in this encounterMarymount Hospital08-22-2024 Telephone encounter Note * Telephone Encounter - Anabell Colby RN - 12/18/2023 3:50 PM EDT KENDAL TAYLOR ([place]: [id number]) - [id number] Methocarbamol 750MG tablets status: PA Response - Approved Created: December 17, 2023 Sent: December 18, 2023 [facility] Miscellaneous Notes* Telephone Encounter - Anabell Colby RN - 12/18/2023 3:50 PM EDT KENDAL TAYLOR ([place]: [id number]) - [id number] Methocarbamol 750MG tablets status: PA Response - Approved Created: December 17, 2023 Sent: December 18, 2023 * Telephone Encounter - Anabell Colby RN - 12/18/2023 3:24 PM EDT PA is unable to be accepted, states methocarbamol is not covered.Tizanidine is tier 2 while Methocarbamol is tier 5. Noted patient has tried Tizanidine, will try completing PA. documented in this encounterMarymount Hospital08-22-2024 Telephone encounter Note * Telephone Encounter - Anabell Colby RN - 12/18/2023 3:24 PM EDT PA is unable to be accepted, states methocarbamol is not covered.Tizanidine is tier 2 while Methocarbamol is tier 5. Noted patient has tried Tizanidine, will try completing PA. [facility] Telephone encounter Note* Telephone Encounter - Radhika Guzman RN - 12/08/2023 12:00 PM EDT Patient's request for medication is as follows: Requested Prescriptions Pending Prescriptions Disp Refills amLODIPine (NORVASC) 5 mg tablet 90 tablet 3 Sig: Take 1 tablet by mouth once daily. chlorthalidone (HYGROTON) 50 mg tablet 90 tablet 3 Sig: Take 1 tablet by mouth once daily. ezetimibe (ZETIA) 10 mg tablet 90 tablet 3 Sig: Take 1 tablet by mouth once daily. potassium chloride SR (MICRO-K) 10 mEq CR capsule 90 capsule 3 Sig: Take 1 capsule by mouth once daily. Last visit 11/24/23. Next visit 02/16/24. Prescription(s) as above. Please process accordingly. Radhika Guzman RN [facility]07-29-[facility]24 NoteHNO ID: [id number] Author: VALERIE KOTHARI MD Service: ? Author Type: Physician Type: Progress Notes Filed: 11/24/2023 16:55 Note Text: Chief Complaint: Patient presents with: New Patient: Dyspnea, htn, abn stress test Kendal Taylor is a 83 year old female referred to me by Santa Sethi. She presents with exertional fatigue and dyspnea. She is 83-year-old female, has morbid obesity, has hypertension, hyperlipidemia, started noticing fatigue since the beginning of the year. She lost her last January and since the beginning of this year, she has been experiencing exertional dyspnea and fatigue. Denies any angina. As a part of workup, she underwent two-dimensional echo on 10/16/2023 that demonstrated normal LV function without any valvular abnormalities. Similarly, an exercise nuclear stress test done on 07/21/2023 demonstrated normal exercise myocardial perfusion stress test at low workload without any ischemia. When seen today, she mentions she has a long list of allergies and has not been on any antihypertensives for the past few months. Denies any prior CO or CAD. Denies any prior cardiac interventions. Denies any prior stroke or TIA. 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 Solis - [facility] PAST SURGICAL HISTORY OF 02/02/2014 right TKA [...] Never used Substance Use Topics Alcohol use: Not Currently Drug use: Never Current Outpatient Medications Medication Sig rizatriptan (MAXALT) 10 mg tablet Take 1 tablet (10 mg) by mouth as needed (at onset of headache. May repeat after 2 hours.). Do not exceed 30 mg per day. methocarbamol (ROBAXIN) 750 mg tablet Take 1 tablet by mouth two times a day as needed. fremanezumab-vfrm ([employer] AUTOINJECTOR) 225 mg/1.5 mL auto-injector Inject 1.5 mL subcutaneously once every month. Do not shake. nitrofurantoin macrocrystal (MACRODANTIN) 50 mg capsule Take 1 capsule by mouth once daily. estradiol (E2) emollient cream 0.2 mg/gram (CPD) Finger-Tip amount applied to indicated area a (more content not included)...[facility] 11-24-2023 History of Present illness Narrative* Valerie Kothari MD - 11/24/2023 4:50 PM EDT Chief Complaint: Patient presents with: New Patient: Dyspnea, htn, abn stress test Kendal Taylor is a 83 year old female referred to me by Santa Sethi. She presents with exertional fatigue and dyspnea. She is 83-year-old female, has morbid obesity, has hypertension, hyperlipidemia, started noticing fatigue since the beginning of the year. She lost her last January and since the beginning ofthis year, she has been experiencing exertional dyspnea and fatigue. Denies any angina. As a part of workup, she underwent two-dimensional echo on 10/16/2023 that demonstrated normal LV function without any valvular abnormalities. Similarly, an exercise nuclear stress test done on 07/21/2023 demonstrated normal exercise myocardial perfusion stress test at low workload without any ischemia. When seen today, she mentions she has a long list of allergies and has not been on any antihypertensives for the past few months. Denies any prior CO or CAD. Denies any prior cardiac interventions. Denies any prior stroke or TIA. 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 Solis - [facility] PAST SURGICAL HISTORY OF 02/02/2014 right TKA [...] Never used Substance Use Topics Alcohol use: Not Currently Drug use: Never Current Outpatient Medications Medication Sig rizatriptan (MAXALT) 10 mg tablet Take 1 tablet (10 mg) by mouth as needed (at onset of headache. May repeat after 2 hours.). Do not exceed 30 mg per day. methocarbamol (ROBAXIN) 750 mg tablet Take 1 tablet by mouth two times a day as needed. fremanezumab-vfrm ([employer] AUTOINJECTOR) 225 mg/1.5 mL auto-injector Inject 1.5 mL subcutaneously once every month. Do not shake. nitrofurantoin macrocrystal (MACRODANTIN) 50 mg capsule Take 1 capsule by mouth once daily. estradiol (E2) emollient cream 0.2 mg/gram (CPD) Finger-Tip amount applied to indicated area at bedtime every other day colestipol (COLESTID) 1 gram tablet Take 3 [...] Take 200 mg by mouth once daily. omeprazole (PRILOSEC) 40 mg capsule TAKE 1 CAPSULE DAILY meclizine (ANTIVERT) 12.5 mg tab Take 1 tablet by mouth three times daily as needed (dizziness). acetaminophen (TYLENOL ORAL) Take by mouth as needed. cholecalciferol, vitamin D3, (VITAMIN D3 ORAL) Take 5,000 Units by mouth once daily. chlorthalidone (HYGROTON) 50 mg tablet Take 1 tablet by mouth once daily. potassium chloride SR (MICRO-K) 10 mEq CR capsule Take 1 capsule by mouth once daily. amLODIPine (NORVASC) 5 mg tablet Take 1 tablet by mouth once daily. ezetimibe (ZETIA) 10 mg tablet Take 1 tablet by mouth once daily. benzonatate (TESSALON PERLES) 100 mg capsule Take 2 capsules by mouth three times daily as needed. (Patient not taking: Reported on 11/24/2023) spironolactone (ALDACTONE) 25 mg tablet Take 1 tablet by mouth once daily. (Patient not taking: Reported on 11/24/2023) fluconazole (DIFLUCAN) 150 mg tablet Take 1 tablet by mouth Every 3 Days. (Patient not taking: Reported on 11/24/2023) ketoconazole (NIZORAL) 2 % shampoo Apply to scalp rash every other day until clear- Lather and rinse and then lather 2nd time and leave set on hair for 5 min and rinse again. (Patient not taking: Reported on 04/22/2023) HYDROcodone-acetaminophen (NORCO) 5-325 mg per tablet Take 1 tablet by mouth every 8 hours as needed for pain. (Patient not taking: Reported on 04/22/2023) diphenoxylate-atropine (LOMOTIL) 2.5-0.025 mg per tablet Take 1 tablet by mouth twice daily as needed for diarrhea for up to 90 days. No current facility-administered medications for this visit. ALLERGIES Allergen Reactions Cristine Inhibitors Other: See Comments listril, zestril; makes [...] Levaquin [Levofloxa* Intolerance Dizziness at 500mg dose Lisinopril Other: See Comments Dizziness, almost passed out Pneumovax 23 [Pneum* Other: See Comments had one in 1997,, had reaction; arm swelled up for about 8 months [id number] Red* Other: See Comments pt declines-not work Ultram [Tramadol Hc* Other: See Comments headache Cardiac Testing ECG: Twelve-lead EKG done in the office today demonstrated normal sinus rhythm with normal EKG. No evidence of any ST or T wave changes. Review of Systems: GENERAL: No weight loss, malaise or fevers. HEENT: Negative for frequent or significant headaches, No changes in hearing or vision, no nose bleeds or other nasal problems NECK: Negative for goiter, pain or significant neck swelling RESPIRATORY: See HPI CARDIOVASCULAR: See H GI: No nausea, vomiting, or diarrhea MUSCULOSKELETAL: Negative for joint pain or swelling, back pain or muscle pain SKIN: Negative for lesions, rash, and itching. ENDOCRINE: Negative for cold or heat intolerance, polyuria or polydipsia. NEURO: No history of headaches, syncope, paralysis, seizures or tremors BP 158/91 (BP Site: Left Arm, BP Position: Sitting, BP Cuff Size: Regular Adult) Pulse 93 Ht 4'11 (1.499 m) Wt 168 lb (76.2 kg) SpO2 97% BMI 33.93 kg/m General physical examination: General Appearance: Well appearing, alert, in no acute distress, well-hydrated, well nourished.. Skin: Skin color, texture, turgor normal, no suspicious rashes or lesions. Head: Normocephalic, no masses, lesions, tenderness or abnormalities. Eyes: Anicteric sclera. Pupils are equally round and reactive to light. Extraocular movements are intact. . Neck: Supple, no adenopathy; thyroid symmetric, normal size, no bruits. Lungs: Lungs clear to auscultation. No wheezing, rhonchi, rales.. Heart: regular rate and rhythm, no murmur, gallop or rub, normal, S1, S2, physiologic split, no lifts, heaves, or thrills, PMI not displaced Peripheral Pulses: Normal. ASSESSMENT/PLAN: 1. Primary hypertension - ICD9: 401.9, ICD10: I10 (primary diagnosis) - Uncontrolled -Per patient, she has initially tolerated chlorthalidone. Will start her on 50 mg daily. Will starther on low-dose potassium supplementation. -I have also started her on amlodipine 5 mg on a regular basis. - Recommend home blood pressure monitoring, to bring results to next visit - Encouraged sodium restriction, DASH or Mediterranean diet - Recommend regular aerobic exercise - CHLORTHALIDONE 50 MG TABLET - AMLODIPINE 5 MG TABLET 2. Mixed hyperlipidemia - ICD9: 272.2, ICD10: E78.2 -She is intolerant to statin. I will start her on Zetia 10 mg daily. - Counseled on healthy diet and regular exercise - EZETIMIBE 10 MG TABLET 3. Exertional dyspnea - ICD9: 786.09, ICD10: R06.09 -She does not have any true angina and mostly her symptoms are atypical. Will check fasting lipid profile. - THYROID STIMULATING HORMONE - COMPRESSION STOCKINGS 4. Hypokalemia - ICD9: 276.8, ICD10: E87.6 -Crypto sent to the pharmacy. - POTASSIUM CHLORIDE ER 10 MEQ CAPSULE,EXTENDED RELEASE 5. Venous stasis - ICD9: 459.81, ICD10: I87.8 -Prescription sent to the pharmacy. - COMPRESSION STOCKINGS --Will reevaluate her in 3 months. Will await results of TSH. If she continues to have symptoms, may consider cardiac catheterization. Valerie Kothari MD, MD Valerie Kothari MD, [address], [place] [address] Facsimile: [phone] * Hamida Valdez MA - 11/24/2023 3:14 PM EDT Patient has been experiencing SOB, leg swelling and fatigue. documented in this [facility]07-29-[facility]24 Instructions* Patient Instructions* Valerie Kothari MD - 11/24/2023 3:58 PM EDT Images from the original note were not included. Coronary Artery Disease View image View image What is coronary artery disease? Coronary artery disease (CAD) is a type of heart disease caused by a problem with the blood vesselsthat bring blood and oxygen to the heart muscle. These arteries are called the coronary arteries. This disease increases your risk for heart attack and sudden . What is the cause? Fatty deposits called plaque may build up in blood vessels and make them narrower. The narrowing decreases the amount of blood flow to the heart. Plaque also increases the chance that blood clots mayform and block a blood vessel, which can cause a heart attack or stroke. Your risk for CAD may be higher if you: Have a family history of coronary artery disease at an early age Smoke Have high blood pressure Have diabetes Are very overweight Don t get enough exercise Have high levels of blood fat--for example, high cholesterol What are the symptoms? Coronary artery disease may not cause any symptoms. When there are symptoms, the most common one ischest pain, called angina. You may feel: A feeling of tightness or heaviness in the chest Squeezing, pressure, or burning in the chest Angina symptoms usually: Last for 5 minutes or less and go away with rest or medicine such as nitroglycerin. Happen when the heart has to work harder, such as after a heavy meal or during physical activity oremotional stress. Angina may also happen when you are resting. Call 911 for emergency help right away if you have symptoms of a heart attack. The most common symptoms include: Chest pain or pressure, squeezing, or fullness in the center of your chest that lasts more than a few minutes, or goes away and comes back (may feel like indigestion or heartburn) Pain or discomfort in one or both arms or shoulders, or in your back, neck, jaw, or stomach Trouble breathing Breaking out in a cold sweat for no known reason If your provider has prescribed nitroglycerin for angina, pain that does not go away after taking your nitroglycerin as directed Along with these symptoms, you may also feel very tired, faint, or be sick to your stomach. How is it diagnosed? Your healthcare provider will ask about your symptoms and medical history and examine you. Tests may include: Blood tests An ECG (also called an EKG or electrocardiogram), which measures and records your heartbeat. An exercise treadmill test to see how your heart works when you exercise An echocardiogram, which uses sound waves (ultrasound) to see how well your heart is pumping Angiogram, which is a series of X-rays taken after your healthcare provider injects a special dye into your blood vessels to show the suero of the arteries and any blockage CT scan, which uses X-rays and a computer to show detailed pictures of the arteries How is it treated? Your treatment depends on many factors, such as your age, heart muscle function, and other health problems. At first, treatment may include diet changes and an exercise program. Your healthcare provider may prescribe medicine. Many people need to take 2 or more medicines to help prevent a heart attack or stroke. It may take several weeks or months to find the best treatment for you. Your provider may also prescribe other types of medicine to lower blood pressure, help stop chest pain, control an irregular heartbeat, help prevent blood clots, or lower blood fat (cholesterol). Your provider may recommend a daily low dose of aspirin. Taking an aspirin every day may lower yourrisk for a heart attack or stroke. Not everyone should take aspirin. Daily use of aspirin can causeproblems, such as stomach irritation, bleeding, and hearing loss. Ask your healthcare provider if you should take aspirin and if so, how much to take. If your coronary arteries are badly blocked, you may need balloon angioplasty or bypass surgery. A balloon angioplasty opens blocked blood vessels and improves blood flow. A metal mesh device called a stent is usually left in the blood vessels to help keep them open. Bypass surgery uses blood vessels from other parts of the body, or manmade material, to make a new path around a blocked area. How can I take care of myself? If you have coronary artery disease, there are things you can do to take care of yourself now and prevent problems in the future. Follow your provider's advice about activity, exercise, medicine, and follow-up visits. Lower the amount of salt, saturated and trans fats, and cholesterol in your diet. Work with your healthcare provider to control diabetes, blood pressure, or other health problems you may have. Try to keep a healthy weight. If you are overweight, talk to your provider about ways to lose weight. If you smoke, try to quit. Talk to your healthcare provider about ways to quit smoking. Ask your healthcare provider: How and when you will hear your test results How long it will take to recover What activities you should avoid and when you can return to your normal activities How to take care of yourself at home What symptoms or problems you should watch for and what to do if you have them Make sure you know when you should come back for a checkup. How can I help prevent coronary artery disease? You can prevent this disease with a heart-healthy lifestyle: Eat a healthy diet and keep a healthy weight. Stay fit with the right kind of exercise for you. Find ways to manage stress. Don t smoke. Limit your use of alcohol. Talk to your healthcare provider about your personal and family medical history and your lifestyle habits. This will help you know what you can do to lower your risk for coronary artery disease. If you have a strong family history of CAD, a healthy lifestyle may slow the start of the disease and maybe even keep you from getting it. However, you must have regular checkups to keep a close watch on the health of your heart. Developed by [employer]. Published by [employer]. Copyright 2014 [employer] and/or one of its subsidiaries. All rights reserved. documented in this encounterMarymount Hospital07-29-2024 NoteHNO ID: [id number] Author: HAMIDA VALDEZ MA Service: ? Author Type: Film Critic Type: Progress Notes Filed: 11/24/2023 16:55 Note Text: Patient has been experiencing SOB, leg swelling and fatigue.[facility]06-18-2024 History of Present illness Narrative* Terrance Mccain MD - 10/14/2023 4:36 PM EDT DISTANCE HEALTH VISIT This is a virtual visit using HIPAA compliant video platform. All issues as below were discussed and addressed but no physical exam was performed unless allowed by visual confirmation. If it was feltthat the patient should be evaluated in clinic then they were directed there. Patient and/or parent(s) verbally consented to visit. I have communicated my name and active licensure. The patient's identity and physical location wereverified at the time of this visit. Either the patient or their legal outside sales representative has been informed of the risks and benefits of -- and alternatives to -- treatment through a remote evaluation andconsents to proceed with the evaluation remotely. [facility] Follow up visit History of Present Illness: Ms. Taylor is a 83 year old female following up for headaches. I last saw her on 11/01/2022. Briefly, she has long history of migraines without aura that have responded well to Ajovy. She continues to do very well. Unfortunately, she lost her in January 2023 and around that time had 3 migraines. She has had no migraines since February 2024. She gets a few mild headaches right before her Ajovy dose is due. Maxalt works very well as an abortive. On rare occasion she will take Robaxin for her neck pain. She denies any side effects from any of her medications. She has no other complaints at this time. Current prophylactics: Ajovy 225 mg monthly Prior prophylactics: Amitriptyline, Aimovig (helped but caused soreness), Topamax, sertraline, pregabalin, nortriptyline, gabapentin, atenolol, Flexeril [...] no vitals taken for this visit. IMPRESSION: 83-year-old female following up for migraines without aura, doing well with Ajovy. Maxalt and Robaxin worked well as abortives. PLAN/RECOMMENDATIONS: Continue Ajovy monthly Continue Maxalt and Robaxin as needed Follow-up in 6 months The duration of this appointment visit was 20 minutes of zxha-hg-qdwg time with the patient. At least 50% of this time was spent in counseling, explanation of diagnosis, planning of further management, and coordination of care. Portions of this note have been composed using voice recognition and may contain pediatric speech therapist errors Terrance Mccain M.D. [facility] Associate Staff Department of Neurology Referring provider: No referring provider defined for this encounter. Primary care provider: Santa Sethi [address] [address] documented in this encounterMarymount Hospital06-18-2024 NoteHNO ID: [id number] Author: TERRANCE MCCAIN MD Service: ? Author Type: Physician Type: Progress Notes Filed: 10/14/2023 16:58 Note Text: DISTANCE HEALTH VISIT This is [...] visit. Either the patient or their legal outside sales representative has been informed of the risks and benefits of -- and alternatives to -- treatment through a remote evaluation and consents to proceed with the evaluation remotely. [facility] Follow up visit History of Present Illness: Ms. Taylor is a 83 year old female following up for headaches. I last saw her on 11/01/2022. Briefly, she has long history of migraines without aura that have responded well to Ajovy. She continues to do very well. Unfortunately, she lost her in January 2023 and around that time had 3 migraines. She has had no migraines since February 2024. She gets a few mild headaches right before her Ajovy dose is due. Maxalt works very well as an abortive. On rare occasion she will take Robaxin for her neck pain. She denies any side effects from any of her medications. She has no other complaints at this time. Current prophylactics: Ajovy 225 mg monthly Prior prophylactics: Amitriptyline, Aimovig (helped but caused soreness), Topamax, sertraline, pregabalin, nortriptyline, gabapentin, atenolol, Flexeril [...] no vitals taken for this visit. IMPRESSION: 83-year-old female following up for migraines without aura, doing well with Ajovy. Maxalt and Robaxin worked well as abortives. PLAN/RECOMMENDATIONS: Continue Ajovy monthly Continue Maxalt and Robaxin as needed Follow-up in 6 months The duration of this appointment visit was 20 minutes of vgmh-jc-nixy time with the patient. At least 50% of this time was spent in counseling, explanation of diagnosis, planning of further management, and coordination of care. Portions of this note have been composed using voice recognition and may contain pediatric speech therapist errors Terrance Mccain M.D. [facility] Associate Staff Department of Neurology Referring provider: No referring provider defined for this encounter. Primary care provider: Santa Sethi [address] [place] [id number] [facility] Miscellaneous Notes* Telephone Encounter - Linda Nava - 06/25/2023 1:11 PM EST Kendal is calling Terrance Mccain MD today to request a 90 day supply of : fremanezumab-vfrm (AJOVYAUTOINJECTOR) 225 mg/1.5 mL auto-injector to be sent to [facility]. It costs her more if she only gets one at a time like the current script is written for. No chief complaint on file. Patient has been identified by name and birthdate. Duration of symptoms: N/A Person calling: self Call patient at: on cell [phone] (home) [phone] (cell) Was an appointment scheduled: No Closing statement: Results or non-symptom based questions: Thank you for calling [facility], your call will be returned within the next business day. Linda Martínez documented in this encounterMarymount Hospital09-19-2023 History of Present illness Narrative* Lyly Calvillo PA-C - 01/14/2023 10:59 AM EDT This note was created using ABSter. Subjective Kendal Taylor is a 82 year old female. HPI Patient presents with a chief complaint of sinus pressure and congestion over the past 10 days. Shehas had a cough. No chest pain. She states sometimes it is productive. She had a fever in the beginning but none since then. She did take some Tylenol today for her headache. No home COVID test done.She denies sick contacts. No diarrhea or vomiting. [...] mg capsule Take 1 capsule by mouth twicedaily for 7 days. 14 capsule 0 rizatriptan [...] mouth three times daily as needed (dizziness). 90tablet 1 acetaminophen (TYLENOL ORAL) Take by mouth [...] B/L bunion surgery - Dr. Solis - [facility] PAST SURGICAL HISTORY OF 02/02/2014 right TKA [...] worsen. Lyly Calvillo PA-C documented in this encounterMarymount Hospital09-16-2023 Miscellaneous Notes* Telephone Encounter - Hanna Krishnamurthy LPN - 01/11/2023 8:50 AM EDT Left detailed message on identifiable voicemail * Telephone Encounter - Vandana Delcid APRN.[facility] - 01/11/2023 8:09 AM EDT Is on the correct antibiotic according to urine culture please make sure symptoms are improving. Ifsymptoms or not improving she should follow-up with primary care. documented in this encounterMarymount Hospital09-15-2023 Miscellaneous Notes* Telephone Encounter - Michell Graham - 01/10/2023 3:47 PM EDT Patient returned call. She reports she is taking macrobid as directed by EC until 01/15/23. She verbalized understanding to resume the 50 mg Macrodantin the following day. She does have a prescriptionof the macrodantin coming [facility]. * Telephone Encounter - Linda Hirsch Ma - 01/10/2023 10:07 AM EDT I called and left a message for the patient to contact the office. * Telephone Encounter - Jennifer Ledesma PA-C - 01/10/2023 9:26 AM EDT I recommend holding 50 mg Macrodantin only when taking full course of antibiotics for UTI JOHANNA Combs, PRMECHE * Telephone Encounter - Flower Baez LPN - 01/09/2023 1:53 PM EDT Patient called. Verified name and date of . Patient seen in Urgent Care yesterday for UTI and was ordered Macrodantin 100 MG by mouth twice daily for seven days. She is questioning being able toresume taking Macrodantin 50 MG daily as maintenance [...] advise. Flower Baez LPN documented in this encounterMarymount Hospital09-13-2023 History of Present illness Narrative* Petey Campos MD - 01/08/2023 1:54 PM EDT Patient presents with: Urinary Frequency: burning with [...] for this visit. ALLERGIES: ALLERGIES Allergen Reactions Cristine Inhibitors Other: See Comments listril, zestril; makes headaches worse Advair Diskus [Flut* Intolerance sore mouth Albuterol Intolerance anxiety,jitters,tachycardia Amitriptyline Mental Status Change sedation with high doses only. Takes regularly Amoxicillin Hives HIVES Bactrim [Sulfametho* Rash, Other: See Comments fever from medication Caffeine Mental Status Change NAUSEA, MIGRAINES excedrin plus Mountain Dew but can tolerate low dose caffeine seizure 1979 Codeine GI Upset, Other: See Comments NAUSEA, MIGRAINES Doxycycline Hyclate Hives hives Hydantoins Other: See Comments Dilantin; does not remember reaction Levaquin [Levofloxa* Intolerance Dizziness at 500mg dose Pneumovax 23 [Pneum* Other: See Comments had one in 1997,, had reaction; arm swelled up for about 8 months Uxrkmdc-Lil-Ufn Red* Other: See Comments pt declines-not work [...] fellowship. Petey Campos MD documented in this encounterMarymount Hospital09-05-2023 Miscellaneous Notes* Telephone Encounter - Rafaela Montano - 12/31/2022 5:22 PM EDT KOREY Felipe completed and approved documented in this encounterMarymount Hospital07-18-2023 History of Present illness Narrative* Altaf Katz APRN.JACKLYN - 11/12/2022 11:08 AM EDT Nontoxic-appearing female presents urgent care chief complaint [...] agrees with plan of care. Altaf Katz APRN.JACKLYN documented in this encounterMarymount Hospital07-18-2023 History and physical note Author Shalom Pratt [facility] November 12, 2022 9:18am Note Date/Time November 12, 2022 8:29 am [facility] Medical Records Department [address] [place] [address] History & Physical Exam 11/12/22 0828 MR#: [id number] Acct: [id number] Name: KENDAL TAYLOR Rep #:[id number] : 1940 82 From: Shalom Pratt MD PCP: Dr. Santa Sethi MD Status:[facility] Location: [place] [address] History and Physical Date of Admission: 11/12/22 Visit Reasons: COLONOSCOPY Chief Complaint: colonoscopy Is patient in pain?: No Allergies albuterol Allergy (Verified 10/22/22 13:15) Unknownamoxicillin Allergy (Verified 10/22/22 13:15) HivesPenicillins Allergy (Verified 10/22/22 13:15) Hivessulfamethoxazole [From Bactrim] Allergy (Verified 10/22/22 13:15) Hivestrimethoprim [From Bactrim] Allergy (Verified 10/22/22 13:15) Hives Medications cholestyramine-aspartame 4 gram oral powder (Cholestyramine Light) 1 dose PO DAILY 06/18/18 [History Confirmed 10/22/22] omeprazole 20 mg capsule,delayed release 20 mg PO DAILY 06/18/18 [History Confirmed 10/22/22] cholecalciferol (vitamin D3) 125 mcg (5,000 unit) capsule 125 mcg PO DAILY 08/28/22 [History Confirmed 10/22/22] coq10 PO 08/28/22 [History Confirmed 10/22/22] fremanezumab-vfrm 225 mg/1.5 mL subcutaneous auto-injector (Ajovy) 225 mg subcutQMONTH 08/28/22 [History Confirmed 10/22/22] ketonazole shampoo topical 08/28/22 [History Confirmed 10/22/22] magnesium 250 mg tablet See Rx Instructions PO DAILY 08/28/22 [History Confirmed 10/22/22] meclizine 12.5 mg tablet 12.5 mg PO BID-QID PRN 08/28/22 [History Confirmed 10/22/22] methocarbamol 750 mg tablet 750 mg PO .COMPLEX PRN 08/28/22 [History Confirmed 10/22/22] riboflavin (vitamin B2) 100 mg tablet 100 mg PO BID 08/28/22 [History Confirmed 10/22/22] rizatriptan 10 mg tablet See Rx Instructions PO .COMPLEX 08/28/22 [History Confirmed 10/22/22] spironolactone 25 mg tablet 25 mg PO DAILY 08/28/22 [History Confirmed 10/22/22] sucralfate 1 gram tablet 1 g PO BID 08/28/22 [History Confirmed 10/22/22] triamcinolone acetonide 0.1 % topical cream 1 applic topical BID #30 grams 09/11/22 [Rx Confirmed 10/22/22] diclofenac sodium 1 % topical gel 2 g topical BID PRN Osteoarthritis #100 grams 09/30/22 [Rx Confirmed 10/22/22] PFSH Medical History (Updated 10/22/22 @ 13:[address] Shalom Pratt MD) Chronic GERD Degenerative disc disease GERD (gastroesophageal reflux disease) Hearing problem High cholesterol Hypertension IBS (irritable bowel syndrome) Migraines Osteoarthritis Recurrent infections UTI (urinary tract infection) Surgical History (Updated 08/28/22 @ 09:42 by Omega Bustillos) Bunion FH: cholecystectomy H/O: hysterectomy History of bladder surgery History of knee replacement Family History (Updated 08/28/22 @ 09:59 by Omega Bsutillos) Mother Hypertension Arthritis Bowel disease Myocardial infarction, Onset Age: 70 Age related osteoporosisFather Diabetes Myocardial infarction, Onset Age: 50 Social History (Updated 09/11/22 @ 15:26 by Omega Bustillos) adopted: No household members: spouse housing: house number of children: 6 current occupational status: employed current occupation: [employer] current occupational exposures/hazards: No pets and animals: Yes pets and animals: cat(s) leisure activities: exercise, reading and other history of recent travel: No sexually active: No Smoking Status: Never smoker alcohol intake: never substance use type: does not use well-balanced diet: daily or most days caffeine: No eating out: rarely or never during the past year weight has: increased > 10 lbs what type of physical activity do you participate in: walking and aerobics brenda/episcopal: Worship seatbelt use: always do you feel safe at home: Yes HPI HPI HPI: 82-year-old female was referred by Dr. Santa Sethi for surgical consultation regarding colonoscopy. Most recent colonoscopy was January 09, [address] Bhavin Brown. By report she might of had previous polyps. It is a note that she has also had a previous esophagogastroduodenoscopy November 02, 2018 which demonstrated normal esophagus some mild gastritis. That was performed by Dr. Toy Clay. Past 2 years the patient's had progressive diarrhea. She is tentatively been diagnosed as having irritable bowel syndrome. To help with her symptoms she wasstarted on colestipol which has helped. No bright red blood per rectum or melena. Last colonoscopy was over 10 years ago. She does have any abdominal pain. Note no unexpected weight loss. 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 She does get swelling in her legs but she is able to relieve that in the afternoons by elevating her legs. She has been told that recently a slight heart murmur was detected but that that is not felt to be of consequence. She is interested however in trying to help determine the potential source of her diarrhea and any other particular treatment patterns that might be pertinent. ROS General General: Yes fatigue; No weight change, appetite, colon cancer, breast cancer or weakness HEENT HEENT: Yes eye surgery; No difficulty swallowing, eye injury, swollen glands or hoarseness Endo Endocrine: No thyroid disease, diabetes mellitus, thyroid cancer, Hair loss, heat intolerance or cold intolerance Skin Skin: Yes rash; No changing moles Musc Musculoskeletal: Yes arthritis; No back problems, rheumatoid arthritis, gout or joint pain Cardio Cardiovascular: Yes murmur and high blood pressure; No pacemaker, heart disease, atrial fibrillation, heart attack, heart stent, palpitations, shortness of breat with exertion or chest pain Psych Psychiatric: No depression, anxiety or hearing voices Resp Respiratory: Yes shortness of breath, No sleep apnea, No cough, No COPD, No asthma, No emphysema and No wheezing Gastro Gastrointestinal: No abdominal pain, No nausea or vomiting, Yes diarrhea, No constipation, No blood in stool, Yes acid reflux, Yes hemorrhoids, No ulcers, Nogallbladder problem and No black,tarry stools Kevin Hematologic: No blood thinners, No blood disorders, No bleeding, No anemia and No blood clots Neuro Neurologic: No system reviewed and no additional complaints, except as documented, No as per HPI, No abnormal gait, No abnormal hearing, No abnormal movements, No abnormal speech, No behavioral changes, No burning sensations, No confusion, No convulsions, No disequilibrium, No dizziness, No localized weakness, No frequent falls, No headache(s), No lack of coordination, No loss ofvision, No memory loss, No numbness, No other visual disturbances, No radicular pain, No restless legs, No sensory deficit, No syncope, No tingling, No tremor(s), No weakness and No other Exam Const General: cooperative, comfortable and no acute distress HENPR Head: normal to inspection Eyes General: appearance normal, both eyes and all related structures Neck Neck: normal visual inspection Chest Chest palpation & inspection: normal inspection of the chest Resp Effort & Inspection: normal respiratory effort Auscultation: clear to auscultation bilaterally Cardio Rate: regular rate Rhythm: regular rhythm GI Inspection: normal to inspection Palpation: soft and no hepatosplenomegaly Musc Cervical Spine: normal cervical lordosis Skin General: no rashes or lesions noted Neuro General: patient alert and patient awake Extrem Other: 2+ bilateral extremity nonpitting edema Psych Appearance: grossly normal Assessment and Plan Assessment and Plan (1) Chronic diarrhea: Status: Chronic Plan Chronic diarrhea of undetermined etiology. The patient is living a very high quality of life and is still fully employed for close to 40 hours/week. I recommend to her colonoscopy with possible biopsy or polypectomy as indicated. Careful inspection for source of diarrhea with possible random biopsies. She ishad an opportunity ask and have questions answered. I very much appreciate the kind option of assisting with the surgical care. We will schedule procedure at her discretion. Copy: Dr. Santa Pratt M.D., F.A.C.S I have examined the patient and the H&P has been reviewed. There are no clinicalchanges since date of exam. Shalom Pratt M.D., F.A.C.S. 11/12/22 0828 <Electronically signed by Shalom Pratt MD> Cosigner Signature (if applicable): CC: Dr. Santa Sethi MD; Dr. Shalom Pratt MD~ Signed ADDENDUM by Dr. Shalom Pratt MD on 11/12/22 at 0918 Addendum Patient states that partway through her prep yesterday she became dizzy and fellon the bathroom floor. She absolutely denies hitting her head but she does complain of 6 significant soreness to the left foot. Because she was in the midst of the prep she has not yet sought attention. The left foot is ecchymotic. The patient is complaining some numbness of the toes. After discussion with anesthesiologist Dr. Alex Fitzpatrick we will pursue the colonoscopyand then have the patient taken to the emergency room for evaluation of her leftfoot Shalom Pratt M.D., KevinS. 11/12/22 0918<Electronically signed by Shalom Pratt MD> Cosigner Signature (if applicable): cc: Dr. Santa Sethi MD; Dr. Shalom Pratt MD ~* Signed [facility] Work Phone: 1(256) 380-349007-18-2023 Procedure [facility] 11-12-2022 Procedure [facility]07-07-2023 History of Present illness Narrative* Terrance Mccain MD - 11/01/2022 11:15 AM EDT DISTANCE HEALTH VISIT This is a virtual visit using HIPAA compliant video platform. All issues as below were discussed and addressed but no physical exam was performed unless allowed by visual confirmation. If it was feltthat the patient should be evaluated in clinic then they were directed there. Patient and/or parent(s) verbally consented to visit. I have communicated my name and active licensure. The patient's identity and physical location wereverified at the time of this visit. Either the patient or their legal outside sales representative has been informed of the risks and benefits of -- and alternatives to -- treatment through a remote evaluation andconsents to proceed with the evaluation remotely. [facility] Follow up visit History of Present Illness: [...] this appointment visit was 20 minutes of acix-zq-atcg time with the patient. At least 50% of this time was spent in counseling, explanation of diagnosis, planning of further management, and coordination of care. Portions of this note have been composed using voice recognition and may contain pediatric speech therapist errors Terrance Mccain M.D. [facility] Associate Staff Department of Neurology Referring provider: No referring provider defined for this encounter. Primary care provider: Kenney Atkins [address] [place] [address] documented in this encounterMarymount Hospital04-26-2023 Miscellaneous Notes* Telephone Encounter - Riya Rodriguez MA - 08/21/2022 4:01 PM EDT ABRAM: 06/18/2022 NOV: Visit date not found Orders Pended Riya Rodriguez MA * Telephone Encounter - Linda Nava - 08/21/2022 3:48 PM EDT Patient has been identified by name and date of : Yes Requested Prescriptions Pending Prescriptions Disp Refills fremanezumab-vfrm (AJOVY AUTOINJECTOR) 225 mg/1.5 mL auto-injector Sig: Inject 1.5 mL subcutaneously once every month. Do not shake. RX INSTRUCTIONS: Patient aware RX will be sent to pharmacy. No need to notify patient. Linda Martínez documented in this encounterMarymount Hospital03-28-2023 History of Present illness Narrative* Kenney Atkins MD - 07/23/2022 9:48 AM EDT Reason for Visit Patient presents with: Follow [...] 5 weeks she felt good and beginning lastweek she started feeling Tired again. 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 Solis - [facility] PAST SURGICAL HISTORY OF 02/02/2014 right TKA [...] it. Kenney Atkins MD documented in this encounterMarymount Hospital03-14-2023 Miscellaneous Notes* Telephone Encounter - Shawanda Hilliard - 07/09/2022 4:08 PM EDT Physician: Wan Call from patient requesting refill. Please E-Scribe Last OV: 06/18/2022 with Wan Future OV: Not Scheduled. Requested Prescriptions Pending Prescriptions Disp Refills rizatriptan (MAXALT) 10 mg tablet 10 tablet 3 Sig: Take 1 tablet by mouth as needed (at onset of headache. May repeat after 2 hours.). Do not exceed 30 mg per day. [facility]acy [facility]: [facility] Shawanda Hilliard documented in this encounterMarymount Hospital02-10-2023 Miscellaneous Notes* Telephone Encounter - Janneth Acevedo Ma - 06/07/2022 8:51 AM EST Left detailed message on Livescribe. * Telephone Encounter - Janneth Acevedo Ma - 06/07/2022 8:48 AM EST ----- Message from Kenney Atkins MD sent at 06/06/2022 8:06 AM EST ----- Please let her know that her thyroid, vit b12 and vit d which are normal Regards, Kenney Atkins MD documented in this encounterMarymount Hospital02-07-2023 History of Present illness Narrative* Kenney Atkins MD - 06/04/2022 1:36 PM EST Reason for Visit Patient presents with: Follow [...] B/L bunion surgery - Dr. Solis - [facility] PAST SURGICAL HISTORY OF 02/02/2014 right TKA [...] medication. Kenney Atkins MD documented in this encounterMarymount Hospital01-20-2023 History of Present illness Narrative* Nellie Sanitago APRN.[employer]EL[employer] SALES REPRESENTATIVE - 05/17/2022 1:10 PM EST Kendal Taylor is a 82 year old [...] L6 SAB1 IAB0 Ectopic0 Multiple0 Live Births0 Patient Access Registrar History LMP: Hysterectomy Age at Menarche: Age at First : Age at Menopause: Patient Access Registrar History Comments: Sexual Activity: Yes; Male; seldom [...] B/L bunion surgery - Dr. Solis - [facility] PAST SURGICAL HISTORY OF 02/02/2014 right TKA [...] MIST) 0.65 % nasal spray Use 1 [place] in the nose as needed for cold/allergysymptoms. rizatriptan (MAXALT) 10 mg tablet Take 1 [...] 0.5 tablets by mouth once daily. fremanezumab-vfrm (Contentment LtdOV[employer]ousell AUTOINJECTOR) 225 mg/1.5 mL auto-injector Inject 1.5 [...] As of Date: 05/17/2022 Allergen Noted Reaction CRISTINE INHIBITORS 05/13/2003 Other: See Comments ADVAIR DISKUS [FLUTICASONE PROPIO*04/04/2011 Intolerance ALBUTEROL 04/04/2011 Intolerance AMITRIPTYLINE 02/23/2015 Mental Status Change AMOXICILLIN 05/13/2003 Hives BACTRIM [SULFAMETHOXAZOLE-TRIMETH*12/10/2010 Rash and Other: See Comments CAFFEINE 05/13/2003 Mental Status Change CODEINE GI Upset and Other: See Comments DOXYCYCLINE HYCLATE 08/10/2007 Hives HYDANTOINS 05/13/2003 Other: See Comments LEVAQUIN [LEVOFLOXACIN] 10/13/2018 Intolerance PNEUMOVAX 23 [PNEUMOCOCCAL 23-SANTOSH*08/09/2005 Other: See Comments HFAVXVX-FSF-XGH REDUCTASE INHIBIT*03/22/2015 Other: See Comments ULTRAM [TRAMADOL HCL] 02/21/2014 Other: See Comments Fully Assessed 05/17/2022 REVIEW OF SYSTEMS Expanded ROS: N/A Allergies and current medication updated:Yes EXAM: BP 132/70 Wt 152 lb (68.9kg) GENERAL: pleasant, female in no apparent distress HEENT: Normocephalic, atraumatic, and no lesions CHEST: Normal inspiratory effort PELVIC: external genitalia normal, normal Bartholin's glands, urethra, Magalia's glands, physiologic discharge present, normal appearing perineal [...] to the office for removal Nellie Santiago APRN.JACKLYN Medical Decision Making: Problems: Low: Acute, uncomplicated illness or injury Risk: Low: Low risk from testing/treatment Medical Decision Making Level: 3 - Low documented in this encounterMarymount Hospital01-18-2023 Miscellaneous Notes* Telephone Encounter - Sil Duque LPN - 05/15/2022 8:43 AM EST ----- Message from Kenney Atkins MD sent at 05/15/2022 6:29 AM EST ----- Will address in upcoming office visit documented in this encounterMarymount Hospital01-16-2023 Miscellaneous Notes* Telephone Encounter - Kenney Atkins MD - 05/13/2022 5:30 PM EST Sent her the fluconazole. Regards, Kenney Atkins MD * Telephone Encounter - Keira Guzman RN - 05/13/2022 8:22 AM EST Pt reports she was recently on antibiotics for a sinus infection. She reports she has a vaginal yeast infection and asking if provider would order her treatment? Requesting [facility]. Please call pt with update. Thank you. documented in this encounterMarymount Hospital01-05-2023 Miscellaneous Notes* Telephone Encounter - Elda Fu LPN - 05/02/2022 9:34 AM EST Next appointment 05/21/22 * Telephone Encounter - Michell Canales - 05/02/2022 9:17 AM EST Patient has been identified by name and [...] and advise. Michell Canales documented in this encounterMarymount Hospital01-02-2023 History of Present illness Narrative* Petey Campos MD - 04/29/2022 9:35 AM EST Patient presents with: Sinus Infection,frequent/recurring: X2 weeks Seen 04/23 for same HPI: Feeling sick for 3 weeks. Seen 1 week ago and tested negative for COVID and influenza. She feels nobetter and symptoms are moving to her chest. She worked a couple days last week, but does not feel well enough to work currently. Positive symptoms: Cough, Chest tightness, Sore throat, Sinus pressure, Nasal Congestion, Headache,Rhinorrhea (had blood today), Post nasal drainage, Body [...] MIST) 0.65 % nasal spray Use 1 [place] in the nose as needed for cold/allergysymptoms. rizatriptan (MAXALT) 10 mg tablet Take 1 [...] 0.5 tablets by mouth once daily. fremanezumab-vfrm (Contentment LtdOVY AUTOINJECTOR) 225 mg/1.5 mL auto-injector Inject 1.5 [...] OTHER As Directed ALLERGIES: ALLERGIES Allergen Reactions Cristine Inhibitors Other: See Comments listril, zestril; makes [...] arm swelled up for about 8 months Ahuvjff-Prj-Nkd Red* Other: See Comments pt declines-not work [...] provided. Petey Campos MD documented in this encounterMarymount Hospital12-28-2022 Miscellaneous Notes* Telephone Encounter - Violet Ac - 04/24/2022 7:02 AM EST Left detailed message on a secured voicemail. Violet Ac * Telephone Encounter - Nicole Webster APRN.[facility] - 04/24/2022 6:49 AM EST Please notify of negative influenza and covid test. Continue comfort measures for symptoms as you would for a cold. Any worsening symptoms follow up with PCP or ER. Nicole Webster APRN.JACKLYN documented in this encounterMarymount Hospital12-27-2022 History of Present illness Narrative* Margaux Aaron APRN.JACKLYN - 04/23/2022 9:23 AM EST Subjective HPI Kendal presents today with two weeks hx of sinus congestion, throat irritation, ears are popping, and dry cough, she has not had a fever, she is eating and drinking n/v/d. Her is sick as well. Blood pressure 138/90, pulse 96, temperature 37 C (98.6 F), resp. rate 18, weight 68.5 kg (151 lb),SpO2 100 %. PAST MEDICAL HISTORY Diagnosis Date [...] B/L bunion surgery - Dr. Solis - [facility] PAST SURGICAL HISTORY OF 02/02/2014 right TKA & I&D of right TKA on 02/23/14 PAST SURGICAL HISTORY OF 06/02/2015 right ring trigger finger release [facility] N/CARPAL TUNNEL SURG 06/02/2015 right carpal tunnel release SKIN BX, 1 LESION 03/10/12 Left cheek skin lesion bx TOTAL ABDOMINAL HYSTERECT W/WO RMVL TUBE OVARY 1980 ALLERGIES Cristine Inhibitors, Advair Diskus [Fluticasone Propion-Salmeterol], Albuterol, Amitriptyline,Amoxicillin, Bactrim [Sulfamethoxazole-Trimethoprim], Caffeine, Codeine, Doxycycline Hyclate, Hydantoins, Levaquin [Levofloxacin], Pneumovax 23 [Pneumococcal 23-Santosh Ps Vaccine], Inkfsdl-Dpv-Ntv Reductase Inhibitors, and Ultram [Tramadol Hcl] MEDICATIONS [...] mouth once daily.^Disp: 90 tablet^Rfl: 3 fremanezumab-vfrm (Contentment Ltd[employer]ell AUTOINJECTOR) 225 mg/1.5 mL auto-injector^Inject 1.5 mL [...] up is needed Increase fluids Margaux Aaron APRN.JEWELRY SALES REPRESENTATIVE documented in this encounterMarymount Hospital12-09-2022 Miscellaneous Notes* Telephone Encounter - Riya Rodriguez MA - 04/05/2022 8:50 AM EST ABRAM: 01/10/2022 NOV: 05/24/2022 Orders Pended Riya Rodriguez MA * Telephone Encounter - Imtiaz Martínez - 04/04/2022 2:43 PM EST Patient has been identified by name and [...] patient. Imtiaz Christopher Pss documented in this encounterMarymount Hospital10-18-2022 History of Present illness Narrative* Kenney Atkins MD - 02/12/2022 12:25 PM EDT Reason for Visit Patient presents with: Recheck: [...] in 3 months with the combination. Sees [facility] for trigger finger and mucinous cyst , was drained but it is coming back She is still working at [employer] 4 days a week and one days she works 7 hours. Has been having sinus infection and pressure in the throat, it has been just green, for the past 12days, Pain behind the maxillary and the frontal [...] B/L bunion surgery - Dr. Solis - [facility] PAST SURGICAL HISTORY OF 02/02/2014 right TKA [...] DIFF Kenney Atkins MD documented in this encounterMarymount Hospital10-14-2022 Miscellaneous Notes* Telephone Encounter - Janine Betzy - 02/08/2022 10:59 AM EDT She should not take the [place] Narcotic Pain Meds while on Diflucan it can interact. Jennifer Ledesma MPAS, MT, PA-C Pt advised and verbalizes understanding. Janine Bo MA documented in this encounterMarymount Hospital09-30-2022 Miscellaneous Notes* Telephone Encounter - Esequiel Santana RN - 01/25/2022 8:34 AM EDT Patient reports [facility] tells her they cannot get sucralfate right now, something to do with the lens marker. Advised her to ask pcp to send 30 day supply to [facility]. Pended. Patient ask office to phone her when Rx is sent. documented in this encounterMarymount Hospital09-22-2022 Miscellaneous Notes* Telephone Encounter - Ramandeep Siu RN - 01/17/2022 3:34 PM EDT Received voicemail 01-17-22 at 2:39 PM. I'm Kendal Taylor. My date is 42. I've seen Teresa Rodriguez on January 10 and he wanted me to get an appointment with Dr. Morro Otto and I have not been able to get an appointment it's going to have to be through your office. Thank you. My phone number is [phone]. Forwarded to Pain PSS pool to contact patient to schedule. DOROTHY Ho, RN January 17, 2022 3:35 PM documented in this encounterMarymount Hospital09-15-2022 History of Present illness Narrative* Teresa Rodriguez PA-C - 01/10/2022 2:44 PM EDT Images from the original note were not included. Teresa [facility] [address] [address] 01/10/2022 ASSESSMENT AND PLAN: Assessment : Encounter [...] not sure I can connect the dots betweenthose injections and her right ocular symptoms. She is willing to retry injections. I would start with MBB's and eventually consider RFA's if symptoms return and persist Plan : REFERAL FOR SERVICES: -Consult to Pain Anesthesia: The purpose will be for both diagnostic and therapeutic purposes. The patient is instructed to pay attention to the amount of pain during the anesthetic phase, and duringthat time to perform the activities that typically exacerbate the pain to determine what percentageof relief is gained. The patient is instructed [...] today with this patient visit. This includes vapc-kl-snjm time, review of chart records regarding conservative care history, spine- pertinent imaging, and communication/care coordination with referring provider, problem-specific history-taking and counseling/education regarding treatment options. cc: SELF Phone: N/A Fax: Results of consultation to be transmitted via electronic medical record for those providers who practice within [facility] or with access to [place] via MD Connect, or via letter. 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 This was completed 1 yearsago. The therapy provided a notable amount of [...] mouth three times daily as needed (dizziness). 90tablet 1 colestipol (COLESTID) 1 gram tablet Take 3 tablets by mouth once daily. 90 tablet 3 sucralfate (CARAFATE) 1 gram tablet Take 1 tablet by mouth twice daily. 120 tablet 3 fremanezumab-vfrm (AJOVY AUTOINJECTOR) 225 mg/1.5 mL auto-injector [...] injection (DEFINITY) INTRAVENOUS DIRECTED PRN Seth Pérez APRN.JEWELRY SALES REPRESENTATIVE sodium chloride 0.9 % (flush) 10 mL (BD POSIFLUSH) 10 mL INTRAVENOUS DIRECTED PRN Seth Pérez APRN.JEWELRY SALES REPRESENTATIVE bupivacaine 7.5 mg injection (SENSORCAINE) 3 mL OTHER As Directed Clinton Aguirre MD 7.5 mg at 11/30/19 1331 Allergies: Cristine Inhibitors, Advair Diskus [Fluticasone Propion-Salmeterol], Albuterol, Amitriptyline, Amoxicillin, Bactrim [Sulfamethoxazole-Trimethoprim], Caffeine, Codeine, Doxycycline Hyclate, Hydantoins, Levaquin [Levofloxacin], Pneumovax 23 [Pneumococcal 23-Santosh Ps Vaccine], Lgkwjib-Atv-Rvb Reductase Inhibitors, and Ultram [Tramadol Hcl] PAST [...] B/L bunion surgery - Dr. Solis - [facility] PAST SURGICAL HISTORY OF 02/02/2014 right TKA [...] 153/67, pulse 80, height 151.1 cm (4' 11.5), weight 72.1 kg (158 lb 14.4 oz), [...] L: 5/5 Triceps R: 5/5 L: 5/5 Supermarket Manager R: 5/5 L: 5/5 Interossei R: 5/5 [...] STUDIES: See discussion above documented in this encounterMarymount Hospital08-23-2022 Miscellaneous Notes* Telephone Encounter - Ramandeep Barry RN - 12/18/2021 11:12 AM EDT Patient calls and is [facility] Ramandeep Barry RN * Telephone Encounter - Keira Guzman RN - 12/17/2021 8:57 AM EDT Patient states her script for [place] 5/325 was sent to incorrect pharmacy on 12/14. Asking for scriptto be cancelled at [facility] and [facility] in [place] please. Please call patient once script sent to [facility], per request. Thank you. documented in this encounterMarymount Hospital08-19-2022 History of Present illness Narrative* Kenney Atkins MD - 12/14/2021 2:14 PM EDT Reason for Visit Patient presents with: Same Day Appointment: neck pain Kendal Taylor is a 81 year old female who presents here today for Above Complaints. Health Maintenance COVID-19 VACCINE(1) BP CONTROLLED (<130/80) DTAP,TDAP,TD(1 - Tdap) DEPRESSION SCREENING ADVANCE DIRECTIVE DISCUSSION HPI Has a pinched nerves in the back, is seeing Dr. Shin in [place]. She would like some narco, she saw Dr. Burr who found the pinched nerve and is on robaxin. Patient would like medication to go to [facility] in [place]. No problem-specific Assessment & Plan notes found [...] B/L bunion surgery - Dr. Solis - [facility] PAST SURGICAL HISTORY OF 02/02/2014 right TKA [...] F) Resp 12 Ht 149.9 cm (4' 11) Wt 69.9 kg (154 lb) SpO2 98% [...] controlled Kenney Atkins MD documented in this encounterMarymount Hospital08-09-2022 Miscellaneous Notes* Telephone Encounter - Rafaela Montano - 12/04/2021 2:01 PM EDT Spoke with patient and advised per Dr.Feldman andres to see local specialist or [facility] redevelopment specialist. Currently she is doing better and will not be scheduling either. * Telephone Encounter - Rafaela Montano - 11/30/2021 11:58 AM EDT Spoke with patient. She went to [facility] ED for c/o pain into the left shoulder and arm. Pain in the neck shooting straight up her head and down her right leg. Left arm and right leg became heavy feeling She was told by the ED that the issues is cervical disc related and to see a spine physician. She was give [place]. Cervical spine CT only showed : Mild cervical spondylosis with no acute osseous abnormality. I advised we will need the disc with actual images. She was referred to a redevelopment specialist there - Dr.Jeffery Hines She requests your recommendations. Aware will be out until Friday * Telephone Encounter - Shandra Morfin Pss - 11/30/2021 9:37 AM EDT Kendal Taylor is calling Terrance Mccain MD [...] calling: self Call patient at: at home [phone] (home) [phone] (cell) Was an appointment scheduled: No Closing statement: Results or non-symptom based questions: Thank you for calling [facility], your call will be returned within the next business day. Shandra Martínez documented in this encounterMarymount Hospital08-05-2022 Miscellaneous Notes* Telephone Encounter - Riya Rodriguez MA - 11/30/2021 2:14 PM EDT ABRAM:11/01/2021 NOV: Visit date not found Urine Panel: No results found for: UQCANN, UQBNZL, XSH5UJR, UQAMPH, UQMAMP, UQBUPRE, UQNORBUP, UQMTHD, UQEDDP, UQTRAM, UQDTRM, UQFNTL, UQNFTL, UQCODE, UQMORP, UQDCDN, UQHCOD, UQOXYC, UQHMOR, UQOXYM, UQCREA, UQPH,UQSPGR, UQOXID, UQSPQ Orders Pended Riya Rodriguez MA * Telephone Encounter - Shandra Morfin Pss - 11/30/2021 9:39 AM EDT Patient has been identified by name and [...] home Shandra Morfin Pss documented in this encounterMarymount Hospital07-27-2022 Miscellaneous Notes* Telephone Encounter - Lida Noel APRN.CNP - 11/21/2021 9:25 AM EDT PDMP website checked and validated. All prescriptions have been APPROPRIATELY filled. No suspiciousactivity was identified. 11/21/2021 by Lida Noel APRN.CNP * Telephone Encounter - Kiah Kidd LPN - 11/20/2021 9:12 AM EDT patient is out of medication Patient has [...] you. Kiah Kidd LPN documented in this encounterMarymount Hospital07-19-2022 History of Present illness Narrative* Kenney Atkins MD - 11/13/2021 10:26 AM EDT Reason for Visit Patient presents with: Established [...] B/L bunion surgery - Dr. Solis - [facility] PAST SURGICAL HISTORY OF 02/02/2014 right TKA [...] F) Resp 12 Ht 149.9 cm (4' 11) Wt 70.8 kg (156 lb) SpO2 97% [...] education for prevention given Kenney Atkins MD * Kenney Atkins MD - 11/13/2021 10:23 AM EDT error documented in this encounterMarymount Hospital07-18-2022 Miscellaneous Notes* Telephone Encounter - Flower Baez LPN - 11/12/2021 1:24 PM EDT Called patient. Verified name and date of . Informed of results and of orders. Patient verbalizes understanding. Flower Baez LPN * Telephone Encounter - Jennifer Ledesma PA-C - 11/12/2021 12:41 PM EDT Please, notify patient the urine culture was Positive She should hold 50 mg Macrobid and start Cipro and can start it again the week after finishing Cipro Treatment e-scripted: Cipro 500 mg Patient had GI upset with Levaquin but hoping she can try it And will need a 2 week post-treatment urine culture ( orders are in) Thank you, Jennifer Ledesma, MARIALUISAS, MT, PAZachary * Telephone Encounter - Flower Baez LPN - 11/12/2021 8:15 AM EDT Patient called. Verified name and date of [...] the maintenance dose? Please review and advise. Sera PARTIDA documented in this encounterMarymount Hospital07-15-2022 History of Present illness Narrative* Jennifer Ledesma PA-C - 11/09/2021 9:26 AM EDT Images from the original note were not included. [facility] PATIENT INFO: Kendal Taylor CHIEF COMPLAINT: UTI [...] 0.5 tablets by mouth once daily. fremanezumab-vfrm (Contentment LtdOVY AUTOINJECTOR) 225 mg/1.5 mL auto-injector Inject 1.5 [...] resp. rate 14, height 149.9 cm (4' 11), weight 71.7 kg (158 lb), SpO2 97 %. GENERAL:WNL nutrition, no deformities, healthy appearing IMPRESSION/PLAN: > History of Atrophic Vaginitis > Topical Estrogen - Refilled > Urinary Incontinence > s/p Sling with Dr. Martinez in the past > Recurrent UTI > Macrobid 50 mg Daily for 3 months Follow up 3 month with JOHANNA Lacey MT, MECHE for medication change JOHANNA Combs, MAL, MECHE * Flower Baez LPN - 11/09/2021 9:08 AM EDT CC Post Void Residual HPI: Kendal Taylor [...] Plan: Appointment with Jennifer. documented in this encounterMarymount Hospital07-07-2022 Instructions* Patient Instructions* Terrance Mccain MD - 11/01/2021 11:43 AM EDT Continue Ajovy monthly Continue Maxalt and Robaxin as needed Follow up in 6 months documented in this encounterMarymount Hospital07-07-2022 History of Present illness Narrative* Terrance Mccain MD - 11/01/2021 11:37 AM EDT [facility] Follow up visit History of Present Illness: [...] to Ajovy for financial reasons and Ajovy worksjust as well. She also notes that with [...] Reassured her and encouraged her to let meknow if she experiences further cognitive issues. 3) Recurrent UTIs-Seen by ID. Encouraged continued follow-up with PCP. F/u in 6 months. All questions answered. The duration of this appointment visit was 30 minutes of ixzc-xq-sahn time with the patient. At least 50% of this time was spent in counseling, explanation of diagnosis, planning of further management, and coordination of care. Portions of this note have been composed using voice recognition and may contain pediatric speech therapist errors Terrance Mccain M.D. [facility] Associate Staff Department of Neurology Referring provider: Terrance Mccain [address] [place] [place] [address] Primary care provider: Kenney Atkins [address] [place] [phone] documented in this encounterMarymount Hospital06-22-2022 Miscellaneous Notes* Telephone Encounter - Janine Bo - 10/17/2021 2:26 PM EDT Pt called back and states she is going to go to Urgent Care for treatment. Janine Bo * Telephone Encounter - Maia Desai Ma - 10/17/2021 1:41 PM EDT Patient calling and states she is having symptoms of a UTI and urinary incontinence. Patient is asking is she can have something for the UTI? Requesting RX be called into [facility]. documented in this encounterMarymount Hospital05-19-2022 Miscellaneous Notes* Telephone Encounter - Lilian Lopez - 09/13/2021 3:21 PM EDT Pt is not seen in our office. This med was filled by neurology Will route to Neurologist * Telephone Encounter - Clotilde Hong - 09/13/2021 3:14 PM EDT Patient has been identified by name and [...] to the pharmacy. Please call patient at: [phone] IF this is not going to be filled please call patient Clotilde Hong documented in this encounterMarymount Hospital05-11-2022 Miscellaneous Notes* Telephone Encounter - Nika Osorio - 09/05/2021 7:12 PM EDT Sent Plexhart message to Kendal informing her we need to reschedule her appointment on 11/29/[address] Mccain because he will not be seeing patients this day. 1st attempt to reschedule. Nika Osorio documented in this encounterMarymount Hospital01-12-2022 Miscellaneous Notes* Telephone Encounter - Kenney Atkins MD - 05/09/2021 8:57 PM EST I would prefer a virtual visit * Telephone Encounter - Lilliana Palacios RN - 05/09/2021 8:51 AM EST Patient calls in to request an appointment with provider for continued sinus congestion and cough. Patient reports she believes it is now a sinus infection. Appointment scheduled for 05/11/2021. Patient also requesting paper copy of work excuse. 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 Patient is aware. Lilliana Palacios RN * Telephone Encounter - Kenney Atkins MD - 05/08/2021 5:38 PM EST I sent a mychart ;letter of sick leave * Telephone Encounter - Ashlee Dennis RN - 05/08/2021 2:04 PM EST Pt called in and reports that she came in to and had a Covid test that came back negative. States that she does not believe that she can work the rest of the week and would like provider to write her a note to have the rest of the week off of work. Reports that she has a cough and is bringing upgreen/yellow mucus, nasal drainage, and is weak (dosen't think she would be able to be on her feet all 6 hours at work). UC wouldn't give her an antibiotic for this because they told her it was viraland told her to take OTC medications. Pt is on Macrobid for a UTI at this time. Please call and advise. documented in this encounterMarymount Hospital12-03-2016 History of Past illness Narrative* Problem Noted Date Resolved Date Primary osteoarthritis of left knee 03/30/2016 08/01/2017 Neck pain 07/25/2014 07/18/2020 Diarrhea 01/09/2011 04/14/2013 Abdominal pain, unspecified site 10/11/2005 04/14/2013 RECURRENT UTI'S 08/12/2005 01/31/2016 documented as of this encounter (statuses as of 09/05/2021) [facility] illness Narrative* Problem Noted Date Resolved Date Primary osteoarthritis of left knee 03/30/2016 08/01/2017 Neck pain 07/25/2014 07/18/2020 Diarrhea 01/09/2011 04/14/2013 Abdominal pain, unspecified site 10/11/2005 04/14/2013 RECURRENT UTI'S 08/12/2005 01/31/2016 documented as of this encounter (statuses as of 09/13/2021) [facility] illness Narrative* Problem Noted Date Resolved Date Primary osteoarthritis of left knee 03/30/2016 08/01/2017 Neck pain 07/25/2014 07/18/2020 Diarrhea 01/09/2011 04/14/2013 Abdominal pain, unspecified site 10/11/2005 04/14/2013 RECURRENT UTI'S 08/12/2005 01/31/2016 documented as of this encounter (statuses as of 10/17/2021) [facility] Narrative* Problem Noted Date Resolved Date Primary osteoarthritis of left knee 03/30/2016 08/01/2017 Neck pain 07/25/2014 07/18/2020 Diarrhea 01/09/2011 04/14/2013 Abdominal pain, unspecified site 10/11/2005 04/14/2013 RECURRENT UTI'S 08/12/2005 01/31/2016 documented as of this encounter (statuses as of 11/01/2021) [facility] Narrative* Problem Noted Date Resolved Date Primary osteoarthritis of left knee 03/30/2016 08/01/2017 Neck pain 07/25/2014 07/18/2020 Diarrhea 01/09/2011 04/14/2013 Abdominal pain, unspecified site 10/11/2005 04/14/2013 RECURRENT UTI'S 08/12/2005 01/31/2016 documented as of this encounter (statuses as of 11/09/2021) [facility] Narrative* Problem Noted Date Resolved Date Primary osteoarthritis of left knee 03/30/2016 08/01/2017 Neck pain 07/25/2014 07/18/2020 Diarrhea 01/09/2011 04/14/2013 Abdominal pain, unspecified site 10/11/2005 04/14/2013 RECURRENT UTI'S 08/12/2005 01/31/2016 documented as of this encounter (statuses as of 11/09/2021) [facility] Narrative* Problem Noted Date Resolved Date Primary osteoarthritis of left knee 03/30/2016 08/01/2017 Neck pain 07/25/2014 07/18/2020 Diarrhea 01/09/2011 04/14/2013 Abdominal pain, unspecified site 10/11/2005 04/14/2013 RECURRENT UTI'S 08/12/2005 01/31/2016 documented as of this encounter (statuses as of 11/12/2021) [facility] History of Past illness Narrative* Problem Noted Date Resolved Date Primary osteoarthritis of left knee 03/30/2016 08/01/2017 Neck pain 07/25/2014 07/18/2020 Diarrhea 01/09/2011 04/14/2013 Abdominal pain, unspecified site 10/11/2005 04/14/2013 RECURRENT UTI'S 08/12/2005 01/31/2016 documented as of this encounter (statuses as of 11/13/2021) [facility] History of Past illness Narrative* Problem Noted Date Resolved Date Primary osteoarthritis of left knee 03/30/2016 08/01/2017 Neck pain 07/25/2014 07/18/2020 Diarrhea 01/09/2011 04/14/2013 Abdominal pain, unspecified site 10/11/2005 04/14/2013 RECURRENT UTI'S 08/12/2005 01/31/2016 documented as of this encounter (statuses as of 11/21/2021) [facility] History of Past illness Narrative* Problem Noted Date Resolved Date Primary osteoarthritis of left knee 03/30/2016 08/01/2017 Neck pain 07/25/2014 07/18/2020 Diarrhea 01/09/2011 04/14/2013 Abdominal pain, unspecified site 10/11/2005 04/14/2013 RECURRENT UTI'S 08/12/2005 01/31/2016 documented as of this encounter (statuses as of 11/30/2021) [facility] History of Past illness Narrative* Problem Noted Date Resolved Date Primary osteoarthritis of left knee 03/30/2016 08/01/2017 Neck pain 07/25/2014 07/18/2020 Diarrhea 01/09/2011 04/14/2013 Abdominal pain, unspecified site 10/11/2005 04/14/2013 RECURRENT UTI'S 08/12/2005 01/31/2016 documented as of this encounter (statuses as of 12/04/2021) [facility] History of Past illness Narrative* Problem Noted Date Resolved Date Primary osteoarthritis of left knee 03/30/2016 08/01/2017 Neck pain 07/25/2014 07/18/2020 Diarrhea 01/09/2011 04/14/2013 Abdominal pain, unspecified site 10/11/2005 04/14/2013 RECURRENT UTI'S 08/12/2005 01/31/2016 documented as of this encounter (statuses as of 12/14/2021) [facility] History of Past illness Narrative* Problem Noted Date Resolved Date Primary osteoarthritis of left knee 03/30/2016 08/01/2017 Neck pain 07/25/2014 07/18/2020 Diarrhea 01/09/2011 04/14/2013 Abdominal pain, unspecified site 10/11/2005 04/14/2013 RECURRENT UTI'S 08/12/2005 01/31/2016 documented as of this encounter (statuses as of 12/18/2021) [facility] History of Past illness Narrative* Problem Noted Date Resolved Date Primary osteoarthritis of left knee 03/30/2016 08/01/2017 Neck pain 07/25/2014 07/18/2020 Diarrhea 01/09/2011 04/14/2013 Abdominal pain, unspecified site 10/11/2005 04/14/2013 RECURRENT UTI'S 08/12/2005 01/31/2016 documented as of this encounter (statuses as of 01/10/2022) [facility] History of Past illness Narrative* Problem Noted Date Resolved Date Primary osteoarthritis of left knee 03/30/2016 08/01/2017 Neck pain 07/25/2014 07/18/2020 Diarrhea 01/09/2011 04/14/2013 Abdominal pain, unspecified site 10/11/2005 04/14/2013 RECURRENT UTI'S 08/12/2005 01/31/2016 documented as of this encounter (statuses as of 01/17/2022) [facility] History of Past illness Narrative* Problem Noted Date Resolved Date Primary osteoarthritis of left knee 03/30/2016 08/01/2017 Neck pain 07/25/2014 07/18/2020 Diarrhea 01/09/2011 04/14/2013 Abdominal pain, unspecified site 10/11/2005 04/14/2013 RECURRENT UTI'S 08/12/2005 01/31/2016 documented as of this encounter (statuses as of 01/25/2022) [facility] History of Past illness Narrative* Problem Noted Date Resolved Date Primary osteoarthritis of left knee 03/30/2016 08/01/2017 Neck pain 07/25/2014 07/18/2020 Diarrhea 01/09/2011 04/14/2013 Abdominal pain, unspecified site 10/11/2005 04/14/2013 RECURRENT UTI'S 08/12/2005 01/31/2016 documented as of this encounter (statuses as of 02/08/2022) [facility] History of Past illness Narrative* Problem Noted Date Resolved Date Primary osteoarthritis of left knee 03/30/2016 08/01/2017 Neck pain 07/25/2014 07/18/2020 Diarrhea 01/09/2011 04/14/2013 Abdominal pain, unspecified site 10/11/2005 04/14/2013 RECURRENT UTI'S 08/12/2005 01/31/2016 documented as of this encounter (statuses as of 02/11/2022) [facility] History of Past illness Narrative* Problem Noted Date Resolved Date Primary osteoarthritis of left knee 03/30/2016 08/01/2017 Neck pain 07/25/2014 07/18/2020 Diarrhea 01/09/2011 04/14/2013 Abdominal pain, unspecified site 10/11/2005 04/14/2013 RECURRENT UTI'S 08/12/2005 01/31/2016 documented as of this encounter (statuses as of 02/11/2022) [facility] History of Past illness Narrative* Problem Noted Date Resolved Date Primary osteoarthritis of left knee 03/30/2016 08/01/2017 Neck pain 07/25/2014 07/18/2020 Diarrhea 01/09/2011 04/14/2013 Abdominal pain, unspecified site 10/11/2005 04/14/2013 RECURRENT UTI'S 08/12/2005 01/31/2016 documented as of this encounter (statuses as of 02/12/2022) [facility] History of Past illness Narrative* Problem Noted Date Resolved Date Primary osteoarthritis of left knee 03/30/2016 08/01/2017 Neck pain 07/25/2014 07/18/2020 Diarrhea 01/09/2011 04/14/2013 Abdominal pain, unspecified site 10/11/2005 04/14/2013 RECURRENT UTI'S 08/12/2005 01/31/2016 documented as of this encounter (statuses as of 04/05/2022) [facility] History of Past illness Narrative* Problem Noted Date Resolved Date Primary osteoarthritis of left knee 03/30/2016 08/01/2017 Neck pain 07/25/2014 07/18/2020 Diarrhea 01/09/2011 04/14/2013 Abdominal pain, unspecified site 10/11/2005 04/14/2013 RECURRENT UTI'S 08/12/2005 01/31/2016 documented as of this encounter (statuses as of 04/21/2022) [facility] History of Past illness Narrative* Problem Noted Date Resolved Date Primary osteoarthritis of left knee 03/30/2016 08/01/2017 Neck pain 07/25/2014 07/18/2020 Diarrhea 01/09/2011 04/14/2013 Abdominal pain, unspecified site 10/11/2005 04/14/2013 RECURRENT UTI'S 08/12/2005 01/31/2016 documented as of this encounter (statuses as of 04/28/2022) [facility] History of Past illness Narrative* Problem Noted Date Resolved Date Primary osteoarthritis of left knee 03/30/2016 08/01/2017 Neck pain 07/25/2014 07/18/2020 Diarrhea 01/09/2011 04/14/2013 Abdominal pain, unspecified site 10/11/2005 04/14/2013 RECURRENT UTI'S 08/12/2005 01/31/2016 documented as of this encounter (statuses as of 04/30/2022) [facility] History of Past illness Narrative* Problem Noted Date Resolved Date Primary osteoarthritis of left knee 03/30/2016 08/01/2017 Neck pain 07/25/2014 07/18/2020 Diarrhea 01/09/2011 04/14/2013 Abdominal pain, unspecified site 10/11/2005 04/14/2013 RECURRENT UTI'S 08/12/2005 01/31/2016 documented as of this encounter (statuses as of 05/02/2022) [facility] History of Past illness Narrative* Problem Noted Date Resolved Date Primary osteoarthritis of left knee 03/30/2016 08/01/2017 Neck pain 07/25/2014 07/18/2020 Diarrhea 01/09/2011 04/14/2013 Abdominal pain, unspecified site 10/11/2005 04/14/2013 RECURRENT UTI'S 08/12/2005 01/31/2016 documented as of this encounter (statuses as of 05/04/2022) [facility] History of Past illness Narrative* Problem Noted Date Resolved Date Primary osteoarthritis of left knee 03/30/2016 08/01/2017 Neck pain 07/25/2014 07/18/2020 Diarrhea 01/09/2011 04/14/2013 Abdominal pain, unspecified site 10/11/2005 04/14/2013 RECURRENT UTI'S 08/12/2005 01/31/2016 documented as of this encounter (statuses as of 05/14/2022) [facility] History of Past illness Narrative* Problem Noted Date Resolved Date Primary osteoarthritis of left knee 03/30/2016 08/01/2017 Neck pain 07/25/2014 07/18/2020 Diarrhea 01/09/2011 04/14/2013 Abdominal pain, unspecified site 10/11/2005 04/14/2013 RECURRENT UTI'S 08/12/2005 01/31/2016 documented as of this encounter (statuses as of 05/15/2022) [facility] History of Past illness Narrative* Problem Noted Date Resolved Date Primary osteoarthritis of left knee 03/30/2016 08/01/2017 Neck pain 07/25/2014 07/18/2020 Diarrhea 01/09/2011 04/14/2013 Abdominal pain, unspecified site 10/11/2005 04/14/2013 RECURRENT UTI'S 08/12/2005 01/31/2016 documented as of this encounter (statuses as of 05/17/2022) [facility] History of Past illness Narrative* Problem Noted Date Resolved Date Primary osteoarthritis of left knee 03/30/2016 08/01/2017 Neck pain 07/25/2014 07/18/2020 Diarrhea 01/09/2011 04/14/2013 Abdominal pain, unspecified site 10/11/2005 04/14/2013 RECURRENT UTI'S 08/12/2005 01/31/2016 documented as of this encounter (statuses as of 06/07/2022) [facility] History of Past illness Narrative* Problem Noted Date Resolved Date Primary osteoarthritis of left knee 03/30/2016 08/01/2017 Neck pain 07/25/2014 07/18/2020 Diarrhea 01/09/2011 04/14/2013 Abdominal pain, unspecified site 10/11/2005 04/14/2013 RECURRENT UTI'S 08/12/2005 01/31/2016 documented as of this encounter (statuses as of 07/02/2022) [facility] History of Past illness Narrative* Problem Noted Date Resolved Date Primary osteoarthritis of left knee 03/30/2016 08/01/2017 Neck pain 07/25/2014 07/18/2020 Diarrhea 01/09/2011 04/14/2013 Abdominal pain, unspecified site 10/11/2005 04/14/2013 RECURRENT UTI'S 08/12/2005 01/31/2016 documented as of this encounter (statuses as of 07/09/2022) [facility] History of Past illness Narrative* Problem Noted Date Resolved Date Primary osteoarthritis of left knee 03/30/2016 08/01/2017 Neck pain 07/25/2014 07/18/2020 Diarrhea 01/09/2011 04/14/2013 Abdominal pain, unspecified site 10/11/2005 04/14/2013 RECURRENT UTI'S 08/12/2005 01/31/2016 documented as of this encounter (statuses as of 07/23/2022) [facility] History of Past illness Narrative* Problem Noted Date Resolved Date Primary osteoarthritis of left knee 03/30/2016 08/01/2017 Neck pain 07/25/2014 07/18/2020 Diarrhea 01/09/2011 04/14/2013 Abdominal pain, unspecified site 10/11/2005 04/14/2013 RECURRENT UTI'S 08/12/2005 01/31/2016 documented as of this encounter (statuses as of 11/01/2022) [facility] History of Past illness Narrative* Problem Noted Date Diagnosed Date Resolved Date Primary osteoarthritis of left knee 03/30/2016 08/01/2017 Neck pain 07/25/2014 07/18/2020 Diarrhea 01/09/2011 04/14/2013 Abdominal pain, unspecified site 10/11/2005 04/14/2013 RECURRENT UTI'S 08/12/2005 01/31/2016 documented as of this encounter (statuses as of 11/12/2022) [facility] History of Past illness Narrative* Problem Noted Date Diagnosed Date Resolved Date Primary osteoarthritis of left knee 03/30/2016 08/01/2017 Neck pain 07/25/2014 07/18/2020 Diarrhea 01/09/2011 04/14/2013 Abdominal pain, unspecified site 10/11/2005 04/14/2013 RECURRENT UTI'S 08/12/2005 01/31/2016 documented as of this encounter (statuses as of 12/07/2022) [facility] History of Past illness Narrative* Problem Noted Date Diagnosed Date Resolved Date Primary osteoarthritis of left knee 03/30/2016 08/01/2017 Neck pain 07/25/2014 07/18/2020 Diarrhea 01/09/2011 04/14/2013 Abdominal pain, unspecified site 10/11/2005 04/14/2013 RECURRENT UTI'S 08/12/2005 01/31/2016 documented as of this encounter (statuses as of 12/27/2022) [facility] History of Past illness Narrative* Problem Noted Date Diagnosed Date Resolved Date Primary osteoarthritis of left knee 03/30/2016 08/01/2017 Neck pain 07/25/2014 07/18/2020 Diarrhea 01/09/2011 04/14/2013 Abdominal pain, unspecified site 10/11/2005 04/14/2013 RECURRENT UTI'S 08/12/2005 01/31/2016 documented as of this encounter (statuses as of 01/01/2023) [facility] History of Past illness Narrative* Problem Noted Date Diagnosed Date Resolved Date Primary osteoarthritis of left knee 03/30/2016 08/01/2017 Neck pain 07/25/2014 07/18/2020 Diarrhea 01/09/2011 04/14/2013 Abdominal pain, unspecified site 10/11/2005 04/14/2013 RECURRENT UTI'S 08/12/2005 01/31/2016 documented as of this encounter (statuses as of 01/08/2023) [facility] History of Past illness Narrative* Problem Noted Date Diagnosed Date Resolved Date Primary osteoarthritis of left knee 03/30/2016 08/01/2017 Neck pain 07/25/2014 07/18/2020 Diarrhea 01/09/2011 04/14/2013 Abdominal pain, unspecified site 10/11/2005 04/14/2013 RECURRENT UTI'S 08/12/2005 01/31/2016 documented as of this encounter (statuses as of 01/10/2023) [facility] History of Past illness Narrative* Problem Noted Date Diagnosed Date Resolved Date Primary osteoarthritis of left knee 03/30/2016 08/01/2017 Neck pain 07/25/2014 07/18/2020 Diarrhea 01/09/2011 04/14/2013 Abdominal pain, unspecified site 10/11/2005 04/14/2013 RECURRENT UTI'S 08/12/2005 01/31/2016 documented as of this encounter (statuses as of 01/11/2023) [facility] History of Past illness Narrative* Problem Noted Date Diagnosed Date Resolved Date Primary osteoarthritis of left knee 03/30/2016 08/01/2017 Neck pain 07/25/2014 07/18/2020 Diarrhea 01/09/2011 04/14/2013 Abdominal pain, unspecified site 10/11/2005 04/14/2013 RECURRENT UTI'S 08/12/2005 01/31/2016 documented as of this encounter (statuses as of 01/14/2023) [facility] History of Past illness Narrative* Problem Noted Date Diagnosed Date Resolved Date Primary osteoarthritis of left knee 03/30/2016 08/01/2017 Neck pain 07/25/2014 07/18/2020 Diarrhea 01/09/2011 04/14/2013 Abdominal pain, unspecified site 10/11/2005 04/14/2013 RECURRENT UTI'S 08/12/2005 01/31/2016 documented as of this encounter (statuses as of 03/15/2023) [facility] History of Past illness Narrative* Problem Noted Date Diagnosed Date Resolved Date Primary osteoarthritis of left knee 03/30/2016 08/01/2017 Neck pain 07/25/2014 07/18/2020 Diarrhea 01/09/2011 04/14/2013 Abdominal pain, unspecified site 10/11/2005 04/14/2013 RECURRENT UTI'S 08/12/2005 01/31/2016 documented as of this encounter (statuses as of 06/26/2023) [facility]There may be information available, but it has not been provided by the sender.[facility] Work Phone: Evaluation note* Diagnosis Migraine without aura and without status migrainosus, not intractable Migraine without aura, without mention of intractable migraine without mention of status migrainosus Neck pain Cervicalgia documented [facility] this encounter [facility]* Diagnosis Migraine without aura and without status migrainosus, not intractable- Primary Migraine without aura, without mention of intractable migraine without mention of status migrainosus [facility]* Diagnosis Atrophic vaginitis- Primary Postmenopausal atrophic vaginitis Recurrent UTI Urinary tract infection, site not specified Dysuria [facility]* Diagnosis Dysuria [facility]* Diagnosis H. pylori infection- Primary Helicobacter pylori (H. pylori) Chronic diarrhea Diarrhea Essential hypertension Unspecified essential hypertension Hypokalemia Hypopotassemia Recurrent UTI Urinary tract infection, site not specified documented [facility] encounter [facility]* Diagnosis Chronic diarrhea Diarrhea documented [facility] noteNo assessment information availableWCleveland Clinic Foundation Work Phone: Evaluation note* Diagnosis Migraine without aura and without status migrainosus, not intractable Migraine without aura, without mention of intractable migraine without mention of status migrainosus Neck pain Cervicalgia [facility] encounter [facility]* Diagnosis Neck pain- Primary Cervicalgia Primary hypertension Unspecified essential hypertension [facility] Diagnosis Neck pain Cervicalgia [facility] Diagnosis Cervical spondylosis without myelopathy- Primary Arthropathy of cervical facet joint Cervical spondylosis without myelopathy [facility]* Diagnosis Primary osteoarthritis of both knees- Primary Primary localized osteoarthrosis, lower leg Cervical spondylosis without myelopathy [facility]* Diagnosis Cervical spondylosis without myelopathy- Primary [facility]* Diagnosis Acute non-recurrent maxillary sinusitis- Primary Need for influenza vaccination Need for prophylactic vaccination and inoculation against influenza Mixed hyperlipidemia Encounter for screening for diabetes mellitus Screening for diabetes mellitus Cervical spondylosis without myelopathy Cervical spondylosis without myelopathy [facility]* Diagnosis Migraine without aura and without status migrainosus, not intractable Migraine without aura, without mention of intractable migraine without mention of status migrainosus Neck pain Cervicalgia [facility]* Diagnosis URI, acute- Primary Acute upper respiratory infections of unspecified site Bacterial sinusitis Unspecified sinusitis (chronic) documented [facility]* Diagnosis Viral illness- Primary Unspecified viral infection, in conditions classified elsewhere and of unspecified site Wheezing documented [facility] encounter [facility]* Diagnosis Functional bowel disorder Unspecified functional disorder of intestine Mixed hyperlipidemia documented [facility]* Diagnosis Vulvar lump- Primary Other specified symptom associated with female genital organs [facility]* Diagnosis Uncontrolled hypertension- Primary Unspecified essential hypertension Other fatigue Vitamin D deficiency Unspecified vitamin D deficiency Sinusitis, unspecified chronicity, unspecified location Recurrent UTI Urinary tract infection, site not specified Mixed hyperlipidemia Vitamin B12 deficiency Other B-complex deficiencies [facility] Diagnosis Migraine without aura and without status migrainosus, not intractable Migraine without aura, without mention of intractable migraine without mention of status migrainosus Neck pain Cervicalgia [facility] Diagnosis Recurrent infections- Primary Unspecified infectious and parasitic diseases Primary hypertension Unspecified essential hypertension Mixed hyperlipidemia VARUN (obstructive sleep apnea) Obstructive sleep apnea (adult) (pediatric) documented [facility] this encounter [facility]* Diagnosis Onset Date Resolution Status Plantar warts acute Skin rash acute Encounter to establish care [facility] Work Phone: Evaluation note* Diagnosis Migraine without aura and without status migrainosus, not intractable- Primary Migraine without aura, without mention of intractable migraine without mention of status migrainosus Neck pain Cervicalgia [facility]* Diagnosis Onset Date Resolution Status Plantar warts acute Skin rash acute Encounter to establish care noneactive Chronic diarrhea chronic [facility] Work Phone: Evaluation note* Diagnosis Procedure not carried out- Primary Procedure not carried out for other reasons documented [facility] this encounter [facility]* Diagnosis Urinary frequency- Primary documented [facility]* Diagnosis Acute non-recurrent pansinusitis- Primary [facility]* Diagnosis Onset Date Resolution Status Acute diverticulitis of intestine acute History of diverticulosis ac [place] LLQ abdominal pain acute [facility] Work Phone: Evaluation note* Diagnosis Onset Date Resolution Status History of diverticulosis ac [place] LLQ abdominal pain acute Dyspnea on exertion acute Fatigue acute [facility] Work Phone: Evaluation note* Diagnosis Onset Date Resolution Status History of diverticulosis ac [place] LLQ abdominal pain acute Dyspnea on exertion acute Fatigue acute UTI (urinary tract infection) acute [facility] Work Phone: Evaluation note* Diagnosis Migraine without aura and without status migrainosus, not intractable- Primary Migraine without aura, without mention of intractable migraine without mention of status migrainosus Neck pain Cervicalgia [facility]* Diagnosis Primary hypertension- Primary Unspecified essential hypertension Mixed hyperlipidemia Exertional dyspnea Other dyspnea and respiratory abnormality Hypokalemia Hypopotassemia Venous stasis Unspecified venous (peripheral) insufficiency [facility]* Diagnosis Medicare annual wellness visit, initial- Primary Routine general medical examination at a [facility] care facility Chronic tension-type headache, not intractable Chronic tension type headache Chronic diarrhea Diarrhea Irritable bowel syndrome with diarrhea Irritable bowel syndrome Essential hypertension Unspecified essential hypertension Mixed hyperlipidemia Primary hypertension Unspecified essential hypertension Hypokalemia Hypopotassemia Mixed hyperlipidemia [facility]* Diagnosis Medicare annual wellness visit, initial- Primary Routine general medical examination at a [facility] care facility Chronic tension-type headache, not intractable Chronic tension type headache Chronic diarrhea Diarrhea Irritable bowel syndrome with diarrhea Irritable bowel syndrome Essential hypertension Unspecified essential hypertension Mixed hyperlipidemia Primary hypertension Unspecified essential hypertension Mixed hyperlipidemia Hypokalemia Hypopotassemia [facility] annual wellness visit, initial- Primary Routine general medical examination at a [facility] facility Chronic tension-type headache, not intractable Chronic tension type headache Chronic diarrhea Diarrhea Irritable bowel syndrome with diarrhea Irritable bowel syndrome Essential hypertension Unspecified essential hypertension Mixed hyperlipidemia Primary hypertension Unspecified essential hypertension Mixed hyperlipidemia Hypokalemia Hypopotassemia [facility] Medicare annual wellness visit, initial- Primary Routine general medical examination at a [facility] facility Chronic tension-type headache, not intractable Chronic tension type headache Chronic diarrhea Diarrhea Irritable bowel syndrome with diarrhea Irritable bowel syndrome Essential hypertension Unspecified essential hypertension Mixed hyperlipidemia Fatigue, unspecified type Dyspnea on exertion Other dyspnea and respiratory abnormality [facility] Medicare annual wellness visit, initial- Primary Routine general medical examination at a [facility] facility Chronic tension-type headache, not intractable Chronic tension type headache Chronic diarrhea Diarrhea Irritable bowel syndrome with diarrhea Irritable bowel syndrome Essential hypertension Unspecified essential hypertension Mixed hyperlipidemia Primary hypertension- Primary Unspecified essential hypertension Exertional dyspnea Other dyspnea and respiratory abnormality Mixed hyperlipidemia Venous stasis Unspecified venous (peripheral) insufficiency Obesity, Class I, BMI 30-34.9 Obesity, unspecified [facility] Diagnosis Medicare annual wellness visit, initial- Primary Routine general medical examination at a [facility] care facility Chronic tension-type headache, not intractable Chronic tension type headache Chronic diarrhea Diarrhea Irritable bowel syndrome with diarrhea Irritable bowel syndrome Essential hypertension Unspecified essential hypertension Mixed hyperlipidemia Hypokalemia- Primary Hypopotassemia [facility] Diagnosis Medicare annual wellness visit, initial- Primary Routine general medical examination at a [facility] facility Chronic tension-type headache, not intractable Chronic tension type headache Chronic diarrhea Diarrhea Irritable bowel syndrome with diarrhea Irritable bowel syndrome Essential hypertension Unspecified essential hypertension Mixed hyperlipidemia Migraine without aura and without status migrainosus, not intractable Migraine without aura, without mention of intractable migraine without mention of status migrainosus Neck pain Cervicalgia [facility] Diagnosis Medicare annual wellness visit, initial- Primary Routine general medical examination at a [facility] care [facility] Chronic tension-type headache, not intractable Chronic tension type headache Chronic diarrhea Diarrhea Irritable bowel syndrome with diarrhea Irritable bowel syndrome Essential hypertension Unspecified essential hypertension Mixed hyperlipidemia Closed avulsion fracture of left ankle, initial encounter- Primary [facility] Diagnosis Medicare annual wellness visit, initial- Primary Routine general medical examination at a [facility] Chronic tension-type headache, not intractable Chronic tension type headache Chronic diarrhea Diarrhea Irritable bowel syndrome with diarrhea Irritable bowel syndrome Essential hypertension Unspecified essential hypertension Mixed hyperlipidemia Closed avulsion fracture of left ankle, initial encounter- Primary [facility]* Diagnosis Medicare annual wellness visit, initial- Primary Routine general medical examination at a [facility] facility Chronic tension-type headache, not intractable Chronic tension type headache Chronic diarrhea Diarrhea Irritable bowel syndrome with diarrhea Irritable bowel syndrome Essential hypertension Unspecified essential hypertension Mixed hyperlipidemia Closed avulsion fracture of left ankle, initial encounter documented in this encounter [facility] note* Diagnosis Medicare annual wellness visit, initial- Primary Routine general medical examination at a [facility] Chronic tension-type headache, not intractable Chronic tension type headache Chronic diarrhea Diarrhea Irritable bowel syndrome with diarrhea Irritable bowel syndrome Essential hypertension Unspecified essential hypertension Mixed hyperlipidemia Left leg swelling- Primary Swelling of limb Acute left ankle pain [facility] Additional Instructions Use your walker and continue your Tylenol. Weightbearing as tolerated. Wear your boot, but you may remove it for sleeping and bathing. Follow-up with Dr. Swann with podiatry, call the office on morning for an appointment.[facility] Work Phone: Instructions* Instruction Description Start Date Patient advised to follow-up with Primary Care Physician for BMI management. [facility] Work Phone: Instructions* Instruction Description Start Date Patient advised to follow-up with Primary Care Physician for BMI management. [facility] Work Phone: Reason for referral (narrative)No reason for referral information availableWCleveland Clinic Foundation Work Phone: Reason for visit Narrative* Diagnostic Procedure Only (Routine) - Closed Specialty Diagnoses / Procedures Referred By Contac t Referred To Contact XR IMAGING Diagnoses Closed avulsion fracture of left ankle, initial encounter Procedures XR ANKLE GENERAL 3V AP/LAT/OBL LEFT RADEX ANKLE COMPLETE MINIMUM 3 VIEWS Peter Patton MD [address] [place] [address] Phone: tel: fax: [place] [address] Referral ID Status Reason Start Date Expiration Date V isits Requested Visits Authorized [id number] Closed Auto-Generate d Referral 08/31/2024 09/30/2025 1 1 [facility] Summary Purpose Family History No Family History Records Found Relationship Condition Age at Onset Recorded Date/T savanna mother Hypertension Unknown Arthritis Unknown Disorder of intestine Unknown Myocardial infarction 71 Age related osteoporosis Unknown father Diabetes mellitus Unknown Myocardial infarction 51 Advance Directives No Advanced Directives Records FoundDocuments on File Type Date Recorded Patient 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 Health Program 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 Expl anation Advance Directive(s) Advance Directive Response Recorded Date/ Time Living Will No November 26, 2021 4:11am Power of Block Breaker Operator No November 26 4:11am Advance Directive Response Recorded Date/ Time Living Will No November 11, 2022 8:49am Power of Block Breaker Operator No November 11 8:49am Advance Directive Response Recorded Date/ Time Name of Medical Power of Block Breaker Operator Linda Tong November 12, 2022 11:39am Living Will No November 12, 2022 11:39am Power of Block Breaker Operator Yes November 12 11:39am Advance Directive Response Recorded Date/ Time Living Will No June 04 4:49pm Power of Block Breaker Operator No June 04, 2023 4:49pm Advance Directive Response Recorded Date/ Time Living Will No June 04 5:49pm Power of Block Breaker Operator No June 04, 2023 5:49pm Advance Directive Response Recorded Date/ Time Living Will Yes August 10, 2024 4:09pm Do you have a Healthcare Power of Block Breaker Operator? Yes August 10, 2024 4:09pm Name of Medical Power of Block Breaker Operator Janneth Perry August 10, 2024 4:09pm Chief Complaint Chief Complaint Description Start Date right hand pain Preliminary chief co mplaint data, not yet signed by the author as of Chief Complaint Description Start Date right hand pain Preliminary chief co mplaint data, not yet signed by the author as of Chief Complaint and Reason for Visit Chief Complaint back pain Chief Complaint Amb Documentation Establish Care EORDER Reason for Visit Plantar warts Skin rash Encounter to establish care Chief Complaint Amb Documentation Establish Care EORDER COLONOSCOPY Reason for Visit Plantar warts Skin rash Encounter to establish care Chronic diarrhea Chief Complaint Amb Documentation Establish Care EORDER COLONOSCOPY LOWER EXTREMITY Reason for Visit Plantar warts Skin rash Encounter to establish care Chronic diarrhea Chief Complaint Depression abd pain Reason for Visit Acute diverticulitis of intestine History of diverticulosis LLQ abdominal pain Chief Complaint Depression abd pain 1 M FU Other forms of dyspnea Reason for Visit History of diverticu losis LLQ abdominal pain Dyspnea on exertion Fatigue Chief Complaint Depression abd pain 1 M FU Other forms of dyspnea DYSPNEA Urinary tract infection Reason for Visit History of diverticu losis LLQ abdominal pain Dyspnea on exertion Fatigue UTI (urinary tract infection) Chief Complaint Depression abd pain 1 M FU Other forms of dyspnea DYSPNEA Urinary tract infection Other forms of dyspnea Other forms of dyspnea Reason for Visit History of diverticu losis LLQ abdominal pain Dyspnea on exertion Fatigue UTI (urinary tract infection) Chief Complaint Admit Date SINUS COMPLAINT/CONCERN FOR UTI May 11, 2024 8:27am E-ORDER May 24, 2024 1 2:16pm INT LABS June 22, 2024 8:15am Chief Complaint Admit Date SINUS COMPLAINT/CONCERN FOR UTI May 11, 2024 8:27am E-ORDER May 24, 2024 1 2:16pm INT LABS June 22, 2024 8:15am FOOT August 10, 2024 2:3 4pm Chief Complaint Admit Date INT LABS June 22, 2024 8:15am FOOT August 10, 2024 2:3 4pm Annual/Physical September 16, 2024 9:12a m Reason for Visit Admit Date Degenerative disc disease September 16, 2024 9:12am High cholesterol September 16, 2024 9:12a m Osteoarthritis September 16, 2024 9:12a m Chronic GERD September 16, 2024 9:12a m Hypertension September 16, 2024 9:12a m Reason for Referral Specialty Diagnoses / Procedures Referred By Contac t Referred To Contact Diagnoses Cervical spondylosis without myelopathy Arthropathy of cervical facet joint Procedures CONSULT TO SPINE INTERVENTION Teresa Rodriguez PA-C [address] [place] [address] Referral ID Status Reason Start Date Expiration Date Visits Requested Visits Authorized [id number] Authorized PCP Requested Referral 01/10/2022 04/10/2022 3 3 Specialty Diagnoses / Procedures Referred By Contac t Referred To Contact Immunology Diagnoses Recurrent infections Procedures CONSULT TO IMMUNOLOGY OFFICE/OUTPATIENT [facility] 60-74 MINUTES Kenney Atkins MD [address] [place] [address] Referral ID Status Reason Start Date Expiration Date Visits Requested Visits Authorized [id number] Authorized PCP Requested Referral 07/23/2022 07/23/2023 1 1 Specialty Diagnoses / Procedures Referred By Contac t Referred To Contact Diagnoses Migraine without aura and without status migrainosus, not intractable [place] [address] [place] [address] Referral ID Status Reason Start Date Expiration Date V isits Requested Visits Authorized [id number] Authorized 1 1 Health Concerns Infection Onset Date Last Indicated Resolved Time COVID-19 Rule-Out 05/07/2021 05/07/2021 05/08/2021 5:41 AM EST Infection Onset Date Last Indicated Resolved Time COVID-19 Rule-Out 04/29/2022 04/29/2022 04/30/2022 12:50 AM EST Additional Source Comments INFORMATION SOURCE (unrecogn ized section and content) DATE CREATED AUTHOR 05/06/2020 [facility] DATE CREATED AUTHOR AUTHOR'S ORGANIZ ATION 05/20/2020 [facility] DATE CREATED AUTHOR AUTHOR'S ORGANIZ ATION 03/14/2022 [facility] DATE CREATED AUTHOR AUTHOR'S ORGANIZ ATION 03/27/2024 [facility] DATE CREATED AUTHOR AUTHOR'S ORGANIZ ATION 09/27/2024 [facility] DATE CREATED AUTHOR AUTHOR'S ORGANIZ ATION 10/14/2024 [facility] Reason for Visit (unrecogniz ed section and content) Reason For Visit Description New - 1st visit with practice Preliminary reason f or visit data, not yet signed by the author as of right hand pain Reason For Visit Description Start Date Follow-up [...] Refill Request 08/21/2022 Reason Comments Medication Request Reason Comments Migraine Reason Comments New Patient Dyspnea, htn, abn st ress test Reason Comments Medication Authorization Methocarbamol 7 50MG tablets Reason Onset Date Comments Refill Request 12/20/2023 Reason Onset Date Comments Refill Request 12/08/2023 Reason Onset Date Comments Refill Request 12/24/2023 Reason Comments CARD Follow Up 3 Month Primary hypertens ion Reason Onset Date Comments Refill Request 05/26/2024 Reason Comments Insurance Authorization Needed for aimov ig Reason Comments New Fracture Reason Comments Follow Up 4 weeks 5 days post fracture left ankle Fracture 4 weeks 5 days post fracture left ankle Source Comments (unrecognize d section and content) In the event this informatio n is protected by the Federal Confidentiality of Alcohol and Drug Abuse Patient Records regulations: The Federal rules restrict any use of the information to criminally investigate or prosecute any alcohol or drug abuse patient.[facility] the event this information is protected by the Federal Confidentiality of Alcohol and Drug Abuse Patient Records regulations: The Federal rules restrict any use of the information to criminally investigate or prosecute any alcohol or drug abuse patient.[facility] the event this information is protected by the Federal Confidentiality of Alcohol and Drug Abuse Patient Records regulations: The Federal rules restrict any use of the information to criminally investigate or prosecute any alcohol or drug abuse patient.[facility] the event this information is protected by the Federal Confidentiality of Alcohol and Drug Abuse Patient Records regulations: The Federal rules restrict any use of the information to criminally investigate or prosecute any alcohol or drug abuse patient.[facility] the event this information is protected by the Federal Confidentiality of Alcohol and Drug Abuse Patient Records regulations: The Federal rules restrict any use of the information to criminally investigate or prosecute any alcohol or drug abuse patient.[facility] the event this information is protected by the Federal Confidentiality of Alcohol and Drug Abuse Patient Records regulations: The Federal rules restrict any use of the information to criminally investigate or prosecute any alcohol or drug abuse patient.[facility] Hospital[facility] the event this information is protected by the Federal Confidentiality of Alcohol and Drug Abuse Patient Records regulations: The Federal rules restrict any use of the information to criminally investigate or prosecute any alcohol or drug abuse patient.[facility] the event this information is protected by the Federal Confidentiality of Alcohol and Drug Abuse Patient Records regulations: The Federal rules restrict any use of the information to criminally investigate or prosecute any alcohol or drug abuse patient.[facility] the event this information is protected by the Federal Confidentiality of Alcohol and Drug Abuse Patient Records regulations: The Federal rules restrict any use of the information to criminally investigate or prosecute any alcohol or drug abuse patient.[facility] the event this information is protected by the Federal Confidentiality of Alcohol and Drug Abuse Patient Records regulations: The Federal rules restrict any use of the information to criminally investigate or prosecute any alcohol or drug abuse patient.[facility] the event this information is protected by the Federal Confidentiality of Alcohol and Drug Abuse Patient Records regulations: The Federal rules restrict any use of the information to criminally investigate or prosecute any alcohol or drug abuse patient.[facility] the event this information is protected by the Federal Confidentiality of Alcohol and Drug Abuse Patient Records regulations: The Federal rules restrict any use of the information to criminally investigate or prosecute any alcohol or drug abuse patient.[facility] the event this information is protected by the Federal Confidentiality of Alcohol and Drug Abuse Patient Records regulations: The Federal rules restrict any use of the information to criminally investigate or prosecute any alcohol or drug abuse patient.[facility] the event this information is protected by the Federal Confidentiality of Alcohol and Drug Abuse Patient Records regulations: The Federal rules restrict any use of the information to criminally investigate or prosecute any alcohol or drug abuse patient.[facility] the event this information is protected by the Federal Confidentiality of Alcohol and Drug Abuse Patient Records regulations: The Federal rules restrict any use of the information to criminally investigate or prosecute any alcohol or drug abuse patient.[facility] HospitalIn the event this information is protected by the Federal Confidentiality of Alcohol and Drug Abuse Patient Records regulations: The Federal rules restrict any use of the information to criminally investigate or prosecute any alcohol or drug abuse patient.[facility] the event this information is protected by the Federal Confidentiality of Alcohol and Drug Abuse Patient Records regulations: The Federal rules restrict any use of the information to criminally investigate or prosecute any alcohol or drug abuse patient.[facility] HospitalIn the event this information is protected by the Federal Confidentiality of Alcohol and Drug Abuse Patient Records regulations: The Federal rules restrict any use of the information to criminally investigate or prosecute any alcohol or drug abuse patient.[facility] HospitalIn the event this information is protected by the Federal Confidentiality of Alcohol and Drug Abuse Patient Records regulations: The Federal rules restrict any use of the information to criminally investigate or prosecute any alcohol or drug abuse patient.[facility] HospitalIn the event this information is protected by the Federal Confidentiality of Alcohol and Drug Abuse Patient Records regulations: The Federal rules restrict any use of the information to criminally investigate or prosecute any alcohol or drug abuse patient.[facility] HospitalIn the event this information is protected by the Federal Confidentiality of Alcohol and Drug Abuse Patient Records regulations: The Federal rules restrict any use of the information to criminally investigate or prosecute any alcohol or drug abuse patient.[facility]In the event this information is protected by the Federal Confidentiality of Alcohol and Drug Abuse Patient Records regulations: The Federal rules restrict any use of the information to criminally investigate or prosecute any alcohol or drug abuse patient.[facility] the event this information is protected by the Federal Confidentiality of Alcohol and Drug Abuse Patient Records regulations: The Federal rules restrict any use of the information to criminally investigate or prosecute any alcohol or drug abuse patient.[facility]In the event this information is protected by the Federal Confidentiality of Alcohol and Drug Abuse Patient Records regulations: The Federal rules restrict any use of the information to criminally investigate or prosecute any alcohol or drug abuse patient.[facility]In the event this information is protected by the Federal Confidentiality of Alcohol and Drug Abuse Patient Records regulations: The Federal rules restrict any use of the information to criminally investigate or prosecute any alcohol or drug abuse patient.[facility] HospitalIn the event this information is protected by the Federal Confidentiality of Alcohol and Drug Abuse Patient Records regulations: The Federal rules restrict any use of the information to criminally investigate or prosecute any alcohol or drug abuse patient.[facility]In the event this information is protected by the Federal Confidentiality of Alcohol and Drug Abuse Patient Records regulations: The Federal rules restrict any use of the information to criminally investigate or prosecute any alcohol or drug abuse patient.[facility] the event this information is protected by the Federal Confidentiality of Alcohol and Drug Abuse Patient Records regulations: The Federal rules restrict any use of the information to criminally investigate or prosecute any alcohol or drug abuse patient.[facility]In the event this information is protected by the Federal Confidentiality of Alcohol and Drug Abuse Patient Records regulations: The Federal rules restrict any use of the information to criminally investigate or prosecute any alcohol or drug abuse patient.[facility] the event this information is protected by the Federal Confidentiality of Alcohol and Drug Abuse Patient Records regulations: The Federal rules restrict any use of the information to criminally investigate or prosecute any alcohol or drug abuse patient.[facility]In the event this information is protected by the Federal Confidentiality of Alcohol and Drug Abuse Patient Records regulations: The Federal rules restrict any use of the information to criminally investigate or prosecute any alcohol or drug abuse patient.[facility] the event this information is protected by the Federal Confidentiality of Alcohol and Drug Abuse Patient Records regulations: The Federal rules restrict any use of the information to criminally investigate or prosecute any alcohol or drug abuse patient.[facility] the event this information is protected by the Federal Confidentiality of Alcohol and Drug Abuse Patient Records regulations: The Federal rules restrict any use of the information to criminally investigate or prosecute any alcohol or drug abuse patient.[facility] the event this information is protected by the Federal Confidentiality of Alcohol and Drug Abuse Patient Records regulations: The Federal rules restrict any use of the information to criminally investigate or prosecute any alcohol or drug abuse patient.[facility]In the event this information is protected by the Federal Confidentiality of Alcohol and Drug Abuse Patient Records regulations: The Federal rules restrict any use of the information to criminally investigate or prosecute any alcohol or drug abuse patient.[facility]In the event this information is protected by the Federal Confidentiality of Alcohol and Drug Abuse Patient Records regulations: The Federal rules restrict any use of the information to criminally investigate or prosecute any alcohol or drug abuse patient.[facility]In the event this information is protected by the Federal Confidentiality of Alcohol and Drug Abuse Patient Records regulations: The Federal rules restrict any use of the information to criminally investigate or prosecute any alcohol or drug abuse patient.[facility]In the event this information is protected by the Federal Confidentiality of Alcohol and Drug Abuse Patient Records regulations: The Federal rules restrict any use of the information to criminally investigate or prosecute any alcohol or drug abuse patient.[facility]In the event this information is protected by the Federal Confidentiality of Alcohol and Drug Abuse Patient Records regulations: The Federal rules restrict any use of the information to criminally investigate or prosecute any alcohol or drug abuse patient.[facility] HospitalIn the event this information is protected by the Federal Confidentiality of Alcohol and Drug Abuse Patient Records regulations: The Federal rules restrict any use of the information to criminally investigate or prosecute any alcohol or drug abuse patient.[facility] HospitalIn the event this information is protected by the Federal Confidentiality of Alcohol and Drug Abuse Patient Records regulations: The Federal rules restrict any use of the information to criminally investigate or prosecute any alcohol or drug abuse patient.[facility] HospitalIn the event this information is protected by the Federal Confidentiality of Alcohol and Drug Abuse Patient Records regulations: The Federal rules restrict any use of the information to criminally investigate or prosecute any alcohol or drug abuse patient.[facility] HospitalIn the event this information is protected by the Federal Confidentiality of Alcohol and Drug Abuse Patient Records regulations: The Federal rules restrict any use of the information to criminally investigate or prosecute any alcohol or drug abuse patient.[facility] HospitalIn the event this information is protected by the Federal Confidentiality of Alcohol and Drug Abuse Patient Records regulations: The Federal rules restrict any use of the information to criminally investigate or prosecute any alcohol or drug abuse patient.[facility] HospitalIn the event this information is protected by the Federal Confidentiality of Alcohol and Drug Abuse Patient Records regulations: The Federal rules restrict any use of the information to criminally investigate or prosecute any alcohol or drug abuse patient.[facility] HospitalIn the event this information is protected by the Federal Confidentiality of Alcohol and Drug Abuse Patient Records regulations: The Federal rules restrict any use of the information to criminally investigate or prosecute any alcohol or drug abuse patient.[facility] HospitalIn the event this information is protected by the Federal Confidentiality of Alcohol and Drug Abuse Patient Records regulations: The Federal rules restrict any use of the information to criminally investigate or prosecute any alcohol or drug abuse patient.[facility] HospitalIn the event this information is protected by the Federal Confidentiality of Alcohol and Drug Abuse Patient Records regulations: The Federal rules restrict any use of the information to criminally investigate or prosecute any alcohol or drug abuse patient.[facility] HospitalIn the event this information is protected by the Federal Confidentiality of Alcohol and Drug Abuse Patient Records regulations: The Federal rules restrict any use of the information to criminally investigate or prosecute any alcohol or drug abuse patient.[facility] HospitalIn the event this information is protected by the Federal Confidentiality of Alcohol and Drug Abuse Patient Records regulations: The Federal rules restrict any use of the information to criminally investigate or prosecute any alcohol or drug abuse patient.[facility] HospitalIn the event this information is protected by the Federal Confidentiality of Alcohol and Drug Abuse Patient Records regulations: The Federal rules restrict any use of the information to criminally investigate or prosecute any alcohol or drug abuse patient.[facility] HospitalIn the event this information is protected by the Federal Confidentiality of Alcohol and Drug Abuse Patient Records regulations: The Federal rules restrict any use of the information to criminally investigate or prosecute any alcohol or drug abuse patient.[facility] HospitalIn the event this information is protected by the Federal Confidentiality of Alcohol and Drug Abuse Patient Records regulations: The Federal rules restrict any use of the information to criminally investigate or prosecute any alcohol or drug abuse patient.[facility] HospitalIn the event this information is protected by the Federal Confidentiality of Alcohol and Drug Abuse Patient Records regulations: The Federal rules restrict any use of the information to criminally investigate or prosecute any alcohol or drug abuse patient.[facility] HospitalIn the event this information is protected by the Federal Confidentiality of Alcohol and Drug Abuse Patient Records regulations: The Federal rules restrict any use of the information to criminally investigate or prosecute any alcohol or drug abuse patient.[facility] HospitalIn the event this information is protected by the Federal Confidentiality of Alcohol and Drug Abuse Patient Records regulations: The Federal rules restrict any use of the information to criminally investigate or prosecute any alcohol or drug abuse patient.[facility] HospitalIn the event this information is protected by the Federal Confidentiality of Alcohol and Drug Abuse Patient Records regulations: The Federal rules restrict any use of the information to criminally investigate or prosecute any alcohol or drug abuse patient.[facility] HospitalIn the event this information is protected by the Federal Confidentiality of Alcohol and Drug Abuse Patient Records regulations: The Federal rules restrict any use of the information to criminally investigate or prosecute any alcohol or drug abuse patient.[facility] the event this information is protected by the Federal Confidentiality of Alcohol and Drug Abuse Patient Records regulations: The Federal rules restrict any use of the information to criminally investigate or prosecute any alcohol or drug abuse patient.[facility] HospitalIn the event this information is protected by the Federal Confidentiality of Alcohol and Drug Abuse Patient Records regulations: The Federal rules restrict any use of the information to criminally investigate or prosecute any alcohol or drug abuse patient.[facility] HospitalIn the event this information is protected by the Federal Confidentiality of Alcohol and Drug Abuse Patient Records regulations: The Federal rules restrict any use of the information to criminally investigate or prosecute any alcohol or drug abuse patient.[facility] HospitalIn the event this information is protected by the Federal Confidentiality of Alcohol and Drug Abuse Patient Records regulations: The Federal rules restrict any use of the information to criminally investigate or prosecute any alcohol or drug abuse patient.[facility] HospitalIn the event this information is protected by the Federal Confidentiality of Alcohol and Drug Abuse Patient Records regulations: The Federal rules restrict any use of the information to criminally investigate or prosecute any alcohol or drug abuse patient.[facility] HospitalIn the event this information is protected by the Federal Confidentiality of Alcohol and Drug Abuse Patient Records regulations: The Federal rules restrict any use of the information to criminally investigate or prosecute any alcohol or drug abuse patient.[facility] Care Teams (unrecognized sec tion and content) Pathologist Relationship Specialty Start Date End Date Kenney Atkins MD [address] [place], [place] [id number] PCP - General Internal Medicine 09/03/16 Pathologist Relationship Specialty Start Date End Date Kenney Atkins MD [address] [place], [place] [id number] PCP - General Internal Medicine 09/03/16 Pathologist Relationship Specialty Start Date End Date Kenney Atkins MD [address] [place] [address] PCP - General Internal Medicine 09/03/16 Pathologist Relationship Specialty Start Date End Date Kenney Atkins MD [address] [place] [address] PCP - General Internal Medicine 09/03/16 Pathologist Relationship Specialty Start Date End Date Kenney Atkins MD [address] [place] [place] [address] PCP - General Internal Medicine 09/03/16 Pathologist Relationship Specialty Start Date End Date Kenney Atkins MD [address] [place] [place] [address] PCP - General Internal Medicine 09/03/16 Pathologist Relationship Specialty Start Date End Date Kenney Atkins MD [address] [place] [place] [address] PCP - General Internal Medicine 09/03/16 Pathologist Relationship Specialty Start Date End Date Kenney Atkins MD [address] [place] [place] [address] PCP - General Internal Medicine 09/03/16 Pathologist Relationship Specialty Start Date End Date Kenney Atkins MD [address] [place] [place] [address] PCP - General Internal Medicine 09/03/16 Pathologist Relationship Specialty Start Date End Date Kenney Atkins MD [address] [place] [place] [address] PCP - General Internal Medicine 09/03/16 Pathologist Relationship Specialty Start Date End Date Kenney Atkins MD [address] [place] [address] PCP - General Internal Medicine 09/03/16 Pathologist Relationship Specialty Start Date End Date Kenney Atkins MD [address] [place] [place] [address] PCP - General Internal Medicine 09/03/16 Pathologist Relationship Specialty Start Date End Date Kenney Atkins MD [address] [place] [place] [address] PCP - General Internal Medicine 09/03/16 Pathologist Relationship Specialty Start Date End Date Kenney Atkins MD [address] [place] [place] [address] PCP - General Internal Medicine 09/03/16 Pathologist Relationship Specialty Start Date End Date Kenney Atkins MD [address] [place] [address] PCP - General Internal Medicine 09/03/16 Pathologist Relationship Specialty Start Date End Date Kenney Atkins MD [address] [facility] [place] [address] PCP - General Internal Medicine 09/03/16 Pathologist Relationship Specialty Start Date End Date Kenney Atkins MD [address] [facility] [place] [address] PCP - General Internal Medicine 09/03/16 Pathologist Relationship Specialty Start Date End Date Kenney Atkins MD [address] [facility] [place] [address] PCP - General Internal Medicine 09/03/16 Pathologist Relationship Specialty Start Date End Date Kenney Atkins MD [address] [facility] [place] [address] PCP - General Internal Medicine 09/03/16 Team Status: Active Member Role Status Dates Dr. Kenney Atkins MD Family Provider Active Dr. Santa Sethi MD Primary Care Provider Active Team Status: Inactive Member Role Status Dates Dr. Kenney Atkins MD Primary Care Provider Active Dr. Santa Sethi MD Attending Provider Active Team Status: Active Member Role Status Dates Dr. Kenney Atkins MD Primary Care Provider Active Omega Bustillos Attending Provider Active Team Status: Inactive Member Role Status Dates Dr. Santa Sethi MD Primary Care Pro vider, Attending Provider, Referring Provider Active Team Status: Inactive Member Role Status Dates Dr. Kenney Atkins MD Referring Provider Active Dr. Shalom Pratt MD Attending Provider Active Dr. Santa Sethi MD Primary Care Provider Active Team Status: Active Member Role Status Dates Dr. Santa Sethi MD Primary Care Provider, Referri ng Provider Active Dr. Shalom Pratt MD Attending Provider, Other Prov ider Active Team Status: Inactive Member Role Status Dates Dr. Santa Sethi MD Primary Care Provider, Referri ng Provider Active Dr. Shalom Pratt MD Attending Provider Active Team Status: Inactive Member Role Status Dates Dr. Santa Sethi MD Primary Care Provider Active Dr. Altaf Vidal DO Emergency Provider Active Pathologist Relationship Specialty Start Date End Date Kenney Atkins MD [address] [place] [address] PCP - General Internal Medicine 09/03/16 Pathologist Relationship Specialty Start Date End Date Kenney Atkins MD [address] [place] [address] PCP - General Internal Medicine 09/03/16 Pathologist Relationship Specialty Start Date End Date Kenney Atkins MD [address] [place] [address] PCP - General Internal Medicine 09/03/16 Pathologist Relationship Specialty Start Date End Date Kenney Atkins MD [address] [place] [address] PCP - General Internal Medicine 09/03/16 Pathologist Relationship Specialty Start Date End Date Kenney Atkins MD [address] [facility] [place] [address] PCP - General Internal Medicine 09/03/16 Pathologist Relationship Specialty Start Date End Date Kenney Atkins MD [address] [facility] [place] [address] PCP - General Internal Medicine 09/03/16 Pathologist Relationship Specialty Start Date End Date Kenney Atkins MD [address] [facility] [place] [address] PCP - General Internal Medicine 09/03/16 Pathologist Relationship Specialty Start Date End Date Santa Sethi MD [address] [place] [address] PCP - General Internal Medicine 01/14/23 Pathologist Relationship Specialty Start Date End Date Kenney Atkins MD [address] [facility] [place] [address] PCP - General Internal Medicine 09/03/16 01/13/23 Santa Sethi MD [address] [place] [address] PCP - General Internal Medicine 01/14/23 Team Status: Inactive Member Role Status Dates Dr. Santa Sethi MD Primary Care Provider, Attendi ng Provider Active Team Status: Inactive Member Role Status Dates Dr. Santa Sethi MD Primary Care Provider Active Dr. Xavier Cherry DO Emergency Provider Active Pathologist Relationship Specialty Start Date End Date Santa Sethi MD [address] [place] [address] PCP - General Internal Medicine 01/14/23 Team Status: Inactive Member Role Status Dates Dr. Santa Sethi MD Primary Care Provider Active Dr. Xavier Cherry DO Attending Provider, Emergency Provider Active Team Status: Active Member Role Status Dates Dr. Santa Sethi MD Primary Care Provider, Referri ng Provider Active Dr. Randy Hussein MD Attending Provider Active Team Status: Inactive Member Role Status Dates Dr. Santa Sethi MD Primary Care Provider, Referri ng Provider Active Lidia NAIR, PA Attending Provider Active Team Status: Inactive Member Role Status Dates Dr. Santa Sethi MD Primary Care Provider Active Lidia NAIR, PA Attending Provider Active Team Status: Active Member Role Status Dates Dr. Santa Sethi MD Primary Care Pro vider, Referring Provider, Other Provider Active Dr. Sonny Sanchez MD Attending Provider Active Pathologist Relationship Specialty Start Date End Date Santa Sethi MD [address] [facility] [address] [place] [address] PCP - General Internal Medicine 01/14/23 Pathologist Relationship Specialty Start Date End Date Santa Sethi MD [address] [facility] [address] [place] [address] PCP - General Internal Medicine 01/14/23 Pathologist Relationship Specialty Start Date End Date Santa Sethi MD [address] [facility] [address] [place] [address] PCP - General Internal Medicine 01/14/23 Pathologist Relationship Specialty Start Date End Date Santa Sethi MD [address] [facility] [address] [place] [address] PCP - General Internal Medicine 01/14/23 Pathologist Relationship Specialty Start Date End Date Santa Sethi MD [address] [facility] [address] [place] [address] PCP - General Internal Medicine 01/14/23 Pathologist Relationship Specialty Start Date End Date Kenney Atkins MD [address] [facility] [address] PCP - General Internal Medicine 09/03/16 01/13/23 Pathologist Relationship Specialty Start Date End Date Santa Sethi MD [address] [place] [address] PCP - General Internal Medicine 01/14/23 Pathologist Relationship Specialty Start Date End Date Santa Sethi MD [address] [place] [address] PCP - General Internal Medicine 01/14/23 Pathologist Relationship Specialty Start Date End Date Santa Sethi MD [address] [place] [address] PCP - General Internal Medicine 01/14/23 Pathologist Relationship Specialty Start Date End Date Santa Sethi MD [address] [place] [address] PCP - General Internal Medicine 01/14/23 Pathologist Relationship Specialty Start Date End Date Santa Sethi MD [address] [place] [address] PCP - General Internal Medicine 01/14/23 Pathologist Relationship Specialty Start Date End Date Santa Sethi MD [address] [place] [address] PCP - General Internal Medicine 01/14/23 Pathologist Relationship Specialty Start Date End Date Santa Sethi MD [address] [facility] [address] [place] [address] PCP - General Internal Medicine 01/14/23 Team Status: Inactive Member Role Status Dates Dr. Santa Sethi MD Primary Care Provider Active Start: May 11, 2024 End: May 11, 2024 Dr. Santa Sethi MD Referring Provider Active Start: May 11, 2024 End: May 11, 2024 KOREY Vo Attending Provider Active Start: May 11, 2024 End: May 11, 2024 Team Status: Inactive Member Role Status Dates Dr. Santa Sethi MD Primary Care Provider Active Start: May 11, 2024 End: May 11, 2024 KOREY Vo Attending Provider Active Start: May 11, 2024 End: May 11, 2024 KOREY Vo Referring Provider Active Start: May 11, 2024 End: May 11, 2024 Team Status: Inactive Member Role Status Dates Dr. Santa Sethi MD Primary Care Provider Active Start: May 24, 2024 End: May 24, 2024 Dr. Santa Sethi MD Attending Provider Active Start: May 24, 2024 End: May 24, 2024 Dr. Santa Sethi MD Referring Provider Active Start: May 24, 2024 End: May 24, 2024 Team Status: Inactive Member Role Status Dates Dr. Santa Sethi MD Primary Care Provider Active Start: June 22, 2024 End: June 22, 2024 Dr. Santa Sethi MD Attending Provider Active Start: June 22, 2024 End: June 22, 2024 Dr. Santa Sethi MD Referring Provider Active Start: June 22, 2024 End: June 22, 2024 Team Status: Active Member Role Status Dates Dr. Santa Sethi MD Primary Care Provider Active Team Status: Inactive Member Role Status Dates Dr. Santa Sethi MD Primary Care Provider Active Start: August 10, 2024 End: August 10, 2024 Ernesto Donohue MD Emergency Provider Active Star t: August 10, 2024 End: August 10, 2024 Pathologist Relationship Specialty Start Date End Date Santa Sethi MD [address] [address] PCP - General Internal Medicine 01/14/23 Team Status: Inactive Member Role Status Dates Dr. Santa Sehti MD Primary Care Provider Active Start: August 10, 2024 End: August 10, 2024 Ernesto Donohue MD Attending Provider Active Star t: August 10, 2024 End: August 10, 2024 Ernesto Donohue MD Emergency Provider Active Star t: August 10, 2024 End: August 10, 2024 Team Status: Inactive Member Role Status Dates Dr. Santa Sethi MD Primary Care Provider Active Start: September 16, 2024 End: September 16, 2024 Dr. Santa Sethi MD Attending Provider Active Start: September 16, 2024 End: September 16, 2024 Team Status: Inactive Member Role Status Dates Dr. Santa Sethi MD Primary Care Provider Active Start: September 16, 2024 End: September 16, 2024 Dr. Santa Sethi MD Attending Provider Active Start: September 16, 2024 End: September 16, 2024 Dr. Santa Sethi MD Referring Provider Active Start: September 16, 2024 End: September 16, 2024 Pathologist Relationship Specialty Start Date End Date Santa Sethi MD [address] [address] PCP - General Internal Medicine 01/14/23 Goals (unrecognized section and content) Goals may be documented in a n alternate sectionGoals may be documented in an alternate sectionGoals may be documented in an alternate sectionGoals may be documented in an alternate sectionGoals may be documented in an alternate sectionGoals may be documented in an alternate sectionGoals may be documented in an alternate sectionGoals may be documented in an alternate sectionGoals may be documented in an alternate section FOR RECORDS PERTAINING TO PATIENTS WHO ARE [...] BE BASED ON THE PRIMARY CLINICAL RECORDS. [facility]. provides no warranty or guarantee of the accuracy or completeness of information in this document.
--- NOTE | 2024-10-18 09:05 | CT_ITS ---
PROCEDURE: LIMITED CHEST CT CARDIAC ONLY 10/18/2024 REASON FOR EXAM: CORONARY ART CALCI/FATIGUE/DYSPNEA ON EX TECHNIQUE: LIMITED CHEST CT CARDIAC ONLY CONTRAST: None One or more dose reduction techniques were used (e.g., Automated exposure control, adjustment of the mA and/or kV according to patient size, use of iterative reconstruction technique). RADIATION DOSE SUMMARY: CTDlvol: 12.19 mGy DLP: 219.42 mGycm COMPARISON: None FINDINGS: Small mediastinal lymph nodes. Atherosclerotic calcification of the aortic arch. Coronary artery calcification. Calcified granuloma in the posterior aspect of the lingula segment of the left upper lobe. No infiltrate is seen. No pulmonary mass lesion. Small hiatal hernia. CT/Limited Chest CT Cardiac Only IMPRESSION: Coronary artery calcification. Reading Location: [id number]
--- NOTE | 2024-10-18 15:36 | CA.SCORE ---
Calcium Scoring Date of Study:: 10/18/24 Indications Indications: SOB Coronary Calcium Scoring: High-resolution Computed Tomographic imaging of the chest was performed on [ 10/18/24], with particular attention paid to the coronary arteries. Images from the examination were analyzed for the presence and extent of coronary artery calcification , using coronary calcium quantification software. The patient tolerated the procedure well and there were no complications. The results of the coronary calcification analysis are provided below. Findings Coronary Artery Left Main (LM): 0 Left Anterior Descending (LAD): 62 Left Circumflex (LCX): 0 Right Coronary Artery (RCA): 0 Total Agatston Score: 62 Percentile Rankin-50% Calcium Scoring Interpretation: Different methods to categorize the overall amount of coronary plaque. 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
== END | disposition home or self-care (01) ==
LOC: CT 08:29
PROVIDERS: PCP Internal Medicine; Referring Provider Internal Medicine; Visit Provider Internal Medicine
DX: I25.10 Atherosclerotic heart disease of native coronary artery without angina pectoris (principal)
CPT/HCPCS: 75571; 76380

== ENCOUNTER → 2024-10-21 | Outpatient (CLI) | payer MEDICARE, OTHER, SELFPAY ==
[2024-10-21 13:08] LABS: Pro- Brain NATRIURETIC PEPTIDE 144 pg/mL (<=1800)
== END | disposition home or self-care (01) ==
LOC: LAB 09:48
PROVIDERS: PCP Internal Medicine; Referring Provider Internal Medicine; Visit Provider Internal Medicine
DX: R06.09 Other forms of dyspnea (principal)
CPT/HCPCS: 36415; 83880

== ENCOUNTER 2024-11-03 11:30 | Outpatient (RCR) | payer MEDICARE, OTHER, SELFPAY ==
--- NOTE | 2024-09-30 10:16 | HP.PTEVAL_ITS ---
Patient's Visit Information Visit Information Visit Information: KENDAL SHARP is a 84 year old F referred to Physical Therapy by Dr. Sonya Sethi MD with a diagnosis of Low Back Pain. Date of Evaluation: 09/30/24 Physical Therapist: Riya Goodman DPT Visit Plan Frequency: 2x /Week Duration: 4 Weeks Plan: Focus on core strength/stabilization and postural endurance. HEP Given IE: TA Contraction, Postural Correction, Bridge, SLS Subjective Subjective: Patient reports that she fell August 04- she passed out and fractured her left foot- she went to the MD who put her in a boot and she was not allowed to be on it for 6 weeks and she thinks she may have also twisted her back. She reports the pain is across the whole low back about the belt line up to the kidney level. The pain does radiate down the left leg to the toes. The left leg has been numb for the last 2 years but no one can tell her why. It is also swollen but this is not new. Pain at the worst is 8/10 aggravated by standing. Best is 0/10 and eases are sitting down and resting. Pain is described as sharp and shooting and dull and achy depending on what she is doi ng. Sleep is disturbed and she can't find a comfortable position. SOB more now than before- no loss or change in bowel or bladder. Recent x-rays no MRI. She was more active prior to this but can't seem to get motivated to get moving again. Lives alone and performs all her own ADL's. PMHx/Meds: in chart Objective Objective: Posture: forward head, rounded shoulders- slight lean to the right- can correct with verbal cues but does not maintain Gait: antalgic- decreased stance on the left LE- poor heel/toe pattern- no AD Observation: in standing- weight shifted to the right LE HR/TR: able with UE A SLS: weight shift but unable to SLS without loss of balance ROM: WNL in all planes of the lumbar and LE- does report tightness or stiffnes s with all ROM in the lumbar spine Palpation: tender along paraspinals from L1-L5 Sensation: WNL to gross touch bilateral LE Strength: Core: poor, Left: Hip: flexion: 4-/5, abd: 4/5, Add: 4+/5, IR/ER:4-/5, Extn: 4-/5, Knee: 4+/5, Ankle: 5/5 Right: Hip: flexion: 4/5, abd: 4/5, Add: 4+/5, IR/ER:4-/5, Extn: 4/5, Knee: 4+/5, Ankle: 5/5 Flex: HS: mild, Gastroc: moderate Special Tests L/S Slump test left side: Negative L/S Slump test right side: Negative L/S Left Straight Leg Raise: Negative L/S Right Straight Leg Raise: Negative Balance/Special Test Scores Oswestry Low Back Score: 7 Goals Goal 1:: Patient will be I with HEP and progression Goal Time Frame: 4-6 Weeks Goal 2:: Patient will maintain proper posture t/o tx session Goal Time Frame: 4-6 Weeks Goal 3:: Patient will report ability to stand for >30 min without pain Goal Time Frame: 4-6 Weeks Goal 4:: Patient will report 80% improvement Goal Time Frame: 4-6 Weeks Rehabilitation Potential Physical Therapy Diagnosis: Patient presents with hypomobility- she has decreased LE and core strength/stabilization and muscular endurance leading to poor posture and increased pain with ADL's Rehabilitation Potential: Good Anticipated Interventions Therapeutic Exercise to Include: Strength training, Endurance training, Balance training, Coordination, Agility training, Body mechanics, Postural training, Flexibilty training, Gait and locomotor training, Neuromotor development, Dynamic Lumbar Stabilization and Scapular Strength/Stabilization For the Purpose of:: To improve muscle performance and motor function TENS: Yes Cryotherapy (ice pack, ice massage): Yes Thermo therapy (hot pack): Yes Ultrasound (thermal/non thermal): Yes Text: Thank you for the opportunity to evaluate your patient. For Medicare and Medicare HMO plans, please review the plan of care and approve it. It will need to be FAXED BACK to us at [phone] for Medicare purposes. For Medicare only, by signing this I certify the plan of care. Please let me know if there are questions or concerns regarding this plan of care. Physician Signature: Date:
--- NOTE | 2024-11-04 08:39 | HP.PT.NRP ---
Patient Information Patient Information: KENDAL SHARP was seen in my office for initial evaluation on 09/30/24. The following Plan of Care was established for this patient: POC Established Initial Frequency: 2x /Week Initial Duration: 4 Weeks Anticipated Interventions Therapeutic Exercise to Include: Strength training, Endurance training, Balance training, Coordination, Agility training, Body mechanics, Postural training, Flexibilty training, Gait and locomotor training, Neuromotor development, Dynamic Lumbar Stabilization and Scapular Strength/Stabilization For the Purpose of:: To improve muscle performance and motor function TENS: Yes Cryotherapy (ice pack, ice massage): Yes Thermo therapy (hot pack): Yes Ultrasound (thermal/non thermal): Yes Last Seen Last Seen: This patient was last seen in our office . Pertinent comments regarding their Physical therapy will appear below: Patient reports that she is doing fine and does not need a re-check. Ready for discharge. At this point I will be discontinuing this patient from physical therapy. I would be happy to see this patient again in the future if found appropriate by the physician. Thank you! Riya Goodman, MAUREENT Balance/Gait/Functional tests Balance/Special Test Scores Oswestry Low Back Score: 7
== END 2024-11-03 19:00 | disposition home or self-care (01) ==
LOC: PT 11:30
PROVIDERS: PCP Internal Medicine; Referring Provider Internal Medicine; Visit Provider Internal Medicine
DX: M54.50 Low back pain, unspecified (principal)
CPT/HCPCS: 97110; 97162

== ENCOUNTER → 2025-02-24 | Outpatient (CLI) | payer MEDICARE, OTHER, SELFPAY | END | disposition home or self-care (01) | LOC: LABSPEC 13:04 | PROVIDERS: PCP Internal Medicine; Referring Provider Physician Assistant Surgical; Visit Provider Physician Assistant Surgical | DX: N39.0 Urinary tract infection, site not specified (principal) | CPT/HCPCS: 87086; 87088 ==